=== PATIENT | male | born 1940 | race Caucasian/White ===

== ENCOUNTER 2017-01-06 06:14 | Day surgery (SDC) | payer MEDICARE, OTHER ==
[2016-12-29 10:38] VITALS: BMI 19.7
[~2017-01-06 06:14] MED LIST: LACTATED RINGERS 1,000 ML IV SCH
[2017-01-06] MEDS: FLURBIPROFEN 0.03% OPHTH DROPS 2.5 ML BTL OP ONE ×3 (06:43→07:00)
[2017-01-06] MEDS: CYCLOPENTOLATE 1% OPHTH SOLN 2 ML BTL OP ONE ×3 (06:45→06:57)
[2017-01-06] MEDS: PHENYLEPHRINE 10% OPHTH DROPS 5 ML BTL OP ONE ×3 (06:46→07:03)
[2017-01-06 06:52] VITALS: RESP 18; TEMP 97.9
[2017-01-06 07:20] LABS: Glucose,Whole Blood 118 mg/dL (75-99)
[2017-01-06] MEDS ORDERED: PROPOFOL 10 MG/ML 20 ML VIAL IV ONE (08:24)
[2017-01-06] MEDS ORDERED: EPINEPHrine (PF) 0.5 ML in BALANCED SALT IRRIG SOLN COMB2 500 ML IRRIGATION ONE (08:31)
[2017-01-06] MEDS ORDERED: BALANCED SALT IRRIG SOLN COMB2 15 ML IRRIG.SOLN IRRIGATION ONE (08:36)
[2017-01-06] MEDS ORDERED: HYALURONATE SODIUM INTRAOCULAR 1 EACH SYRINGE (10MG/ML) INTRAOCULA ONE ×2 (08:37)
--- NOTE | 2017-01-06 08:55 | P.OP ---
Date of Procedure: 01/06/17 Preoperative Diagnosis: Postoperative Diagnosis: Procedure(s) Performed: PREOPERATIVE DIAGNOSIS: Cataract, right eye. Miosis secondary to Flomax usage, right eye. POSTOPERATIVE DIAGNOSIS: Cataract, right eye. OPERATION: Phacoemulsification cataract, right eye. DESCRIPTION OF PROCEDURE: The patient was taken to the preoperative holding area. Intravenous Propofol was given so as to bring about adequate sedation. The following mixture was given for local anesthesia: 5 mL of 2% lidocaine, 5 mL of 0.75% Marcaine, and 1 mL of Wydase. Approximately 4 mL was injected in the retrobulbar space of the surgical eye. Additional 1 mL was then directed to the temporal area of the surgical eye. This was performed to allow adequate neurological block of the facial muscles. The patient was revived and then taken into the operative room. The patient was prepped and draped in the usual sterile manner for the operative eye. A lid speculum was put into position. The conjunctiva was resected back from the limbus in the 12 o'clock position. Bleeding was controlled with electrocautery. A #69 blade was then used and a half-thickness scleral incision approximately 1-mm posterior to the limbus was made on bare sclera. This was shelved in the clear cornea using a crescent knife. Next a 15-degree blade was used to make a stab incision at the 3 o' clock position at the corneolimbal interface. Keratome blade was then used and the superior wound was extended into the anterior chamber. Viscoelastic was injected into the anterior chamber and to maintain its form. A Maluygin ring was inserted and the pupil was stretched into a dilated position. Next, a cystotome was used and a continuous anterior capsulotomy was made without difficulty. Hydrodissection using a blunt cannula and BSS was performed. Phaco probe was then employed and a groove extending from 12 to 6 o'clock in the lens was created. A Ramiro wand was used through the stab incision so as to perform a divide and conquer technique. Next an irrigation aspiration probe was utilized and any residual cortex was removed from the eye. Again, viscoelastic was injected into the anterior chamber. An Jose posterior chamber lens implant was placed in the cartridge and injected into the anterior chamber without difficulty. The Kazeoney hook was utilized to spin the lens into position and this was again performed without any difficulty. The Maluygin ring was removed. The irrigation and aspiration probe was again employed and any residual viscoelastic was removed from the eye. Then BSS was injected into the limbal stab incision and the anterior chamber re-inflated. The conjunctiva was reapproximated using electrocautery. One drop of 0.25% Timoptic was placed over the corneal along with TobraDex ophthalmic ointment. Two sterile patches and a Samaniego eye shield were taped into position. The patient was transported to the recovery room in stable condition. Implants: Pathology: none sent Condition: stable Disposition: same day Indications for Procedure: Operative Findings: Description of Procedure:
[2017-01-06 09:20] VITALS: BP 145/68; PULSE 68
[2017-01-06] MEDS ORDERED: BUPIVACAINE (PF) 0.75% 5 ML, LIDOCAINE 4% (PF) 5 ML, HYALURONIDASE, HUMAN RECOMB 150 UNIT MISCELLANE ONE ×3 (23:00)
[2017-01-06] MEDS ORDERED: GENTAMICIN/PREDNISOL AC OPHTH OINT 3.5GM OPHTHALMIC ONE (23:00)
[2017-01-06] MEDS ORDERED: TIMOLOL 0.5% OPHTH SOLN (PF) 0.2 ML DROPERETTE OP ONE (23:00)
== END 2017-01-06 09:40 | disposition home or self-care (01) ==
LOC: OR 06:14
PROVIDERS: ATTEND Ophthalmology
DX: H26.9 Unspecified cataract (principal); H57.03 Miosis; E11.9 Type 2 diabetes mellitus without complications; Z79.84 Long term (current) use of oral hypoglycemic drugs; I10 Essential (primary) hypertension; E78.5 Hyperlipidemia, unspecified; I25.10 Atherosclerotic heart disease of native coronary artery without angina pectoris; Z87.891 Personal history of nicotine dependence; F99 Mental disorder, not otherwise specified; Z79.899 Other long term (current) drug therapy; Z88.8 Allergy status to other drugs, medicaments and biological substances
CPT/HCPCS: 66984; V2632; J2001; J3470; J0171; J2704

== ENCOUNTER 2017-03-03 10:23 | Day surgery (SDC) | payer MEDICARE, OTHER ==
[2017-02-25 11:38] VITALS: BMI 19.7
[2017-03-03] MEDS: PHENYLEPHRINE 10% OPHTH DROPS 5 ML BTL OP ONE ×3 (11:00→11:18)
[2017-03-03] MEDS: CYCLOPENTOLATE 1% OPHTH SOLN 2 ML BTL OP ONE ×3 (11:03→11:21)
[2017-03-03] MEDS: FLURBIPROFEN 0.03% OPHTH DROPS 2.5 ML BTL OP ONE ×3 (11:06→11:24)
[2017-03-03] MEDS ORDERED: LIDOCAINE 1% 20 ML VIAL (10MG/ML) FOR IV START INTRADERMA ONE (11:22)
[2017-03-03 11:34] VITALS: RESP 16; TEMP 97.9
[2017-03-03 11:55] LABS: Glucose,Whole Blood 92 mg/dL (75-99)
[2017-03-03] MEDS ORDERED: PROPOFOL 10 MG/ML 20 ML VIAL IV ONE (11:56)
[2017-03-03] MEDS ORDERED: BALANCED SALT IRRIG SOLN COMB2 15 ML IRRIG.SOLN INTRAOCULA ONE (12:01)
[2017-03-03] MEDS ORDERED: HYALURONATE SODIUM INTRAOCULAR 1 EACH SYRINGE (10MG/ML) INTRAOCULA ONE (12:02)
[2017-03-03] MEDS ORDERED: EPINEPHrine (PF) 0.5 ML in BALANCED SALT IRRIG SOLN COMB2 500 ML IRRIGATION ONE (12:04)
--- NOTE | 2017-03-03 12:24 | P.OP ---
Date of Procedure: 03/03/17 Preoperative Diagnosis: Postoperative Diagnosis: Procedure(s) Performed: PREOPERATIVE DIAGNOSIS: Cataract, left eye. POSTOPERATIVE DIAGNOSIS: Cataract, left eye. OPERATION: Phacoemulsification cataract, left eye. DESCRIPTION OF PROCEDURE: The patient was taken to the preoperative holding area. Intravenous Propofol was given so as to bring about adequate sedation. The following mixture was given for local anesthesia: 5 mL of 2% lidocaine, 5 mL of 0.75% Marcaine, and 1 mL of Wydase. Approximately 4 mL was injected in the retrobulbar space of the surgical eye. Additional 1 mL was then directed to the temporal area of the surgical eye. This was performed to allow adequate neurological block of the facial muscles. The patient was revived and then taken into the operative room. The patient was prepped and draped in the usual sterile manner for the operative eye. A lid speculum was put into position. The conjunctiva was resected back from the limbus in the 12 o'clock position. Bleeding was controlled with electrocautery. A #69 blade was then used and a half-thickness scleral incision approximately 1-mm posterior to the limbus was made on bare sclera. This was shelved in the clear cornea using a crescent knife. Next a 15-degree blade was used to make a stab incision at the 3 o' clock position at the corneolimbal interface. Keratome blade was then used and the superior wound was extended into the anterior chamber. Viscoelastic was injected into the anterior chamber and to maintain its form. A Maluygin ring was inserted and the pupil stretched into position. Next, a cystotome was used and a continuous anterior capsulotomy was made without difficulty. Hydrodissection using a blunt cannula and BSS was performed. Phaco probe was then employed and a groove extending from 12 to 6 o'clock in the lens was created. A Ramiro wand was used through the stab incision so as to perform a divide and conquer technique. Next an irrigation aspiration probe was utilized and any residual cortex was removed from the eye. Again, viscoelastic was injected into the anterior chamber. An Jose posterior chamber lens implant was placed in the cartridge and injected into the anterior chamber without difficulty. The Sinskey hook was utilized to spin the lens into position and this was again performed without any difficulty. The Maluygin ring was removed from the eye. The irrigation and aspiration probe was again employed and any residual viscoelastic was removed from the eye. Then BSS was injected into the limbal stab incision and the anterior chamber re- inflated. The conjunctiva was reapproximated using electrocautery. One drop of 0.25% Timoptic was placed over the corneal along with TobraDex ophthalmic ointment. Two sterile patches and a Samaniego eye shield were taped into position. The patient was transported to the recovery room in stable condition. Implants: Pathology: none sent Condition: stable Disposition: same day Indications for Procedure: Operative Findings: Description of Procedure:
[2017-03-03 12:49] VITALS: BP 183/83; PULSE 50
[2017-03-03] MEDS ORDERED: TIMOLOL 0.5% OPHTH SOLN (PF) 0.2 ML DROPERETTE OP ONE (23:00)
[2017-03-03] MEDS ORDERED: GENTAMICIN/PREDNISOL AC OPHTH OINT 3.5GM OPHTHALMIC ONE (23:00)
[2017-03-03] MEDS ORDERED: BUPIVACAINE (PF) 0.75% 5 ML, LIDOCAINE 4% (PF) 5 ML, HYALURONIDASE, HUMAN RECOMB 150 UNIT MISCELLANE ONE ×3 (23:00)
== END 2017-03-03 13:10 | disposition home or self-care (01) ==
LOC: OR 10:23 → EEVIPCON 14:00
PROVIDERS: ATTEND Ophthalmology
DX: H26.9 Unspecified cataract (principal); E11.9 Type 2 diabetes mellitus without complications; Z79.84 Long term (current) use of oral hypoglycemic drugs; I10 Essential (primary) hypertension; I25.10 Atherosclerotic heart disease of native coronary artery without angina pectoris; E78.5 Hyperlipidemia, unspecified; Z87.891 Personal history of nicotine dependence; Z79.899 Other long term (current) drug therapy; Z88.8 Allergy status to other drugs, medicaments and biological substances
CPT/HCPCS: 66984; V2632; J2001; J3470; J0171; J2704

== ENCOUNTER → 2018-11-10 | Outpatient (CLI) | payer MEDICARE, OTHER | END | disposition home or self-care (01) | LOC: LABWHC1 10:15 | PROVIDERS: ATTEND Internal Medicine Endocrinology, Diabetes & Metabolism | DX: E11.65 Type 2 diabetes mellitus with hyperglycemia (principal) | CPT/HCPCS: 36415; 82947; 84681 ==

== ENCOUNTER → 2019-02-28 | Outpatient (CLI) | payer MEDICARE, OTHER ==
[2019-02-28 15:57] LABS: LDL Cholesterol,Calculated 46.4 mg/dL (0.0-131.0); VLDL Calculation 16.6 mg/dL (5.00-40.00)
[2019-02-28 17:12] LABS: Hemoglobin A1C 6.4 % (4.0-6.0)
== END | disposition home or self-care (01) ==
LOC: LABWHC1 07:40
PROVIDERS: ATTEND Internal Medicine Endocrinology, Diabetes & Metabolism
DX: E11.65 Type 2 diabetes mellitus with hyperglycemia (principal)
CPT/HCPCS: 36415; 80061; 82043; 82570; 83036; 84443

== ENCOUNTER 2019-03-19 09:50 | Inpatient (IN) | payer MEDICARE, OTHER ==
[2019-03-19] MEDS ORDERED: SODIUM CHLORIDE 0.9% 1,000 ML IV STA (10:29)
[2019-03-19 11:17] LABS: Albumin 2.9 g/dL (3.5-5.0); Calcium 8.4 mg/dL (8.4-10.2); Potassium 4.8 mmol/L (3.5-5.1); Total Bilirubin 0.3 mg/dL (0.2-1.3); Total Protein 5.4 g/dL (6.3-8.2)
--- NOTE | 2019-03-19 11:21 | ED ---
General Adult HPI - General Chief complaint: Urogenital Stated complaint: ABDOMINAL AND GROIN PAIN Time Seen by Provider: 03/19/19 10:04 Source: patient, RN notes reviewed, old records reviewed, Caregiver Mode of arrival: ambulatory Limitations: no limitations - History of Present Illness Initial comments: Patient is a 78-year-old male who presents the emergency department today for evaluation for lower abdominal pain, complaining of dysuria. Patient currently is an long-term. Patient caregiver this time stated that he was at [facility] on March 04. That time he is found to have urinary retention and had a Romero catheter placed. He reports he then later followed up with Dr. Pruett and had a second Romero catheter placed as is the initial one was placed improperly. HEENT he had this second Romero catheter discontinued on of this week. Patient states he feels very fatigued. Patient's caregiver states that he's been acting more lethargic lately. Patient has had no fevers or chills. He reports he did have a bowel movement today. He denies any associated chest pain shortness of breath. He does have a history of mental handicap from a young age. She reportedly did receive a CT of the abdomen and pelvis he was at the other hospital according to caregiver. She stated that he found a mass at that time but she does not know exactly where. - Related Data Home Medications Medication Instructions Recorded Confirmed Calcitriol [Rocaltrol] 0.25 mcg PO DAILY 12/29/16 03/19/19 Cholecalciferol [Vitamin D3] 2,000 unit PO DAILY 12/29/16 03/19/19 Cyanocobalamin [Vitamin B-12] 500 mcg PO DAILY 12/29/16 03/19/19 Ferrous Sulfate [Feosol] 325 mg PO BID 12/29/16 03/19/19 Metoprolol Tartrate [Lopressor] 25 mg PO BID 12/29/16 03/19/19 Simvastatin [Zocor] 40 mg PO HS 12/29/16 03/19/19 Tamsulosin [Flomax] 0.4 mg PO DAILY 12/29/16 03/19/19 Acetaminophen Tab [Tylenol Tab] 650 mg PO Q6H PRN 03/19/19 03/19/19 Divalproex Sodium [Divalproex 1,000 mg PO DAILY 03/19/19 03/19/19 Sodium ER] Insulin Aspart [NovoLOG Flexpen] 5 units SQ AC-TID 03/19/19 03/19/19 Polyethylene Glycol 3350 [Miralax] 17 gm PO DAILY 03/19/19 03/19/19 Sennosides [Senna] 8.6 mg PO HS PRN 03/19/19 03/19/19 Allergies Allergy/AdvReac Type Severity Reaction Status Date / Time lithium Allergy Unknown Verified 03/19/19 10:42 Review of Systems ROS Statement: Those systems with pertinent positive or pertinent negative responses have been documented in the HPI. ROS Other: All systems not noted in ROS Statement are negative. Past Medical History Past Medical History: Cancer, Diabetes Mellitus, Hyperlipidemia, Hypertension, Myocardial Infarction (VT) Additional Past Medical History / Comment(s): Mental handicap-approx capacity at age 9.,bladder Ca approx 2013,elevated potassium Last Myocardial Infarction Date:: 2009 History of Any Multi-Drug Resistant Organisms: None Reported Past Surgical History: Heart Catheterization With Stent Additional Past Surgical History / Comment(s): bladder tumors removed; Cataract R eye Past Anesthesia/Blood Transfusion Reactions: No Reported Reaction Date of Last Stent Placement:: 2009 Past Psychological History: No Psychological Hx Reported Smoking Status: Former smoker Past Alcohol Use History: None Reported Past Drug Use History: None Reported - Past Family History Father Family Medical History: Cancer Additional Family Medical History / Comment(s): lung Mother Family Medical History: COPD Additional Family Medical History / Comment(s): bowel surgeries General Exam - General Exam Comments Initial Comments: Patient is a 78-year-old male. Patient appears pale. Limitations: no limitations General appearance: alert, in no apparent distress Head exam: Present: atraumatic, normocephalic, normal inspection Eye exam: Present: normal appearance, PERRL, EOMI. Absent: scleral icterus, conjunctival injection, periorbital swelling ENT exam: Present: normal exam, mucous membranes moist Neck exam: Present: normal inspection. Absent: tenderness, meningismus, lymphadenopathy Respiratory exam: Present: normal lung sounds bilaterally. Absent: respiratory distress, wheezes, rales, rhonchi, stridor Cardiovascular Exam: Present: regular rate, normal rhythm, normal heart sounds. Absent: systolic murmur, diastolic murmur, rubs, gallop, clicks GI/Abdominal exam: Present: soft, tenderness (lower abdominal tenderness), normal bowel sounds. Absent: distended, guarding, rebound, rigid exam: Absent: normal inspection (And has some irritation of her urethral meatus. Evidence of dried blood at the site likely related to trauma from recent catheters.) Extremities exam: Present: normal inspection, full ROM, normal capillary refill. Absent: tenderness, pedal edema, joint swelling, calf tenderness Back exam: Present: normal inspection Neurological exam: Present: alert, oriented X3, CN II-XII intact Psychiatric exam: Present: normal affect, normal mood Course Vital Signs 03/19/19 09:55 Temperature 97.3 F L Pulse Rate 54 L Respiratory 18 Rate Blood Pressure 91/55 O2 Sat by Pulse 99 Oximetry Medical Decision Making - Medical Decision Making Patient is a 78-year-old male presents with complaints of dysuria. On exam he does have some irritation over the urethral meatus with some dried blood. Patient was able to urinate on his own, after after he urinated he did have approximately 500 mL of urine retained within the bladder. He does not appear to be in significant pain or tenderness. He's had multiple urinary catheters and the fact the Patient is still urinating a little to avoid replacing another catheter at this time. Patient's urinalysis is positive for infection. Urine culture will be completed the Patient was given 1 g of Rocephin. I reviewed patient's CT findings from 712 the [facility]. There is concern for hepatic mass, gallbladder is elongated, there is some distention of the urinary bladder. Other findings noted in the chart. Patient family informed of these results. I reviewed lab studies today which does show an increased alk phos. [facility]. Hemoglobin is slightly increased today 10.1. Patient's GFR does show improvement his previous BUN was 63 and creatinine was 2.0. Today it is 50 for BUN and creatinine is 1.45. I discussed all these findings with family and they're concerned for continued urinary retention and urinary tract infection as well as the liver findings. We will do a gallbladder ultrasound. Patient's case discussed with Dr. Mejia who discussed the case with [facility] Hospitalist. - Lab Data Result diagrams: 03/19/19 10:10 03/19/19 10:10 Lab Results 07/03/19/19 03/19/19 Range/Units 10:10 10:10 10:10 WBC 3.3 L (3.8-10.6) k/uL RBC 3.20 L (4.30-5.90) m/uL Hgb 10.5 L (13.0-17.5) gm/dL Hct 33.6 L (39.0-53.0) % MCV 104.9 H (80.0-100.0) fL MCH 32.7 (25.0-35.0) pg MCHC 31.2 (31.0-37.0) g/dL RDW 15.2 (11.5-15.5) % Plt Count 68 L (150-450) k/uL Neutrophils % 74 % Lymphocytes % 17 % Monocytes % 6 % Eosinophils % 1 % Basophils % 0 % Neutrophils # 2.4 (1.3-7.7) k/uL Lymphocytes # 0.5 L (1.0-4.8) k/uL Monocytes # 0.2 (0-1.0) k/uL Eosinophils # 0.0 (0-0.7) k/uL Basophils # 0.0 (0-0.2) k/uL Manual Slide Review Performed Hypochromasia Slight Macrocytosis Moderate Sodium 143 (137-145) mmol/L Potassium 4.8 (3.5-5.1) mmol/L Chloride 113 H (98-107) mmol/L Carbon Dioxide 21 L (22-30) mmol/L Anion Gap 9 mmol/L BUN 50 H (9-20) mg/dL Creatinine 1.45 H (0.66-1.25) mg/dL Est GFR (CKD-EPI)AfAm 54 (>60 ml/min/1.73 sqM) Est GFR (CKD-EPI)NonAf 46 (>60 ml/min/1.73 sqM) Glucose 156 H (74-99) mg/dL Plasma Lactic Acid Alejandro (0.7-2.0) mmol/L Calcium 8.4 (8.4-10.2) mg/dL Total Bilirubin 0.3 (0.2-1.3) mg/dL AST 70 H (17-59) U/L ALT 71 (21-72) U/L Alkaline Phosphatase 527 H (38-126) U/L Total Protein 5.4 L (6.3-8.2) g/dL Albumin 2.9 L (3.5-5.0) g/dL Amylase 45 (30-110) U/L Lipase 19 L (23-300) U/L Urine Color Yellow Urine Appearance Cloudy (Clear) Urine pH 5.0 (5.0-8.0) Ur Specific [place] 1.014 (1.001-1.035) Urine Protein Trace H (Negative) Urine Glucose (UA) Negative (Negative) Urine Ketones Negative (Negative) Urine Blood Moderate H (Negative) Urine Nitrite Negative (Negative) Urine Bilirubin Negative (Negative) Urine Urobilinogen <2.0 (<2.0) mg/dL Ur Leukocyte Esterase Large H (Negative) Urine RBC 30 H (0-5) /hpf Urine WBC >182 H (0-5) /hpf Urine WBC Clumps Many H (None) /hpf Urine Bacteria Many H (None) /hpf 03/19/19 Range/Units 10:10 WBC (3.8-10.6) k/uL RBC (4.30-5.90) m/uL Hgb (13.0-17.5) gm/dL Hct (39.0-53.0) % MCV (80.0-100.0) fL MCH (25.0-35.0) pg MCHC (31.0-37.0) g/dL RDW (11.5-15.5) % Plt Count (150-450) k/uL Neutrophils % % Lymphocytes % % Monocytes % % Eosinophils % % Basophils % % Neutrophils # (1.3-7.7) k/uL Lymphocytes # (1.0-4.8) k/uL Monocytes # (0-1.0) k/uL Eosinophils # (0-0.7) k/uL Basophils # (0-0.2) k/uL Manual Slide Review Hypochromasia Macrocytosis Sodium (137-145) mmol/L Potassium (3.5-5.1) mmol/L Chloride (98-107) mmol/L Carbon Dioxide (22-30) mmol/L Anion Gap mmol/L BUN (9-20) mg/dL Creatinine (0.66-1.25) mg/dL Est GFR (CKD-EPI)AfAm (>60 ml/min/1.73 sqM) Est GFR (CKD-EPI)NonAf (>60 ml/min/1.73 sqM) Glucose (74-99) mg/dL Plasma Lactic Acid Alejandro 1.5 (0.7-2.0) mmol/L Calcium (8.4-10.2) mg/dL Total Bilirubin (0.2-1.3) mg/dL AST (17-59) U/L ALT (21-72) U/L Alkaline Phosphatase (38-126) U/L Total Protein (6.3-8.2) g/dL Albumin (3.5-5.0) g/dL Amylase (30-110) U/L Lipase (23-300) U/L Urine Color Urine Appearance (Clear) Urine pH (5.0-8.0) Ur Specific [place] (1.001-1.035) Urine Protein (Negative) Urine Glucose (UA) (Negative) Urine Ketones (Negative) Urine Blood (Negative) Urine Nitrite (Negative) Urine Bilirubin (Negative) Urine Urobilinogen (<2.0) mg/dL Ur Leukocyte Esterase (Negative) Urine RBC (0-5) /hpf Urine WBC (0-5) /hpf Urine WBC Clumps (None) /hpf Urine Bacteria (None) /hpf - Radiology Data Radiology results: report reviewed Reviewed the CT from 712 from [facility]. Report of the impression is as follows: Marked decreased attenuation of blood. The heart is just the anemia. Marked limited evaluation due to lack of oral contrast and possibility of intra-abdominal fat and scar ascites insinuating between bowel loops are closely approximated. No evidence of bowel obstruction or pneumoperitoneum. Gallbladders elongated and nearly hydropic. Correlate with lab values to assess or cholecystitis. I suspicion for hepatic mass measuring 5.3 cm a pressing on the theirno hepatitis. Contrast enhanced evaluation is necessary for further evaluation. Findings of chronic pancreatitis. Calcified chronic infrarenal abdominal aortic dissection. Markedly distended urinary bladder with irregularity on the posterior wall which could relate urinary bladder diverticulum. Bibasilar airspace disease likely atelectasis although pneumonitis as possible. Disposition Clinical Impression: UTI (urinary tract infection), Elevated alkaline phosphatase level, Liver mass, History of urinary retention Disposition: ADMITTED IP TO THIS HOSP Condition: Stable Is patient prescribed a controlled substance at d/c from ED?: No Referrals: Corinna Barrera III, MD [Primary Care Provider] - 1-2 days Time of Disposition: 13:28
[2019-03-19 11:36] LABS: Basophils % (A) 0 %; Eosinophils % (A) 1 %; HCT 33.6 % (39.0-53.0); HGB 10.5 gm/dL (13.0-17.5); Hypochromasia Slight; Lymphocytes # (A) 0.5 k/uL (1.0-4.8); Lymphocytes % (A) 17 %; MCH 32.7 pg (25.0-35.0); MCHC 31.2 g/dL (31.0-37.0); MCV 104.9 fL (80.0-100.0); Macrocytosis Moderate; Mean Platelet Volume 8.4; Monocytes # (A) 0.2 k/uL (0-1.0); Monocytes % (A) 6 %; Neutrophils # (A) 2.4 k/uL (1.3-7.7); Neutrophils % (A) 74 %; RDW 15.2 % (11.5-15.5); WBC 3.3 k/uL (3.8-10.6)
[2019-03-19 12:14] LABS: Platelet Count 68 k/uL (150-450)
[2019-03-19 12:16] LABS: Appearance,Urine Cloudy (Clear); Bacteria,Urine Many /hpf; Bilirubin,Urine Negative (Negative); Blood,Urine Moderate (Negative); Color,Urine Yellow; Glucose,Urine (UA) Negative (Negative); Ketones,Urine Negative (Negative); Leukocyte Esterase,Urine Large (Negative); Nitrite,Urine Negative (Negative); Protein,Urine Trace (Negative); RBC,Urine 30 /hpf (0-5); Specific Gravity,Urine 1.014 (1.001-1.035); Urobilinogen,Urine <2.0 mg/dL (<2.0); WBC,Urine >182 /hpf (0-5)
[2019-03-19] MEDS ORDERED: cefTRIAXone IN SWFI 1,000 MG/10 ML SYRINGE IVP STA (12:24)
[2019-03-19] MEDS ORDERED: NALOXONE 0.4 MG/ML 1 ML VIAL IV PRN (13:29)
[2019-03-19] MEDS: SODIUM CHLORIDE 0.9% 1,000 ML IV SCH (13:46)
--- NOTE | 2019-03-19 13:46 | US ---
EXAMINATION TYPE: US gallbladder DATE OF EXAM: 03/19/2019 COMPARISON: NONE CLINICAL HISTORY: Pain. RUQ pain EXAM MEASUREMENTS: Liver Length: 15.7 cm Gallbladder Wall: 0.3 cm CBD: 1.8 cm Right Kidney: 4.5 x 4.5 cm Difficult and limited study due to overlying bowel gas, most of exam done intercostally Pancreas: obscured by overlying midline bowel gas Liver: limited by rib shadowing and overlying bowel gas, mild intrahepatic ductal dilation seen Gallbladder: hydropic, echoes seen within, wall borderline thickened Evidence for sonographic Pacheco's sign: no CBD: dilated Right Kidney: inferior pole obscured by overlying bowel gas Fluid seen within RUQ anterior to liver, around gallbladder and within Morrisons pouch Gallbladder is not visualized. Liver is normal in size without biliary dilatation. Sludge within the gallbladder. The gallbladder wall measures 3.1 mm. This common hepatic duct measure s 1.8 cm. There is no sonographic Pacheco's sign. Limited views of the right kidney are unremarkable. There is some fluid fluid in the right upper quad rant. IMPRESSION: 1. MILD ASCITES. 2. SLUDGE-FILLED HYDROPIC GALLBLADDER WITH A THICKENED GALLBLADDER WALL MAY REPRESENT CHRONIC CHOLECY STITIS. 3. LIMITED STUDY.
[2019-03-19 15:22] VITALS: BMI 18.8
[2019-03-19 17:13] LABS: Glucose,Whole Blood 122 mg/dL (75-99)
[2019-03-19] MEDS: INSULIN ASPART (NovoLOG) 100 UNIT/ML VIAL SQ SCH ×2 (17:52→20:27)
[2019-03-19] MEDS ORDERED: SENNOSIDES 8.6 MG TAB PO PRN (18:28)
[2019-03-19] MEDS ORDERED: ACETAMINOPHEN TAB 325 MG TAB PO PRN (18:28)
[2019-03-19] MEDS ORDERED: HYDROcodone/APAP 5-325MG 1 EACH TAB PO PRN (19:12)
[2019-03-19] MEDS ORDERED: ALPRAZolam 0.25 MG TAB PO PRN (19:12)
[2019-03-19 20:09] LABS: Glucose,Whole Blood 250 mg/dL (75-99)
[2019-03-19] MEDS: FERROUS SULFATE 325 MG TAB PO SCH (20:27)
[2019-03-19] MEDS: HEPARIN SODIUM,PORCINE 5,000 UNIT/ML 1 ML VIAL SQ SCH (20:27)
[2019-03-19] MEDS: METOPROLOL TARTRATE 25 MG TAB PO SCH (20:27)
[2019-03-19] MEDS: ATORVASTATIN 20 MG TAB PO SCH (20:27)
--- NOTE | 2019-03-19 21:48 | HP ---
HISTORY AND PHYSICAL DATE OF SERVICE: 03/19/2019 CHIEF COMPLAINT: Lower abdominal and diffuse abdominal pain and dysuria. HISTORY OF PRESENT ILLNESS: This 78-year-old gentleman with a past medical history of multiple medical problems including diabetes, hypertension, hyperlipidemia, myocardial infarction, history of mental handicap, history of bladder cancer in 2013, history of CAD/ stent being followed by Dr. Barrera in the outpatient setting. The patient recently had problems with urinary retention. A catheter was inserted and subsequently it was removed by Dr. Pruett. The patient apparently was in [facility] and CT scan at that time showed multiple hepatic lesions. The patient is living in an assisted living facility. Because of increasing dysuria and pain, lower abdominal pain and pain at the tip of the penis, the patient was taken to [facility] and admitted for further evaluation and treatment. There is no history of fever, rigors or chills. No history of headache, loss of consciousness or seizures. The patient also had an ultrasound of the abdomen which showed sludge and possibly chronic cholecystitis also. There is no history of fever, rigors, chills at this time. PAST MEDICAL HISTORY: History of diabetes type 2, hypertension, hyperlipidemia, myocardial infarction, history of bladder cancer. MEDICATIONS: Prior to admission home medications are: 1. Senna 8.6 q.h.s. p.r.n. 2. MiraLAX 17 g p.o. daily. 3. Tylenol 650 q.6h p.r.n. 4. Depakote 1000 mg p.o. daily. 5. Vitamin B12 500 mcg. 6. Vitamin D3 2000 daily. 7. Rocaltrol 0.25 mcg p.o. daily. 8. NovoLog 5 units a.c. t.i.d. 9. Flomax 0.4 daily. 10.Zocor 40 mg q.h.s. 11.Lopressor 25 mg p.o. b.i.d. 12.Iron sulfate 320 mg p.o. b.i.d. ALLERGIES: LITHIUM. FAMILY HISTORY: History of lung cancer in the family. SOCIAL HISTORY: Previous history of smoking. No history of current smoking or alcohol intake. REVIEW OF SYSTEMS: ENT: Diminished vision. Diminished hearing. CARDIOVASCULAR: No angina or palpitations. RESPIRATION: As mentioned earlier. GI: As mentioned earlier. : As mentioned earlier. CENTRAL NERVOUS SYSTEM: No numbness or weakness. ALLERGY/IMMUNOLOGY: No asthma or hayfever. MUSCULOSKELETAL as mentioned earlier. HEMATOLOGY/ONCOLOGY: No history of anemia. ENDOCRINE: History of diabetes. No hypothyroidism. CONSTITUTIONAL: As mentioned earlier. DERMATOLOGY: Negative. RHEUMATOLOGY negative. PSYCHIATRY as mentioned earlier. PHYSICAL EXAMINATION: Alert and oriented x3. Pulse is 48, blood pressure 149/90, respiration 20, temperature 97 degrees, pulse ox 99 on room air. HEENT: Conjunctivae normal. NECK: No JVD. CARDIOVASCULAR: S1, S2 muffled. No S3, no S4. RESPIRATORY: Breath sounds diminished in the bases. No rhonchi. No crackles. ABDOMEN: Soft. Mild diffuse tenderness in the lower abdomen. No guarding. No rigidity. No mass palpable. Minimal erythema of the penis tip present. LEGS: No edema. No swelling. NERVOUS SYSTEM: Higher functions as mentioned earlier. Moves all 4 limbs. No focal motor or sensory deficits. LYMPHATICS: No lymph nodes palpable in the neck, axillae or groin. SKIN: No ulcer, rash or bleeding. JOINTS: No active deforming arthropathy. LABS: WBC 3.2, hemoglobin 10.4, platelets 68, and creatinine is 1.44. UA noted. ASSESSMENT: 1. Acute lower abdominal pain with acute urinary tract infection for evaluation. 2. Multiple hepatic lesions, rule out malignancy. 3. Increased AST and as well as alkaline phosphatase. 4. Increased creatinine with possible acute renal failure. 5. Mild pancytopenia with anemia of undetermined etiology. 6. Diabetes mellitus type 2. 7. Hypertension. 8. Hyperlipidemia. 9. History of myocardial infarction. 10.History of mental handicap. 11.History of bladder cancer. 12.History of coronary artery disease/ stent. 13.Remote history of nicotine dependence. 14.Remote history of severe protein calorie malnutrition with BMI of 18.8. 15.FULL CODE. RECOMMENDATIONS AND DISCUSSION: In this 78-year-old gentleman who presented with multiple complex medical issues, we will monitor the patient closely. Continue the current medications, management and symptomatic treatment. We will initiate broad-spectrum IV antibiotics. Otherwise, I would recommend DVT prophylaxis and resume the home medications. Further recommendations to follow. A copy of dictation forwarded to Dr. Barrera who is the primary physician. MMODL / SHELLN: [id number] /
[2019-03-20] MEDS: SODIUM CHLORIDE 0.9% 1,000 ML IV SCH ×3 (06:25→22:00)
[2019-03-20 07:07] LABS: Glucose,Whole Blood 146 mg/dL (75-99)
[2019-03-20] MEDS: INSULIN ASPART (NovoLOG) 100 UNIT/ML VIAL SQ SCH ×7 (07:20→21:59)
[2019-03-20] MEDS: TAMSULOSIN 0.4 MG CAP.ER.24H PO SCH (07:51)
[2019-03-20] MEDS: METOPROLOL TARTRATE 25 MG TAB PO SCH ×2 (07:51→21:59)
[2019-03-20] MEDS: FERROUS SULFATE 325 MG TAB PO SCH ×2 (07:51→21:59)
[2019-03-20] MEDS: POLYETHYLENE GLYCOL 3350 17 GM POWD.PACK PO SCH (07:52)
[2019-03-20] MEDS: CHOLECALCIFEROL 1,000 UNIT TAB PO SCH (07:52)
[2019-03-20] MEDS: CYANOCOBALAMIN 500 MCG TAB PO SCH (07:52)
[2019-03-20] MEDS: HEPARIN SODIUM,PORCINE 5,000 UNIT/ML 1 ML VIAL SQ SCH ×2 (07:53→21:59)
[2019-03-20] MEDS: CALCITRIOL 0.25 MCG CAP PO SCH (07:54)
[2019-03-20] MEDS: DIVALPROEX ER 500 MG TAB.ER.24H PO SCH (07:55)
--- NOTE | 2019-03-20 08:23 | P.GSCN ---
History of Present Illness Consult date: 03/20/19 History of present illness: The patient is 78. We are asked see the patient for urine infection and urine retention. He is known to for this problem recently. He was in [facility] with a catheter. Apparently the catheter was positioned and appropriately. It was replaced. The catheter is some scar has been removed and he seems to be voiding without difficulty. He is having some dysuria. His urine did look infected. Review of Systems All systems: negative - Constitutional Denies fever, Denies weight loss - EENT Eyes: denies blurred vision Ears, nose, mouth and throat: Denies dysphagia - Cardiovascular Denies chest pain, Denies shortness of breath - Respiratory Denies cough, Denies 7 - Gastrointestinal Reports as per HPI - Genitourinary Denies dysuria, Denies hematuria - Integumentary Denies rash, Denies unusual bruising - Neurological Denies headaches, Denies syncope - Hematologic/Lymphatic Denies easy bleeding, Denies easy bruising Past Medical History Past Medical History: Cancer, Diabetes Mellitus, Hyperlipidemia, Hypertension, Myocardial Infarction ([place]) Additional Past Medical History / Comment(s): Mental handicap-approx capacity at age 9.,bladder Ca approx 2013,elevated potassium Last Myocardial Infarction Date:: 2009 History of Any Multi-Drug Resistant Organisms: None Reported Past Surgical History: Heart Catheterization With Stent Additional Past Surgical History / Comment(s): bladder tumors removed; Cataract R eye Past Anesthesia/Blood Transfusion Reactions: No Reported Reaction Date of Last Stent Placement:: 2009 Past Psychological History: No Psychological Hx Reported Additional Psychological History / Comment(s): mentally handicapped Smoking Status: Former smoker Past Alcohol Use History: None Reported Additional Past Alcohol Use History / Comment(s): quit smoking 2009,1ppd Past Drug Use History: None Reported - Past Family History Father Family Medical History: Cancer Additional Family Medical History / Comment(s): lung Mother Family Medical History: COPD Additional Family Medical History / Comment(s): bowel surgeries Medications and Allergies Home Medications Medication Instructions Recorded Confirmed Type Calcitriol [Rocaltrol] 0.25 mcg PO DAILY 12/29/16 03/19/19 History Cholecalciferol [Vitamin D3] 2,000 unit PO DAILY 12/29/16 03/19/19 History Cyanocobalamin [Vitamin B-12] 500 mcg PO DAILY 12/29/16 03/19/19 History Ferrous Sulfate [Feosol] 325 mg PO BID 12/29/16 03/19/19 History Metoprolol Tartrate [Lopressor] 25 mg PO BID 12/29/16 03/19/19 History Simvastatin [Zocor] 40 mg PO HS 12/29/16 03/19/19 History Tamsulosin [Flomax] 0.4 mg PO DAILY 12/29/16 03/19/19 History Acetaminophen Tab [Tylenol Tab] 650 mg PO Q6H PRN 03/19/19 03/19/19 History Divalproex Sodium [Divalproex 1,000 mg PO DAILY 03/19/19 03/19/19 History Sodium ER] Insulin Aspart [NovoLOG Flexpen] 5 units SQ AC-TID 03/19/19 03/19/19 History Polyethylene Glycol 3350 [Miralax] 17 gm PO DAILY 03/19/19 03/19/19 History Sennosides [Senna] 8.6 mg PO HS PRN 03/19/19 03/19/19 History Allergies Allergy/AdvReac Type Severity Reaction Status Date / Time lithium Allergy Unknown Verified 03/19/19 10:42 Surgical - Exam Vital Signs Temp Pulse Resp BP Pulse Ox 97.3 F L 54 L 18 91/55 99 03/19/19 09:55 03/19/19 09:55 03/19/19 09:55 03/19/19 09:55 03/19/19 09:55 - General well developed, well nourished, no distress - Eyes PERRL - ENT no hearing loss - Neck trachea midline - Respiratory normal expansion, normal respiratory effort - Abdomen Abdomen: soft, non tender - Genitourinary Deferred is recently done by - Integumentary no rash - Neurologic normal coordination, normal sensation - Musculoskeletal normal posture - Psychiatric oriented to time, oriented to person, oriented to place, speech is normal, memory intact Results - Labs 03/19/19 10:10 03/19/19 10:10 Abnormal Lab Results - Last 24 Hours (Table) 03/19/19 03/19/19 03/19/19 Range/Units 10:10 10:10 10:10 WBC 3.3 L (3.8-10.6) k/uL RBC 3.20 L (4.30-5.90) m/uL Hgb 10.5 L (13.0-17.5) gm/dL Hct 33.6 L (39.0-53.0) % MCV 104.9 H (80.0-100.0) fL Plt Count 68 L (150-450) k/uL Lymphocytes # 0.5 L (1.0-4.8) k/uL Chloride 113 H (98-107) mmol/L Carbon Dioxide 21 L (22-30) mmol/L BUN 50 H (9-20) mg/dL Creatinine 1.45 H (0.66-1.25) mg/dL Glucose 156 H (74-99) mg/dL POC Glucose (mg/dL) (75-99) mg/dL AST 70 H (17-59) U/L Alkaline Phosphatase 527 H (38-126) U/L Total Protein 5.4 L (6.3-8.2) g/dL Albumin 2.9 L (3.5-5.0) g/dL Lipase 19 L (23-300) U/L Urine Protein Trace H (Negative) Urine Blood Moderate H (Negative) Ur Leukocyte Esterase Large H (Negative) Urine RBC 30 H (0-5) /hpf Urine WBC >182 H (0-5) /hpf Urine WBC Clumps Many H (None) /hpf Urine Bacteria Many H (None) /hpf 03/19/19 03/19/19 03/20/19 Range/Units 17:11 20:08 07:05 WBC (3.8-10.6) k/uL RBC (4.30-5.90) m/uL Hgb (13.0-17.5) gm/dL Hct (39.0-53.0) % MCV (80.0-100.0) fL Plt Count (150-450) k/uL Lymphocytes # (1.0-4.8) k/uL Chloride (98-107) mmol/L Carbon Dioxide (22-30) mmol/L BUN (9-20) mg/dL Creatinine (0.66-1.25) mg/dL Glucose (74-99) mg/dL POC Glucose (mg/dL) 122 H 250 H 146 H (75-99) mg/dL AST (17-59) U/L Alkaline Phosphatase (38-126) U/L Total Protein (6.3-8.2) g/dL Albumin (3.5-5.0) g/dL Lipase (23-300) U/L Urine Protein (Negative) Urine Blood (Negative) Ur Leukocyte Esterase (Negative) Urine RBC (0-5) /hpf Urine WBC (0-5) /hpf Urine WBC Clumps (None) /hpf Urine Bacteria (None) /hpf Microbiology - Last 24 Hours (Table) 03/19/19 10:10 Blood Culture - Final Blood 03/19/19 10:10 Urine Culture - Preliminary Urine,Voided Diabetes panel 03/19/19 Range/Units 10:10 Sodium 143 (137-145) mmol/L Potassium 4.8 (3.5-5.1) mmol/L Chloride 113 H (98-107) mmol/L Carbon Dioxide 21 L (22-30) mmol/L BUN 50 H (9-20) mg/dL Creatinine 1.45 H (0.66-1.25) mg/dL Glucose 156 H (74-99) mg/dL Calcium 8.4 (8.4-10.2) mg/dL AST 70 H (17-59) U/L ALT 71 (21-72) U/L Alkaline Phosphatase 527 H (38-126) U/L Total Protein 5.4 L (6.3-8.2) g/dL Albumin 2.9 L (3.5-5.0) g/dL Calcium panel 03/19/19 Range/Units 10:10 Calcium 8.4 (8.4-10.2) mg/dL Albumin 2.9 L (3.5-5.0) g/dL Pituitary panel 03/19/19 Range/Units 10:10 Sodium 143 (137-145) mmol/L Potassium 4.8 (3.5-5.1) mmol/L Chloride 113 H (98-107) mmol/L Carbon Dioxide 21 L (22-30) mmol/L BUN 50 H (9-20) mg/dL Creatinine 1.45 H (0.66-1.25) mg/dL Glucose 156 H (74-99) mg/dL Calcium 8.4 (8.4-10.2) mg/dL Adrenal panel 03/19/19 Range/Units 10:10 Sodium 143 (137-145) mmol/L Potassium 4.8 (3.5-5.1) mmol/L Chloride 113 H (98-107) mmol/L Carbon Dioxide 21 L (22-30) mmol/L BUN 50 H (9-20) mg/dL Creatinine 1.45 H (0.66-1.25) mg/dL Glucose 156 H (74-99) mg/dL Calcium 8.4 (8.4-10.2) mg/dL Total Bilirubin 0.3 (0.2-1.3) mg/dL AST 70 H (17-59) U/L ALT 71 (21-72) U/L Alkaline Phosphatase 527 H (38-126) U/L Total Protein 5.4 L (6.3-8.2) g/dL Albumin 2.9 L (3.5-5.0) g/dL Assessment and Plan Assessment: Impression: Urine retention apparently resolved. Urinary tract infection Recommendations: At this point in time I will check urine residuals but nothing further urologically will be required.
--- NOTE | 2019-03-20 09:42 | P.GSCN ---
History of Present Illness Consult date: 03/20/19 Reason for Consult: Abdominal pain History of present illness: Patient came to the emergency department complaining of dysuria and pain from Fo chan catheter. Patient is complaining of fatigue. No complaints of pain initially in the ER. Denies pain currently. We are consulted however for chronic cholecystitis. Patient had a CAT scan performed while at [facility] apparently showing multiple hepatic lesions. Patient with e levated alkaline phosphatase and AST. Bilirubin normal. An ultrasound of the patient's gallbladder took place showing sludge and a thickened wall. No liver lesions were commented upon. The patient is not able to provide any history as to what the plan was regarding his liver lesions. It is unclear who saw the patient while he was at [facility] for this issue. No history of liver issues in the past reportedly. He does have a personal history of bladder cancer previously. Review of Systems The patient denies any acute changes in vision or hearing, no dysphagia or odynophagia, no chest pain or shortness of breath, no dysuria or hematuria, no headache, no runny nose, no rectal bleeding or melena, no unexplained weight loss Past Medical History Past Medical History: Cancer, Diabetes Mellitus, Hyperlipidemia, Hypertension, Myocardial Infarction ([place]) Additional Past Medical History / Comment(s): Mental handicap-approx capacity at age 9.,bladder Ca approx 2013,elevated potassium Last Myocardial Infarction Date:: 2009 History of Any Multi-Drug Resistant Organisms: None Reported Past Surgical History: Heart Catheterization With Stent Additional Past Surgical History / Comment(s): bladder tumors removed; Cataract R eye Past Anesthesia/Blood Transfusion Reactions: No Reported Reaction Date of Last Stent Placement:: 2009 Past Psychological History: No Psychological Hx Reported Additional Psychological History / Comment(s): mentally handicapped Smoking Status: Former smoker Past Alcohol Use History: None Reported Additional Past Alcohol Use History / Comment(s): quit smoking 2009,1ppd Past Drug Use History: None Reported - Past Family History Father Family Medical History: Cancer Additional Family Medical History / Comment(s): lung Mother Family Medical History: COPD Additional Family Medical History / Comment(s): bowel surgeries Medications and Allergies Home Medications Medication Instructions Recorded Confirmed Type Calcitriol [Rocaltrol] 0.25 mcg PO DAILY 12/29/16 03/19/19 History Cholecalciferol [Vitamin D3] 2,000 unit PO DAILY 12/29/16 03/19/19 History Cyanocobalamin [Vitamin B-12] 500 mcg PO DAILY 12/29/16 03/19/19 History Ferrous Sulfate [Feosol] 325 mg PO BID 12/29/16 03/19/19 History Metoprolol Tartrate [Lopressor] 25 mg PO BID 12/29/16 03/19/19 History Simvastatin [Zocor] 40 mg PO HS 12/29/16 03/19/19 History Tamsulosin [Flomax] 0.4 mg PO DAILY 12/29/16 03/19/19 History Acetaminophen Tab [Tylenol Tab] 650 mg PO Q6H PRN 03/19/19 03/19/19 History Divalproex Sodium [Divalproex 1,000 mg PO DAILY 03/19/19 03/19/19 History Sodium ER] Insulin Aspart [NovoLOG Flexpen] 5 units SQ AC-TID 03/19/19 03/19/19 History Polyethylene Glycol 3350 [Miralax] 17 gm PO DAILY 03/19/19 03/19/19 History Sennosides [Senna] 8.6 mg PO HS PRN 03/19/19 03/19/19 History Allergies Allergy/AdvReac Type Severity Reaction Status Date / Time lithium Allergy Unknown Verified 03/19/19 10:42 Surgical - Exam Vital Signs Temp Pulse Resp BP Pulse Ox 97.3 F L 54 L 18 91/55 99 03/19/19 09:55 03/19/19 09:55 03/19/19 09:55 03/19/19 09:55 03/19/19 09:55 Physical exam: General: Well-developed, well-nourished HEENT: Normocephalic, sclerae nonicteric Abdomen: Nontender, nondistended Extremities: No edema Neuro: Alert and oriented Results - Labs 03/19/19 10:10 03/19/19 10:10 Abnormal Lab Results - Last 24 Hours (Table) 03/19/19 03/19/19 03/19/19 Range/Units 10:10 10:10 10:10 WBC 3.3 L (3.8-10.6) k/uL RBC 3.20 L (4.30-5.90) m/uL Hgb 10.5 L (13.0-17.5) gm/dL Hct 33.6 L (39.0-53.0) % MCV 104.9 H (80.0-100.0) fL Plt Count 68 L (150-450) k/uL Lymphocytes # 0.5 L (1.0-4.8) k/uL Chloride 113 H (98-107) mmol/L Carbon Dioxide 21 L (22-30) mmol/L BUN 50 H (9-20) mg/dL Creatinine 1.45 H (0.66-1.25) mg/dL Glucose 156 H (74-99) mg/dL POC Glucose (mg/dL) (75-99) mg/dL AST 70 H (17-59) U/L Alkaline Phosphatase 527 H (38-126) U/L Total Protein 5.4 L (6.3-8.2) g/dL Albumin 2.9 L (3.5-5.0) g/dL Lipase 19 L (23-300) U/L Urine Protein Trace H (Negative) Urine Blood Moderate H (Negative) Ur Leukocyte Esterase Large H (Negative) Urine RBC 30 H (0-5) /hpf Urine WBC >182 H (0-5) /hpf Urine WBC Clumps Many H (None) /hpf Urine Bacteria Many H (None) /hpf 03/19/19 03/19/19 03/20/19 Range/Units 17:11 20:08 07:05 WBC (3.8-10.6) k/uL RBC (4.30-5.90) m/uL Hgb (13.0-17.5) gm/dL Hct (39.0-53.0) % MCV (80.0-100.0) fL Plt Count (150-450) k/uL Lymphocytes # (1.0-4.8) k/uL Chloride (98-107) mmol/L Carbon Dioxide (22-30) mmol/L BUN (9-20) mg/dL Creatinine (0.66-1.25) mg/dL Glucose (74-99) mg/dL POC Glucose (mg/dL) 122 H 250 H 146 H (75-99) mg/dL AST (17-59) U/L Alkaline Phosphatase (38-126) U/L Total Protein (6.3-8.2) g/dL Albumin (3.5-5.0) g/dL Lipase (23-300) U/L Urine Protein (Negative) Urine Blood (Negative) Ur Leukocyte Esterase (Negative) Urine RBC (0-5) /hpf Urine WBC (0-5) /hpf Urine WBC Clumps (None) /hpf Urine Bacteria (None) /hpf Microbiology - Last 24 Hours (Table) 03/19/19 10:10 Blood Culture - Final Blood 03/19/19 10:10 Urine Culture - Preliminary Urine,Voided Diabetes panel 03/19/19 Range/Units 10:10 Sodium 143 (137-145) mmol/L Potassium 4.8 (3.5-5.1) mmol/L Chloride 113 H (98-107) mmol/L Carbon Dioxide 21 L (22-30) mmol/L BUN 50 H (9-20) mg/dL Creatinine 1.45 H (0.66-1.25) mg/dL Glucose 156 H (74-99) mg/dL Calcium 8.4 (8.4-10.2) mg/dL AST 70 H (17-59) U/L ALT 71 (21-72) U/L Alkaline Phosphatase 527 H (38-126) U/L Total Protein 5.4 L (6.3-8.2) g/dL Albumin 2.9 L (3.5-5.0) g/dL Calcium panel 03/19/19 Range/Units 10:10 Calcium 8.4 (8.4-10.2) mg/dL Albumin 2.9 L (3.5-5.0) g/dL Pituitary panel 03/19/19 Range/Units 10:10 Sodium 143 (137-145) mmol/L Potassium 4.8 (3.5-5.1) mmol/L Chloride 113 H (98-107) mmol/L Carbon Dioxide 21 L (22-30) mmol/L BUN 50 H (9-20) mg/dL Creatinine 1.45 H (0.66-1.25) mg/dL Glucose 156 H (74-99) mg/dL Calcium 8.4 (8.4-10.2) mg/dL Adrenal panel 03/19/19 Range/Units 10:10 Sodium 143 (137-145) mmol/L Potassium 4.8 (3.5-5.1) mmol/L Chloride 113 H (98-107) mmol/L Carbon Dioxide 21 L (22-30) mmol/L BUN 50 H (9-20) mg/dL Creatinine 1.45 H (0.66-1.25) mg/dL Glucose 156 H (74-99) mg/dL Calcium 8.4 (8.4-10.2) mg/dL Total Bilirubin 0.3 (0.2-1.3) mg/dL AST 70 H (17-59) U/L ALT 71 (21-72) U/L Alkaline Phosphatase 527 H (38-126) U/L Total Protein 5.4 L (6.3-8.2) g/dL Albumin 2.9 L (3.5-5.0) g/dL Assessment and Plan (1) Chronic cholecystitis Narrative/Plan: Patient with ultrasound showing thickened gallbladder wall with sludge. The patient is asymptomatic with no complaints of right upper quadrant pain at this time. His exam fails to reveal any tenderness as well. Of more concern is the patient's elevated alkaline phosphatase and the liver lesions reportedly seen on recent CAT scan. Will obtain CAT scan report and recent labs from [facility]. Possible oncology or GI evaluation may be required following that. No surgical intervention planned at this time given his lack of symptoms and the additional findings on CAT scan. Current Visit: Yes Status: Acute Code(s): K81.1 - CHRONIC CHOLECYSTITIS SNOMED Code(s): 48660760
[2019-03-20 11:23] LABS: Albumin 2.3 g/dL (3.5-5.0); Calcium 7.7 mg/dL (8.4-10.2); Total Bilirubin 0.2 mg/dL (0.2-1.3); Total Protein 4.6 g/dL (6.3-8.2)
[2019-03-20 11:29] LABS: Basophils % (A) 0 %; Eosinophils % (A) 0 %; HCT 26.7 % (39.0-53.0); Hypochromasia Moderate; Lymphocytes # (A) 0.5 k/uL (1.0-4.8); Lymphocytes % (A) 8 %; MCH 33.5 pg (25.0-35.0); MCHC 30.8 g/dL (31.0-37.0); MCV 108.7 fL (80.0-100.0); Macrocytosis Marked; Mean Platelet Volume 8.8; Monocytes # (A) 0.3 k/uL (0-1.0); Monocytes % (A) 6 %; Neutrophils # (A) 5.1 k/uL (1.3-7.7); Neutrophils % (A) 86 %; RBC 2.46 m/uL (4.30-5.90); RDW 15.8 % (11.5-15.5); WBC 5.9 k/uL (3.8-10.6)
[2019-03-20 11:42] LABS: Glucose,Whole Blood 140 mg/dL (75-99)
[2019-03-20 11:59] LABS: HGB 8.2 gm/dL (13.0-17.5)
[2019-03-20 12:00] LABS: Platelet Count 61 k/uL (150-450)
[2019-03-20 17:21] LABS: Glucose,Whole Blood 117 mg/dL (75-99)
--- NOTE | 2019-03-20 18:34 | PN ---
PROGRESS NOTE DATE OF SERVICE: 03/20/2019 This 78-year-old gentleman admitted with significant abdominal pain and dysuria, also had possible UTI. The patient had urinary difficulties for which the catheter was inserted recently. The patient was also evaluated in [facility]. The patient also was found to have hydropic gallbladder. The possibility of chronic cholecystitis considered but however the patient also had hepatic lesions and possibly MRI has been recommended by Dr. Mcnulty on the present admission. The patient's liver enzymes especially alkaline phosphatase is worsening at this point. PAST MEDICAL HISTORY: Past medical history reviewed. REVIEW OF SYSTEMS: CARDIOVASCULAR SYSTEM: No angina or palpitations. RESPIRATION as mentioned earlier. GASTROINTESTINAL: As mentioned earlier. as mentioned earlier. NERVOUS SYSTEM: No numbness or weakness. MEDICATION: 1. Tylenol 650 q.6 p.r.n. 2. Eunice 5 mg q.6h p.r.n. 3. Xanax 0.5 t.i.d. 4. Lipitor 20 mg q.h.s. 5. Rocaltrol 0.25 mg daily. 6. Rocephin 1 g daily. 7. Vitamin D3 2000 daily. 8. Vitamin B12 500 mg p.o. daily. 9. Depakote ER 1000 mg p.o. daily. 10.Iron sulfate 320 mg p.o. daily. 11.Heparin subcu b.i.d. 12.NovoLog a.c. and q.h.s. 13.NovoLog scale another 5 units t.i.d. 14.Lopressor 25 mg p.o. b.i.d. 15.Narcan 0.2 q.2h p.r.n. 16.MiraLAX 17 g p.o. daily. 17.Senokot 8.6 q.h.s. p.r.n. 18.Flomax 0.4 daily. PHYSICAL EXAM: Patient is alert, oriented x3, pulse 54, blood pressure 130/72, respiration 20, temperature 97.4, pulse ox 99% on room air. HEENT: Conjunctivae normal. Oral mucosa moist. NECK is no jugular venous distention. No carotid bruit. No lymph node enlargement. CARDIOVASCULAR: S1, S2 muffled. RESPIRATION: Breath sounds diminished in the bases. No rhonchi. No crackles. ABDOMEN: Soft. Mild diffuse distention. Nontender. No mass palpable. No rigidity. No ascites. Bowel sounds present. LEGS: No edema and no swelling. NERVOUS SYSTEM: Higher functions as mentioned earlier. Moves all 4 limbs. No focal motor or sensory deficits. LYMPHATICS: No lymph nodes palpable in the neck, axillae or groin. SKIN: No ulcer, rash or bleeding. JOINTS: No active deforming arthropathy. LAB STUDIES: WBC 5.2. Hemoglobin is 8.2, sodium 141, potassium 4, creatinine is 1.43. AST is 167, ALT is 127, alkaline phosphatase is 712 and albumin is 2.3. UA noted. ASSESSMENT: 1. Acute lower abdominal pain with acute urinary tract infection for evaluation, present on admission. 2. Multiple hepatic lesions, rule out malignancy. 3. Possible hydropic gallbladder with gallbladder with sludge. 4. Increased AST, ALT, as well as alkaline phosphatase. Rule out extrahepatic biliary obstruction. 5. Increased creatinine with possible acute renal failure. 6. Mild pancytopenia of undetermined etiology. 7. Diabetes type 2. 8. Hypertension. 9. Hyperlipidemia. 10.History of myocardial infarction history. 11.History of mental handicap. 12.History of bladder cancer. 13.History of coronary artery disease/ stent. 14.History of nicotine dependence. 15.Severe protein calorie malnutrition with BMI of 18.8. 16.FULL CODE. RECOMMENDATIONS AND DISCUSSION: In this 78-year-old woman who presented with multiple complex medical issues, we will monitor the patient closely. Continue the current medications, management and symptomatic treatment. I recommend repeat labs. Surgical evaluation appreciated. I would recommend MRI and closely follow with Urology. The creatinine is stable at this time but however, exact etiology of the multiple symptomatology and multiple lab abnormalities are unknown at this time. The possibility of extrahepatic obstruction versus intrahepatic lesion to be considered. See orders for details. Further recommendations to follow. Symptomatic treatment also provided. Prognosis guarded. We will add antibiotics. Await cultures. MMODL / IJN: [id number] /
--- NOTE | 2019-03-20 19:24 | P.CONS ---
History of Present Illness - Reason for Consult Consult date: 03/20/19 Hepatic mass Requesting physician: Isis Sloan - Chief Complaint Abdominal pain, dysuria - History of Present Illness 78-year-old with medical history significant for diabetes, hypertension, hyperlipidemia, myocardial infarction, developmental delay, coronary artery disease with prior stenting, bladder cancer diagnosed in 2013 with urinary retention who presented to the hospital with complaints of abdominal pain. The patient had reported lower abdominal pain with dysuria who presented for further evaluation. Consult for gastroenterology to to hepatic mass. The patient did have a computed tomography scan at [facility] with findings of a 5 cm mass in the liver adjacent to the thierno hepatis. Extremities was noted on this exam as well as a hydropic appearing gallbladder. Patient denies any prior history of liver disease. Does not believe any family history of liver disease. No prior history of viral hepatitis. Denies any history of heavy alcohol abuse. Denies any signs or symptoms of jaundice or cold colorectal colored urine. The patient has been seen by the surgical service with MRI of the abdomen pending as well as tumor markers. Review of Systems REVIEW OF SYSTEMS: CONSTITUTIONAL: Denies any fevers, chills, weight change or fatigue. CARDIOVASCULAR: Denies any chest pain, palpitations high or low blood pressures RESPIRATORY: Denies any shortness of breath, hemoptysis or cough. GENITOURINARY: Romero in place with reports of hematuria and dysuria. MUSCULOSKELETAL: No weakness reported. SKIN: Denies any new rashes or lesions, jaundice or pallor. PSYCHIATRIC: Denies any depression or anxiety. NEUROLOGY: Denies headache, denies any new focal deficits, history of developmental delay. EARS/NOSE/THROAT: No recent hearing change, congestion, nasal discharge or sore throat. EYES: No pain in eyes, discharge or change in vision. GASTROINTESTINAL: As per HPI. Past Medical History Past Medical History: Cancer, Diabetes Mellitus, Hyperlipidemia, Hypertension, Myocardial Infarction ([place]) Additional Past Medical History / Comment(s): Mental handicap-approx capacity at age 9.,bladder Ca approx 2013,elevated potassium Last Myocardial Infarction Date:: 2009 History of Any Multi-Drug Resistant Organisms: None Reported Past Surgical History: Heart Catheterization With Stent Additional Past Surgical History / Comment(s): bladder tumors removed; Cataract R eye Past Anesthesia/Blood Transfusion Reactions: No Reported Reaction Date of Last Stent Placement:: 2009 Past Psychological History: No Psychological Hx Reported Additional Psychological History / Comment(s): mentally handicapped Smoking Status: Former smoker Past Alcohol Use History: None Reported Additional Past Alcohol Use History / Comment(s): quit smoking 2009,1ppd Past Drug Use History: None Reported - Past Family History Father Family Medical History: Cancer Additional Family Medical History / Comment(s): lung Mother Family Medical History: COPD Additional Family Medical History / Comment(s): bowel surgeries Medications and Allergies Home Medications Medication Instructions Recorded Confirmed Type Calcitriol [Rocaltrol] 0.25 mcg PO DAILY 12/29/16 03/19/19 History Cholecalciferol [Vitamin D3] 2,000 unit PO DAILY 12/29/16 03/19/19 History Cyanocobalamin [Vitamin B-12] 500 mcg PO DAILY 12/29/16 03/19/19 History Ferrous Sulfate [Feosol] 325 mg PO BID 12/29/16 03/19/19 History Metoprolol Tartrate [Lopressor] 25 mg PO BID 12/29/16 03/19/19 History Simvastatin [Zocor] 40 mg PO HS 12/29/16 03/19/19 History Tamsulosin [Flomax] 0.4 mg PO DAILY 12/29/16 03/19/19 History Acetaminophen Tab [Tylenol Tab] 650 mg PO Q6H PRN 03/19/19 03/19/19 History Divalproex Sodium [Divalproex 1,000 mg PO DAILY 03/19/19 03/19/19 History Sodium ER] Insulin Aspart [NovoLOG Flexpen] 5 units SQ AC-TID 03/19/19 03/19/19 History Polyethylene Glycol 3350 [Miralax] 17 gm PO DAILY 03/19/19 03/19/19 History Sennosides [Senna] 8.6 mg PO HS PRN 03/19/19 03/19/19 History Allergies Allergy/AdvReac Type Severity Reaction Status Date / Time lithium Allergy Unknown Verified 03/19/19 10:42 Physical Exam Vitals: Vital Signs Temp Pulse Resp BP Pulse Ox 03/20/19 14:24 54 L 03/20/19 12:08 97.5 F L 54 L 20 138/78 99 03/20/19 08:30 52 L 03/20/19 07:57 98.2 F 52 L 20 154/69 91 L 03/19/19 22:09 97.3 F L 51 L 16 132/56 96 Intake and Output 03/20/19 03/20/19 03/20/19 06:59 14:59 22:59 Output Total 600 200 600 Balance -600 -200 -600 Output: Urine 600 600 Post Void Residual 200 Other: # Voids 2 1 1 Weight 51.256 kg On physical examination, patient appears comfortable in no apparent distress. HEAD: Normocephalic, atraumatic. EYES: No scleral icterus. No conjunctival injection. MOUTH: No lesions, tongue midline. NECK: Trachea midline, no gross abnormalities. CHEST: Decreased air entry bilaterally. HEART: S1-S2 appreciated. ABDOMEN: Soft, obese. Bowel sounds are positive. No organomegaly. No guarding or rigidity. EXTREMITIES: No pedal edema. SKIN: No rashes, no jaundice. NEUROLOGIC: Alert and oriented to person and place. No focal deficits. Results CBC & Chem 7: 03/20/19 10:46 03/20/19 10:46 Labs: Abnormal Lab Results - Last 24 Hours (Table) 03/19/19 03/20/19 03/20/19 Range/Units 20:08 07:05 10:46 RBC 2.46 L (4.30-5.90) m/uL Hgb 8.2 L D (13.0-17.5) gm/dL Hct 26.7 L (39.0-53.0) % MCV 108.7 H (80.0-100.0) fL MCHC 30.8 L (31.0-37.0) g/dL RDW 15.8 H (11.5-15.5) % Plt Count 61 L (150-450) k/uL Lymphocytes # 0.5 L (1.0-4.8) k/uL Macrocytosis Marked A Chloride (98-107) mmol/L Carbon Dioxide (22-30) mmol/L BUN (9-20) mg/dL Creatinine (0.66-1.25) mg/dL Glucose (74-99) mg/dL POC Glucose (mg/dL) 250 H 146 H (75-99) mg/dL Calcium (8.4-10.2) mg/dL AST (17-59) U/L ALT (21-72) U/L Alkaline Phosphatase (38-126) U/L Total Protein (6.3-8.2) g/dL Albumin (3.5-5.0) g/dL 03/20/19 03/20/19 03/20/19 Range/Units 10:46 11:31 17:08 RBC (4.30-5.90) m/uL Hgb (13.0-17.5) gm/dL Hct (39.0-53.0) % MCV (80.0-100.0) fL MCHC (31.0-37.0) g/dL RDW (11.5-15.5) % Plt Count (150-450) k/uL Lymphocytes # (1.0-4.8) k/uL Macrocytosis Chloride 114 H (98-107) mmol/L Carbon Dioxide 20 L (22-30) mmol/L BUN 47 H (9-20) mg/dL Creatinine 1.43 H (0.66-1.25) mg/dL Glucose 131 H (74-99) mg/dL POC Glucose (mg/dL) 140 H 117 H (75-99) mg/dL Calcium 7.7 L (8.4-10.2) mg/dL AST 167 H (17-59) U/L ALT 127 H (21-72) U/L Alkaline Phosphatase 712 H (38-126) U/L Total Protein 4.6 L (6.3-8.2) g/dL Albumin 2.3 L (3.5-5.0) g/dL Microbiology - Last 24 Hours (Table) 03/19/19 10:10 Blood Culture Gram Stain - Preliminary Blood Blood Culture - Preliminary Gram Neg Bacilli 03/19/19 10:10 Urine Culture - Final Urine,Voided 03/19/19 10:10 Blood Culture - Final Blood US - abdomen: report reviewed (Ultrasound of the gallbladder with findings of mild ascites, sludge-filled hydropic gallbladder with thickened gallbladder wall.) Assessment and Plan (1) Liver mass Narrative/Plan: 78-year-old with multiple medical comorbidities. Previously underwent a com puted tomography scan of the abdomen with findings of a possible liver mass in the area adjacent to the thierno hepatis. Ultrasound on current admission significant for mild ascites as well as a sludge-filled hydropic gallbladder with thickened gallbladder wall. With liver enzymes significant for total bilirubin 0.2, alkaline phosphatase of 117, AST 167, and ALT 127. Current Visit: Yes Status: Acute Code(s): R16.0 - HEPATOMEGALY, NOT ELSEWHERE CLASSIFIED SNOMED Code(s): 336698969 (2) Chronic cholecystitis Current Visit: Yes Status: Acute Code(s): K81.1 - CHRONIC CHOLECYSTITIS SNOMED Code(s): 60709823 Plan: Supportive care Appreciate recommendations from surgical service MRI of the abdomen has been ordered AFP has been ordered Continue to follow CBC, CMP Continue antibiotic therapy Thank you for allowing us to participate in the care of the patient we will continue to follow
[2019-03-20 21:47] LABS: Glucose,Whole Blood 141 mg/dL (75-99)
[2019-03-20] MEDS: ATORVASTATIN 20 MG TAB PO SCH (21:59)
[2019-03-21 07:06] LABS: Glucose,Whole Blood 120 mg/dL (75-99)
[2019-03-21] MEDS: INSULIN ASPART (NovoLOG) 100 UNIT/ML VIAL SQ SCH ×7 (09:01→20:52)
[2019-03-21] MEDS: CHOLECALCIFEROL 1,000 UNIT TAB PO SCH (09:06)
[2019-03-21] MEDS: CYANOCOBALAMIN 500 MCG TAB PO SCH (09:07)
[2019-03-21] MEDS: METOPROLOL TARTRATE 25 MG TAB PO SCH (09:07)
[2019-03-21] MEDS: TAMSULOSIN 0.4 MG CAP.ER.24H PO SCH (09:07)
[2019-03-21] MEDS: CALCITRIOL 0.25 MCG CAP PO SCH (09:09)
[2019-03-21] MEDS: POLYETHYLENE GLYCOL 3350 17 GM POWD.PACK PO SCH (09:09)
[2019-03-21] MEDS: DIVALPROEX ER 500 MG TAB.ER.24H PO SCH (09:09)
[2019-03-21] MEDS: HEPARIN SODIUM,PORCINE 5,000 UNIT/ML 1 ML VIAL SQ SCH ×2 (09:12→20:47)
[2019-03-21] MEDS: FERROUS SULFATE 325 MG TAB PO SCH ×2 (09:13→20:47)
[2019-03-21 09:45] LABS: Alpha Fetoprotein, Tumor Mkr 4.4 ng/mL (0.0-7.9)
[2019-03-21 09:50] LABS: Basophils % (A) 0 %; Eosinophils # (A) 0.1 k/uL (0-0.7); Eosinophils % (A) 1 %; HCT 31.4 % (39.0-53.0); HGB 9.1 gm/dL (13.0-17.5); Hypochromasia Marked; Lymphocytes # (A) 0.4 k/uL (1.0-4.8); Lymphocytes % (A) 11 %; MCH 31.4 pg (25.0-35.0); MCV 108.2 fL (80.0-100.0); Macrocytosis Marked; Mean Platelet Volume 8.2; Monocytes # (A) 0.2 k/uL (0-1.0); Monocytes % (A) 4 %; Neutrophils # (A) 3.3 k/uL (1.3-7.7); Neutrophils % (A) 82 %; RDW 15.4 % (11.5-15.5)
[2019-03-21 09:52] LABS: Albumin 2.8 g/dL (3.5-5.0); Calcium 8.2 mg/dL (8.4-10.2); Potassium 4.7 mmol/L (3.5-5.1); Total Bilirubin 0.8 mg/dL (0.2-1.3); Total Protein 5.4 g/dL (6.3-8.2)
[2019-03-21 10:02] LABS: Hemoglobin A1C 6.3 % (4.0-6.0)
[2019-03-21 10:06] LABS: Platelet Count 71 k/uL (150-450)
[2019-03-21 11:45] LABS: Hepatitis A Antibody IgM Non-Reactive (Non-Reactive); Hepatitis B Core IgM Non-Reactive (Non-Reactive); Hepatitis B Surface Antigen Non-Reactive (Non-Reactive); Hepatitis C IgG Antibody Non-Reactive (Non-Reactive)
[2019-03-21 11:46] LABS: Glucose,Whole Blood 136 mg/dL (75-99)
--- NOTE | 2019-03-21 14:09 | P.PN ---
Subjective Progress Note Date: 03/21/19 CHIEF COMPLAINT: Abdominal pain HISTORY OF PRESENT ILLNESS: Patient examined at the bedside this morning. Patient denies abdominal pain. Denies nausea or vomiting. He appears slightly confused. Hemoglobin 9.1, up from 8.2 yesterday. Total bilirubin 0.8. AST 329. ALT 2015. Alkaline phosphatase 1283. Hepatitis screen nonreactive. PHYSICAL EXAM: VITAL SIGNS: Currently stable. GENERAL: Well-developed in no acute distress. HEENT: No sclera icterus. Extraocular movements grossly intact. Moist buccal mucosa. Head is atraumatic, normocephalic. Hears conversational speech. No nasal drainage. NECK: Supple without lymphadenopathy. CHEST: Non-labored respirations and equal bilateral excursions. CARDIOVASCULAR: Regular rate with regular rhythm. Palpable 2+ radial pulses. ABDOMEN: Soft. Nondistended. Nontender. Positive bowel sounds. MUSCULOSKELETAL: No clubbing, cyanosis or edema. NEUROLOGIC: No focal or lateralizing signs. Cranial nerves II through XII grossly intact. PSYCH: Appropriate affect. Awake and alert. Confused. SKIN: Well perfused. Good skin turgor. ASSESSMENT: 1. Chronic cholecystitis, US shows thickened gallbladder with sludge, patient asymptomatic 2. Transaminitis 3. Liver mass, 5cm, visualized on recent computed tomography scan PLAN: 1. Continue diet as tolerated 2. Patient scheduled for MRI of the liver today 3. No surgical intervention recommended at this time 4. GI services is following patient also 5. Further recommendations pending MRI results and patient course Nurse practitioner note has been reviewed by physician. Signing provider agrees with the documented findings, assessment, and plan of care. Objective - Vital Signs Vital signs: Vital Signs Temp 97.4 F L 03/21/19 05:00 Pulse 52 L 03/21/19 08:00 Resp 16 03/21/19 08:00 BP 153/63 03/21/19 05:00 Pulse Ox 98 03/21/19 05:00 Intake & Output 03/20/19 03/21/19 03/21/19 18:59 06:59 18:59 Intake Total 1240 Output Total 800 Balance -800 1240 Weight 51.256 kg Intake: Intake, IV Titration 650 Amount Sodium Chloride 0.9% 1, 650 000 ml @ 75 mls/hr IV . [id number] [facility] Rx#:[id number] Oral 590 Output: Urine 600 Post Void Residual 200 Other: Voiding Method Toilet Toilet # Voids 1 1 # Bowel Movements 1 - Labs CBC & Chem 7: 03/21/19 08:57 03/21/19 08:57 Labs: Abnormal Lab Results - Last 24 Hours (Table) 03/20/19 03/20/19 03/20/19 Range/Units 10:46 17:08 21:45 RBC (4.30-5.90) m/uL Hgb (13.0-17.5) gm/dL Hct (39.0-53.0) % MCV (80.0-100.0) fL MCHC (31.0-37.0) g/dL Plt Count (150-450) k/uL Lymphocytes # (1.0-4.8) k/uL Macrocytosis Chloride (98-107) mmol/L BUN (9-20) mg/dL Creatinine (0.66-1.25) mg/dL Glucose (74-99) mg/dL POC Glucose (mg/dL) 117 H 141 H (75-99) mg/dL Hemoglobin A1c 6.3 H (4.0-6.0) % Calcium (8.4-10.2) mg/dL AST (17-59) U/L ALT (21-72) U/L Alkaline Phosphatase (38-126) U/L Total Protein (6.3-8.2) g/dL Albumin (3.5-5.0) g/dL 03/21/19 03/21/19 03/21/19 Range/Units 07:02 08:57 08:57 RBC 2.90 L (4.30-5.90) m/uL Hgb 9.1 L (13.0-17.5) gm/dL Hct 31.4 L (39.0-53.0) % MCV 108.2 H (80.0-100.0) fL MCHC 29.0 L (31.0-37.0) g/dL Plt Count 71 L (150-450) k/uL Lymphocytes # 0.4 L (1.0-4.8) k/uL Macrocytosis Marked A Chloride 113 H (98-107) mmol/L BUN 43 H (9-20) mg/dL Creatinine 1.44 H (0.66-1.25) mg/dL Glucose 154 H (74-99) mg/dL POC Glucose (mg/dL) 120 H (75-99) mg/dL Hemoglobin A1c (4.0-6.0) % Calcium 8.2 L (8.4-10.2) mg/dL AST 329 H (17-59) U/L ALT 215 H (21-72) U/L Alkaline Phosphatase 1283 H (38-126) U/L Total Protein 5.4 L (6.3-8.2) g/dL Albumin 2.8 L (3.5-5.0) g/dL 03/21/19 Range/Units 11:44 RBC (4.30-5.90) m/uL Hgb (13.0-17.5) gm/dL Hct (39.0-53.0) % MCV (80.0-100.0) fL MCHC (31.0-37.0) g/dL Plt Count (150-450) k/uL Lymphocytes # (1.0-4.8) k/uL Macrocytosis Chloride (98-107) mmol/L BUN (9-20) mg/dL Creatinine (0.66-1.25) mg/dL Glucose (74-99) mg/dL POC Glucose (mg/dL) 136 H (75-99) mg/dL Hemoglobin A1c (4.0-6.0) % Calcium (8.4-10.2) mg/dL AST (17-59) U/L ALT (21-72) U/L Alkaline Phosphatase (38-126) U/L Total Protein (6.3-8.2) g/dL Albumin (3.5-5.0) g/dL Microbiology - Last 24 Hours (Table) 03/19/19 10:10 Blood Culture Gram Stain - Final Blood Blood Culture - Final Klebsiella oxytoca 03/19/19 10:10 Urine Culture - Final Urine,Voided Assessment and Plan (1) Chronic cholecystitis Current Visit: Yes Status: Acute Code(s): K81.1 - CHRONIC CHOLECYSTITIS SNOMED Code(s): 60941886 (2) Elevated alkaline phosphatase level Current Visit: Yes Status: Acute Code(s): R74.8 - ABNORMAL LEVELS OF OTHER SERUM ENZYMES SNOMED Code(s): 083619255 (3) Liver mass Current Visit: Yes Status: Acute Code(s): R16.0 - HEPATOMEGALY, NOT ELSEWHERE CLASSIFIED SNOMED Code(s): 753590655
--- NOTE | 2019-03-21 16:20 | P.PN ---
Subjective 78-year-old male came in with a right upper quadrant abdominal pain patient was evaluated by general surgery patient appears to have chronic cholecystitis, patient later found to have elevated liver enzymes with elevated bilirubin which continue to go up. I'll stop his statin, gastro-oncology evaluated the patient as well we'll repeat liver enzymes tomorrow MRCP is being obtained at this time there is a possibility of liver mass and the there may be an obstruction of the common bile duct as well. Patient probably has hydropic gallbladder. Patient appears to have some loss of appetite patient probably has ascites although doesn't appear to have cirrhosis at this time, we will await for the MRI results. Constitutional: Denied any fatigue denied any fever. Cardio vascular: denied any chest pain, palpitations Gastrointestinal denied any nausea vomiting Pulmonary: Denied any shortness of breath cough Neurologic denied any new focal deficits All inpatient medications were reviewed and appropriate changes in these medications as dictated in the interval history and assessment and plan. Objective - Vital Signs Vital signs: Vital Signs Temp 97.4 F L 03/21/19 12:15 Pulse 44 L 03/21/19 12:15 Resp 20 03/21/19 12:15 BP 154/76 03/21/19 12:15 Pulse Ox 92 L 03/21/19 12:15 Intake & Output 03/20/19 03/21/19 03/21/19 18:59 06:59 18:59 Intake Total 1240 Output Total 800 Balance -800 1240 Weight 51.256 kg Intake: Intake, IV Titration 650 Amount Sodium Chloride 0.9% 1, 650 000 ml @ 75 mls/hr IV . [id number] [facility] Rx#:[id number] Oral 590 Output: Urine 600 Post Void Residual 200 Other: Voiding Method Toilet Toilet # Voids 1 1 3 # Bowel Movements 1 1 - Exam PHYSICAL EXAMINATION: GENERAL: The patient is alert and oriented x3, not in any acute distress. Well developed, well nourished. HEENT: Pupils are round and equally reacting to light. EOMI. No scleral icterus. No conjunctival pallor. Normocephalic, atraumatic. No pharyngeal erythema. No thyromegaly. CARDIOVASCULAR: S1 and S2 present. No murmurs, rubs, or gallops. PULMONARY: Chest is clear to auscultation, no wheezing or crackles. ABDOMEN: Soft, nontender, abdomen is bit distended with gas as well as ascites, normoactive bowel sounds. No palpable organomegaly. MUSCULOSKELETAL: No joint swelling or deformity. EXTREMITIES: No cyanosis, clubbing, or pedal edema. NEUROLOGICAL: Gross neurological examination did not reveal any focal deficits. SKIN: No rashes. - Labs CBC & Chem 7: 03/21/19 08:57 03/21/19 08:57 Labs: Abnormal Lab Results - Last 24 Hours (Table) 03/20/19 03/20/19 03/20/19 Range/Units 10:46 17:08 21:45 RBC (4.30-5.90) m/uL Hgb (13.0-17.5) gm/dL Hct (39.0-53.0) % MCV (80.0-100.0) fL MCHC (31.0-37.0) g/dL Plt Count (150-450) k/uL Lymphocytes # (1.0-4.8) k/uL Macrocytosis Chloride (98-107) mmol/L BUN (9-20) mg/dL Creatinine (0.66-1.25) mg/dL Glucose (74-99) mg/dL POC Glucose (mg/dL) 117 H 141 H (75-99) mg/dL Hemoglobin A1c 6.3 H (4.0-6.0) % Calcium (8.4-10.2) mg/dL AST (17-59) U/L ALT (21-72) U/L Alkaline Phosphatase (38-126) U/L Total Protein (6.3-8.2) g/dL Albumin (3.5-5.0) g/dL 03/21/19 03/21/19 03/21/19 Range/Units 07:02 08:57 08:57 RBC 2.90 L (4.30-5.90) m/uL Hgb 9.1 L (13.0-17.5) gm/dL Hct 31.4 L (39.0-53.0) % MCV 108.2 H (80.0-100.0) fL MCHC 29.0 L (31.0-37.0) g/dL Plt Count 71 L (150-450) k/uL Lymphocytes # 0.4 L (1.0-4.8) k/uL Macrocytosis Marked A Chloride 113 H (98-107) mmol/L BUN 43 H (9-20) mg/dL Creatinine 1.44 H (0.66-1.25) mg/dL Glucose 154 H (74-99) mg/dL POC Glucose (mg/dL) 120 H (75-99) mg/dL Hemoglobin A1c (4.0-6.0) % Calcium 8.2 L (8.4-10.2) mg/dL AST 329 H (17-59) U/L ALT 215 H (21-72) U/L Alkaline Phosphatase 1283 H (38-126) U/L Total Protein 5.4 L (6.3-8.2) g/dL Albumin 2.8 L (3.5-5.0) g/dL 03/21/19 Range/Units 11:44 RBC (4.30-5.90) m/uL Hgb (13.0-17.5) gm/dL Hct (39.0-53.0) % MCV (80.0-100.0) fL MCHC (31.0-37.0) g/dL Plt Count (150-450) k/uL Lymphocytes # (1.0-4.8) k/uL Macrocytosis Chloride (98-107) mmol/L BUN (9-20) mg/dL Creatinine (0.66-1.25) mg/dL Glucose (74-99) mg/dL POC Glucose (mg/dL) 136 H (75-99) mg/dL Hemoglobin A1c (4.0-6.0) % Calcium (8.4-10.2) mg/dL AST (17-59) U/L ALT (21-72) U/L Alkaline Phosphatase (38-126) U/L Total Protein (6.3-8.2) g/dL Albumin (3.5-5.0) g/dL Microbiology - Last 24 Hours (Table) 03/19/19 10:10 Blood Culture Gram Stain - Final Blood Blood Culture - Final Klebsiella oxytoca Assessment and Plan Plan: -Abdominal pain possibly of chronic cholecystitis awaiting MRI results -Elevated liver enzymes be looking for obstruction of the biliary tract with elevated bilirubin and significant elevation of alkaline phosphatase awaiting MRI results and patient probably has a liver lesion which can be better assessed with MRI -Possible urinary tract infection with hematuria on admission, continue with Rocephin at this time urine cultures are positive for Klebsiella oxytoca which is pansensitive patient will need 2 more days of antibiotic -Renal failure mostly appears to be chronic kidney disease as there is no response to IV fluids patient is presently hyperchloremic will increase him to drink water and will monitor kidney function I cannot state she has chronic kidney disease as I do not know his previous baseline creatinine -Type 2 diabetes mellitus, continue with present regimen monitor CBG -hypertension -hyperlipidemia -
[2019-03-21 17:04] LABS: Glucose,Whole Blood 104 mg/dL (75-99)
--- NOTE | 2019-03-21 17:18 | PN ---
PROGRESS NOTE DATE OF DICTATION: 03/21/2019 REASON FOR CONSULTATION: Abdominal pain. HISTORY OF PRESENT ILLNESS: The patient is a 78-year-old pleasant white male admitted to the hospital with lower abdominal pain, and he was seen by Dr. Patel on consultation yesterday. Apparently he did have a CT of the abdomen and pelvis done at [facility] a few days ago and was noted to have a 5 cm mass in the liver adjacent to the thierno hepatis. To well define this lesion, he underwent an MRI of the liver today, results of which are still not available at the time of this dictation. The patient is a poor historian. He denies any complaints today. PHYSICAL EXAMINATION: He appears comfortable. No apparent distress. Vital signs are stable. Blood pressure is 163/63, pulse rate 50, temperature 97.8. HEENT examination unremarkable. Conjunctivae pink. Sclerae anicteric. Oral cavity no lesions. Neck: No JVD or lymph node enlargement. Chest was clear to auscultation. Heart: Regular rate and rhythm. Abdomen is soft. Bowel sounds are positive. No organomegaly. Extremities: No pedal edema. Skin: No rashes. Neurologic: Alert and oriented x3. No focal deficits. LABS: Labs from today: WBC 4, hemoglobin 9.1, platelets 71,000. AST is 329, ALT is 215, alkaline phosphatase is 1283. Bilirubin is 0.8. Hepatitis serologies for A, B and C negative. Alpha fetoprotein is 4.4. IMPRESSION: 1. Elevated serum transaminases with significant elevation of alkaline phosphatase that has been progressively getting worse since hospitalization. Hepatitis serologies for A, B and C are negative. CT of the abdomen at [facility] a few days ago showed a 5 cm lesion in the liver adjacent to the thierno hepatis. The patient just returned from MRI of the liver, results of which are still pending at the time of this dictation. 2. Mild anemia and pancytopenia, probably related to chronic underlying liver disease. Alpha fetoprotein was reported as normal. RECOMMENDATIONS: Await results of MRI of the liver; based on that, will consider ultrasound-guided liver biopsy. For now, continue with symptomatic and supportive care. We will follow with you closely during this hospital stay. Thank you for this consultation. MMODL / IJN: [id number] /
[2019-03-21] MEDS: SODIUM CHLORIDE 0.9% 1,000 ML IV SCH (18:25)
--- NOTE | 2019-03-21 19:44 | MR ---
EXAMINATION TYPE: MR liver wo/w con DATE OF EXAM: 03/21/2019 COMPARISON: None HISTORY: Liver mass CONTRAST: Standard multiplanar, multisequence MRI departmental protocol utilizing 5 mL intravenous Gadavist landy olinium contrast. FINDINGS: Liver shows no focal defect. Bile ducts are not dilated. There is 4.4 cm mildly dilated gallbladder. I see no gallbladder wall thickening. Gallbladder measures 4.3 x 9.2 cm. There are bilateral pleural effusions and basilar atelectasis. There is mild abdominal ascites. There is normal flow-void in the portal vein. There is no evidence of portal vein thrombosis. The bile isrrael ts do not appear dilated. There is no evidence of pancreatic mass. Spleen appears normal. Kidneys show satisfactory contrast op acification. There is no hydronephrosis. There is no adrenal mass. IMPRESSION: Pleural effusions and basilar pulmonary infiltrates and atelectasis. Mild ascites. There is no discre te liver mass. Mildly dilated gallbladder suggestive of gallbladder dysfunction.
[2019-03-21 20:54] LABS: Glucose,Whole Blood 76 mg/dL (75-99)
[2019-03-22 06:54] LABS: Glucose,Whole Blood 172 mg/dL (75-99)
[2019-03-22] MEDS: DIVALPROEX ER 500 MG TAB.ER.24H PO SCH (08:01)
[2019-03-22] MEDS: CALCITRIOL 0.25 MCG CAP PO SCH (08:01)
[2019-03-22] MEDS: FERROUS SULFATE 325 MG TAB PO SCH ×2 (08:01→20:58)
[2019-03-22] MEDS: HEPARIN SODIUM,PORCINE 5,000 UNIT/ML 1 ML VIAL SQ SCH ×2 (08:01→20:58)
[2019-03-22] MEDS: TAMSULOSIN 0.4 MG CAP.ER.24H PO SCH (08:01)
[2019-03-22] MEDS: CHOLECALCIFEROL 1,000 UNIT TAB PO SCH (08:01)
[2019-03-22] MEDS: POLYETHYLENE GLYCOL 3350 17 GM POWD.PACK PO SCH (08:01)
[2019-03-22] MEDS: CYANOCOBALAMIN 500 MCG TAB PO SCH (08:01)
[2019-03-22] MEDS: INSULIN ASPART (NovoLOG) 100 UNIT/ML VIAL SQ SCH ×7 (08:02→20:58)
[2019-03-22 09:09] LABS: Albumin 2.7 g/dL (3.5-5.0); Calcium 8.3 mg/dL (8.4-10.2); Potassium 4.6 mmol/L (3.5-5.1); Total Protein 5.2 g/dL (6.3-8.2)
[2019-03-22 09:31] LABS: Anisocytosis Slight; Basophils % (A) 0 %; Eosinophils % (A) 1 %; HCT 33.3 % (39.0-53.0); HGB 9.9 gm/dL (13.0-17.5); Hypochromasia Marked; Lymphocytes # (A) 0.5 k/uL (1.0-4.8); Lymphocytes % (A) 14 %; MCH 33.1 pg (25.0-35.0); MCHC 29.8 g/dL (31.0-37.0); MCV 111.1 fL (80.0-100.0); Macrocytosis Marked; Mean Platelet Volume 9.2; Monocytes # (A) 0.2 k/uL (0-1.0); Monocytes % (A) 5 %; Neutrophils # (A) 2.9 k/uL (1.3-7.7); Neutrophils % (A) 78 %; RBC 2.99 m/uL (4.30-5.90); RDW 16.1 % (11.5-15.5); WBC 3.7 k/uL (3.8-10.6)
[2019-03-22 09:41] LABS: Platelet Count 91 k/uL (150-450)
--- NOTE | 2019-03-22 10:02 | P.PN ---
Subjective Progress Note Date: 03/22/19 Principal diagnosis: Abdominal pain 78 showed gentleman that history of cognitive delay. Brother at bedside assisting with history. MRI liver yesterday reported no liver mass, no abnormalities of biliary tree. History of recent abdominal imaging at [facility] noted to have a 5 cm mass in the liver adjacent to the thierno hepatis. General surgery following. Today white count 3.7. Hemoglobin 9.9. LFTs increased Total bilirubin 1.0. AST 384. ALT 259. AP 1414. AFP 4.4. Presently no abdominal complaints. Objective - Vital Signs Vital signs: Vital Signs Temp 97.5 F L 03/22/19 05:00 Pulse 54 L 03/22/19 05:00 Resp 18 03/22/19 05:00 BP 163/73 03/22/19 05:00 Pulse Ox 96 03/22/19 05:00 Intake & Output 03/21/19 03/22/19 03/22/19 18:59 06:59 18:59 Intake Total 60 Output Total 600 Balance -600 60 Intake: Oral 60 Output: Urine 600 Other: Voiding Method Toilet Toilet Toilet # Voids 3 1 # Bowel Movements 1 1 - Exam General appearance: The patient is alert, oriented, in no acute distress. HET: Head is normocephalic and atraumatic. Pupils are equal and reactive. Or opharynx is clear without lesions. Neck: Supple without lymphadenopathy. Trachea midline. Heart: S1 S2. Regular rate and rhythm. Lungs: No crackles or wheezes are heard. Abdomen: Soft, nontender, nondistended with bowel sounds. No peritoneal signs. No palpable organomegaly or masses. Extremities: Normal skin color and turgor. No cyanosis, rash, ulceration, clubbing, or edema. Radial and pedal pulses are 2/4 bilaterally. Neurological: No focal deficits. Strength and sensation are grossly intact. - Labs CBC & Chem 7: 03/22/19 08:20 03/22/19 08:25 Labs: Abnormal Lab Results - Last 24 Hours (Table) 03/20/19 03/21/19 03/21/19 Range/Units 10:46 08:57 11:44 WBC (3.8-10.6) k/uL RBC 2.90 L (4.30-5.90) m/uL Hgb 9.1 L (13.0-17.5) gm/dL Hct 31.4 L (39.0-53.0) % MCV 108.2 H (80.0-100.0) fL MCHC 29.0 L (31.0-37.0) g/dL RDW (11.5-15.5) % Plt Count 71 L (150-450) k/uL Lymphocytes # 0.4 L (1.0-4.8) k/uL Macrocytosis Marked A Chloride (98-107) mmol/L BUN (9-20) mg/dL Creatinine (0.66-1.25) mg/dL Glucose (74-99) mg/dL POC Glucose (mg/dL) 136 H (75-99) mg/dL Hemoglobin A1c 6.3 H (4.0-6.0) % Calcium (8.4-10.2) mg/dL AST (17-59) U/L ALT (21-72) U/L Alkaline Phosphatase (38-126) U/L Total Protein (6.3-8.2) g/dL Albumin (3.5-5.0) g/dL 03/21/19 03/22/19 03/22/19 Range/Units 16:52 06:52 08:20 WBC 3.7 L (3.8-10.6) k/uL RBC 2.99 L (4.30-5.90) m/uL Hgb 9.9 L (13.0-17.5) gm/dL Hct 33.3 L (39.0-53.0) % MCV 111.1 H (80.0-100.0) fL MCHC 29.8 L (31.0-37.0) g/dL RDW 16.1 H (11.5-15.5) % Plt Count (150-450) k/uL Lymphocytes # (1.0-4.8) k/uL Macrocytosis Marked A Chloride (98-107) mmol/L BUN (9-20) mg/dL Creatinine (0.66-1.25) mg/dL Glucose (74-99) mg/dL POC Glucose (mg/dL) 104 H 172 H (75-99) mg/dL Hemoglobin A1c (4.0-6.0) % Calcium (8.4-10.2) mg/dL AST (17-59) U/L ALT (21-72) U/L Alkaline Phosphatase (38-126) U/L Total Protein (6.3-8.2) g/dL Albumin (3.5-5.0) g/dL 03/22/19 Range/Units 08:25 WBC (3.8-10.6) k/uL RBC (4.30-5.90) m/uL Hgb (13.0-17.5) gm/dL Hct (39.0-53.0) % MCV (80.0-100.0) fL MCHC (31.0-37.0) g/dL RDW (11.5-15.5) % Plt Count (150-450) k/uL Lymphocytes # (1.0-4.8) k/uL Macrocytosis Chloride 112 H (98-107) mmol/L BUN 38 H (9-20) mg/dL Creatinine 1.33 H (0.66-1.25) mg/dL Glucose 149 H (74-99) mg/dL POC Glucose (mg/dL) (75-99) mg/dL Hemoglobin A1c (4.0-6.0) % Calcium 8.3 L (8.4-10.2) mg/dL AST 384 H (17-59) U/L ALT 259 H (21-72) U/L Alkaline Phosphatase 1414 H (38-126) U/L Total Protein 5.2 L (6.3-8.2) g/dL Albumin 2.7 L (3.5-5.0) g/dL Microbiology - Last 24 Hours (Table) 03/19/19 10:10 Blood Culture Gram Stain - Final Blood Blood Culture - Final Klebsiella oxytoca - Imaging and Cardiology MRI - abdomen: report reviewed (Dr. Wolfe) Assessment and Plan (1) Abdominal pain Narrative/Plan: 78-year-old gentleman admitted with abdominal pain worsening elevated liver enzymes with recent abdominal imaging at [facility] reporting a 5 cm liver mass. MRI liver yesterday reported no discrete liver mass. Mildly dilated gallbladder suggestive of gallbladder dysfunction. Bile duct is not dilated. Current Visit: Yes Status: Acute Code(s): R10.9 - UNSPECIFIED ABDOMINAL PAIN SNOMED Code(s): 51569568 (2) Elevated liver enzymes Narrative/Plan: Underlying chronic liver disease possible infiltrative pathology cannot be excluded. Current Visit: Yes Status: Acute Code(s): R74.8 - ABNORMAL LEVELS OF OTHER SERUM ENZYMES SNOMED Code(s): 187664980 (3) Cognitive developmental delay Current Visit: Yes Status: Chronic Code(s): F81.9 - DEVELOPMENTAL DISORDER OF SCHOLASTIC SKILLS, UNSPECIFIED SNOMED Code(s): 431290649 Plan: 1. General surgery following we'll defer to their service for further workup if necessary. LFTs worsening will proceed with serologic workup for possible underlying chronic liver disease. US guided liver biopsy. MRI reported no evidence of liver mass. AFP within normal limits 4.4. Hepatitis screen nonreactive. PT/INR in am. Daily monitoring of CBC and CMP. Assessment and plan a care discussed with Dr. Wolfe
--- NOTE | 2019-03-22 10:34 | P.PN ---
Subjective Progress Note Date: 03/22/19 CHIEF COMPLAINT: Abdominal pain HISTORY OF PRESENT ILLNESS: Patient examined at the bedside this morning. Patient denies abdominal pain. Denies nausea or vomiting. tolerating diet. Reports bowel movement this morning. MRI of the liver completed yesterday revea ling mild ascites. No discrete liver mass identified. Mildly dilated gallbladder suggestive of gallbladder dysfunction. Bilirubin 1.0. AST 384. ALT 259. Alkaline phosphatase 1414. PHYSICAL EXAM: VITAL SIGNS: Currently stable. GENERAL: Well-developed in no acute distress. HEENT: No sclera icterus. Extraocular movements grossly intact. Moist buccal mucosa. Head is atraumatic, normocephalic. Hears conversational speech. No nasal drainage. NECK: Supple without lymphadenopathy. CHEST: Non-labored respirations and equal bilateral excursions. CARDIOVASCULAR: Regular rate with regular rhythm. Palpable 2+ radial pulses. ABDOMEN: Soft. Nondistended. Nontender. Positive bowel sounds. MUSCULOSKELETAL: No clubbing, cyanosis or edema. NEUROLOGIC: No focal or lateralizing signs. Cranial nerves II through XII grossly intact. PSYCH: Appropriate affect. Awake and alert. Confused. SKIN: Well perfused. Good skin turgor. ASSESSMENT: 1. Chronic cholecystitis, US shows thickened gallbladder with sludge, patient asymptomatic 2. Transaminitis 3. Liver mass, 5cm, visualized on recent computed tomography scan, ruled out as NOT visualized on MRI PLAN: Low fat diet. GI services following for elevated LFTs. Defer further evaluation to their service. No surgical intervention at this time for gallbladder as patient is completely asymptomatic. We will sign off. Please reconsult if needed. Nurse practitioner note has been reviewed by physician. Signing provider agrees with the documented findings, assessment, and plan of care. Objective - Vital Signs Vital signs: Vital Signs Temp 97.5 F L 03/22/19 05:00 Pulse 54 L 03/22/19 05:00 Resp 18 03/22/19 05:00 BP 163/73 03/22/19 05:00 Pulse Ox 96 03/22/19 05:00 Intake & Output 03/21/19 03/22/19 03/22/19 18:59 06:59 18:59 Intake Total 60 Output Total 600 Balance -600 60 Intake: Oral 60 Output: Urine 600 Other: Voiding Method Toilet Toilet Toilet # Voids 3 1 # Bowel Movements 1 1 - Labs CBC & Chem 7: 03/22/19 08:20 03/22/19 08:25 Labs: Abnormal Lab Results - Last 24 Hours (Table) 03/21/19 03/21/19 03/21/19 Range/Units 08:57 11:44 16:52 WBC (3.8-10.6) k/uL RBC 2.90 L (4.30-5.90) m/uL Hgb 9.1 L (13.0-17.5) gm/dL Hct 31.4 L (39.0-53.0) % MCV 108.2 H (80.0-100.0) fL MCHC 29.0 L (31.0-37.0) g/dL RDW (11.5-15.5) % Plt Count 71 L (150-450) k/uL Lymphocytes # 0.4 L (1.0-4.8) k/uL Macrocytosis Marked A Chloride (98-107) mmol/L BUN (9-20) mg/dL Creatinine (0.66-1.25) mg/dL Glucose (74-99) mg/dL POC Glucose (mg/dL) 136 H 104 H (75-99) mg/dL Calcium (8.4-10.2) mg/dL AST (17-59) U/L ALT (21-72) U/L Alkaline Phosphatase (38-126) U/L Total Protein (6.3-8.2) g/dL Albumin (3.5-5.0) g/dL 03/22/19 03/22/19 03/22/19 Range/Units 06:52 08:20 08:25 WBC 3.7 L (3.8-10.6) k/uL RBC 2.99 L (4.30-5.90) m/uL Hgb 9.9 L (13.0-17.5) gm/dL Hct 33.3 L (39.0-53.0) % MCV 111.1 H (80.0-100.0) fL MCHC 29.8 L (31.0-37.0) g/dL RDW 16.1 H (11.5-15.5) % Plt Count (150-450) k/uL Lymphocytes # (1.0-4.8) k/uL Macrocytosis Marked A Chloride 112 H (98-107) mmol/L BUN 38 H (9-20) mg/dL Creatinine 1.33 H (0.66-1.25) mg/dL Glucose 149 H (74-99) mg/dL POC Glucose (mg/dL) 172 H (75-99) mg/dL Calcium 8.3 L (8.4-10.2) mg/dL AST 384 H (17-59) U/L ALT 259 H (21-72) U/L Alkaline Phosphatase 1414 H (38-126) U/L Total Protein 5.2 L (6.3-8.2) g/dL Albumin 2.7 L (3.5-5.0) g/dL Microbiology - Last 24 Hours (Table) 03/19/19 10:10 Blood Culture Gram Stain - Final Blood Blood Culture - Final Klebsiella oxytoca Assessment and Plan (1) Chronic cholecystitis Current Visit: Yes Status: Acute Code(s): K81.1 - CHRONIC CHOLECYSTITIS SNOMED Code(s): 87789465 (2) Elevated alkaline phosphatase level Current Visit: Yes Status: Acute Code(s): R74.8 - ABNORMAL LEVELS OF OTHER SERUM ENZYMES SNOMED Code(s): 524823433 (3) Liver mass Current Visit: Yes Status: Acute Code(s): R16.0 - HEPATOMEGALY, NOT ELSEWHERE CLASSIFIED SNOMED Code(s): 261129837
[2019-03-22 11:10] LABS: Rouleaux Present
[2019-03-22 12:38] LABS: Glucose,Whole Blood 139 mg/dL (75-99)
--- NOTE | 2019-03-22 15:08 | P.PN ---
Subjective Progress Note Date: 03/22/19 Principal diagnosis: This is a 78-year-old male who was admitted for right upper quadrant abdominal pain that has decreased in intensity. Patient is currently continuing to have elevated liver enzymes. Patient is being followed closely. GI and surgery are following as well. Patient currently denies any abdominal pain but is having pain with urination. Patient recently had a Romero catheter removed that was present on admission for a past history of urinary retention. Patient is urinating well but is having discomfort each time. Patient is currently being treated with IV antibiotics of Rocephin. Urine cultures thus far are negative for any growth. Urology is following. Blood cultures do reveal Klebsiella oxytoca. Patient denies any shortness of breath, chest pain, or palpitations at this time. Patient denies any nausea or vomiting and is tolerating diet. Per nursing staff patient is urinating often. Patient had an MRI of the liver done which shows mild ascites, no discrete liver mass, mildly dilated gallbladder suggestive of gallbladder dysfunction, and pleural effusions and basilar pulmonary infiltrates and atelectasis. Per surgical services there is no surgical intervention at this time for the gallbladder as he is asymptomatic. Patient will continue on a low-fat diet. Prognosis is guarded. Will recheck labs in the morning. Objective - Vital Signs Vital signs: Vital Signs Temp 98 F 03/22/19 12:30 Pulse 61 03/22/19 12:30 Resp 18 03/22/19 12:30 BP 154/78 03/22/19 12:30 Pulse Ox 94 L 03/22/19 12:30 Intake & Output 03/21/19 03/22/19 03/22/19 18:59 06:59 18:59 Intake Total 60 Output Total 600 Balance -600 60 Intake: Oral 60 Output: Urine 600 Other: Voiding Method Toilet Toilet Toilet # Voids 3 1 2 # Bowel Movements 1 1 - Exam Gen: This is a 78-year-old male sitting up in bed in no acute distress. Blood pressure is 154/78, pulse is 61 and regular, respirations are 18 and non- labored, temp is 98F, oxygen saturation is 94% on room air. HEENT: Head is atraumatic, normocephalic. Pupils equal, round. Sclerae is anicteric. NECK: Supple. No JVD. No lymphadenopathy. No thyromegaly. LUNGS: Clear to auscultation. No wheezes or rhonchi. No intercostal retractions. HEART: Regular rate and rhythm. No murmur. ABDOMEN: Soft. Bowel sounds are present. No masses. Mildly distended. No tenderness. EXTREMITIES: No pedal edema. No calf tenderness. NEUROLOGICAL: Patient is awake, alert and oriented x3. Cranial nerves 2 through 12 are grossly intact. Patient does have a history of slow mentation - Labs CBC & Chem 7: 03/22/19 08:20 03/22/19 08:25 Labs: Abnormal Lab Results - Last 24 Hours (Table) 03/21/19 03/22/19 03/22/19 Range/Units 16:52 06:52 08:20 WBC 3.7 L (3.8-10.6) k/uL RBC 2.99 L (4.30-5.90) m/uL Hgb 9.9 L (13.0-17.5) gm/dL Hct 33.3 L (39.0-53.0) % MCV 111.1 H (80.0-100.0) fL MCHC 29.8 L (31.0-37.0) g/dL RDW 16.1 H (11.5-15.5) % Plt Count 91 L (150-450) k/uL Lymphocytes # 0.5 L (1.0-4.8) k/uL Macrocytosis Marked A Chloride (98-107) mmol/L BUN (9-20) mg/dL Creatinine (0.66-1.25) mg/dL Glucose (74-99) mg/dL POC Glucose (mg/dL) 104 H 172 H (75-99) mg/dL Calcium (8.4-10.2) mg/dL AST (17-59) U/L ALT (21-72) U/L Alkaline Phosphatase (38-126) U/L Total Protein (6.3-8.2) g/dL Albumin (3.5-5.0) g/dL 03/22/19 03/22/19 Range/Units 08:25 12:27 WBC (3.8-10.6) k/uL RBC (4.30-5.90) m/uL Hgb (13.0-17.5) gm/dL Hct (39.0-53.0) % MCV (80.0-100.0) fL MCHC (31.0-37.0) g/dL RDW (11.5-15.5) % Plt Count (150-450) k/uL Lymphocytes # (1.0-4.8) k/uL Macrocytosis Chloride 112 H (98-107) mmol/L BUN 38 H (9-20) mg/dL Creatinine 1.33 H (0.66-1.25) mg/dL Glucose 149 H (74-99) mg/dL POC Glucose (mg/dL) 139 H (75-99) mg/dL Calcium 8.3 L (8.4-10.2) mg/dL AST 384 H (17-59) U/L ALT 259 H (21-72) U/L Alkaline Phosphatase 1414 H (38-126) U/L Total Protein 5.2 L (6.3-8.2) g/dL Albumin 2.7 L (3.5-5.0) g/dL Assessment and Plan Assessment: Abdominal pain possibly of chronic cholecystitis. MRI of liver shows no discrete liver mass, mild abdominal ascites, bile ducts do not appear to be dilated, and mildly dilated gallbladder suggesting gallbladder dysfunction. Patient is asymptomatic. GI and surgery are following. Elevated liver enzymes will be looking for obstruction of the biliary tract with elevated bilirubin and significant elevation of alkaline phosphatase Possible urinary tract infection with hematuria on admission, continue with Rocephin at this time. Urine cultures are positive for Klebsiella oxytocia which is pansensitive, patient will need another day of IV Rocephin Renal failure mostly appears to be chronic kidney disease as there is no response to IV fluids. Patient is hyperchloremic and will continue to encourage drinking water. We'll continue to monitor kidney functions. Cannot state if he has chronic kidney disease as we are unaware of his previous baseline creatinine Diabetes mellitus type 2, continue with current regimen and we'll monitor blood sugars Hypertension Hyperlipidemia Recommendations and discussion: Continue current medications and symptomatic treatment. We'll continue IV antibiotics for urinary tract infection. We will continue to monitor labs and vital signs closely along with output and intake of oral fluids. Guarded prognosis. Further recommendations to follow.
[2019-03-22 17:30] LABS: Glucose,Whole Blood 215 mg/dL (75-99)
[2019-03-22 20:45] LABS: Glucose,Whole Blood 78 mg/dL (75-99)
[2019-03-23 07:00] LABS: Glucose,Whole Blood 119 mg/dL (75-99)
[2019-03-23] MEDS: DIVALPROEX ER 500 MG TAB.ER.24H PO SCH (08:31)
[2019-03-23] MEDS: POLYETHYLENE GLYCOL 3350 17 GM POWD.PACK PO SCH ×2 (08:31→08:39)
[2019-03-23] MEDS: FERROUS SULFATE 325 MG TAB PO SCH ×2 (08:31→21:32)
[2019-03-23] MEDS: CHOLECALCIFEROL 1,000 UNIT TAB PO SCH (08:31)
[2019-03-23] MEDS: TAMSULOSIN 0.4 MG CAP.ER.24H PO SCH (08:31)
[2019-03-23] MEDS: INSULIN ASPART (NovoLOG) 100 UNIT/ML VIAL SQ SCH ×7 (08:31→21:33)
[2019-03-23] MEDS: CALCITRIOL 0.25 MCG CAP PO SCH (08:31)
[2019-03-23] MEDS: CYANOCOBALAMIN 500 MCG TAB PO SCH (08:31)
[2019-03-23] MEDS: HEPARIN SODIUM,PORCINE 5,000 UNIT/ML 1 ML VIAL SQ SCH ×2 (08:32→19:33)
[2019-03-23 09:12] LABS: INR 1.1 (<1.2); Partial Thromboplastin Time 28.6 sec (22.0-30.0); Prothrombin Time 11.3 sec (9.0-12.0)
[2019-03-23 09:20] LABS: Albumin 2.8 g/dL (3.5-5.0); Calcium 8.4 mg/dL (8.4-10.2); Potassium 4.9 mmol/L (3.5-5.1); Total Bilirubin 1.2 mg/dL (0.2-1.3); Total Protein 5.4 g/dL (6.3-8.2)
[2019-03-23 11:21] LABS: Glucose,Whole Blood 178 mg/dL (75-99)
--- NOTE | 2019-03-23 11:44 | P.PN ---
Subjective Progress Note Date: 03/23/19 Principal diagnosis: Abdominal pain 78-year-old gentleman past medical history of cognitive delay. Brother at bedside assisting with history. MRI liver reported no liver mass, no abnormalities of biliary tree. History of recent abdominal imaging at [facility] noted to have a 5 cm mass in the liver adjacent to the thierno hepatis. General surgery following no surgical plans at this time. No abdominal complaints. Afebrile. Toda LFTs have increased total bilirubin 1.2. AST 362. ALT 288. AP 1582. INR 1.1. Objective - Vital Signs Vital signs: Vital Signs Temp 97.6 F 03/23/19 05:00 Pulse 57 L 03/23/19 05:00 Resp 18 03/23/19 05:00 BP 163/73 03/23/19 05:00 Pulse Ox 95 03/23/19 05:00 Intake & Output 03/22/19 03/23/19 03/23/19 18:59 06:59 18:59 Intake Total 480 Balance 480 Intake: Oral 480 Other: Voiding Method Toilet Toilet Toilet Diaper Diaper # Voids 2 2 - Exam General appearance: The patient is alert, oriented, in no acute distress. HET: Head is normocephalic and atraumatic. Pupils are equal and reactive. Oropharynx is clear without lesions. Neck: Supple without lymphadenopathy. Trachea midline. Heart: S1 S2. Regular rate and rhythm. Lungs: No crackles or wheezes are heard. Abdomen: Soft, nontender, nondistended with bowel sounds. No peritoneal signs. No palpable organomegaly or masses. Extremities: Normal skin color and turgor. No cyanosis, rash, ulceration, clubbing, or edema. Radial and pedal pulses are 2/4 bilaterally. Neurological: No focal deficits. Strength and sensation are grossly intact. - Labs CBC & Chem 7: 03/22/19 08:20 03/23/19 08:08 Labs: Abnormal Lab Results - Last 24 Hours (Table) 03/22/19 03/22/19 03/23/19 Range/Units 12:27 17:28 06:58 Chloride (98-107) mmol/L BUN (9-20) mg/dL Creatinine (0.66-1.25) mg/dL Glucose (74-99) mg/dL POC Glucose (mg/dL) 139 H 215 H 119 H (75-99) mg/dL AST (17-59) U/L ALT (21-72) U/L Alkaline Phosphatase (38-126) U/L Total Protein (6.3-8.2) g/dL Albumin (3.5-5.0) g/dL 03/23/19 03/23/19 Range/Units 08:08 11:19 Chloride 111 H (98-107) mmol/L BUN 37 H (9-20) mg/dL Creatinine 1.54 H (0.66-1.25) mg/dL Glucose 109 H (74-99) mg/dL POC Glucose (mg/dL) 178 H (75-99) mg/dL AST 362 H (17-59) U/L ALT 288 H (21-72) U/L Alkaline Phosphatase 1582 H (38-126) U/L Total Protein 5.4 L (6.3-8.2) g/dL Albumin 2.8 L (3.5-5.0) g/dL Assessment and Plan (1) Abdominal pain Narrative/Plan: 78-year-old gentleman admitted with abdominal pain worsening elevated liver enzymes with recent abdominal imaging at [facility] reporting a 5 cm liver mass. MRI liver yesterday reported no discrete liver mass. Mildly dilated gallbladder suggestive of gallbladder dysfunction. Bile duct is not dilated. Current Visit: Yes Status: Acute Code(s): R10.9 - UNSPECIFIED ABDOMINAL PAIN SNOMED Code(s): 35795765 (2) Elevated liver enzymes Narrative/Plan: Underlying chronic liver disease possible infiltrative pathology cannot be excluded. Current Visit: Yes Status: Acute Code(s): R74.8 - ABNORMAL LEVELS OF OTHER SERUM ENZYMES SNOMED Code(s): 138865529 (3) Cognitive developmental delay Current Visit: Yes Status: Chronic Code(s): F81.9 - DEVELOPMENTAL DISORDER OF SCHOLASTIC SKILLS, UNSPECIFIED SNOMED Code(s): 545117686 Plan: 1. LFTs worsening will proceed with liver biopsy today. Serologic workup for possible underlying chronic liver disease pending. MRI reported no evidence of liver mass. AFP within normal limits 4.4. Hepatitis screen nonreactive. PT/INR in am. Daily monitoring of CBC and CMP. Assessment and plan a care discussed with Dr. Wolfe
[2019-03-23 17:25] LABS: Glucose,Whole Blood 194 mg/dL (75-99)
[2019-03-23 18:21] LABS: Iron Saturation 41.25 (15.00-50.00); Iron(FE) 99 ug/dL (65-175); Protein, Total 4.9 g/dL (6.2-8.2); Total Iron Binding Capacity 240 ug/dL (228-460)
--- NOTE | 2019-03-23 18:24 | P.PN ---
Subjective Progress Note Date: 03/23/19 Principal diagnosis: This is a 78-year-old male who was admitted for right upper quadrant abdominal pain that has decreased in intensity. Patient is currently continuing to have elevated liver enzymes. Patient is being followed closely. GI and surgery are following as well. Patient currently denies any abdominal pain but is having pain with urination. Patient recently had a Romero catheter removed that was present on admission for a past history of urinary retention. Patient is urinating well but is having discomfort each time. Patient is currently being treated with IV antibiotics of Rocephin. Urine cultures thus far are negative for any growth. Urology is following. Blood cultures do reveal Klebsiella oxytoca. Patient denies any shortness of breath, chest pain, or palpitations at this time. Patient denies any nausea or vomiting and is tolerating diet. Per nursing staff patient is urinating often. Patient had an MRI of the liver done which shows mild ascites, no discrete liver mass, mildly dilated gallbladder suggestive of gallbladder dysfunction, and pleural effusions and basilar pulmonary infiltrates and atelectasis. Per surgical services there is no surgical intervention at this time for the gallbladder as he is asymptomatic. Patient will continue on a low-fat diet. Prognosis is guarded. Will recheck labs in the morning. 03/23/2019 Patient is lying in bed in no acute distress. Patient is denying any shortness of breath, chest pain, or palpitations at this time. Patient is having some mild discomfort at the tip of his penis with each urination. Patient did have a urinary catheter due to urinary retention with signs of urinary tract infection and is currently on IV antibiotics for this. Will continue to monitor. Patient is tolerating foods and fluids and urinating often per nursing staff. Patient continues to have elevated liver functions AST is 362, ALT 288, ALK phos is 1582 which is elevated from yesterday. Per surgery there are no interventions at this time. GI is following closely as well and will be scheduling the patient for a biopsy of the liver after consent is obtained from patient's brother who is his guardian. Patient will be NPO after midnight if consent is obtained. Objective - Vital Signs Vital signs: Vital Signs Temp 97.8 F 03/23/19 12:18 Pulse 59 L 03/23/19 12:18 Resp 16 03/23/19 12:18 BP 136/68 03/23/19 12:18 Pulse Ox 96 03/23/19 12:18 Intake & Output 03/22/19 03/23/19 03/23/19 18:59 06:59 18:59 Intake Total 480 50 Balance 480 50 Intake: Intake, IV Titration 50 Amount cefTRIAXone 1 gm In 50 Sodium Chloride 0.9% 50 ml @ 100 mls/hr IVPB Q24HR [facility] Rx#:[id number] Oral 480 Other: Voiding Method Toilet Toilet Toilet Diaper Diaper # Voids 2 2 - Exam Gen: This is a 78-year-old male lying in bed in no acute distress. Blood pressure is 163/73, pulse is 57, respirations are 18 and non-labored, temp is 97.6F, oxygen saturation is 95% on room air. HEENT: Head is atraumatic, normocephalic. Pupils equal, round. Sclerae is anicteric. NECK: Supple. No JVD. No lymphadenopathy. No thyromegaly. LUNGS: Clear to auscultation. No wheezes or rhonchi. No intercostal retracti ons. HEART: Regular rate and rhythm. No murmur. ABDOMEN:Firm. Bowel sounds are present. No masses. Mildly distended. No tenderness. EXTREMITIES: No pedal edema. No calf tenderness. NEUROLOGICAL: Patient is awake, alert and oriented x3. Cranial nerves 2 through 12 are grossly intact. Patient does have a history of slow mentation - Labs CBC & Chem 7: 03/22/19 08:20 03/23/19 08:08 Labs: Abnormal Lab Results - Last 24 Hours (Table) 03/23/19 03/23/19 03/23/19 Range/Units 06:58 08:08 11:19 Chloride 111 H (98-107) mmol/L BUN 37 H (9-20) mg/dL Creatinine 1.54 H (0.66-1.25) mg/dL Glucose 109 H (74-99) mg/dL POC Glucose (mg/dL) 119 H 178 H (75-99) mg/dL AST 362 H (17-59) U/L ALT 288 H (21-72) U/L Alkaline Phosphatase 1582 H (38-126) U/L Total Protein 5.4 L (6.3-8.2) g/dL Albumin 2.8 L (3.5-5.0) g/dL 03/23/19 Range/Units 17:23 Chloride (98-107) mmol/L BUN (9-20) mg/dL Creatinine (0.66-1.25) mg/dL Glucose (74-99) mg/dL POC Glucose (mg/dL) 194 H (75-99) mg/dL AST (17-59) U/L ALT (21-72) U/L Alkaline Phosphatase (38-126) U/L Total Protein (6.3-8.2) g/dL Albumin (3.5-5.0) g/dL Assessment and Plan Assessment: Abdominal pain possibly of chronic cholecystitis. MRI of liver shows no discrete liver mass, mild abdominal ascites, bile ducts do not appear to be dilated, and mildly dilated gallbladder suggesting gallbladder dysfunction. Patient is asymptomatic. GI and surgery are following. Elevated liver enzymes will be looking for obstruction of the biliary tract with elevated bilirubin and significant elevation of alkaline phosphatase. Continue to be elevated. Plan is for a guided liver biopsy under anesthesia with GI for the morning if consent is obtained. Possible urinary tract infection with hematuria on admission, continue with Rocephin at this time. Urine cultures are positive for Klebsiella oxytocia which is pansensitive, patient will need another day of IV Rocephin Renal failure mostly appears to be chronic kidney disease as there is no response to IV fluids. Patient is hyperchloremic and will continue to encourage drinking water. We'll continue to monitor kidney functions. Cannot state if he has chronic kidney disease as we are unaware of his previous baseline creatinine. Current Creatinine is 1.54 Diabetes mellitus type 2, continue with current regimen and we'll monitor blood sugars Hypertension Hyperlipidemia Recommendations and discussion: Continue current medications and symptomatic treatment. We'll continue IV antibiotics for urinary tract infection. We will continue to monitor labs and vital signs closely along with output and intake of oral fluids. Guarded prognosis. Plan is for a liver biopsy in the am. GI is following closely. Further recommendations to follow.
[2019-03-23 19:46] LABS: Glucose,Whole Blood 174 mg/dL (75-99)
[2019-03-24 07:09] LABS: Glucose,Whole Blood 126 mg/dL (75-99)
[2019-03-24] MEDS: INSULIN ASPART (NovoLOG) 100 UNIT/ML VIAL SQ SCH ×6 (07:44→18:09)
[2019-03-24] MEDS: FERROUS SULFATE 325 MG TAB PO SCH ×2 (07:46→16:31)
[2019-03-24] MEDS: HEPARIN SODIUM,PORCINE 5,000 UNIT/ML 1 ML VIAL SQ SCH (07:46)
[2019-03-24] MEDS: POLYETHYLENE GLYCOL 3350 17 GM POWD.PACK PO SCH ×2 (07:46→16:32)
[2019-03-24 08:09] LABS: Anisocytosis Slight; Basophils % (A) 1 %; Eosinophils # (A) 0.1 k/uL (0-0.7); Eosinophils % (A) 3 %; HCT 27.8 % (39.0-53.0); HGB 8.5 gm/dL (13.0-17.5); Hypochromasia Marked; Lymphocytes # (A) 0.6 k/uL (1.0-4.8); Lymphocytes % (A) 23 %; MCH 33.6 pg (25.0-35.0); MCHC 30.6 g/dL (31.0-37.0); MCV 109.9 fL (80.0-100.0); Macrocytosis Marked; Monocytes # (A) 0.2 k/uL (0-1.0); Monocytes % (A) 8 %; Neutrophils # (A) 1.7 k/uL (1.3-7.7); Neutrophils % (A) 64 %; RBC 2.53 m/uL (4.30-5.90); RDW 16.4 % (11.5-15.5); WBC 2.7 k/uL (3.8-10.6)
[2019-03-24 08:14] LABS: Platelet Count 85 k/uL (150-450)
[2019-03-24 08:23] LABS: Albumin 2.4 g/dL (3.5-5.0); Calcium 8.2 mg/dL (8.4-10.2); Potassium 4.9 mmol/L (3.5-5.1); Total Bilirubin 2.1 mg/dL (0.2-1.3); Total Protein 4.8 g/dL (6.3-8.2)
[2019-03-24 09:07] LABS: Rouleaux Present
--- NOTE | 2019-03-24 10:42 | P.PN ---
Subjective Progress Note Date: 03/24/19 Principal diagnosis: Abdominal pain 78-year-old gentleman past medical history of cognitive delay. Brother at bedside. MRI liver reported no liver mass however discussion with in terventional radiologist this morning MRI shows evidence of intra-and extrahepatic biliary tree dilation tree. History of recent abdominal imaging at [facility] on 03/04/2019 noted to have an approximate 5 times 5 cm mass in the liver adjacent to the thierno hepatis without biliary tree abnormality. General surgery following no surgical plans at this time. No abdominal complaints. Afebrile. Toda LFTs have increased total bilirubin 2.1 AST 487. ALT 301. AP 1450. CEA 12.3. Objective - Vital Signs Vital signs: Vital Signs Temp 97.9 F 03/24/19 05:00 Pulse 62 03/24/19 05:00 Resp 16 03/24/19 05:00 BP 150/67 03/24/19 05:00 Pulse Ox 96 03/24/19 05:00 Intake & Output 03/23/19 03/24/19 03/24/19 18:59 06:59 18:59 Intake Total 50 1380 Balance 50 1380 Intake: Intake, IV Titration 50 Amount cefTRIAXone 1 gm In 50 Sodium Chloride 0.9% 50 ml @ 100 mls/hr IVPB Q24HR [facility] Rx#:[id number] Oral 1380 Other: Voiding Method Toilet Toilet Diaper Diaper # Voids 1 # Bowel Movements 1 - Exam General appearance: The patient is alert, oriented, in no acute distress. HET: Head is normocephalic and atraumatic. Pupils are equal and reactive. Oropharynx is clear without lesions. Sclerae mildly icteric. Neck: Supple without lymphadenopathy. Trachea midline. Heart: S1 S2. Regular rate and rhythm. Lungs: No crackles or wheezes are heard. Abdomen: Soft, nontender, nondistended with bowel sounds. No peritoneal signs. No palpable organomegaly or masses. Extremities: Normal skin color and turgor. No cyanosis, rash, ulceration, clubbing, or edema. Radial and pedal pulses are 2/4 bilaterally. Neurological: No focal deficits. Strength and sensation are grossly intact. - Labs CBC & Chem 7: 03/24/19 07:32 03/24/19 07:04 Labs: Abnormal Lab Results - Last 24 Hours (Table) 03/23/19 03/23/19 03/23/19 Range/Units 08:08 08:08 11:19 WBC (3.8-10.6) k/uL RBC (4.30-5.90) m/uL Hgb (13.0-17.5) gm/dL Hct (39.0-53.0) % MCV (80.0-100.0) fL MCHC (31.0-37.0) g/dL RDW (11.5-15.5) % Plt Count (150-450) k/uL Lymphocytes # (1.0-4.8) k/uL Macrocytosis Chloride (98-107) mmol/L BUN (9-20) mg/dL Creatinine (0.66-1.25) mg/dL Glucose (74-99) mg/dL POC Glucose (mg/dL) 178 H (75-99) mg/dL Calcium (8.4-10.2) mg/dL Total Bilirubin (0.2-1.3) mg/dL AST (17-59) U/L ALT (21-72) U/L Alkaline Phosphatase (38-126) U/L Total Protein (6.3-8.2) g/dL Total Protein (PEP) 4.9 L (6.2-8.2) g/dL Albumin (3.5-5.0) g/dL Carcinoembryonic Ag 12.3 H (0.0-4.9) ng/mL 03/23/19 03/23/19 03/24/19 Range/Units 17:23 19:45 07:04 WBC (3.8-10.6) k/uL RBC (4.30-5.90) m/uL Hgb (13.0-17.5) gm/dL Hct (39.0-53.0) % MCV (80.0-100.0) fL MCHC (31.0-37.0) g/dL RDW (11.5-15.5) % Plt Count (150-450) k/uL Lymphocytes # (1.0-4.8) k/uL Macrocytosis Chloride 111 H (98-107) mmol/L BUN 33 H (9-20) mg/dL Creatinine 1.31 H (0.66-1.25) mg/dL Glucose 126 H (74-99) mg/dL POC Glucose (mg/dL) 194 H 174 H (75-99) mg/dL Calcium 8.2 L (8.4-10.2) mg/dL Total Bilirubin 2.1 H (0.2-1.3) mg/dL AST 487 H (17-59) U/L ALT 301 H (21-72) U/L Alkaline Phosphatase 1450 H (38-126) U/L Total Protein 4.8 L (6.3-8.2) g/dL Total Protein (PEP) (6.2-8.2) g/dL Albumin 2.4 L (3.5-5.0) g/dL Carcinoembryonic Ag (0.0-4.9) ng/mL 03/24/19 03/24/19 Range/Units 07:08 07:32 WBC 2.7 L (3.8-10.6) k/uL RBC 2.53 L (4.30-5.90) m/uL Hgb 8.5 L (13.0-17.5) gm/dL Hct 27.8 L (39.0-53.0) % MCV 109.9 H (80.0-100.0) fL MCHC 30.6 L (31.0-37.0) g/dL RDW 16.4 H (11.5-15.5) % Plt Count 85 L (150-450) k/uL Lymphocytes # 0.6 L (1.0-4.8) k/uL Macrocytosis Marked A Chloride (98-107) mmol/L BUN (9-20) mg/dL Creatinine (0.66-1.25) mg/dL Glucose (74-99) mg/dL POC Glucose (mg/dL) 126 H (75-99) mg/dL Calcium (8.4-10.2) mg/dL Total Bilirubin (0.2-1.3) mg/dL AST (17-59) U/L ALT (21-72) U/L Alkaline Phosphatase (38-126) U/L Total Protein (6.3-8.2) g/dL Total Protein (PEP) (6.2-8.2) g/dL Albumin (3.5-5.0) g/dL Carcinoembryonic Ag (0.0-4.9) ng/mL Assessment and Plan (1) Abdominal pain Narrative/Plan: 78-year-old gentleman admitted with abdominal pain worsening elevated liver enzymes with recent abdominal imaging at [facility] reporting a 5 cm liver mass adjacent to the thierno hepatis. MRI liver yesterday reported no discrete liver mass however discussion with interventional radiologist this morning reports intra-and extrahepatic biliary tree dilation raising the possibility of an obstructive process. Mildly dilated gallbladder suggestive of gallbladder dysfunction. Current Visit: Yes Status: Acute Code(s): R10.9 - UNSPECIFIED ABDOMINAL PAIN SNOMED Code(s): 89548642 (2) Elevated liver enzymes Current Visit: Yes Status: Acute Code(s): R74.8 - ABNORMAL LEVELS OF OTHER SERUM ENZYMES SNOMED Code(s): 548265589 (3) Cognitive developmental delay Current Visit: Yes Status: Chronic Code(s): F81.9 - DEVELOPMENTAL DISORDER OF SCHOLASTIC SKILLS, UNSPECIFIED SNOMED Code(s): 501232615 Plan: 1. LFTs worsening will proceed with ERCP today. Serologic workup for possible underlying chronic liver disease pending. AFP within normal limits 4.4. CEA elevated 12.3. Hepatitis screen nonreactive. PT/INR in am. Daily monitoring of CBC and CMP. The manager of corporate has discussed the risks, benefits and alternative therapies for the above-mentioned procedure and for both sedation/analgesia as well as necessary blood product administration, if indicated, as they pertain to this patient. The patient brother has indicated understanding and acceptance of the risks and procedures discussed. Assessment and plan a care discussed with Dr. Wolfe
[2019-03-24 11:30] LABS: Glucose,Whole Blood 132 mg/dL (75-99)
[2019-03-24] MEDS ORDERED: INDOMETHACIN 50MG SUPPOSITORY RECTAL ONE ×2 (12:00→12:30)
[2019-03-24 12:03] LABS: Liver/Kidney Microsome Antibod 0.8 UNITS (<=20)
[2019-03-24] MEDS ORDERED: LEVOFLOXACIN 500MG-D5W PMX 500 MG in DEXTROSE/WATER 1 100ML.BAG IVPB ONE (12:30)
[2019-03-24] MEDS ORDERED: LIDOCAINE 1% INJ 10MG/ML (20 ML MDV) ONE (13:37)
[2019-03-24] MEDS ORDERED: GLUCAGON 1 MG/ML VIAL ONE (13:37)
[2019-03-24] MEDS ORDERED: PROPOFOL 10 MG/ML 20 ML VIAL IV ONE (13:37)
[2019-03-24 13:54] LABS: Albumin 2.54 g/dL (3.80-4.90); Gamma Globulin 0.66 g/dL (0.70-1.50)
[2019-03-24 13:55] LABS: Ceruloplasmin 38.6 mg/dL (20.0-60.0)
[2019-03-24] MEDS ORDERED: IOPAMIDOL-300 50ML BTL INJ ONE (14:20)
[2019-03-24] MEDS ORDERED: IV FLUID CONTINUATION 1,000 ML IV ONE (14:22)
--- NOTE | 2019-03-24 14:23 | P.PCN ---
Date of Procedure: 03/24/19 Procedure(s) Performed: Brief history: Patient is a 78 year-old pleasant white male scheduled for an ERCP as part of evaluation of his symptomatic elevation of serum transaminases as well as bilirubin of 2.1 and alkaline phosphatase of 1400. CT of the abdomen done at [facility] 2 weeks ago showed a 5 cm mass near the thierno hepatis. An MRI of was recommended. Patient was admitted to the hospital with UTI. While in the hospital he had an MRI done that showed no obvious mass but there is evidence of intra-and extra hepatic biliary ductal dilation with common bile duct measuring 1.8 cm and hence he scheduled for an ERCP today. Risks benefits and complications were discussed with the patient's family. Procedure performed: Attempted ERCP Preoperative diagnoses: Asymptomatic elevation of serum transaminases as well as jaundice/elevated alkaline phosphatase. MRI of the liver showed dilated CBD and intrahepatic biliary system IV sedation per anesthesia: Procedure: After informed consent was obtained from the patient and after the risks benefits and complications including bleeding perforation and pancreatitis explained in detail the patient was brought into the endoscopy unit. The patient was placed in prone position and IV conscious sedation was administered by anesthesia under continuous monitoring. The Olympus side-viewing duodenoscope was then inserted into the mouth and esophagus intubated without any difficulty. The scope was gradually advanced into the stomach and duodenum. The major papilla was identified without any difficulty. Despite multiple attempts using the tapered-tip catheter and the guidewire technique I was not able to cannulate the common bile duct or the pancreatic duct. After 30 minutes of trying the procedure was terminated. Patient tolerated the procedure well. Impression: Unsuccessful cannulation of common bile duct and pancreatic duct. Recommendations: The findings of this examination were discussed with the patient as well as a family. We discussed with the family about transferring to a tertiary care for further management
--- NOTE | 2019-03-24 14:43 | FL ---
Fluoroscopy HISTORY: Jaundice 26 seconds fluoroscopy time supplied to the referring clinician. 1 intraoperative C-arm images docum ent the procedure. See dictated report from gastroenterology.
[2019-03-24] MEDS ORDERED: DILTIAZEM 5 MG/ML 5 ML VIAL IVP STA (15:02)
[2019-03-24] MEDS ORDERED: HEPARIN SODIUM,PORCINE 5,000 UNIT/ML 1 ML VIAL IV PRN (15:51)
[2019-03-24] MEDS ORDERED: HEPARIN SODIUM,PORCINE 5,000 UNIT/ML 1 ML VIAL IV ONE (15:51)
[2019-03-24] MEDS ORDERED: DILTIAZEM 125 MG in SODIUM CHLORIDE 0.9% 100 ML IV SCH (16:00)
[2019-03-24] MEDS ORDERED: HEPARIN SOD,PORK IN 0.45% NACL 25,000 UNIT in 0.45% NACL 1 250ML.BAG IV SCH (16:00)
[2019-03-24 16:14] LABS: Folate, Serum 22.2 ng/mL
[2019-03-24] MEDS: TAMSULOSIN 0.4 MG CAP.ER.24H PO SCH (16:30)
[2019-03-24] MEDS: CHOLECALCIFEROL 1,000 UNIT TAB PO SCH (16:31)
[2019-03-24] MEDS: DIVALPROEX ER 500 MG TAB.ER.24H PO SCH (16:31)
[2019-03-24] MEDS: CALCITRIOL 0.25 MCG CAP PO SCH (16:31)
[2019-03-24] MEDS: CYANOCOBALAMIN 500 MCG TAB PO SCH (16:32)
[2019-03-24 16:58] LABS: INR 1.2 (<1.2); Partial Thromboplastin Time 28.6 sec (22.0-30.0)
--- NOTE | 2019-03-24 16:58 | P.DS ---
Providers Date of admission: 03/19/19 13:34 Expected date of discharge: 03/24/19 Attending physician: Isis Sloan Consults: 03/19/19 13:29 Consult Physician Stat Consulting Provider: Kenan Pruett Consult Reason/Comments: uti, urinary retention, catheter placement Do you want consulting provider notified?: Yes 03/20/19 11:53 Consult Physician Routine Consulting Provider: Hemanth Patel Consult Reason/Comments: Elevated liver enzymes Do you want consulting provider notified?: Yes, Notify in am 03/24/19 14:41 Consult Physician Stat Consulting Provider: [facility] Consult Reason/Comments: new onset atrial fibrillation Do you want consulting provider notified?: Yes Primary care physician: Corinna Newsome [facility] Course: Final diagnosis Abdominal pain possibly of chronic cholecystitis with mild abdominal ascites and mildly dilated gallbladder suggesting gallbladder dysfunction Elevated liver enzymes attempted an ERCP that was unsuccessful looking for a liver mass or obstruction of the biliary tract Elevated bilirubin Elevated alkaline phosphatase Possible urinary tract infection with hematuria on admission Urine cultures are positive for Klebsiella oxytoca Renal failure mostly appears to be chronic kidney disease. Cannot stage the chronic kidney disease as we are unaware of previous baseline creatinine Hyperchloremic Diabetes mellitus type 2 Hypertension Hyperlipidemia Discharge disposition The patient is being transferred to [facility] for higher level of care and a stable condition with guarded prognosis. Patient will be transferred to a telemetry unit with cardiac monitoring. Case management is following. Awaiting a callback for a bed assignment as Dr. Mathew of [facility] has accepted the patient. History of Present illness This is a 78-year-old male who was admitted for right upper quadrant abdominal pain, elevated liver enzymes, and elevated bilirubin. Patient was being treated for a urinary tract infection with IV Rocephin antibiotics. Patient went down for an ERCP this afternoon which was unsuccessful and per GI recommendations the patient should be transferred to [facility] for higher level of care for acute hepatitis, possible obstruction, possible mass with worsening liver functions. AST is 487, ALt is 301, alk phos is 1450, total bilirubin is 2.1, vitamin B12 is 2565. Patient was accepted on a medical unit while he was in recovery. Nurses notified us that patient was in A. fib with RVR with heart rates from 100-123 and was being transferred to a selective unit with cardiac monitoring. Patient is being started on a Cardizem drip as well as a heparin drip. Spoke to [facility] transfer team again to make them aware of this new finding and spoke with the doctor in regards to transferring to a telemetry unit for close cardiac monitoring. Will continue to monitor. We are currently waiting for a bed assignment at [facility] cardiac unit. Family is at the bedside and is aware of the situation. Family is agreeable to the transfer. on exam vital signs are stable. Blood pressure is 105/62, heart rate is 103 showing afib with RVR on the monitor, oxygen saturation is 98% on 3 L nasal cannula, respirations are 16, temp is 97.9F. Cardio S1 and S2 are heard, respiratory system is clear to auscultation. Abdomen is firm, and non-tender. Nervous system shows no focal deficits Please refer to medication reconciliation sheet for a list of medications. Patient Condition at Discharge: Serious Plan - Discharge Summary Discharge Rx Participant: No New Discharge Prescriptions: No Action Cholecalciferol [Vitamin D3] 2,000 unit PO DAILY Calcitriol [Rocaltrol] 0.25 mcg PO DAILY Cyanocobalamin [Vitamin B-12] 500 mcg PO DAILY Tamsulosin [Flomax] 0.4 mg PO DAILY Simvastatin [Zocor] 40 mg PO HS Metoprolol Tartrate [Lopressor] 25 mg PO BID Ferrous Sulfate [Feosol] 325 mg PO BID Sennosides [Senna] 8.6 mg PO HS PRN PRN Reason: Constipation Acetaminophen Tab [Tylenol Tab] 650 mg PO Q6H PRN PRN Reason: Pain Divalproex Sodium [Divalproex Sodium ER] 1,000 mg PO DAILY Insulin Aspart [NovoLOG Flexpen] 5 units SQ AC-TID Polyethylene Glycol 3350 [Miralax] 17 gm PO DAILY Discharge Medication List Calcitriol [Rocaltrol] 0.25 mcg PO DAILY 12/29/16 [History] Cholecalciferol [Vitamin D3] 2,000 unit PO DAILY 12/29/16 [History] Cyanocobalamin [Vitamin B-12] 500 mcg PO DAILY 12/29/16 [History] Ferrous Sulfate [Feosol] 325 mg PO BID 12/29/16 [History] Metoprolol Tartrate [Lopressor] 25 mg PO BID 12/29/16 [History] Simvastatin [Zocor] 40 mg PO HS 12/29/16 [History] Tamsulosin [Flomax] 0.4 mg PO DAILY 12/29/16 [History] Acetaminophen Tab [Tylenol Tab] 650 mg PO Q6H PRN 03/19/19 [History] Divalproex Sodium [Divalproex Sodium ER] 1,000 mg PO DAILY 03/19/19 [History] Insulin Aspart [NovoLOG Flexpen] 5 units SQ AC-TID 03/19/19 [History] Polyethylene Glycol 3350 [Miralax] 17 gm PO DAILY 03/19/19 [History] Sennosides [Senna] 8.6 mg PO HS PRN 03/19/19 [History] Follow up Appointment(s)/Referral(s): Kolby Mcnulty MD [Medical Doctor] - As Needed Corinna Barrera III, MD [Primary Care Provider] - 1-2 days
[2019-03-24 17:01] LABS: Glucose,Whole Blood 156 mg/dL (75-99)
[2019-03-24 17:09] LABS: Anisocytosis Slight; Basophils % (A) 0 %; Eosinophils # (A) 0.1 k/uL (0-0.7); Eosinophils % (A) 2 %; HCT 32.2 % (39.0-53.0); HGB 9.8 gm/dL (13.0-17.5); Hypochromasia Marked; Lymphocytes # (A) 0.5 k/uL (1.0-4.8); Lymphocytes % (A) 19 %; MCH 33.9 pg (25.0-35.0); MCHC 30.4 g/dL (31.0-37.0); MCV 111.3 fL (80.0-100.0); Macrocytosis Marked; Monocytes # (A) 0.2 k/uL (0-1.0); Monocytes % (A) 7 %; Neutrophils # (A) 1.9 k/uL (1.3-7.7); Neutrophils % (A) 70 %; RBC 2.89 m/uL (4.30-5.90); RDW 16.7 % (11.5-15.5); WBC 2.7 k/uL (3.8-10.6)
[2019-03-24 17:13] LABS: Mean Platelet Volume 9.2; Platelet Count 84 k/uL (150-450)
[2019-03-24 17:24] VITALS: PULSE 110
[2019-03-24 17:25] VITALS: BP 113/73; RESP 18; TEMP 98
[2019-03-24 17:40] LABS: Polychromasia Present
== END 2019-03-24 18:38 | disposition short-term general hospital (02) | DRG 444 ==
LOC: EC 09:50 → 3NMEDONC 13:34 → 3SCARD 03-24 15:00
PROVIDERS: ADMIT Hospitalist; ATTEND Hospitalist
PROC: 0DJ08ZZ Inspection of Upper Intestinal Tract, Via Natural or Artificial Opening Endoscopic (ICD-10-PCS; principal; 2019-03-24 07:30)
DX: K81.1 Chronic cholecystitis (principal); E43 Unspecified severe protein-calorie malnutrition; K82.1 Hydrops of gallbladder; N39.0 Urinary tract infection, site not specified; R18.8 Other ascites; D61.818 Other pancytopenia; T83.84XA Pain due to genitourinary prosthetic devices, implants and grafts, initial encounter; Z68.1 Body mass index [BMI] 19.9 or less, adult; K76.9 Liver disease, unspecified; K83.8 Other specified diseases of biliary tract; I25.10 Atherosclerotic heart disease of native coronary artery without angina pectoris; I48.91 Unspecified atrial fibrillation; I25.2 Old myocardial infarction; E11.22 Type 2 diabetes mellitus with diabetic chronic kidney disease; I12.9 Hypertensive chronic kidney disease with stage 1 through stage 4 chronic kidney disease, or unspecified chronic kidney disease; N18.9 Chronic kidney disease, unspecified; E78.5 Hyperlipidemia, unspecified; E87.8 Other disorders of electrolyte and fluid balance, not elsewhere classified; Y84.6 Urinary catheterization as the cause of abnormal reaction of the patient, or of later complication, without mention of misadventure at the time of the procedure; Z79.4 Long term (current) use of insulin; Z79.899 Other long term (current) drug therapy; Z82.5 Family history of asthma and other chronic lower respiratory diseases; Z85.51 Personal history of malignant neoplasm of bladder; Z87.891 Personal history of nicotine dependence; Z95.5 Presence of coronary angioplasty implant and graft; R31.9 Hematuria, unspecified; Z98.41 Cataract extraction status, right eye
CPT/HCPCS: 36415; 43260; 74183; 74330; 76705; 80053; 80074; 81001; 82103; 82105; 82150; 82378; 82390; 82607; 82746; 83036; 83516; 83540; 83550; 83605; 83690; 84165; 85025; 85610; 85730; 86038; 86376; 87040; 87077; 87086; 87186; 96360; 96374; 99285

== ENCOUNTER 2019-04-03 14:10 | Inpatient (IN) | payer MEDICARE, OTHER ==
[2019-04-03] MEDS ORDERED: SODIUM CHLORIDE 0.9% 1,000 ML IV STA (14:34)
--- NOTE | 2019-04-03 14:35 | ED ---
Male Urogenital HPI - General Chief complaint: Urogenital Stated complaint: Edema Time Seen by Provider: 04/03/19 14:34 Source: family, RN notes reviewed, old records reviewed Mode of arrival: wheelchair - History of Present Illness Initial comments: This is a 78-year-old male the ER for evaluation presents today for evaluation of multiple medical complaints multiple medical problems according days as of late. Patient has long inpatient hospitalizations for multiple different reasons recently. Feels weak feels lightheaded dizzy. Patient also complaining of pain. Trachea is decreased Roemro catheter output with no abdominal pain, patient is also poor strain history obtained by family member at bedside. Patient said he recently had surgery with stent placed and pancreatic duct. Patient is had multiple different laboratory abnormalities, severe. The most part patient himself denies complaint MD Complaint: other (Decreased urinary output) -: days(s) Severity: mild Consistency: constant Improves with: none Worsens with: none recent surgery Reports: nausea/vomiting - Related Data Home Medications Medication Instructions Recorded Confirmed Calcitriol [Rocaltrol] 0.25 mcg PO Q48H 12/29/16 04/03/19 Cholecalciferol [Vitamin D3] 2,000 unit PO DAILY 12/29/16 04/03/19 Ferrous Sulfate [Feosol] 325 mg PO BID 12/29/16 04/03/19 Metoprolol Tartrate [Lopressor] 12.5 mg PO BID 12/29/16 04/03/19 Simvastatin [Zocor] 40 mg PO HS 12/29/16 04/03/19 Tamsulosin [Flomax] 0.4 mg PO DAILY 12/29/16 04/03/19 Acetaminophen Tab [Tylenol Tab] 650 mg PO Q6H PRN 03/19/19 04/03/19 Divalproex Sodium [Divalproex 1,000 mg PO DAILY 03/19/19 04/03/19 Sodium ER] Insulin Aspart [NovoLOG Flexpen] 5 units SQ AC-TID 03/19/19 04/03/19 Polyethylene Glycol 3350 [Miralax] 17 gm PO DAILY PRN 03/19/19 04/03/19 Sennosides [Senna] 8.6 mg PO HS PRN 03/19/19 04/03/19 Cyanocobalamin (Vitamin B-12) 1,000 mcg PO DAILY 04/03/19 04/03/19 [Vitamin B-12] Dulaglutide [Trulicity] 0.75 mg SQ Q7D 04/03/19 04/03/19 Glucerna Shake 1 can PO BID 04/03/19 04/03/19 NIFEdipine [NIFEdipine ER] 30 mg PO DAILY 04/03/19 04/03/19 Pantoprazole Sodium [Protonix] 40 mg PO DAILY 04/03/19 04/03/19 Allergies Allergy/AdvReac Type Severity Reaction Status Date / Time lithium Allergy Unknown Verified 04/03/19 14:50 Review of Systems ROS Statement: Those systems with pertinent positive or pertinent negative responses have been documented in the HPI. ROS Other: All systems not noted in ROS Statement are negative. Past Medical History Past Medical History: Cancer, Diabetes Mellitus, Hyperlipidemia, Hypertension, Myocardial Infarction ([place]) Additional Past Medical History / Comment(s): Mental handicap-approx capacity at age 9.,bladder Ca approx 2013,elevated potassium Last Myocardial Infarction Date:: 2009 History of Any Multi-Drug Resistant Organisms: None Reported Past Surgical History: Heart Catheterization With Stent Additional Past Surgical History / Comment(s): bladder tumors removed; Cataract R eye, stent place in pancreatic duct Past Anesthesia/Blood Transfusion Reactions: No Reported Reaction Date of Last Stent Placement:: 2009 Past Psychological History: No Psychological Hx Reported Smoking Status: Former smoker Past Alcohol Use History: None Reported Past Drug Use History: None Reported - Past Family History Father Family Medical History: Cancer Additional Family Medical History / Comment(s): lung Mother Family Medical History: COPD Additional Family Medical History / Comment(s): bowel surgeries General Exam General appearance: alert, in no apparent distress Head exam: Present: atraumatic, normocephalic, normal inspection Eye exam: Present: normal appearance, PERRL, EOMI. Absent: scleral icterus, conjunctival injection, periorbital swelling ENT exam: Present: normal exam, mucous membranes moist Neck exam: Present: normal inspection. Absent: tenderness, meningismus, lymphadenopathy Respiratory exam: Present: normal lung sounds bilaterally. Absent: respiratory distress, wheezes, rales, rhonchi, stridor Cardiovascular Exam: Present: regular rate, normal rhythm, normal heart sounds. Absent: systolic murmur, diastolic murmur, rubs, gallop, clicks GI/Abdominal exam: Present: soft, normal bowel sounds. Absent: distended, tenderness, guarding, rebound, rigid Extremities exam: Present: normal inspection, full ROM, normal capillary refill. Absent: tenderness, pedal edema, joint swelling, calf tenderness Back exam: Present: normal inspection Neurological exam: Present: alert, oriented X3, CN II-XII intact Psychiatric exam: Present: normal affect, normal mood Skin exam: Present: warm, dry, intact, normal color. Absent: rash Course Vital Signs 04/03/19 14:25 Temperature 96.5 F L Pulse Rate 51 L Respiratory 18 Rate Blood Pressure 100/53 O2 Sat by Pulse 97 Oximetry - Reevaluation(s) Reevaluation #1: Medical records reviewed Spoke with family members at length regarding medical concerns patient has bladder scan which shows 100 mL and Romero no significant retention Patient remains without complaint, no blood noted in his stools Medical Decision Making - Medical Decision Making 78 male the ER for evaluation, patient presented for weakness decreased urinary output without to be significantly anemic, will admit for cause of anemia, Romero has diminished output although no evidence of retention patient has elevated liver enzymes but are improved from prior - Lab Data Result diagrams: 04/05/19 06:24 04/05/19 06:24 Lab Results 04/03/19 04/03/19 04/03/19 Range/Units 14:50 14:50 14:50 WBC 3.8 (3.8-10.6) k/uL RBC 2.20 L (4.30-5.90) m/uL Hgb 7.6 L D (13.0-17.5) gm/dL Hct 24.8 L (39.0-53.0) % MCV 112.9 H (80.0-100.0) fL MCH 34.4 (25.0-35.0) pg MCHC 30.5 L (31.0-37.0) g/dL RDW 20.7 H (11.5-15.5) % Plt Count 139 L D (150-450) k/uL Neutrophils % (Manual) 69 % Band Neutrophils % 1 % Lymphocytes % (Manual) 17 % Monocytes % (Manual) 13 % Neutrophils # (Manual) 2.60 (1.3-7.7) k/uL Lymphocytes # (Manual) 0.65 L (1.0-4.8) k/uL Monocytes # (Manual) 0.49 (0-1.0) k/uL Nucleated RBCs 0 (0-0) /100 WBC Manual Slide Review Performed Polychromasia Present Hypochromasia Marked Hypochromasia (manual) Present Anisocytosis Moderate Anisocytosis (manual) Present Macrocytosis Marked A Stomatocytes Present PT 11.1 (9.0-12.0) sec INR 1.0 (<1.2) APTT 25.9 (22.0-30.0) sec Sodium 139 (137-145) mmol/L Potassium 5.1 (3.5-5.1) mmol/L Chloride 108 H (98-107) mmol/L Carbon Dioxide 25 (22-30) mmol/L Anion Gap 6 mmol/L BUN 32 H (9-20) mg/dL Creatinine 1.48 H (0.66-1.25) mg/dL Est GFR (CKD-EPI)AfAm 53 (>60 ml/min/1.73 sqM) Est GFR (CKD-EPI)NonAf 45 (>60 ml/min/1.73 sqM) Glucose 78 (74-99) mg/dL Calcium 7.7 L (8.4-10.2) mg/dL Phosphorus 3.5 (2.5-4.5) mg/dL Magnesium 2.1 (1.6-2.3) mg/dL Total Bilirubin 1.6 H (0.2-1.3) mg/dL AST 82 H (17-59) U/L ALT 146 H (21-72) U/L Alkaline Phosphatase 1082 H (38-126) U/L Total Protein 4.5 L (6.3-8.2) g/dL Albumin 2.3 L (3.5-5.0) g/dL Urine Color Urine Appearance (Clear) Urine pH (5.0-8.0) Ur Specific Kimberly (1.001-1.035) Urine Protein (Negative) Urine Glucose (UA) (Negative) Urine Ketones (Negative) Urine Blood (Negative) Urine Nitrite (Negative) Urine Bilirubin (Negative) Urine Urobilinogen (<2.0) mg/dL Ur Leukocyte Esterase (Negative) Urine RBC (0-5) /hpf Urine WBC (0-5) /hpf Urine Bacteria (None) /hpf Urine Mucus (None) /hpf 04/03/19 Range/Units 14:50 WBC (3.8-10.6) k/uL RBC (4.30-5.90) m/uL Hgb (13.0-17.5) gm/dL Hct (39.0-53.0) % MCV (80.0-100.0) fL MCH (25.0-35.0) pg MCHC (31.0-37.0) g/dL RDW (11.5-15.5) % Plt Count (150-450) k/uL Neutrophils % (Manual) % Band Neutrophils % % Lymphocytes % (Manual) % Monocytes % (Manual) % Neutrophils # (Manual) (1.3-7.7) k/uL Lymphocytes # (Manual) (1.0-4.8) k/uL Monocytes # (Manual) (0-1.0) k/uL Nucleated RBCs (0-0) /100 WBC Manual Slide Review Polychromasia Hypochromasia Hypochromasia (manual) Anisocytosis Anisocytosis (manual) Macrocytosis Stomatocytes PT (9.0-12.0) sec INR (<1.2) APTT (22.0-30.0) sec Sodium (137-145) mmol/L Potassium (3.5-5.1) mmol/L Chloride (98-107) mmol/L Carbon Dioxide (22-30) mmol/L Anion Gap mmol/L BUN (9-20) mg/dL Creatinine (0.66-1.25) mg/dL Est GFR (CKD-EPI)AfAm (>60 ml/min/1.73 sqM) Est GFR (CKD-EPI)NonAf (>60 ml/min/1.73 sqM) Glucose (74-99) mg/dL Calcium (8.4-10.2) mg/dL Phosphorus (2.5-4.5) mg/dL Magnesium (1.6-2.3) mg/dL Total Bilirubin (0.2-1.3) mg/dL AST (17-59) U/L ALT (21-72) U/L Alkaline Phosphatase (38-126) U/L Total Protein (6.3-8.2) g/dL Albumin (3.5-5.0) g/dL Urine Color Yellow Urine Appearance Clear (Clear) Urine pH 5.5 (5.0-8.0) Ur Specific Kimberly 1.018 (1.001-1.035) Urine Protein Trace H (Negative) Urine Glucose (UA) Negative (Negative) Urine Ketones Negative (Negative) Urine Blood Negative (Negative) Urine Nitrite Negative (Negative) Urine Bilirubin Negative (Negative) Urine Urobilinogen <2.0 (<2.0) mg/dL Ur Leukocyte Esterase Trace H (Negative) Urine RBC 2 (0-5) /hpf Urine WBC 4 (0-5) /hpf Urine Bacteria Rare H (None) /hpf Urine Mucus Rare H (None) /hpf - Radiology Data Radiology results: report reviewed (CT abdomen pelvis shows ascites with no significant acute findings), image reviewed Disposition Clinical Impression: Elevated liver enzymes, Cognitive developmental delay, Edema of both lower extremities, Anasarca, ARF (acute renal failure), Anemia, GI bleed Disposition: ADMITTED IP TO THIS [facility] Condition: Fair Is patient prescribed a controlled substance at d/c from ED?: No
[2019-04-03 15:09] LABS: Anisocytosis Moderate; HCT 24.8 % (39.0-53.0); Hypochromasia Marked; MCH 34.4 pg (25.0-35.0); MCHC 30.5 g/dL (31.0-37.0); MCV 112.9 fL (80.0-100.0); Macrocytosis Marked; Mean Platelet Volume 9.7; RDW 20.7 % (11.5-15.5); WBC 3.8 k/uL (3.8-10.6)
[2019-04-03 15:11] LABS: Appearance,Urine Clear (Clear); Bacteria,Urine Rare /hpf; Bilirubin,Urine Negative (Negative); Blood,Urine Negative (Negative); Color,Urine Yellow; Glucose,Urine (UA) Negative (Negative); Ketones,Urine Negative (Negative); Leukocyte Esterase,Urine Trace (Negative); Mucus,Urine Rare /hpf; Nitrite,Urine Negative (Negative); PH, Urine 5.5 (5.0-8.0); Protein,Urine Trace (Negative); RBC,Urine 2 /hpf (0-5); Specific Gravity,Urine 1.018 (1.001-1.035); Urobilinogen,Urine <2.0 mg/dL (<2.0); WBC,Urine 4 /hpf (0-5)
[2019-04-03 15:18] LABS: Partial Thromboplastin Time 25.9 sec (22.0-30.0); Prothrombin Time 11.1 sec (9.0-12.0)
[2019-04-03 15:23] LABS: Albumin 2.3 g/dL (3.5-5.0); Calcium 7.7 mg/dL (8.4-10.2); Magnesium 2.1 mg/dL (1.6-2.3); Phosphorus 3.5 mg/dL (2.5-4.5); Potassium 5.1 mmol/L (3.5-5.1); Total Bilirubin 1.6 mg/dL (0.2-1.3); Total Protein 4.5 g/dL (6.3-8.2)
[2019-04-03 15:25] LABS: HGB 7.6 gm/dL (13.0-17.5); Platelet Count 139 k/uL (150-450)
[2019-04-03 16:03] LABS: Anisocytosis (M) Present; Band Neutrophils % 1 %; Hypochromasia (M) Present; Lymphocytes # (M) 0.65 k/uL (1.0-4.8); Monocytes # (M) 0.49 k/uL (0-1.0); Neutrophils % (M) 69 %; Nucleated Red Blood Cells 0 /100 WBC (0-0); Polychromasia Present; Stomatocytes Present; Total Cells Counted 100
[2019-04-03] MEDS ORDERED: SODIUM CHLORIDE 0.9% 1,000 ML IV ONE (16:09)
[2019-04-03] MEDS ORDERED: ACETAMINOPHEN TAB 325 MG TAB PO PRN (19:35)
[2019-04-03] MEDS ORDERED: SENNOSIDES 8.6 MG TAB PO PRN (19:35)
[2019-04-03] MEDS ORDERED: POLYETHYLENE GLYCOL 3350 17 GM POWD.PACK PO PRN (19:35)
[2019-04-03] MEDS ORDERED: ALPRAZolam 0.25 MG TAB PO PRN (19:38)
[2019-04-03] MEDS ORDERED: TEMAZEPAM 15 MG CAP PO PRN (19:38)
[2019-04-03] MEDS ORDERED: DULAGLUTIDE 0.75 MG SQ SCH (19:45)
[2019-04-03] MEDS: IOPAMIDOL CONTRAST (ORAL USE) VIAL PO PRN ×2 (20:22→21:08)
[2019-04-03] MEDS: METOPROLOL TARTRATE 12.5 MG TAB PO SCH (22:12)
--- NOTE | 2019-04-03 22:12 | CT ---
EXAMINATION TYPE: CT abdomen pelvis wo con DATE OF EXAM: 04/03/2019 COMPARISON: None HISTORY: Elevated LFT CT DLP: 439.9 mGycm Automated exposure control for dose reduction was used. TECHNIQUE: Helical acquisition of images was performed from the lung bases through the pelvis. FINDINGS: There are moderate bilateral pleural effusions. There is a large amount of air in the biliary tree. T here is mild ectasia of the biliary tree. There is moderate abdominal ascites. There is Romero cathete r in the urinary bladder. Bladder is almost empty. There is no evidence of a mechanical bowel obstruc tion. There is oral contrast in small bowel. There is no sign of pneumoperitoneum. The lumbar vertebra have normal alignment. Posterior elements are intact. Lumbar disc spaces are leo rowed.. The bony pelvis is intact. There is extensive atherosclerotic vascular calcification. There i s some multilevel lumbar disc herniation and spinal stenosis. There are multiple calcifications in the kidneys consistent with vascular disease. There is no hydron ephrosis. Kidneys have fairly normal size. There is no sign of retroperitoneal adenopathy. There is i ncreased subcutaneous density around the abdomen suggestive of anasarca. IMPRESSION: MODERATE ASCITES. MODERATE SIZE BILATERAL PLEURAL EFFUSIONS. BASILAR ATELECTASIS. EXTENSIVE ATHEROSCL EROTIC VASCULAR DISEASE. BILIARY AIR CONSISTENT WITH REFLUX. NO EVIDENCE OF A BOWEL OBSTRUCTION.
--- NOTE | 2019-04-04 | HP ---
HISTORY AND PHYSICAL CHIEF COMPLAINT: Possible GI bleed. HISTORY OF PRESENT ILLNESS: This 78-year-old gentleman with a past medical history of multiple medical problems including diabetes, hypertension, myocardial infarction, history of mentally handicapped, history of bladder cancer, history of CAD/stent being followed by Dr. Barrera in the outpatient setting, was brought to the [facility] Emergency room with complaints of weakness. The patient was living in a prison. The patient was brought to the hospital with complaints of weakness. Hemoglobin found to be 7.6. Patient also had bilateral leg edema and the patient admitted to the hospital for further evaluation and treatment with suspicion of GI bleed. The platelets of 139 and the LFTs also elevated. There is no history of any fever, rigor or chills. No history of any trauma. A detailed history could not be taken from the patient because of the patient's baseline mental status. Most of the history taken from my discussion with staff and review of the chart at this time and the ER notes. The patient is being followed by Dr. Barrera in the outpatient setting. PAST MEDICAL HISTORY: Diabetes, hypertension, hyperlipidemia, myocardial infarction, mental handicap, history of CAD stent, history of smoking. MEDICATIONS: Prior to admission include: 1. Flomax 0.4 daily. 2. Zocor 40 mg q.h.s. 3. Senna 8.6 q.h.s. 4. MiraLAX 17 grams daily p.r.n. 5. Protonix 40 mg daily. 6. Nifedipine ER 30 mg p.o. daily. 7. Lopressor 12.5 mg p.o. b.i.d. 8. NovoLog 5 units a.c. t.i.d. 9. Glucerna shake 1 b.i.d. 10.Iron sulfate 325 mg p.o. b.i.d. 11.Trulicity 0.7 and 70 mg p.o. Q 7 days. 12.Depakote sodium 1000 mg p.o. daily. 13.Vitamin B12 1000 mcg p.o. 14.Vitamin D3 2000 daily. 15.Rocaltrol 0.5 mg q48 hours 1 Tylenol p.r.n. ALLERGIES: LITHIUM. FAMILY HISTORY: History of lung cancer in the family. SOCIAL HISTORY: Previous history of smoking. No history of alcohol intake. REVIEW OF SYSTEMS: ENT: Diminished vision. Diminished hearing. CARDIOVASCULAR: No angina or palpitations. RESPIRATIONS: No cough. GI mentioned earlier. No active bleeding. no dysuria or hematuria. NERVOUS SYSTEM: As mentioned earlier. ALLERGY/IMMUNOLOGY: No asthma or hayfever. MUSCULOSKELETAL as mentioned earlier. HEMATOLOGY/ONCOLOGY mentioned earlier. ENDOCRINE: No history of diabetes or hypothyroidism. CONSTITUTIONAL: As mentioned earlier. DERMATOLOGY negative. RHEUMATOLOGY: Colon is negative. PSYCHIATRY as mentioned earlier. PHYSICAL EXAM: Patient is alert, oriented x1. Pulse 88, blood pressure 109/64, respiration 18, temperature 97.9, pulse ox 98% on room air. HEENT is conjunctivae pale. Oral mucosa moist. NECK is no jugular venous distention. No carotid bruit. No lymph node enlargement. CARDIOVASCULAR: S1, S2 muffled. No S3, no S4. RESPIRATORY: Breath sounds diminished in the bases. A few scattered rhonchi and crackles. ABDOMEN: Soft, obese, nontender. No mass palpable. LEGS: Minimal edema. Nervous system as mentioned earlier. Moves all 4 limbs. No focal deficit weakness noted. LYMPHATICS: Lymphatics: No lymph nodes palpable in the neck, axillae or groin. JOINTS: No active deforming arthropathy. LABS: WBC 3.8, hemoglobin 7.6 and sodium 139, potassium 5.1, creatinine is 1.48. Total bilirubin is 1.6, AST, ALT 82, 147, alkaline phosphatase 1082. ASSESSMENT: 1. Weakness, anemia for evaluation, rule out GI bleed. 2. Elevated LFTs, rule out extrahepatic biliary obstruction. 3. Increased creatinine with mild acute renal failure. 4. Thrombocytopenia of undetermined etiology. 5. Diabetes mellitus type 2. 6. Hypertension. 7. History of myocardial infarction. 8. History mentally and mental handicap. 9. History of CAD stent. 10.History of cataracts. 11.History of nicotine dependence. 12.FULL CODE. RECOMMENDATIONS AND DISCUSSION: This 78-year-old gentleman who presented with multiple complex medical issues, we will monitor the patient closely continue the current medications. Exact etiology of symptoms and anemia is unknown at this time I recommend repeat labs and also recommend a CT scan of the abdomen and pelvis and chest also to rule out the possibility of any extrahepatic biliary obstruction. Otherwise, we will continue to monitor liver enzymes. Gastroenterology consultation for further evaluation. Watch for any active bleeding. Otherwise, prognosis guarded because of multiple complex medical issues. Further recommendations to follow. All charts reviewed and medication reconciliation will be done. Discuss with staff, and copy of this forwarded to Dr. Barrera who is the primary care physician. MMODL / IJN: [id number] /
[2019-04-04 07:02] LABS: Glucose,Whole Blood 178 mg/dL (75-99)
[2019-04-04] MEDS: PANTOPRAZOLE 40 MG TABLET PO SCH (07:48)
[2019-04-04] MEDS: TAMSULOSIN 0.4 MG CAP.ER.24H PO SCH (07:48)
[2019-04-04] MEDS: NIFEdipine XL 30 MG TAB.ER.24 PO SCH (07:48)
[2019-04-04] MEDS: METOPROLOL TARTRATE 12.5 MG TAB PO SCH ×2 (07:49→21:19)
[2019-04-04] MEDS: INSULIN ASPART (NovoLOG) 100 UNIT/ML VIAL SQ SCH ×4 (07:49→21:16)
[2019-04-04] MEDS: DIVALPROEX ER 500 MG TAB.ER.24H PO SCH (07:49)
[2019-04-04 08:18] LABS: Calcium 8.1 mg/dL (8.4-10.2); Potassium 5.1 mmol/L (3.5-5.1)
[2019-04-04 08:44] LABS: Anisocytosis Moderate; Basophils % (A) 0 %; Eosinophils # (A) 0.1 k/uL (0-0.7); Eosinophils % (A) 2 %; HCT 29.1 % (39.0-53.0); HGB 8.6 gm/dL (13.0-17.5); Hypochromasia Marked; Lymphocytes # (A) 1.3 k/uL (1.0-4.8); Lymphocytes % (A) 38 %; MCH 34.1 pg (25.0-35.0); MCHC 29.7 g/dL (31.0-37.0); MCV 114.7 fL (80.0-100.0); Macrocytosis Marked; Mean Platelet Volume 9.3; Monocytes # (A) 0.2 k/uL (0-1.0); Monocytes % (A) 5 %; Neutrophils # (A) 1.8 k/uL (1.3-7.7); Neutrophils % (A) 53 %; Platelet Count 158 k/uL (150-450); RBC 2.54 m/uL (4.30-5.90); RDW 20.6 % (11.5-15.5); WBC 3.4 k/uL (3.8-10.6)
[2019-04-04 11:29] LABS: Glucose,Whole Blood 253 mg/dL (75-99)
[2019-04-04 11:30] LABS: Basophilic Stippling Present; Poikilocytosis (M) Present; Polychromasia Present; Target Cells Present
--- NOTE | 2019-04-04 11:56 | P.CONS ---
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 Patient was transferred to [facility] less than 2 weeks ago for worsening liver function tests. MRI of the liver within the last few weeks reported intra-and extra hepatic biliary dilatation. ERCP was attempted 10 days ago on 03/24/2019 but unsuccessful therefore he was sent [facility] for further evaluation and treatment. Prior to discharge patient's total bilirubin was 2.1. AST 47. ALT 301. Alkaline phosphatase 1450. INR 1.2. Medical records are [facility] or not available during this consultation and family is not at bedside however nursing reports receiving information and possibly a biliary stent was placed. Currently his total bilirubin is 1.6. AST is 82. ALT 146. AP 1082. INR 1.0. Patient has worsening anasarca lower extremity edema. BUN 32. Creatinine 1.4. Hemoglobin 7.6 previously 9.8. Currently 8.6. MCV 114. Platelet 158. Hepatitis screen nonreactive. Her nursing no reports of hematemesis hematochezia or melena. Romero catheter is inserted with clear akila urine. CT of the abdomen and pelvis reported moderate ascites bilateral pleural effusions. Large amount of air in the biliary tree mild ectasia of the biliary tree. No pneumoperitoneum. AMA 82.5. DANILO negative. ASMA 8. AFP 4.4. CEA 12.3. Alpha 1 anti-trypsin 219. Ceruloplasmin 38.6. Review of Systems Constitutional: Denies fever, chills, sweats, weight gain, or loss. HEENT: Negative for migraines, blurred vision or loss, earaches, drainage, tinnitus, oral mucosal lesions, dysphagia, or odynophagia. Cardiac: Negative for chest pain, arrhythmias, or palpitation. Respiratory: Negative for shortness of breath, hemoptysis, cough, or sputum production. Gastrointestinal: See HPI for pertinent findings. Genitourinary: Negative for hematuria, urgency, frequency, polyuria, dysuria, or penile discharge. Musculoskeletal: Negative for muscle aches, swelling, arthritis, and arthralgias. Neurologic: Negative for stroke or TIA. Endocrine: Negative for thyroid problems. Skin: Negative for rash or itching. Psychiatric: Negative history for depression and anxiety Past Medical History Past Medical History: Cancer, Diabetes Mellitus, Hyperlipidemia, Hypertension, Myocardial Infarction (CT) Additional Past Medical History / Comment(s): Mental handicap-approx capacity at age 9.,bladder Ca approx 2013,elevated potassium Last Myocardial Infarction Date:: 2009 History of Any Multi-Drug Resistant Organisms: None Reported Past Surgical History: Heart Catheterization With Stent Additional Past Surgical History / Comment(s): bladder tumors removed; Cataract R eye, stent place in pancreatic duct Past Anesthesia/Blood Transfusion Reactions: No Reported Reaction Date of Last Stent Placement:: 2009 Past Psychological History: No Psychological Hx Reported Additional Psychological History / Comment(s): mentally handicapped Smoking Status: Former smoker Past Alcohol Use History: None Reported Additional Past Alcohol Use History / Comment(s): quit smoking 2009,1ppd Past Drug Use History: None Reported - Past Family History Father Family Medical History: Cancer Additional Family Medical History / Comment(s): lung Mother Family Medical History: COPD Additional Family Medical History / Comment(s): bowel surgeries Medications and Allergies Home Medications Medication Instructions Recorded Confirmed Type Calcitriol [Rocaltrol] 0.25 mcg PO Q48H 12/29/16 04/03/19 History Cholecalciferol [Vitamin D3] 2,000 unit PO DAILY 12/29/16 04/03/19 History Ferrous Sulfate [Feosol] 325 mg PO BID 12/29/16 04/03/19 History Metoprolol Tartrate [Lopressor] 12.5 mg PO BID 12/29/16 04/03/19 History Simvastatin [Zocor] 40 mg PO HS 12/29/16 04/03/19 History Tamsulosin [Flomax] 0.4 mg PO DAILY 12/29/16 04/03/19 History Acetaminophen Tab [Tylenol Tab] 650 mg PO Q6H PRN 03/19/19 04/03/19 History Divalproex Sodium [Divalproex 1,000 mg PO DAILY 03/19/19 04/03/19 History Sodium ER] Insulin Aspart [NovoLOG Flexpen] 5 units SQ AC-TID 03/19/19 04/03/19 History Polyethylene Glycol 3350 [Miralax] 17 gm PO DAILY PRN 03/19/19 04/03/19 History Sennosides [Senna] 8.6 mg PO HS PRN 03/19/19 04/03/19 History Cyanocobalamin (Vitamin B-12) 1,000 mcg PO DAILY 04/03/19 04/03/19 History [Vitamin B-12] Dulaglutide [Trulicity] 0.75 mg SQ Q7D 04/03/19 04/03/19 History Glucerna Shake 1 can PO BID 04/03/19 04/03/19 History NIFEdipine [NIFEdipine ER] 30 mg PO DAILY 04/03/19 04/03/19 History Pantoprazole Sodium [Protonix] 40 mg PO DAILY 04/03/19 04/03/19 History Allergies Allergy/AdvReac Type Severity Reaction Status Date / Time lithium Allergy Unknown Verified 04/03/19 14:50 Physical Exam Vitals: Vital Signs Temp Pulse Pulse Resp BP BP Pulse Ox 04/04/19 08:00 63 17 04/04/19 07:00 98.3 F 63 17 166/78 96 04/04/19 01:27 96.5 F L 45 L 18 163/72 96 04/03/19 20:35 96.6 F L 57 L 16 141/61 95 04/03/19 17:15 57 L 16 120/67 96 04/03/19 16:50 97.9 F 88 18 109/65 96 04/03/19 14:25 96.5 F L 51 L 18 100/53 97 Intake and Output 04/03/19 04/04/19 04/04/19 22:59 06:59 14:59 Intake Total 420 180 Output Total 150 925 Balance 270 -925 180 Intake: Oral 420 180 Output: Urine 150 925 Other: Voiding Method Indwelling Catheter Indwelling Catheter Indwelling Catheter # Bowel Movements 1 General appearance: The patient is alert, oriented, in no acute distress. No vi sible jaundice. HET: Head is normocephalic and atraumatic. Pupils are equal and reactive. Oropharynx is clear without lesions. Neck: Supple without lymphadenopathy. Trachea midline. Heart: S1 S2. Regular rate and rhythm. Lungs: No crackles or wheezes are heard. Abdomen: Soft, ascites appreciated on exam diffuse anasarca. nontender, nondistended with bowel sounds. No peritoneal signs. No palpable organomegaly or masses. Extremities: Diffuse anasarca. Romero with clear akila urine. Neurological: No focal deficits. Strength and sensation are grossly intact. Results CBC & Chem 7: 04/05/19 06:24 04/05/19 06:24 Labs: Abnormal Lab Results - Last 24 Hours (Table) 04/03/19 04/03/19 04/03/19 Range/Units 14:50 14:50 14:50 WBC (3.8-10.6) k/uL RBC 2.20 L (4.30-5.90) m/uL Hgb 7.6 L D (13.0-17.5) gm/dL Hct 24.8 L (39.0-53.0) % MCV 112.9 H (80.0-100.0) fL MCHC 30.5 L (31.0-37.0) g/dL RDW 20.7 H (11.5-15.5) % Plt Count 139 L D (150-450) k/uL Lymphocytes # (Manual) 0.65 L (1.0-4.8) k/uL Macrocytosis Marked A Chloride 108 H (98-107) mmol/L BUN 32 H (9-20) mg/dL Creatinine 1.48 H (0.66-1.25) mg/dL Glucose (74-99) mg/dL POC Glucose (mg/dL) (75-99) mg/dL Calcium 7.7 L (8.4-10.2) mg/dL Total Bilirubin 1.6 H (0.2-1.3) mg/dL AST 82 H (17-59) U/L ALT 146 H (21-72) U/L Alkaline Phosphatase 1082 H (38-126) U/L Total Protein 4.5 L (6.3-8.2) g/dL Albumin 2.3 L (3.5-5.0) g/dL Urine Protein Trace H (Negative) Ur Leukocyte Esterase Trace H (Negative) Urine Bacteria Rare H (None) /hpf Urine Mucus Rare H (None) /hpf 04/04/19 04/04/19 04/04/19 Range/Units 07:01 07:24 07:24 WBC 3.4 L (3.8-10.6) k/uL RBC 2.54 L (4.30-5.90) m/uL Hgb 8.6 L (13.0-17.5) gm/dL Hct 29.1 L (39.0-53.0) % MCV 114.7 H (80.0-100.0) fL MCHC 29.7 L (31.0-37.0) g/dL RDW 20.6 H (11.5-15.5) % Plt Count (150-450) k/uL Lymphocytes # (Manual) (1.0-4.8) k/uL Macrocytosis Marked A Chloride (98-107) mmol/L BUN 28 H (9-20) mg/dL Creatinine 1.48 H (0.66-1.25) mg/dL Glucose 165 H (74-99) mg/dL POC Glucose (mg/dL) 178 H (75-99) mg/dL Calcium 8.1 L (8.4-10.2) mg/dL Total Bilirubin (0.2-1.3) mg/dL AST (17-59) U/L ALT (21-72) U/L Alkaline Phosphatase (38-126) U/L Total Protein (6.3-8.2) g/dL Albumin (3.5-5.0) g/dL Urine Protein (Negative) Ur Leukocyte Esterase (Negative) Urine Bacteria (None) /hpf Urine Mucus (None) /hpf 04/04/19 Range/Units 11:27 WBC (3.8-10.6) k/uL RBC (4.30-5.90) m/uL Hgb (13.0-17.5) gm/dL Hct (39.0-53.0) % MCV (80.0-100.0) fL MCHC (31.0-37.0) g/dL RDW (11.5-15.5) % Plt Count (150-450) k/uL Lymphocytes # (Manual) (1.0-4.8) k/uL Macrocytosis Chloride (98-107) mmol/L BUN (9-20) mg/dL Creatinine (0.66-1.25) mg/dL Glucose (74-99) mg/dL POC Glucose (mg/dL) 253 H (75-99) mg/dL Calcium (8.4-10.2) mg/dL Total Bilirubin (0.2-1.3) mg/dL AST (17-59) U/L ALT (21-72) U/L Alkaline Phosphatase (38-126) U/L Total Protein (6.3-8.2) g/dL Albumin (3.5-5.0) g/dL Urine Protein (Negative) Ur Leukocyte Esterase (Negative) Urine Bacteria (None) /hpf Urine Mucus (None) /hpf Microbiology - Last 24 Hours (Table) 04/03/19 14:50 Urine Culture - Preliminary Urine,Voided CT scan - abdomen: report reviewed (Dr. Wolfe) Assessment and Plan (1) Macrocytic anemia Narrative/Plan: 78-year-old gentleman admitted with acute macrocytic anemia without overt bleeding with development of ascites and acute kidney injury clinically no evidence of active GI bleed such as hematemesis hematochezia or melena. Underlying elevated liver enzymes and elevated antimitochondrial antibody raising the clinical suspicion of possible biliary cirrhosis. Recent [facility] tertiary care evaluation less than 10 days ago for ERCP with biliary stent placement. Current Visit: Yes Status: Acute Code(s): D53.9 - NUTRITIONAL ANEMIA, U NSPECIFIED SNOMED Code(s): 34928557 (2) Antimitochondrial antibody positive Current Visit: Yes Status: Acute Code(s): R76.8 - OTHER SPECIFIED ABNORMAL IMMUNOLOGICAL FINDINGS IN SERUM SNOMED Code(s): 708432350 (3) Elevated liver enzymes Current Visit: Yes Status: Acute Code(s): R74.8 - ABNORMAL LEVELS OF OTHER SERUM ENZYMES SNOMED Code(s): 305092050 (4) History of biliary stent insertion Current Visit: Yes Status: Acute Code(s): Z98.890 - OTHER SPECIFIED POSTPROCEDURAL STATES SNOMED Code(s): 383890522 (5) Cognitive developmental delay Current Visit: Yes Status: Acute Code(s): F81.9 - DEVELOPMENTAL DISORDER OF SCHOLASTIC SKILLS, UNSPECIFIED SNOMED Code(s): 672516563 (6) Atrial fibrillation Current Visit: Yes Status: Acute Code(s): I48.91 - UNSPECIFIED ATRIAL FIBRILLATION SNOMED Code(s): 36633427 Plan: 1. Daily monitoring of liver function tests. [facility] records were requested to be placed on chart for review. Will schedule diagnostic paracentesis. We'll follow closely with you. Inpatient EGD colonoscopy not planned at this time. Thank you for this kind referral and the opportunity to participate in the care of your patient. This consultation was discussed with Dr. Wolfe. The impression and plan of care have been directed as dictated.
--- NOTE | 2019-04-04 13:16 | US ---
EXAMINATION TYPE: US abdomen limited DATE OF EXAM: 04/04/2019 COMPARISON: CT CLINICAL HISTORY: please assess for fluid pocket. All four quadrants scanned, there is minimal ascites noted. Bilateral pleural effusions noted. IMPRESSION: 1. There is minimal ascites. 2. Bilateral pleural effusions
[2019-04-04 17:30] LABS: Glucose,Whole Blood 206 mg/dL (75-99)
--- NOTE | 2019-04-04 21:04 | PN ---
PROGRESS NOTE DATE OF SERVICE: 04/04/2019 This 78-year-old gentleman admitted with weakness and anemia apparently had a recent ERCP and stenting at [facility], results not available at this time. The CT scan showed significant ascites. Gastroenterology following the patient closely. Abdominal ultrasound was performed by Radiology, which showed minimal ascites and bilateral pleural effusion. No chest pain. No palpitations. No fever. PAST MEDICAL HISTORY: Reviewed. REVIEW OF SYSTEMS: CARDIOVASCULAR: No angina or palpitations. RESPIRATORY: As mentioned earlier. GI mentioned earlier. : As mentioned earlier. CENTRAL NERVOUS SYSTEM: No focal deficits. CURRENT MEDICATIONS: Reviewed and include: 1. Tylenol 650 q.6h p.r.n. 2. Xanax 0.5 t.i.d. 3. Depakote ER. 4. NovoLog. 5. Lopressor 12.5. 6. Procardia XL. 7. Protonix 40 mg. 8. MiraLAX. 9. Senokot. 10.Flomax. 11.Zestril. PHYSICAL EXAM: Patient is alert, oriented x3. The pulse is 51, blood pressure 135/67, respirations 16, temperature 98.4, pulse ox 94% on room air. HEENT: Conjunctivae normal. NECK: No jugular venous distention. CARDIOVASCULAR: S1, S2 muffled. RESPIRATORY: Breath sounds diminished in the bases. A few scattered rhonchi and crackles. ABDOMEN: Soft, obese, nontender. No mass palpable. No guarding. No rigidity. LEGS no edema. No swelling. NERVOUS SYSTEM: No focal deficits. LABS: WBC 3.5, hemoglobin is 8.6, otherwise glucose is 235. ASSESSMENT: 1. Weakness and anemia for evaluation, rule out gastrointestinal bleed. 2. Elevated LFTs, recent ERCP and stent placement apparently in [facility]. 3. Rule out extrahepatic biliary obstruction. 4. Minimal ascites in the recent ultrasound. 5. Increased creatinine with mild acute renal failure possibly prerenal secondary to dehydration. 6. Thrombocytopenia of undetermined etiology. 7. Anti mitochondrial antibody positive. 8. Diabetes mellitus type 2. 9. Hypertension. 10.History of myocardial infarction. 11.History of mentally handicapped. 12.History of coronary artery disease, stent. 13.History of cataracts. 14.History of nicotine dependence. 15.FULL CODE. RECOMMENDATIONS AND DISCUSSION: Continue current medications, management and symptomatic treatment. Will repeat the labs. Otherwise, we will continue to monitor. We will repeat the CMP for tomorrow and closely follow with Gastroenterology. There was not enough fluid for any ascitic aspiration at this time. We will obtain the old records and the hemoglobin is found to be 8.6. No further bleeding was noted. Monitor blood sugars closely. Guarded prognosis. Further recommendations to follow. MMODL / IJN: [id number] /
[2019-04-04 21:15] LABS: Glucose,Whole Blood 254 mg/dL (75-99)
[2019-04-05 07:15] LABS: Glucose,Whole Blood 108 mg/dL (75-99)
[2019-04-05 07:20] LABS: Anisocytosis Moderate; Basophils % (A) 1 %; Eosinophils # (A) 0.1 k/uL (0-0.7); Eosinophils % (A) 3 %; HCT 27.1 % (39.0-53.0); HGB 7.9 gm/dL (13.0-17.5); Hypochromasia Marked; Lymphocytes % (A) 22 %; MCH 33.6 pg (25.0-35.0); MCHC 29.3 g/dL (31.0-37.0); MCV 114.8 fL (80.0-100.0); Macrocytosis Marked; Mean Platelet Volume 9.1; Monocytes # (A) 0.3 k/uL (0-1.0); Monocytes % (A) 6 %; Neutrophils % (A) 67 %; Platelet Count 156 k/uL (150-450); RBC 2.36 m/uL (4.30-5.90); RDW 20.8 % (11.5-15.5); WBC 4.4 k/uL (3.8-10.6)
[2019-04-05 07:32] LABS: Albumin 2.2 g/dL (3.5-5.0); Calcium 7.9 mg/dL (8.4-10.2); Potassium 5.1 mmol/L (3.5-5.1); Total Bilirubin 1.4 mg/dL (0.2-1.3); Total Protein 4.5 g/dL (6.3-8.2)
[2019-04-05] MEDS: INSULIN ASPART (NovoLOG) 100 UNIT/ML VIAL SQ SCH ×4 (08:08→20:58)
[2019-04-05] MEDS: NIFEdipine XL 30 MG TAB.ER.24 PO SCH (08:09)
[2019-04-05] MEDS: METOPROLOL TARTRATE 12.5 MG TAB PO SCH ×2 (08:09→20:42)
[2019-04-05] MEDS: TAMSULOSIN 0.4 MG CAP.ER.24H PO SCH (08:09)
[2019-04-05] MEDS: PANTOPRAZOLE 40 MG TABLET PO SCH (08:09)
[2019-04-05] MEDS: DIVALPROEX ER 500 MG TAB.ER.24H PO SCH (08:10)
--- NOTE | 2019-04-05 11:04 | P.PN ---
Subjective Progress Note Date: 04/05/19 Principal diagnosis: elevated liver enzymes 78-year-old developmentally challenged male with a recent history of elevated liver enzymes failed ERCP evaluated at [facility] underwent ERCP biliary stent placement 03/28/2019 with findings of extrinsic compression in the ampulla due to pancreatic cyst and calcifications. Dilation in the common hepatic duct without clear evidence of stone or sludge and a stricture in the lower third of the main bile duct. Findings consistent with chronic pancreatitis and possible cholecystitis. Liver biopsy was not performed. CT abdomen and pelvis 04/01/2019 reported a moderate large bilateral simple fluid attenuation pleural effusions with significant compressive collapse of the lower lobes. Diffuse soft tissue edema anasarca with small to moderate volume of abdominal ascites. No bowel wall pneumatosis or pneumoperitoneum. Extensive chronic calcific pancreatitis and probable pancreatic ductal calculi. Colonic diverticulosis. Discrete hepatic lesion not identified. LFTs at [facility] 03/31/2019 AST 325. ALT 248. Total bilirubin 3. Direct bilirubin 1.6. Paracentesis attempted yesterday aborted not enough fluid. Today white count 4.4. Hemoglobin 7.9. BUN 24. Creatinine 1.4. Total bilirubin 1.4. AST 86. ALT 119. AP 1164. Objective - Vital Signs Vital signs: Vital Signs Temp 97.1 F L 04/05/19 07:00 Pulse 67 04/05/19 07:00 Resp 16 04/05/19 07:00 BP 165/74 04/05/19 07:00 Pulse Ox 93 L 04/05/19 07:00 Intake & Output 04/04/19 04/05/19 04/05/19 18:59 06:59 18:59 Intake Total 180 40 Output Total 1175 Balance 180 -1135 Intake: Intake, IV Titration 40 Amount Sodium Chloride 0.9% 1, 40 000 ml @ 100 mls/hr IV . Q10H ONE Rx#:[id number] Oral 180 Output: Urine 1175 Other: Voiding Method Indwelling Catheter Indwelling Catheter # Bowel Movements 1 2 - Exam General appearance: The patient is alert, in no acute distress. HET: Head is normocephalic and atraumatic. Pupils are equal and reactive. Oropharynx is clear without lesions. Neck: Supple without lymphadenopathy. Trachea midline. Heart: S1 S2. Regular rate and rhythm. Lungs: No crackles or wheezes are heard. Abdomen: Soft, mild ascites and anasarca with bowel sounds. No peritoneal signs. No palpable organomegaly or masses. Extremities: Anasarca. Neurological: No focal deficits. Strength and sensation are grossly intact. - Labs CBC & Chem 7: 04/06/19 06:43 04/06/19 06:43 Labs: Abnormal Lab Results - Last 24 Hours (Table) 04/04/19 04/04/19 04/04/19 Range/Units 07:24 11:27 17:28 WBC 3.4 L (3.8-10.6) k/uL RBC 2.54 L (4.30-5.90) m/uL Hgb 8.6 L (13.0-17.5) gm/dL Hct 29.1 L (39.0-53.0) % MCV 114.7 H (80.0-100.0) fL MCHC 29.7 L (31.0-37.0) g/dL RDW 20.6 H (11.5-15.5) % Macrocytosis Marked A Chloride (98-107) mmol/L BUN (9-20) mg/dL Creatinine (0.66-1.25) mg/dL Glucose (74-99) mg/dL POC Glucose (mg/dL) 253 H 206 H (75-99) mg/dL Calcium (8.4-10.2) mg/dL Total Bilirubin (0.2-1.3) mg/dL AST (17-59) U/L ALT (21-72) U/L Alkaline Phosphatase (38-126) U/L Total Protein (6.3-8.2) g/dL Albumin (3.5-5.0) g/dL 04/04/19 04/05/19 04/05/19 Range/Units 21:03 06:24 06:24 WBC (3.8-10.6) k/uL RBC 2.36 L (4.30-5.90) m/uL Hgb 7.9 L (13.0-17.5) gm/dL Hct 27.1 L (39.0-53.0) % MCV 114.8 H (80.0-100.0) fL MCHC 29.3 L (31.0-37.0) g/dL RDW 20.8 H (11.5-15.5) % Macrocytosis Marked A Chloride 109 H (98-107) mmol/L BUN 24 H (9-20) mg/dL Creatinine 1.44 H (0.66-1.25) mg/dL Glucose 59 L (74-99) mg/dL POC Glucose (mg/dL) 254 H (75-99) mg/dL Calcium 7.9 L (8.4-10.2) mg/dL Total Bilirubin 1.4 H (0.2-1.3) mg/dL AST 86 H (17-59) U/L ALT 119 H (21-72) U/L Alkaline Phosphatase 1164 H (38-126) U/L Total Protein 4.5 L (6.3-8.2) g/dL Albumin 2.2 L (3.5-5.0) g/dL 04/05/19 Range/Units 07:03 WBC (3.8-10.6) k/uL RBC (4.30-5.90) m/uL Hgb (13.0-17.5) gm/dL Hct (39.0-53.0) % MCV (80.0-100.0) fL MCHC (31.0-37.0) g/dL RDW (11.5-15.5) % Macrocytosis Chloride (98-107) mmol/L BUN (9-20) mg/dL Creatinine (0.66-1.25) mg/dL Glucose (74-99) mg/dL POC Glucose (mg/dL) 108 H (75-99) mg/dL Calcium (8.4-10.2) mg/dL Total Bilirubin (0.2-1.3) mg/dL AST (17-59) U/L ALT (21-72) U/L Alkaline Phosphatase (38-126) U/L Total Protein (6.3-8.2) g/dL Albumin (3.5-5.0) g/dL Microbiology - Last 24 Hours (Table) 04/03/19 14:50 Urine Culture - Final Urine,Voided Assessment and Plan (1) Elevated liver enzymes Narrative/Plan: s/p recent ERCP biliary stent [facility] with findings of chronic pancreatitis and pseudocyst and stricture of main bile duct. Current Visit: Yes Status: Acute Code(s): R74.8 - ABNORMAL LEVELS OF OTHER SERUM ENZYMES SNOMED Code(s): 767275609 (2) Antimitochondrial antibody positive Narrative/Plan: Possible underlying primary biliary cirrhosis Current Visit: Yes Status: Acute Code(s): R76.8 - OTHER SPECIFIED ABNORMAL IMMUNOLOGICAL FINDINGS IN SERUM SNOMED Code(s): 753569723 (3) Chronic pancreatitis Narrative/Plan: Etiology unclear possible idiopathic Current Visit: Yes Status: Acute Code(s): K86.1 - OTHER CHRONIC PANCREATITIS SNOMED Code(s): 675532534 (4) Macrocytic anemia Narrative/Plan: 78-year-old gentleman admitted with acute macrocytic anemia without overt bleeding with development of ascites and acute kidney injury clinically no evidence of active GI bleed such as hematemesis hematochezia or melena. Underlying elevated liver enzymes and elevated antimitochondrial antibody ra ising the clinical suspicion of possible biliary cirrhosis. Recent [facility] tertiary care evaluation less than 10 days ago for ERCP with biliary stent placement with evidence of chronic pancreatitis and pseudocyst possible cholecystitis. Current Visit: Yes Status: Acute Code(s): D53.9 - NUTRITIONAL ANEMIA, U NSPECIFIED SNOMED Code(s): 40182671 (5) History of biliary stent insertion Current Visit: Yes Status: Acute Code(s): Z98.890 - OTHER SPECIFIED POSTPROCEDURAL STATES SNOMED Code(s): 213363876 (6) Cognitive developmental delay Current Visit: Yes Status: Acute Code(s): F81.9 - DEVELOPMENTAL DISORDER OF SCHOLASTIC SKILLS, UNSPECIFIED SNOMED Code(s): 485291390 Plan: 1. Daily monitoring of liver function tests. [facility] records were reviewed by Dr. Wolfe. Recommend liver biopsy w/ IR. Start Ursodiol 13-15 mg/kg/day divided doses before meals. Assessment and plan a care discussed with Dr. Wolfe
[2019-04-05 11:57] LABS: Glucose,Whole Blood 163 mg/dL (75-99)
[2019-04-05 15:36] LABS: Hemoglobin A1C 5.3 % (4.0-6.0)
[2019-04-05] MEDS: URSODIOL 300 MG CAP PO SCH (16:54)
[2019-04-05 17:03] LABS: Glucose,Whole Blood 263 mg/dL (75-99)
--- NOTE | 2019-04-05 18:20 | P.PN ---
Subjective patient was admitted the for elevated liver enzymes patient will undergo biopsy of the liver liver enzymes fairly stable patient the recent ERCP and stenting at [facility] patient is also on Depakote he appears to be for bipolar. Constitutional: Denied any fatigue denied any fever. Cardio vascular: denied any chest pain, palpitations Gastrointestinal denied any nausea vomiting Pulmonary: Denied any shortness of breath cough Neurologic denied any new focal deficits All inpatient medications were reviewed and appropriate changes in these medications as dictated in the interval history and assessment and plan. Objective - Vital Signs Vital signs: Vital Signs Temp 97.3 F L 04/05/19 15:00 Pulse 68 04/05/19 15:00 Resp 16 04/05/19 15:00 BP 160/73 04/05/19 15:00 Pulse Ox 94 L 04/05/19 15:00 Intake & Output 04/04/19 04/05/19 04/05/19 18:59 06:59 18:59 Intake Total 120 23 2792 Output Total 1175 Balance 180 -1135 1000 Intake: Intake, IV Titration 40 Amount Sodium Chloride 0.9% 1, 40 000 ml @ 100 mls/hr IV . Q10H ONE Rx#:[id number] Oral 180 1000 Output: Urine 1175 Other: Voiding Method Indwelling Catheter Indwelling Catheter Indwelling Catheter # Bowel Movements 1 1 - Exam PHYSICAL EXAMINATION: GENERAL: The patient is alert and oriented x3, not in any acute distress. Well developed, well nourished. HEENT: Pupils are round and equally reacting to light. EOMI. No scleral icterus. No conjunctival pallor. Normocephalic, atraumatic. No pharyngeal erythema. No thyromegaly. CARDIOVASCULAR: S1 and S2 present. No murmurs, rubs, or gallops. PULMONARY: Chest is clear to auscultation, no wheezing or crackles. ABDOMEN: Soft, nontender, nondistended, normoactive bowel sounds. No palpable organomegaly. MUSCULOSKELETAL: No joint swelling or deformity. EXTREMITIES: No cyanosis, clubbing, or pedal edema. NEUROLOGICAL: Gross neurological examination did not reveal any focal deficits. SKIN: No rashes. - Labs CBC & Chem 7: 04/05/19 06:24 04/05/19 06:24 Labs: Abnormal Lab Results - Last 24 Hours (Table) 04/04/19 04/05/19 04/05/19 Range/Units 21:03 06:24 06:24 RBC 2.36 L (4.30-5.90) m/uL Hgb 7.9 L (13.0-17.5) gm/dL Hct 27.1 L (39.0-53.0) % MCV 114.8 H (80.0-100.0) fL MCHC 29.3 L (31.0-37.0) g/dL RDW 20.8 H (11.5-15.5) % Macrocytosis Marked A Chloride 109 H (98-107) mmol/L BUN 24 H (9-20) mg/dL Creatinine 1.44 H (0.66-1.25) mg/dL Glucose 59 L (74-99) mg/dL POC Glucose (mg/dL) 254 H (75-99) mg/dL Calcium 7.9 L (8.4-10.2) mg/dL Total Bilirubin 1.4 H (0.2-1.3) mg/dL AST 86 H (17-59) U/L ALT 119 H (21-72) U/L Alkaline Phosphatase 1164 H (38-126) U/L Total Protein 4.5 L (6.3-8.2) g/dL Albumin 2.2 L (3.5-5.0) g/dL 04/05/19 04/05/19 04/05/19 Range/Units 07:03 11:43 16:44 RBC (4.30-5.90) m/uL Hgb (13.0-17.5) gm/dL Hct (39.0-53.0) % MCV (80.0-100.0) fL MCHC (31.0-37.0) g/dL RDW (11.5-15.5) % Macrocytosis Chloride (98-107) mmol/L BUN (9-20) mg/dL Creatinine (0.66-1.25) mg/dL Glucose (74-99) mg/dL POC Glucose (mg/dL) 108 H 163 H 263 H (75-99) mg/dL Calcium (8.4-10.2) mg/dL Total Bilirubin (0.2-1.3) mg/dL AST (17-59) U/L ALT (21-72) U/L Alkaline Phosphatase (38-126) U/L Total Protein (6.3-8.2) g/dL Albumin (3.5-5.0) g/dL Microbiology - Last 24 Hours (Table) 04/03/19 14:50 Urine Culture - Final Urine,Voided Assessment and Plan Plan: -elevated liver enzymes: Biopsy of the liver tomorrow liver enzymes are still elevated but stable at this time patient had a recent ERCP --Acute renal failure secondary to prerenal azotemia continue with IV fluids -Type 2 diabetes mellitus -Hypertension -Bipolar disorder
[2019-04-05 20:44] LABS: Glucose,Whole Blood 210 mg/dL (75-99)
[2019-04-06 07:35] LABS: Glucose,Whole Blood 117 mg/dL (75-99)
[2019-04-06 07:42] LABS: Anisocytosis Moderate; Basophils % (A) 1 %; Eosinophils # (A) 0.1 k/uL (0-0.7); Eosinophils % (A) 3 %; HCT 28.3 % (39.0-53.0); HGB 8.5 gm/dL (13.0-17.5); Hypochromasia Marked; Lymphocytes % (A) 26 %; MCH 34.7 pg (25.0-35.0); MCV 115.9 fL (80.0-100.0); Macrocytosis Marked; Mean Platelet Volume 8.8; Monocytes # (A) 0.3 k/uL (0-1.0); Monocytes % (A) 6 %; Neutrophils # (A) 2.4 k/uL (1.3-7.7); Neutrophils % (A) 62 %; Platelet Count 176 k/uL (150-450); RBC 2.44 m/uL (4.30-5.90); RDW 21.2 % (11.5-15.5); WBC 3.9 k/uL (3.8-10.6)
[2019-04-06 08:10] LABS: Albumin 2.3 g/dL (3.5-5.0); Potassium 5.3 mmol/L (3.5-5.1); Total Bilirubin 1.5 mg/dL (0.2-1.3); Total Protein 4.6 g/dL (6.3-8.2)
[2019-04-06] MEDS: INSULIN ASPART (NovoLOG) 100 UNIT/ML VIAL SQ SCH ×4 (08:14→20:40)
[2019-04-06] MEDS: METOPROLOL TARTRATE 12.5 MG TAB PO SCH (08:14)
[2019-04-06] MEDS: URSODIOL 300 MG CAP PO SCH ×3 (08:15→17:53)
[2019-04-06] MEDS: NIFEdipine XL 30 MG TAB.ER.24 PO SCH (08:15)
[2019-04-06] MEDS: TAMSULOSIN 0.4 MG CAP.ER.24H PO SCH (08:15)
[2019-04-06] MEDS: PANTOPRAZOLE 40 MG TABLET PO SCH (08:16)
[2019-04-06] MEDS: DIVALPROEX ER 500 MG TAB.ER.24H PO SCH (08:16)
--- NOTE | 2019-04-06 09:44 | P.PN ---
Subjective Progress Note Date: 04/06/19 Principal diagnosis: elevated liver enzymes 78-year-old developmentally challenged male with a recent history of elevated liver enzymes failed ERCP evaluated at [facility] underwent ERCP biliary stent placement on 03/28/2019 with findings of extrinsic compression in the ampulla due to pancreatic cyst and calcifications. Dilation in the common hepatic duct without clear evidence of stone or sludge and a stricture in the lower third of the main bile duct. Findings consistent with chronic pancreatitis and possible cholecystitis. Liver biopsy was not performed. CT abdomen and pelvis 04/01/2019 reported a moderate large bilateral simple fluid attenuation pleural effusions with significant compressive collapse of the lower lobes. Diffuse soft tissue edema anasarca with small to moderate volume of abdominal ascites. No bowel wall pneumatosis or pneumoperitoneum. Extensive chronic calcific pancreatitis and probable pancreatic ductal calculi. Colonic diverticulosis. Discrete hepatic lesion not identified. LFTs at [facility] 03/31/2019 AST 325. ALT 248. Total bilirubin 3. Direct bilirubin 1.6. Paracentesis attempted 2 days ago aborted not enough fluid. Liver biopsy scheduled tomorrow with IR with sedation. Started on ursodiol last night. Today white count 3.9. Hemoglobin 8.5. Platelet 176. BUN 20. Creatinine 1.4. Total bilirubin 1.5. AST 70. ALT 113. AP 1347. Resting comfortably in bedside chair with no complaints. Objective - Vital Signs Vital signs: Vital Signs Temp 97.6 F 04/06/19 07:00 Pulse 63 04/06/19 07:00 Resp 12 04/06/19 07:00 BP 151/71 04/06/19 07:00 Pulse Ox 93 L 04/06/19 07:00 Intake & Output 04/05/19 04/06/19 04/06/19 18:59 06:59 18:59 Intake Total 1000 Output Total 700 Balance 1000 -700 Intake: Oral 1000 Output: Urine 700 Other: Voiding Method Indwelling Catheter Indwelling Catheter Indwelling Catheter # Bowel Movements 1 - Exam General appearance: The patient is alert, in no acute distress. HET: Head is normocephalic and atraumatic. Pupils are equal and reactive. Oropharynx is clear without lesions. Neck: Supple without lymphadenopathy. Trachea midline. Heart: S1 S2. Regular rate and rhythm. Lungs: No crackles or wheezes are heard. Abdomen: Soft, mild ascites and anasarca with bowel sounds. No peritoneal signs. No palpable organomegaly or masses. Extremities: Anasarca. Neurological: No focal deficits. Strength and sensation are grossly intact. - Labs CBC & Chem 7: 04/06/19 06:43 04/06/19 06:43 Labs: Abnormal Lab Results - Last 24 Hours (Table) 04/05/19 04/05/19 04/05/19 Range/Units 11:43 16:44 20:43 RBC (4.30-5.90) m/uL Hgb (13.0-17.5) gm/dL Hct (39.0-53.0) % MCV (80.0-100.0) fL MCHC (31.0-37.0) g/dL RDW (11.5-15.5) % Macrocytosis Potassium (3.5-5.1) mmol/L Chloride (98-107) mmol/L Creatinine (0.66-1.25) mg/dL POC Glucose (mg/dL) 163 H 263 H 210 H (75-99) mg/dL Calcium (8.4-10.2) mg/dL Total Bilirubin (0.2-1.3) mg/dL AST (17-59) U/L ALT (21-72) U/L Alkaline Phosphatase (38-126) U/L Total Protein (6.3-8.2) g/dL Albumin (3.5-5.0) g/dL 04/06/19 04/06/19 04/06/19 Range/Units 06:43 06:43 07:23 RBC 2.44 L (4.30-5.90) m/uL Hgb 8.5 L (13.0-17.5) gm/dL Hct 28.3 L (39.0-53.0) % MCV 115.9 H (80.0-100.0) fL MCHC 30.0 L (31.0-37.0) g/dL RDW 21.2 H (11.5-15.5) % Macrocytosis Marked A Potassium 5.3 H (3.5-5.1) mmol/L Chloride 109 H (98-107) mmol/L Creatinine 1.45 H (0.66-1.25) mg/dL POC Glucose (mg/dL) 117 H (75-99) mg/dL Calcium 8.0 L (8.4-10.2) mg/dL Total Bilirubin 1.5 H (0.2-1.3) mg/dL AST 70 H (17-59) U/L ALT 113 H (21-72) U/L Alkaline Phosphatase 1347 H (38-126) U/L Total Protein 4.6 L (6.3-8.2) g/dL Albumin 2.3 L (3.5-5.0) g/dL Assessment and Plan (1) Elevated liver enzymes Narrative/Plan: s/p recent ERCP biliary stent at [facility] with findings of chronic pancreatitis and pseudocyst biliary stricture of main bile duct. Current Visit: Yes Status: Acute Code(s): R74.8 - ABNORMAL LEVELS OF OTHER SERUM ENZYMES SNOMED Code(s): 370118850 (2) Antimitochondrial antibody positive Narrative/Plan: Possible underlying primary biliary cirrhosis Current Visit: Yes Status: Acute Code(s): R76.8 - OTHER SPECIFIED ABNORMAL IMMUNOLOGICAL FINDINGS IN SERUM SNOMED Code(s): 736801884 (3) Chronic pancreatitis Narrative/Plan: Etiology unclear possible idiopathic Current Visit: Yes Status: Acute Code(s): K86.1 - OTHER CHRONIC PANCREATITIS SNOMED Code(s): 701532240 (4) Macrocytic anemia Narrative/Plan: 78-year-old gentleman admitted with acute macrocytic anemia without overt bleeding with development of ascites and acute kidney injury clinically no evidence of active GI bleed such as hematemesis hematochezia or melena. Underlying elevated liver enzymes and elevated antimitochondrial antibody raising the clinical suspicion of possible biliary cirrhosis. Recent [facility] tertiary care evaluation less than 10 days ago for ERCP with biliary stent placement with evidence of chronic pancreatitis and pseudocyst possible cholecystitis. Current Visit: Yes Status: Acute Code(s): D53.9 - NUTRITIONAL ANEMIA, UNSPECIFIED SNOMED Code(s): 50029420 (5) History of biliary stent insertion Current Visit: Yes Status: Acute Code(s): Z98.890 - OTHER SPECIFIED POSTPROCEDURAL STATES SNOMED Code(s): 525643795 (6) Cognitive developmental delay Current Visit: Yes Status: Acute Code(s): F81.9 - DEVELOPMENTAL DISORDER OF SCHOLASTIC SKILLS, UNSPECIFIED SNOMED Code(s): 814335622 Plan: 1. Daily monitoring of liver function tests. [facility] records were reviewed by Dr. Wolfe. Liver biopsy w/ IR tomorrow. Continue Ursodiol 300 mg before meals 3 times a day Assessment and plan a care discussed with Dr. Wolfe
[2019-04-06 11:53] LABS: Glucose,Whole Blood 267 mg/dL (75-99)
[2019-04-06] MEDS ORDERED: SODIUM POLYSTYRENE SULFONATE 15 GM/60 ML BOTTLE PO STA (12:12)
[2019-04-06 12:14] LABS: T4, Free (Free Thyroxine) 1.7 ng/dL (0.78-2.19)
--- NOTE | 2019-04-06 12:47 | P.PN ---
Subjective patient was admitted the for elevated liver enzymes patient will undergo biopsy of the liver liver enzymes fairly stable patient the recent ERCP and stenting at [facility] patient is also on Depakote he appears to be for bipolar. 04/06/2019 Patient's liver enzymes are fairly stable. Patient remains on Dilantin will discuss with gastroenterology to see if this is contributing to elevated liver enzymes. Patient will undergo liver biopsy tomorrow. Patient had an episode of A. fib postanesthesia patient was not started on any anticoagulation at [facility] as it was believed to be a brief episodes secondary to anesthesia. They recommended a Holter monitor down the line when his most of lysed regarding his liver perspective and if he has episodes of A. fib then probably will need anticoagulation at that time Constitutional: Denied any fatigue denied any fever. Cardio vascular: denied any chest pain, palpitations Gastrointestinal denied any nausea vomiting Pulmonary: Denied any shortness of breath cough Neurologic denied any new focal deficits All inpatient medications were reviewed and appropriate changes in these medications as dictated in the interval history and assessment and plan. Objective - Vital Signs Vital signs: Vital Signs Temp 97.6 F 04/06/19 07:00 Pulse 63 04/06/19 07:00 Resp 12 04/06/19 07:00 BP 151/71 04/06/19 07:00 Pulse Ox 93 L 04/06/19 07:00 Intake & Output 04/05/19 04/06/19 04/06/19 18:59 06:59 18:59 Intake Total 1000 Output Total 700 Balance 1000 -700 Intake: Oral 1000 Output: Urine 700 Other: Voiding Method Indwelling Catheter Indwelling Catheter Indwelling Catheter # Bowel Movements 1 - Exam PHYSICAL EXAMINATION: GENERAL: The patient is alert and oriented x3, not in any acute distress. Well developed, well nourished. HEENT: Pupils are round and equally reacting to light. EOMI. No scleral icterus. No conjunctival pallor. Normocephalic, atraumatic. No pharyngeal erythema. No thyromegaly. CARDIOVASCULAR: S1 and S2 present. No murmurs, rubs, or gallops. PULMONARY: Chest is clear to auscultation, no wheezing or crackles. ABDOMEN: Soft, nontender, nondistended, normoactive bowel sounds. No palpable organomegaly. MUSCULOSKELETAL: No joint swelling or deformity. EXTREMITIES: No cyanosis, clubbing, or pedal edema. NEUROLOGICAL: Gross neurological examination did not reveal any focal deficits. SKIN: No rashes. - Labs CBC & Chem 7: 04/06/19 06:43 04/06/19 06:43 Labs: Abnormal Lab Results - Last 24 Hours (Table) 04/05/19 04/05/19 04/06/19 Range/Units 16:44 20:43 06:43 RBC 2.44 L (4.30-5.90) m/uL Hgb 8.5 L (13.0-17.5) gm/dL Hct 28.3 L (39.0-53.0) % MCV 115.9 H (80.0-100.0) fL MCHC 30.0 L (31.0-37.0) g/dL RDW 21.2 H (11.5-15.5) % Macrocytosis Marked A Potassium (3.5-5.1) mmol/L Chloride (98-107) mmol/L Creatinine (0.66-1.25) mg/dL POC Glucose (mg/dL) 263 H 210 H (75-99) mg/dL Calcium (8.4-10.2) mg/dL Total Bilirubin (0.2-1.3) mg/dL AST (17-59) U/L ALT (21-72) U/L Alkaline Phosphatase (38-126) U/L Total Protein (6.3-8.2) g/dL Albumin (3.5-5.0) g/dL TSH (0.465-4.680) mIU/L 04/06/19 04/06/19 04/06/19 Range/Units 06:43 06:43 07:23 RBC (4.30-5.90) m/uL Hgb (13.0-17.5) gm/dL Hct (39.0-53.0) % MCV (80.0-100.0) fL MCHC (31.0-37.0) g/dL RDW (11.5-15.5) % Macrocytosis Potassium 5.3 H (3.5-5.1) mmol/L Chloride 109 H (98-107) mmol/L Creatinine 1.45 H (0.66-1.25) mg/dL POC Glucose (mg/dL) 117 H (75-99) mg/dL Calcium 8.0 L (8.4-10.2) mg/dL Total Bilirubin 1.5 H (0.2-1.3) mg/dL AST 70 H (17-59) U/L ALT 113 H (21-72) U/L Alkaline Phosphatase 1347 H (38-126) U/L Total Protein 4.6 L (6.3-8.2) g/dL Albumin 2.3 L (3.5-5.0) g/dL TSH 6.070 H (0.465-4.680) mIU/L 04/06/19 Range/Units 11:51 RBC (4.30-5.90) m/uL Hgb (13.0-17.5) gm/dL Hct (39.0-53.0) % MCV (80.0-100.0) fL MCHC (31.0-37.0) g/dL RDW (11.5-15.5) % Macrocytosis Potassium (3.5-5.1) mmol/L Chloride (98-107) mmol/L Creatinine (0.66-1.25) mg/dL POC Glucose (mg/dL) 267 H (75-99) mg/dL Calcium (8.4-10.2) mg/dL Total Bilirubin (0.2-1.3) mg/dL AST (17-59) U/L ALT (21-72) U/L Alkaline Phosphatase (38-126) U/L Total Protein (6.3-8.2) g/dL Albumin (3.5-5.0) g/dL TSH (0.465-4.680) mIU/L Assessment and Plan Plan: -elevated liver enzymes: Biopsy of the liver tomorrow liver enzymes are still elevated but stable at this time patient had a recent ERCP -Postanesthesia brief episode of atrial fibrillation, Not anti-coagulation with the above-mentioned reasons --Acute renal failure secondary to prerenal azotemia continue with IV fluids -Type 2 diabetes mellitus -Hypertension -Bipolar disorder
--- NOTE | 2019-04-06 14:25 | P.CRDCN ---
History of Present Illness History of present illness: This is a pleasant 78 showed male past medical history significant for diabetes mellitus, hypertension, dyslipidemia, peripheral vascular disease, coronary artery disease, bladder cancer 2013 with urinary retention, and recent hepatic mass diagnosis and cognitive delay. He follows in the office with Dr. Macedo and recently saw Dr. Isaacs regarding bilateraly SFA disease for which is being managed medically secondary to thrombocytopenia. He presented to the hospital 04/03 for decreased urine output, dizziness and overall weakness. We have been asked to see him in consultation for bradycardia. He is a poor historian, information is obtained from nursing staff and medical record. CT of the abdomen and pelvis on admission revealed moderate ascites, moderate bilateral pleural effusions and basilar atelectasis. Apparently in the recent 2 weeks he was at [facility] and underwent ERCP but was unsuccessful and then underwent bilary stent placement.He is being followed by GI service and is scheduled to undergo liver biopsy. There was some concern for bradycarida overnight last night on telemetry. Tracings reviewed reveal small gain with small QRS possibly was being overlooked. Heart rate running between 44-55 with no evidence of profound bradycardia noted. Pt was sleeping at the time and was asymptomatic. EKG obtained revealed sinus bradycardia heart rate 50. Review of old EKG's from February 2019 reveal he was in atrial fibrillation which doesn't seem to have been previously diagnosed. Cardiology was not consulted on last admission. EKG reveals sinus bradycardia heart rate [address] or T wave abnormalities noted. Laboratory data reviewed, WBC 3.9, hemoglobin 8.5, platelets 176, sodium 140, potassium 5.3, creatinine 1.45 with a GFR of 46, total bilirubin 1.5, AST 70, PLT 113, alkaline phosphatase 1347, magnesium on April 03 was 2.1. Current cardiac medications include simvastatin 40 mg daily, nifedipine 30 mg daily, Lopressor 12.5 mg twice a day. At the time of my exam: CONSTITUTIONAL: Denies fever. Denies chills. EYES: Denies blurred vision. Denies vision changes. Denies eye pain. EARS, NOSE, MOUTH & THROAT: Denies headache. Denies sore throat. Denies ear pain. CARDIOVASCULAR: Denies chest pain. Denies shortness of breath. Denies orthopnea. Denies PND. Denies palpitations. RESPIRATORY: Denies cough. GASTROINTESTINAL: Denies abdominal pain. Denies diarrhea. Denies constipation. Denies nausea. Denies vomiting. MUSCULOSKELETAL: Denies myalgias. INTEGUMENTARY: Denies pruitis. Denies rash. NEUROLOGIC: Denies numbness. Denies tingling. Denies weakness. PSYCHIATRIC: Denies anxiety. Denies depression. ENDOCRINE: Denies fatigue. Denies weight change. Denies polydipsia. Denies polyurina. GENITOURINARY: Denies burning, hematuria or urgency with micturation. HEMATOLOGIC: Denies history of anemia. Denies bleeding. Blood pressure 151/71 heart rate 63 afebrile maintaining oxygen saturation on room air GENERAL: This is a 78-year-old female in no apparent distress at the time of my examination. HEENT: Head is atraumatic, normocephalic. Pupils are equal, round. Sclerae anicteric. Conjunctivae are clear. Mucous membranes of the mouth are moist. Neck is supple. There is no jugular venous distention. No carotid bruit is heard. LUNGS: Clear to auscultation no wheezes, rales or rhonchi. No chest wall tenderness is noted on palpation or with deep breathing. HEART: Regular rate and rhythm without murmurs, rubs or gallops. S1 and S2 heard. ABDOMEN: Soft, nontender. Bowel sounds are heard. No organomegaly noted. EXTREMITIES: 2+ bilateral lower extremity pitting edema and no calf tenderness noted. VASCULAR: Radial and dorsalis pedis pulses palpated, no evidence of clubbing. NEUROLOGIC: Patient is awake, alert and oriented x3. ASSESSMENT Sinus bradycardia, asymptomatic Paroxysmal atrial fibrillation, not on buttermaker anti-coagulation due to ongoing liver mass and disease. Currently maintaining sinus mechanism. Ascites s/p attempted biliary stent placement Hypertension Dyslipidemia Diabetes mellitus Peripheral arterial disease Thrombocytopenia Paroxysmal atrial fibrillation PLAN Would not recommend anti-coagulation at this time due to ongoing liver disease and biopsy scheduled. Discontinue lopressor for persistent bradycardia. TSH checked and mildly elevated, primary team to address and monitor. Hemodynamically stable from a cardiac perspective. Follow up with Dr. Macedo upon discharge. Thank you kindly for this consultation. Nurse Practitioner note has been reviewed, I agree with a documented findings and plan of care. Patient was seen and examined. Past Medical History Past Medical History: Cancer, Diabetes Mellitus, Hyperlipidemia, Hypertension, Myocardial Infarction ([place]) Additional Past Medical History / Comment(s): Mental handicap-approx capacity at age 9.,bladder Ca approx 2013,elevated potassium Last Myocardial Infarction Date:: 2009 History of Any Multi-Drug Resistant Organisms: None Reported Past Surgical History: Heart Catheterization With Stent Additional Past Surgical History / Comment(s): bladder tumors removed; Cataract R eye, stent place in pancreatic duct Past Anesthesia/Blood Transfusion Reactions: No Reported Reaction Date of Last Stent Placement:: 2009 Past Psychological History: No Psychological Hx Reported Smoking Status: Former smoker Past Alcohol Use History: None Reported Past Drug Use History: None Reported - Past Family History Father Family Medical History: Cancer Additional Family Medical History / Comment(s): lung Mother Family Medical History: COPD Additional Family Medical History / Comment(s): bowel surgeries Medications and Allergies Home Medications Medication Instructions Recorded Confirmed Type Calcitriol [Rocaltrol] 0.25 mcg PO Q48H 12/29/16 04/03/19 History Cholecalciferol [Vitamin D3] 2,000 unit PO DAILY 12/29/16 04/03/19 History Ferrous Sulfate [Feosol] 325 mg PO BID 12/29/16 04/03/19 History Metoprolol Tartrate [Lopressor] 12.5 mg PO BID 12/29/16 04/03/19 History Simvastatin [Zocor] 40 mg PO HS 12/29/16 04/03/19 History Tamsulosin [Flomax] 0.4 mg PO DAILY 12/29/16 04/03/19 History Acetaminophen Tab [Tylenol Tab] 650 mg PO Q6H PRN 03/19/19 04/03/19 History Divalproex Sodium [Divalproex 1,000 mg PO DAILY 03/19/19 04/03/19 History Sodium ER] Insulin Aspart [NovoLOG Flexpen] 5 units SQ AC-TID 03/19/19 04/03/19 History Polyethylene Glycol 3350 [Miralax] 17 gm PO DAILY PRN 03/19/19 04/03/19 History Sennosides [Senna] 8.6 mg PO HS PRN 03/19/19 04/03/19 History Cyanocobalamin (Vitamin B-12) 1,000 mcg PO DAILY 04/03/19 04/03/19 History [Vitamin B-12] Dulaglutide [Trulicity] 0.75 mg SQ Q7D 04/03/19 04/03/19 History Glucerna Shake 1 can PO BID 04/03/19 04/03/19 History NIFEdipine [NIFEdipine ER] 30 mg PO DAILY 04/03/19 04/03/19 History Pantoprazole Sodium [Protonix] 40 mg PO DAILY 04/03/19 04/03/19 History Allergies Allergy/AdvReac Type Severity Reaction Status Date / Time lithium Allergy Unknown Verified 04/03/19 14:50 Physical Exam Vitals: Vital Signs Temp Pulse Pulse Resp BP Pulse Ox 04/06/19 07:00 97.6 F 63 12 151/71 93 L 04/06/19 01:31 97.0 F L 52 L 18 169/70 97 04/05/19 20:41 51 L 04/05/19 19:22 54 L 18 146/62 100 04/05/19 15:00 97.3 F L 68 16 160/73 94 L Intake and Output 04/05/19 04/06/19 04/06/19 22:59 06:59 14:59 Output Total 700 Balance -700 Output: Urine 700 Other: Voiding Method Indwelling Catheter Indwelling Catheter # Bowel Movements 1 Results 04/06/19 06:43 04/06/19 06:43 Cardiac Enzymes 04/06/19 Range/Units 06:43 AST 70 H (17-59) U/L CBC 04/06/19 Range/Units 06:43 WBC 3.9 (3.8-10.6) k/uL RBC 2.44 L (4.30-5.90) m/uL Hgb 8.5 L (13.0-17.5) gm/dL Hct 28.3 L (39.0-53.0) % Plt Count 176 (150-450) k/uL Comprehensive Metabolic Panel 04/06/19 Range/Units 06:43 Sodium 140 (137-145) mmol/L Potassium 5.3 H (3.5-5.1) mmol/L Chloride 109 H (98-107) mmol/L Carbon Dioxide 27 (22-30) mmol/L BUN 20 (9-20) mg/dL Creatinine 1.45 H (0.66-1.25) mg/dL Glucose 98 (74-99) mg/dL Calcium 8.0 L (8.4-10.2) mg/dL AST 70 H (17-59) U/L ALT 113 H (21-72) U/L Alkaline Phosphatase 1347 H (38-126) U/L Total Protein 4.6 L (6.3-8.2) g/dL Albumin 2.3 L (3.5-5.0) g/dL Current Medications Generic Name Dose Route Start Last Admin Trade Name Freq PRN Reason Stop Dose Admin Acetaminophen 650 mg 04/03/19 19:35 Tylenol Tab PO Q6H PRN Pain Alprazolam 0.25 mg 04/03/19 19:38 Xanax PO TID PRN Anxiety Divalproex Sodium 1,000 mg 04/04/19 09:00 04/06/19 08:16 Depakote Er PO 1,000 mg DAILY [facility] Administration Insulin Aspart 0 unit 04/04/19 07:30 04/06/19 08:14 Novolog SQ Not Given ACHS [facility] Protocol Nifedipine 30 mg 04/04/19 09:00 04/06/19 08:15 Procardia Xl PO 30 mg DAILY [facility] Administration Patient's Own ( 0.75 mg 04/03/19 19:45 04/03/19 22:13 Dulaglutide [ SQ Not Given Trulicity] 0.75 Mg) Q7D [facility] Pantoprazole Sodium 40 mg 04/04/19 07:30 04/06/19 08:16 Protonix PO 40 mg [id number] [facility] Administration Polyethylene Glycol 17 gm 04/03/19 19:35 Miralax PO DAILY PRN Constipation Senna 8.6 mg 04/03/19 19:35 Senokot PO HS PRN Constipation Tamsulosin HCl 0.4 mg 04/04/19 09:00 04/06/19 08:15 Flomax PO 0.4 mg DAILY [facility] Administration Temazepam 15 mg 04/03/19 19:38 Restoril PO HS PRN Insomnia Ursodiol 300 mg 04/05/19 17:30 04/06/19 08:15 Actigall PO 300 mg TID-W/MEALS [facility] Administration Intake and Output 04/05/19 04/06/19 04/06/19 22:59 06:59 14:59 Output Total 700 Balance -700 Output: Urine 700 Other: Voiding Method Indwelling Catheter Indwelling Catheter # Bowel Movements 1 04/06/19 06:43 04/06/19 06:43
[2019-04-06 16:41] LABS: Glucose,Whole Blood 246 mg/dL (75-99)
[2019-04-06 20:26] LABS: Glucose,Whole Blood 274 mg/dL (75-99)
[2019-04-07 06:58] LABS: Glucose,Whole Blood 66 mg/dL (75-99)
[2019-04-07 07:28] LABS: Glucose,Whole Blood 87 mg/dL (75-99)
[2019-04-07] MEDS: INSULIN ASPART (NovoLOG) 100 UNIT/ML VIAL SQ SCH ×4 (07:29→20:12)
[2019-04-07 07:47] LABS: Mean Platelet Volume 8.7; Platelet Count 231 k/uL (150-450)
[2019-04-07 08:02] LABS: Albumin 2.4 g/dL (3.5-5.0); Calcium 8.1 mg/dL (8.4-10.2); Potassium 5.4 mmol/L (3.5-5.1); Total Bilirubin 1.4 mg/dL (0.2-1.3); Total Protein 4.9 g/dL (6.3-8.2)
[2019-04-07] MEDS: URSODIOL 300 MG CAP PO SCH ×3 (08:58→17:32)
[2019-04-07] MEDS: DIVALPROEX ER 500 MG TAB.ER.24H PO SCH (09:04)
[2019-04-07] MEDS: PANTOPRAZOLE 40 MG TABLET PO SCH (09:04)
[2019-04-07] MEDS: TAMSULOSIN 0.4 MG CAP.ER.24H PO SCH (09:05)
[2019-04-07] MEDS: NIFEdipine XL 30 MG TAB.ER.24 PO SCH (09:05)
--- NOTE | 2019-04-07 11:36 | P.PN ---
Subjective Progress Note Date: 04/07/19 Principal diagnosis: elevated liver enzymes 78-year-old developmentally challenged male with a recent history of elevated liver enzymes failed ERCP evaluated at [facility] underwent ERCP biliary stent placement 03/28/2019 with findings of extrinsic compression in the ampulla due to pancreatic cyst and calcifications. Dilation in the common hepatic duct without clear evidence of stone or sludge and a stricture in the lower third of the main bile duct. Findings consistent with chronic pancreatitis and possible cholecystitis. Liver biopsy was not performed. CT abdomen and pelvis 04/01/2019 reported a moderate large bilateral simple fluid attenuation pleural effusions with significant compressive collapse of the lower lobes. Diffuse soft tissue edema anasarca with small to moderate volume of abdominal ascites. No bowel wall pneumatosis or pneumoperitoneum. Extensive chronic calcific pancreatitis and probable pancreatic ductal calculi. Colonic diverticulosis. Discrete hepatic lesion not identified. LFTs at [facility] 03/31/2019 AST 325. ALT 248. Total bilirubin 3. Direct bilirubin 1.6. Paracentesis attempted aborted not enough fluid. AP improved 1034. Liver biopsy scheduled today. Objective - Vital Signs Vital signs: Vital Signs Temp 97.6 F 04/07/19 07:00 Pulse 54 L 04/07/19 08:00 Resp 14 04/07/19 08:00 BP 178/89 04/07/19 07:00 Pulse Ox 97 04/07/19 07:00 Intake & Output 04/06/19 04/07/19 04/07/19 18:59 06:59 18:59 Intake Total 250 Output Total 1450 450 Balance -1200 -450 Intake: Oral 250 Output: Urine 1450 450 Other: Voiding Method Indwelling Catheter Indwelling Catheter Indwelling Catheter # Bowel Movements 1 - Exam General appearance: The patient is alert, in no acute distress. HET: Head is normocephalic and atraumatic. Pupils are equal and reactive. Oropharynx is clear without lesions. Neck: Supple without lymphadenopathy. Trachea midline. Heart: S1 S2. Regular rate and rhythm. Lungs: No crackles or wheezes are heard. Abdomen: Soft, mild ascites and anasarca with bowel sounds. No peritoneal signs. No palpable organomegaly or masses. Extremities: Anasarca. Neurological: No focal deficits. Strength and sensation are grossly intact. - Labs CBC & Chem 7: 04/07/19 07:18 04/07/19 07:18 Labs: Abnormal Lab Results - Last 24 Hours (Table) 04/06/19 04/06/19 04/06/19 Range/Units 06:43 11:51 16:38 Potassium (3.5-5.1) mmol/L Chloride (98-107) mmol/L Creatinine (0.66-1.25) mg/dL Glucose (74-99) mg/dL POC Glucose (mg/dL) 267 H 246 H (75-99) mg/dL Calcium (8.4-10.2) mg/dL Total Bilirubin (0.2-1.3) mg/dL ALT (21-72) U/L Alkaline Phosphatase (38-126) U/L Total Protein (6.3-8.2) g/dL Albumin (3.5-5.0) g/dL TSH 6.070 H (0.465-4.680) mIU/L 04/06/19 04/07/19 04/07/19 Range/Units 20:25 06:53 07:18 Potassium 5.4 H (3.5-5.1) mmol/L Chloride 109 H (98-107) mmol/L Creatinine 1.49 H (0.66-1.25) mg/dL Glucose 72 L (74-99) mg/dL POC Glucose (mg/dL) 274 H 66 L (75-99) mg/dL Calcium 8.1 L (8.4-10.2) mg/dL Total Bilirubin 1.4 H (0.2-1.3) mg/dL ALT 97 H (21-72) U/L Alkaline Phosphatase 1032 H (38-126) U/L Total Protein 4.9 L (6.3-8.2) g/dL Albumin 2.4 L (3.5-5.0) g/dL TSH (0.465-4.680) mIU/L Assessment and Plan (1) Elevated liver enzymes Narrative/Plan: s/p recent [facility]CP biliary stent [facility] with findings of chronic pancreatitis and pseudocyst and stricture of main bile duct. Current Visit: Yes Status: Acute Code(s): R74.8 - ABNORMAL LEVELS OF OTHER SERUM ENZYMES SNOMED Code(s): 336563271 (2) Antimitochondrial antibody positive Narrative/Plan: Possible underlying primary biliary cirrhosis Current Visit: Yes Status: Acute Code(s): R76.8 - OTHER SPECIFIED ABNORMAL IMMUNOLOGICAL FINDINGS IN SERUM SNOMED Code(s): 974123550 (3) Chronic pancreatitis Narrative/Plan: Etiology unclear possible idiopathic Current Visit: Yes Status: Acute Code(s): K86.1 - OTHER CHRONIC PANCREATITIS SNOMED Code(s): 468135304 (4) Macrocytic anemia Narrative/Plan: 78-year-old gentleman admitted with acute macrocytic anemia without overt bleeding with development of ascites and acute kidney injury clinically no evidence of active GI bleed such as hematemesis hematochezia or melena. Underlying elevated liver enzymes and elevated antimitochondrial antibody raisi ng the clinical suspicion of possible biliary cirrhosis. Recent [facility] tertiary care evaluation less than 10 days ago for ERCP with biliary stent placement with evidence of chronic pancreatitis and pseudocyst possible cholecystitis. Current Visit: Yes Status: Acute Code(s): D53.9 - NUTRITIONAL ANEMIA, UNSP ECIFIED SNOMED Code(s): 55332308 (5) History of biliary stent insertion Current Visit: Yes Status: Acute Code(s): Z98.890 - OTHER SPECIFIED POSTPROCEDURAL STATES SNOMED Code(s): 371905530 (6) Cognitive developmental delay Current Visit: Yes Status: Acute Code(s): F81.9 - DEVELOPMENTAL DISORDER OF SCHOLASTIC SKILLS, UNSPECIFIED SNOMED Code(s): 190065523 Plan: 1. Daily monitoring of liver function tests. Liver biopsy w/ IR. Continue Actigall. Assessment and plan a care discussed with Dr. Wolfe
[2019-04-07 11:48] LABS: Glucose,Whole Blood 90 mg/dL (75-99)
[2019-04-07] MEDS ORDERED: SODIUM POLYSTYRENE SULFONATE 15 GM/60 ML BOTTLE PO STA (12:46)
--- NOTE | 2019-04-07 13:23 | P.PN ---
Subjective patient was admitted the for elevated liver enzymes patient will undergo biopsy of the liver liver enzymes fairly stable patient the recent ERCP and stenting at [facility] patient is also on Depakote he appears to be for bipolar. 04/06/2019 Patient's liver enzymes are fairly stable. Patient remains on Dilantin will discuss with gastroenterology to see if this is contributing to elevated liver enzymes. Patient will undergo liver biopsy tomorrow. Patient had an episode of A. fib postanesthesia patient was not started on any anticoagulation at [facility] as it was believed to be a brief episodes secondary to anesthesia. They recommended a Holter monitor down the line when his most of lysed regarding his liver perspective and if he has episodes of A. fib then probably will need anticoagulation at that time 04/07/2019 next and patient will undergo liver biopsy today ration liver enzymes are coming down patient had couple episodes of diarrhea today did not receive Kayexalate yesterday which will be ordered today patient potassium is 5.4 will order low potassium diet Constitutional: Denied any fatigue denied any fever. Cardio vascular: denied any chest pain, palpitations Gastrointestinal denied any nausea vomiting Pulmonary: Denied any shortness of breath cough Neurologic denied any new focal deficits All inpatient medications were reviewed and appropriate changes in these medications as dictated in the interval history and assessment and plan. Objective - Vital Signs Vital signs: Vital Signs Temp 97.6 F 04/07/19 07:00 Pulse 54 L 04/07/19 08:00 Resp 14 04/07/19 08:00 BP 178/89 04/07/19 07:00 Pulse Ox 97 04/07/19 07:00 Intake & Output 04/06/19 04/07/19 04/07/19 18:59 06:59 18:59 Intake Total 250 Output Total 1450 450 Balance -1200 -450 Intake: Oral 250 Output: Urine 1450 450 Other: Voiding Method Indwelling Catheter Indwelling Catheter Indwelling Catheter # Bowel Movements 1 - Exam PHYSICAL EXAMINATION: GENERAL: The patient is alert and oriented x3, not in any acute distress. Well developed, well nourished. HEENT: Pupils are round and equally reacting to light. EOMI. No scleral icterus. No conjunctival pallor. Normocephalic, atraumatic. No pharyngeal erythema. No thyromegaly. CARDIOVASCULAR: S1 and S2 present. No murmurs, rubs, or gallops. PULMONARY: Chest is clear to auscultation, no wheezing or crackles. ABDOMEN: Soft, nontender, nondistended, normoactive bowel sounds. No palpable organomegaly. MUSCULOSKELETAL: No joint swelling or deformity. EXTREMITIES: No cyanosis, clubbing, or pedal edema. NEUROLOGICAL: Gross neurological examination did not reveal any focal deficits. SKIN: No rashes. - Labs CBC & Chem 7: 04/07/19 07:18 04/07/19 07:18 Labs: Abnormal Lab Results - Last 24 Hours (Table) 04/06/19 04/06/19 04/07/19 Range/Units 16:38 20:25 06:53 Potassium (3.5-5.1) mmol/L Chloride (98-107) mmol/L Creatinine (0.66-1.25) mg/dL Glucose (74-99) mg/dL POC Glucose (mg/dL) 246 H 274 H 66 L (75-99) mg/dL Calcium (8.4-10.2) mg/dL Total Bilirubin (0.2-1.3) mg/dL ALT (21-72) U/L Alkaline Phosphatase (38-126) U/L Total Protein (6.3-8.2) g/dL Albumin (3.5-5.0) g/dL 04/07/19 Range/Units 07:18 Potassium 5.4 H (3.5-5.1) mmol/L Chloride 109 H (98-107) mmol/L Creatinine 1.49 H (0.66-1.25) mg/dL Glucose 72 L (74-99) mg/dL POC Glucose (mg/dL) (75-99) mg/dL Calcium 8.1 L (8.4-10.2) mg/dL Total Bilirubin 1.4 H (0.2-1.3) mg/dL ALT 97 H (21-72) U/L Alkaline Phosphatase 1032 H (38-126) U/L Total Protein 4.9 L (6.3-8.2) g/dL Albumin 2.4 L (3.5-5.0) g/dL Assessment and Plan Plan: -elevated liver enzymes: Biopsy of the liver tomorrow liver enzymes are still elevated but stable at this time patient had a recent ERCP -Postanesthesia brief episode of atrial fibrillation, Not anti-coagulation with the above-mentioned reasons --Acute renal failure secondary to prerenal azotemia continue with IV fluids -Type 2 diabetes mellitus -Hypertension -Bipolar disorder
[2019-04-07] MEDS ORDERED: PROPOFOL 10 MG/ML 20 ML VIAL IV ONE (13:34)
--- NOTE | 2019-04-07 14:34 | CT ---
EXAMINATION TYPE: CT biopsy liver DATE OF EXAM: 04/07/2019 COMPARISON: NONE HISTORY: Diffuse liver disease request for random core biopsy of the liver CT DLP: 2166mGycm The procedure was explained to the patient and patient's family. The risks, complications, benefits, and alternatives were discussed and any questions were answered. Informed consent was obtained. Pa tient was placed supine on the CT table and prepped and draped in the usual sterile fashion. All elements of maximal barrier and sterile technique utilized. Prior to procedure within CT scan the re is a small amount ascites adjacent to the liver which was aspirated. Utilizing CT guidance, an 18 gauge core biopsy needle access into the right lobe of the liver was ac hieved and a single 18 gauge core sample was obtained. The patient was stable throughout the procedu re and remained stable upon discharge. IMPRESSION: 1. Successful 18 gauge core biopsy of the liver.
[2019-04-07 16:57] LABS: Glucose,Whole Blood 188 mg/dL (75-99)
[2019-04-07 19:05] LABS: Anisocytosis Moderate; Basophils % (A) 1 %; Eosinophils % (A) 1 %; HCT 31.1 % (39.0-53.0); Hypochromasia Marked; Lymphocytes # (A) 0.9 k/uL (1.0-4.8); Lymphocytes % (A) 27 %; MCH 34.7 pg (25.0-35.0); MCHC 28.9 g/dL (31.0-37.0); Macrocytosis Marked; Mean Platelet Volume 8.3; Monocytes # (A) 0.2 k/uL (0-1.0); Monocytes % (A) 6 %; Neutrophils % (A) 63 %; Platelet Count 209 k/uL (150-450); Poikilocytosis Slight; RBC 2.59 m/uL (4.30-5.90); RDW 21.7 % (11.5-15.5); WBC 3.2 k/uL (3.8-10.6)
[2019-04-07 19:42] VITALS: TEMP 96.9
[2019-04-07 20:08] LABS: Glucose,Whole Blood 207 mg/dL (75-99)
[2019-04-08 07:25] LABS: Glucose,Whole Blood 97 mg/dL (75-99)
[2019-04-08] MEDS: INSULIN ASPART (NovoLOG) 100 UNIT/ML VIAL SQ SCH ×2 (08:48→12:37)
[2019-04-08] MEDS: PANTOPRAZOLE 40 MG TABLET PO SCH (08:57)
[2019-04-08] MEDS: TAMSULOSIN 0.4 MG CAP.ER.24H PO SCH (08:57)
[2019-04-08] MEDS: DIVALPROEX ER 500 MG TAB.ER.24H PO SCH (08:57)
[2019-04-08] MEDS: URSODIOL 300 MG CAP PO SCH ×2 (08:58→12:37)
[2019-04-08] MEDS: NIFEdipine XL 30 MG TAB.ER.24 PO SCH (08:58)
[2019-04-08 09:08] VITALS: BP 137/93; PULSE 58; RESP 16
[2019-04-08 09:35] LABS: Albumin 2.6 g/dL (3.5-5.0); Calcium 8.2 mg/dL (8.4-10.2); Potassium 4.9 mmol/L (3.5-5.1); Total Bilirubin 1.4 mg/dL (0.2-1.3); Total Protein 5.1 g/dL (6.3-8.2)
[2019-04-08 09:51] LABS: Anisocytosis Moderate; Basophils % (A) 1 %; Eosinophils # (A) 0.1 k/uL (0-0.7); Eosinophils % (A) 2 %; HCT 31.7 % (39.0-53.0); HGB 9.6 gm/dL (13.0-17.5); Hypochromasia Marked; Lymphocytes # (A) 0.9 k/uL (1.0-4.8); Lymphocytes % (A) 26 %; MCHC 30.2 g/dL (31.0-37.0); Macrocytosis Marked; Mean Platelet Volume 8.9; Monocytes # (A) 0.2 k/uL (0-1.0); Monocytes % (A) 6 %; Neutrophils # (A) 2.1 k/uL (1.3-7.7); Neutrophils % (A) 63 %; Platelet Count 210 k/uL (150-450); Poikilocytosis Slight; RBC 2.73 m/uL (4.30-5.90); RDW 21.6 % (11.5-15.5); WBC 3.3 k/uL (3.8-10.6)
[2019-04-08 10:35] LABS: Mixed Population RBC Present
--- NOTE | 2019-04-08 10:52 | P.PN ---
Subjective Progress Note Date: 04/08/19 Principal diagnosis: elevated liver enzymes Status post liver biopsy yesterday. Patient is leaking ascitic fluid around puncture site. No bleeding or hematoma. Hemoglobin stable 9.6. Objective - Vital Signs Vital signs: Vital Signs Temp 96.9 F L 04/07/19 19:00 Pulse 58 L 04/08/19 09:07 Resp 16 04/08/19 09:07 BP 137/93 04/08/19 09:07 Pulse Ox 98 04/08/19 04:35 Intake & Output 04/07/19 04/08/19 04/08/19 18:59 06:59 18:59 Intake Total 480 Output Total 450 600 Balance -450 -120 Intake: Oral 480 Output: Urine 450 600 Other: Voiding Method Indwelling Catheter Indwelling Catheter Indwelling Catheter # Bowel Movements 1 - Exam General appearance: The patient is alert, in no acute distress. HET: Head is normocephalic and atraumatic. Pupils are equal and reactive. Oropharynx is clear without lesions. Neck: Supple without lymphadenopathy. Trachea midline. Heart: S1 S2. Regular rate and rhythm. Lungs: No crackles or wheezes are heard. Abdomen: Soft, mild ascites and anasarca with bowel sounds. Liver biopsy site without hematoma or bleeding. Ascitic fluid dripping from puncture site. No peritoneal signs. No palpable organomegaly or masses. Extremities: Anasarca. Neurological: No focal deficits. Strength and sensation are grossly intact. - Labs CBC & Chem 7: 04/08/19 08:46 04/08/19 08:46 Labs: Abnormal Lab Results - Last 24 Hours (Table) 04/07/19 04/07/19 04/07/19 Range/Units 16:54 18:32 20:07 WBC 3.2 L (3.8-10.6) k/uL RBC 2.59 L (4.30-5.90) m/uL Hgb 9.0 L (13.0-17.5) gm/dL Hct 31.1 L (39.0-53.0) % MCV 120.0 H (80.0-100.0) fL MCHC 28.9 L (31.0-37.0) g/dL RDW 21.7 H (11.5-15.5) % Lymphocytes # 0.9 L (1.0-4.8) k/uL Macrocytosis Marked A Chloride (98-107) mmol/L Creatinine (0.66-1.25) mg/dL Glucose (74-99) mg/dL POC Glucose (mg/dL) 188 H 207 H (75-99) mg/dL Calcium (8.4-10.2) mg/dL Total Bilirubin (0.2-1.3) mg/dL AST (17-59) U/L ALT (21-72) U/L Alkaline Phosphatase (38-126) U/L Total Protein (6.3-8.2) g/dL Albumin (3.5-5.0) g/dL 04/08/19 04/08/19 Range/Units 08:46 08:46 WBC 3.3 L (3.8-10.6) k/uL RBC 2.73 L (4.30-5.90) m/uL Hgb 9.6 L (13.0-17.5) gm/dL Hct 31.7 L (39.0-53.0) % MCV 116.0 H (80.0-100.0) fL MCHC 30.2 L (31.0-37.0) g/dL RDW 21.6 H (11.5-15.5) % Lymphocytes # 0.9 L (1.0-4.8) k/uL Macrocytosis Marked A Chloride 108 H (98-107) mmol/L Creatinine 1.53 H (0.66-1.25) mg/dL Glucose 150 H (74-99) mg/dL POC Glucose (mg/dL) (75-99) mg/dL Calcium 8.2 L (8.4-10.2) mg/dL Total Bilirubin 1.4 H (0.2-1.3) mg/dL AST 60 H (17-59) U/L ALT 94 H (21-72) U/L Alkaline Phosphatase 1159 H (38-126) U/L Total Protein 5.1 L (6.3-8.2) g/dL Albumin 2.6 L (3.5-5.0) g/dL Assessment and Plan (1) Elevated liver enzymes Narrative/Plan: s/p recent ERCP biliary stent [facility] with findings of chronic pancreatitis and pseudocyst biliary stricture of main bile duct. Current Visit: Yes Status: Acute Code(s): R74.8 - ABNORMAL LEVELS OF OTHER SERUM ENZYMES SNOMED Code(s): 731947883 (2) Antimitochondrial antibody positive Narrative/Plan: Possible underlying primary biliary cirrhosis. Status post liver biopsy pathology pending. Current Visit: Yes Status: Acute Code(s): R76.8 - OTHER SPECIFIED ABNORMAL IMMUNOLOGICAL FINDINGS IN SERUM SNOMED Code(s): 007583102 (3) Chronic pancreatitis Narrative/Plan: Etiology unclear possible idiopathic Current Visit: Yes Status: Acute Code(s): K86.1 - OTHER CHRONIC PANCREATITIS SNOMED Code(s): 866273434 (4) Macrocytic anemia Narrative/Plan: 78-year-old gentleman admitted with acute macrocytic anemia without overt bleeding with development of ascites and acute kidney injury clinically no evidence of active GI bleed such as hematemesis hematochezia or melena. Under lying elevated liver enzymes and elevated antimitochondrial antibody raising the clinical suspicion of possible biliary cirrhosis. Recent [facility] tertiary care evaluation less than 10 days ago for ERCP with biliary stent placement with evidence of chronic pancreatitis and pseudocyst possible cholecystitis. Current Visit: Yes Status: Acute Code(s): D53.9 - NUTRITIONAL ANEMIA, UNSPECIFIED SNOMED Code(s): 44109203 (5) History of biliary stent insertion Current Visit: Yes Status: Acute Code(s): Z98.890 - OTHER SPECIFIED POSTPROCEDURAL STATES SNOMED Code(s): 404615531 (6) Cognitive developmental delay Current Visit: Yes Status: Acute Code(s): F81.9 - DEVELOPMENTAL DISORDER OF SCHOLASTIC SKILLS, UNSPECIFIED SNOMED Code(s): 203532450 Plan: 1. He can be discharged from a GI standpoint. Ursodiol 300 mg before meals 3 times a day. Return to office in 2-3 weeks with outpatient CMP in 1 week for reevaluation and discussion of biopsy results. Follow with [facility] secondary to recent ERCP bili restent placement as previously advised. Diet as tolerated with focus on low-salt. Assessment and plan a care discussed with Dr. Wolfe
[2019-04-08 12:12] LABS: Glucose,Whole Blood 245 mg/dL (75-99)
--- NOTE | 2019-04-08 15:33 | P.DS ---
Providers Date of admission: 04/03/19 16:09 Attending physician: Isis Sloan Consults: 04/05/19 22:12 Consult Physician Stat Consulting Provider: Deanna Macedo Consult Reason/Comments: bradycardia Do you want consulting provider notified?: Already Contacted 04/06/19 10:18 Consult to Anesthesia Routine Consulting Provider: Anesthesia,Services Consult Reason/Comments: liver biopsy on 04/07/19 Primary care physician: Corinna Newsome [facility] Course: patient was admitted the for elevated liver enzymes patient will undergo biopsy of the liver liver enzymes fairly stable patient the recent ERCP and stenting at [facility] patient is also on Depakote he appears to be for bipolar. 04/06/2019 Patient's liver enzymes are fairly stable. Patient remains on Dilantin will discuss with gastroenterology to see if this is contributing to elevated liver enzymes. Patient will undergo liver biopsy tomorrow. Patient had an episode of A. fib postanesthesia patient was not started on any anticoagulation at [facility] as it was believed to be a brief episodes secondary to anesthesia. They recommended a Holter monitor down the line when his most of lysed regarding his liver perspective and if he has episodes of A. fib then probably will need anticoagulation at that time 04/07/2019 next and patient will undergo liver biopsy today ration liver enzymes are coming down patient had couple episodes of diarrhea today did not receive Kayexalate yesterday which will be ordered today patient potassium is 5.4 will order low potassium diet 04/08/2019 Patient underwent biopsy versus results are pending and patient the potassium improved. Patient was diagnosed with the primary biliary cirrhosis although uncommon in men. Patient also has a pancreatic pseudocyst and chronic pancreatitis etiology of chronic pancreatitis is unknown. Patient will be discharged today patient liver enzymes are stable and improved PHYSICAL EXAMINATION: GENERAL: The patient is alert and oriented x3, not in any acute distress. Well developed, well nourished. HEENT: Pupils are round and equally reacting to light. EOMI. No scleral icterus. No conjunctival pallor. Normocephalic, atraumatic. No pharyngeal erythema. No thyromegaly. CARDIOVASCULAR: S1 and S2 present. No murmurs, rubs, or gallops. PULMONARY: Chest is clear to auscultation, no wheezing or crackles. ABDOMEN: Soft, nontender, nondistended, normoactive bowel sounds. No palpable organomegaly. MUSCULOSKELETAL: No joint swelling or deformity. EXTREMITIES: No cyanosis, clubbing, or pedal edema. NEUROLOGICAL: Gross neurological examination did not reveal any focal deficits. SKIN: No rashes. Assessment and Plan Plan: -elevated liver enzymes: Had a liver biopsy results of which are pending. Liver enzyme elevation can be related to primary biliary cirrhosis -Primary biliary cirrhosis -Pancreatic pseudocyst doesn't have any pain no indication for surgery. -Postanesthesia brief episode of atrial fibrillation, Not on anti-coagulation with the above-mentioned reasons --Acute renal failure secondary to prerenal azotemia improved now -Type 2 diabetes mellitus -Hypertension -Bipolar disorder Patient Condition at Discharge: Fair Plan - Discharge Summary Discharge Rx Participant: No New Discharge Prescriptions: New Ursodiol [Actigall] 300 mg PO AC-TID #90 capsule Continue Cholecalciferol [Vitamin D3 (25 Mcg = 1000 Iu)] 2,000 unit PO DAILY Calcitriol [Rocaltrol] 0.25 mcg PO Q48H Tamsulosin [Flomax] 0.4 mg PO DAILY Ferrous Sulfate [Iron (65 MG Elemental)] 325 mg PO BID Sennosides [Senna] 8.6 mg PO HS PRN PRN Reason: Constipation Divalproex Sodium [Divalproex Sodium ER] 1,000 mg PO DAILY Insulin Aspart [NovoLOG Flexpen] 5 units SQ AC-TID Polyethylene Glycol 3350 [Miralax] 17 gm PO DAILY PRN PRN Reason: Constipation Cyanocobalamin (Vitamin B-12) [Vitamin B-12] 1,000 mcg PO DAILY Dulaglutide [Trulicity] 0.75 mg SQ Q7D Glucerna Shake 1 can PO BID NIFEdipine [NIFEdipine ER] 30 mg PO DAILY Pantoprazole Sodium [Protonix] 40 mg PO DAILY Discontinued Simvastatin [Zocor] 40 mg PO HS Metoprolol Tartrate [Lopressor] 12.5 mg PO BID Acetaminophen Tab [Tylenol Tab] 650 mg PO Q6H PRN PRN Reason: Pain Discharge Medication List Calcitriol [Rocaltrol] 0.25 mcg PO Q48H 12/29/16 [History] Cholecalciferol [Vitamin D3 (25 Mcg = 1000 Iu)] 2,000 unit PO DAILY 12/29/16 [History] Ferrous Sulfate [Iron (65 MG Elemental)] 325 mg PO BID 12/29/16 [History] Tamsulosin [Flomax] 0.4 mg PO DAILY 12/29/16 [History] Divalproex Sodium [Divalproex Sodium ER] 1,000 mg PO DAILY 03/19/19 [History] Insulin Aspart [NovoLOG Flexpen] 5 units SQ AC-TID 03/19/19 [History] Polyethylene Glycol 3350 [Miralax] 17 gm PO DAILY PRN 03/19/19 [History] Sennosides [Senna] 8.6 mg PO HS PRN 03/19/19 [History] Cyanocobalamin (Vitamin B-12) [Vitamin B-12] 1,000 mcg PO DAILY 04/03/19 [History] Dulaglutide [Trulicity] 0.75 mg SQ Q7D 04/03/19 [History] Glucerna Shake 1 can PO BID 04/03/19 [History] NIFEdipine [NIFEdipine ER] 30 mg PO DAILY 04/03/19 [History] Pantoprazole Sodium [Protonix] 40 mg PO DAILY 04/03/19 [History] Ursodiol [Actigall] 300 mg PO AC-TID #90 capsule 04/08/19 [Rx] Follow up Appointment(s)/Referral(s): Corinna Barrera III, MD [Primary Care Provider] - 1-2 days Mini Peralta NPC [Nurse Practitioner] - 3 Weeks Deanna Macedo MD [STAFF PHYSICIAN] - 2 Weeks Activity/Diet/Wound Care/Special Instructions: Homecare setup to visit 04/09. Call and make appointments listed above. Empty ostomy bag for drainage collection prn and change prn. Activity as tolerated. Diet as tolerated. Discharge Disposition: HOME WITH HOME HEALTH SERVICES
--- NOTE | 2019-04-13 01:01 | CDI ---
Documentation Clarification Form Date: 04/13/19 From: Fish Purcell Phone: call [phone] Admit Date: 04/03/2019 4:09:00 PM Patient Name: Nishant Perkins Visit Number: [id number] Discharge Date: 04/08/2019 1:25:00 PM ATTENTION: The Clinical Documentation Specialists (CDI) and [facility] Coding Staff appreciate your assistance in clarifying documentation. Please respond to the clarification below the line at the bottom and electronically sign. The CDI & [facility] Coding staff will review the response and follow-up if needed. Please note: Queries are made part of the Legal Health Record. If you have any questions, please contact the author of this message via ITS. Dr. Balbina Mayen The final diagnosis of the pathology report states "Patchy sinusoidal dilatation with perisinusoidal fibrosis, suggestive of chronic venous outflow obstruction.No significant inflammation or evidence of primary biliary cholangitis.Mild periportal fibrosis" and "Therefore, in my opinion, the elevated alkaline phosphatase is mostly secondary to vascular or cardiac compromise rather than a biliary cause". Documentation states: Primary biliary cirrhosis. Patient history/risk factors: ascites,pancreatitis. In your professional opinion, do you agree with the pathology report specifying as Hepato veno-occlusive disease and Heptic fibrosis ? Yes No Other (please specify) Unable to determine Unable to determine MTDD
== END 2019-04-08 13:25 | disposition home health service (06) | DRG 433 ==
LOC: EC 14:10 → 4SSUR 16:09
PROVIDERS: ADMIT Hospitalist; ATTEND Hospitalist
PROC: 0FB13ZX Excision of Right Lobe Liver, Percutaneous Approach, Diagnostic (ICD-10-PCS; principal; 2019-04-07 13:30)
DX: K74.3 Primary biliary cirrhosis (principal); N17.9 Acute kidney failure, unspecified; R18.8 Other ascites; K86.3 Pseudocyst of pancreas; J90 Pleural effusion, not elsewhere classified; K86.1 Other chronic pancreatitis; I48.0 Paroxysmal atrial fibrillation; I10 Essential (primary) hypertension; D69.6 Thrombocytopenia, unspecified; D53.9 Nutritional anemia, unspecified; E11.51 Type 2 diabetes mellitus with diabetic peripheral angiopathy without gangrene; E78.5 Hyperlipidemia, unspecified; F31.9 Bipolar disorder, unspecified; I25.10 Atherosclerotic heart disease of native coronary artery without angina pectoris; F81.9 Developmental disorder of scholastic skills, unspecified; Z79.4 Long term (current) use of insulin; Z79.899 Other long term (current) drug therapy; Z82.5 Family history of asthma and other chronic lower respiratory diseases; Z85.51 Personal history of malignant neoplasm of bladder; Z87.891 Personal history of nicotine dependence; Z95.5 Presence of coronary angioplasty implant and graft; I25.2 Old myocardial infarction; Z91.09 Other allergy status, other than to drugs and biological substances; Z98.41 Cataract extraction status, right eye; Z80.9 Family history of malignant neoplasm, unspecified
CPT/HCPCS: 36415; 47000; 74176; 76705; 77012; 80048; 80053; 81001; 83036; 83735; 84100; 84439; 84443; 85025; 85049; 85610; 85730; 87086; 88307; 88313; 93005; 99285

== ENCOUNTER 2019-04-27 11:59 | Inpatient (IN) | payer MEDICARE, OTHER ==
[2019-04-27] MEDS ORDERED: SODIUM CHLORIDE 0.9% 500 ML 500 ML IV ONE (12:09)
--- NOTE | 2019-04-27 12:37 | ED ---
Extremity Problem HPI - General Chief complaint: Extremity Problem,Nontraumatic Stated complaint: cellulitis Time Seen by Provider: 04/27/19 12:08 Source: patient, RN/MD, Caregiver Mode of arrival: wheelchair Limitations: physical limitation - History of Present Illness Initial comments: 79-year-old male with developmental delays, history of bladder cancer, history of elevated potassium, diabetes, hypertension previous myocardial infarction presenting today for possible sepsis rule out-sent in to the emergency department by her primary care provider. Patient lost her care home, he was evaluated by physician after refusing to eat this morning which is unlike him. Patient is currently being treated for lower extremity cellulitis-has a small area of redness on the left foot. Abx is bactrim. Caretakers who are bedside who are providing most of the history state that the patient was also noted to have leg swelling state that this has been on ongoing issue since she was discharged from the hospital earlier this month. They state that since his most recent hospitalization patient has seemed more fatigued, but today this seemed more exaggerated and patient refused to eat. When he discussed this with patient's provider he was sent to the emergency for for further evaluation. Caretakers deny fevers. They deny cough, or complaints of chest pain. Patient states that he has no complaints. He states he is only tired. Denies chest pain or shortness of breath. Patient does not appear short of breath upon history taking. Remaining review of system negative. - Related Data Home Medications Medication Instructions Recorded Confirmed Calcitriol [Rocaltrol] 0.25 mcg PO Q48H 12/29/16 04/03/19 Cholecalciferol [Vitamin D3 (25 2,000 unit PO DAILY 12/29/16 04/03/19 Mcg = 1000 Iu)] Ferrous Sulfate [Iron (65 MG 325 mg PO BID 12/29/16 04/03/19 Elemental)] Tamsulosin [Flomax] 0.4 mg PO DAILY 12/29/16 04/03/19 Divalproex Sodium [Divalproex 1,000 mg PO DAILY 03/19/19 04/03/19 Sodium ER] Insulin Aspart [NovoLOG Flexpen] 5 units SQ AC-TID 03/19/19 04/03/19 Polyethylene Glycol 3350 [Miralax] 17 gm PO DAILY PRN 03/19/19 04/03/19 Sennosides [Senna] 8.6 mg PO HS PRN 03/19/19 04/03/19 Cyanocobalamin (Vitamin B-12) 1,000 mcg PO DAILY 04/03/19 04/03/19 [Vitamin B-12] Dulaglutide [Trulicity] 0.75 mg SQ Q7D 04/03/19 04/03/19 Glucerna Shake 1 can PO BID 04/03/19 04/03/19 NIFEdipine [NIFEdipine ER] 30 mg PO DAILY 04/03/19 04/03/19 Pantoprazole Sodium [Protonix] 40 mg PO DAILY 04/03/19 04/03/19 Previous Rx's Medication Instructions Recorded Ursodiol [Actigall] 300 mg PO AC-TID #90 capsule 04/08/19 Allergies Allergy/AdvReac Type Severity Reaction Status Date / Time lithium Allergy Unknown Verified 04/27/19 12:06 Review of Systems ROS Statement: Those systems with pertinent positive or pertinent negative responses have been documented in the HPI. ROS Other: All systems not noted in ROS Statement are negative. Past Medical History Past Medical History: Cancer, Diabetes Mellitus, Hyperlipidemia, Hypertension, Myocardial Infarction ([place]) Additional Past Medical History / Comment(s): Mental handicap-approx capacity at age 9.,bladder Ca approx 2013,elevated potassium Last Myocardial Infarction Date:: 2009 History of Any Multi-Drug Resistant Organisms: None Reported Past Surgical History: Heart Catheterization With Stent Additional Past Surgical History / Comment(s): bladder tumors removed; Cataract R eye, stent place in pancreatic duct Past Anesthesia/Blood Transfusion Reactions: No Reported Reaction Date of Last Stent Placement:: 2009 Past Psychological History: No Psychological Hx Reported Smoking Status: Former smoker Past Alcohol Use History: None Reported Past Drug Use History: None Reported - Past Family History Father Family Medical History: Cancer Additional Family Medical History / Comment(s): lung Mother Family Medical History: COPD Additional Family Medical History / Comment(s): bowel surgeries General Exam - General Exam Comments Initial Comments: General: The patient is awake drowsy (sugar 26 at this time) Eye: +1 mm pupils are equal, round and reactive to light, extra-ocular movements are intact. No nystagmus. There is normal conjunctiva bilaterally. No signs of icterus. Ears, nose, mouth and throat: There are moist mucous membranes and no oral lesions. Neck: The neck is supple, there is no tenderness or JVD. Cardiovascular: There is a regular rate and rhythm. No murmur, rub or gallop is appreciated. Respiratory: Respirations are non-labored, breath sounds are equal. No wheezes, stridor, or rhonchi. Rales noted b/l. Gastrointestinal: Soft, non-distended, non-tender abdomen without masses or o rganomegaly noted. There is no rebound or guarding present. Musculoskeletal: Normal ROM, no tenderness. Strength 5/5. Sensation intact. Radial and DP pulses equal bilaterally 2+. Neurological: A&O x 3. CN II-XII intact grossly, There are no obvious motor or sensory deficits. Coordination appears grossly intact. Speech is normal. Skin: Skin is warm and dry and no rashes or lesions are noted. B/l LE edema, very slight redness Very mild redness, with small blister between great toe of the left foot. Psychiatric: Cooperative Limitations: physical limitation Course Vital Signs 04/27/19 04/27/19 12:01 14:13 Pulse Rate 62 58 L Respiratory 8 L 16 Rate Blood Pressure 143/63 116/62 O2 Sat by Pulse 98 94 L Oximetry Medical Decision Making - Medical Decision Making 79-year-old male presenting for fatigue, possible failed outpatient treatment of sinusitis. There is no overt signs of infection on physical examination. Patient has no fever. He has no leukocytosis patient is noted to have leukopenia which is present on chart review from previous visits. Patient does have noted physical examination finding of bilateral lower extremity edema. Patient does have mild rales no signs of respiratory distress. Able to lay flat. Vital signs stable. No distress. Initial laboratory study review returned with a critical value of sugar of 26 patient denies any breakfast. Patient has been labile blood sugar recently by staff that is at bedside. Patient was given an amp of D50. He immediately had more energy was more alert than his previous drowsy state. Patient did not have focal neurological deficits. Potassium was also noted to be mildly elevated patient has had previous issues with hyperkalemia. Patient was given calcium gluconate. Patient be given IV Lasix for both the elevated BMP with concern for congestive heart failure as well as for excretion of potassium and treatment of hyperkalemia. Patient's chest x-ray concerning for possible pneumonia with superimposed vascular congestion. EKG revealed prolonged QT with a low voltage QRS. There was a consecutive PVCs. However these are not present on patient's monitor. No ST elevation or depression. Patient's lactic acid is within normal limits. I discussed the case in detail threatening provider Dr. Reed reviewed EKG as well as laboratory studies. This time, patient for CHF, pneumonia, hyperkalemia, hypoglycemia. hourly blood glucose ordered. - Lab Data Result diagrams: 04/27/19 12:31 04/27/19 12:31 Lab Results 04/27/19 04/27/19 04/27/19 Range/Units 12:31 12:31 12:31 WBC 3.1 L (3.8-10.6) k/uL RBC 2.38 L (4.30-5.90) m/uL Hgb 8.5 L (13.0-17.5) gm/dL Hct 27.1 L (39.0-53.0) % MCV 113.4 H (80.0-100.0) fL MCH 35.6 H (25.0-35.0) pg MCHC 31.4 (31.0-37.0) g/dL RDW 18.8 H (11.5-15.5) % Plt Count 105 L (150-450) k/uL Neutrophils % 64 % Lymphocytes % 25 % Monocytes % 6 % Eosinophils % 2 % Basophils % 0 % Neutrophils # 2.0 (1.3-7.7) k/uL Lymphocytes # 0.8 L (1.0-4.8) k/uL Monocytes # 0.2 (0-1.0) k/uL Eosinophils # 0.1 (0-0.7) k/uL Basophils # 0.0 (0-0.2) k/uL Manual Slide Review Performed Hypochromasia Marked Poikilocytosis Moderate Anisocytosis Slight Macrocytosis Marked A Sodium 143 (137-145) mmol/L Potassium 5.6 H (3.5-5.1) mmol/L Chloride 115 H (98-107) mmol/L Carbon Dioxide 21 L (22-30) mmol/L Anion Gap 7 mmol/L BUN 34 H (9-20) mg/dL Creatinine 1.72 H (0.66-1.25) mg/dL Est GFR (CKD-EPI)AfAm 43 (>60 ml/min/1.73 sqM) Est GFR (CKD-EPI)NonAf 38 (>60 ml/min/1.73 sqM) Glucose 26 L* (74-99) mg/dL POC Glucose (mg/dL) (75-99) mg/dL POC Glu Head Of Science ID Plasma Lactic Acid Alejandro 1.4 (0.7-2.0) mmol/L Calcium 8.4 (8.4-10.2) mg/dL Total Bilirubin 0.7 (0.2-1.3) mg/dL AST 31 (17-59) U/L ALT 28 (21-72) U/L Alkaline Phosphatase 291 H (38-126) U/L NT-Pro-B Natriuret Pep pg/mL Total Protein 5.7 L (6.3-8.2) g/dL Albumin 2.9 L (3.5-5.0) g/dL 04/27/19 04/27/19 Range/Units 12:31 13:18 WBC (3.8-10.6) k/uL RBC (4.30-5.90) m/uL Hgb (13.0-17.5) gm/dL Hct (39.0-53.0) % MCV (80.0-100.0) fL MCH (25.0-35.0) pg MCHC (31.0-37.0) g/dL RDW (11.5-15.5) % Plt Count (150-450) k/uL Neutrophils % % Lymphocytes % % Monocytes % % Eosinophils % % Basophils % % Neutrophils # (1.3-7.7) k/uL Lymphocytes # (1.0-4.8) k/uL Monocytes # (0-1.0) k/uL Eosinophils # (0-0.7) k/uL Basophils # (0-0.2) k/uL Manual Slide Review Hypochromasia Poikilocytosis Anisocytosis Macrocytosis Sodium (137-145) mmol/L Potassium (3.5-5.1) mmol/L Chloride (98-107) mmol/L Carbon Dioxide (22-30) mmol/L Anion Gap mmol/L BUN (9-20) mg/dL Creatinine (0.66-1.25) mg/dL Est GFR (CKD-EPI)AfAm (>60 ml/min/1.73 sqM) Est GFR (CKD-EPI)NonAf (>60 ml/min/1.73 sqM) Glucose (74-99) mg/dL POC Glucose (mg/dL) 244 H (75-99) mg/dL POC Glu Head Of Science Dana Vick Plasma Lactic Acid Alejandor (0.7-2.0) mmol/L Calcium (8.4-10.2) mg/dL Total Bilirubin (0.2-1.3) mg/dL AST (17-59) U/L ALT (21-72) U/L Alkaline Phosphatase (38-126) U/L NT-Pro-B Natriuret Pep 7120 pg/mL Total Protein (6.3-8.2) g/dL Albumin (3.5-5.0) g/dL - EKG Data EKG Comments: Ventricular rate 70 bpm, OR interval 148 ms, QRS ration 98 ms, QT/QTC 452/48 ms. This is sinus rhythm with occasional consecutive premature ventricular complexes. Prolonged QT is noted as well as a low voltage QRS. No ST elevation or depression noted in EKG was partially interpreted as well as reviewed by my attending provider Dr. Reed Disposition Clinical Impression: CHF (congestive heart failure), Pneumonia, Fatigue, Hyperkalemia, Hypoglycemia Disposition: ADMITTED IP TO THIS [facility] Condition: Stable Is patient prescribed a controlled substance at d/c from ED?: No Referrals: Corinna Barrera III, MD [Primary Care Provider] - 1-2 days Time of Disposition: 15:22 Decision to Admit Reason: Admit from EC Decision Date: 04/27/19 Decision Time: 15:22
[2019-04-27 12:39] LABS: Anisocytosis Slight; Basophils % (A) 0 %; Eosinophils # (A) 0.1 k/uL (0-0.7); Eosinophils % (A) 2 %; HCT 27.1 % (39.0-53.0); HGB 8.5 gm/dL (13.0-17.5); Hypochromasia Marked; Lymphocytes # (A) 0.8 k/uL (1.0-4.8); Lymphocytes % (A) 25 %; MCH 35.6 pg (25.0-35.0); MCHC 31.4 g/dL (31.0-37.0); MCV 113.4 fL (80.0-100.0); Macrocytosis Marked; Mean Platelet Volume 8.7; Monocytes # (A) 0.2 k/uL (0-1.0); Monocytes % (A) 6 %; Neutrophils % (A) 64 %; Platelet Count 105 k/uL (150-450); Poikilocytosis Moderate; RBC 2.38 m/uL (4.30-5.90); RDW 18.8 % (11.5-15.5); WBC 3.1 k/uL (3.8-10.6)
[2019-04-27 12:56] LABS: Albumin 2.9 g/dL (3.5-5.0); Calcium 8.4 mg/dL (8.4-10.2); Potassium 5.6 mmol/L (3.5-5.1); Total Bilirubin 0.7 mg/dL (0.2-1.3); Total Protein 5.7 g/dL (6.3-8.2)
[2019-04-27] MEDS ORDERED: DEXTROSE 50% SYRINGE 50 ML IVP STA (13:11)
[2019-04-27 13:30] LABS: Glucose,Whole Blood 244 mg/dL (75-99)
--- NOTE | 2019-04-27 14:19 | XR ---
EXAMINATION TYPE: XR chest 2V DATE OF EXAM: 04/27/2019 COMPARISON: 09/09/2010 TECHNIQUE: PA and lateral views submitted. HISTORY: Chest pain FINDINGS: Heart is prominent is bilateral lower lobe infiltrate. No overt failure or pneumothorax. No pleural e ffusion. Heart size mildly prominent. Underlying COPD suspected. Hypertrophic and degenerative change of the spine. Hyperinflation suggests COPD. IMPRESSION: 1. Bilateral lower lobe infiltrate and small effusion. Correlate for pneumonia otherwise consider [employer] D with superimposed venous congestion.
[2019-04-27] MEDS ORDERED: FUROSEMIDE 10 MG/ML 4 ML VIAL IV STA (15:02)
[2019-04-27] MEDS ORDERED: NALOXONE 0.4 MG/ML 1 ML VIAL IV PRN (15:14)
[2019-04-27] MEDS ORDERED: CALCIUM GLUCONATE 1 GM in SODIUM CHLORIDE 0.9% 100 ML IVPB ONE (15:16)
[2019-04-27] MEDS: SODIUM CHLORIDE 0.9% 1,000 ML IV SCH (15:51)
[2019-04-27 17:46] LABS: Glucose,Whole Blood 70 mg/dL (75-99)
[2019-04-27] MEDS ORDERED: POLYETHYLENE GLYCOL 3350 17 GM POWD.PACK PO PRN (21:34)
[2019-04-27] MEDS ORDERED: ACETAMINOPHEN TAB 325 MG TAB PO PRN (21:34)
[2019-04-27] MEDS ORDERED: SENNOSIDES 8.6 MG TAB PO PRN (21:34)
[2019-04-27 22:27] LABS: Glucose,Whole Blood 180 mg/dL (75-99)
[2019-04-27] MEDS: CALCITRIOL 0.25 MCG CAP PO SCH (22:56)
--- NOTE | 2019-04-28 05:43 | HP ---
HISTORY AND PHYSICAL DATE OF SERVICE: 04/27/2019 CHIEF COMPLAINT: Bilateral leg cellulitis. HISTORY OF PRESENT ILLNESS: This 79-year-old gentleman with a past medical history of multiple medical problems including diabetes mellitus, hypertension, hyperlipidemia, myocardial infarction, history of mentally handicap, history of CAD stent being followed by Dr. Barrera in the outpatient setting is complaining of bilateral leg swelling and erythema. The patient was recently admitted to [facility] with features of elevated liver enzymes and the liver core biopsy done during that time was unremarkable except chronic cholestatic changes and primary biliary cirrhosis suspected on a clinical basis. Currently the patient is complaining of pain and swelling and the cellulitis of which he came to [facility] and was admitted for further evaluation treatment. The patient is on antibiotic in the form of Bactrim. The patient is unable to provide a coherent history. Most of the history taken from my discussion with staff and discussion with the ER physician at this time. The patient is complaining of some coldness also. PAST MEDICAL HISTORY: History of diabetes, hypertension, hyperlipidemia, history of myocardial infarction, mentally handicapped, remote history of nicotine dependence. MEDICATIONS: Medications prior to admission include: 1. Bactrim DS 1 p.o. b.i.d. 2. NovoLog 5 units a.c. t.i.d. 3. Iron sulfate 325 mg p.o. b.i.d. 4. Vitamin D3, 2000 units p.o. daily. 5. Rocaltrol 0.25 mcg q.48 hours. 6. MiraLAX 17 g daily p.r.n. 7. Depakote 1000 mg p.o. daily. 8. Vitamin B12, 1000 mcg p.o. daily. 9. Tylenol 650 q.6 p.r.n. 10.Flomax 0.4 daily. 11.Senna 17.2 mg q.h.s. p.r.n. ALLERGIES: Allergies are LITHIUM. FAMILY HISTORY: History of lung cancer in the family. SOCIAL HISTORY: Previous history of smoking. No history of alcohol intake. REVIEW OF SYSTEMS: ENT: No diminished hearing or diminished vision. CARDIOVASCULAR SYSTEM: No angina. RESPIRATORY SYSTEM: No cough. GI: No nausea. : No dysuria. NERVOUS SYSTEM: No numbness. Has generalized weakness. ALLERGY/IMMUNOLOGY: No asthma or hayfever. MUSCULOSKELETAL: As mentioned earlier. HEMATOLOGY/ONCOLOGY: No history of anemia. ENDOCRINE: No history of hypothyroidism. CONSTITUTIONAL: As mentioned earlier. DERMATOLOGY: Negative. RHEUMATOLOGY: Negative. PSYCHIATRY: As mentioned earlier. PHYSICAL EXAMINATION: The patient is alert and oriented x3. Pulse is 61, blood pressure 109/37, respiration 18, temperature normal, pulse ox 97% on room air. HEENT: Conjunctivae normal. Oral mucosa moist. Neck is no jugular venous distention. No carotid bruit. No lymph node enlargement. CARDIOVASCULAR: S1, S2, muffled. No S3, no S4. RESPIRATORY: Breath sounds diminished in the bases. A few scattered rhonchi. No crackles. ABDOMEN: Soft, nontender. No mass palpable. LEGS: Bilateral leg swelling and erythema and tenderness also present. NERVOUS SYSTEM: Higher function as mentioned. Moves all 4 limbs. No focal deficits. LYMPHATICS: No lymphadenopathy of the neck, axillae or groin. SKIN: As mentioned earlier. JOINTS: No active deforming arthropathy. LABS: WBC 3.1, hemoglobin is 8.5, platelets are 105. Sodium 142, potassium 5.6. Creatinine is 1.72. The alkaline phosphatase is 291. Glucose is 26 and 244. ASSESSMENT: 1. Bilateral leg swelling and cellulitis with failure of outpatient treatment. 2. Diabetes mellitus type 2 with hypoglycemia, uncontrolled. 3. Increased creatinine with chronic kidney disease stage 3. 4. Hyperkalemia, mild. 5. Mild pancytopenia of undetermined etiology. 6. Elevated alkaline phosphatase. 7. Recent liver biopsy inconclusive pending secondary consultation for rule out primary biliary cirrhosis, chronic cholestatic findings. 8. Diabetes mellitus type 2. 9. Hypertension. 10.Hyperlipidemia. 11.History of myocardial infarction. 12.History of mentally handicapped. 13.History of coronary artery disease, stent. 14.History of bladder tumor. 15.History of cataracts. 16.Remote history of nicotine dependence. 17.FULL CODE. RECOMMENDATIONS AND DISCUSSION: This 79-year-old gentleman who presented with multiple complex medical issues, will monitor the patient closely, continue the current medications, continue symptomatic treatment. Will initiate broad-spectrum IV antibiotics, infectious disease evaluation. Otherwise I recommend checking for TSH and cultures and as well as a 2D echo with Doppler. Prognosis overall guarded because of multiple complex medical issues. Further recommendations to follow. A copy of dictation forwarded to Dr. Barrera who is the primary physician. MMODL / IJN: [id number] / MAR
[2019-04-28 06:29] LABS: Glucose,Whole Blood 105 mg/dL (75-99)
[2019-04-28 06:32] LABS: Anisocytosis Slight; Basophils % (A) 0 %; Eosinophils % (A) 2 %; HCT 23.7 % (39.0-53.0); HGB 7.3 gm/dL (13.0-17.5); Hypochromasia Moderate; Lymphocytes # (A) 0.4 k/uL (1.0-4.8); Lymphocytes % (A) 18 %; MCH 34.9 pg (25.0-35.0); MCHC 30.9 g/dL (31.0-37.0); Macrocytosis Marked; Mean Platelet Volume 8.8; Monocytes # (A) 0.2 k/uL (0-1.0); Monocytes % (A) 6 %; Neutrophils # (A) 1.7 k/uL (1.3-7.7); Neutrophils % (A) 71 %; Poikilocytosis Slight; RDW 18.7 % (11.5-15.5); WBC 2.4 k/uL (3.8-10.6)
[2019-04-28] MEDS: INSULIN ASPART (NovoLOG) 100 UNIT/ML VIAL SQ SCH ×4 (06:38→21:12)
[2019-04-28 06:48] LABS: Calcium 8.4 mg/dL (8.4-10.2); Potassium 5.3 mmol/L (3.5-5.1)
[2019-04-28 06:50] LABS: Platelet Count 95 k/uL (150-450)
[2019-04-28] MEDS ORDERED: INSULIN ASPART (NovoLOG) 100 UNIT/ML VIAL SQ SCH (07:30)
--- NOTE | 2019-04-28 08:26 | P.CRDCN ---
History of Present Illness Consult date: 04/28/19 Requesting physician: Isis Sloan Consult reason: congestive heart failure Chief complaint: Bilateral lower extremity swelling and redness History of present illness: This is a 79-year-old gentleman who has history of diabetes, hypertension, hyperlipidemia, peripheral vascular disease, chronically low white blood cell count, history of bladder cancer, recent hepatic mass diagnosis, h istory of thrombocytopenia, chronic renal failure, cognitive delay, follows with Dr. Macedo in the office. Most of the history was obtained from the medical record, patient is currently being treated for lower extremity cellulitis with Bactrim as an outpatient, he apparently did not eat his br eakfast which is quite unusual for him and they were concerned that he may have some infection. He was admitted to the hospital for that reason. According to the patient, he denies having any shortness of breath, no chest discomfort. He was noted to have an abnormal BNP and for this reason a cardiology consultation was requested. His chest x-ray on presentation here showed a bilateral infiltra te and small effusion, correlate for pneumonia. EKG shows a normal sinus rhythm with occasional PVCs. Blood pressure on arrival 142/60 with a heart rate in the 60s, 98% on room air. Blood pressure this morning 128/60 with a heart rate in the 70s, 94% on 2 L of oxygen. Laboratory data was reviewed, white blood cell count 2.4, hemoglobin 7.3, platelet count 95. Sodium 142, potassium 5.3, BUN 32 and creatinine 1.8. Glucose on arrival 26. Troponin was negative, BNP level 7120. Plasma lactic acid was 1.4, TSH 8.2. At the time of my examination this morning, patient is sitting up comfortably in bed, he does have a productive cough, mildly yellow in color. Past Medical History Past Medical History: Cancer, Diabetes Mellitus, Hyperlipidemia, Hypertension, Myocardial Infarction ([place]) Additional Past Medical History / Comment(s): Mental handicap-approx capacity at age 9.,bladder Ca approx 2013,elevated potassium Last Myocardial Infarction Date:: 2009 History of Any Multi-Drug Resistant Organisms: None Reported Past Surgical History: Heart Catheterization With Stent Additional Past Surgical History / Comment(s): bladder tumors removed; Cataract R eye, stent place in pancreatic duct Past Anesthesia/Blood Transfusion Reactions: No Reported Reaction Date of Last Stent Placement:: 2009 Past Psychological History: No Psychological Hx Reported Additional Psychological History / Comment(s): mentally handicapped Smoking Status: Never smoker Past Alcohol Use History: None Reported Additional Past Alcohol Use History / Comment(s): quit smoking 2009,1ppd Past Drug Use History: None Reported - Past Family History Father Family Medical History: Cancer Additional Family Medical History / Comment(s): lung Mother Family Medical History: COPD Additional Family Medical History / Comment(s): bowel surgeries Medications and Allergies Home Medications Medication Instructions Recorded Confirmed Type Calcitriol [Rocaltrol] 0.25 mcg PO Q48H 12/29/16 04/27/19 History Cholecalciferol [Vitamin D3 (25 2,000 unit PO DAILY 12/29/16 04/27/19 History Mcg = 1000 Iu)] Ferrous Sulfate [Iron (65 MG 325 mg PO BID 12/29/16 04/27/19 History Elemental)] Tamsulosin [Flomax] 0.4 mg PO DAILY 12/29/16 04/27/19 History Divalproex Sodium [Divalproex 1,000 mg PO DAILY 03/19/19 04/27/19 History Sodium ER] Insulin Aspart [NovoLOG Flexpen] 5 units SQ AC-TID 03/19/19 04/27/19 History Polyethylene Glycol 3350 [Miralax] 17 gm PO DAILY PRN 03/19/19 04/27/19 History Sennosides [Senna] 17.2 mg PO HS PRN 03/19/19 04/27/19 History Cyanocobalamin (Vitamin B-12) 1,000 mcg PO DAILY 04/03/19 04/27/19 History [Vitamin B-12] Acetaminophen [Tylenol] 650 mg PO Q6H PRN 04/27/19 04/27/19 History Sulfamethoxazole/Trimethoprim 1 tab PO BID 04/27/19 04/27/19 History [Bactrim DS 800-160 mg] Allergies Allergy/AdvReac Type Severity Reaction Status Date / Time lithium Allergy Unknown Verified 04/27/19 15:55 Physical Exam Vitals: Vital Signs Temp Pulse Pulse Resp BP BP Pulse Ox 04/28/19 03:50 98.9 F 79 18 129/61 94 L 04/28/19 03:02 16 04/28/19 00:00 78 16 04/27/19 23:13 95.3 F L 78 16 115/52 94 L 04/27/19 22:14 93.5 F L 52 L 18 124/49 95 04/27/19 17:33 61 18 109/37 97 04/27/19 14:13 58 L 16 116/62 94 L 04/27/19 12:01 62 8 L 143/63 98 Intake and Output 04/27/19 04/28/19 04/28/19 22:59 06:59 14:59 Output Total 2150 1050 Balance -2150 -1050 Output: Urine 2150 1050 Other: # Bowel Movements 1 1 Weight 63 kg PHYSICAL EXAMINATION: GENERAL: 79-year-old gentleman in no acute distress at the time of my examination HEENT: Head is atraumatic, normocephalic. Pupils equal, round. Sclera anicteric. Conjunctiva are clear. Mucous membranes of the mouth are moist. Neck is supple. There is no elevated jugular venous pressure. No carotid bruit is heard. HEART EXAMINATION: S1 and S2 1 systolic murmur is heard CHEST EXAMINATION: Lungs reveal scattered coarse rhonchi that clear with cough, mild diminished air entry at the bases ABDOMEN: Soft, nontender. Bowel sounds are heard. No organomegaly noted. EXTREMITIES: 2+ peripheral pulses with trace evidence of peripheral edema , erythema noted to bilateral lower extremities . NEUROLOGIC patient is awake, alert and oriented 2. . Results 04/28/19 05:40 04/28/19 05:40 Cardiac Enzymes 04/27/19 04/27/19 Range/Units 12:30 12:31 AST 31 (17-59) U/L Troponin I <0.012 (0.000-0.034) ng/mL CBC 04/27/19 04/28/19 Range/Units 12:31 05:40 WBC 3.1 L 2.4 L (3.8-10.6) k/uL RBC 2.38 L 2.10 L (4.30-5.90) m/uL Hgb 8.5 L 7.3 L (13.0-17.5) gm/dL Hct 27.1 L 23.7 L (39.0-53.0) % Plt Count 105 L 95 L (150-450) k/uL Comprehensive Metabolic Panel 04/27/19 04/28/19 Range/Units 12:31 05:40 Sodium 143 142 (137-145) mmol/L Potassium 5.6 H 5.3 H (3.5-5.1) mmol/L Chloride 115 H 114 H (98-107) mmol/L Carbon Dioxide 21 L 23 (22-30) mmol/L BUN 34 H 32 H (9-20) mg/dL Creatinine 1.72 H 1.80 H (0.66-1.25) mg/dL Glucose 26 L* 95 (74-99) mg/dL Calcium 8.4 8.4 (8.4-10.2) mg/dL AST 31 (17-59) U/L ALT 28 (21-72) U/L Alkaline Phosphatase 291 H (38-126) U/L Total Protein 5.7 L (6.3-8.2) g/dL Albumin 2.9 L (3.5-5.0) g/dL Current Medications Generic Name Dose Route Start Last Admin Trade Name Freq PRN Reason Stop Dose Admin Acetaminophen 650 mg 04/27/19 21:34 Tylenol Tab PO Q6H PRN Pain Calcitriol 0.25 mcg 04/27/19 22:00 04/27/19 22:56 Rocaltrol PO 0.25 mcg Q48H [facility] Administration Cholecalciferol 2,000 unit 04/28/19 09:00 Vitamin D3 (25 Mcg = 1000 Iu) PO DAILY [facility] Cyanocobalamin 1,000 mcg 04/28/19 09:00 Vitamin B-12 PO DAILY [facility] Divalproex Sodium 1,000 mg 04/28/19 09:00 Depakote Er PO DAILY [facility] Ferrous Sulfate 325 mg 04/28/19 09:00 Feosol PO BID [facility] Sodium Chloride 1,000 mls @ 25 mls/hr 04/27/19 15:15 04/27/19 15:51 Saline 0.9% IV 25 mls/hr .Q24H [facility] Administration Ceftriaxone Sodium 1 gm/ 50 mls @ 100 mls/hr 04/28/19 09:00 Sodium Chloride IVPB Q24HR [facility] Insulin Aspart 0 unit 04/28/19 07:30 04/28/19 06:38 Novolog SQ Not Given ACHS [facility] Protocol Naloxone HCl 0.2 mg 04/27/19 15:14 Narcan IV Q2M PRN Opioid Reversal Polyethylene Glycol 17 gm 04/27/19 21:34 Miralax PO DAILY PRN Constipation Senna 17.2 mg 04/27/19 21:34 Senokot PO HS PRN Constipation Tamsulosin HCl 0.4 mg 04/28/19 09:00 Flomax PO DAILY [facility] Intake and Output 04/27/19 04/28/19 04/28/19 22:59 06:59 14:59 Output Total 2150 1050 Balance -2150 -1050 Output: Urine 2150 1050 Other: # Bowel Movements 1 1 Weight 63 kg 04/28/19 05:40 04/28/19 05:40 EKG Interpretations (text) EKG shows a normal sinus rhythm with occasional PVCs, nonspecific ST-T wave changes. Assessment and Plan Plan: Assessment and plan #1 bilateral lower extremity swelling with associated cellulitis, was on Bactrim as an outpatient #2 diabetes #3 acute on chronic kidney disease #4 hyperkalemia #5 pancytopenia, chronic #6 hypertension #7 hyperlipidemia #8 developmentally delayed #9 known history of coronary artery disease with prior stent placement #10 history of bladder cancer #11 elevated BNP level with evidence of mild congestive cardiac failure. LV function unknown. Plan We will obtain an echocardiogram with Doppler study. We will put the patient on a small dose of statin along with NIYA inhibitor. Initiate a small dose of Lasix. Further recommendations to follow. DNP note has been reviewed, I agree with a documented findings and plan of care. Patient was seen and examined.
[2019-04-28 08:40] LABS: T4, Free (Free Thyroxine) 1.31 ng/dL (0.78-2.19)
--- NOTE | 2019-04-28 09:46 | P.CONS ---
History of Present Illness - Reason for Consult Consult date: 04/28/19 Cellulitis - History of Present Illness This is a 79-year-old male who resides at [facility] with the legal guardian which is his brother. 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 Patient had a recent ERCP and stenting at [facility] with findings of chronic pancreatitis and pseudocyst biliary stricture. 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 There is very minimal portal inflammation with mild periportal fibrosis. It was thought that the alkaline phosphatase most likely secondary to vascular or cardiac compromise rather than biliary cause. Patient also has underlying history of bladder cancer with chronic Romero catheter, diabetes mellitus type 2, intellectual delay. On previous admission to this, patient was found to have Klebsiella oxytoca bacteremia and positive urinary tract infection. He was transferred to [facility] and most likely completed course of antibiotics for this. Klebsiella oxytoca sepsis susceptible to ceftriaxone. Most recently, patient has been treated at the [facility] for cellulitis of the left lower extremity with Bactrim and the caregivers noted yesterday that he was not eating which was unlike him. Patient had increasing weakness and lethargy. Patient presented with a temperature of 93.5, WBC 3.1, hemoglobin 8.5, platelet count 105, BUN 34 and creatinine 1.72 and potassium is 5.6. Blood sugar was 26. Patient was given an amp of D50 and he was more alert following this. There was no noted focal neurological deficits. Patient was given calcium gluconate and IV Lasix. Chest x-ray was concerning for possible pneumonia. Lactic acid was normal. Patient was admitted to the cardiac stepdown unit and seen in consultation by cardiology. At the time of this evaluation, patient is sitting up, he is complaining of feeling sleepy and states he did not sleep well last night. He can answer most questions appropriately. He did eat 100% of his breakfast this morning. He has had 2 soft brown stools. Patient has a chronic Romero catheter in place. No decubitus ulcers. Review of Systems Constitutional: Reports daytime sleepiness, Reports fatigue, Reports lethargy, Reports malaise, Reports poor appetite, Reports weakness Ears, nose, mouth and throat: Denies dysphagia, Denies mouth pain, Denies vertigo Cardiovascular: Reports leg edema, Denies decreased exercise tolerance, Denies dyspnea on exertion, Denies lightheadedness, Denies shortness of breath, Denies syncope Respiratory: Denies cough, Denies cough with sputum, Denies dyspnea, Denies excessive sputum, Denies hemoptysis, Denies home oxygen, Denies wheezing Gastrointestinal: Denies abdominal pain, Denies constipation, Denies diarrhea, Denies loss of appetite, Denies nausea, Denies vomiting Genitourinary: Reports urinary retention, Denies dysuria Musculoskeletal: Denies frequent falls, Denies gait dysfunction, Denies myalgias Integumentary: Reports color changes, Reports darkening of skin, Reports wounds, Denies pruritus, Denies rash Neurological: Reports change in mentation, Denies numbness, Denies weakness Psychiatric: Denies anxiety, Denies depression Endocrine: Reports fatigue, Reports low blood sugars, Denies weight change Past Medical History Past Medical History: Cancer, Diabetes Mellitus, Hyperlipidemia, Hypertension, Myocardial Infarction ([place]) Additional Past Medical History / Comment(s): Mental handicap-approx capacity at age 9.,bladder Ca approx 2013,elevated potassium Last Myocardial Infarction Date:: 2009 History of Any Multi-Drug Resistant Organisms: None Reported Past Surgical History: Heart Catheterization With Stent Additional Past Surgical History / Comment(s): bladder tumors removed; Cataract R eye, stent place in pancreatic duct Past Anesthesia/Blood Transfusion Reactions: No Reported Reaction Date of Last Stent Placement:: 2009 Past Psychological History: No Psychological Hx Reported Additional Psychological History / Comment(s): mentally handicapped Smoking Status: Never smoker Past Alcohol Use History: None Reported Additional Past Alcohol Use History / Comment(s): quit smoking 2009,1ppd Past Drug Use History: None Reported - Past Family History Father Family Medical History: Cancer Additional Family Medical History / Comment(s): lung Mother Family Medical History: COPD Additional Family Medical History / Comment(s): bowel surgeries Medications and Allergies Home Medications Medication Instructions Recorded Confirmed Type Calcitriol [Rocaltrol] 0.25 mcg PO Q48H 12/29/16 04/27/19 History Cholecalciferol [Vitamin D3 (25 2,000 unit PO DAILY 12/29/16 04/27/19 History Mcg = 1000 Iu)] Ferrous Sulfate [Iron (65 MG 325 mg PO BID 12/29/16 04/27/19 History Elemental)] Tamsulosin [Flomax] 0.4 mg PO DAILY 12/29/16 04/27/19 History Divalproex Sodium [Divalproex 1,000 mg PO DAILY 03/19/19 04/27/19 History Sodium ER] Insulin Aspart [NovoLOG Flexpen] 5 units SQ AC-TID 03/19/19 04/27/19 History Polyethylene Glycol 3350 [Miralax] 17 gm PO DAILY PRN 03/19/19 04/27/19 History Sennosides [Senna] 17.2 mg PO HS PRN 03/19/19 04/27/19 History Cyanocobalamin (Vitamin B-12) 1,000 mcg PO DAILY 04/03/19 04/27/19 History [Vitamin B-12] Acetaminophen [Tylenol] 650 mg PO Q6H PRN 04/27/19 04/27/19 History Sulfamethoxazole/Trimethoprim 1 tab PO BID 04/27/19 04/27/19 History [Bactrim DS 800-160 mg] Allergies Allergy/AdvReac Type Severity Reaction Status Date / Time lithium Allergy Unknown Verified 04/27/19 15:55 Physical Exam Vitals: Vital Signs Temp Pulse Pulse Resp BP BP BP 04/28/19 07:50 98.3 F 73 15 132/70 04/28/19 03:50 98.9 F 79 18 129/61 04/28/19 03:02 16 04/28/19 00:00 78 16 04/27/19 23:13 95.3 F L 78 16 115/52 04/27/19 22:14 93.5 F L 52 L 18 124/49 04/27/19 17:33 61 18 109/37 04/27/19 14:13 58 L 16 116/62 04/27/19 12:01 62 8 L 143/63 Pulse Ox 04/28/19 07:50 04/28/19 03:50 94 L 04/28/19 03:02 04/28/19 00:00 04/27/19 23:13 94 L 04/27/19 22:14 95 04/27/19 17:33 97 04/27/19 14:13 94 L 04/27/19 12:01 98 Intake and Output 04/27/19 04/28/19 04/28/19 22:59 06:59 14:59 Intake Total 240 Output Total 2150 1050 Balance -2150 -1050 240 Intake: Oral 240 Output: Urine 2149 1050 Other: # Bowel Movements 1 1 1 Weight 63 kg Gen: This is a 79-year-old male. Patient appears thin with muscle wasting to the extremities. He appears to be in no acute distress. HEENT: Head is atraumatic, normocephalic. Pupils equal, round. Sclerae is anicteric. NECK: Supple. No JVD. No lymphadenopathy. No thyromegaly. LUNGS: Diminished in the bases. No wheezes or rhonchi. No intercostal retractions. HEART: Regular rate and rhythm. Systolic murmur. ABDOMEN: Soft. Bowel sounds are present. No masses. No tenderness. Romero catheter draining akila urine. EXTREMITIES: No pedal edema. Dorsalis pedis +1 bilateral. Mild pretibial edema and erythema slightly worse to the left. No drainage noted. NEUROLOGICAL: Patient is awake, alert and oriented x2. No focal neural deficits. Results Results: Laboratory Results WBC 2.4 k/uL (3.8-10.6) L 04/28/19 05:40 RBC 2.10 m/uL (4.30-5.90) L 04/28/19 05:40 Hgb 7.3 gm/dL (13.0-17.5) L 04/28/19 05:40 Hct 23.7 % (39.0-53.0) L 04/28/19 05:40 MCV 113.0 fL (80.0-100.0) H 04/28/19 05:40 MCH 34.9 pg (25.0-35.0) 04/28/19 05:40 MCHC 30.9 g/dL (31.0-37.0) L 04/28/19 05:40 RDW 18.7 % (11.5-15.5) H 04/28/19 05:40 Plt Count 95 k/uL (150-450) L 04/28/19 05:40 Neutrophils % 71 % 04/28/19 05:40 Lymphocytes % 18 % 04/28/19 05:40 Monocytes % 6 % 04/28/19 05:40 Eosinophils % 2 % 04/28/19 05:40 Basophils % 0 % 04/28/19 05:40 Neutrophils # 1.7 k/uL (1.3-7.7) 04/28/19 05:40 Lymphocytes # 0.4 k/uL (1.0-4.8) L 04/28/19 05:40 Monocytes # 0.2 k/uL (0-1.0) 04/28/19 05:40 Eosinophils # 0.0 k/uL (0-0.7) 04/28/19 05:40 Basophils # 0.0 k/uL (0-0.2) 04/28/19 05:40 Manual Slide Review Performed 04/28/19 05:40 Hypochromasia Moderate 04/28/19 05:40 Poikilocytosis Slight 04/28/19 05:40 Anisocytosis Slight 04/28/19 05:40 Macrocytosis Marked A 04/28/19 05:40 Sodium 142 mmol/L (137-145) 04/28/19 05:40 Potassium 5.3 mmol/L (3.5-5.1) H 04/28/19 05:40 Chloride 114 mmol/L (98-107) H 04/28/19 05:40 Carbon Dioxide 23 mmol/L (22-30) 04/28/19 05:40 Anion Gap 5 mmol/L 04/28/19 05:40 BUN 32 mg/dL (9-20) H 04/28/19 05:40 Creatinine 1.80 mg/dL (0.66-1.25) H 04/28/19 05:40 Est GFR (CKD-EPI)AfAm 41 (>60 ml/min/1.73 sqM) 04/28/19 05:40 Est GFR (CKD-EPI)NonAf 36 (>60 ml/min/1.73 sqM) 04/28/19 05:40 Glucose 95 mg/dL (74-99) 04/28/19 05:40 POC Glucose (mg/dL) 105 mg/dL (75-99) H 04/28/19 06:28 POC Glu Operations Representative ID Haley Muniz 04/28/19 06:28 Plasma Lactic Acid Alejandro 1.4 mmol/L (0.7-2.0) 04/27/19 12:31 Calcium 8.4 mg/dL (8.4-10.2) 04/28/19 05:40 Total Bilirubin 0.7 mg/dL (0.2-1.3) 04/27/19 12:31 AST 31 U/L (17-59) 04/27/19 12:31 ALT 28 U/L (21-72) 04/27/19 12:31 Alkaline Phosphatase 291 U/L (38-126) H 04/27/19 12:31 Troponin I <0.012 ng/mL (0.000-0.034) 04/27/19 12:30 NT-Pro-B Natriuret Pep 7120 pg/mL 04/27/19 12:31 Total Protein 5.7 g/dL (6.3-8.2) L 04/27/19 12:31 Albumin 2.9 g/dL (3.5-5.0) L 04/27/19 12:31 TSH 8.210 mIU/L (0.465-4.680) H 04/28/19 05:40 Free T4 1.31 ng/dL (0.78-2.19) 04/28/19 05:40 CBC & Chem 7: 04/28/19 05:40 04/28/19 05:40 Labs: Abnormal Lab Results - Last 24 Hours (Table) 04/27/19 04/27/19 04/27/19 Range/Units 12:31 12:31 13:18 WBC 3.1 L (3.8-10.6) k/uL RBC 2.38 L (4.30-5.90) m/uL Hgb 8.5 L (13.0-17.5) gm/dL Hct 27.1 L (39.0-53.0) % MCV 113.4 H (80.0-100.0) fL MCH 35.6 H (25.0-35.0) pg MCHC (31.0-37.0) g/dL RDW 18.8 H (11.5-15.5) % Plt Count 105 L (150-450) k/uL Lymphocytes # 0.8 L (1.0-4.8) k/uL Macrocytosis Marked A Potassium 5.6 H (3.5-5.1) mmol/L Chloride 115 H (98-107) mmol/L Carbon Dioxide 21 L (22-30) mmol/L BUN 34 H (9-20) mg/dL Creatinine 1.72 H (0.66-1.25) mg/dL Glucose 26 L* (74-99) mg/dL POC Glucose (mg/dL) 244 H (75-99) mg/dL Alkaline Phosphatase 291 H (38-126) U/L Total Protein 5.7 L (6.3-8.2) g/dL Albumin 2.9 L (3.5-5.0) g/dL TSH (0.465-4.680) mIU/L 04/27/19 04/27/19 04/28/19 Range/Units 17:42 22:26 05:40 WBC (3.8-10.6) k/uL RBC (4.30-5.90) m/uL Hgb (13.0-17.5) gm/dL Hct (39.0-53.0) % MCV (80.0-100.0) fL MCH (25.0-35.0) pg MCHC (31.0-37.0) g/dL RDW (11.5-15.5) % Plt Count (150-450) k/uL Lymphocytes # (1.0-4.8) k/uL Macrocytosis Potassium (3.5-5.1) mmol/L Chloride (98-107) mmol/L Carbon Dioxide (22-30) mmol/L BUN (9-20) mg/dL Creatinine (0.66-1.25) mg/dL Glucose (74-99) mg/dL POC Glucose (mg/dL) 70 L 180 H (75-99) mg/dL Alkaline Phosphatase (38-126) U/L Total Protein (6.3-8.2) g/dL Albumin (3.5-5.0) g/dL TSH 8.210 H (0.465-4.680) mIU/L 04/28/19 04/28/19 04/28/19 Range/Units 05:40 05:40 06:28 WBC 2.4 L (3.8-10.6) k/uL RBC 2.10 L (4.30-5.90) m/uL Hgb 7.3 L (13.0-17.5) gm/dL Hct 23.7 L (39.0-53.0) % MCV 113.0 H (80.0-100.0) fL MCH (25.0-35.0) pg MCHC 30.9 L (31.0-37.0) g/dL RDW 18.7 H (11.5-15.5) % Plt Count 95 L (150-450) k/uL Lymphocytes # 0.4 L (1.0-4.8) k/uL Macrocytosis Marked A Potassium 5.3 H (3.5-5.1) mmol/L Chloride 114 H (98-107) mmol/L Carbon Dioxide (22-30) mmol/L BUN 32 H (9-20) mg/dL Creatinine 1.80 H (0.66-1.25) mg/dL Glucose (74-99) mg/dL POC Glucose (mg/dL) 105 H (75-99) mg/dL Alkaline Phosphatase (38-126) U/L Total Protein (6.3-8.2) g/dL Albumin (3.5-5.0) g/dL TSH (0.465-4.680) mIU/L Assessment and Plan Plan: This is a 79-year-old male who presented to the hospital with metabolic encephalopathy appears to be related to low blood sugar of 26 and also found to have worsening of his renal function and hyperkalemia. Patient presented with subtherapeutic temperature and required Katty hugger. Chest x-ray concerning for pneumonia. Patient has received outpatient treatment for cellulitis of the lower extremities with Bactrim most likely the culprit for the hypoglycemia and worsening renal function. This has been discontinued and patient started on Rocephin. A urinalysis and reflex culture will be checked. Note the patient had a recent hospitalization and found to have Klebsiella oxytoca bacteremia and Romero catheter associated urinary tract infection at which time he was transferred [facility] most likely completed a course of antibiotics. Continue supportive care. Further recommendations as patient progresses. The above dictated assessment and findings were discussed with Dr. Lott. The impression and plan of care have been directed as dictated. Yady López nurse practitioner acting as scribe for Dr. Lott.
[2019-04-28] MEDS: CYANOCOBALAMIN 500 MCG TAB PO SCH (10:36)
[2019-04-28] MEDS: CHOLECALCIFEROL 1,000 UNIT TAB PO SCH (10:36)
--- NOTE | 2019-04-28 10:36 | ECHOF ---
Referral Reason:chf MEASUREMENTS -------- HEIGHT: 165.1 cm WEIGHT: 62.6 kg BP: 129/61 RVIDd: 3.5 cm (< 3.3) IVSd: 1.3 cm (0.6 - 1.1) LVIDd: 4.4 cm (3.9 - 5.3) LVPWd: 1.2 cm (0.6 - 1.1) IVSs: 1.4 cm LVIDs: 3.4 cm LVPWs: 1.7 cm LA Diam: 4.0 cm (2.7 - 3.8) LAESV Index (A-L): 38.29 ml/m Ao Diam: 3.6 cm (2.0 - 3.7) AV Cusp: 1.9 cm (1.5 - 2.6) MV EXCURSION: 22.451 mm (> 18.000) MV EF SLOPE: 99 mm/s (70 - 150) EPSS: 0.7 cm MV E Talib: 0.94 m/s MV DecT: 208 ms MV A Talib: 0.59 m/s MV E/A Ratio: 1.58 RAP: 5.00 mmHg RVSP: 36.85 mmHg FINDINGS -------- Sinus rhythm. This was a technically good study. The left ventricular size is normal. There is mild concentric left ventricular hypertrophy. Overa ll left ventricular systolic function is mildly impaired with, an EF between 45 - 50 %. Basal infer ior LV wall motion is hypokinetic. Basal inferoseptal LV wall motion is hypokinetic. The right ventricle is mildly enlarged. LA is moderately dilated 34-39 ml/m2 The right atrium is normal in size. Interatrial and interventricular septum intact. There is mild aortic valve sclerosis. The mitral valve leaflets are mildly thickened. Mild mitral annular calcification present. Mild m itral regurgitation is present. Mild tricuspid regurgitation present. There is mild pulmonary hypertension. The right ventricular systolic pressure, as measured by Doppler, is 36.85mmHg. Trace/mild (physiologic) pulmonic regurgitation. The aortic root size is normal. Normal inferior vena cava with normal inspiratory collapse consistent with estimated right atrial pre ssure of 5 mmHg. There is no pericardial effusion. CONCLUSIONS -------- 1. Sinus rhythm. 2. This was a technically good study. 3. The left ventricular size is normal. 4. There is mild concentric left ventricular hypertrophy. 5. Overall left ventricular systolic function is mildly impaired with, an EF between 45 - 50 %. 6. Basal inferior LV wall motion is hypokinetic. 7. Basal inferoseptal LV wall motion is hypokinetic. 8. The right ventricle is mildly enlarged. 9. LA is moderately dilated 34-39 ml/m2 10. The right atrium is normal in size. 11. Interatrial and interventricular septum intact. 12. There is mild aortic valve sclerosis. 13. The mitral valve leaflets are mildly thickened. 14. Mild mitral annular calcification present. 15. Mild mitral regurgitation is present. 16. Mild tricuspid regurgitation present. 17. There is mild pulmonary hypertension. 18. The right ventricular systolic pressure, as measured by Doppler, is 36.85mmHg. 19. Trace/mild (physiologic) pulmonic regurgitation. 20. The aortic root size is normal. 21. Normal inferior vena cava with normal inspiratory collapse consistent with estimated right atrial pressure of 5 mmHg. 22. There is no pericardial effusion. COMBATANT SWIMMER: Felicitas Bowser RDCS
[2019-04-28] MEDS: DIVALPROEX ER 500 MG TAB.ER.24H PO SCH (10:37)
[2019-04-28] MEDS: FERROUS SULFATE 325 MG TAB PO SCH ×2 (10:38→21:20)
[2019-04-28] MEDS: LISINOPRIL 5 MG TAB PO SCH (10:38)
[2019-04-28] MEDS: TAMSULOSIN 0.4 MG CAP.ER.24H PO SCH (10:38)
[2019-04-28 11:38] LABS: Glucose,Whole Blood 209 mg/dL (75-99)
[2019-04-28 14:26] VITALS: BMI 23.1
--- NOTE | 2019-04-28 16:07 | P.PN ---
Subjective Progress Note Date: 04/28/19 Principal diagnosis: This is a 79-year-old male who was recently admitted for pain and swelling of the lower extremities, and pneumonia and is being closely monitored. Patient is currently on IV antibiotics in the form of Rocephin. Infectious disease and cardiology have been consulted. Today patient is sitting up in the bed in no acute distress. Brother and legal guardian are at the bedside. Lower extremities have improved with a decrease in the swelling and redness. Patient denies any chest pain, shortness of breath, or palpitations at this time. Patient denies any nausea or vomiting and has been tolerating diet. Patient has been afebrile. Guarded prognosis. Objective - Vital Signs Vital signs: Vital Signs Temp 98.3 F 04/28/19 07:50 Pulse 79 04/28/19 12:34 Resp 15 04/28/19 12:34 BP 157/71 04/28/19 12:34 Pulse Ox 96 04/28/19 12:34 Intake & Output 04/27/19 04/28/19 04/28/19 18:59 06:59 18:59 Intake Total 683 Output Total 2150 1050 450 Balance -2150 -1050 233 Weight 62.142 kg 63 kg 63 kg Intake: Oral 683 Output: Urine 2150 1050 450 Other: Voiding Method Indwelling Catheter # Bowel Movements 1 1 2 - Exam Gen: This is a 79-year-old male sitting up in bed in no acute distress. Vital signs are stable. Blood pressure is 132/70, pulse is 73, respirations are 15, temp is 98.3 oral, oxygen saturation is 96% on room air. HEENT: Head is atraumatic, normocephalic. Pupils equal, round. Sclerae is anicteric. NECK: Supple. Mild JVD noted. No lymphadenopathy. No thyromegaly. LUNGS: Diminished breath sounds at the bases with a few scattered rhonchi. No intercostal retractions. HEART: Regular rate and rhythm. Systolic murmur. ABDOMEN: Soft. Bowel sounds are present. No masses. No tenderness. EXTREMITIES: Mild erythema and swelling noted to bilateral lower extremities. No calf tenderness. NEUROLOGICAL: Patient is awake, alert and oriented x2. Cranial nerves 2 through 12 are grossly intact. - Labs CBC & Chem 7: 04/28/19 05:40 04/28/19 05:40 Labs: Abnormal Lab Results - Last 24 Hours (Table) 04/27/19 04/27/19 04/28/19 Range/Units 17:42 22:26 05:40 WBC (3.8-10.6) k/uL RBC (4.30-5.90) m/uL Hgb (13.0-17.5) gm/dL Hct (39.0-53.0) % MCV (80.0-100.0) fL MCHC (31.0-37.0) g/dL RDW (11.5-15.5) % Plt Count (150-450) k/uL Lymphocytes # (1.0-4.8) k/uL Macrocytosis Potassium (3.5-5.1) mmol/L Chloride (98-107) mmol/L BUN (9-20) mg/dL Creatinine (0.66-1.25) mg/dL POC Glucose (mg/dL) 70 L 180 H (75-99) mg/dL TSH 8.210 H (0.465-4.680) mIU/L 04/28/19 04/28/19 04/28/19 Range/Units 05:40 05:40 06:28 WBC 2.4 L (3.8-10.6) k/uL RBC 2.10 L (4.30-5.90) m/uL Hgb 7.3 L (13.0-17.5) gm/dL Hct 23.7 L (39.0-53.0) % MCV 113.0 H (80.0-100.0) fL MCHC 30.9 L (31.0-37.0) g/dL RDW 18.7 H (11.5-15.5) % Plt Count 95 L (150-450) k/uL Lymphocytes # 0.4 L (1.0-4.8) k/uL Macrocytosis Marked A Potassium 5.3 H (3.5-5.1) mmol/L Chloride 114 H (98-107) mmol/L BUN 32 H (9-20) mg/dL Creatinine 1.80 H (0.66-1.25) mg/dL POC Glucose (mg/dL) 105 H (75-99) mg/dL TSH (0.465-4.680) mIU/L 04/28/19 Range/Units 11:36 WBC (3.8-10.6) k/uL RBC (4.30-5.90) m/uL Hgb (13.0-17.5) gm/dL Hct (39.0-53.0) % MCV (80.0-100.0) fL MCHC (31.0-37.0) g/dL RDW (11.5-15.5) % Plt Count (150-450) k/uL Lymphocytes # (1.0-4.8) k/uL Macrocytosis Potassium (3.5-5.1) mmol/L Chloride (98-107) mmol/L BUN (9-20) mg/dL Creatinine (0.66-1.25) mg/dL POC Glucose (mg/dL) 209 H (75-99) mg/dL TSH (0.465-4.680) mIU/L Microbiology - Last 24 Hours (Table) 04/27/19 12:31 Blood Culture - Preliminary Blood No Growth after 24 hours Assessment and Plan Assessment: Bilateral leg swelling and cellulitis with failure of outpatient treatment Diabetes mellitus type 2 with hypoglycemia, uncontrolled Increased creatinine with chronic kidney disease stage III Hyperkalemia, mild Mild pancytopenia of undetermined etiology Elevated alkaline phosphatase Recent liver biopsy inconclusive pending secondary consultation for rule out primary biliary cirrhosis, chronic cholestatic findings Hypertension Hyperlipidemia next line history of myocardial infarction History of mentally handicapped History of coronary artery disease/stent History of bladder tumor History of cataracts Remote history of nicotine dependence Full code Recommendations and discussion: Recommend to continue current medications, management, and symptomatic tr eatment. Cardiology and infectious disease are following. Recent 2-D echo done showing an ejection fraction of 45-50%. Patient will continue with IV antibiotics in the form of Rocephin at this time. Guarded prognosis. Further recommendations to follow.
[2019-04-28 16:38] LABS: Glucose,Whole Blood 239 mg/dL (75-99)
[2019-04-28] MEDS: SODIUM CHLORIDE 0.9% 1,000 ML IV SCH (17:31)
[2019-04-28 17:40] LABS: Appearance,Urine Clear (Clear); Bilirubin,Urine Negative (Negative); Blood,Urine Negative (Negative); Color,Urine Light Yellow; Glucose,Urine (UA) 4+ (Negative); Ketones,Urine Negative (Negative); Leukocyte Esterase,Urine Negative (Negative); Nitrite,Urine Negative (Negative); PH, Urine 5.5 (5.0-8.0); Protein,Urine Negative (Negative); Specific Gravity,Urine 1.012 (1.001-1.035); Urobilinogen,Urine <2.0 mg/dL (<2.0)
[2019-04-28 20:39] LABS: Glucose,Whole Blood 116 mg/dL (75-99)
[2019-04-28] MEDS: ATORVASTATIN 40 MG TAB PO SCH (21:20)
[2019-04-28] MEDS ORDERED: FUROSEMIDE 10 MG/ML 4 ML VIAL ONE (21:36)
[2019-04-28] MEDS ORDERED: FUROSEMIDE 10 MG/ML 4 ML VIAL IV STA (21:37)
[2019-04-28] MEDS ORDERED: IPRATROPIUM-ALBUTEROL 3 ML NEB INHALATION PRN (21:53)
--- NOTE | 2019-04-28 21:57 | XR ---
EXAMINATION TYPE: XR chest 1V portable DATE OF EXAM: 04/28/2019 COMPARISON: 04/27/2019 HISTORY: Chest pain TECHNIQUE: Single frontal view of the chest is obtained. FINDINGS: There is pulmonary vascular congestion. There are chest leads. There is slight blunting of costophrenic angles. There is some pulmonary mild edema. IMPRESSION: Congestive heart failure with pleural effusions. Pulmonary congestion increased compared to yesterday. Bilateral lower lobe pulmonary infiltrates consistent with heart failure. Aspiration p neumonia I think is less likely in view of the symmetric pattern.
[2019-04-28] MEDS ORDERED: FUROSEMIDE 10 MG/ML 2 ML VIAL IV ONE ×2 (22:00→23:19)
[2019-04-28 22:02] LABS: Glucose,Whole Blood 130 mg/dL (75-99)
[2019-04-28 22:23] LABS: Anisocytosis Slight; Basophils % (A) 1 %; Eosinophils # (A) 0.1 k/uL (0-0.7); Eosinophils % (A) 1 %; HCT 29.4 % (39.0-53.0); Hypochromasia Marked; Lymphocytes # (A) 0.8 k/uL (1.0-4.8); Lymphocytes % (A) 14 %; MCH 35.8 pg (25.0-35.0); MCHC 30.7 g/dL (31.0-37.0); MCV 116.7 fL (80.0-100.0); Macrocytosis Marked; Mean Platelet Volume 8.8; Monocytes # (A) 0.3 k/uL (0-1.0); Monocytes % (A) 4 %; Neutrophils # (A) 4.8 k/uL (1.3-7.7); Neutrophils % (A) 79 %; Platelet Count 138 k/uL (150-450); Poikilocytosis Slight; RBC 2.52 m/uL (4.30-5.90); RDW 18.1 % (11.5-15.5); WBC 6.1 k/uL (3.8-10.6)
[2019-04-28 22:27] LABS: Calcium 8.5 mg/dL (8.4-10.2); Potassium 5.3 mmol/L (3.5-5.1)
[2019-04-28 22:46] LABS: Poikilocytosis (M) Present; Polychromasia Present
--- NOTE | 2019-04-28 23:03 | P.CON ---
Consult Note - . Consult date: 04/28/19 Assessment/Plan:: This is a 79-year-old male who resides at [facility] with the legal guardian which is his brother. 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 Patient had a recent ERCP and stenting at [facility] with findings of chronic pancreatitis and pseudocyst biliary stricture. 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 There is very minimal portal inflammation with mild periportal fibrosis. It was thought that the alkaline phosphatase most likely secondary to vascular or cardiac compromise rather than biliary cause. Patient also has underlying history of bladder cancer with chronic Romero catheter, diabetes mellitus type 2, intellectual delay. On previous admission to this, patient was found to have Klebsiella oxytoca bacteremia and positive urinary tract infection. He was transferred to [facility] and most likely completed course of antibiotics for this. Klebsiella oxytoca sepsis lopes sceptible to ceftriaxone. Most recently, patient has been treated at the halfway for cellulitis of the left lower extremity with Bactrim and the caregivers noted yesterday that he was not eating which was unlike him. Patient had increasing weakness and lethargy. Patient presented with a temperature of 93.5, WBC 3.1, hemoglobin 8.5, platelet count 105, BUN 34 and creatinine 1.72 and potassium is 5.6. Blood sugar was 26. Patient was given an amp of D50 and he was more alert following this. There was no noted focal neurological deficits. Patient was given calcium gluconate and IV Lasix. Chest x-ray was concerning for possible pneumonia. Lactic acid was normal. Patient was admitted to the cardiac stepdown unit and seen in consultation by cardiology. At the time of this evaluation, patient is sitting up, he is complaining of feeling sleepy and states he did not sleep well last night. He can answer most questions appropriately. He did eat 100% of his breakfast this morning. He has had 2 soft brown stools. Patient has a chronic Romero catheter in place. No decubitus ulcers.Please see the consult is dictated by nurse practitioner Mrs. Yady López. 79-year-old male resides in a halfway presents to Hospital with increasing weakness and lethargy. He had relative hypothermia and some ongoing pancytopenia. He was recently hospitalized which point in time he did have d ifficulties with Klebsiella oxytoca urinary tract infection and bacteremia. He also is having difficulties and underwent liver biopsy. No evidence of primary biliary cholangitis was found the patient continues with ongoing decline of his status. He has now admitted with evidence of infection from urinary tract antibiotic therapy with Rocephin has been initiated. Urinary catheter change has been requested. Patient has evidence of a fall and has some bruising to the bilateral pretibial areas but they are not open weeping or draining. Cultures will help guide the course of therapy especially for the time of discharge. It is possible the patient's trimethoprim sulfamethoxazole his worsened his pancytopenia and is now discontinued. Nutritional supplementation in monitoring for recovery of his bone marrow is in process. I agree with evaluation, assessment and plan as dictated by nurse practitioner Mrs. Yady López.
[2019-04-28 23:57] LABS: ABG Base Excess -1.7 mmol/L; ABG HCO3 23 mmol/L (21-25); ABG Oxygen Saturation 96.6 % (94-97); ABG PCO2 37 mmHg (35-45); ABG PO2 91 mmHg (83-108); ABG TCO2 24 mmol/L (19-24); Allen Test Performed? Yes
[2019-04-29 00:19] LABS: Glucose,Whole Blood 171 mg/dL (75-99)
[2019-04-29] MEDS: PIPERACILLIN-TAZOBACTAM 3.375 GM in SODIUM CHLORIDE 0.9% 100 ML IVPB SCH ×4 (00:22→23:06)
[2019-04-29 03:07] LABS: Anisocytosis Slight; Basophils % (A) 1 %; Eosinophils # (A) 0.1 k/uL (0-0.7); Eosinophils % (A) 1 %; HCT 25.7 % (39.0-53.0); Hypochromasia Marked; Lymphocytes # (A) 0.4 k/uL (1.0-4.8); Lymphocytes % (A) 9 %; MCH 36.2 pg (25.0-35.0); MCHC 31.2 g/dL (31.0-37.0); Macrocytosis Marked; Mean Platelet Volume 8.8; Monocytes # (A) 0.2 k/uL (0-1.0); Monocytes % (A) 4 %; Neutrophils # (A) 3.8 k/uL (1.3-7.7); Neutrophils % (A) 84 %; Poikilocytosis Slight; RBC 2.22 m/uL (4.30-5.90); RDW 17.9 % (11.5-15.5); WBC 4.5 k/uL (3.8-10.6)
[2019-04-29 03:16] LABS: Calcium 8.3 mg/dL (8.4-10.2); Magnesium 1.6 mg/dL (1.6-2.3); Phosphorus 4.2 mg/dL (2.5-4.5); Potassium 5.1 mmol/L (3.5-5.1)
[2019-04-29] MEDS ORDERED: Magnesium Replacement Protocol 1 EACH MISC MISCELLANE PRN (04:24)
[2019-04-29 04:31] LABS: Polychromasia Present
[2019-04-29 04:33] LABS: Platelet Count 94 k/uL (150-450)
[2019-04-29] MEDS: MAGNESIUM SULFATE-D5W PMX 1 GM in DEXTROSE/WATER 1 100ML.BAG IVPB SCH ×2 (05:22→06:25)
[2019-04-29] MEDS: FUROSEMIDE 10 MG/ML 4 ML VIAL IV SCH ×2 (05:22→15:09)
[2019-04-29] MEDS: LEVOTHYROXINE 50 MCG TAB PO SCH (06:25)
[2019-04-29] MEDS: INSULIN ASPART (NovoLOG) 100 UNIT/ML VIAL SQ SCH ×3 (06:51→20:20)
[2019-04-29 07:01] LABS: Glucose,Whole Blood 146 mg/dL (75-99)
[2019-04-29] MEDS: IPRATROPIUM-ALBUTEROL 3 ML NEB INHALATION SCH ×4 (07:31→19:58)
[2019-04-29] MEDS: HEPARIN SODIUM,PORCINE 5,000 UNIT/ML 1 ML VIAL SQ SCH ×3 (08:08→23:06)
--- NOTE | 2019-04-29 09:09 | XR ---
EXAMINATION TYPE: XR chest 1V portable DATE OF EXAM: 04/29/2019 Comparison: 04/28/2019 Clinical History: 79-year-old male possible fluid overload, re check in am Findings: Heart upper limits of normal in size. Relative upper lung lucencies may reflect underlying emphysema. Persistent, slightly increasing right infrahilar area and bibasilar opacities. No sizable effusion s een. Impression: Possible background of COPD. Stable to slightly increasing bilateral infrahilar/basilar opacities. In filtrates or atypical pulmonary edema are both considerations.
[2019-04-29 12:05] LABS: Glucose,Whole Blood 153 mg/dL (75-99)
--- NOTE | 2019-04-29 12:29 | P.CNPUL ---
<Tangela Urbina M - Last Filed: 04/29/19 11:58> History of Present Illness Consult date: 04/29/19 Requesting physician: Isis Sloan Reason for consult: dyspnea Chief complaint: Shortness of breath, fatigue, lower extremity edema History of present illness: This is a 79-year-old white male patient who was transferred to the intensive care unit last night on 04/28/2019 for concern of increasing dyspnea and worsening hypoxemia, patient had to be placed on 100% nonrebreather, and transferred to the ICU. Initially patient presented to the hospital on 04/27/2019 with a concern for possible sepsis, infection, patient was hypothermic on presentation, with a temp of 93.5F, he was quite weak, he was refusing to eat. Patient was receiving treatment for lower extremity cellulitis on his left foot and was on oral Bactrim. He had a recent hospitalization and was discharged home on 04/08/2019, patient had elevated LFTs during that admission and underwent biopsy of the liver, was diagnosed with primary biliary cirrhosis, pancreatic pseudocyst and chronic pancreatitis. Had a recent ERCP and stenting at [facility]. His past medical history is positive for multiple comorbidities including diabetes mellitus, hypertension, hyperlipidemia, previous myocardial infarction, history of developmental delay, history of CAD with stenting, and a remote history of nicotine dependence. Chest x-ray was completed in the emergency department on 04/27/2019 showing bilateral lower lobe infiltrates and small bilateral pleural effusions, on a background of COPD with superimposed venous congestion. Admission lab work showed a white blood cell count of 3.1, hemoglobin of 8.5, platelet count of 105, serum sodium of 143, potassium is 5.6, chloride is 1:15, CO2 is 21, BUN of 34, creatinine is 1.72, plasma lactic acid was 1.4, AST and ALT total bili were within normal limits, with alk phos was 291, which was significantly improved from previous hospitalization. ProBNP on admission was 7120, troponin was negative, urinalysis showed 4+ glucose but no evidence of infection. EKG showed sinus rhythm with a prolonged QT, of 452, QTC of 488 on admission. Echocardiogram was completed, showing mildly impaired LVEF of 45-50%, mild mitral and mild tricuspid regurgitation, mild pulmonary hypertension of 36 mmHg, no pericardial effusion. Last night patient developed increasing respiratory difficulty, chest x-ray was obtained showing pulmonary congestion increase, bilateral lower lobe pulmonary infiltrates with a symmetric pattern, worsening pulmonary edema was suspected, patient received additional doses of IV Lasix in addition to oral Lasix. He was started on IV Zosyn. This morning he is being seen in the intensive care unit, he diuresed after the Lasix, he is an active 3100 fluid balance over the last 24 hours, his been afebrile, his oxygenation has improved, his pulse ox is 91% on 2 L, he denies any respiratory difficulty, denies any chest pain. No cough or hemoptysis. Lung sounds reveal some b ilateral lower lobe crackles, no significant wheezing or rhonchi. Remains nothing by mouth, awaiting evaluation by speech therapy, blood and urine cultures have been negative. Review of Systems All systems: negative Constitutional: Denies chills, Denies fever Eyes: denies blurred vision, denies pain Ears, nose, mouth and throat: Denies headache, Denies sore throat Cardiovascular: Denies chest pain, Denies shortness of breath Respiratory: Reports dyspnea, Denies cough Gastrointestinal: Denies abdominal pain, Denies diarrhea, Denies nausea, Denies vomiting Musculoskeletal: Denies myalgias Integumentary: Denies pruritus, Denies rash Neurological: Denies numbness, Denies weakness Psychiatric: Denies anxiety, Denies depression Endocrine: Denies fatigue, Denies weight change Past Medical History Past Medical History: Cancer, Diabetes Mellitus, Hyperlipidemia, Hypertension, Myocardial Infarction (OR) Additional Past Medical History / Comment(s): Mental handicap-approx capacity at age 9.,bladder Ca approx 2013,elevated potassium Last Myocardial Infarction Date:: 2009 History of Any Multi-Drug Resistant Organisms: None Reported Past Surgical History: Heart Catheterization With Stent Additional Past Surgical History / Comment(s): bladder tumors removed; Cataract R eye, stent place in pancreatic duct Past Anesthesia/Blood Transfusion Reactions: No Reported Reaction Date of Last Stent Placement:: 2009 Past Psychological History: No Psychological Hx Reported Additional Psychological History / Comment(s): mentally handicapped Smoking Status: Never smoker Past Alcohol Use History: None Reported Additional Past Alcohol Use History / Comment(s): quit smoking 2009,1ppd Past Drug Use History: None Reported - Past Family History Father Family Medical History: Cancer Additional Family Medical History / Comment(s): lung Mother Family Medical History: COPD Additional Family Medical History / Comment(s): bowel surgeries Medications and Allergies Home Medications Medication Instructions Recorded Confirmed Type Calcitriol [Rocaltrol] 0.25 mcg PO Q48H 12/29/16 04/27/19 History Cholecalciferol [Vitamin D3 (25 2,000 unit PO DAILY 12/29/16 04/27/19 History Mcg = 1000 Iu)] Ferrous Sulfate [Iron (65 MG 325 mg PO BID 12/29/16 04/27/19 History Elemental)] Tamsulosin [Flomax] 0.4 mg PO DAILY 12/29/16 04/27/19 History Divalproex Sodium [Divalproex 1,000 mg PO DAILY 03/19/19 04/27/19 History Sodium ER] Insulin Aspart [NovoLOG Flexpen] 5 units SQ AC-TID 03/19/19 04/27/19 History Polyethylene Glycol 3350 [Miralax] 17 gm PO DAILY PRN 03/19/19 04/27/19 History Sennosides [Senna] 17.2 mg PO HS PRN 03/19/19 04/27/19 History Cyanocobalamin (Vitamin B-12) 1,000 mcg PO DAILY 04/03/19 04/27/19 History [Vitamin B-12] Acetaminophen [Tylenol] 650 mg PO Q6H PRN 04/27/19 04/27/19 History Sulfamethoxazole/Trimethoprim 1 tab PO BID 04/27/19 04/27/19 History [Bactrim DS 800-160 mg] Allergies Allergy/AdvReac Type Severity Reaction Status Date / Time lithium Allergy Unknown Verified 04/27/19 15:55 Physical Exam Vitals: Vital Signs Temp Pulse Pulse Pulse Resp BP BP 04/29/19 11:54 62 04/29/19 10:00 60 17 102/67 04/29/19 09:00 65 11 L 124/81 04/29/19 08:00 98.5 F 73 10 L 119/62 04/29/19 07:45 68 04/29/19 07:33 69 04/29/19 06:00 64 20 132/67 04/29/19 05:00 70 20 115/61 04/29/19 04:00 98.1 F 71 20 137/105 04/29/19 03:00 73 21 107/70 04/29/19 02:00 77 20 124/65 04/29/19 01:00 78 17 135/61 04/29/19 00:30 73 14 04/29/19 00:00 98 F 62 15 135/81 04/28/19 23:50 70 04/28/19 23:30 69 22 128/72 04/28/19 22:30 90 24 157/89 04/28/19 21:00 75 18 04/28/19 20:00 97.9 F 75 18 181/82 04/28/19 16:00 98.4 F 72 14 127/72 04/28/19 12:34 79 15 157/71 04/28/19 12:00 79 14 Pulse Ox 04/29/19 11:54 04/29/19 10:00 96 04/29/19 09:00 87 L 04/29/19 08:00 91 L 04/29/19 07:45 04/29/19 07:33 96 04/29/19 06:00 96 04/29/19 05:00 98 04/29/19 04:00 94 L 04/29/19 03:00 96 04/29/19 02:00 96 04/29/19 01:00 92 L 04/29/19 00:30 04/29/19 00:00 98 04/28/19 23:50 04/28/19 23:30 95 04/28/19 22:30 97 04/28/19 21:00 04/28/19 20:00 95 04/28/19 16:00 98 04/28/19 12:34 96 04/28/19 12:00 Intake and Output 04/28/19 04/29/19 04/29/19 22:59 06:59 14:59 Intake Total 222 140 Output Total 600 2315 1050 Balance -378 -8220 -1056 Intake: IV 140 .9-10ml/hr 40 Piperacillin-Tazobactam 3 100 .375 gm In Sodium Chloride 0.9% 100 ml @ 25 mls/hr IVPB Q8HR [facility] Rx# :[id number] Oral 222 Output: Urine 600 2315 1050 Other: Voiding Method Indwelling Catheter Indwelling Catheter # Bowel Movements 1 Weight 62.2 kg GENERAL EXAM: Alert, pleasant, 79-year-old white male, currently on 2 L of oxygen with a pulse ox of 91% comfortable in no apparent distress. HEAD: Normocephalic/atraumatic. EYES: Normal reaction of pupils, equal size. Conjunctiva pink, sclera white. NOSE: Clear with pink turbinates. THROAT: No erythema or exudates. NECK: No masses, no JVD, no thyroid enlargement, no adenopathy. CHEST: No chest wall deformity. Symmetrical expansion. LUNGS: Equal air entry with bilateral lower lobe crackles over posterior lower bases CVS: Regular rate and rhythm, normal S1 and S2, no gallops, no murmurs, no rubs ABDOMEN: Soft, nontender. No hepatosplenomegaly, normal bowel sounds, no guarding or rigidity. EXTREMITIES: No clubbing, no edema, no cyanosis, 2+ pulses and upper and lower extremities. MUSCULOSKELETAL: Muscle strength and tone normal. SPINE: No scoliosis or deformity SKIN: No rashes CENTRAL NERVOUS SYSTEM: Alert and oriented -3. No focal deficits, tone is normal in all 4 extremities. PSYCHIATRIC: Alert and oriented -3. Appropriate affect. Intact judgment and insight. Results - Laboratory Findings CBC and BMP: 04/29/19 02:41 04/29/19 02:41 ABG ABG pH 7.40 (7.35-7.45) 04/28/19 23:56 ABG pCO2 37 mmHg (35-45) 04/28/19 23:56 ABG pO2 91 mmHg (83-108) 04/28/19 23:56 ABG O2 Saturation 96.6 % (94-97) 04/28/19 23:56 Abnormal lab findings: Abnormal Labs 04/27/19 04/27/19 04/27/19 12:31 12:31 13:18 WBC 3.1 L RBC 2.38 L Hgb 8.5 L Hct 27.1 L MCV 113.4 H MCH 35.6 H MCHC RDW 18.8 H Plt Count 105 L Lymphocytes # 0.8 L Macrocytosis Marked A Potassium 5.6 H Chloride 115 H Carbon Dioxide 21 L BUN 34 H Creatinine 1.72 H Glucose 26 L* POC Glucose (mg/dL) 244 H Plasma Lactic Acid Alejandro Calcium Alkaline Phosphatase 291 H Total Protein 5.7 L Albumin 2.9 L TSH Urine Glucose (UA) 04/27/19 04/27/19 04/28/19 17:42 22:26 05:40 WBC RBC Hgb Hct MCV MCH MCHC RDW Plt Count Lymphocytes # Macrocytosis Potassium Chloride Carbon Dioxide BUN Creatinine Glucose POC Glucose (mg/dL) 70 L 180 H Plasma Lactic Acid Alejandro Calcium Alkaline Phosphatase Total Protein Albumin TSH 8.210 H Urine Glucose (UA) 04/28/19 04/28/19 04/28/19 05:40 05:40 06:28 WBC 2.4 L RBC 2.10 L Hgb 7.3 L Hct 23.7 L MCV 113.0 H MCH MCHC 30.9 L RDW 18.7 H Plt Count 95 L Lymphocytes # 0.4 L Macrocytosis Marked A Potassium 5.3 H Chloride 114 H Carbon Dioxide BUN 32 H Creatinine 1.80 H Glucose POC Glucose (mg/dL) 105 H Plasma Lactic Acid Alejandro Calcium Alkaline Phosphatase Total Protein Albumin TSH Urine Glucose (UA) 04/28/19 04/28/19 04/28/19 11:36 16:37 17:24 WBC RBC Hgb Hct MCV MCH MCHC RDW Plt Count Lymphocytes # Macrocytosis Potassium Chloride Carbon Dioxide BUN Creatinine Glucose POC Glucose (mg/dL) 209 H 239 H Plasma Lactic Acid Alejandro Calcium Alkaline Phosphatase Total Protein Albumin TSH Urine Glucose (UA) 4+ H 04/28/19 04/28/19 04/28/19 20:34 21:40 21:59 WBC RBC 2.52 L Hgb 9.0 L D Hct 29.4 L MCV 116.7 H MCH 35.8 H MCHC 30.7 L RDW 18.1 H Plt Count 138 L Lymphocytes # 0.8 L Macrocytosis Marked A Potassium Chloride Carbon Dioxide BUN Creatinine Glucose POC Glucose (mg/dL) 116 H 130 H Plasma Lactic Acid Alejandro Calcium Alkaline Phosphatase Total Protein Albumin TSH Urine Glucose (UA) 04/28/19 04/28/19 04/28/19 21:59 21:59 23:50 WBC RBC Hgb Hct MCV MCH MCHC RDW Plt Count Lymphocytes # Macrocytosis Potassium 5.3 H Chloride 114 H Carbon Dioxide 21 L BUN 32 H Creatinine 2.01 H Glucose 154 H POC Glucose (mg/dL) 171 H Plasma Lactic Acid Alejandro 2.3 H* Calcium Alkaline Phosphatase Total Protein Albumin TSH Urine Glucose (UA) 04/29/19 04/29/19 04/29/19 02:41 02:41 06:50 WBC RBC 2.22 L Hgb 8.0 L Hct 25.7 L MCV 116.0 H MCH 36.2 H MCHC RDW 17.9 H Plt Count 94 L Lymphocytes # 0.4 L Macrocytosis Marked A Potassium Chloride 113 H Carbon Dioxide BUN 33 H Creatinine 1.92 H Glucose 148 H POC Glucose (mg/dL) 146 H Plasma Lactic Acid Alejandro Calcium 8.3 L Alkaline Phosphatase Total Protein Albumin TSH Urine Glucose (UA) - Diagnostic Findings Chest x-ray: report reviewed, image reviewed Additional studies: Echocardiogram and EKG have been noted Assessment and Plan Assessment: Assessment: #1. Acute hypoxemic respiratory failure multifactorial, likely related to acute exacerbation of congestive heart failure with mildly impaired left surgical her systolic function, and the possibility of aspiration pneumonia is not excluded #2. Pancytopenia, recovering #3. Recent hospitalization for weakness, lower extremity edema, anasarca, acute renal failure and elevated LFTs. #4. Recent ERCP, and biliary stent placement at [facility] #5. Primary biliary stenosis #6. Chronic pancreatitis with a pancreatic pseudocyst #7. Cognitive delay, patient is a resident of a snf #8. Type 2 diabetes mellitus #9. Hypertension #10. Mild lactic acidosis, of 2.3, possibly related to infectious etiology, improved with IV hydration Plan: Patient has diuresed after additional doses of Lasix were administered, oxygenation has improved, FiO2 is down to 2 L, breathing easier, no acute dist ress, no fever or chills. He is covered with empiric antibiotics in the form of Zosyn, ID service is following, lactic acid has improved, will continue with nebulized bronchodilators, patient is nothing by mouth, will have speech therapy evaluate the patient and his swallowing ability. Continue gentle hydration, continue close hemodynamic monitoring, cardiology is following, no complaints of chest pain, no complaints of worsening dyspnea, no significant cough or congestion. We'll continue to follow I performed a history & physical examination of the patient and discussed their management with my nurse practitioner, Tangela Urbina. I reviewed the nurse practitioner's note and agree with the documented findings and plan of care. Lung sounds are positive for mild bibasilar rales. The findings and the impression was discussed with the patient. I attest to the documentation by the nurse practitioner. Plan: GENERAL EXAM: Alert, pleasant, 79-year-old white male, on 2 L of oxygen with a pulse ox of 91% comfortable in no apparent distress. HEAD: Normocephalic/atraumatic. EYES: Normal reaction of pupils, equal size. Conjunctiva pink, sclera white. NOSE: Clear with pink turbinates. THROAT: No erythema or exudates. NECK: No masses, no JVD, no thyroid enlargement, no adenopathy. CHEST: No chest wall deformity. Symmetrical expansion. LUNGS: Equal air entry with no crackles, wheeze, rhonchi or dullness. CVS: Regular rate and rhythm, normal S1 and S2, no gallops, no murmurs, no rubs ABDOMEN: Soft, nontender. No hepatosplenomegaly, normal bowel sounds, no guarding or rigidity. EXTREMITIES: No clubbing, no edema, no cyanosis, 2+ pulses and upper and lower extremities. MUSCULOSKELETAL: Muscle strength and tone normal. SPINE: No scoliosis or deformity SKIN: No rashes CENTRAL NERVOUS SYSTEM: Alert and oriented -3. No focal deficits, tone is normal in all 4 extremities. PSYCHIATRIC: Alert and oriented -3. Appropriate affect. Intact judgment and insight. Time with Patient: Greater than 30 <Sona Acharya - Last Filed: 04/29/19 13:51> Physical Exam Vitals: Vital Signs Temp Pulse Pulse Pulse Resp BP BP 04/29/19 12:08 64 04/29/19 12:00 97.7 F 56 L 13 106/67 04/29/19 11:54 62 04/29/19 11:00 51 L 8 L 106/69 04/29/19 10:00 60 17 102/67 04/29/19 09:00 65 11 L 124/81 04/29/19 08:00 98.5 F 73 10 L 119/62 04/29/19 07:45 68 04/29/19 07:33 69 04/29/19 06:00 64 20 132/67 04/29/19 05:00 70 20 115/61 04/29/19 04:00 98.1 F 71 20 137/105 04/29/19 03:00 73 21 107/70 04/29/19 02:00 77 20 124/65 04/29/19 01:00 78 17 135/61 04/29/19 00:30 73 14 04/29/19 00:00 98 F 62 15 135/81 04/28/19 23:50 70 04/28/19 23:30 69 22 128/72 04/28/19 22:30 90 24 157/89 04/28/19 21:00 75 18 04/28/19 20:00 97.9 F 75 18 181/82 04/28/19 16:00 98.4 F 72 14 127/72 Pulse Ox 04/29/19 12:08 04/29/19 12:00 96 04/29/19 11:54 04/29/19 11:00 92 L 04/29/19 10:00 96 04/29/19 09:00 87 L 04/29/19 08:00 91 L 04/29/19 07:45 04/29/19 07:33 96 04/29/19 06:00 96 04/29/19 05:00 98 04/29/19 04:00 94 L 04/29/19 03:00 96 04/29/19 02:00 96 04/29/19 01:00 92 L 04/29/19 00:30 04/29/19 00:00 98 04/28/19 23:50 04/28/19 23:30 95 04/28/19 22:30 97 04/28/19 21:00 04/28/19 20:00 95 04/28/19 16:00 98 Intake and Output 04/28/19 04/29/19 04/29/19 22:59 06:59 14:59 Intake Total 222 140 Output Total 600 2315 1175 Balance -668 -0825 -7131 Intake: IV 140 .9-10ml/hr 40 Piperacillin-Tazobactam 3 100 .375 gm In Sodium Chloride 0.9% 100 ml @ 25 mls/hr IVPB Q8HR [facility] Rx# :[id number] Oral 222 Output: Urine 600 2315 1175 Other: Voiding Method Indwelling Catheter Indwelling Catheter # Bowel Movements 1 Weight 62.2 kg Results - Laboratory Findings CBC and BMP: 04/29/19 02:41 04/29/19 02:41 ABG ABG pH 7.40 (7.35-7.45) 04/28/19 23:56 ABG pCO2 37 mmHg (35-45) 04/28/19 23:56 ABG pO2 91 mmHg (83-108) 04/28/19 23:56 ABG O2 Saturation 96.6 % (94-97) 04/28/19 23:56 Abnormal lab findings: Abnormal Labs 04/27/19 04/27/19 04/27/19 12:31 12:31 13:18 WBC 3.1 L RBC 2.38 L Hgb 8.5 L Hct 27.1 L MCV 113.4 H MCH 35.6 H MCHC RDW 18.8 H Plt Count 105 L Lymphocytes # 0.8 L Macrocytosis Marked A Potassium 5.6 H Chloride 115 H Carbon Dioxide 21 L BUN 34 H Creatinine 1.72 H Glucose 26 L* POC Glucose (mg/dL) 244 H Plasma Lactic Acid Alejandro Calcium Alkaline Phosphatase 291 H Total Protein 5.7 L Albumin 2.9 L TSH Urine Glucose (UA) 04/27/19 04/27/19 04/28/19 17:42 22:26 05:40 WBC RBC Hgb Hct MCV MCH MCHC RDW Plt Count Lymphocytes # Macrocytosis Potassium Chloride Carbon Dioxide BUN Creatinine Glucose POC Glucose (mg/dL) 70 L 180 H Plasma Lactic Acid Alejandro Calcium Alkaline Phosphatase Total Protein Albumin TSH 8.210 H Urine Glucose (UA) 04/28/19 04/28/19 04/28/19 05:40 05:40 06:28 WBC 2.4 L RBC 2.10 L Hgb 7.3 L Hct 23.7 L MCV 113.0 H MCH MCHC 30.9 L RDW 18.7 H Plt Count 95 L Lymphocytes # 0.4 L Macrocytosis Marked A Potassium 5.3 H Chloride 114 H Carbon Dioxide BUN 32 H Creatinine 1.80 H Glucose POC Glucose (mg/dL) 105 H Plasma Lactic Acid Alejandro Calcium Alkaline Phosphatase Total Protein Albumin TSH Urine Glucose (UA) 04/28/19 04/28/19 04/28/19 11:36 16:37 17:24 WBC RBC Hgb Hct MCV MCH MCHC RDW Plt Count Lymphocytes # Macrocytosis Potassium Chloride Carbon Dioxide BUN Creatinine Glucose POC Glucose (mg/dL) 209 H 239 H Plasma Lactic Acid Alejandro Calcium Alkaline Phosphatase Total Protein Albumin TSH Urine Glucose (UA) 4+ H 04/28/19 04/28/19 04/28/19 20:34 21:40 21:59 WBC RBC 2.52 L Hgb 9.0 L D Hct 29.4 L MCV 116.7 H MCH 35.8 H MCHC 30.7 L RDW 18.1 H Plt Count 138 L Lymphocytes # 0.8 L Macrocytosis Marked A Potassium Chloride Carbon Dioxide BUN Creatinine Glucose POC Glucose (mg/dL) 116 H 130 H Plasma Lactic Acid Alejandro Calcium Alkaline Phosphatase Total Protein Albumin TSH Urine Glucose (UA) 04/28/19 04/28/19 04/28/19 21:59 21:59 23:50 WBC RBC Hgb Hct MCV MCH MCHC RDW Plt Count Lymphocytes # Macrocytosis Potassium 5.3 H Chloride 114 H Carbon Dioxide 21 L BUN 32 H Creatinine 2.01 H Glucose 154 H POC Glucose (mg/dL) 171 H Plasma Lactic Acid Alejandro 2.3 H* Calcium Alkaline Phosphatase Total Protein Albumin TSH Urine Glucose (UA) 04/29/19 04/29/19 04/29/19 02:41 02:41 06:50 WBC RBC 2.22 L Hgb 8.0 L Hct 25.7 L MCV 116.0 H MCH 36.2 H MCHC RDW 17.9 H Plt Count 94 L Lymphocytes # 0.4 L Macrocytosis Marked A Potassium Chloride 113 H Carbon Dioxide BUN 33 H Creatinine 1.92 H Glucose 148 H POC Glucose (mg/dL) 146 H Plasma Lactic Acid Alejandro Calcium 8.3 L Alkaline Phosphatase Total Protein Albumin TSH Urine Glucose (UA) 04/29/19 11:53 WBC RBC Hgb Hct MCV MCH MCHC RDW Plt Count Lymphocytes # Macrocytosis Potassium Chloride Carbon Dioxide BUN Creatinine Glucose POC Glucose (mg/dL) 153 H Plasma Lactic Acid Alejandro Calcium Alkaline Phosphatase Total Protein Albumin TSH Urine Glucose (UA) Assessment and Plan Assessment: A joint evaluation that was done along with nurse practitioner. Acute decompensation of pulmonary status was related to aspiration. There is a bilateral lower lobe consolidation. The patient on IV Zosyn. Clinically improved. Currently on 2 L of oxygen any is hemodynamically stable. Swallow evaluation. We'll continue to follow.
[2019-04-29] MEDS: SODIUM CHLORIDE 0.9% 1,000 ML IV SCH ×2 (13:35→21:05)
--- NOTE | 2019-04-29 14:08 | FL ---
EXAMINATION TYPE: FL barium swallow w video DATE OF EXAM: 04/29/2019 MODIFIED SWALLOW / DEGLUTITION STUDY CLINICAL HISTORY: Dysphagia. TECHNIQUE: Deglutition study is performed utilizing thin liquid barium, nectar thick liquid barium, and barium coated cracker. 3 minutes and 6 seconds of fluoroscopy time was utilized with 0 images maximilian ed as the examination was video recorded. COMPARISON: None. FINDINGS: The oral and pharyngeal phases show satisfactory initiation and propagation with all modali ties tested. Normal mastication is seen with solid modalities tested. Vallecular and piriform as wel l as posterior pharyngeal wall residue was appreciated throughout the exam with solid consistencies, mild in degree. Aspiration, likely from residuals, towards the end of the examination that did not el icit a cough reflex. Repeated transient penetration was seen with the thin liquid consistency with an d without a straw. IMPRESSION: Repeated transient penetration with the thin consistency with and without a straw and fra nk aspiration, likely from residuals, without eliciting a cough reflex. Please refer to speech thera pist notes for further details if necessary.
[2019-04-29] MEDS: CHOLECALCIFEROL 1,000 UNIT TAB PO SCH (15:07)
[2019-04-29] MEDS: CYANOCOBALAMIN 500 MCG TAB PO SCH (15:08)
[2019-04-29] MEDS: LISINOPRIL 5 MG TAB PO SCH (15:08)
[2019-04-29] MEDS: DIVALPROEX ER 500 MG TAB.ER.24H PO SCH (15:08)
[2019-04-29] MEDS: TAMSULOSIN 0.4 MG CAP.ER.24H PO SCH (15:08)
[2019-04-29] MEDS: PANTOPRAZOLE 40 MG/10 ML VIAL IV SCH (15:09)
--- NOTE | 2019-04-29 15:18 | P.PN ---
Subjective Progress Note Date: 04/29/19 Principal diagnosis: This is a 79-year-old male who was recently admitted for pain and swelling of the lower extremities, and pneumonia and is being closely monitored. Patient is currently on IV antibiotics in the form of Rocephin. Infectious disease and cardiology have been consulted. Today patient is sitting up in the bed in no acute distress. Brother and legal guardian are at the bedside. Lower extremities have improved with a decrease in the swelling and redness. Patient denies any chest pain, shortness of breath, or palpitations at this time. Patient denies any nausea or vomiting and has been tolerating diet. Patient has been afebrile. Guarded prognosis. 04/29/2019 Patient is sitting up in the chair in no acute distress. He is at the bedside. Patient is currently in the ICU as he had some worsening shortness of breath and difficulty in breathing last night and has been requiring oxygen. Per nursing staff they were unsure if he had choked on some Coca-Cola that he drank and possibly aspirated and a swallow eval was ordered and is pending at this time. Patient has not been eating on to the etiology done and would like to eat today he states. This morning he is doing much better and is currently on 2 L via nasal cannula. Pulmonary is following the patient closely. Will continue to monitor closely. Constitutional: Denies fatigue, Reports poor appetite, Reports mild weakness Ears, nose, mouth and throat: Denies dysphagia, Denies mouth pain, Denies vertigo Cardiovascular: Denies decreased exercise tolerance, Denies dyspnea on exertion, Denies lightheadedness, Denies shortness of breath, Denies syncope Respiratory: Reports cough, Denies cough with sputum, Denies dyspnea, Denies excessive sputum, Denies hemoptysis, Denies home oxygen, Denies wheezing Gastrointestinal: Denies abdominal pain, Denies constipation, Denies diarrhea, Denies loss of appetite, Denies nausea, Denies vomiting, reports hunger Genitourinary: Reports urinary retention, Denies dysuria Musculoskeletal: Denies frequent falls, Denies gait dysfunction, Denies myalgias Integumentary: Denies pruritus, Denies rash, reports redness and swelling of lower legs Neurological: Denies numbness, Denies weakness Psychiatric: Denies anxiety, Denies depression Endocrine: Reports low blood sugars, Denies weight change Active Medications Acetaminophen (Tylenol Tab) 650 mg PO Q6H PRN PRN Reason: Pain Albuterol/Ipratropium (Duoneb 0.5 Mg-3 Mg/3 Ml Soln) 3 ml INHALATION RT-QID PRN PRN Reason: Shortness Of Breath Or Wheezing Albuterol/Ipratropium (Duoneb 0.5 Mg-3 Mg/3 Ml Soln) 3 ml INHALATION RT-QID [facility] Last Admin: 04/29/19 11:53 Dose: 3 ml Documented by: Atorvastatin Calcium (Lipitor) 40 mg PO HS [facility] Last Admin: 04/28/19 21:20 Dose: 40 mg Documented by: Calcitriol (Rocaltrol) 0.25 mcg PO Q48H [facility] Last Admin: 04/27/19 22:56 Dose: 0.25 mcg Documented by: Cholecalciferol (Vitamin D3 (25 Mcg = 1000 Iu)) 2,000 unit PO DAILY [facility] Cyanocobalamin (Vitamin B-12) 1,000 mcg PO DAILY [facility] Last Admin: 04/28/19 10:36 Dose: 1,000 mcg Documented by: Divalproex Sodium (Depakote Er) 1,000 mg PO DAILY [facility] Last Admin: 04/28/19 10:37 Dose: 1,000 mg Documented by: Ferrous Sulfate (Feosol) 325 mg PO BID [facility] Last Admin: 04/28/19 21:20 Dose: 325 mg Documented by: Furosemide (Lasix) 40 mg IV BID@0600,1600 [facility] Last Admin: 04/29/19 05:22 Dose: 40 mg Documented by: Heparin Sodium (Porcine) (Heparin) 5,000 unit SQ Q8HR [facility] Last Admin: 04/29/19 08:08 Dose: 5,000 unit Documented by: Sodium Chloride (Saline 0.9%) 1,000 mls @ 10 mls/hr IV .Q24H [facility] Last Admin: 04/28/19 17:31 Dose: Not Given Documented by: Piperacillin Sod/Tazobactam (Sod 3.375 gm/ Sodium Chloride) 100 mls @ 25 mls/hr IVPB Q8HR [facility] Last Admin: 04/29/19 08:18 Dose: 25 mls/hr Documented by: Sodium Chloride (Saline 0.9%) 1,000 mls @ 75 mls/hr IV .[id number] [facility] Insulin Aspart (Novolog) 0 unit SQ ACHS [facility]; Protocol Last Admin: 04/29/19 14:55 Dose: Not Given Documented by: Levothyroxine Sodium (Synthroid) 50 mcg PO DAILY@0630 [facility] Last Admin: 04/29/19 06:25 Dose: Not Given Documented by: Lisinopril (Zestril) 5 mg PO DAILY [facility] Last Admin: 04/28/19 10:38 Dose: 5 mg Documented by: Miscellaneous Information (Magnesium Per Protocol) 1 each MISCELLANE DAILY PRN; Protocol PRN Reason: Per Protocol Naloxone HCl (Narcan) 0.2 mg IV Q2M PRN PRN Reason: Opioid Reversal Pantoprazole Sodium (Protonix) 40 mg IV DAILY [facility] Polyethylene Glycol (Miralax) 17 gm PO DAILY PRN PRN Reason: Constipation Senna (Senokot) 17.2 mg PO HS PRN PRN Reason: Constipation Tamsulosin HCl (Flomax) 0.4 mg PO DAILY [facility] Last Admin: 04/28/19 10:38 Dose: 0.4 mg Documented by: Objective - Vital Signs Vital signs: Vital Signs Temp 97.7 F 04/29/19 12:00 Pulse 64 04/29/19 12:08 Resp 13 04/29/19 12:00 BP 106/67 04/29/19 12:00 Pulse Ox 96 04/29/19 12:00 Intake & Output 04/28/19 04/29/19 04/29/19 18:59 06:59 18:59 Intake Total 905 140 Output Total 1350 2815 1175 Balance -445 -9525 -1173 Weight 63 kg 62.2 kg Intake: IV 140 .9-10ml/hr 40 Piperacillin-Tazobactam 3 100 .375 gm In Sodium Chloride 0.9% 100 ml @ 25 mls/hr IVPB Q8HR [facility] Rx# :[id number] Oral 905 Output: Urine 1350 2815 1175 Other: Voiding Method Indwelling Catheter Indwelling Catheter # Bowel Movements 2 1 - Exam Gen: This is a 79-year-old male sitting up in the chair in the ICU in no acute distress. Vital signs are stable. Blood pressure is 119/62, pulse is 73, respirations are 10, temp is 98.5 oral, oxygen saturation is 91% on 2 L via nasal cannula. HEENT: Head is atraumatic, normocephalic. Pupils equal, round. Sclerae is anicteric. NECK: Supple. Mild JVD noted. No lymphadenopathy. No thyromegaly. LUNGS: Diminished breath sounds at the bases with a few scattered rhonchi. No intercostal retractions. HEART: Regular rate and rhythm. Systolic murmur. ABDOMEN: Soft. Bowel sounds are present. No masses. No tenderness. EXTREMITIES: Mild erythema and swelling noted to bilateral lower extremities. No calf tenderness. NEUROLOGICAL: Patient is awake, alert and oriented x2. Cranial nerves 2 through 12 are grossly intact. - Labs CBC & Chem 7: 04/29/19 02:41 04/29/19 02:41 Labs: Abnormal Lab Results - Last 24 Hours (Table) 04/28/19 04/28/19 04/28/19 Range/Units 16:37 17:24 20:34 RBC (4.30-5.90) m/uL Hgb (13.0-17.5) gm/dL Hct (39.0-53.0) % MCV (80.0-100.0) fL MCH (25.0-35.0) pg MCHC (31.0-37.0) g/dL RDW (11.5-15.5) % Plt Count (150-450) k/uL Lymphocytes # (1.0-4.8) k/uL Macrocytosis Potassium (3.5-5.1) mmol/L Chloride (98-107) mmol/L Carbon Dioxide (22-30) mmol/L BUN (9-20) mg/dL Creatinine (0.66-1.25) mg/dL Glucose (74-99) mg/dL POC Glucose (mg/dL) 239 H 116 H (75-99) mg/dL Plasma Lactic Acid Alejandro (0.7-2.0) mmol/L Calcium (8.4-10.2) mg/dL Urine Glucose (UA) 4+ H (Negative) 04/28/19 04/28/19 04/28/19 Range/Units 21:40 21:59 21:59 RBC 2.52 L (4.30-5.90) m/uL Hgb 9.0 L D (13.0-17.5) gm/dL Hct 29.4 L (39.0-53.0) % MCV 116.7 H (80.0-100.0) fL MCH 35.8 H (25.0-35.0) pg MCHC 30.7 L (31.0-37.0) g/dL RDW 18.1 H (11.5-15.5) % Plt Count 138 L (150-450) k/uL Lymphocytes # 0.8 L (1.0-4.8) k/uL Macrocytosis Marked A Potassium 5.3 H (3.5-5.1) mmol/L Chloride 114 H (98-107) mmol/L Carbon Dioxide 21 L (22-30) mmol/L BUN 32 H (9-20) mg/dL Creatinine 2.01 H (0.66-1.25) mg/dL Glucose 154 H (74-99) mg/dL POC Glucose (mg/dL) 130 H (75-99) mg/dL Plasma Lactic Acid Alejandro (0.7-2.0) mmol/L Calcium (8.4-10.2) mg/dL Urine Glucose (UA) (Negative) 04/28/19 04/28/19 04/29/19 Range/Units 21:59 23:50 02:41 RBC 2.22 L (4.30-5.90) m/uL Hgb 8.0 L (13.0-17.5) gm/dL Hct 25.7 L (39.0-53.0) % MCV 116.0 H (80.0-100.0) fL MCH 36.2 H (25.0-35.0) pg MCHC (31.0-37.0) g/dL RDW 17.9 H (11.5-15.5) % Plt Count 94 L (150-450) k/uL Lymphocytes # 0.4 L (1.0-4.8) k/uL Macrocytosis Marked A Potassium (3.5-5.1) mmol/L Chloride (98-107) mmol/L Carbon Dioxide (22-30) mmol/L BUN (9-20) mg/dL Creatinine (0.66-1.25) mg/dL Glucose (74-99) mg/dL POC Glucose (mg/dL) 171 H (75-99) mg/dL Plasma Lactic Acid Alejandro 2.3 H* (0.7-2.0) mmol/L Calcium (8.4-10.2) mg/dL Urine Glucose (UA) (Negative) 04/29/19 04/29/19 04/29/19 Range/Units 02:41 06:50 11:53 RBC (4.30-5.90) m/uL Hgb (13.0-17.5) gm/dL Hct (39.0-53.0) % MCV (80.0-100.0) fL MCH (25.0-35.0) pg MCHC (31.0-37.0) g/dL RDW (11.5-15.5) % Plt Count (150-450) k/uL Lymphocytes # (1.0-4.8) k/uL Macrocytosis Potassium (3.5-5.1) mmol/L Chloride 113 H (98-107) mmol/L Carbon Dioxide (22-30) mmol/L BUN 33 H (9-20) mg/dL Creatinine 1.92 H (0.66-1.25) mg/dL Glucose 148 H (74-99) mg/dL POC Glucose (mg/dL) 146 H 153 H (75-99) mg/dL Plasma Lactic Acid Alejandro (0.7-2.0) mmol/L Calcium 8.3 L (8.4-10.2) mg/dL Urine Glucose (UA) (Negative) Microbiology - Last 24 Hours (Table) 04/27/19 12:31 Blood Culture - Preliminary Blood No Growth after 48 hours 04/27/19 17:24 Urine Culture - Preliminary Urine,Catheterized Assessment and Plan Assessment: Bilateral leg swelling and cellulitis with failure of outpatient treatment; infectious disease is following Acute hypoxemic respiratory failure, multifactorial, possibly related to acute exacerbation of congestive heart failure with systolic dysfunction, possibly related to aspiration pneumonia; pulmonary is following closely Diabetes mellitus type 2 with hypoglycemia, uncontrolled Increased creatinine with chronic kidney disease stage III; current creatinine is 1.92 Hyperkalemia, mild; current potassium is 5.1 Mild pancytopenia of undetermined etiology Elevated alkaline phosphatase Recent liver biopsy inconclusive pending secondary consultation for rule out primary biliary cirrhosis, chronic cholestatic findings Hypertension Hyperlipidemia history of myocardial infarction History of mentally handicapped History of coronary artery disease/stent History of bladder tumor History of cataracts Remote history of nicotine dependence Full code Recommendations and discussion: Recommend to continue current medications, management, and symptomatic treatment. Cardiology, pulmonary, and infectious disease are following. Swallow eval was ordered today and is currently pending. Patient is nothing by mouth at this time. Patient will continue with IV antibiotics in the form of Zosyn at this time. Patient is receiving IV Lasix and diuresing well. Will continue to monitor vital signs and labs closely. Guarded prognosis. Further recommendations to follow.
--- NOTE | 2019-04-29 15:34 | PN ---
PROGRESS NOTE This patient is seen in the intensive care unit. The events over the last 24 hours. last night reviewed. Patient developed respiratory distress and acute congestive cardiac failure. The patient was given IV Lasix with significant improvement. At present, the patient is sitting in the chair. comfortably without any respiratory distress. This patient was admitted with cellulitis and possible congestive cardiac failure yesterday. At present, patient's heart rate is 64 per minute, blood pressure is 106/67 mmHg. First and second heart sounds are normal. Lung examinations revealed a few basal rales. Abdomen is soft. Chest x-ray is suggestive of congestive cardiac failure. IMPRESSION: This patient developed acute on chronic congestive cardiac failure. Patient seems to be responding to the IV Lasix. We will continue the current medications. Patient has a known history of coronary artery disease. MMODL / IJN: [id number] /
[2019-04-29] MEDS: FERROUS SULFATE 325 MG TAB PO SCH ×2 (16:37→20:14)
[2019-04-29] MEDS ORDERED: INSULIN ASPART (NovoLOG) 100 UNIT/ML VIAL SQ ONE (17:46)
[2019-04-29] MEDS: ATORVASTATIN 40 MG TAB PO SCH (20:14)
[2019-04-29 20:27] LABS: Glucose,Whole Blood 347 mg/dL (75-99)
[2019-04-29] MEDS: CALCITRIOL 0.25 MCG CAP PO SCH (21:31)
--- NOTE | 2019-04-29 23:12 | P.PN ---
Subjective Progress Note Date: 04/29/19 This is a 79-year-old male who resides at [facility] with the legal guardian which is his brother. 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 Patient had a recent ERCP and stenting at [facility] with findings of chronic pancreatitis and pseudocyst biliary stricture. 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 There is very minimal portal inflammation with mild periportal fibrosis. It was thought that the alkaline phosphatase most likely secondary to vascular or cardiac compromise rather than biliary cause. Patient also has underlying history of bladder cancer with chronic Romero catheter, diabetes mellitus type 2, intellectual delay. On previous admission to this, patient was found to have Klebsiella oxytoca bacteremia and positive urinary tract infection. He was transferred to [facility] and most likely completed course of antibiotics for this. Klebsiella oxytoca sepsis susceptible to ceftriaxone. Most recently, patient has been treated at the intermediate for cellulitis of the left lower extremity with Bactrim and the caregivers noted yesterday that he was not eating which was unlike him. Patient had increasing weakness and lethargy. Patient presented with a temperature of 93.5, WBC 3.1, hemoglobin 8.5, platelet count 105, BUN 34 and creatinine 1.72 and potassium is 5.6. Blood sugar was 26. Patient was given an amp of D50 and he was more alert following this. There was no noted focal neurological deficits. Patient was given calcium gluconate and IV Lasix. Chest x-ray was concerning for possible pneumonia. Lactic acid was normal. Patient was admitted to the cardiac stepdown unit and seen in consultation by cardiology. At the time of this evaluation, patient is sitting up, he is complaining of feeling sleepy and states he did not sleep well last night. He can answer most questions appropriately. He did eat 100% of his breakfast this morning. He has had 2 soft brown stools. Patient has a chronic Romero catheter in place. No decubitus ulcers. \2018 Patient is admitted videoscopic swallow study performed today there is evidence of bev aspiration. Most recent chest x-ray does show some ongoing pneumonia. He was transferred to intensive care unit because of his hypotension that is improving today. The patient is modestly comfortable constipation is resolved and his had multiple soft stools. Objective - Vital Signs Vital signs: Vital Signs Temp 96.9 F L 04/29/19 20:00 Pulse 60 04/29/19 20:08 Resp 12 04/29/19 20:00 BP 131/77 04/29/19 20:00 Pulse Ox 96 04/29/19 20:00 Intake & Output 04/29/19 04/29/19 04/30/19 06:59 18:59 06:59 Intake Total 140 545 280 Output Total 2815 2515 350 Balance -267 Weight 62.2 kg Intake: IV 140 425 .9-10ml/hr 40 225 Piperacillin-Tazobactam 3 100 200 .375 gm In Sodium Chloride 0.9% 100 ml @ 25 mls/hr IVPB Q8HR [facility] Rx# :[id number] Intake, IV Titration 180 Amount Sodium Chloride 0.9% 1, 180 000 ml @ 75 mls/hr IV . [id number] [facility] Rx#:[id number] Oral 120 100 Output: Urine 2815 2515 350 Other: Voiding Method Indwelling Catheter Indwelling Catheter Indwelling Catheter # Bowel Movements 1 1 - Exam Gen: This is a 79-year-old male. Patient appears thin with muscle wasting to the extremities. He appears to be in no acute distress. HEENT: Head is atraumatic, normocephalic. Pupils equal, round. Sclerae is anicteric. NECK: Supple. No JVD. No lymphadenopathy. No thyromegaly. LUNGS: Diminished in the bases. No wheezes or rhonchi. No intercostal retractions. HEART: Regular rate and rhythm. Systolic murmur. ABDOMEN: Soft. Bowel sounds are present. No masses. No tenderness. Romero cat heter draining akila urine. Has had fecal incontinence EXTREMITIES: No pedal edema. Dorsalis pedis +1 bilateral. Mild pretibial edema and erythema slightly worse to the left. No drainage noted. NEUROLOGICAL: Patient is awake, alert and oriented x2. No focal neuro deficits. - Labs CBC & Chem 7: 04/29/19 02:41 04/29/19 02:41 Labs: Abnormal Lab Results - Last 24 Hours (Table) 04/28/19 04/29/19 04/29/19 Range/Units 23:50 02:41 02:41 RBC 2.22 L (4.30-5.90) m/uL Hgb 8.0 L (13.0-17.5) gm/dL Hct 25.7 L (39.0-53.0) % MCV 116.0 H (80.0-100.0) fL MCH 36.2 H (25.0-35.0) pg RDW 17.9 H (11.5-15.5) % Plt Count 94 L (150-450) k/uL Lymphocytes # 0.4 L (1.0-4.8) k/uL Macrocytosis Marked A Chloride 113 H (98-107) mmol/L BUN 33 H (9-20) mg/dL Creatinine 1.92 H (0.66-1.25) mg/dL Glucose 148 H (74-99) mg/dL POC Glucose (mg/dL) 171 H (75-99) mg/dL Calcium 8.3 L (8.4-10.2) mg/dL 04/29/19 04/29/19 04/29/19 Range/Units 06:50 11:53 20:16 RBC (4.30-5.90) m/uL Hgb (13.0-17.5) gm/dL Hct (39.0-53.0) % MCV (80.0-100.0) fL MCH (25.0-35.0) pg RDW (11.5-15.5) % Plt Count (150-450) k/uL Lymphocytes # (1.0-4.8) k/uL Macrocytosis Chloride (98-107) mmol/L BUN (9-20) mg/dL Creatinine (0.66-1.25) mg/dL Glucose (74-99) mg/dL POC Glucose (mg/dL) 146 H 153 H 347 H (75-99) mg/dL Calcium (8.4-10.2) mg/dL Microbiology - Last 24 Hours (Table) 04/27/19 17:24 Urine Culture - Final Urine,Catheterized 04/27/19 12:31 Blood Culture - Preliminary Blood No Growth after 48 hours Laboratory Results WBC 4.5 k/uL (3.8-10.6) 04/29/19 02:41 RBC 2.22 m/uL (4.30-5.90) L 04/29/19 02:41 Hgb 8.0 gm/dL (13.0-17.5) L 04/29/19 02:41 Hct 25.7 % (39.0-53.0) L 04/29/19 02:41 MCV 116.0 fL (80.0-100.0) H 04/29/19 02:41 MCH 36.2 pg (25.0-35.0) H 04/29/19 02:41 MCHC 31.2 g/dL (31.0-37.0) 04/29/19 02:41 RDW 17.9 % (11.5-15.5) H 04/29/19 02:41 Plt Count 94 k/uL (150-450) L 04/29/19 02:41 Neutrophils % 84 % 04/29/19 02:41 Lymphocytes % 9 % 04/29/19 02:41 Monocytes % 4 % 04/29/19 02:41 Eosinophils % 1 % 04/29/19 02:41 Basophils % 1 % 04/29/19 02:41 Neutrophils # 3.8 k/uL (1.3-7.7) 04/29/19 02:41 Lymphocytes # 0.4 k/uL (1.0-4.8) L 04/29/19 02:41 Monocytes # 0.2 k/uL (0-1.0) 04/29/19 02:41 Eosinophils # 0.1 k/uL (0-0.7) 04/29/19 02:41 Basophils # 0.0 k/uL (0-0.2) 04/29/19 02:41 Manual Slide Review Performed 04/29/19 02:41 Polychromasia Present 04/29/19 02:41 Hypochromasia Marked 04/29/19 02:41 Poikilocytosis Slight 04/29/19 02:41 Poikilocytosis (manual Present 04/28/19 21:59 Anisocytosis Slight 04/29/19 02:41 Macrocytosis Marked A 04/29/19 02:41 Sample Site [facility] 04/28/19 23:56 ABG pH 7.40 (7.35-7.45) 04/28/19 23:56 ABG pCO2 37 mmHg (35-45) 04/28/19 23:56 ABG pO2 91 mmHg (83-108) 04/28/19 23:56 ABG HCO3 23 mmol/L (21-25) 04/28/19 23:56 ABG Total CO2 24 mmol/L (19-24) 04/28/19 23:56 ABG O2 Saturation 96.6 % (94-97) 04/28/19 23:56 ABG Base Excess -1.7 mmol/L 04/28/19 23:56 Aston Test Yes 04/28/19 23:56 FiO2 100 % 04/28/19 23:56 Sodium 141 mmol/L (137-145) 04/29/19 02:41 Potassium 5.1 mmol/L (3.5-5.1) 04/29/19 02:41 Chloride 113 mmol/L (98-107) H 04/29/19 02:41 Carbon Dioxide 22 mmol/L (22-30) 04/29/19 02:41 Anion Gap 6 mmol/L 04/29/19 02:41 BUN 33 mg/dL (9-20) H 04/29/19 02:41 Creatinine 1.92 mg/dL (0.66-1.25) H 04/29/19 02:41 Est GFR (CKD-EPI)AfAm 38 (>60 ml/min/1.73 sqM) 04/29/19 02:41 Est GFR (CKD-EPI)NonAf 33 (>60 ml/min/1.73 sqM) 04/29/19 02:41 Glucose 148 mg/dL (74-99) H 04/29/19 02:41 POC Glucose (mg/dL) 347 mg/dL (75-99) H 04/29/19 20:16 POC Glu Cargo Bracer ID Ivy Conde 04/29/19 20:16 Lactic Ac Sepsis Rflx Y 04/28/19 22:30 Plasma Lactic Acid Alejandro 1.7 mmol/L (0.7-2.0) 04/29/19 01:53 Calcium 8.3 mg/dL (8.4-10.2) L 04/29/19 02:41 Phosphorus 4.2 mg/dL (2.5-4.5) 04/29/19 02:41 Magnesium 1.6 mg/dL (1.6-2.3) 04/29/19 02:41 Total Bilirubin 0.7 mg/dL (0.2-1.3) 04/27/19 12:31 AST 31 U/L (17-59) 04/27/19 12:31 ALT 28 U/L (21-72) 04/27/19 12:31 Alkaline Phosphatase 291 U/L (38-126) H 04/27/19 12:31 Troponin I <0.012 ng/mL (0.000-0.034) 04/27/19 12:30 NT-Pro-B Natriuret Pep 7120 pg/mL 04/27/19 12:31 Total Protein 5.7 g/dL (6.3-8.2) L 04/27/19 12:31 Albumin 2.9 g/dL (3.5-5.0) L 04/27/19 12:31 TSH 8.210 mIU/L (0.465-4.680) H 04/28/19 05:40 Free T4 1.31 ng/dL (0.78-2.19) 04/28/19 05:40 Urine Color Light Yellow 04/28/19 17:24 Urine Appearance Clear (Clear) 04/28/19 17:24 Urine pH 5.5 (5.0-8.0) 04/28/19 17:24 Ur Specific Bates 1.012 (1.001-1.035) 04/28/19 17:24 Urine Protein Negative (Negative) 04/28/19 17:24 Urine Glucose (UA) 4+ (Negative) H 04/28/19 17:24 Urine Ketones Negative (Negative) 04/28/19 17:24 Urine Blood Negative (Negative) 04/28/19 17:24 Urine Nitrite Negative (Negative) 04/28/19 17:24 Urine Bilirubin Negative (Negative) 04/28/19 17:24 Urine Urobilinogen <2.0 mg/dL (<2.0) 04/28/19 17:24 Ur Leukocyte Esterase Negative (Negative) 04/28/19 17:24 Microbiology 04/27/19 17:24 Urine,Catheterized Urine Culture - Final 04/27/19 12:31 Blood Blood Culture - Preliminary No Growth after 48 hours video swallow with aspiration Assessment and Plan (1) CHF (congestive heart failure) Current Visit: Yes Status: Acute Code(s): I50.9 - HEART FAILURE, UNSPECIFIED SNOMED Code(s): 83871509 (2) Cognitive developmental delay Current Visit: No Status: Chronic Code(s): F81.9 - DEVELOPMENTAL DISORDER OF SCHOLASTIC SKILLS, UNSPECIFIED SNOMED Code(s): 229905586 (3) Pneumonia Narrative/Plan: 79-year-old male resides in a intermediate presents to Hospital with increasing weakness and lethargy. He had relative hypothermia and some ongoing pancytopenia. He was recently hospitalized which point in time he did have difficulties with Klebsiella oxytoca urinary tract infection and bacteremia. He also is having difficulties and underwent liver biopsy. No evidence of primary biliary cholangitis was found the patient continues with ongoing decline of his status. He has now admitted with evidence of infection from urinary tract a ntibiotic therapy with Rocephin has been initiated. Urinary catheter change has been requested. Patient has evidence of a fall and has some bruising to the bilateral pretibial areas but they are not open weeping or draining. Cultures will help guide the course of therapy especially for the time of discharge. It is possible the patient's trimethoprim sulfamethoxazole his worsened his pancytopenia and is now discontinued. Nutritional supplementation in monitoring for recovery of his bone marrow is in process. patient's status worsened. According to the ICU for acute hypoxic respiratory failure on the basis of acute congestive heart failure and likely aspiration pneumonitis. The patient has been seen by pulmonary critical care. He has been made nothing by mouth and the determination is being made as to his further feeding status. Antibiotic therapy with Zosyn continues. His pancytopenia seems to be improving. Current Visit: Yes Status: Acute Code(s): J18.9 - PNEUMONIA, UNSPECIFIED ORGANISM SNOMED Code(s): 765049649
[2019-04-30 00:04] LABS: Glucose,Whole Blood 69 mg/dL (75-99)
[2019-04-30 00:24] LABS: Glucose,Whole Blood 88 mg/dL (75-99)
[2019-04-30 04:52] LABS: Anisocytosis Slight; Basophils % (A) 1 %; Eosinophils # (A) 0.1 k/uL (0-0.7); Eosinophils % (A) 3 %; HCT 21.9 % (39.0-53.0); Hypochromasia Moderate; Lymphocytes # (A) 0.6 k/uL (1.0-4.8); Lymphocytes % (A) 21 %; MCH 35.2 pg (25.0-35.0); MCHC 31.8 g/dL (31.0-37.0); Macrocytosis Marked; Mean Platelet Volume 9.6; Monocytes # (A) 0.2 k/uL (0-1.0); Monocytes % (A) 5 %; Neutrophils # (A) 1.9 k/uL (1.3-7.7); Neutrophils % (A) 67 %; Poikilocytosis Slight; RBC 1.98 m/uL (4.30-5.90); WBC 2.9 k/uL (3.8-10.6)
[2019-04-30 04:54] LABS: MCV 110.8 fL (80.0-100.0); Platelet Count 62 k/uL (150-450)
[2019-04-30 05:27] LABS: Calcium 8.5 mg/dL (8.4-10.2); Magnesium 1.8 mg/dL (1.6-2.3); Phosphorus 3.9 mg/dL (2.5-4.5); Potassium 4.2 mmol/L (3.5-5.1)
[2019-04-30] MEDS: LEVOTHYROXINE 50 MCG TAB PO SCH (05:36)
[2019-04-30] MEDS: FUROSEMIDE 10 MG/ML 4 ML VIAL IV SCH ×2 (05:36→16:41)
[2019-04-30 06:04] LABS: Glucose,Whole Blood 88 mg/dL (75-99)
[2019-04-30] MEDS: INSULIN ASPART (NovoLOG) 100 UNIT/ML VIAL SQ SCH ×4 (06:56→21:02)
[2019-04-30 07:03] LABS: Glucose,Whole Blood 97 mg/dL (75-99)
[2019-04-30] MEDS: HEPARIN SODIUM,PORCINE 5,000 UNIT/ML 1 ML VIAL SQ SCH ×3 (07:07→23:11)
[2019-04-30] MEDS: IPRATROPIUM-ALBUTEROL 3 ML NEB INHALATION SCH ×4 (07:40→19:07)
[2019-04-30] MEDS: CYANOCOBALAMIN 500 MCG TAB PO SCH (08:13)
[2019-04-30] MEDS: DIVALPROEX ER 500 MG TAB.ER.24H PO SCH (08:14)
[2019-04-30] MEDS: PIPERACILLIN-TAZOBACTAM 3.375 GM in SODIUM CHLORIDE 0.9% 100 ML IVPB SCH (08:14)
[2019-04-30] MEDS: CHOLECALCIFEROL 1,000 UNIT TAB PO SCH (08:14)
[2019-04-30] MEDS: FERROUS SULFATE 325 MG TAB PO SCH ×2 (08:14→21:02)
[2019-04-30] MEDS: PANTOPRAZOLE 40 MG/10 ML VIAL IV SCH (08:24)
[2019-04-30] MEDS: TAMSULOSIN 0.4 MG CAP.ER.24H PO SCH (08:24)
[2019-04-30] MEDS: LISINOPRIL 5 MG TAB PO SCH (08:24)
--- NOTE | 2019-04-30 10:22 | XR ---
EXAMINATION TYPE: XR chest 1V portable DATE OF EXAM: 04/30/2019 COMPARISON: 04/29/2019 INDICATION: Short of breath TECHNIQUE: Single frontal view of the chest is obtained. FINDINGS: The heart size is normal. The pulmonary vasculature is normal. There is a right lower lobe infiltrate. Correlate for pneumonia. Findings may have slight improvement from comparison. Previous left lower lobe infiltrate is resolving. IMPRESSION: 1. Improving bibasilar infiltrates. Moderate residual remains at the right base. Continued follow-up is recommended
[2019-04-30] MEDS: SODIUM CHLORIDE 0.9% 1,000 ML IV SCH (12:40)
--- NOTE | 2019-04-30 12:40 | P.PN ---
Subjective Progress Note Date: 04/30/19 Principal diagnosis: This is a 79-year-old white male patient who was transferred to the intensive care unit last night on 04/28/2019 for concern of increasing dyspnea and worsening hypoxemia, patient had to be placed on 100% nonrebreather, and transferred to the ICU. Initially patient presented to the hospital on 04/27/2019 with a concern for possible sepsis, infection, patient was hypothermic on presentation, with a temp of 93.5F, he was quite weak, he was refusing to eat. Patient was receiving treatment for lower extremity cellulitis on his left foot and was on oral Bactrim. He had a recent hospitalization and was discharged home on 04/08/2019, patient had elevated LFTs during that admission and underwent biopsy of the liver, was diagnosed with primary biliary cirrhosis, pancreatic pseudocyst and chronic pancreatitis. Had a recent ERCP and stenting at [facility]. His past medical history is positive for multiple comorbidities including diabetes mellitus, hypertension, hyperlipidemia, previous myocardial infarction, history of developmental delay, history of CAD with stenting, and a remote history of nicotine dependence. Chest x-ray was completed in the emergency department on 04/27/2019 showing bilateral lower lobe infiltrates and small bilateral pleural effusions, on a background of COPD with superimposed venous congestion. Admission lab work showed a white blood cell count of 3.1, hemoglobin of 8.5, platelet count of 105, serum sodium of 143, potassium is 5.6, chloride is 1:15, CO2 is 21, BUN of 34, creatinine is 1.72, plasma lactic acid was 1.4, AST and ALT total bili were within normal limits, with alk phos was 291, which was significantly improved from previous hospitalization. ProBNP on admission was 7120, troponin was negative, urinalysis showed 4+ glucose but no evidence of infection. EKG showed sinus rhythm with a prolonged QT, of 452, QTC of 488 on admission. Echocardiogram was completed, showing mildly impaired LVEF of 45-50%, mild mitral and mild tricuspid regurgitation, mild pulmonary hypertension of 36 mmHg, no pericardial effusion. Last night patient developed increasing respiratory difficulty, chest x-ray was obtained showing pulmonary congestion increase, bilateral lower lobe pulmonary infiltrates with a symmetric pattern, worsening pulmonary edema was suspected, patient received additional doses of IV Lasix in addition to oral Lasix. He was started on IV Zosyn. This morning he is being seen in the intensive care unit, he diuresed after the Lasix, he is an active 31 00 fluid balance over the last 24 hours, his been afebrile, his oxygenation has improved, his pulse ox is 91% on 2 L, he denies any respiratory difficulty, denies any chest pain. No cough or hemoptysis. Lung sounds reveal some bilateral lower lobe crackles, no significant wheezing or rhonchi. Remains nothing by mouth, awaiting evaluation by speech therapy, blood and urine cultures have been negative. On today's evaluation of 2018 the patient is stable. The patient is able to swallow well. The patient is on oxygen at 2 L with a pulse ox of 97%. Chest x- ray from today shows improvement in the bibasilar pulmonary infiltrates. No further bouts of aspiration for now. Hemodynamically stable. No cough or sputum production. No hemoptysis. He is white cell count is at 2.9 and the pa tient shows signs of pancytopenia with a hemoglobin of 7 and a platelet count of 62. Going back to the records, the patient has chronic issues with hematologic profile with a normal iron level and normal vitamin B12 and folate. I suspect mild dysplasia on this patient. He also suffers from chronic kidney disease. Creatinine stable at 1.8. Lactic acid level is down to 1.7. Objective - Vital Signs Vital signs: Vital Signs Temp 97.7 F 04/30/19 08:00 Pulse 51 L 04/30/19 11:54 Resp 10 L 04/30/19 09:00 BP 101/58 04/30/19 08:00 Pulse Ox 97 04/30/19 09:00 Intake & Output 04/29/19 04/30/19 04/30/19 18:59 06:59 18:59 Intake Total 545 930 Output Total 2515 1190 Balance -1969 - Weight 63 kg Intake: IV 425 200 .9-10ml/hr 225 Piperacillin-Tazobactam 3 200 200 .375 gm In Sodium Chloride 0.9% 100 ml @ 25 mls/hr IVPB Q8HR [facility]AR Rx# :[id number] Intake, IV Titration 630 Amount Sodium Chloride 0.9% 1, 630 000 ml @ 75 mls/hr IV . [id number] SCAR Rx#:[id number] Oral 120 100 Output: Urine 2515 1190 Other: Voiding Method Indwelling Catheter Indwelling Catheter Indwelling Catheter # Bowel Movements 1 - Exam GENERAL EXAM: Alert, pleasant, 79-year-old white male, currently on 2 L of oxygen with a pulse ox of 91% comfortable in no apparent distress. HEAD: Normocephalic/atraumatic. EYES: Normal reaction of pupils, equal size. Conjunctiva pink, sclera white. NOSE: Clear with pink turbinates. THROAT: No erythema or exudates. NECK: No masses, no JVD, no thyroid enlargement, no adenopathy. CHEST: No chest wall deformity. Symmetrical expansion. LUNGS: Equal air entry with bilateral lower lobe crackles over posterior lower bases CVS: Regular rate and rhythm, normal S1 and S2, no gallops, no murmurs, no rubs ABDOMEN: Soft, nontender. No hepatosplenomegaly, normal bowel sounds, no guarding or rigidity. EXTREMITIES: No clubbing, no edema, no cyanosis, 2+ pulses and upper and lower extremities. MUSCULOSKELETAL: Muscle strength and tone normal. SPINE: No scoliosis or deformity SKIN: No rashes CENTRAL NERVOUS SYSTEM: Alert and oriented -3. No focal deficits, tone is normal in all 4 extremities. PSYCHIATRIC: Alert and oriented -3. Appropriate affect. Intact judgment and insight. - Labs CBC & Chem 7: 04/30/19 04:40 04/30/19 04:40 Labs: Abnormal Lab Results - Last 24 Hours (Table) 04/29/19 04/29/19 04/30/19 Range/Units 20:16 23:52 04:40 WBC 2.9 L (3.8-10.6) k/uL RBC 1.98 L (4.30-5.90) m/uL Hgb 7.0 L (13.0-17.5) gm/dL Hct 21.9 L (39.0-53.0) % MCV 110.8 H D (80.0-100.0) fL MCH 35.2 H (25.0-35.0) pg RDW 18.0 H (11.5-15.5) % Plt Count 62 L (150-450) k/uL Lymphocytes # 0.6 L (1.0-4.8) k/uL Macrocytosis Marked A BUN (9-20) mg/dL Creatinine (0.66-1.25) mg/dL Glucose (74-99) mg/dL POC Glucose (mg/dL) 347 H 69 L (75-99) mg/dL 04/30/19 Range/Units 04:40 WBC (3.8-10.6) k/uL RBC (4.30-5.90) m/uL Hgb (13.0-17.5) gm/dL Hct (39.0-53.0) % MCV (80.0-100.0) fL MCH (25.0-35.0) pg RDW (11.5-15.5) % Plt Count (150-450) k/uL Lymphocytes # (1.0-4.8) k/uL Macrocytosis BUN 34 H (9-20) mg/dL Creatinine 1.83 H (0.66-1.25) mg/dL Glucose 60 L (74-99) mg/dL POC Glucose (mg/dL) (75-99) mg/dL Microbiology - Last 24 Hours (Table) 04/27/19 17:24 Urine Culture - Final Urine,Catheterized 04/27/19 12:31 Blood Culture - Preliminary Blood No Growth after 48 hours Assessment and Plan Assessment: #1. Acute hypoxemic respiratory failure multifactorial, likely related to aspiration pneumonia versus chemical pneumonia post aspiration. Clinically improving and the patient is currently on 2 L of oxygen by nasal cannula. Pulmonary infiltrates in lung bases improve on today's chest x-ray. No further bouts of aspiration. #2. Pancytopenia, chronic, suspect myelodysplasia #3. Recent hospitalization for weakness, lower extremity edema, anasarca, acute renal failure and elevated LFTs. #4. Recent ERCP, and biliary stent placement at [facility] #5. Chronic kidney disease, stage III #6. Chronic pancreatitis with a pancreatic pseudocyst #7. Cognitive delay, patient is a resident of a snf #8. Type 2 diabetes mellitus #9. Hypertension #10. Mild lactic acidosis, of 2.3, possibly related to infectious etiology, improved with IV hydration Plan Aspiration precautions. His continued IV Zosyn and put the patient on oral Augmentin. Rest of the medication were all reviewed. Hematologic profile was noted. This is probably related to myelodysplasia. We'll consult drill doctor later stage. For now his condition is stable and he came the chest or back to medical surgical floor.
[2019-04-30] MEDS ORDERED: SODIUM CHLORIDE 0.9% 1,000 ML IV SCH (12:45)
--- NOTE | 2019-04-30 13:24 | PN ---
PROGRESS NOTE This patient was admitted with possible cellulitis and congestive cardiac failure. Patient developed acute respiratory distress the other day secondary to heart failure. He has improved. He is lying comfortably in the bed without any shortness of breath. Chest x-ray shows improvement in the failure. Heart rate is 50 per minute. Blood pressure is 101/58 mmHg. First and second heart sounds are heard. Lungs reveal a few basal rales. Patient's hemoglobin is 7 g, white count is 2900. ASSESSMENT AND PLAN: Congestive heart failure are improving. Low hemoglobin and pancytopenia, possible myelodysplastic syndrome. Discussed with the family members. They are considering possible palliative care. Continue the supportive care. MMODL / IJN: [id number] /
[2019-04-30] MEDS: NYSTATIN 100,000 UNIT/GM POWD 15 GM TOPICAL SCH ×2 (16:38→21:03)
[2019-04-30 17:05] LABS: Glucose,Whole Blood 198 mg/dL (75-99)
--- NOTE | 2019-04-30 20:13 | PN ---
PROGRESS NOTE DATE OF SERVICE: 04/30/2019. This 79-year-old gentleman who was admitted with acute bilateral leg cellulitis is being closely monitored. Patient also had acute hypoxic respiratory failure with possibly CHF, COPD exacerbation. Aspiration is also considered. Most recent chest x- ray done today noted was personally reviewed by me which showed bilateral lesions, right more than the left. Patient being closely monitored. Patient's family is opting for palliative treatment also. PAST MEDICAL HISTORY: Reviewed. REVIEW OF SYSTEMS: CARDIOVASCULAR: No angina or palpitations. RESPIRATIONS: Occasional cough. GI as mentioned earlier. : As mentioned earlier. CENTRAL NERVOUS SYSTEM: No focal deficits. CURRENT MEDICATIONS: Reviewed and include: 1. Tylenol 650 q.6h p.r.n. 2. DuoNeb q.i.d. and p.r.n. 3. Augmentin 875 mg p.o. b.i.d. 4. Lipitor 40 mg p.o. daily. 5. Rocaltrol 2.5 mg every 48 hours. 6. Vitamin D3. 8. Depakote ER. 9. Iron sulfate. 10.Lasix. 11.NovoLog. 12.Synthroid. 13.Zestril. 14.Magnesium. 15.Protonix. 16.MiraLAX. 17.Flomax. 18.Flomax. PHYSICAL EXAM: Patient is alert, oriented x 2. Pulse 61. Blood pressure 119/70. Respirations 12, temperature is normal. Pulse ox 100 percent on 1.5 L. HEENT: Conjunctivae normal. NECK: No jugular venous distention. CARDIOVASCULAR: S1, S2 muffled. RESPIRATIONS: Breath sounds diminished in the bases. Bilateral scattered rhonchi and crackles. ABDOMEN: Soft, nontender. LEGS are no edema. No swelling. CENTRAL NERVOUS SYSTEM: No focal deficits. LAB STUDIES: WBC 2.9. Hemoglobin 7, platelets 62. ASSESSMENT: 1. Bilateral leg swelling and cellulitis with failure of outpatient treatment. 2. Acute hypoxic respiratory failure, multifactorial, possibly related to congestive heart failure acute exacerbation with acute on chronic systolic dysfunction. 3. Possible aspiration pneumonia, right. 4. Diabetes mellitus type 2 with hypoglycemia, uncontrolled. 5. Increased creatinine with chronic kidney disease stage III. 6. Hyperkalemia, mild. 7. Mild pancytopenia of undetermined etiology. 8. Elevated alkaline phosphatase. 9. Recent liver biopsy, nonconclusive, pending secondary consultation rule out primary biliary cirrhosis, chronic cholestatic changes in the initial report for the liver biopsy. 10.Hypertension. 11.Hyperlipidemia. 12.History of myocardial infarction. 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 14.History of mentally handicapped. 15.History of coronary artery disease/ stent. 16.History of bladder tumor. 17.History of cataracts. 18.Remote history of nicotine dependence. 19.FULL CODE. RECOMMENDATIONS AND DISCUSSION: In this 79-year-old gentleman who presented with multiple medical issues, at this time, continue the current medications, management and symptomatic treatment. Otherwise, at this time, repeat labs. Prognosis guarded because of multiple complex medical issues. Otherwise, continue rest of medications. As mentioned earlier, I had a detailed discussion with the family and the family is opting for palliative care at this time. Continue to monitor. Further recommendations to follow. Prognosis guarded. See orders for details. MMODL / IJN: [id number] / MTDD
[2019-04-30 20:31] LABS: Glucose,Whole Blood 149 mg/dL (75-99)
[2019-04-30] MEDS: ATORVASTATIN 40 MG TAB PO SCH (21:02)
[2019-04-30 21:10] LABS: Glucose,Whole Blood 134 mg/dL (75-99)
[2019-04-30] MEDS: AMOXIC-POT CLAV 875-125MG 1 EACH TAB PO SCH (22:43)
[2019-05-01 05:22] LABS: Anisocytosis Slight; HCT 22.1 % (39.0-53.0); Hypochromasia Marked; MCH 35.2 pg (25.0-35.0); MCHC 31.6 g/dL (31.0-37.0); MCV 111.1 fL (80.0-100.0); Mean Platelet Volume 8.8; Poikilocytosis Slight; RBC 1.99 m/uL (4.30-5.90); RDW 17.5 % (11.5-15.5)
[2019-05-01 05:35] LABS: Calcium 8.1 mg/dL (8.4-10.2); Potassium 4.3 mmol/L (3.5-5.1)
[2019-05-01 05:40] LABS: Macrocytosis Marked; Platelet Count 76 k/uL (150-450)
[2019-05-01] MEDS: INSULIN ASPART (NovoLOG) 100 UNIT/ML VIAL SQ SCH ×4 (06:39→21:16)
[2019-05-01] MEDS: LEVOTHYROXINE 50 MCG TAB PO SCH (06:41)
[2019-05-01] MEDS: FUROSEMIDE 10 MG/ML 4 ML VIAL IV SCH (06:41)
[2019-05-01 06:48] LABS: Glucose,Whole Blood 117 mg/dL (75-99)
[2019-05-01] MEDS ORDERED: PANTOPRAZOLE SODIUM 40 MG GRANULE PKT PO SCH (07:30)
--- NOTE | 2019-05-01 07:30 | XR ---
EXAMINATION TYPE: XR chest 1V portable DATE OF EXAM: 05/01/2019 COMPARISON: 04/30/2019 HISTORY: Shortness of breath TECHNIQUE: Single frontal view of the chest is obtained. FINDINGS: There is near complete resolution of the previously seen right perihilar opacity however t here is worsening of the left perihilar opacity with air bronchograms. Small left pleural effusion gaxiola s developed. Cardiomediastinal silhouette is mildly enlarged. Osseous structures appear grossly intac t. IMPRESSION: Near complete resolution of the right perihilar airspace disease however new left perihi lar airspace disease has developed that is confluent extending into the retrocardiac airspace with th e small layering left pleural effusion. Given the short-term change confluent edema and atelectasis a re suspected although pneumonia is possible in the proper clinical setting.
[2019-05-01] MEDS: IPRATROPIUM-ALBUTEROL 3 ML NEB INHALATION SCH ×4 (07:38→20:53)
[2019-05-01] MEDS: CHOLECALCIFEROL 1,000 UNIT TAB PO SCH (09:29)
[2019-05-01] MEDS: FERROUS SULFATE 325 MG TAB PO SCH ×2 (09:29→21:16)
[2019-05-01] MEDS: FUROSEMIDE 40 MG TAB PO SCH (09:29)
[2019-05-01] MEDS: LISINOPRIL 5 MG TAB PO SCH (09:29)
[2019-05-01] MEDS: CYANOCOBALAMIN 500 MCG TAB PO SCH (09:29)
[2019-05-01] MEDS: DIVALPROEX ER 500 MG TAB.ER.24H PO SCH (09:29)
[2019-05-01] MEDS: HEPARIN SODIUM,PORCINE 5,000 UNIT/ML 1 ML VIAL SQ SCH ×2 (09:30→17:12)
[2019-05-01] MEDS: TAMSULOSIN 0.4 MG CAP.ER.24H PO SCH (09:30)
[2019-05-01] MEDS: AMOXIC-POT CLAV 875-125MG 1 EACH TAB PO SCH (09:30)
[2019-05-01] MEDS: NYSTATIN 100,000 UNIT/GM POWD 15 GM TOPICAL SCH ×2 (09:50→21:17)
--- NOTE | 2019-05-01 11:32 | P.PN ---
Subjective Progress Note Date: 05/01/19 Principal diagnosis: This is a 79-year-old white male patient who was transferred to the intensive care unit last night on 04/28/2019 for concern of increasing dyspnea and worsening hypoxemia, patient had to be placed on 100% nonrebreather, and transferred to the ICU. Initially patient presented to the hospital on 04/27/2019 with a concern for possible sepsis, infection, patient was hypothermic on presentation, with a temp of 93.5F, he was quite weak, he was refusing to eat. Patient was receiving treatment for lower extremity cellulitis on his left foot and was on oral Bactrim. He had a recent hospitalization and was discharged home on 04/08/2019, patient had elevated LFTs during that admission and underwent biopsy of the liver, was diagnosed with primary biliary cirrhosis, pancreatic pseudocyst and chronic pancreatitis. Had a recent ERCP and stenting at [facility]. His past medical history is positive for multiple comorbidities including diabetes mellitus, hypertension, hyperlipidemia, previous myocardial infarction, history of developmental delay, history of CAD with stenting, and a remote history of nicotine dependence. Chest x-ray was completed in the emergency department on 04/27/2019 showing bilateral lower lobe infiltrates and small bilateral pleural effusions, on a background of COPD with superimposed venous congestion. Admission lab work showed a white blood cell count of 3.1, hemoglobin of 8.5, platelet count of 105, serum sodium of 143, potassium is 5.6, chloride is 1:15, CO2 is 21, BUN of 34, creatinine is 1.72, plasma lactic acid was 1.4, AST and ALT total bili were within normal limits, with alk phos was 291, which was significantly improved from previous hospitalization. ProBNP on admission was 7120, troponin was negative, urinalysis showed 4+ glucose but no evidence of infection. EKG showed sinus rhythm with a prolonged QT, of 452, QTC of 488 on admission. Echocardiogram was completed, showing mildly impaired LVEF of 45-50%, mild mitral and mild tricuspid regurgitation, mild pulmonary hypertension of 36 mmHg, no pericardial effusion. Last night patient developed increasing respiratory difficulty, chest x-ray was obtained showing pulmonary congestion increase, bilateral lower lobe pulmonary infiltrates with a symmetric pattern, worsening pulmonary edema was suspected, patient received additional doses of IV Lasix in addition to oral Lasix. He was started on IV Zosyn. This morning he is being seen in the intensive care unit, he diuresed after the Lasix, he is an active 31 00 fluid balance over the last 24 hours, his been afebrile, his oxygenation has improved, his pulse ox is 91% on 2 L, he denies any respiratory difficulty, denies any chest pain. No cough or hemoptysis. Lung sounds reveal some bilateral lower lobe crackles, no significant wheezing or rhonchi. Remains nothing by mouth, awaiting evaluation by speech therapy, blood and urine cultures have been negative. On today's evaluation of 2018 the patient is stable. The patient is able to swallow well. The patient is on oxygen at 2 L with a pulse ox of 97%. Chest x- ray from today shows improvement in the bibasilar pulmonary infiltrates. No further bouts of aspiration for now. Hemodynamically stable. No cough or sputum production. No hemoptysis. He is white cell count is at 2.9 and the pa tient shows signs of pancytopenia with a hemoglobin of 7 and a platelet count of 62. Going back to the records, the patient has chronic issues with hematologic profile with a normal iron level and normal vitamin B12 and folate. I suspect mild dysplasia on this patient. He also suffers from chronic kidney disease. Creatinine stable at 1.8. Lactic acid level is down to 1.7. On 05/01/2019, the patient is doing extremely well and the patient is currently on room air oxygen. The chest x-ray is showing a left lower lobe consolidation. This is quite surprising knowing if clinically the patient is doing better and the patient is currently on room air oxygen. Suspect episodic aspiration alth ough this has not been noted clinically nor while having his swallow evaluation. The patient is going on with his feeds. He is on oral Augmentin. He has pancytopenia probably related to underlying myelodysplasia. No other new complaints otherwise for now. He is comfortable. No fever. No chills. No night sweats. No other significant events overnight. Objective - Vital Signs Vital signs: Vital Signs Temp 97.8 F 05/01/19 08:00 Pulse 46 L 05/01/19 10:00 Resp 10 L 05/01/19 10:00 BP 125/57 05/01/19 08:00 Pulse Ox 95 05/01/19 10:00 Intake & Output 04/30/19 05/01/19 05/01/19 18:59 06:59 18:59 Intake Total 375 720 347 Output Total 175 1150 Balance 200 -430 347 Weight 62 kg Intake: IV 0 Piperacillin-Tazobactam 3 0 .375 gm In Sodium Chloride 0.9% 100 ml @ 25 mls/hr IVPB Q8HR [facility]AR Rx# :[id number] Intake, IV Titration 255 Amount Piperacillin-Tazobactam 3 100 .375 gm In Sodium Chloride 0.9% 100 ml @ 25 mls/hr IVPB Q8HR [facility]AR Rx# :[id number] Sodium Chloride 0.9% 1, 80 000 ml @ 20 mls/hr IV . Q24H [facility]AR Rx#:[id number] Sodium Chloride 0.9% 1, 75 000 ml @ 75 mls/hr IV . [id number] [facility]AR Rx#:[id number] Oral 120 720 347 Output: Urine 175 1150 Other: Voiding Method Indwelling Catheter Indwelling Catheter Indwelling Catheter # Bowel Movements 1 1 2 - Exam GENERAL EXAM: Alert, pleasant, 79-year-old white male, currently on 2 L of oxygen with a pulse ox of 91% comfortable in no apparent distress. HEAD: Normocephalic/atraumatic. EYES: Normal reaction of pupils, equal size. Conjunctiva pink, sclera white. NOSE: Clear with pink turbinates. THROAT: No erythema or exudates. NECK: No masses, no JVD, no thyroid enlargement, no adenopathy. CHEST: No chest wall deformity. Symmetrical expansion. LUNGS: Equal air entry with bilateral lower lobe crackles over posterior lower bases CVS: Regular rate and rhythm, normal S1 and S2, no gallops, no murmurs, no rubs ABDOMEN: Soft, nontender. No hepatosplenomegaly, normal bowel sounds, no guarding or rigidity. EXTREMITIES: No clubbing, no edema, no cyanosis, 2+ pulses and upper and lower extremities. MUSCULOSKELETAL: Muscle strength and tone normal. SPINE: No scoliosis or deformity SKIN: No rashes CENTRAL NERVOUS SYSTEM: Alert and oriented -3. No focal deficits, tone is normal in all 4 extremities. PSYCHIATRIC: Alert and oriented -3. Appropriate affect. Intact judgment and insight. - Labs CBC & Chem 7: 05/01/19 04:47 05/01/19 04:47 Labs: Abnormal Lab Results - Last 24 Hours (Table) 0904/30/19 04/30/19 Range/Units 16:52 20:20 20:58 WBC (3.8-10.6) k/uL RBC (4.30-5.90) m/uL Hgb (13.0-17.5) gm/dL Hct (39.0-53.0) % MCV (80.0-100.0) fL MCH (25.0-35.0) pg RDW (11.5-15.5) % Plt Count (150-450) k/uL Macrocytosis Carbon Dioxide (22-30) mmol/L BUN (9-20) mg/dL Creatinine (0.66-1.25) mg/dL POC Glucose (mg/dL) 198 H 149 H 134 H (75-99) mg/dL Calcium (8.4-10.2) mg/dL 05/01/19 05/01/19 05/01/19 Range/Units 04:47 04:47 06:37 WBC 2.0 L (3.8-10.6) k/uL RBC 1.99 L (4.30-5.90) m/uL Hgb 7.0 L (13.0-17.5) gm/dL Hct 22.1 L (39.0-53.0) % MCV 111.1 H (80.0-100.0) fL MCH 35.2 H (25.0-35.0) pg RDW 17.5 H (11.5-15.5) % Plt Count 76 L (150-450) k/uL Macrocytosis Marked A Carbon Dioxide 31 H (22-30) mmol/L BUN 33 H (9-20) mg/dL Creatinine 1.83 H (0.66-1.25) mg/dL POC Glucose (mg/dL) 117 H (75-99) mg/dL Calcium 8.1 L (8.4-10.2) mg/dL Microbiology - Last 24 Hours (Table) 04/27/19 12:31 Blood Culture - Preliminary Blood No Growth after 72 hours Assessment and Plan Assessment: #1. Acute hypoxemic respiratory failure multifactorial, likely related to aspiration pneumonia versus chemical pneumonia post aspiration. Likely improved and the patient is currently on room air oxygen. On today's chest x-ray there is a left lower lobe consolidation of these to be further monitored. Consider effusion. Consider episodic aspiration. #2. Pancytopenia, chronic, suspect myelodysplasia #3. Recent hospitalization for weakness, lower extremity edema, anasarca, acute renal failure and elevated LFTs. #4. Recent ERCP, and biliary stent placement at [facility] #5. Chronic kidney disease, stage III #6. Chronic pancreatitis with a pancreatic pseudocyst #7. Cognitive delay, patient is a resident of a half-way #8. Type 2 diabetes mellitus #9. Hypertension #10. Mild lactic acidosis, of 2.3, possibly related to infectious etiology, improved with IV hydration Plan Aspiration precautions. COPD mild temp. Aspiration precautions. IV fluids to KVO. transfer this patient to a medical floor.
[2019-05-01 11:44] LABS: Glucose,Whole Blood 380 mg/dL (75-99)
[2019-05-01 11:54] LABS: Glucose,Whole Blood 388 mg/dL (75-99)
[2019-05-01 17:02] LABS: Glucose,Whole Blood 273 mg/dL (75-99)
[2019-05-01 20:16] LABS: Glucose,Whole Blood 178 mg/dL (75-99)
[2019-05-01] MEDS: AMOXIC-POT CLAV 500-125 MG 1 EACH TAB PO SCH (21:16)
[2019-05-01] MEDS: ATORVASTATIN 40 MG TAB PO SCH (21:16)
[2019-05-01] MEDS: CALCITRIOL 0.25 MCG CAP PO SCH (21:16)
--- NOTE | 2019-05-01 23:26 | PN ---
PROGRESS NOTE DATE OF SERVICE: 05/01/2019. This 79 -year-old gentleman admitted with bilateral leg cellulitis is being closely monitored. The patient also had possibly aspiration pneumonia also. Most recent chest x-ray done today which was reviewed personally by me showed significant shadowing. No chest pain. No palpitations. PAST MEDICAL HISTORY: Reviewed. REVIEW OF SYSTEMS: CARDIOVASCULAR: As mentioned earlier. RESPIRATIONS: As mentioned earlier. GI: No nausea or vomiting. : No dysuria. CENTRAL NERVOUS SYSTEM: No numbness or weakness. CURRENT MEDICATIONS: Reviewed and include: 1. Tylenol 650 q.6h p.r.n. 2. DuoNeb q.i.d. and p.r.n. 3. Augmentin b.i.d. 4. Lipitor 40 mg q.h.s. 5. Rocaltrol. 6. Vitamin B12. 7. Depakote ER. 8. Iron sulfate. 9. Lasix 80 mg p.o. daily. 10.NovoLog. 11.Synthroid. 12.Zestril. 13.Magnesium oxide. 14.Protonix. 15.MiraLAX. 16.Senokot. 17.Flomax. PHYSICAL EXAM: Patient is alert, oriented x2. Pulse 61. Blood pressure 106/64, respiration 14, temperature 97.7, pulse ox 98% on room air. HEENT: Conjunctivae normal. NECK: No JVD. CARDIOVASCULAR SYSTEM: S1, S2 muffled. RESPIRATORY SYSTEM: Breath sounds diminished at the bases. Scattered rhonchi and crackles. ABDOMEN: Soft, nontender. LEGS are no edema, no swelling. CENTRAL NERVOUS SYSTEM: No focal deficits. LABS: WBC 2, hemoglobin 7, platelets 76 and creatinine is 1.83. ASSESSMENT: 1. Bilateral leg swelling and cellulitis with failure of outpatient treatment. 2. Acute hypoxic respiratory failure, multifactorial, possibly related to congestive heart failure acute exacerbation as well as acute on chronic systolic dysfunction. 3. Possible aspiration pneumonia, bilateral, left more than the right. 4. Diabetes mellitus type 2, hypoglycemia, uncontrolled. 5. Increased creatinine with chronic kidney disease stage III. 6. Hyperkalemia, mild. 7. Mild pancytopenia of undetermined etiology. 8. Elevated alkaline phosphatase. 9. Recent liver biopsy, nonconclusive, pending secondary consultations, rule out primary biliary cirrhosis showing chronic cholestatic changes in the initial report of the liver biopsy. 10.Hypertension. 11.Hyperlipidemia. 12.History of myocardial infarction. 13.Antimitochondrial antibody positive previously, recently. 14.History of mentally handicapped. 15.History of coronary artery disease/ stent. 16.History of bladder tumor. 17.History of cataracts. 18.Remote history of nicotine dependence. 19.FULL CODE. RECOMMENDATIONS AND DISCUSSION: I recommend to continue current medications, management and symptomatic treatment. Otherwise, at this time, continue the antibiotics. Continue the bronchodilators. The family is opting for palliative care at this time at discharge and we will work with block and case maker and medical social consultant to arrange palliative care as an outpatient in the next 24-48 hours. Further recommendations to follow. MMODL / IJN: [id number] /
[2019-05-02] MEDS: HEPARIN SODIUM,PORCINE 5,000 UNIT/ML 1 ML VIAL SQ SCH ×3 (00:02→18:59)
[2019-05-02] MEDS: LEVOTHYROXINE 50 MCG TAB PO SCH (05:23)
[2019-05-02 07:19] LABS: Glucose,Whole Blood 85 mg/dL (75-99)
[2019-05-02] MEDS: INSULIN ASPART (NovoLOG) 100 UNIT/ML VIAL SQ SCH ×5 (07:47→20:48)
[2019-05-02] MEDS: SODIUM CHLORIDE 0.9% 1,000 ML IV SCH (07:49)
[2019-05-02] MEDS: IPRATROPIUM-ALBUTEROL 3 ML NEB INHALATION SCH ×4 (09:17→19:58)
[2019-05-02] MEDS: AMOXIC-POT CLAV 500-125 MG 1 EACH TAB PO SCH ×2 (11:47→20:49)
[2019-05-02] MEDS: CYANOCOBALAMIN 500 MCG TAB PO SCH (11:52)
[2019-05-02] MEDS: FERROUS SULFATE 325 MG TAB PO SCH ×2 (11:52→20:48)
[2019-05-02] MEDS: FUROSEMIDE 40 MG TAB PO SCH (11:52)
[2019-05-02] MEDS: TAMSULOSIN 0.4 MG CAP.ER.24H PO SCH (11:53)
[2019-05-02] MEDS: LISINOPRIL 5 MG TAB PO SCH (11:53)
[2019-05-02] MEDS: PANTOPRAZOLE 40 MG TABLET PO SCH (11:53)
[2019-05-02] MEDS: DIVALPROEX ER 500 MG TAB.ER.24H PO SCH (11:53)
[2019-05-02] MEDS: CHOLECALCIFEROL 1,000 UNIT TAB PO SCH (11:53)
[2019-05-02] MEDS: NYSTATIN 100,000 UNIT/GM POWD 15 GM TOPICAL SCH ×2 (11:55→20:49)
[2019-05-02 12:04] LABS: Glucose,Whole Blood 221 mg/dL (75-99)
--- NOTE | 2019-05-02 12:11 | P.PN ---
Subjective Progress Note Date: 05/02/19 Principal diagnosis: Acute hypoxic rest or a failure, multifactorial, related to aspiration pneumonia versus chemical pneumonia post aspiration. Improved This is a 79-year-old white male patient who was transferred to the intensive care unit last night on 04/28/2019 for concern of increasing dyspnea and worsening hypoxemia, patient had to be placed on 100% nonrebreather, and t ransferred to the ICU. Initially patient presented to the hospital on 04/27/2019 with a concern for possible sepsis, infection, patient was hypothermic on presentation, with a temp of 93.5F, he was quite weak, he was refusing to eat. Patient was receiving treatment for lower extremity cellulitis on his left foot and was on oral Bactrim. He had a recent hospitalization and was discharged home on 04/08/2019, patient had elevated LFTs during that admission and underwent biopsy of the liver, was diagnosed with primary biliary cirrhosis, pancreatic pseudocyst and chronic pancreatitis. Had a recent ERCP and stenting at [facility]. His past medical history is positive for multiple comorbidities including diabetes mellitus, hypertension, hyperlipidemia, previous myocardial infarction, history of developmental delay, history of CAD with stenting, and a remote history of nicotine dependence. Chest x-ray was completed in the emergency department on 04/27/2019 showing bilateral lower lobe infiltrates and small bilateral pleural effusions, on a background of COPD with superimposed venous congestion. Admission lab work showed a white blood cell count of 3.1, hemoglobin of 8.5, platelet count of 105, serum sodium of 143, potassium is 5.6, chloride is 1:15, CO2 is 21, BUN of 34, creatinine is 1.72, plasma lactic acid was 1.4, AST and ALT total bili were within normal limits, with alk phos was 291, which was significantly improved from previous hospitalization. ProBNP on admission was 7120, troponin was negative, urinalysis showed 4+ glucose but no evidence of infection. EKG showed sinus rhythm with a prolonged QT, of 452, QTC of 488 on admission. Echocardiogram was completed, showing mildly impaired LVEF of 45-50%, mild mitral and mild tricuspid regurgitation, mild pulmonary hypertension of 36 mmHg, no pericardial effusion. Last night patient developed increasing respiratory difficulty, chest x-ray was obtained showing pulmonary congestion increase, bilateral lower lobe pulmonary infiltrates with a symmetric pattern, worsening pulmonary edema was suspected, patient received additional doses of IV Lasix in addition to oral Lasix. He was started on IV Zosyn. This morning he is being seen in the intensive care unit, he diuresed after the Lasix, he is an active 3100 fluid balance over the last 24 hours, his been afebrile, his oxygenation has improved, his pulse ox is 91% on 2 L, he denies any respiratory difficulty, denies any chest pain. No cough or hemoptysis. Lung sounds reveal some bilateral lower lobe crackles, no significant wheezing or rhonchi. Remains nothing by mouth, awaiting evaluation by speech therapy, blood and urine cultures have been negative. On today's evaluation of 2018 the patient is stable. The patient is able to swallow well. The patient is on oxygen at 2 L with a pulse ox of 97%. Chest x- ray from today shows improvement in the bibasilar pulmonary infiltrates. No further bouts of aspiration for now. Hemodynamically stable. No cough or sputum production. No hemoptysis. He is white cell count is at 2.9 and the patient shows signs of pancytopenia with a hemoglobin of 7 and a platelet count of 62. Going back to the records, the patient has chronic issues with hematologic profile with a normal iron level and normal vitamin B12 and folate. I suspect mild dysplasia on this patient. He also suffers from chronic kidney disease. Creatinine stable at 1.8. Lactic acid level is down to 1.7. On 05/01/2019, the patient is doing extremely well and the patient is currently on room air oxygen. The chest x-ray is showing a left lower lobe consolidation. This is quite surprising knowing if clinically the patient is doing better and the patient is currently on room air oxygen. Suspect episodic aspiration although this has not been noted clinically nor while having his swallow evaluation. The patient is going on with his feeds. He is on oral Augmentin. He has pancytopenia probably related to underlying myelodysplasia. No other new complaints otherwise for now. He is comfortable. No fever. No chills. No night sweats. No other significant events overnight. On 05/02/2019 patient seen in follow-up on medical surgical floor. He is awake and alert, in no acute distress, he is on room air, denies any shortness of breath, vital signs are stable, no fever or chills, room air pulse ox is 94%, lungs are positive for a few minimal crackles at bilateral bases, no rhonchi, no wheezing, no new labs today. There have been no fever or chills. Blood and urine cultures are negative, no cough or congestion. No acute events overnight, yesterday's chest x-ray showed near complete resolution of the right perihilar airspace disease however there was a new perihilar airspace disease extending i nto the retrocardiac airspace with a small left pleural effusion. However clinically patient has remained stable, he did pass his swallow evaluation, however patient could have episodes of episodic aspiration. Antibiotic coverage in the form of Augmentin. Increase activity as tolerated, anticipate discharge back to the nursing home today Objective - Vital Signs Vital signs: Vital Signs Temp 97.6 F 05/01/19 19:30 Pulse 56 L 05/02/19 11:57 Resp 18 05/02/19 00:10 BP 103/50 05/01/19 19:30 Pulse Ox 94 L 05/01/19 19:30 Intake & Output 05/01/19 05/02/19 05/02/19 18:59 06:59 18:59 Intake Total 467 Output Total 1000 175 Balance -533 -175 Intake: Oral 467 Output: Urine 1000 175 Other: Voiding Method Indwelling Catheter Indwelling Catheter # Bowel Movements 2 - Exam GENERAL EXAM: Alert, pleasant, 79-year-old white male, currently on room air with a pulse ox of 94% comfortable in no apparent distress. HEAD: Normocephalic/atraumatic. EYES: Normal reaction of pupils, equal size. Conjunctiva pink, sclera white. NOSE: Clear with pink turbinates. THROAT: No erythema or exudates. NECK: No masses, no JVD, no thyroid enlargement, no adenopathy. CHEST: No chest wall deformity. Symmetrical expansion. LUNGS: Equal air entry with bilateral lower lobe crackles over posterior lower bases CVS: Regular rate and rhythm, normal S1 and S2, no gallops, no murmurs, no rubs ABDOMEN: Soft, nontender. No hepatosplenomegaly, normal bowel sounds, no guarding or rigidity. EXTREMITIES: No clubbing, no edema, no cyanosis, 2+ pulses and upper and lower extremities. MUSCULOSKELETAL: Muscle strength and tone normal. SPINE: No scoliosis or deformity SKIN: No rashes CENTRAL NERVOUS SYSTEM: Alert and oriented -3. No focal deficits, tone is normal in all 4 extremities. PSYCHIATRIC: Alert and oriented -3. Appropriate affect. Intact judgment and insight. - Labs CBC & Chem 7: 05/01/19 04:47 05/01/19 04:47 Labs: Abnormal Lab Results - Last 24 Hours (Table) 05/01/19 05/01/19 Range/Units 16:50 20:05 POC Glucose (mg/dL) 273 H 178 H (75-99) mg/dL Microbiology - Last 24 Hours (Table) 04/27/19 12:31 Blood Culture - Preliminary Blood No Growth after 96 hours Assessment and Plan Plan: #1. Acute hypoxemic respiratory failure multifactorial, likely related to aspiration pneumonia versus chemical pneumonia post aspiration. Likely improved and the patient is currently on room air oxygen. On today's chest x-ray there is a left lower lobe consolidation of these to be further monitored. Consider effusion. Consider episodic aspiration. #2. Pancytopenia, chronic, suspect myelodysplasia #3. Recent hospitalization for weakness, lower extremity edema, anasarca, acute renal failure and elevated LFTs. #4. Recent ERCP, and biliary stent placement at [facility] #5. Chronic kidney disease, stage III #6. Chronic pancreatitis with a pancreatic pseudocyst #7. Cognitive delay, patient is a resident of a nursing home #8. Type 2 diabetes mellitus #9. Hypertension #10. Mild lactic acidosis, of 2.3, possibly related to infectious etiology, i mproved with IV hydration Plan: Patient remains clinically stable, maintain aspiration precautions, no acute events overnight, no fever or chills, no difficulty breathing, maintaining stable oxygenation on room air, increase activity as tolerated, we'll obtain a follow-up 2 view chest x-ray today. If CXR findings are improving, patient is stable for discharge back to the nursing home today and he can complete oral course of antibiotics. Follow up with Dr. Acharya in the office in 7-10 days I performed a history & physical examination of the patient and discussed their management with my nurse practitioner, Tangela Urbina. I reviewed the nurse practitioner's note and agree with the documented findings and plan of care. Lung sounds are positive for diffuse wheezes throughout the lung key. The findings and the impression was discussed with the patient. I attest to the documentation by the nurse practitioner. Time with Patient: Less than 30
--- NOTE | 2019-05-02 14:28 | XR ---
EXAMINATION TYPE: XR chest 2V DATE OF EXAM: 05/02/2019 COMPARISON: 05/01/2019 TECHNIQUE: PA and lateral views submitted. HISTORY: Cough and congestion. FINDINGS: Hyperinflation with no pneumothorax or overt congestion. Bilateral small effusions and basilar consol idation. Degenerative change of the spine. IMPRESSION: 1. COPD with bilateral lower lobe infiltrate and small effusion.
[2019-05-02 17:44] LABS: Glucose,Whole Blood 255 mg/dL (75-99)
[2019-05-02 20:30] LABS: Glucose,Whole Blood 180 mg/dL (75-99)
[2019-05-02] MEDS: ATORVASTATIN 40 MG TAB PO SCH (20:48)
--- NOTE | 2019-05-02 22:53 | P.PN ---
Subjective Progress Note Date: 05/02/19 This is a 79-year-old male who resides at [facility] with the legal guardian which is his brother. 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 Patient had a recent ERCP and stenting at [facility] with findings of chronic pancreatitis and pseudocyst biliary stricture. 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 There is very minimal portal inflammation with mild periportal fibrosis. It was thought that the alkaline phosphatase most likely secondary to vascular or cardiac compromise rather than biliary cause. Patient also has underlying history of bladder cancer with chronic Romero catheter, diabetes mellitus type 2, intellectual delay. On previous admission to this, patient was found to have Klebsiella oxytoca bacteremia and positive urinary tract infection. He was transferred to [facility] and most likely completed course of antibiotics for this. Klebsiella oxytoca sepsis susceptible to ceftriaxone. Most recently, patient has been treated at the residential for cellulitis of the left lower extremity with Bactrim and the caregivers noted yesterday that he was not eating which was unlike him. Patient had increasing weakness and lethargy. Patient presented with a temperature of 93.5, WBC 3.1, hemoglobin 8.5, platelet count 105, BUN 34 and creatinine 1.72 and potassium is 5.6. Blood sugar was 26. Patient was given an amp of D50 and he was more alert following this. There was no noted focal neurological deficits. Patient was given calcium gluconate and IV Lasix. Chest x-ray was concerning for possible pneumonia. Lactic acid was normal. Patient was admitted to the cardiac stepdown unit and seen in consultation by cardiology. At the time of this evaluation, patient is sitting up, he is complaining of feeling sleepy and states he did not sleep well last night. He can answer most questions appropriately. He did eat 100% of his breakfast this morning. He has had 2 soft brown stools. Patient has a chronic Romero catheter in place. No decubitus ulcers. \2018 Patient is admitted videoscopic swallow study performed today there is evidence of bev aspiration. Most recent chest x-ray does show some ongoing pneumonia. He was transferred to intensive care unit because of his hypotension that is improving today. The patient is modestly comfortable constipation is resolved and his had multiple soft stools. 05/02/2019 patient is improving signing some weakness but is eating supervised meals. Objective - Vital Signs Vital signs: Vital Signs Temp 98.0 F 05/02/19 20:02 Pulse 65 05/02/19 20:11 Resp 16 05/02/19 20:02 BP 144/78 05/02/19 20:02 Pulse Ox 100 05/02/19 20:02 Intake & Output 05/02/19 05/02/19 05/03/19 06:59 18:59 06:59 Output Total 175 1500 1600 Balance -175 -1500 -1600 Weight 62 kg Output: Urine 175 1500 1600 Other: Voiding Method Indwelling Catheter Indwelling Catheter # Bowel Movements 4 - Exam Gen: This is a 79-year-old male. Patient appears thin with muscle wasting to the extremities. He appears to be in no acute distress. HEENT: Head is atraumatic, normocephalic. Pupils equal, round. Sclerae is anicteric. NECK: Supple. No JVD. No lymphadenopathy. No thyromegaly. LUNGS: Diminished in the bases. No wheezes or rhonchi. No intercostal retractions. HEART: Regular rate and rhythm. Systolic murmur. ABDOMEN: Soft. Bowel sounds are present. No masses. No tenderness. Romero catheter draining akila urine. Has had fecal incontinence EXTREMITIES: No pedal edema. Dorsalis pedis +1 bilateral. Mild pretibial edema and erythema slightly worse to the left. No drainage noted. NEUROLOGICAL: Patient is awake, alert and oriented x2. No focal neuro deficits. - Labs CBC & Chem 7: 05/01/19 04:47 05/01/19 04:47 Labs: Abnormal Lab Results - Last 24 Hours (Table) 05/02/19 05/02/19 05/02/19 Range/Units 12:01 17:31 20:19 POC Glucose (mg/dL) 221 H 255 H 180 H (75-99) mg/dL Microbiology - Last 24 Hours (Table) 04/27/19 12:31 Blood Culture - Preliminary Blood No Growth after 120 hours Laboratory Results WBC 2.0 k/uL (3.8-10.6) L 05/01/19 04:47 RBC 1.99 m/uL (4.30-5.90) L 05/01/19 04:47 Hgb 7.0 gm/dL (13.0-17.5) L 05/01/19 04:47 Hct 22.1 % (39.0-53.0) L 05/01/19 04:47 MCV 111.1 fL (80.0-100.0) H 05/01/19 04:47 MCH 35.2 pg (25.0-35.0) H 05/01/19 04:47 MCHC 31.6 g/dL (31.0-37.0) 05/01/19 04:47 RDW 17.5 % (11.5-15.5) H 05/01/19 04:47 Plt Count 76 k/uL (150-450) L 05/01/19 04:47 Neutrophils % 67 % 04/30/19 04:40 Lymphocytes % 21 % 04/30/19 04:40 Monocytes % 5 % 04/30/19 04:40 Eosinophils % 3 % 04/30/19 04:40 Basophils % 1 % 04/30/19 04:40 Neutrophils # 1.9 k/uL (1.3-7.7) 04/30/19 04:40 Lymphocytes # 0.6 k/uL (1.0-4.8) L 04/30/19 04:40 Monocytes # 0.2 k/uL (0-1.0) 04/30/19 04:40 Eosinophils # 0.1 k/uL (0-0.7) 04/30/19 04:40 Basophils # 0.0 k/uL (0-0.2) 04/30/19 04:40 Manual Slide Review Performed 04/29/19 02:41 Polychromasia Present 04/29/19 02:41 Hypochromasia Marked 05/01/19 04:47 Poikilocytosis Slight 05/01/19 04:47 Poikilocytosis (manual Present 04/28/19 21:59 Anisocytosis Slight 05/01/19 04:47 Macrocytosis Marked A 05/01/19 04:47 [facility] 04/28/19 23:56 ABG pH 7.40 (7.35-7.45) 04/28/19 23:56 ABG pCO2 37 mmHg (35-45) 04/28/19 23:56 ABG pO2 91 mmHg (83-108) 04/28/19 23:56 ABG HCO3 23 mmol/L (21-25) 04/28/19 23:56 ABG Total CO2 24 mmol/L (19-24) 04/28/19 23:56 ABG O2 Saturation 96.6 % (94-97) 04/28/19 23:56 ABG Base Excess -1.7 mmol/L 04/28/19 23:56 Aston Test Yes 04/28/19 23:56 FiO2 100 % 04/28/19 23:56 Sodium 137 mmol/L (137-145) 05/01/19 04:47 Potassium 4.3 mmol/L (3.5-5.1) 05/01/19 04:47 Chloride 104 mmol/L (98-107) 05/01/19 04:47 Carbon Dioxide 31 mmol/L (22-30) H 05/01/19 04:47 Anion Gap 2 mmol/L 05/01/19 04:47 BUN 33 mg/dL (9-20) H 05/01/19 04:47 Creatinine 1.83 mg/dL (0.66-1.25) H 05/01/19 04:47 Est GFR (CKD-EPI)AfAm 40 (>60 ml/min/1.73 sqM) 05/01/19 04:47 Est GFR (CKD-EPI)NonAf 35 (>60 ml/min/1.73 sqM) 05/01/19 04:47 Glucose 93 mg/dL (74-99) 05/01/19 04:47 POC Glucose (mg/dL) 180 mg/dL (75-99) H 05/02/19 20:19 POC Glu [facility] Clinton Martinez 05/02/19 20:19 Lactic Ac Sepsis Rflx Y 04/28/19 22:30 Plasma Lactic Acid Alejandro 1.7 mmol/L (0.7-2.0) 04/29/19 01:53 Calcium 8.1 mg/dL (8.4-10.2) L 05/01/19 04:47 Phosphorus 3.9 mg/dL (2.5-4.5) 04/30/19 04:40 Magnesium 1.8 mg/dL (1.6-2.3) 04/30/19 04:40 Total Bilirubin 0.7 mg/dL (0.2-1.3) 04/27/19 12:31 AST 31 U/L (17-59) 04/27/19 12:31 ALT 28 U/L (21-72) 04/27/19 12:31 Alkaline Phosphatase 291 U/L (38-126) H 04/27/19 12:31 Troponin I <0.012 ng/mL (0.000-0.034) 04/27/19 12:30 NT-Pro-B Natriuret Pep 7120 pg/mL 04/27/19 12:31 Total Protein 5.7 g/dL (6.3-8.2) L 04/27/19 12:31 Albumin 2.9 g/dL (3.5-5.0) L 04/27/19 12:31 TSH 8.210 mIU/L (0.465-4.680) H 04/28/19 05:40 Free T4 1.31 ng/dL (0.78-2.19) 04/28/19 05:40 Urine Color Light Yellow 04/28/19 17:24 Urine Appearance Clear (Clear) 04/28/19 17:24 Urine pH 5.5 (5.0-8.0) 04/28/19 17:24 Ur Specific [place] 1.012 (1.001-1.035) 04/28/19 17:24 Urine Protein Negative (Negative) 04/28/19 17:24 Urine Glucose (UA) 4+ (Negative) H 04/28/19 17:24 Urine Ketones Negative (Negative) 04/28/19 17:24 Urine Blood Negative (Negative) 04/28/19 17:24 Urine Nitrite Negative (Negative) 04/28/19 17:24 Urine Bilirubin Negative (Negative) 04/28/19 17:24 Urine Urobilinogen <2.0 mg/dL (<2.0) 04/28/19 17:24 Ur Leukocyte Esterase Negative (Negative) 04/28/19 17:24 Microbiology 04/27/19 12:31 Blood Blood Culture - Preliminary No Growth after 120 hours 04/27/19 17:24 Urine,Catheterized Urine Culture - Final Assessment and Plan (1) CHF (congestive heart failure) Current Visit: Yes Status: Acute Code(s): I50.9 - HEART FAILURE, UNSPECIFIED SNOMED Code(s): 69860323 (2) Cognitive developmental delay Current Visit: No Status: Chronic Code(s): F81.9 - DEVELOPMENTAL DISORDER OF SCHOLASTIC SKILLS, UNSPECIFIED SNOMED Code(s): 225946000 (3) Pneumonia Narrative/Plan: 79-year-old male resides in a residential presents to Hospital with increasing weakness and lethargy. He had relative hypothermia and some ongoing pancytopenia. He was recently hospitalized which point in time he did have difficulties with Klebsiella oxytoca urinary tract infection and bacteremia. He also is having difficulties and underwent liver biopsy. No evidence of primary biliary cholangitis was found the patient continues with ongoing decline of his status. He has now admitted with evidence of infection from urinary tract antibiotic therapy with Rocephin has been initiated. Urinary catheter change has been requested. Patient has evidence of a fall and has some bruising to the bilateral pretibial areas but they are not open weeping or draining. Cultures will help guide the course of therapy especially for the time of discharge. It is possible the patient's trimethoprim sulfamethoxazole his worsened his pancytopenia and is now discontinued. Nutritional supplementation in monitoring for recovery of his bone marrow is in process. patient's status worsened. According to the ICU for acute hypoxic respiratory failure on the basis of acute congestive heart failure and likely aspiration pneumonitis. The patient has been seen by pulmonary critical care. He has been made nothing by mouth and the determination is being made as to his further feeding status. Antibiotic therapy with Zosyn continues. His pancytopenia seems to be improving. 05/02/2019 patient is having improvement. Blood cultures are negative, urine cultures are negative. Concerns to aspiration pneumonia, the antibiotic therapy with Zosyn is being utilized at this point in time. We'll likely transition to Augmentin the time of his discharge. Current Visit: Yes Status: Acute Code(s): J18.9 - PNEUMONIA, UNSPECIFIED ORGANISM SNOMED Code(s): 132929896
[2019-05-03] MEDS: HEPARIN SODIUM,PORCINE 5,000 UNIT/ML 1 ML VIAL SQ SCH ×2 (00:16→07:46)
--- NOTE | 2019-05-03 01:07 | P.PN ---
Subjective Progress Note Date: 05/02/19 Principal diagnosis: This is a 79-year-old male who was recently admitted for pain and swelling of the lower extremities, and pneumonia and is being closely monitored. Patient is currently on IV antibiotics in the form of Rocephin. Infectious disease and cardiology have been consulted. Today patient is sitting up in the bed in no acute distress. Brother and legal guardian are at the bedside. Lower extremities have improved with a decrease in the swelling and redness. Patient denies any chest pain, shortness of breath, or palpitations at this time. Patient denies any nausea or vomiting and has been tolerating diet. Patient has been afebrile. Guarded prognosis. 04/29/2019 Patient is sitting up in the chair in no acute distress. He is at the bedside. Patient is currently in the ICU as he had some worsening shortness of breath and difficulty in breathing last night and has been requiring oxygen. Per nursing staff they were unsure if he had choked on some Coca-Cola that he drank and possibly aspirated and a swallow eval was ordered and is pending at this time. Patient has not been eating on to the etiology done and would like to eat today he states. This morning he is doing much better and is currently on 2 L via nasal cannula. Pulmonary is following the patient closely. Will continue to monitor closely. Constitutional: Denies fatigue, Reports poor appetite, Reports mild weakness Ears, nose, mouth and throat: Denies dysphagia, Denies mouth pain, Denies vertigo Cardiovascular: Denies decreased exercise tolerance, Denies dyspnea on exertion, Denies lightheadedness, Denies shortness of breath, Denies syncope Respiratory: Reports cough, Denies cough with sputum, Denies dyspnea, Denies excessive sputum, Denies hemoptysis, Denies home oxygen, Denies wheezing Gastrointestinal: Denies abdominal pain, Denies constipation, Denies diarrhea, Denies loss of appetite, Denies nausea, Denies vomiting, reports hunger Genitourinary: Reports urinary retention, Denies dysuria Musculoskeletal: Denies frequent falls, Denies gait dysfunction, Denies myalgias Integumentary: Denies pruritus, Denies rash, reports redness and swelling of lower legs Neurological: Denies numbness, Denies weakness Psychiatric: Denies anxiety, Denies depression Endocrine: Reports low blood sugars, Denies weight change Active Medications Acetaminophen (Tylenol Tab) 650 mg PO Q6H PRN PRN Reason: Pain Albuterol/Ipratropium (Duoneb 0.5 Mg-3 Mg/3 Ml Soln) 3 ml INHALATION RT-QID PRN PRN Reason: Shortness Of Breath Or Wheezing Albuterol/Ipratropium (Duoneb 0.5 Mg-3 Mg/3 Ml Soln) 3 ml INHALATION RT-QID [facility] Last Admin: 04/29/19 11:53 Dose: 3 ml Documented by: Atorvastatin Calcium (Lipitor) 40 mg PO HS [facility] Last Admin: 04/28/19 21:20 Dose: 40 mg Documented by: Calcitriol (Rocaltrol) 0.25 mcg PO Q48H [facility] Last Admin: 04/27/19 22:56 Dose: 0.25 mcg Documented by: Cholecalciferol (Vitamin D3 (25 Mcg = 1000 Iu)) 2,000 unit PO DAILY [facility] Cyanocobalamin (Vitamin B-12) 1,000 mcg PO DAILY [facility] Last Admin: 04/28/19 10:36 Dose: 1,000 mcg Documented by: Divalproex Sodium (Depakote Er) 1,000 mg PO DAILY [facility] Last Admin: 04/28/19 10:37 Dose: 1,000 mg Documented by: Ferrous Sulfate (Feosol) 325 mg PO BID [facility] Last Admin: 04/28/19 21:20 Dose: 325 mg Documented by: Furosemide (Lasix) 40 mg IV BID@0600,1600 [facility] Last Admin: 04/29/19 05:22 Dose: 40 mg Documented by: Heparin Sodium (Porcine) (Heparin) 5,000 unit SQ Q8HR [facility] Last Admin: 04/29/19 08:08 Dose: 5,000 unit Documented by: Sodium Chloride (Saline 0.9%) 1,000 mls @ 10 mls/hr IV .Q24H [facility] Last Admin: 04/28/19 17:31 Dose: Not Given Documented by: Piperacillin Sod/Tazobactam (Sod 3.375 gm/ Sodium Chloride) 100 mls @ 25 mls/hr IVPB Q8HR [facility] Last Admin: 04/29/19 08:18 Dose: 25 mls/hr Documented by: Sodium Chloride (Saline 0.9%) 1,000 mls @ 75 mls/hr IV .[id number] [facility] Insulin Aspart (Novolog) 0 unit SQ ACHS [facility]; Protocol Last Admin: 04/29/19 14:55 Dose: Not Given Documented by: Levothyroxine Sodium (Synthroid) 50 mcg PO DAILY@0630 [facility] Last Admin: 04/29/19 06:25 Dose: Not Given Documented by: Lisinopril (Zestril) 5 mg PO DAILY [facility] Last Admin: 04/28/19 10:38 Dose: 5 mg Documented by: Miscellaneous Information (Magnesium Per Protocol) 1 each MISCELLANE DAILY PRN; Protocol PRN Reason: Per Protocol Naloxone HCl (Narcan) 0.2 mg IV Q2M PRN PRN Reason: Opioid Reversal Pantoprazole Sodium (Protonix) 40 mg IV DAILY [facility] Polyethylene Glycol (Miralax) 17 gm PO DAILY PRN PRN Reason: Constipation Senna (Senokot) 17.2 mg PO HS PRN PRN Reason: Constipation Tamsulosin HCl (Flomax) 0.4 mg PO DAILY [facility] Last Admin: 04/28/19 10:38 Dose: 0.4 mg Documented by: 05/02/2019 Patient is sitting up in bed in no acute distress. Patient is currently on room air and denies any shortness of breath at this time. Pulmonary and infectious disease are following closely. Patient is being closely monitored at this time. Per case management and social work, patient will return to [facility] home with palliative care. Patient denies any chest pain or palpitations at this time. Guardian [place] is not present at this time. Patient remains afebrile. Patient denies any nausea or vomiting and has been eating well. Guarded prognosis. Objective - Vital Signs Vital signs: Vital Signs Temp 98.0 F 05/02/19 20:02 Pulse 65 05/02/19 20:11 Resp 16 05/02/19 20:02 BP 144/78 05/02/19 20:02 Pulse Ox 100 05/02/19 20:02 Intake & Output 05/02/19 05/02/19 05/03/19 06:59 18:59 06:59 Output Total 175 1500 1600 Balance -175 -1500 -1600 Weight 62 kg Output: Urine 175 1500 1600 Other: Voiding Method Indwelling Catheter Indwelling Catheter Indwelling Catheter # Bowel Movements 4 - Exam Gen: This is a 79-year-old male sitting up in the bed in no acute distress. Vital signs are stable. Blood pressure is 149/67, pulse is 64, respirations are 16, temp is 97.4 oral, oxygen saturation is 94% on room air. HEENT: Head is atraumatic, normocephalic. Pupils equal, round. Sclerae is anicteric. NECK: Supple. Mild JVD noted. No lymphadenopathy. No thyromegaly. LUNGS: Diminished breath sounds at the bases with a few scattered rhonchi. No intercostal retractions. HEART: Regular rate and rhythm. Systolic murmur. ABDOMEN: Soft. Bowel sounds are present. No masses. No tenderness. EXTREMITIES: Mild erythema and swelling noted to bilateral lower extremities. No calf tenderness. NEUROLOGICAL: Patient is awake, alert and oriented x2. Cranial nerves 2 through 12 are grossly intact. - Labs CBC & Chem 7: 05/01/19 04:47 05/01/19 04:47 Labs: Abnormal Lab Results - Last 24 Hours (Table) 05/02/19 05/02/19 05/02/19 Range/Units 12:01 17:31 20:19 POC Glucose (mg/dL) 221 H 255 H 180 H (75-99) mg/dL Microbiology - Last 24 Hours (Table) 04/27/19 12:31 Blood Culture - Preliminary Blood No Growth after 120 hours Assessment and Plan Assessment: Bilateral leg swelling and cellulitis with failure of outpatient treatment; infectious disease is following Acute hypoxemic respiratory failure, multifactorial, possibly related to acute exacerbation of congestive heart failure with systolic dysfunction, possibly related to aspiration pneumonia; pulmonary is following closely Possible aspiration pneumonia, bilateral, left more than right Diabetes mellitus type 2 with hypoglycemia, uncontrolled Increased creatinine with chronic kidney disease stage III Hyperkalemia, mild Mild pancytopenia of undetermined etiology Elevated alkaline phosphatase Recent liver biopsy inconclusive pending secondary consultation for rule out primary biliary cirrhosis, shows chronic cholestatic changes in the initial report of the liver biopsy Hypertension Hyperlipidemia history of myocardial infarction 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 Cardiology, pulmonary, and infectious disease are following. Will continue to monitor vital signs and labs closely. Guarded prognosis. Further recommendations to follow. Patient will plan for discharge to [facility] in the morning. Palliative care upon discharge.
[2019-05-03 01:39] VITALS: TEMP 97.6
[2019-05-03 02:25] LABS: Glucose,Whole Blood 51 mg/dL (75-99)
[2019-05-03 02:47] LABS: Glucose,Whole Blood 71 mg/dL (75-99)
[2019-05-03] MEDS: LEVOTHYROXINE 50 MCG TAB PO SCH (05:30)
[2019-05-03] MEDS: IPRATROPIUM-ALBUTEROL 3 ML NEB INHALATION SCH ×2 (07:12→11:15)
[2019-05-03 07:19] VITALS: BP 178/69; RESP 12
[2019-05-03] MEDS: INSULIN ASPART (NovoLOG) 100 UNIT/ML VIAL SQ SCH ×2 (07:23→12:11)
[2019-05-03 07:28] VITALS: PULSE 65
[2019-05-03 07:28] LABS: Glucose,Whole Blood 118 mg/dL (75-99)
[2019-05-03] MEDS: PANTOPRAZOLE 40 MG TABLET PO SCH (07:46)
[2019-05-03] MEDS: CYANOCOBALAMIN 500 MCG TAB PO SCH (08:25)
[2019-05-03] MEDS: DIVALPROEX ER 500 MG TAB.ER.24H PO SCH (08:25)
[2019-05-03] MEDS: FUROSEMIDE 40 MG TAB PO SCH (08:25)
[2019-05-03] MEDS: CHOLECALCIFEROL 1,000 UNIT TAB PO SCH (08:25)
[2019-05-03] MEDS: AMOXIC-POT CLAV 500-125 MG 1 EACH TAB PO SCH (08:25)
[2019-05-03] MEDS: TAMSULOSIN 0.4 MG CAP.ER.24H PO SCH (08:25)
[2019-05-03] MEDS: FERROUS SULFATE 325 MG TAB PO SCH (08:25)
[2019-05-03] MEDS: LISINOPRIL 5 MG TAB PO SCH (08:31)
[2019-05-03] MEDS: NYSTATIN 100,000 UNIT/GM POWD 15 GM TOPICAL SCH (08:58)
[2019-05-03 11:36] LABS: Glucose,Whole Blood 299 mg/dL (75-99)
--- NOTE | 2019-05-03 14:45 | P.DS ---
Providers Date of admission: 04/27/19 17:16 Expected date of discharge: 05/03/19 Attending physician: Isis Sloan Consults: 04/27/19 15:28 Consult Physician Routine Consulting Provider: Salvador Erwin Consult Reason/Comments: elevated BNP, LE edema Do you want consulting provider notified?: Yes, Notify in am 04/27/19 21:35 Consult Physician Routine Consulting Provider: Francisco Lott Consult Reason/Comments: cellulitis Do you want consulting provider notified?: Yes 04/28/19 23:40 Consult Physician Stat Consulting Provider: Sona Acharya Consult Reason/Comments: ? ppna, pleural effusions Do you want consulting provider notified?: Yes [facility]: Final diagnosis Bilateral leg swelling and cellulitis with failure of outpatient treatment Acute hypoxemic respiratory failure, multifactorial, possibly related to acute exacerbation of congestive heart failure with systolic dysfunction, possibly related to aspiration pneumonia Possible aspiration pneumonia, bilateral, left more than right Diabetes mellitus type 2 with hypoglycemia, uncontrolled Increased creatinine with chronic kidney disease stage III Hyperkalemia, mild Mild pancytopenia of undetermined etiology Elevated alkaline phosphatase Recent liver biopsy for rule out primary biliary cirrhosis, biopsy shows chronic cholecystatic changes initial report of the liver biopsy Hypertension Hyperlipidemia History of myocardial infarction 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 Patient will follow-up with Dr. Acharya in the outpatient setting in 7-10 days. Patient is to continue oral antibiotics until complete per infectious disease recommendations. Total time taken is 35 minutes. History of present illness This is a 79-year-old male who was recently admitted for pain and swelling to the lower extremities as well as pneumonia and was being closely monitored. During hospitalization patient experienced some acute hypoxemic respiratory failure, multifactorial, that was possibly related to an acute exacerbation of CHF with systolic dysfunction or possibly related to aspiration pneumonia. Pulmonary was following closely. Recent chest x-ray shows improvement and will follow-up with Dr. Acharya in the outpatient setting in 7-10 days. Patient is to continue on aspiration precautions and have chopped foods and be monitored while eating. Per family they are considering palliative care as an option in the near future and will be discussed upon return to the [facility] home. Patient is to follow-up with [facility] in the outpatient setting for stent removal that was placed last month. Currently patient denies any shortness of breath, chest pain, or palpitations at this time. Patient has remained afebrile. Patient is on room air and tolerating well. Patient denies any nausea or vomiting and has been tolerating food. Currently patient's condition is stable with much improvement and ready for discharge to the [facility] today. Family is at the bedside. Guarded prognosis. On exam vital signs are stable. Temp is normal. Blood pressure is 178/69, pulse is 63, respirations are 12, oxygen saturation is 98% on room air. Cardio S1 and S2 are muffled. Respiratory system shows diminished breath sounds bilateral bases with some mild crackles in the bases noted. Abdomen is soft, thin, and nontender. Nervous system shows no focal deficits with mild diffuse weakness. Please refer to medication reconciliation sheet for a list of medications. Patient Condition at Discharge: Stable Plan - Discharge Summary Discharge Rx Participant: No New Discharge Prescriptions: New Amoxic-Pot Clav 500-125 mg [Augmentin 500-125 mg] 1 each PO Q12HR 5 Days #10 tab Furosemide [Lasix] 40 mg PO DAILY 30 Days #30 tab Atorvastatin [Lipitor] 40 mg PO HS 30 Days #30 tab Nystatin 100,000 Unit/gm Powd [Mycostatin Powder] 1 applic TOPICAL BID #1 applic Pantoprazole [Protonix] 40 mg PO AC-BRKFST 30 Days #30 tablet. Levothyroxine Sodium [Synthroid] 50 mcg PO DAILY@0630 30 Days #30 tab Lisinopril [Zestril] 5 mg PO DAILY 30 Days #30 tab Albuterol Sulfate [Proair Hfa] 2 puff INHALATION TID PRN 30 Days #1 inhaler PRN Reason: Wheezing Continue Cholecalciferol [Vitamin D3 (25 Mcg = 1000 Iu)] 2,000 unit PO DAILY Calcitriol [Rocaltrol] 0.25 mcg PO Q48H Tamsulosin [Flomax] 0.4 mg PO DAILY Ferrous Sulfate [Iron (65 MG Elemental)] 325 mg PO BID Sennosides [Senna] 17.2 mg PO HS PRN PRN Reason: Constipation Divalproex Sodium [Divalproex Sodium ER] 1,000 mg PO DAILY Insulin Aspart [NovoLOG Flexpen] 5 units SQ AC-TID Polyethylene Glycol 3350 [Miralax] 17 gm PO DAILY PRN PRN Reason: Constipation Cyanocobalamin (Vitamin B-12) [Vitamin B-12] 1,000 mcg PO DAILY Acetaminophen [Tylenol] 650 mg PO Q6H PRN PRN Reason: Pain Discontinued Sulfamethoxazole/Trimethoprim [Bactrim DS 800-160 mg] 1 tab PO BID Discharge Medication List Calcitriol [Rocaltrol] 0.25 mcg PO Q48H 12/29/16 [History] Cholecalciferol [Vitamin D3 (25 Mcg = 1000 Iu)] 2,000 unit PO DAILY 12/29/16 [History] Ferrous Sulfate [Iron (65 MG Elemental)] 325 mg PO BID 12/29/16 [History] Tamsulosin [Flomax] 0.4 mg PO DAILY 12/29/16 [History] Divalproex Sodium [Divalproex Sodium ER] 1,000 mg PO DAILY 03/19/19 [History] Insulin Aspart [NovoLOG Flexpen] 5 units SQ AC-TID 03/19/19 [History] Polyethylene Glycol 3350 [Miralax] 17 gm PO DAILY PRN 03/19/19 [History] Sennosides [Senna] 17.2 mg PO HS PRN 03/19/19 [History] Cyanocobalamin (Vitamin B-12) [Vitamin B-12] 1,000 mcg PO DAILY 04/03/19 [History] Acetaminophen [Tylenol] 650 mg PO Q6H PRN 04/27/19 [History] Amoxic-Pot Clav 500-125 mg [Augmentin 500-125 mg] 1 each PO Q12HR 5 Days #10 tab 05/02/19 [Rx] Atorvastatin [Lipitor] 40 mg PO HS 30 Days #30 tab 05/02/19 [Rx] Furosemide [Lasix] 40 mg PO DAILY 30 Days #30 tab 05/02/19 [Rx] Levothyroxine Sodium [Synthroid] 50 mcg PO DAILY@0630 30 Days #30 tab 05/02/19 [Rx] Lisinopril [Zestril] 5 mg PO DAILY 30 Days #30 tab 05/02/19 [Rx] Nystatin 100,000 Unit/gm Powd [Mycostatin Powder] 1 applic TOPICAL BID #1 applic 05/02/19 [Rx] Pantoprazole [Protonix] 40 mg PO AC-BRKFST 30 Days #30 tablet. 05/02/19 [Rx] Albuterol Sulfate [Proair Hfa] 2 puff INHALATION TID PRN 30 Days #1 inhaler 05/03/19 [Rx] Follow up Appointment(s)/Referral(s): Croinna Barrera III, MD [Primary Care Provider] - 05/04/19 1:30 pm (with Dr Paz) [facility], [NON-STAFF] - As Needed (This is also a number for [facility]. ) Sona Acharya MD [STAFF PHYSICIAN] - 1 Week Ambulatory/Diagnostic Orders: Basic Metabolic Panel [LAB.AMB] Time Frame: 3 Days, Location: None Selected Complete Blood Count w/diff [LAB.AMB] Time Frame: 3 Days, Location: None Selected Patient Instructions/Handouts: Heart Failure (DC), Aspiration Pneumonia (DC), Hyperkalemia (DC) Activity/Diet/Wound Care/Special Instructions: Activity as tolerated continue current diet follow up with primary care provider this week work with palliative care nurse in the outpatient setting Discharge Disposition: HOME WITH HOME HEALTH SERVICES
--- NOTE | 2019-05-03 20:55 | P.PN ---
Subjective Progress Note Date: 05/03/19 This is a 79-year-old male who resides at [facility] with the legal guardian which is his brother. 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 Patient had a recent ERCP and stenting at [facility] with findings of chronic pancreatitis and pseudocyst biliary stricture. 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 There is very minimal portal inflammation with mild periportal fibrosis. It was thought that the alkaline phosphatase most likely secondary to vascular or cardiac compromise rather than biliary cause. Patient also has underlying history of bladder cancer with chronic Romero catheter, diabetes mellitus type 2, intellectual delay. On previous admission to this, patient was found to have Klebsiella oxytoca bacteremia and positive urinary tract infection. He was transferred to [facility] and most likely completed course of antibiotics for this. Klebsiella oxytoca sepsis susceptible to ceftriaxone. Most recently, [facility]ulitis of the left lower extremity with Bactrim and the caregivers noted yesterday that he was not eating which was unlike him. Patient had increasing weakness and lethargy. Patient presented with a temperature of 93.5, WBC 3.1, hemoglobin 8.5, platelet count 105, BUN 34 and creatinine 1.72 and potassium is 5.6. Blood sugar was 26. Patient was given an amp of D50 and he was more alert following this. There was no noted focal neurological deficits. Patient was given calcium gluconate and IV Lasix. Chest x-ray was concerning for possible pneumonia. Lactic acid was normal. Patient was admitted to the cardiac stepdown unit and seen in consultation by cardiology. At the time of this evaluation, patient is sitting up, he is complaining of feeling sleepy and states he did not sleep well last night. He can answer most questions appropriately. He did eat 100% of his breakfast this morning. He has had 2 soft brown stools. Patient has a chronic Romero catheter in place. No decubitus ulcers. \2018 Patient is admitted videoscopic swallow study performed today there is evidence of bev aspiration. Most recent chest x-ray does show some ongoing pneumonia. He was transferred to intensive care unit because of his hypotension that is improving today. The patient is modestly comfortable constipation is resolved and his had multiple soft stools. 05/02/2019 patient is improving still some weakness but is eating supervised meals. 05/03/2019 patient is being readied for transfer. Did well with his pured breakfast being monitored. Pneumonia appears to be improving Objective - Vital Signs Vital signs: Vital Signs Temp 97.6 F 05/03/19 01:05 Pulse 65 05/03/19 07:23 Resp 12 05/03/19 07:14 BP 178/69 05/03/19 07:14 Pulse Ox 98 05/03/19 07:14 Intake & Output 05/03/19 05/03/19 05/04/19 06:59 18:59 06:59 Intake Total 1440 Output Total 1900 Balance -1900 1440 Intake: Oral 1440 Output: Urine 1900 Other: Voiding Method Indwelling Catheter Indwelling Catheter # Bowel Movements 2 1 - Exam Gen: This is a 79-year-old male. Patient appears thin with muscle wasting to the extremities. He appears to be in no acute distress. HEENT: Head is atraumatic, normocephalic. Pupils equal, round. Sclerae is anicteric. NECK: Supple. No JVD. No lymphadenopathy. No thyromegaly. LUNGS: Diminished in the bases. No wheezes or rhonchi. No intercostal retractions. HEART: Regular rate and rhythm. Systolic murmur. ABDOMEN: Soft. Bowel sounds are present. No masses. No tenderness. Romero catheter draining akila urine. Has had fecal incontinence EXTREMITIES: No pedal edema. Dorsalis pedis +1 bilateral. Mild pretibial edema and erythema slightly worse to the left. No drainage noted. NEUROLOGICAL: Patient is awake, alert and oriented x2. No focal neuro deficits. - Labs CBC & Chem 7: 05/01/19 04:47 05/01/19 04:47 Labs: Abnormal Lab Results - Last 24 Hours (Table) 05/03/19 05/03/19 05/03/19 Range/Units 02:23 02:45 07:16 POC Glucose (mg/dL) 51 L 71 L 118 H (75-99) mg/dL 05/03/19 Range/Units 11:25 POC Glucose (mg/dL) 299 H (75-99) mg/dL Microbiology - Last 24 Hours (Table) 04/27/19 12:31 Blood Culture - Final Blood No Growth after 144 hours Laboratory Results WBC 2.0 k/uL (3.8-10.6) L 05/01/19 04:47 RBC 1.99 m/uL (4.30-5.90) L 05/01/19 04:47 Hgb 7.0 gm/dL (13.0-17.5) L 05/01/19 04:47 Hct 22.1 % (39.0-53.0) L 05/01/19 04:47 MCV 111.1 fL (80.0-100.0) H 05/01/19 04:47 MCH 35.2 pg (25.0-35.0) H 05/01/19 04:47 MCHC 31.6 g/dL (31.0-37.0) 05/01/19 04:47 RDW 17.5 % (11.5-15.5) H 05/01/19 04:47 Plt Count 76 k/uL (150-450) L 05/01/19 04:47 Neutrophils % 67 % 04/30/19 04:40 Lymphocytes % 21 % 04/30/19 04:40 Monocytes % 5 % 04/30/19 04:40 Eosinophils % 3 % 04/30/19 04:40 Basophils % 1 % 04/30/19 04:40 Neutrophils # 1.9 k/uL (1.3-7.7) 04/30/19 04:40 Lymphocytes # 0.6 k/uL (1.0-4.8) L 04/30/19 04:40 Monocytes # 0.2 k/uL (0-1.0) 04/30/19 04:40 Eosinophils # 0.1 k/uL (0-0.7) 04/30/19 04:40 Basophils # 0.0 k/uL (0-0.2) 04/30/19 04:40 Manual Slide Review Performed 04/29/19 02:41 Polychromasia Present 04/29/19 02:41 Hypochromasia Marked 05/01/19 04:47 Poikilocytosis Slight 05/01/19 04:47 Poikilocytosis (manual Present 04/28/19 21:59 Anisocytosis Slight 05/01/19 04:47 Macrocytosis Marked A 05/01/19 04:47 Sample Site [facility] 04/28/19 23:56 ABG pH 7.40 (7.35-7.45) 04/28/19 23:56 ABG pCO2 37 mmHg (35-45) 04/28/19 23:56 ABG pO2 91 mmHg (83-108) 04/28/19 23:56 ABG HCO3 23 mmol/L (21-25) 04/28/19 23:56 ABG Total CO2 24 mmol/L (19-24) 04/28/19 23:56 ABG O2 Saturation 96.6 % (94-97) 04/28/19 23:56 ABG Base Excess -1.7 mmol/L 04/28/19 23:56 Aston Test Yes 04/28/19 23:56 FiO2 100 % 04/28/19 23:56 Sodium 137 mmol/L (137-145) 05/01/19 04:47 Potassium 4.3 mmol/L (3.5-5.1) 05/01/19 04:47 Chloride 104 mmol/L (98-107) 05/01/19 04:47 Carbon Dioxide 31 mmol/L (22-30) H 05/01/19 04:47 Anion Gap 2 mmol/L 05/01/19 04:47 BUN 33 mg/dL (9-20) H 05/01/19 04:47 Creatinine 1.83 mg/dL (0.66-1.25) H 05/01/19 04:47 Est GFR (CKD-EPI)AfAm 40 (>60 ml/min/1.73 sqM) 05/01/19 04:47 Est GFR (CKD-EPI)NonAf 35 (>60 ml/min/1.73 sqM) 05/01/19 04:47 Glucose 93 mg/dL (74-99) 05/01/19 04:47 POC Glucose (mg/dL) 299 mg/dL (75-99) H 05/03/19 11:25 POC Glu Hazardous Waste Management Specialist ID Renee Rojas 05/03/19 11:25 Lactic Ac Sepsis Rflx Y 04/28/19 22:30 Plasma Lactic Acid Alejandro 1.7 mmol/L (0.7-2.0) 04/29/19 01:53 Calcium 8.1 mg/dL (8.4-10.2) L 05/01/19 04:47 Phosphorus 3.9 mg/dL (2.5-4.5) 04/30/19 04:40 Magnesium 1.8 mg/dL (1.6-2.3) 04/30/19 04:40 Total Bilirubin 0.7 mg/dL (0.2-1.3) 04/27/19 12:31 AST 31 U/L (17-59) 04/27/19 12:31 ALT 28 U/L (21-72) 04/27/19 12:31 Alkaline Phosphatase 291 U/L (38-126) H 04/27/19 12:31 Troponin I <0.012 ng/mL (0.000-0.034) 04/27/19 12:30 NT-Pro-B Natriuret Pep 7120 pg/mL 04/27/19 12:31 Total Protein 5.7 g/dL (6.3-8.2) L 04/27/19 12:31 Albumin 2.9 g/dL (3.5-5.0) L 04/27/19 12:31 TSH 8.210 mIU/L (0.465-4.680) H 04/28/19 05:40 Free T4 1.31 ng/dL (0.78-2.19) 04/28/19 05:40 Urine Color Light Yellow 04/28/19 17:24 Urine Appearance Clear (Clear) 04/28/19 17:24 Urine pH 5.5 (5.0-8.0) 04/28/19 17:24 Ur Specific [place] 1.012 (1.001-1.035) 04/28/19 17:24 Urine Protein Negative (Negative) 04/28/19 17:24 Urine Glucose (UA) 4+ (Negative) H 04/28/19 17:24 Urine Ketones Negative (Negative) 04/28/19 17:24 Urine Blood Negative (Negative) 04/28/19 17:24 Urine Nitrite Negative (Negative) 04/28/19 17:24 Urine Bilirubin Negative (Negative) 04/28/19 17:24 Urine Urobilinogen <2.0 mg/dL (<2.0) 04/28/19 17:24 Ur Leukocyte Esterase Negative (Negative) 04/28/19 17:24 Microbiology 04/27/19 12:31 Blood Blood Culture - Final No Growth after 144 hours 04/27/19 17:24 Urine,Catheterized Urine Culture - Final Assessment and Plan (1) CHF (congestive heart failure) Status: Acute Code(s): I50.9 - HEART FAILURE, UNSPECIFIED SNOMED Code(s): 97016138 (2) Cognitive developmental delay Status: Chronic Code(s): F81.9 - DEVELOPMENTAL DISORDER OF SCHOLASTIC SKILLS, UNSPECIFIED SNOMED Code(s): 349197377 (3) Pneumonia Narrative/Plan: 79-year-old male [facility] to Hospital with increasing weakness and lethargy. He had relative hypothermia and some ongoing pancytopenia. He was recently hospitalized which point in time he did have difficulties with Klebsiella oxytoca urinary tract infection and bacteremia. He also is having difficulties and underwent liver biopsy. No evidence of primary biliary cholangitis was found the patient continues with ongoing decline of his status. He has now admitted with evidence of infection from urinary tract ant ibiotic therapy with Rocephin has been initiated. Urinary catheter change has been requested. Patient has evidence of a fall and has some bruising to the bilateral pretibial areas but they are not open weeping or draining. Cultures will help guide the course of therapy especially for the time of discharge. It is possible the patient's trimethoprim sulfamethoxazole his worsened his pancytopenia and is now discontinued. Nutritional supplementation in monitoring for recovery of his bone marrow is in process. patient's status worsened. According to the ICU for acute hypoxic respiratory failure on the basis of acute congestive heart failure and likely aspiration pneumonitis. The patient has been seen by pulmonary critical care. He has been made nothing by mouth and the determination is being made as to his further feeding status. Antibiotic therapy with Zosyn continues. His pancytopenia seems to be improving. 05/02/2019 patient is having improvement. Blood cultures are negative, urine cultures are negative. Concerns to aspiration pneumonia, the antibiotic therapy with Zosyn is being utilized at this point in time. We'll likely transition to Augmentin the time of his discharge. 05/03/2019 the patient is improved. Blood cultures are negative. With concerns of aspiration pneumonia we'll transition his antibiotic therapy to Augmentin orders are given to the extended care facility for the time of his transfer. The patient's family was somewhat upset at the choice of his lunch apparently it was not a pured-type diet. The patient's liver function tests are completely normal. Status: Acute Code(s): J18.9 - PNEUMONIA, UNSPECIFIED ORGANISM SNOMED Code(s): 401502540
[2019-05-05 09:31] LABS: Glucose,Whole Blood 275 mg/dL (75-99)
[2019-05-05 09:31] LABS: Glucose,Whole Blood 339 mg/dL (75-99)
[2019-05-05 09:31] LABS: Glucose,Whole Blood 292 mg/dL (75-99)
[2019-05-05 09:32] LABS: Glucose,Whole Blood 433 mg/dL (75-99)
[2019-05-05 09:32] LABS: Glucose,Whole Blood 421 mg/dL (75-99)
== END 2019-05-03 14:40 | disposition home health service (06) | DRG 602 ==
LOC: EC 11:59 → 3SCARD 17:16 → 2SICU 04-29 00:13 → 4SSUR 05-01 19:11
PROVIDERS: ADMIT Hospitalist; ATTEND Hospitalist
DX: L03.115 Cellulitis of right lower limb (principal); I50.23 Acute on chronic systolic (congestive) heart failure; J69.0 Pneumonitis due to inhalation of food and vomit; J96.01 Acute respiratory failure with hypoxia; D61.818 Other pancytopenia; E87.2 Acidosis; I13.0 Hypertensive heart and chronic kidney disease with heart failure and stage 1 through stage 4 chronic kidney disease, or unspecified chronic kidney disease; K86.1 Other chronic pancreatitis; K86.3 Pseudocyst of pancreas; E88.40 Mitochondrial metabolism disorder, unspecified; N17.9 Acute kidney failure, unspecified; L03.116 Cellulitis of left lower limb; N18.3 Chronic kidney disease, stage 3 (moderate); Z87.440 Personal history of urinary (tract) infections; D46.9 Myelodysplastic syndrome, unspecified; T37.0X5A Adverse effect of sulfonamides, initial encounter; E11.22 Type 2 diabetes mellitus with diabetic chronic kidney disease; E11.51 Type 2 diabetes mellitus with diabetic peripheral angiopathy without gangrene; E11.649 Type 2 diabetes mellitus with hypoglycemia without coma; E78.5 Hyperlipidemia, unspecified; E87.5 Hyperkalemia; F81.9 Developmental disorder of scholastic skills, unspecified; I25.2 Old myocardial infarction; I25.10 Atherosclerotic heart disease of native coronary artery without angina pectoris; I27.20 Pulmonary hypertension, unspecified; I49.3 Ventricular premature depolarization; J44.9 Chronic obstructive pulmonary disease, unspecified; K74.3 Primary biliary cirrhosis; Z51.5 Encounter for palliative care; Z79.4 Long term (current) use of insulin; Z79.899 Other long term (current) drug therapy; Z82.5 Family history of asthma and other chronic lower respiratory diseases; Z85.51 Personal history of malignant neoplasm of bladder; Z87.891 Personal history of nicotine dependence; Z95.5 Presence of coronary angioplasty implant and graft; Z88.8 Allergy status to other drugs, medicaments and biological substances; I08.1 Rheumatic disorders of both mitral and tricuspid valves; Z98.41 Cataract extraction status, right eye; R33.9 Retention of urine, unspecified; T68.XXXA Hypothermia, initial encounter; Z91.81 History of falling; Z79.2 Long term (current) use of antibiotics
CPT/HCPCS: 36415; 36600; 71045; 71046; 74230; 80048; 80053; 81003; 82805; 83605; 83735; 83880; 84100; 84439; 84443; 84484; 85025; 85027; 87040; 87086; 93005; 93306; 94640; 94760; 96361; 96365; 96367; 96375; 99285

== ENCOUNTER 2019-05-28 20:09 | Emergency (ER) | payer MEDICARE, OTHER ==
[2019-05-28 20:21] LABS: Glucose,Whole Blood 42 mg/dL (75-99)
[2019-05-28 20:23] VITALS: RESP 18
[2019-05-28] MEDS ORDERED: DEXTROSE 50% SYRINGE 50 ML IVP STA (20:34)
--- NOTE | 2019-05-28 21:04 | ED ---
General Adult HPI - General Chief complaint: Recheck/Abnormal Lab/Rx Stated complaint: loss of appetite, diabetic issues Time Seen by Provider: 05/28/19 20:40 Source: EMS Mode of arrival: EMS Limitations: no limitations - History of Present Illness Initial comments: 79-year-old male patient is brought to the emergency department today for evaluation of low blood sugar. Patient lives at a [facility], they state that he has had decreased appetite over the last week. States that he has been complaining of lower abdominal pain. They state that he has normal bowel movements. He does have a indwelling Romero catheter. They deny any fever or chills. States that he has been receiving his dosages of insulin despite not eating which caused low blood sugar today. Upon arrival to the emergency department sugar was 42. Patient reports feeling dizzy. Reports abdominal pain. Denies any nausea, vomiting, chest pain, or shortness of breath. He denies any weakness. Patient denies any recent rash, back pain, numbness, tingling, headache, visual changes, or any other complaints. - Related Data Home Medications Medication Instructions Recorded Confirmed Calcitriol [Rocaltrol] 0.25 mcg PO Q48H 12/29/16 05/28/19 Cholecalciferol [Vitamin D3 (25 2,000 unit PO DAILY 12/29/16 05/28/19 Mcg = 1000 Iu)] Ferrous Sulfate [Iron (65 MG 325 mg PO BID 12/29/16 05/28/19 Elemental)] Tamsulosin [Flomax] 0.4 mg PO DAILY 12/29/16 05/28/19 Divalproex Sodium [Divalproex 1,000 mg PO DAILY 03/19/19 05/28/19 Sodium ER] Insulin Aspart [NovoLOG Flexpen] 5 units SQ AC-TID 03/19/19 05/28/19 Polyethylene Glycol 3350 [Miralax] 17 gm PO DAILY PRN 03/19/19 05/28/19 Sennosides [Senna] 17.2 mg PO HS PRN 03/19/19 05/28/19 Cyanocobalamin (Vitamin B-12) 1,000 mcg PO DAILY 04/03/19 05/28/19 [Vitamin B-12] Albuterol Sulfate [Proair Hfa] 2 puff INHALATION RT-TID PRN 05/28/19 05/28/19 Glucerna Shake 1 can PO BID 05/28/19 05/28/19 L.acidoph,Paracasei, B.lactis 1 cap PO DAILY 05/28/19 05/28/19 [Probiotic] NIFEdipine XL [Procardia Xl] 30 mg PO DAILY 05/28/19 05/28/19 Pantoprazole [Protonix] 40 mg PO DAILY@0730 05/28/19 05/28/19 Ursodiol 300 mg PO AC-TID 05/28/19 05/28/19 Previous Rx's Medication Instructions Recorded Atorvastatin [Lipitor] 40 mg PO HS 30 Days #30 tab 05/02/19 Furosemide [Lasix] 40 mg PO DAILY 30 Days #30 tab 05/02/19 Levothyroxine Sodium [Synthroid] 50 mcg PO DAILY@0630 30 Days #30 05/02/19 tab Lisinopril [Zestril] 5 mg PO DAILY 30 Days #30 tab 05/02/19 Nystatin 100,000 Unit/gm Powd 1 applic TOPICAL BID #1 applic 05/02/19 [Mycostatin Powder] Cephalexin [Keflex] 500 mg PO Q6HR #40 cap 05/28/19 Allergies Allergy/AdvReac Type Severity Reaction Status Date / Time lithium Allergy Unknown Verified 05/28/19 20:41 Review of Systems ROS Statement: Those systems with pertinent positive or pertinent negative responses have been documented in the HPI. ROS Other: All systems not noted in ROS Statement are negative. Past Medical History Past Medical History: Cancer, Diabetes Mellitus, Hyperlipidemia, Hypertension, Myocardial Infarction (ND) Additional Past Medical History / Comment(s): Mental handicap-approx capacity at age 9.,bladder Ca approx 2013,elevated potassium Last Myocardial Infarction Date:: 2009 History of Any Multi-Drug Resistant Organisms: None Reported Past Surgical History: Heart Catheterization With Stent Additional Past Surgical History / Comment(s): bladder tumors removed; Cataract R eye, stent place in pancreatic duct Past Anesthesia/Blood Transfusion Reactions: No Reported Reaction Date of Last Stent Placement:: 2009 Past Psychological History: No Psychological Hx Reported Smoking Status: Never smoker Past Alcohol Use History: None Reported Past Drug Use History: None Reported - Past Family History Father Family Medical History: Cancer Additional Family Medical History / Comment(s): lung Mother Family Medical History: COPD Additional Family Medical History / Comment(s): bowel surgeries General Exam Limitations: no limitations General appearance: alert, in no apparent distress, other (Physical well- developed, well-nourished, pale appearing adult male patient in no acute distress. Vital signs upon presentation are temperature 97.6F, pulse 61, respirations 18, blood pressure 131/71, pulse ox 98% on room air.) Eye exam: Present: normal appearance, PERRL, EOMI. Absent: scleral icterus, conjunctival injection, nystagmus, periorbital swelling ENT exam: Present: normal exam, normal oropharynx, mucous membranes moist Respiratory exam: Present: normal lung sounds bilaterally. Absent: respiratory distress, wheezes, rales, rhonchi, stridor Cardiovascular Exam: Present: regular rate, normal rhythm, normal heart sounds. Absent: systolic murmur, diastolic murmur, rubs, gallop, clicks GI/Abdominal exam: Present: soft, tenderness (Left lower quadrant tenderness), normal bowel sounds. Absent: distended, guarding, rebound, rigid Neurological exam: Present: alert, CN II-XII intact, other (Strength in all 4 extremities is 5/5.). Absent: oriented X3 (Oriented 2) Psychiatric exam: Present: normal affect, normal mood Skin exam: Present: warm, dry, intact, pallor. Absent: normal color, rash Course Vital Signs 05/28/19 05/28/19 05/29/19 20:12 23:25 00:25 Temperature 97.6 F 98.0 F Pulse Rate 61 60 59 L Respiratory 18 18 18 Rate Blood Pressure 131/71 137/87 121/68 O2 Sat by Pulse 98 97 94 L Oximetry Medical Decision Making - Medical Decision Making 79-year-old male patient presents to the emergency department today for ev aluation of hypoglycemia. Caregiver is with patient states that he has not been eating very well over the last week. Labs reviewed and did reveal hemoglobin of 8.5 which is chronic for the patient and improved from 05/06/2019. BUN is 43, creatinine 1.27 which is also chronic, creatinine slightly worse, we did give IV fluids here. Blood sugar upon arrival was 42. He is given an amp of D50 and orange juice. Repeat was 124 and subsequently 83. Urinalysis showed large leukocyte esterase, 17 white blood cells, rare white blood cell clumps, few bacteria, 5 hyaline casts, and rare mucous. We did urine culture. Patient was given IV Rocephin here in the emergency department. He will be [facility] back to the [facility] with prescription for Keflex for urinary tract infection. There are also given an order to not administer insulin until after the patient eats. They're instructed to follow-up with the primary care physician for recheck in 1-2 days. Return parameters were discussed in detail. They verbalize understanding and agree with this plan. - Lab Data Result diagrams: 05/28/19 20:30 05/28/19 20:30 Lab Results 05/28/19 05/28/19 05/28/19 Range/Units 20:19 20:30 20:30 WBC 4.2 (3.8-10.6) k/uL RBC 2.47 L (4.30-5.90) m/uL Hgb 8.5 L (13.0-17.5) gm/dL Hct 26.6 L (39.0-53.0) % MCV 107.5 H (80.0-100.0) fL MCH 34.5 (25.0-35.0) pg MCHC 32.1 (31.0-37.0) g/dL RDW 15.6 H (11.5-15.5) % Plt Count 78 L (150-450) k/uL Neutrophils % (Manual) 50 % Band Neutrophils % 14 % Lymphocytes % (Manual) 30 % Monocytes % (Manual) 6 % Neutrophils # (Manual) 2.60 (1.3-7.7) k/uL Lymphocytes # (Manual) 1.26 (1.0-4.8) k/uL Monocytes # (Manual) 0.25 (0-1.0) k/uL Nucleated RBCs 0 (0-0) /100 WBC Manual Slide Review Performed Polychromasia Present Hypochromasia Moderate Poikilocytosis Slight Anisocytosis (manual) Present Macrocytosis Marked A Sodium 141 (137-145) mmol/L Potassium 4.3 (3.5-5.1) mmol/L Chloride 104 (98-107) mmol/L Carbon Dioxide 29 (22-30) mmol/L Anion Gap 8 mmol/L BUN 43 H (9-20) mg/dL Creatinine 1.27 H (0.66-1.25) mg/dL Est GFR (CKD-EPI)AfAm 63 (>60 ml/min/1.73 sqM) Est GFR (CKD-EPI)NonAf 54 (>60 ml/min/1.73 sqM) Glucose 31 L* (74-99) mg/dL POC Glucose (mg/dL) 42 L (75-99) mg/dL POC Glu Pump Installer ID Suzy Milton Plasma Lactic Acid Alejandro (0.7-2.0) mmol/L Calcium 8.2 L (8.4-10.2) mg/dL Total Bilirubin 0.6 (0.2-1.3) mg/dL AST 37 (17-59) U/L ALT 20 L (21-72) U/L Alkaline Phosphatase 240 H (38-126) U/L Troponin I (0.000-0.034) ng/mL Total Protein 5.5 L (6.3-8.2) g/dL Albumin 2.7 L (3.5-5.0) g/dL Amylase 64 (30-110) U/L Lipase <10 L (23-300) U/L Urine Color Urine Appearance (Clear) Urine pH (5.0-8.0) Ur Specific [place] (1.001-1.035) Urine Protein (Negative) Urine Glucose (UA) (Negative) Urine Ketones (Negative) Urine Blood (Negative) Urine Nitrite (Negative) Urine Bilirubin (Negative) Urine Urobilinogen (<2.0) mg/dL Ur Leukocyte Esterase (Negative) Urine RBC (0-5) /hpf Urine WBC (0-5) /hpf Urine WBC Clumps (None) /hpf Ur Squamous Epith Cells (0-4) /hpf Urine Bacteria (None) /hpf Hyaline Casts (0-2) /lpf Urine Mucus (None) /hpf Blood Type Blood Type Recheck Bld Type Recheck Status Antibody Screen Spec Expiration Date 05/28/19 05/28/19 05/28/19 Range/Units 20:30 20:30 20:30 WBC (3.8-10.6) k/uL RBC (4.30-5.90) m/uL Hgb (13.0-17.5) gm/dL Hct (39.0-53.0) % MCV (80.0-100.0) fL MCH (25.0-35.0) pg MCHC (31.0-37.0) g/dL RDW (11.5-15.5) % Plt Count (150-450) k/uL Neutrophils % (Manual) % Band Neutrophils % % Lymphocytes % (Manual) % Monocytes % (Manual) % Neutrophils # (Manual) (1.3-7.7) k/uL Lymphocytes # (Manual) (1.0-4.8) k/uL Monocytes # (Manual) (0-1.0) k/uL Nucleated RBCs (0-0) /100 WBC Manual Slide Review Polychromasia Hypochromasia Poikilocytosis Anisocytosis (manual) Macrocytosis Sodium (137-145) mmol/L Potassium (3.5-5.1) mmol/L Chloride (98-107) mmol/L Carbon Dioxide (22-30) mmol/L Anion Gap mmol/L BUN (9-20) mg/dL Creatinine (0.66-1.25) mg/dL Est GFR (CKD-EPI)AfAm (>60 ml/min/1.73 sqM) Est GFR (CKD-EPI)NonAf (>60 ml/min/1.73 sqM) Glucose (74-99) mg/dL POC Glucose (mg/dL) (75-99) mg/dL POC Glu Pump Installer ID Plasma Lactic Acid Alejandro 1.7 (0.7-2.0) mmol/L Calcium (8.4-10.2) mg/dL Total Bilirubin (0.2-1.3) mg/dL AST (17-59) U/L ALT (21-72) U/L Alkaline Phosphatase (38-126) U/L Troponin I 0.014 (0.000-0.034) ng/mL Total Protein (6.3-8.2) g/dL Albumin (3.5-5.0) g/dL Amylase (30-110) U/L Lipase (23-300) U/L Urine Color Urine Appearance (Clear) Urine pH (5.0-8.0) Ur Specific [place] (1.001-1.035) Urine Protein (Negative) Urine Glucose (UA) (Negative) Urine Ketones (Negative) Urine Blood (Negative) Urine Nitrite (Negative) Urine Bilirubin (Negative) Urine Urobilinogen (<2.0) mg/dL Ur Leukocyte Esterase (Negative) Urine RBC (0-5) /hpf Urine WBC (0-5) /hpf Urine WBC Clumps (None) /hpf Ur Squamous Epith Cells (0-4) /hpf Urine Bacteria (None) /hpf Hyaline Casts (0-2) /lpf Urine Mucus (None) /hpf Blood Type A Positive Blood Type Recheck A Pos Bld Type Recheck Status No Antibody Screen NEGATIVE Spec Expiration Date 05/31/2019232905/28/19 05/28/19 05/28/19 Range/Units 21:40 21:42 23:15 WBC (3.8-10.6) k/uL RBC (4.30-5.90) m/uL Hgb (13.0-17.5) gm/dL Hct (39.0-53.0) % MCV (80.0-100.0) fL MCH (25.0-35.0) pg MCHC (31.0-37.0) g/dL RDW (11.5-15.5) % Plt Count (150-450) k/uL Neutrophils % (Manual) % Band Neutrophils % % Lymphocytes % (Manual) % Monocytes % (Manual) % Neutrophils # (Manual) (1.3-7.7) k/uL Lymphocytes # (Manual) (1.0-4.8) k/uL Monocytes # (Manual) (0-1.0) k/uL Nucleated RBCs (0-0) /100 WBC Manual Slide Review Polychromasia Hypochromasia Poikilocytosis Anisocytosis (manual) Macrocytosis Sodium (137-145) mmol/L Potassium (3.5-5.1) mmol/L Chloride (98-107) mmol/L Carbon Dioxide (22-30) mmol/L Anion Gap mmol/L BUN (9-20) mg/dL Creatinine (0.66-1.25) mg/dL Est GFR (CKD-EPI)AfAm (>60 ml/min/1.73 sqM) Est GFR (CKD-EPI)NonAf (>60 ml/min/1.73 sqM) Glucose (74-99) mg/dL POC Glucose (mg/dL) 124 H 83 (75-99) mg/dL POC Glu Pump Installer Gracy Rowland Tiffany Plasma Lactic Acid Alejandro (0.7-2.0) mmol/L Calcium (8.4-10.2) mg/dL Total Bilirubin (0.2-1.3) mg/dL AST (17-59) U/L ALT (21-72) U/L Alkaline Phosphatase (38-126) U/L Troponin I (0.000-0.034) ng/mL Total Protein (6.3-8.2) g/dL Albumin (3.5-5.0) g/dL Amylase (30-110) U/L Lipase (23-300) U/L Urine Color Yellow Urine Appearance Clear (Clear) Urine pH 6.5 (5.0-8.0) Ur Specific [place] 1.010 (1.001-1.035) Urine Protein Negative (Negative) Urine Glucose (UA) Negative (Negative) Urine Ketones Negative (Negative) Urine Blood Negative (Negative) Urine Nitrite Negative (Negative) Urine Bilirubin Negative (Negative) Urine Urobilinogen <2.0 (<2.0) mg/dL Ur Leukocyte Esterase Large H (Negative) Urine RBC 3 (0-5) /hpf Urine WBC 17 H (0-5) /hpf Urine WBC Clumps Rare H (None) /hpf Ur Squamous Epith Cells 1 (0-4) /hpf Urine Bacteria Few H (None) /hpf Hyaline Casts 5 H (0-2) /lpf Urine Mucus Rare H (None) /hpf Blood Type Blood Type Recheck Bld Type Recheck Status Antibody Screen Spec Expiration Date - EKG Data -: EKG Interpreted by Ct EKG Comments: EKG obtained at 2109 shows sinus rhythm. There are premature supraventricular complexes. Ventricular rate is 64, PA interval 154, QRS duration 100, QTc 462, QTc 476. No evidence of ST elevation or depression. - Radiology Data Radiology results: report reviewed, image reviewed CT abdomen and pelvis without contrast was obtained. Report was reviewed in its entirety. Impression by Dr. Carter shows extensive vascular calcification. Biliary stent with pneumobilia. Pleural effusions and basilar pulmonary infil trate and atelectasis which is unchanged. Moderate ascites unchanged. Changes consistent with anasarca. Extensive pancreatic calcification consistent with old chronic pancreatitis unchanged. Extensive sigmoid diverticulosis without diverticulitis. Disposition Clinical Impression: Hypoglycemia, Abdominal pain, Urinary tract infection Disposition: HOME SELF-CARE Condition: Good Instructions (If sedation given, give patient instructions): Hypoglycemia in a Person with Diabetes (ED), Abdominal Pain (ED), Urinary Tract Infection in Older Adults (ED) Additional Instructions: Do not administer insulin unless patient has eaten. Complete antibiotic pre scription in full. Follow up with primary care physician for further evaluation of patient's abdominal pain. Return to the emergency department for any new, worsening, or concerning symptoms. Prescriptions: Cephalexin [Keflex] 500 mg PO Q6HR #40 cap Is patient prescribed a controlled substance at d/c from ED?: No Referrals: Corinna Barrera III, MD [Primary Care Provider] - 1-2 days Time of Disposition: 23:56
[2019-05-28 21:42] LABS: HCT 26.6 % (39.0-53.0); HGB 8.5 gm/dL (13.0-17.5); Hypochromasia Moderate; MCH 34.5 pg (25.0-35.0); MCHC 32.1 g/dL (31.0-37.0); MCV 107.5 fL (80.0-100.0); Macrocytosis Marked; Mean Platelet Volume 7.7; Poikilocytosis Slight; RBC 2.47 m/uL (4.30-5.90); RDW 15.6 % (11.5-15.5); WBC 4.2 k/uL (3.8-10.6)
[2019-05-28 21:44] LABS: Glucose,Whole Blood 124 mg/dL (75-99)
[2019-05-28 21:53] LABS: ALT 20 U/L (21-72); AST 37 U/L (17-59); African American GFR (CKD) 63 (>60 ml/min/1.73 sqM); Albumin 2.7 g/dL (3.5-5.0); Alkaline Phosphatase 240 U/L (38-126); Amylase 64 U/L (30-110); Anion Gap 8 mmol/L; Blood Urea Nitrogen 43 mg/dL (9-20); Calcium 8.2 mg/dL (8.4-10.2); Carbon Dioxide 29 mmol/L (22-30); Chloride 104 mmol/L (98-107); Sodium 141 mmol/L (137-145); Total Bilirubin 0.6 mg/dL (0.2-1.3); Total Protein 5.5 g/dL (6.3-8.2)
[2019-05-28 22:05] LABS: Potassium 4.3 mmol/L (3.5-5.1)
[2019-05-28 22:06] LABS: Glucose 31 mg/dL (74-99)
[2019-05-28 22:19] LABS: Appearance,Urine Clear (Clear); Bacteria,Urine Few /hpf; Bilirubin,Urine Negative (Negative); Blood,Urine Negative (Negative); Color,Urine Yellow; Glucose,Urine (UA) Negative (Negative); Hyaline Casts,Urine 5 /lpf (0-2); Ketones,Urine Negative (Negative); Leukocyte Esterase,Urine Large (Negative); Mucus,Urine Rare /hpf; Nitrite,Urine Negative (Negative); PH, Urine 6.5 (5.0-8.0); Protein,Urine Negative (Negative); RBC,Urine 3 /hpf (0-5); Squamous Epithelial Cell,Urine 1 /hpf (0-4); Urobilinogen,Urine <2.0 mg/dL (<2.0); WBC,Urine 17 /hpf (0-5)
[2019-05-28 22:41] LABS: Anisocytosis (M) Present; Band Neutrophils % 14 %; Lymphocytes # (M) 1.26 k/uL (1.0-4.8); Monocytes # (M) 0.25 k/uL (0-1.0); Neutrophils % (M) 50 %; Nucleated Red Blood Cells 0 /100 WBC (0-0); Polychromasia Present; Total Cells Counted 100
[2019-05-28 22:44] LABS: Platelet Count 78 k/uL (150-450)
--- NOTE | 2019-05-28 23:04 | CT ---
EXAMINATION TYPE: CT abdomen pelvis wo con DATE OF EXAM: 05/28/2019 COMPARISON: 04/03/2019 HISTORY: llq pain CT DLP: 608.7 mGycm Automated exposure control for dose reduction was used. TECHNIQUE: Helical acquisition of images was performed from the lung bases through the pelvis. FINDINGS: There are moderate-sized bilateral pleural effusions. There is basilar pulmonary infiltrates and atel ectasis. There is air in the anterior biliary tree. There is biliary stent. There is moderate ascites . Spleen is intact. There is no discrete liver mass. There is extensive calcification in the pancreas . Kidneys have no hydronephrosis. There is renal vascular calcification. There is no sign of retroperit faustin adenopathy. There is extensive atherosclerotic vascular calcification. There is extensive sigmo id diverticulosis. Detail is limited by lack of any contrast. There is Romero catheter in the urinary bladder. There is no inguinal hernia. There is increased density in the subcutaneous fat consistent w ith anasarca. There are spondylotic changes in the lumbar spine. The bony pelvis is intact. IMPRESSION: EXTENSIVE VASCULAR CALCIFICATION. BILIARY STENT WITH PNEUMOBILIA. PLEURAL EFFUSIONS AND BASILAR PULMO NARY INFILTRATES AND ATELECTASIS UNCHANGED. MODERATE ASCITES UNCHANGED. CHANGES CONSISTENT WITH ANASA RCA. EXTENSIVE PANCREATIC CALCIFICATION CONSISTENT WITH OLD CHRONIC PANCREATITIS UNCHANGED. EXTENSIVE SIGMOID DIVERTICULOSIS WITHOUT DIVERTICULITIS. Limited exam.
[2019-05-28 23:23] LABS: Glucose,Whole Blood 83 mg/dL (75-99)
[2019-05-28] MEDS ORDERED: cefTRIAXone IN SWFI 1,000 MG/10 ML SYRINGE IVP ONE (23:30)
[2019-05-29 00:27] VITALS: BP 121/68; PULSE 59; TEMP 98
== END 2019-05-29 00:27 | disposition home or self-care (01) ==
LOC: EC 20:09
DX: E11.649 Type 2 diabetes mellitus with hypoglycemia without coma (principal); N39.0 Urinary tract infection, site not specified; E78.5 Hyperlipidemia, unspecified; I10 Essential (primary) hypertension; I25.2 Old myocardial infarction; Z79.4 Long term (current) use of insulin; Z79.899 Other long term (current) drug therapy; Z88.8 Allergy status to other drugs, medicaments and biological substances; Z85.51 Personal history of malignant neoplasm of bladder; Z95.5 Presence of coronary angioplasty implant and graft; Z96.89 Presence of other specified functional implants; Z98.890 Other specified postprocedural states
CPT/HCPCS: 36415; 93005; 86900; 86901; 80053; 82150; 83605; 83690; 84484; 85025; 86850; 81001; 87086; 87077; 87186; 74176; 99285; 96374; 96375; J0696

== ENCOUNTER 2019-06-11 11:54 | Inpatient (IN) | payer MEDICARE, OTHER ==
[2019-06-11] MEDS ORDERED: SODIUM CHLORIDE 0.9% 1,000 ML IV STA (12:18)
--- NOTE | 2019-06-11 12:18 | ED ---
Male Urogenital HPI - General Chief complaint: Urogenital Stated complaint: Uti Time Seen by Provider: 06/11/19 11:54 Source: patient, EMS, RN notes reviewed, old records reviewed Mode of arrival: EMS Limitations: altered mental status - History of Present Illness Initial comments: This is a 79-year-old male with a history of multiple medical issues including type 2 diabetes hypertension atherosclerotic heart disease cardiac stent TURP among other medical issues who had been treated outpatient for UTI was sent today from a [facility] facility for evaluation of UTI. He's demonstrated decreased level of activity and consciousness though he normally is somewhat confused anyway. No reports of nausea vomiting fevers chills or sweats he has had decreased oral intake however. He did recently get antibiotics changed from Keflex to Bactrim and Cipro. The patient himself is a poor historian - Related Data Home Medications Medication Instructions Recorded Confirmed Calcitriol [Rocaltrol] 0.25 mcg PO Q48H 12/29/16 06/11/19 Cholecalciferol [Vitamin D3 (25 2,000 unit PO DAILY@0800 12/29/16 06/11/19 Mcg = 1000 Iu)] Ferrous Sulfate [Iron (65 MG 325 mg PO BID@0800,2100 12/29/16 06/11/19 Elemental)] Tamsulosin [Flomax] 0.4 mg PO DAILY@0800 12/29/16 06/11/19 Divalproex Sodium [Divalproex 1,000 mg PO DAILY@0800 03/19/19 06/11/19 Sodium ER] Insulin Aspart [NovoLOG Flexpen] 5 units SQ PC-TID 03/19/19 06/11/19 Polyethylene Glycol 3350 [Miralax] 17 gm PO DAILY PRN 03/19/19 06/11/19 Sennosides [Senna] 17.2 mg PO HS PRN 03/19/19 06/11/19 Cyanocobalamin (Vitamin B-12) 1,000 mcg PO DAILY 04/03/19 06/11/19 [Vitamin B-12] Albuterol Sulfate [Proair Hfa] 2 puff INHALATION RT-TID PRN 05/28/19 06/11/19 Glucerna Shake 1 can PO BID@0900,2100 05/28/19 06/11/19 L.acidoph,Paracasei, B.lactis 1 cap PO DAILY@0800 05/28/19 06/11/19 [Probiotic] NIFEdipine XL [Procardia Xl] 30 mg PO DAILY@0800 05/28/19 06/11/19 Pantoprazole [Protonix] 40 mg PO DAILY@0730 05/28/19 06/11/19 Ursodiol 300 mg PO AC-TID 05/28/19 06/11/19 Ciprofloxacin HCl [Cipro] 500 mg PO BID@0800,199906/11/19 06/11/19 Furosemide [Lasix] 40 mg PO DAILY@0800 06/11/19 06/11/19 Levothyroxine Sodium [Synthroid] 50 mcg PO DAILY@0830 06/11/19 06/11/19 Lisinopril [Zestril] 5 mg PO DAILY@0800 06/11/19 06/11/19 Nystatin 100,000 Unit/gm Powd 1 applic TOPICAL BID@08,199906/11/19 06/11/19 [Mycostatin Powder] Allergies Allergy/AdvReac Type Severity Reaction Status Date / Time lithium Allergy Unknown Verified 06/11/19 13:18 Review of Systems ROS Statement: Those systems with pertinent positive or pertinent negative responses have been documented in the HPI. ROS Other: All systems not noted in ROS Statement are negative. Past Medical History Past Medical History: Cancer, Diabetes Mellitus, Hyperlipidemia, Hypertension, Myocardial Infarction ([place]) Additional Past Medical History / Comment(s): Mental handicap-approx capacity at age 9.,bladder Ca approx 2013,elevated potassium Last Myocardial Infarction Date:: 2009 History of Any Multi-Drug Resistant Organisms: None Reported Past Surgical History: Heart Catheterization With Stent Additional Past Surgical History / Comment(s): bladder tumors removed; Cataract R eye, stent place in pancreatic duct Past Anesthesia/Blood Transfusion Reactions: No Reported Reaction Date of Last Stent Placement:: 2009 Past Psychological History: No Psychological Hx Reported Smoking Status: Never smoker Past Alcohol Use History: None Reported Past Drug Use History: None Reported - Past Family History Father Family Medical History: Cancer Additional Family Medical History / Comment(s): lung Mother Family Medical History: COPD Additional Family Medical History / Comment(s): bowel surgeries General Exam - General Exam Comments Initial Comments: This is a well-developed well-nourished awake alert male who is pleasantly confused Limitations: altered mental status General appearance: alert, in no apparent distress Head exam: Present: atraumatic, normocephalic, normal inspection Eye exam: Present: normal appearance, PERRL, EOMI. Absent: scleral icterus, conjunctival injection, periorbital swelling ENT exam: Present: mucous membranes dry Neck exam: Present: normal inspection. Absent: tenderness, meningismus, lymphadenopathy Respiratory exam: Present: normal lung sounds bilaterally. Absent: respiratory distress, wheezes, rales, rhonchi, stridor Cardiovascular Exam: Present: regular rate, normal rhythm, normal heart sounds. Absent: systolic murmur, diastolic murmur, rubs, gallop, clicks GI/Abdominal exam: Present: soft, normal bowel sounds. Absent: distended, tenderness, guarding, rebound, rigid Extremities exam: Present: normal inspection, full ROM, normal capillary refill. Absent: tenderness, pedal edema, joint swelling, calf tenderness Back exam: Present: normal inspection Neurological exam: Present: alert, altered, CN II-XII intact Psychiatric exam: Present: normal affect, normal mood Skin exam: Present: warm, dry, intact, normal color. Absent: rash Course Vital Signs 06/11/19 06/11/19 06/11/19 12:02 13:04 14:00 Temperature 92.5 F L Pulse Rate 60 Respiratory 18 16 20 Rate Blood Pressure 122/73 137/71 O2 Sat by Pulse 96 95 Oximetry 06/11/19 15:01 Temperature 96.5 F L Pulse Rate 66 Respiratory 16 Rate Blood Pressure 116/66 O2 Sat by Pulse 98 Oximetry Medical Decision Making - Medical Decision Making Patient was reevaluated by me and several occasions he did have evidence of hypothermia and this did resolve after warming the patient. Lab work and imaging shows evidence of pulmonary infiltrates he will be admitted I discuss case Dr. Sloan who did come the emergency department. I also did discuss the case with Dr. Acharya. Into a medical floor for further evaluation. He is hemodynamically stable. Lactic acid is within normal limits influenza is negative. Patient is demonstrated evidence of I'm depletion and renal azotemia. - Lab Data Result diagrams: 06/11/19 12:15 06/11/19 12:15 Lab Results 06/11/19 06/11/19 06/11/19 Range/Units 12:15 12:15 12:15 WBC 3.1 L (3.8-10.6) k/uL RBC 2.74 L (4.30-5.90) m/uL Hgb 9.1 L (13.0-17.5) gm/dL Hct 29.5 L (39.0-53.0) % MCV 107.7 H (80.0-100.0) fL MCH 33.4 (25.0-35.0) pg MCHC 31.0 (31.0-37.0) g/dL RDW 16.3 H (11.5-15.5) % Plt Count 33 L (150-450) k/uL Neutrophils % 71 % Lymphocytes % 19 % Monocytes % 5 % Eosinophils % 1 % Basophils % 1 % Neutrophils # 2.2 (1.3-7.7) k/uL Lymphocytes # 0.6 L (1.0-4.8) k/uL Monocytes # 0.2 (0-1.0) k/uL Eosinophils # 0.0 (0-0.7) k/uL Basophils # 0.0 (0-0.2) k/uL Hypochromasia Moderate Poikilocytosis Slight Anisocytosis Slight Macrocytosis Marked A Sodium 144 (137-145) mmol/L Potassium 4.4 (3.5-5.1) mmol/L Chloride 108 H (98-107) mmol/L Carbon Dioxide 29 (22-30) mmol/L Anion Gap 7 mmol/L BUN 41 H (9-20) mg/dL Creatinine 1.62 H (0.66-1.25) mg/dL Est GFR (CKD-EPI)AfAm 47 (>60 ml/min/1.73 sqM) Est GFR (CKD-EPI)NonAf 40 (>60 ml/min/1.73 sqM) Glucose 173 H (74-99) mg/dL Plasma Lactic Acid Alejandro 1.2 (0.7-2.0) mmol/L Calcium 8.6 (8.4-10.2) mg/dL Magnesium 1.8 (1.6-2.3) mg/dL Total Bilirubin 0.4 (0.2-1.3) mg/dL AST 23 (17-59) U/L ALT 27 (21-72) U/L Alkaline Phosphatase 176 H (38-126) U/L Creatine Kinase <20 L (55-170) U/L Total Protein 5.5 L (6.3-8.2) g/dL Albumin 2.6 L (3.5-5.0) g/dL Urine Color Urine Appearance (Clear) Urine pH (5.0-8.0) Ur Specific [place] (1.001-1.035) Urine Protein (Negative) Urine Glucose (UA) (Negative) Urine Ketones (Negative) Urine Blood (Negative) Urine Nitrite (Negative) Urine Bilirubin (Negative) Urine Urobilinogen (<2.0) mg/dL Ur Leukocyte Esterase (Negative) Urine RBC (0-5) /hpf Urine WBC (0-5) /hpf Urine Bacteria (None) /hpf Hyaline Casts (0-2) /lpf Urine Mucus (None) /hpf Influenza Type A RNA (Not Detectd) Influenza Type B (PCR) (Not Detectd) 06/11/19 06/11/19 Range/Units 12:20 15:45 WBC (3.8-10.6) k/uL RBC (4.30-5.90) m/uL Hgb (13.0-17.5) gm/dL Hct (39.0-53.0) % MCV (80.0-100.0) fL MCH (25.0-35.0) pg MCHC (31.0-37.0) g/dL RDW (11.5-15.5) % Plt Count (150-450) k/uL Neutrophils % % Lymphocytes % % Monocytes % % Eosinophils % % Basophils % % Neutrophils # (1.3-7.7) k/uL Lymphocytes # (1.0-4.8) k/uL Monocytes # (0-1.0) k/uL Eosinophils # (0-0.7) k/uL Basophils # (0-0.2) k/uL Hypochromasia Poikilocytosis Anisocytosis Macrocytosis Sodium (137-145) mmol/L Potassium (3.5-5.1) mmol/L Chloride (98-107) mmol/L Carbon Dioxide (22-30) mmol/L Anion Gap mmol/L BUN (9-20) mg/dL Creatinine (0.66-1.25) mg/dL Est GFR (CKD-EPI)AfAm (>60 ml/min/1.73 sqM) Est GFR (CKD-EPI)NonAf (>60 ml/min/1.73 sqM) Glucose (74-99) mg/dL Plasma Lactic Acid Alejandro (0.7-2.0) mmol/L Calcium (8.4-10.2) mg/dL Magnesium (1.6-2.3) mg/dL Total Bilirubin (0.2-1.3) mg/dL AST (17-59) U/L ALT (21-72) U/L Alkaline Phosphatase (38-126) U/L Creatine Kinase (55-170) U/L Total Protein (6.3-8.2) g/dL Albumin (3.5-5.0) g/dL Urine Color Light Yellow Urine Appearance Clear (Clear) Urine pH 5.0 (5.0-8.0) Ur Specific [place] 1.007 (1.001-1.035) Urine Protein Negative (Negative) Urine Glucose (UA) Negative (Negative) Urine Ketones Negative (Negative) Urine Blood Negative (Negative) Urine Nitrite Negative (Negative) Urine Bilirubin Negative (Negative) Urine Urobilinogen <2.0 (<2.0) mg/dL Ur Leukocyte Esterase Trace H (Negative) Urine RBC 1 (0-5) /hpf Urine WBC 4 (0-5) /hpf Urine Bacteria Rare H (None) /hpf Hyaline Casts 8 H (0-2) /lpf Urine Mucus Rare H (None) /hpf Influenza Type A RNA Not Detected (Not Detectd) Influenza Type B (PCR) Not Detected (Not Detectd) - Radiology Data Radiology results: report reviewed (I did review the imaging and report no acute findings.), image reviewed Disposition Clinical Impression: Pneumonia, Dehydration, Prerenal azotemia, Hypothermia Disposition: ADMITTED IP TO THIS HOSP Condition: Fair Referrals: Corinna Barrera III, MD [Primary Care Provider] - 1-2 days
[2019-06-11 12:31] LABS: Anisocytosis Slight; Basophils % (A) 1 %; Eosinophils % (A) 1 %; HCT 29.5 % (39.0-53.0); HGB 9.1 gm/dL (13.0-17.5); Hypochromasia Moderate; Lymphocytes # (A) 0.6 k/uL (1.0-4.8); Lymphocytes % (A) 19 %; MCH 33.4 pg (25.0-35.0); MCV 107.7 fL (80.0-100.0); Macrocytosis Marked; Mean Platelet Volume 9.4; Monocytes # (A) 0.2 k/uL (0-1.0); Monocytes % (A) 5 %; Neutrophils # (A) 2.2 k/uL (1.3-7.7); Neutrophils % (A) 71 %; Poikilocytosis Slight; RBC 2.74 m/uL (4.30-5.90); RDW 16.3 % (11.5-15.5); WBC 3.1 k/uL (3.8-10.6)
[2019-06-11 12:32] LABS: Platelet Count 33 k/uL (150-450)
[2019-06-11 12:42] LABS: ALT 27 U/L (21-72); AST 23 U/L (17-59); African American GFR (CKD) 47 (>60 ml/min/1.73 sqM); Albumin 2.6 g/dL (3.5-5.0); Alkaline Phosphatase 176 U/L (38-126); Anion Gap 7 mmol/L; Blood Urea Nitrogen 41 mg/dL (9-20); Calcium 8.6 mg/dL (8.4-10.2); Carbon Dioxide 29 mmol/L (22-30); Chloride 108 mmol/L (98-107); Creatine Kinase <20 U/L (55-170); Glucose 173 mg/dL (74-99); Magnesium 1.8 mg/dL (1.6-2.3); Potassium 4.4 mmol/L (3.5-5.1); Sodium 144 mmol/L (137-145); Total Bilirubin 0.4 mg/dL (0.2-1.3); Total Protein 5.5 g/dL (6.3-8.2)
--- NOTE | 2019-06-11 12:51 | XR ---
EXAMINATION TYPE: XR chest 2V DATE OF EXAM: 06/11/2019 HISTORY: Altered mental status. REFERENCE: Previous study dated 05/02/2019. FINDINGS: There continues to be a right lower lobe infiltrate. There may be a minimal left lower lobe infiltrate. The heart is not enlarged. There are tiny, bilateral effusions. IMPRESSION: 1. CONTINUING BIBASILAR INFILTRATES, WORSE ON THE RIGHT THAN THE LEFT. 2. SMALL, BILATERAL EFFUSIONS.
[2019-06-11 13:19] LABS: Appearance,Urine Clear (Clear); Bacteria,Urine Rare /hpf; Bilirubin,Urine Negative (Negative); Blood,Urine Negative (Negative); Color,Urine Light Yellow; Glucose,Urine (UA) Negative (Negative); Hyaline Casts,Urine 8 /lpf (0-2); Ketones,Urine Negative (Negative); Leukocyte Esterase,Urine Trace (Negative); Mucus,Urine Rare /hpf; Nitrite,Urine Negative (Negative); Protein,Urine Negative (Negative); RBC,Urine 1 /hpf (0-5); Specific Gravity,Urine 1.007 (1.001-1.035); Urobilinogen,Urine <2.0 mg/dL (<2.0)
[2019-06-11] MEDS ORDERED: cefTRIAXone IN SWFI 1,000 MG/10 ML SYRINGE IVP STA (15:17)
[2019-06-11] MEDS ORDERED: PNEUMONIA PROTOCOL UTILIZED 1 EACH MISC PO PRN (16:36)
[2019-06-11] MEDS ORDERED: AZITHROMYCIN 500 MG in SODIUM CHLORIDE 0.9% 250 ML IVPB STA (16:36)
[2019-06-11] MEDS ORDERED: POLYETHYLENE GLYCOL 3350 17 GM POWD.PACK PO PRN (16:40)
[2019-06-11] MEDS ORDERED: SENNOSIDES 8.6 MG TAB PO PRN (16:40)
[2019-06-11] MEDS ORDERED: VANCOMYCIN IV PER PHARMACY 1 EACH MISC MISCELLANE PRN (17:06)
[2019-06-11] MEDS: SODIUM CHLORIDE 0.9% 1,000 ML IV SCH (17:10)
[2019-06-11] MEDS ORDERED: VANCOMYCIN 1,000 MG in SODIUM CHLORIDE 0.9% 250 ML IVPB ONE (17:30)
[2019-06-11] MEDS: INSULIN ASPART (NovoLOG) 100 UNIT/ML VIAL SQ SCH ×3 (18:28→20:29)
[2019-06-11 18:29] LABS: Glucose,Whole Blood 124 mg/dL (75-99)
--- NOTE | 2019-06-11 18:32 | HP ---
HISTORY AND PHYSICAL CHIEF COMPLAINT: UTI. HISTORY OF PRESENT ILLNESS: This 79-year-old gentleman with a past medical history of multiple medical problems, including diabetes mellitus, hypertension, hyperlipidemia, history of myocardial infarction, history of mental handicap and history of CAD, stent, being followed by Dr. Barrera in the outpatient setting, was recently admitted to [facility] with complaints of bilateral leg swelling and cellulitis with failure of outpatient treatment with acute hypoxic respiratory failure which was thought to be multifactorial; a combination of CHF and aspiration pneumonia. The patient improved significantly and subsequently patient was sent to [facility] home. But in the [facility] home the patient was evaluated for UTI and the patient also showed some decreased level of activity and consciousness and some shortness of breath. The patient was taken to [facility] and admitted for further evaluation and treatment. There is no history of any fever, rigors, chills. No history of headache, loss of consciousness, seizures. A complete history cannot be obtained from the patient. Most of the history is taken from my discussion with staff and ER physician and review of the chart. The patient was found to be hypothermic at 92 degrees. A warming blanket has been applied. PAST MEDICAL HISTORY: 1. History of bladder cancer. 2. History of hypertension. 3. Hyperlipidemia. 4. Diabetes mellitus, type 2. 5. History of myocardial infarction. HOME MEDICATIONS: 1. Senna 17.2 mg at bedtime. 2. MiraLAX 3350. 17 grams daily. 3. Vitamin D3 2000 daily. 4. ProAir HFA 2 puffs t.i.d. 5. Ursodiol 300 mg before meals t.i.d. 6. Flomax 0.4 daily. 7. Protonix 40 mg p.o. daily. 8. Probiotic 1 p.o. daily. 9. Vitamin B12 1000 mcg p.o. daily. 10.Mycostatin 1 application b.i.d. 11.NovoLog FlexPen 5 units subcutaneously t.i.d. 12.Procardia XL 30 mg p.o. daily. 13.Zestril 5 mg p.o. daily. 14.Synthroid 50 mg p.o. daily. 15.Glucerna 1 can p.o. b.i.d. 16.Lasix 40 mg p.o. daily. 17.Iron 325 mg p.o. b.i.d. 18.Depakote ER 1000 mg p.o. daily. 19.Cipro 500 mg p.o. b.i.d. 20.Rocaltrol 0.25 mg q.48 hours. ALLERGIES: LITHIUM. Family history, social history, review of systems could not be taken because of the patient's change in mental status. Per chart, no history of smoking or alcohol intake. PHYSICAL EXAMINATION: Patient is conscious but mildly confused. Pulse 66, blood pressure 116/66, respirations 16, temperature 96.5, pulse ox 98% on room air. HEENT: Conjunctivae normal. Oral mucosa dry. NECK: No jugular venous distention. No carotid bruit. No lymph node enlargement. CARDIOVASCULAR SYSTEM: S1, S2 muffled. No S3. No S4. RESPIRATORY SYSTEM: Breath sounds diminished at the bases. A few scattered rhonchi. No crackles. ABDOMEN: Soft, non-tender. No mass palpable. LEGS: No edema. No swelling. NERVOUS SYSTEM: Higher functions as mentioned earlier. Moves all 4 limbs. Mild diffuse weakness. LYMPHATICS: No lymph node palpable in neck, axillae or groin. SKIN: No ulcer, rash, bleeding. JOINTS: No active deforming arthropathy. LABS/IMAGING: Labs at this time show WBC 3.1, hemoglobin 9.1, platelets 33. Sodium 144, potassium 4.4, creatinine 1.62. Other labs are noted. Influenza is negative. The chest x-ray findings are personally reviewed and show some evidence of bibasilar infiltrate, worse on the right than on the left. Small bilateral pleural effusions, also. ASSESSMENT: 1. Bilateral pneumonia, right more than the left, possibly aspiration, possibly hospital-acquired, with early sepsis, present on admission. 2. Small bilateral pleural effusions. 3. Change in mental status, metabolic encephalopathy, acute on chronic. 4. Mental handicap. 5. Mild pancytopenia of undetermined origin. 6. Increased creatinine with possibly chronic kidney disease, stage III. 7. History of recent leg cellulitis. 8. History of recent acute hypoxic respiratory failure secondary to congestive heart failure, acute exacerbation, with acute on chronic systolic dysfunction as well as aspiration pneumonia. 9. Diabetes mellitus, type 2. 10.Hypertension. 11.Hyperlipidemia. 12.History of myocardial infarction. 13.Antimitochondrial antibody positive recently. 14.History of coronary artery disease, stent. 15.History of bladder tumor. 16.History of cataracts. 17.Remote history of nicotine dependence. 18.FULL CODE. RECOMMENDATIONS AND DISCUSSION: In this 79-year-old gentleman who presented with multiple medical issues, we will monitor the patient closely, continue the current medications, continue with symptomatic treatment. I recommend consultation with Pulmonary. I would also recommend broad-spectrum IV antibiotics in the form of Zosyn and vancomycin because of concerns about recent hospitalization. I would recommend infectious disease consultation with Dr. Lott as well. Prognosis is guarded because of multiple complex medical issues. Further recommendations to follow. A copy of this dictation is being forwarded to Dr. Barrera, who is the primary physician. MMODL / IJN: [id number] /
[2019-06-11] MEDS: ALBUTEROL NEBULIZED 2.5 MG/3 ML INHALATION SCH (20:08)
[2019-06-11 20:12] LABS: Glucose,Whole Blood 189 mg/dL (75-99)
[2019-06-11] MEDS: PIPERACILLIN-TAZOBACTAM 3.375 GM in SODIUM CHLORIDE 0.9% 100 ML IVPB SCH (20:12)
[2019-06-11] MEDS: NYSTATIN 100,000 UNIT/GM POWD 15 GM TOPICAL SCH ×2 (20:21→20:22)
[2019-06-11] MEDS: URSODIOL 300 MG CAP PO SCH (20:22)
[2019-06-11] MEDS: FERROUS SULFATE 325 MG TAB PO SCH (20:27)
[2019-06-11] MEDS: HEPARIN SODIUM,PORCINE 5,000 UNIT/ML 1 ML VIAL SQ SCH (20:28)
[2019-06-11] MEDS ORDERED: NON FORMULARY DRUG (Glucerna Shake 1 CAN) PO SCH (21:00)
[2019-06-12] MEDS: SODIUM CHLORIDE 0.9% 1,000 ML IV SCH ×2 (00:23→14:49)
[2019-06-12] MEDS: PIPERACILLIN-TAZOBACTAM 3.375 GM in SODIUM CHLORIDE 0.9% 100 ML IVPB SCH ×2 (01:13→10:54)
[2019-06-12] MEDS ORDERED: VANCOMYCIN 1,000 MG in SODIUM CHLORIDE 0.9% 250 ML IVPB SCH (06:00)
[2019-06-12 07:25] LABS: Glucose,Whole Blood 192 mg/dL (75-99)
--- NOTE | 2019-06-12 07:29 | XR ---
EXAMINATION TYPE: XR chest 1V portable DATE OF EXAM: 06/12/2019 HISTORY: poss fluid overload. REFERENCE: Previous study dated 06/11/2019. FINDINGS: There is worsening bibasilar infiltrates. Pulmonary vasculature is within normal limits. He art size upper limits of normal. There is blunting of both CP angles and I could not exclude small ef fusions. IMPRESSION: WORSENING BIBASILAR AIRSPACE DISEASE.
[2019-06-12] MEDS: PANTOPRAZOLE 40 MG TABLET PO SCH (08:02)
[2019-06-12] MEDS: FUROSEMIDE 40 MG TAB PO SCH (08:02)
[2019-06-12] MEDS: FERROUS SULFATE 325 MG TAB PO SCH ×2 (08:02→20:17)
[2019-06-12] MEDS: URSODIOL 300 MG CAP PO SCH ×3 (08:02→17:40)
[2019-06-12] MEDS: TAMSULOSIN 0.4 MG CAP.ER.24H PO SCH (08:02)
[2019-06-12] MEDS: LEVOTHYROXINE 50 MCG TAB PO SCH (08:02)
[2019-06-12] MEDS: LISINOPRIL 5 MG TAB PO SCH (08:02)
[2019-06-12] MEDS: CHOLECALCIFEROL 1,000 UNIT TAB PO SCH (08:03)
[2019-06-12] MEDS: INSULIN ASPART (NovoLOG) 100 UNIT/ML VIAL SQ SCH ×7 (08:03→20:18)
[2019-06-12] MEDS: HEPARIN SODIUM,PORCINE 5,000 UNIT/ML 1 ML VIAL SQ SCH ×2 (08:03→20:17)
[2019-06-12] MEDS: CYANOCOBALAMIN 500 MCG TAB PO SCH (08:03)
[2019-06-12] MEDS ORDERED: ACETAMINOPHEN TAB 325 MG TAB PO PRN (08:14)
[2019-06-12 08:24] LABS: Anisocytosis Slight; Basophils % (A) 0 %; Eosinophils % (A) 1 %; HCT 26.3 % (39.0-53.0); HGB 7.8 gm/dL (13.0-17.5); Hypochromasia Marked; Lymphocytes # (A) 0.6 k/uL (1.0-4.8); Lymphocytes % (A) 18 %; MCH 33.5 pg (25.0-35.0); MCHC 29.6 g/dL (31.0-37.0); Macrocytosis Marked; Mean Platelet Volume 9.2; Monocytes # (A) 0.2 k/uL (0-1.0); Monocytes % (A) 6 %; Neutrophils # (A) 2.2 k/uL (1.3-7.7); Neutrophils % (A) 73 %; RBC 2.32 m/uL (4.30-5.90); RDW 16.2 % (11.5-15.5); WBC 3.1 k/uL (3.8-10.6)
[2019-06-12 08:27] LABS: Potassium 4.3 mmol/L (3.5-5.1)
[2019-06-12 08:51] LABS: MCV 113.1 fL (80.0-100.0); Platelet Count 26 k/uL (150-450)
[2019-06-12] MEDS: ALBUTEROL NEBULIZED 2.5 MG/3 ML INHALATION SCH ×3 (08:57→19:31)
[2019-06-12] MEDS: NIFEdipine XL 30 MG TAB.ER.24 PO SCH (09:12)
[2019-06-12] MEDS: LACTOBACILLUS ACIDOPH & BULGAR 1 EACH PACKET PO SCH (09:12)
[2019-06-12] MEDS: CALCITRIOL 0.25 MCG CAP PO SCH (09:12)
[2019-06-12] MEDS: DIVALPROEX ER 500 MG TAB.ER.24H PO SCH (09:13)
[2019-06-12 10:59] LABS: Glucose,Whole Blood 68 mg/dL (75-99)
[2019-06-12 11:26] LABS: Glucose,Whole Blood 41 mg/dL (75-99)
[2019-06-12] MEDS ORDERED: FUROSEMIDE 10 MG/ML 4 ML VIAL IV STA (11:28)
[2019-06-12 11:36] LABS: Glucose,Whole Blood 51 mg/dL (75-99)
[2019-06-12 11:59] LABS: Glucose,Whole Blood 97 mg/dL (75-99)
--- NOTE | 2019-06-12 14:49 | P.CNPUL ---
History of Present Illness Consult date: 06/12/19 Reason for consult: dyspnea, pneumonia History of present illness: This is a 79-year-old male patient with known history of developmental delay who is known to me from previous hospitalization. The patient lives in a fpc and he got transferred again to our hospital for increased confusion, unable to obtain a temperature at home, cough and congestion. He came into the ED and the patient was given a chest x-ray when he was found to have some limited bibasilar pulmonary infiltrates and for that reason he was admitted to the hospital. Currently is on oxygen at 2 L per minute nasal cannula. No chest pain. He is more interactive today. He was seen by ID and he was placed on IV Merrem. During his last evaluation from April 2019, I have non-a swallow evaluation of this patient and the patient was found to have repeated transient penetration with thin consistency with and without a straw and bev aspiration likely from residuals without eliciting a cough reflex. during his earlier hospitalization, I saw this patient in the intensive care unit for sepsis. At that time he was having some swelling and erythema in his lower extremities and he was treated for lower extremity cellulitis and aspiration pneumonia left more than right. His comorbidities include diabetes mellitus type 2, stage III kidney disease, previous history of biliary cirrhosis with biopsy and chronic cholestasis and he has undergone a pancreatic stent insertion, hypertension, hyperlipidemia, CAD and previous [place], mentally handicapped and developmental delay, CAD and stenting, bladder tumor and previous history of smoking. He has a full CODE STATUS. Review of Systems Constitutional: Denies chills, Denies fever Eyes: denies blurred vision, denies pain Ears, nose, mouth and throat: Denies headache, Denies sore throat Cardiovascular: Denies chest pain, limited worsening shortness of breath Respiratory: Reports dyspnea, increased cough and congestion and possible aspiration Gastrointestinal: Denies abdominal pain, Denies diarrhea, Denies nausea, Denies vomiting, suspicious for aspiration Musculoskeletal: Denies myalgias Integumentary: Denies pruritus, Denies rash Neurological: Denies numbness, Denies weakness, developmental delay and the patient has been mentally challenged with a low IQ Psychiatric: Denies anxiety, Denies depression Endocrine: Denies fatigue, Denies weight change Past Medical History Past Medical History: Cancer, Diabetes Mellitus, Hyperlipidemia, Hypertension, Myocardial Infarction ([place]) Additional Past Medical History / Comment(s): Mental handicap-approx capacity at age 9.,bladder Ca approx 2013,elevated potassium Last Myocardial Infarction Date:: 2009 History of Any Multi-Drug Resistant Organisms: None Reported Past Surgical History: Heart Catheterization With Stent Additional Past Surgical History / Comment(s): bladder tumors removed; Cataract R eye, stent place in pancreatic duct Past Anesthesia/Blood Transfusion Reactions: No Reported Reaction Date of Last Stent Placement:: 2009 Past Psychological History: No Psychological Hx Reported Additional Psychological History / Comment(s): mentally handicapped Smoking Status: Never smoker Past Alcohol Use History: None Reported Additional Past Alcohol Use History / Comment(s): quit smoking 2009,1ppd Past Drug Use History: None Reported - Past Family History Father Family Medical History: Cancer Additional Family Medical History / Comment(s): lung Mother Family Medical History: COPD Additional Family Medical History / Comment(s): bowel surgeries Medications and Allergies Home Medications Medication Instructions Recorded Confirmed Type Calcitriol [Rocaltrol] 0.25 mcg PO Q48H 12/29/16 06/11/19 History Cholecalciferol [Vitamin D3 (25 2,000 unit PO DAILY@0800 12/29/16 06/11/19 History Mcg = 1000 Iu)] Ferrous Sulfate [Iron (65 MG 325 mg PO BID@0800,2100 12/29/16 06/11/19 History Elemental)] Tamsulosin [Flomax] 0.4 mg PO DAILY@0800 12/29/16 06/11/19 History Divalproex Sodium [Divalproex 1,000 mg PO DAILY@0800 03/19/19 06/11/19 History Sodium ER] Insulin Aspart [NovoLOG Flexpen] 5 units SQ PC-TID 03/19/19 06/11/19 History Polyethylene Glycol 3350 [Miralax] 17 gm PO DAILY PRN 03/19/19 06/11/19 History Sennosides [Senna] 17.2 mg PO HS PRN 03/19/19 06/11/19 History Cyanocobalamin (Vitamin B-12) 1,000 mcg PO DAILY 04/03/19 06/11/19 History [Vitamin B-12] Albuterol Sulfate [Proair Hfa] 2 puff INHALATION RT-TID PRN 05/28/19 06/11/19 History Glucerna Shake 1 can PO BID@0900,2100 05/28/19 06/11/19 History L.acidoph,Paracasei, B.lactis 1 cap PO DAILY@0800 05/28/19 06/11/19 History [Probiotic] NIFEdipine XL [Procardia Xl] 30 mg PO DAILY@0800 05/28/19 06/11/19 History Pantoprazole [Protonix] 40 mg PO DAILY@0730 05/28/19 06/11/19 History Ursodiol 300 mg PO AC-TID 05/28/19 06/11/19 History Ciprofloxacin HCl [Cipro] 500 mg PO BID@0800,199906/11/19 06/11/19 History Furosemide [Lasix] 40 mg PO DAILY@0800 06/11/19 06/11/19 History Levothyroxine Sodium [Synthroid] 50 mcg PO DAILY@0830 06/11/19 06/11/19 History Lisinopril [Zestril] 5 mg PO DAILY@0800 06/11/19 06/11/19 History Nystatin 100,000 Unit/gm Powd 1 applic TOPICAL BID@0800,199906/11/19 06/11/19 History [Mycostatin Powder] Allergies Allergy/AdvReac Type Severity Reaction Status Date / Time lithium Allergy Unknown Verified 06/11/19 13:18 Physical Exam Vitals: Vital Signs Temp Pulse Pulse Resp BP BP Pulse Ox 06/12/19 11:10 95 06/12/19 11:05 97.6 F 69 22 118/62 90 L 06/12/19 09:07 69 06/12/19 09:01 97 06/12/19 08:59 66 06/12/19 08:05 98.6 F 06/12/19 08:00 98 F 06/12/19 05:00 98.3 F 74 16 126/67 93 L 06/12/19 00:23 62 18 06/11/19 21:43 97.3 F L 62 16 98/58 93 L 06/11/19 18:27 97.4 F L 64 18 131/68 94 L 06/11/19 17:07 96.1 F L 54 L 18 107/70 97 06/11/19 16:00 56 L 18 137/82 98 06/11/19 15:01 96.5 F L 66 16 116/66 98 Intake and Output 06/11/19 06/12/19 06/12/19 22:59 06:59 14:59 Intake Total 550 590 Output Total 700 500 Balance -150 90 Intake: Intake, IV Titration 550 Amount Piperacillin-Tazobactam 3 100 .375 gm In Sodium Chloride 0.9% 100 ml @ 25 mls/hr IVPB Q8H [facility] Rx#: [id number] Sodium Chloride 0.9% 1, 200 000 ml @ 100 mls/hr IV . Q10H [facility] Rx#:[id number] Vancomycin 1,000 mg In 250 Sodium Chloride 0.9% 250 ml @ 125 mls/hr IVPB Q24H [facility] Rx#:[id number] Oral 590 Output: Urine 700 500 Uretheral (Romero) 500 Other: Voiding Method Indwelling Catheter Indwelling Catheter # Voids 1 # Bowel Movements 1 1 GENERAL EXAM: Alert, pleasant, 79-year-old white male, currently on 2 L of oxygen with a pulse ox of 91% comfortable in no apparent distress. HEAD: Normocephalic/atraumatic. EYES: Normal reaction of pupils, equal size. Conjunctiva pink, sclera white. NOSE: Clear with pink turbinates. THROAT: No erythema or exudates. NECK: No masses, no JVD, no thyroid enlargement, no adenopathy. CHEST: No chest wall deformity. Symmetrical expansion. LUNGS: Equal air entry with bilateral lower lobe crackles over posterior lower bases CVS: Regular rate and rhythm, normal S1 and S2, no gallops, no murmurs, no rubs ABDOMEN: Soft, nontender. No hepatosplenomegaly, normal bowel sounds, no guarding or rigidity. EXTREMITIES: No clubbing, no edema, no cyanosis, 2+ pulses and upper and lower extremities. MUSCULOSKELETAL: Muscle strength and tone normal. SPINE: No scoliosis or deformity SKIN: No rashes CENTRAL NERVOUS SYSTEM: Alert and oriented -3. No focal deficits, tone is normal in all 4 extremities. PSYCHIATRIC: Alert and oriented -3. Appropriate affect. Intact judgment and insight. Results - Laboratory Findings CBC and BMP: 06/12/19 07:38 06/12/19 07:38 Abnormal lab findings: Abnormal Labs 06/11/19 06/11/19 06/11/19 12:15 12:15 12:20 WBC 3.1 L RBC 2.74 L Hgb 9.1 L Hct 29.5 L MCV 107.7 H MCHC RDW 16.3 H Plt Count 33 L Lymphocytes # 0.6 L Macrocytosis Marked A Chloride 108 H BUN 41 H Creatinine 1.62 H Glucose 173 H POC Glucose (mg/dL) Calcium Alkaline Phosphatase 176 H Creatine Kinase <20 L Total Protein 5.5 L Albumin 2.6 L Ur Leukocyte Esterase Trace H Urine Bacteria Rare H Hyaline Casts 8 H Urine Mucus Rare H 06/11/19 06/11/19 06/12/19 18:08 20:11 07:23 WBC RBC Hgb Hct MCV MCHC RDW Plt Count Lymphocytes # Macrocytosis Chloride BUN Creatinine Glucose POC Glucose (mg/dL) 124 H 189 H 192 H Calcium Alkaline Phosphatase Creatine Kinase Total Protein Albumin Ur Leukocyte Esterase Urine Bacteria Hyaline Casts Urine Mucus 06/12/19 06/12/19 06/12/19 07:38 07:38 10:57 WBC 3.1 L RBC 2.32 L Hgb 7.8 L Hct 26.3 L MCV 113.1 H D MCHC 29.6 L RDW 16.2 H Plt Count 26 L Lymphocytes # 0.6 L Macrocytosis Marked A Chloride 111 H BUN 37 H Creatinine 1.71 H Glucose 172 H POC Glucose (mg/dL) 68 L Calcium 8.0 L Alkaline Phosphatase Creatine Kinase Total Protein Albumin Ur Leukocyte Esterase Urine Bacteria Hyaline Casts Urine Mucus 06/12/19 06/12/19 11:19 11:34 WBC RBC Hgb Hct MCV MCHC RDW Plt Count Lymphocytes # Macrocytosis Chloride BUN Creatinine Glucose POC Glucose (mg/dL) 41 L 51 L Calcium Alkaline Phosphatase Creatine Kinase Total Protein Albumin Ur Leukocyte Esterase Urine Bacteria Hyaline Casts Urine Mucus - Diagnostic Findings Chest x-ray: image reviewed Assessment and Plan Plan: 1 acute hypoxic respiratory failure with limited infiltration of the lung bases, suspected recurrent aspiration. Please refer to the most recent swallow evaluation. In my opinion, this patient carries an increased risk of having recurrent aspirations and currently is presenting for an episode. I think swallow evaluation is to be repeated and reevaluated. He is currently on IV Merrem. 2 Bilateral leg swelling and cellulitis was treated during emotion hospitalization 3 session heart failure, chronic 4 Diabetes mellitus type 2 with hypoglycemia, uncontrolled 5 chronic kidney disease stage III 6 Mild pancytopenia of undetermined etiology 6 Recent liver biopsy for rule out primary biliary cirrhosis, biopsy shows chronic cholecystatic changes initial report of the liver biopsy 7 Hypertension 8 Hyperlipidemia 9 History of myocardial infarction 10 History of mentally handicapped 11 Anti-mitochondrial antibody positive previously, recently 12 History of coronary artery disease/stent 13 History of bladder tumor 14 History of cataracts 15 Remote history of nicotine dependence plan Suggest repeating swallow evaluation a.m. Aspiration precautions. IV Merrem. Pulmonary toileting. Deep breathing. Oxygen therapy at 2 L. add DuoNeb nebulized she was 4 times a day. Wean off FiO2 as tolerated to maintain a satu ration above 90%. We'll follow.
[2019-06-12] MEDS ORDERED: DEXTROSE 5% IN WATER 1,000 ML IV SCH (15:15)
[2019-06-12] MEDS: MEROPENEM 1 GM in SODIUM CHLORIDE 0.9% 100 ML IVPB SCH (15:39)
[2019-06-12] MEDS ORDERED: AZITHROMYCIN 500 MG TAB PO SCH (17:00)
[2019-06-12 17:07] LABS: Glucose,Whole Blood 186 mg/dL (75-99)
[2019-06-12] MEDS: NYSTATIN 100,000 UNIT/GM POWD 15 GM TOPICAL SCH (19:56)
[2019-06-12 20:05] LABS: Glucose,Whole Blood 220 mg/dL (75-99)
--- NOTE | 2019-06-12 20:36 | PN ---
PROGRESS NOTE . DATE OF SERVICE: 06/12/2019 This 79-year-old gentleman who was admitted with bilateral pneumonia, right more than the left with possibly aspiration also had features of UTI. Patient also had hypothermic and had features of sepsis. Patient being closely monitored at this time. After warm blankets and IV antibiotics, patient is feeling slightly better today. Dr. Acharya is following the patient closely. Per Dr. Acharya, the patient is at high risk of aspiration pneumonia. Repeat barium swallow has been suggested. PAST MEDICAL HISTORY: Reviewed. REVIEW OF SYSTEMS: CARDIOVASCULAR SYSTEM: No angina or palpitations. Respiration as mentioned earlier. GASTROINTESTINAL: As mentioned earlier. no dysuria. NERVOUS SYSTEM: No numbness or weakness. CURRENT MEDICATIONS: Reviewed and include: 1. Tylenol p.r.n. 2. Ventolin 2.5 t.i.d. 3. Rocaltrol 0.25 mg Q 48 hours. 4. Vitamin D3. 5. Vitamin B12 1000 mg. 6. Depakote ER 1000 mg. 7. Iron sulfate. 8. Lasix. 9. Heparin. 10.NovoLog. 11.Synthroid. 12.Zestril. 13.Meropenem 1 g IV b.i.d. 14.Procardia XL. 15.MiraLAX. 16.Senokot. 17.Flomax. PHYSICAL EXAM: Patient is alert, oriented x2. Pulse is 69, blood pressure 118/60, respiration 22, temperature 98.2, pulse ox 98% on 2 L. HEENT: Conjunctivae normal. NECK: No jugular venous distention. CARDIOVASCULAR: S1, S2 muffled. RESPIRATION: Breath sounds diminished in the bases. Bilateral scattered rhonchi and crackles. Expiratory wheezing also present. ABDOMEN: Soft, nontender. Legs are no edema. No swelling. CENTRAL NERVOUS SYSTEM: No focal deficits. LABS: WBC 3.1, hemoglobin 7.8, sodium 140, potassium 4.3, creatinine is 1.7. Accu- Cheks 68, 41 and 51. ASSESSMENT: 1. Bilateral pneumonia, right more the left, possibly aspiration, possibly hospital- acquired with early sepsis, present on admission. 2. Small bilateral pleural effusion. 3. Hypothermia, present on admission secondary to sepsis. 4. Change in mental status, metabolic encephalopathy, acute on chronic. 5. Mental handicap history. 6. Mild pancytopenia of undetermined origin. 7. Increased creatinine with possibly chronic kidney stage 3. 8. History of recent left leg cellulitis. 9. History of recent acute hypoxic respiratory failure secondary to congestive heart failure acute exacerbation, acute on chronic systolic dysfunction, as well as aspiration pneumonia. 10.Diabetes mellitus type 2. 11.Hypertension. 12.Hyperlipidemia. 13.History of myocardial infarction. 14.History of antimitochondrial antibody positive recently. 15.History of coronary artery disease, stent. 16.History of bladder tumor. 17.History of cataracts. 18.Remote history of nicotine dependence. 19.FULL CODE. RECOMMENDATIONS AND DISCUSSION: Recommend to continue current medications. Continue with monitoring. Continue broad spectrum IV antibiotics. Aspiration precautions as evaluation for swallow evaluation as mentioned earlier, otherwise I would also recommend an 8:00 am cortisol which was 18. I would also recommend D5 water to prevent hypoglycemia. Otherwise, continue to monitor. Guarded prognosis. Further recommendations to follow. MMJEANL / IJN: [id number] / MTDD
--- NOTE | 2019-06-12 21:48 | P.CONS ---
History of Present Illness - Reason for Consult Consult date: 06/12/19 - Chief Complaint Altered mental status - History of Present Illness This is a 79-year-old male who resides at [facility] with the legal guardian which is his brother. 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 Patient had a recent ERCP and stenting at [facility] with findings of chronic pancreatitis and pseudocyst biliary stricture. 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 There is very minimal portal inflammation with mild periportal fibrosis. It was thought that the alkaline phosphatase most likely secondary to vascular or cardiac compromise rather than biliary cause. Patient also has underlying history of bladder cancer with chronic Romero catheter, diabetes mellitus type 2, intellectual delay. On previous admission to this, patient was found to have Klebsiella oxytoca bacteremia and positive urinary tract infection. He was transferred to [facility] and most likely completed course of antibiotics for this. Klebsiella oxytoca sepsis susceptible to ceftriaxone. In the recent past, patient has been treated at the [facility] for cellulitis of the left lower extremity with Bactrim and this was improving. He now presents with some increasing weakness, increasing shortness of breath and there were concerns pneumonia. He has abnormal chest x-ray and because of his history of a consult was requested. If this time the patient is sitting upright eating his lunch without great difficulties but does have a moist cough at times. He is doing much discomforts. He however is incontinent of stool. Nursing is concerned about rash. Review of Systems ROS unobtainable: due to mental status Past Medical History Past Medical History: Cancer, Diabetes Mellitus, Hyperlipidemia, Hypertension, Myocardial Infarction ([place]) Additional Past Medical History / Comment(s): Mental handicap-approx capacity at age 9.,bladder Ca approx 2013,elevated potassium Last Myocardial Infarction Date:: 2009 History of Any Multi-Drug Resistant Organisms: None Reported Past Surgical History: Heart Catheterization With Stent Additional Past Surgical History / Comment(s): bladder tumors removed; Cataract R eye, stent place in pancreatic duct Past Anesthesia/Blood Transfusion Reactions: No Reported Reaction Date of Last Stent Placement:: 2009 Past Psychological History: No Psychological Hx Reported Additional Psychological History / Comment(s): mentally handicapped Smoking Status: Never smoker Past Alcohol Use History: None Reported Additional Past Alcohol Use History / Comment(s): quit smoking 2009,1ppd Past Drug Use History: None Reported - Past Family History Father Family Medical History: Cancer Additional Family Medical History / Comment(s): lung Mother Family Medical History: COPD Additional Family Medical History / Comment(s): bowel surgeries Medications and Allergies Home Medications and Allergies Comment(s): Current Medications Acetaminophen (Tylenol Tab) 650 mg PO Q4HR PRN PRN Reason: Fever and/ or Pain Last Admin: 06/12/19 08:17 Dose: 650 mg Documented by: Albuterol Sulfate (Ventolin Nebulized) 2.5 mg INHALATION RT-TID [facility] Last Admin: 06/12/19 19:31 Dose: Not Given Documented by: Calcitriol (Rocaltrol) 0.25 mcg PO Q48H [facility] Last Admin: 06/12/19 09:12 Dose: 0.25 mcg Documented by: Cholecalciferol (Vitamin D3 (25 Mcg = 1000 Iu)) 2,000 unit PO DAILY@0800 [facility] Last Admin: 06/12/19 08:03 Dose: 2,000 unit Documented by: Cyanocobalamin (Vitamin B-12) 1,000 mcg PO DAILY [facility] Last Admin: 06/12/19 08:03 Dose: 1,000 mcg Documented by: Divalproex Sodium (Depakote Er) 1,000 mg PO DAILY@0800 [facility] Last Admin: 06/12/19 09:13 Dose: 1,000 mg Documented by: Ferrous Sulfate (Feosol) 325 mg PO BID@0800,2100 [facility] Last Admin: 06/12/19 20:17 Dose: 325 mg Documented by: Furosemide (Lasix) 40 mg PO DAILY@0800 [facility] Last Admin: 06/12/19 08:02 Dose: 40 mg Documented by: Heparin Sodium (Porcine) (Heparin) 5,000 unit SQ Q12HR [facility] Last Admin: 06/12/19 20:17 Dose: 5,000 unit Documented by: Meropenem 1 gm/ Sodium (Chloride) 100 mls @ 200 mls/hr IVPB Q12H [facility]; Protocol Last Admin: 06/12/19 15:39 Dose: 200 mls/hr Documented by: Dextrose/Water (Dextrose 5%-Water Iv Soln) 1,000 mls @ 30 mls/hr IV .Q24H [facility] Last Admin: 06/12/19 15:39 Dose: 30 mls/hr Documented by: Insulin Aspart (Novolog) 5 unit SQ PC-TID [facility] Last Admin: 06/12/19 17:40 Dose: 5 unit Documented by: Insulin Aspart (Novolog) 0 unit SQ ACHS [facility]; Protocol Last Admin: 06/12/19 20:18 Dose: 3 unit Documented by: Lactobacillus Acidoph/Bulgaricus (Lactinex) 1 each PO DAILY@0800 [facility] Last Admin: 06/12/19 09:12 Dose: 1 each Documented by: Levothyroxine Sodium (Synthroid) 50 mcg PO DAILY@0830 [facility] Last Admin: 06/12/19 08:02 Dose: 50 mcg Documented by: Lisinopril (Zestril) 5 mg PO DAILY@0800 [facility] Last Admin: 06/12/19 08:02 Dose: 5 mg Documented by: Miscellaneous Information (Pneumonia Protocol Utilized) 1 each PO ONCE PRN PRN Reason: Per Protocol Nifedipine (Procardia Xl) 30 mg PO DAILY@0800 [facility] Last Admin: 06/12/19 09:12 Dose: 30 mg Documented by: Nystatin (Mycostatin Powder) 1 applic TOPICAL BID@08,1999 [facility] Last Admin: 06/12/19 19:56 Dose: 1 applic Documented by: Pantoprazole Sodium (Protonix) 40 mg PO DAILY@0730 [facility] Last Admin: 06/12/19 08:02 Dose: 40 mg Documented by: Polyethylene Glycol (Miralax) 17 gm PO DAILY PRN PRN Reason: Constipation Senna (Senokot) 17.2 mg PO HS PRN PRN Reason: Constipation Tamsulosin HCl (Flomax) 0.4 mg PO DAILY@0800 [facility] Last Admin: 06/12/19 08:02 Dose: 0.4 mg Documented by: Ursodiol (Actigall) 300 mg PO AC-TID [facility] Last Admin: 06/12/19 17:40 Dose: 300 mg Documented by: Home Medications Medication Instructions Recorded Confirmed Type Calcitriol [Rocaltrol] 0.25 mcg PO Q48H 12/29/16 06/11/19 History Cholecalciferol [Vitamin D3 (25 2,000 unit PO DAILY@0800 12/29/16 06/11/19 History Mcg = 1000 Iu)] Ferrous Sulfate [Iron (65 MG 325 mg PO BID@0800,2100 12/29/16 06/11/19 History Elemental)] Tamsulosin [Flomax] 0.4 mg PO DAILY@0800 12/29/16 06/11/19 History Divalproex Sodium [Divalproex 1,000 mg PO DAILY@0800 03/19/19 06/11/19 History Sodium ER] Insulin Aspart [NovoLOG Flexpen] 5 units SQ PC-TID 03/19/19 06/11/19 History Polyethylene Glycol 3350 [Miralax] 17 gm PO DAILY PRN 03/19/19 06/11/19 History Sennosides [Senna] 17.2 mg PO HS PRN 03/19/19 06/11/19 History Cyanocobalamin (Vitamin B-12) 1,000 mcg PO DAILY 04/03/19 06/11/19 History [Vitamin B-12] Albuterol Sulfate [Proair Hfa] 2 puff INHALATION RT-TID PRN 05/28/19 06/11/19 History Glucerna Shake 1 can PO BID@0900,209905/28/19 06/11/19 History L.acidoph,Paracasei, B.lactis 1 cap PO DAILY@0800 05/28/19 06/11/19 History [Probiotic] NIFEdipine XL [Procardia Xl] 30 mg PO DAILY@0800 05/28/19 06/11/19 History Pantoprazole [Protonix] 40 mg PO DAILY@0730 05/28/19 06/11/19 History Ursodiol 300 mg PO AC-TID 05/28/19 06/11/19 History Ciprofloxacin HCl [Cipro] 500 mg PO BID@0800,199906/11/19 06/11/19 History Furosemide [Lasix] 40 mg PO DAILY@0800 06/11/19 06/11/19 History Levothyroxine Sodium [Synthroid] 50 mcg PO DAILY@0830 06/11/19 06/11/19 History Lisinopril [Zestril] 5 mg PO DAILY@0800 06/11/19 06/11/19 History Nystatin 100,000 Unit/gm Powd 1 applic TOPICAL BID@0800,199906/11/19 06/11/19 History [Mycostatin Powder] Allergies Allergy/AdvReac Type Severity Reaction Status Date / Time lithium Allergy Unknown Verified 06/11/19 13:18 Physical Exam Vitals: Vital Signs Temp Pulse Pulse Resp BP Pulse Ox 06/12/19 21:00 94.4 F L 59 L 16 127/63 95 06/12/19 11:10 95 06/12/19 11:05 97.6 F 69 22 118/62 90 L 06/12/19 09:07 69 06/12/19 09:01 97 06/12/19 08:59 66 06/12/19 08:05 98.6 F 06/12/19 08:00 98 F 06/12/19 05:00 98.3 F 74 16 126/67 93 L 06/12/19 00:23 62 18 06/11/19 21:43 97.3 F L 62 16 98/58 93 L Intake and Output 06/12/19 06/12/19 06/12/19 06:59 14:59 22:59 Intake Total 590 Output Total 500 1000 Balance 90 -1000 Intake: Oral 590 Output: Urine 500 1000 Uretheral (Romero) 500 1000 Other: Voiding Method Indwelling Catheter Indwelling Catheter Indwelling Catheter # Bowel Movements 1 1 2 Gen: This is a 79-year-old male. Patient appears thin with muscle wasting to the extremities. He appears to be in no acute distress. HEENT: Head is atraumatic, normocephalic. Pupils equal, round. Sclerae is anicteric. NECK: Supple. No JVD. No lymphadenopathy. No thyromegaly. LUNGS: They're symmetrical bilaterally entry however there are bibasilar crackles and some expiratory wheezes it is noted has a bit of a moist cough. Nursing staff doves have him sitting upright and is doing a H and talk with his eating HEART: Regular rate and rhythm. Systolic murmur. ABDOMEN: Soft. Bowel sounds are present. No masses. No tenderness. Romero catheter draining akila urine. EXTREMITIES: No pedal edema. Dorsalis pedis +1 bilateral. Mild pretibial edema and erythema slightly worse to the left. No drainage noted. NEUROLOGICAL: Patient is awake, alert and oriented x2 Skin there is concerns to a rash in the perineum. Upon evaluating the patient has had a stool and there is a large amount of a pasty stool that is completely filled his brief that coats the entire area especially where there is concern for the rash. He does have a Romero. Results CBC & Chem 7: 06/12/19 07:38 06/12/19 07:38 Labs: Abnormal Lab Results - Last 24 Hours (Table) 06/12/19 06/12/19 06/12/19 Range/Units 07:23 07:38 07:38 WBC 3.1 L (3.8-10.6) k/uL RBC 2.32 L (4.30-5.90) m/uL Hgb 7.8 L (13.0-17.5) gm/dL Hct 26.3 L (39.0-53.0) % MCV 113.1 H D (80.0-100.0) fL MCHC 29.6 L (31.0-37.0) g/dL RDW 16.2 H (11.5-15.5) % Plt Count 26 L (150-450) k/uL Lymphocytes # 0.6 L (1.0-4.8) k/uL Macrocytosis Marked A Chloride 111 H (98-107) mmol/L BUN 37 H (9-20) mg/dL Creatinine 1.71 H (0.66-1.25) mg/dL Glucose 172 H (74-99) mg/dL POC Glucose (mg/dL) 192 H (75-99) mg/dL Calcium 8.0 L (8.4-10.2) mg/dL 06/12/19 06/12/19 06/12/19 Range/Units 10:57 11:19 11:34 WBC (3.8-10.6) k/uL RBC (4.30-5.90) m/uL Hgb (13.0-17.5) gm/dL Hct (39.0-53.0) % MCV (80.0-100.0) fL MCHC (31.0-37.0) g/dL RDW (11.5-15.5) % Plt Count (150-450) k/uL Lymphocytes # (1.0-4.8) k/uL Macrocytosis Chloride (98-107) mmol/L BUN (9-20) mg/dL Creatinine (0.66-1.25) mg/dL Glucose (74-99) mg/dL POC Glucose (mg/dL) 68 L 41 L 51 L (75-99) mg/dL Calcium (8.4-10.2) mg/dL 06/12/19 06/12/19 Range/Units 17:05 20:03 WBC (3.8-10.6) k/uL RBC (4.30-5.90) m/uL Hgb (13.0-17.5) gm/dL Hct (39.0-53.0) % MCV (80.0-100.0) fL MCHC (31.0-37.0) g/dL RDW (11.5-15.5) % Plt Count (150-450) k/uL Lymphocytes # (1.0-4.8) k/uL Macrocytosis Chloride (98-107) mmol/L BUN (9-20) mg/dL Creatinine (0.66-1.25) mg/dL Glucose (74-99) mg/dL POC Glucose (mg/dL) 186 H 220 H (75-99) mg/dL Calcium (8.4-10.2) mg/dL Microbiology - Last 24 Hours (Table) 06/11/19 13:57 Blood Culture - Preliminary Blood No Growth after 24 hours 06/11/19 20:35 Gram Stain - Preliminary Sputum Microbiology 06/11/19 13:57 Blood Blood Culture - Preliminary No Growth after 24 hours 06/11/19 20:35 Sputum Gram Stain - Preliminary Chest x-ray: image reviewed (Bibasal infiltrates worse) Assessment and Plan (1) Hypothermia Current Visit: Yes Status: Acute Code(s): T68.XXXA - HYPOTHERMIA, INITIAL ENCOUNTER SNOMED Code(s): 555471692 (2) Pneumonia Narrative/Plan: 79-year-old male who has a compromised mental status has been having some difficulties with swallowing and maneuvers are utilized to help him eat. Relates his appetite is good but there is concerns for aspiration as etiology of the current worsening bilateral pneumonia. Admission he had hypothermia evidence of pneumonia dehydration and acute renal failure. He is now feeling somewhat better. However there is evidence of pancytopenia and platelets have precipitously dropped since the last admission. With this in the concerns pneumonia we'll alter from Zosyn to meropenem given the patient's hospitalization, concerns to aspiration, concerns to significant toxicity from the piperacillin tazobactam. Also meropenem is being utilize with concerns to resistant gram-negative bacilli and significant toxicity from Zosyn. Cultures are in process. Hypothermia has resolved and he has had this in the past Pulmonary critical care have been consulted. Current Visit: Yes Status: Acute Code(s): J18.9 - PNEUMONIA, UNSPECIFIED ORGANISM SNOMED Code(s): 628043735 (3) ARF (acute renal failure) Current Visit: No Status: Acute Code(s): N17.9 - ACUTE KIDNEY FAILURE, UNSPECIFIED SNOMED Code(s): 16374120
[2019-06-12] MEDS: FLUCONAZOLE 100 MG TAB PO SCH (22:33)
[2019-06-13] MEDS: MEROPENEM 1 GM in SODIUM CHLORIDE 0.9% 100 ML IVPB SCH ×2 (03:59→17:29)
[2019-06-13 07:11] LABS: Glucose,Whole Blood 76 mg/dL (75-99)
[2019-06-13] MEDS: ALBUTEROL NEBULIZED 2.5 MG/3 ML INHALATION SCH ×3 (07:38→21:16)
[2019-06-13 09:28] LABS: Anisocytosis Slight; Basophils % (A) 0 %; Eosinophils % (A) 0 %; HCT 29.8 % (39.0-53.0); Hypochromasia Marked; Lymphocytes # (A) 0.5 k/uL (1.0-4.8); Lymphocytes % (A) 7 %; MCH 33.4 pg (25.0-35.0); MCHC 30.2 g/dL (31.0-37.0); MCV 110.7 fL (80.0-100.0); Macrocytosis Marked; Mean Platelet Volume 9.2; Monocytes # (A) 0.2 k/uL (0-1.0); Monocytes % (A) 3 %; Neutrophils # (A) 6.3 k/uL (1.3-7.7); Neutrophils % (A) 88 %; RBC 2.69 m/uL (4.30-5.90); RDW 16.1 % (11.5-15.5); WBC 7.2 k/uL (3.8-10.6)
[2019-06-13] MEDS: URSODIOL 300 MG CAP PO SCH ×3 (09:30→17:38)
[2019-06-13] MEDS: DIVALPROEX ER 500 MG TAB.ER.24H PO SCH (09:30)
[2019-06-13 09:31] LABS: Calcium 8.5 mg/dL (8.4-10.2); Potassium 4.1 mmol/L (3.5-5.1)
[2019-06-13] MEDS: NYSTATIN 100,000 UNIT/GM POWD 15 GM TOPICAL SCH ×2 (09:33→21:36)
[2019-06-13] MEDS: INSULIN ASPART (NovoLOG) 100 UNIT/ML VIAL SQ SCH ×7 (09:33→20:46)
[2019-06-13 09:34] LABS: Platelet Count 24 k/uL (150-450)
[2019-06-13] MEDS: LEVOTHYROXINE 50 MCG TAB PO SCH (09:34)
[2019-06-13] MEDS: CYANOCOBALAMIN 500 MCG TAB PO SCH (09:34)
[2019-06-13] MEDS: TAMSULOSIN 0.4 MG CAP.ER.24H PO SCH (09:34)
[2019-06-13] MEDS: HEPARIN SODIUM,PORCINE 5,000 UNIT/ML 1 ML VIAL SQ SCH ×2 (09:34→20:46)
[2019-06-13] MEDS: PANTOPRAZOLE 40 MG TABLET PO SCH (09:35)
[2019-06-13] MEDS: CHOLECALCIFEROL 1,000 UNIT TAB PO SCH (09:36)
--- NOTE | 2019-06-13 10:46 | P.NPCON ---
History of Present Illness - Reason for Consult acute renal failure, chronic renal failure - History of Present Illness reason for consultation: Acute kidney injury on chronic kidney disease History of present illness: Patient is a 79-year-old male seen in renal consultation for acute kidney injury on chronic kidney disease. Patient has chronic kidney disease stage III with baseline creatinine in the range of 1.3-1.5. Renal function this admission has been fairly stable. Creatinine 1.65 today.patient was sent to the hospital due to concern for UTI. Patient has been feeling progressively weaker and less conscious. Patient did complete antibiotics outpatient prior to this admission.he is also been having difficulty swallowing and there is concern for aspiration. He is being followed by infectious disease and is maintained on antibiotics. UA is noted to be quite benign.patient is currently maintained on Lasix 40 mg orally once daily. In terms of IV fluids he is on D5W at 30 mL an hour. He does have history of diabetes mellitus. He is currently quite sleepy. Patient is not a reliable historian at this time. Vital signs are stable. General: The patient appeared well nourished and normally developed. HEENT: Head exam is unremarkable. Neck is without jugular venous distension. LUNGS: Breath sounds decreased. HEART: Rate and Rhythm are regular. First and second heart sounds normal. No murmurs, rubs or gallops. ABDOMEN: Abdominal exam reveals normal bowel sounds. Non-tender and non- distended. No evidence of peritonitis. EXTREMITITES: No clubbing, cyanosis, or edema. Past Medical History Past Medical History: Cancer, Diabetes Mellitus, Hyperlipidemia, Hypertension, Myocardial Infarction ([place]) Additional Past Medical History / Comment(s): Mental handicap-approx capacity at age 9.,bladder Ca approx 2013,elevated potassium Last Myocardial Infarction Date:: 2009 History of Any Multi-Drug Resistant Organisms: None Reported Past Surgical History: Heart Catheterization With Stent Additional Past Surgical History / Comment(s): bladder tumors removed; Cataract R eye, stent place in pancreatic duct Past Anesthesia/Blood Transfusion Reactions: No Reported Reaction Date of Last Stent Placement:: 2009 Past Psychological History: No Psychological Hx Reported Additional Psychological History / Comment(s): mentally handicapped Smoking Status: Never smoker Past Alcohol Use History: None Reported Additional Past Alcohol Use History / Comment(s): quit smoking 2009,1ppd Past Drug Use History: None Reported - Past Family History Father Family Medical History: Cancer Additional Family Medical History / Comment(s): lung Mother Family Medical History: COPD Additional Family Medical History / Comment(s): bowel surgeries Medications and Allergies Home Medications Medication Instructions Recorded Confirmed Type Calcitriol [Rocaltrol] 0.25 mcg PO Q48H 12/29/16 06/11/19 History Cholecalciferol [Vitamin D3 (25 2,000 unit PO DAILY@0800 12/29/16 06/11/19 History Mcg = 1000 Iu)] Ferrous Sulfate [Iron (65 MG 325 mg PO BID@0800,2100 12/29/16 06/11/19 History Elemental)] Tamsulosin [Flomax] 0.4 mg PO DAILY@0800 12/29/16 06/11/19 History Divalproex Sodium [Divalproex 1,000 mg PO DAILY@0800 03/19/19 06/11/19 History Sodium ER] Insulin Aspart [NovoLOG Flexpen] 5 units SQ PC-TID 03/19/19 06/11/19 History Polyethylene Glycol 3350 [Miralax] 17 gm PO DAILY PRN 03/19/19 06/11/19 History Sennosides [Senna] 17.2 mg PO HS PRN 03/19/19 06/11/19 History Cyanocobalamin (Vitamin B-12) 1,000 mcg PO DAILY 04/03/19 06/11/19 History [Vitamin B-12] Albuterol Sulfate [Proair Hfa] 2 puff INHALATION RT-TID PRN 05/28/19 06/11/19 History Glucerna Shake 1 can PO BID@0900,2100 05/28/19 06/11/19 History L.acidoph,Paracasei, B.lactis 1 cap PO DAILY@0800 05/28/19 06/11/19 History [Probiotic] NIFEdipine XL [Procardia Xl] 30 mg PO DAILY@0800 05/28/19 06/11/19 History Pantoprazole [Protonix] 40 mg PO DAILY@0730 05/28/19 06/11/19 History Ursodiol 300 mg PO AC-TID 05/28/19 06/11/19 History Ciprofloxacin HCl [Cipro] 500 mg PO BID@0800,199906/11/19 06/11/19 History Furosemide [Lasix] 40 mg PO DAILY@0800 06/11/19 06/11/19 History Levothyroxine Sodium [Synthroid] 50 mcg PO DAILY@0830 06/11/19 06/11/19 History Lisinopril [Zestril] 5 mg PO DAILY@0800 06/11/19 06/11/19 History Nystatin 100,000 Unit/gm Powd 1 applic TOPICAL BID@799,199906/11/19 06/11/19 History [Mycostatin Powder] Allergies Allergy/AdvReac Type Severity Reaction Status Date / Time lithium Allergy Unknown Verified 06/11/19 13:18 Physical Exam Vitals: Vital Signs Temp Pulse Pulse Resp BP Pulse Ox 06/13/19 07:45 70 06/13/19 07:39 68 06/13/19 05:00 94.7 F L 58 L 16 173/85 97 06/13/19 00:00 16 06/12/19 21:00 94.4 F L 59 L 16 127/63 95 06/12/19 11:10 95 06/12/19 11:05 97.6 F 69 22 118/62 90 L Intake and Output 06/12/19 06/13/19 06/13/19 22:59 06:59 14:59 Intake Total 600 590 Output Total 1000 2700 Balance -400 -2110 Intake: Intake, IV Titration 120 Amount Dextrose 5% in Water 1, 120 000 ml @ 30 mls/hr IV . Q24H [facility] Rx#:[id number] Oral 480 590 Output: Urine 1000 2700 Uretheral (Romero) 1000 2700 Other: Voiding Method Indwelling Catheter Indwelling Catheter # Bowel Movements 2 Results - Lab Results Most recent lab results Calcium 8.5 mg/dL (8.4-10.2) 06/13/19 08:48 Magnesium 1.8 mg/dL (1.6-2.3) 06/11/19 12:15 06/13/19 08:48 06/13/19 08:48 Assessment and Plan Plan: Assessment: 1.acute kidney injury mostly prerenal secondary to infection and diuresis. Renal function fairly stable. Creatinine 1.65 today. UA benign. 2. Pneumonia with concern for aspiration. Maintain antibiotics. 3. Chronic kidney disease stage III secondary to nephrosclerosis with baseline creatinine in the range of 1.3-1.5. 4. Anemia of chronic kidney disease. Rule out iron deficiency. 5. Insulin-dependent diabetes mellitus. 6. Hypertension with chronic kidney disease. 7. Chronic kidney disease mineral bone disease maintained on calcitriol. Plan: Hep-Lock IV fluids. Hold Lasix. Encourage oral intake. Follow-up cultures. Avoid nephrotoxins. Can continue with lisinopril for now but to hold if systolic blood pressure less than 120. Check renal ultrasound. Check iron studies. Repeat electrolytes in the morning. Thank you for the consultation. I will continue to follow patient with you during his hospital stay.
[2019-06-13] MEDS: FERROUS SULFATE 325 MG TAB PO SCH ×2 (11:16→20:45)
[2019-06-13] MEDS: LACTOBACILLUS ACIDOPH & BULGAR 1 EACH PACKET PO SCH (11:16)
[2019-06-13 11:25] LABS: Glucose,Whole Blood 222 mg/dL (75-99)
--- NOTE | 2019-06-13 11:56 | P.CRDCN ---
History of Present Illness History of present illness: This is a pleasant 79-year-old male past medical history significant for coronary artery disease s/p stent placement 2009, diabetes mellitus, hypertension, dyslipidemia, peripheral vascular disease, chronic anemia, history of bladder cancer with chronic indwelling abreu catheter, thrombocytopenia, chronic renal failure, cognitive delay and chronic aspiration pneumonia. He follows in the office with Dr. Macedo in the office. We have been asked to see him in consultation secondary to shortness of breath. He [facility] the [facility] with symptoms of difficulty urinating and altered mental status. Although he has a chronic indwelling catheter. He is seen and examined sitting up in bed sleeping resting comfortably in no acute distress. He is complaining of feeling short of breath with a lot of phlegm that he cannot clear with a cough. He denies chest pain, dizziness, nausea, vomiting, PND, orthopnea or palpitations. He is a poor historian secondary to baseline cognitive delay. He is currently being treated for aspiration pneumonia. Chest x-ray on admission reveals bibasilar infiltrates right greater than left. Repeat chest x-ray yesterday reveals worsening bibasilar airspace disease. Pulmonary vasculature is within normal limits with blunting of the costophrenic angles. Laboratory data reviewed, WBC 7.2, hemoglobin 9, platelets 24, sodium 143, potassium 4.1, creatinine 1.65 with a GFR of 40, magnesium 1.8. Current daily cardiac medications include Lasix 40 mg daily, lisinopril 5 mg daily and nifedipine 30 mg daily. Most recent stress test performed in the office with a dobutamine stress echocardiogram October 2018 with evidence of old inferior septal NH with no ischemic changes and no inducible ischemia. Most recent echocardiogram obtained April 2019 reveals mildly impaired LV systolic function with ejection fraction 45-50%, basal inferior and basal inferior septal wall motion hypokinesia, mild MR, mild TR and mild pulmonary hypertension with an RVSP of 36 mmHg. At the time of my exam: CONSTITUTIONAL: Denies fever. Denies chills. EYES: Denies blurred vision. Denies vision changes. Denies eye pain. EARS, NOSE, MOUTH & THROAT: Denies headache. Denies sore throat. Denies ear pain. CARDIOVASCULAR: Denies chest pain. Complains of shortness of breath. Denies orthopnea. Denies PND. Denies palpitations. RESPIRATORY: Complains of cough. GASTROINTESTINAL: Denies abdominal pain. Denies diarrhea. Denies constipation. Denies nausea. Denies vomiting. MUSCULOSKELETAL: Denies myalgias. INTEGUMENTARY: Denies pruitis. Denies rash. NEUROLOGIC: Denies numbness. Denies tingling. Denies weakness. PSYCHIATRIC: Denies anxiety. Denies depression. ENDOCRINE: Denies fatigue. Denies weight change. Denies polydipsia. Denies polyurina. GENITOURINARY: Denies burning, hematuria or urgency with micturation. HEMATOLOGIC: Denies history of anemia. Denies bleeding. Blood pressure 173/85 heart rate 58 afebrile maintaining oxygen saturation on nasal cannula GENERAL: This is a 79-year-old male in no apparent distress at the time of my examination. HEENT: Head is atraumatic, normocephalic. Pupils are equal, round. Sclerae anicteric. Conjunctivae are clear. Mucous membranes of the mouth are moist. Neck is supple. There is no jugular venous distention. No carotid bruit is heard. LUNGS: Scattered course rhonchi throughout. Faint intermittent basilar rales. No wheezes. No chest wall tenderness is noted on palpation or with deep breathing. HEART: Regular rate and rhythm without murmurs, rubs or gallops. S1 and S2 heard. ABDOMEN: Soft, nontender. Bowel sounds are heard. No organomegaly noted. EXTREMITIES: No evidence of peripheral edema and no calf tenderness noted. VASCULAR: Radial and dorsalis pedis pulses palpated, no evidence of clubbing. NEUROLOGIC: Patient is awake, alert and oriented to self. ASSESSMENT Aspiration pneumonia Chronic kidney disease Thrombocytopenia Hypertension Dyslipidemia Peripheral vascular disease History of coronary artery disease in 2010 status post stent placement, exact details unavailable Ischemic cardiomyopathy History of bladder cancer with chronic indwelling Abreu catheter PLAN Continue current medical regimen. Contraindicated for beta blockers due to history of bradycardia. Obtain baseline EKG> Check NTproBNP. Shortness of breath likely related to pneumonia. Lasix currently on hold due to renal function. Thank you kindly for this consultation. Nurse Practitioner note has been reviewed, I agree with a documented findings and plan of care. Patient was seen and examined. Past Medical History Past Medical History: Cancer, Diabetes Mellitus, Hyperlipidemia, Hypertension, Myocardial Infarction (NH) Additional Past Medical History / Comment(s): Mental handicap-approx capacity at age 9.,bladder Ca approx 2013,elevated potassium Last Myocardial Infarction Date:: 2009 History of Any Multi-Drug Resistant Organisms: None Reported Past Surgical History: Heart Catheterization With Stent Additional Past Surgical History / Comment(s): bladder tumors removed; Cataract R eye, stent place in pancreatic duct Past Anesthesia/Blood Transfusion Reactions: No Reported Reaction Date of Last Stent Placement:: 2009 Past Psychological History: No Psychological Hx Reported Additional Psychological History / Comment(s): mentally handicapped Smoking Status: Never smoker Past Alcohol Use History: None Reported Additional Past Alcohol Use History / Comment(s): quit smoking 2009,1ppd Past Drug Use History: None Reported - Past Family History Father Family Medical History: Cancer Additional Family Medical History / Comment(s): lung Mother Family Medical History: COPD Additional Family Medical History / Comment(s): bowel surgeries Medications and Allergies Home Medications Medication Instructions Recorded Confirmed Type Calcitriol [Rocaltrol] 0.25 mcg PO Q48H 12/29/16 06/11/19 History Cholecalciferol [Vitamin D3 (25 2,000 unit PO DAILY@0800 12/29/16 06/11/19 History Mcg = 1000 Iu)] Ferrous Sulfate [Iron (65 MG 325 mg PO BID@0800,2100 12/29/16 06/11/19 History Elemental)] Tamsulosin [Flomax] 0.4 mg PO DAILY@0800 12/29/16 06/11/19 History Divalproex Sodium [Divalproex 1,000 mg PO DAILY@0800 03/19/19 06/11/19 History Sodium ER] Insulin Aspart [NovoLOG Flexpen] 5 units SQ PC-TID 03/19/19 06/11/19 History Polyethylene Glycol 3350 [Miralax] 17 gm PO DAILY PRN 03/19/19 06/11/19 History Sennosides [Senna] 17.2 mg PO HS PRN 03/19/19 06/11/19 History Cyanocobalamin (Vitamin B-12) 1,000 mcg PO DAILY 04/03/19 06/11/19 History [Vitamin B-12] Albuterol Sulfate [Proair Hfa] 2 puff INHALATION RT-TID PRN 05/28/19 06/11/19 History Glucerna Shake 1 can PO BID@0900,2100 05/28/19 06/11/19 History L.acidoph,Paracasei, B.lactis 1 cap PO DAILY@0800 05/28/19 06/11/19 History [Probiotic] NIFEdipine XL [Procardia Xl] 30 mg PO DAILY@0800 05/28/19 06/11/19 History Pantoprazole [Protonix] 40 mg PO DAILY@0730 05/28/19 06/11/19 History Ursodiol 300 mg PO AC-TID 05/28/19 06/11/19 History Ciprofloxacin HCl [Cipro] 500 mg PO BID@0800,199906/11/19 06/11/19 History Furosemide [Lasix] 40 mg PO DAILY@0800 06/11/19 06/11/19 History Levothyroxine Sodium [Synthroid] 50 mcg PO DAILY@0830 06/11/19 06/11/19 History Lisinopril [Zestril] 5 mg PO DAILY@0800 06/11/19 06/11/19 History Nystatin 100,000 Unit/gm Powd 1 applic TOPICAL BID@0800,199906/11/19 06/11/19 History [Mycostatin Powder] Allergies Allergy/AdvReac Type Severity Reaction Status Date / Time lithium Allergy Unknown Verified 06/11/19 13:18 Physical Exam Vitals: Vital Signs Temp Pulse Pulse Resp BP Pulse Ox 06/13/19 08:40 58 L 16 06/13/19 07:45 70 06/13/19 07:39 68 06/13/19 05:00 94.7 F L 58 L 16 173/85 97 06/13/19 00:00 16 06/12/19 21:00 94.4 F L 59 L 16 127/63 95 Intake and Output 06/12/19 06/13/19 06/13/19 22:59 06:59 14:59 Intake Total 600 590 Output Total 1000 2700 600 Balance -400 -2110 -600 Intake: Intake, IV Titration 120 Amount Dextrose 5% in Water 1, 120 000 ml @ 30 mls/hr IV . Q24H [facility] Rx#:[id number] Oral 480 590 Output: Urine 1000 2700 600 Uretheral (Abreu) 1000 2700 600 Other: Voiding Method Indwelling Catheter Indwelling Catheter Indwelling Catheter # Bowel Movements 2 Results 06/13/19 08:48 06/13/19 08:48 CBC 06/13/19 Range/Units 08:48 WBC 7.2 (3.8-10.6) k/uL RBC 2.69 L (4.30-5.90) m/uL Hgb 9.0 L (13.0-17.5) gm/dL Hct 29.8 L (39.0-53.0) % Plt Count 24 L (150-450) k/uL Comprehensive Metabolic Panel 06/13/19 Range/Units 08:48 Sodium 143 (137-145) mmol/L Potassium 4.1 (3.5-5.1) mmol/L Chloride 107 (98-107) mmol/L Carbon Dioxide 29 (22-30) mmol/L BUN 34 H (9-20) mg/dL Creatinine 1.65 H (0.66-1.25) mg/dL Glucose 112 H (74-99) mg/dL Calcium 8.5 (8.4-10.2) mg/dL Current Medications Generic Name Dose Route Start Last Admin Trade Name Jean PRN Reason Stop Dose Admin Acetaminophen 650 mg 06/12/19 08:14 06/12/19 08:17 Tylenol Tab PO 650 mg Q4HR PRN Administration Fever and/ or Pain Albuterol Sulfate 2.5 mg 06/11/19 20:00 06/13/19 07:38 Ventolin Nebulized INHALATION 2.5 mg RT-TID [facility] Administration Calcitriol 0.25 mcg 06/12/19 09:00 06/12/19 09:12 Rocaltrol PO 0.25 mcg Q48H [facility] Administration Cholecalciferol 2,000 unit 06/12/19 08:00 06/13/19 09:36 Vitamin D3 (25 Mcg = 1000 Iu) PO 2,000 unit DAILY@0800 [facility] Administration Cyanocobalamin 1,000 mcg 06/12/19 09:00 06/13/19 09:34 Vitamin B-12 PO 1,000 mcg DAILY [facility] Administration Divalproex Sodium 1,000 mg 06/12/19 08:00 06/13/19 09:30 Depakote Er PO 1,000 mg DAILY@0800 [facility] Administration Ferrous Sulfate 325 mg 06/11/19 21:00 06/13/19 11:16 Feosol PO 325 mg BID@0800,2100 [facility] Administration Fluconazole 100 mg 06/12/19 22:00 06/12/19 22:33 Diflucan PO 100 mg DAILY@2100 [facility] Administration Heparin Sodium (Porcine) 5,000 unit 06/11/19 21:00 06/13/19 09:34 Heparin SQ 5,000 unit Q12HR [facility] Administration Meropenem 1 gm/ Sodium 100 mls @ 200 mls/hr 06/12/19 16:00 06/13/19 03:59 Chloride IVPB 200 mls/hr Q12H [facility] Administration Protocol Insulin Aspart 5 unit 06/11/19 18:30 06/13/19 09:33 Novolog SQ 5 unit PC-TID [facility] Administration Insulin Aspart 0 unit 06/11/19 17:30 06/13/19 10:01 Novolog SQ Not Given ACHS [facility] Protocol Lactobacillus Acidoph/Bulgaricus 1 each 06/12/19 08:00 06/13/19 11:16 Lactinex PO 1 each DAILY@0800 [facility] Administration Levothyroxine Sodium 50 mcg 06/12/19 08:30 06/13/19 09:34 Synthroid PO 50 mcg DAILY@0830 [facility] Administration Lisinopril 5 mg 06/12/19 08:00 06/12/19 08:02 Zestril PO 5 mg DAILY@0800 [facility] Administration Miscellaneous Information 1 each 06/11/19 16:36 Pneumonia Protocol Utilized PO ONCE PRN Per Protocol Nifedipine 30 mg 06/12/19 08:00 06/12/19 09:12 Procardia Xl PO 30 mg DAILY@0800 [facility] Administration Nystatin 1 applic 06/11/19 20:00 06/13/19 09:33 Mycostatin Powder TOPICAL 1 applic BID@0800,1999 [facility] Administration Pantoprazole Sodium 40 mg 06/12/19 07:30 06/13/19 09:35 Protonix PO 40 mg DAILY@0730 [facility] Administration Polyethylene Glycol 17 gm 06/11/19 16:40 Miralax PO DAILY PRN Constipation Senna 17.2 mg 06/11/19 16:40 Senokot PO HS PRN Constipation Tamsulosin HCl 0.4 mg 06/12/19 08:00 06/13/19 09:34 Flomax PO 0.4 mg DAILY@0800 [facility] Administration Ursodiol 300 mg 06/11/19 17:30 06/13/19 11:17 Actigall PO 300 mg AC-TID [facility] Administration Intake and Output 06/12/19 06/13/19 06/13/19 22:59 06:59 14:59 Intake Total 600 590 Output Total 1000 2700 600 Balance -400 -2110 -600 Intake: Intake, IV Titration 120 Amount Dextrose 5% in Water 1, 120 000 ml @ 30 mls/hr IV . Q24H [facility] Rx#:[id number] Oral 480 590 Output: Urine 1000 2700 600 Uretheral (Abreu) 1000 2700 600 Other: Voiding Method Indwelling Catheter Indwelling Catheter Indwelling Catheter # Bowel Movements 2 06/13/19 08:48 06/13/19 08:48
[2019-06-13] MEDS: FUROSEMIDE 40 MG TAB PO SCH (12:16)
[2019-06-13] MEDS: NIFEdipine XL 30 MG TAB.ER.24 PO SCH (12:18)
[2019-06-13] MEDS: LISINOPRIL 5 MG TAB PO SCH (12:23)
--- NOTE | 2019-06-13 14:17 | P.PN ---
Subjective Progress Note Date: 06/13/19 Principal diagnosis: Acute hypoxic respiratory failure secondary to aspiration pneumonia. This is a 79-year-old male patient with known history of developmental delay who is known to me from previous hospitalization. The patient lives in a [facility] and he got transferred again to our hospital for increased confusion, unable to obtain a temperature at home, cough and congestion. He came into the ED and the patient was given a chest x-ray when he was found to have some limited bibasilar pulmonary infiltrates and for that reason he was admitted to the hospital. Currently is on oxygen at 2 L per minute nasal cannula. No chest pain. He is more interactive today. He was seen by ID and he was placed on IV Merrem. During his last evaluation from April 2019, I have non-a swallow evaluation of this patient and the patient was found to have repeated transient penetration with thin consistency with and without a straw and bev aspiration likely from residuals without eliciting a cough reflex. during his earlier hospitalization, I saw this patient in the intensive care unit for sepsis. At that time he was having some swelling and erythema in his lower extremities and he was treated for lower extremity cellulitis and aspiration pneumonia left more than right. His comorbidities include diabetes mellitus type 2, stage III kidney disease, previous history of biliary cirrhosis with biopsy and chronic cholestasis and he has undergone a pancreatic stent insertion, hypertension, hyperlipidemia, CAD and previous WI, mentally handicapped and developmental del ay, CAD and stenting, bladder tumor and previous history of smoking. He has a full CODE STATUS. Patient was reevaluated today on 06/13/2019, remains on treatment for presumptive aspiration pneumonia, patient has many other medical problems including chronic kidney disease, coronary artery disease and previous stent placement, ischemic cardiomyopathy, bladder cancer, and history of indwelling Romero catheter, thrombocytopenia, hypertension, dyslipidemia, and medical debility. Patient is not a great historian. But he seems to be comfortable. Labs showed the risk of 7.2 hemoglobin is 9 lites are normal BUN is 34 creatinine is 1.65 has elevated BNP level of 8510. Chest x-ray is not suggesti ve of interstitial edema, mostly has bibasilar infiltrates. Which seem to be worsening since admission. Objective - Vital Signs Vital signs: Vital Signs Temp 96.3 F L 06/13/19 11:59 Pulse 58 L 06/13/19 11:59 Resp 16 06/13/19 11:59 BP 174/77 06/13/19 11:59 Pulse Ox 99 06/13/19 11:59 Intake & Output 06/12/19 06/13/19 06/13/19 18:59 06:59 18:59 Intake Total 1190 160 Output Total 1000 2700 600 Balance -1000 1510 440 Intake: Intake, IV Titration 120 Amount Dextrose 5% in Water 1, 120 000 ml @ 30 mls/hr IV . Q24H [facility] Rx#:[id number] Oral 1070 160 Output: Urine 1000 2700 600 Uretheral (Romero) 1000 2700 600 Other: Voiding Method Indwelling Catheter Indwelling Catheter Indwelling Catheter # Bowel Movements 2 - Exam GENERAL EXAM: Alert, pleasant, 79-year-old white male, currently on 2 L of oxygen with a pulse ox of 91% comfortable in no apparent distress. Head: Atraumatic, normocephalic. HEENT: PERRLA, EOMI, no icterus. Dry mucous membranes. No neck masses no JVD no stridor. CHEST: No chest wall deformity. Symmetrical expansion. LUNGS: Equal air entry with bilateral lower lobe crackles over posterior lower bases CVS: Regular rate and rhythm, normal S1 and S2, no gallops, no murmurs, no rubs ABDOMEN: Soft, nontender. No hepatosplenomegaly, normal bowel sounds, no guardi ng or rigidity. EXTREMITIES: No clubbing, no edema, no cyanosis, 2+ pulses and upper and lower extremities. MUSCULOSKELETAL: Muscle strength and tone normal. SPINE: No scoliosis or deformity SKIN: No rashes CENTRAL NERVOUS SYSTEM: Arousable, alert and oriented to self only. - Labs CBC & Chem 7: 06/13/19 08:48 06/13/19 08:48 Labs: Abnormal Lab Results - Last 24 Hours (Table) 06/12/19 06/12/19 06/13/19 Range/Units 17:05 20:03 08:48 RBC 2.69 L (4.30-5.90) m/uL Hgb 9.0 L (13.0-17.5) gm/dL Hct 29.8 L (39.0-53.0) % MCV 110.7 H (80.0-100.0) fL MCHC 30.2 L (31.0-37.0) g/dL RDW 16.1 H (11.5-15.5) % Plt Count 24 L (150-450) k/uL Lymphocytes # 0.5 L (1.0-4.8) k/uL Macrocytosis Marked A BUN (9-20) mg/dL Creatinine (0.66-1.25) mg/dL Glucose (74-99) mg/dL POC Glucose (mg/dL) 186 H 220 H (75-99) mg/dL 06/13/19 06/13/19 Range/Units 08:48 11:23 RBC (4.30-5.90) m/uL Hgb (13.0-17.5) gm/dL Hct (39.0-53.0) % MCV (80.0-100.0) fL MCHC (31.0-37.0) g/dL RDW (11.5-15.5) % Plt Count (150-450) k/uL Lymphocytes # (1.0-4.8) k/uL Macrocytosis BUN 34 H (9-20) mg/dL Creatinine 1.65 H (0.66-1.25) mg/dL Glucose 112 H (74-99) mg/dL POC Glucose (mg/dL) 222 H (75-99) mg/dL Microbiology - Last 24 Hours (Table) 06/11/19 13:57 Blood Culture - Preliminary Blood No Growth after 24 hours 06/11/19 20:35 Gram Stain - Preliminary Sputum Assessment and Plan Assessment: Impression: 1 acute hypoxic respiratory failure most likely secondary to aspiration pneumonia. Patient remains on IV Merrem. Multiple comorbidities including chronic kidney disease stage III, history of hypertension, hyperlipidemia, previous WI, history of positive antimitochondrial antibody, history of bladder tumor, history of cataracts, and remote history of nicotine dependence. Recommendation: Continue antibiotics, repeat swallow evaluation, continue aspiration precautions, continue pulmonary toileting, continue incentive spirometry, bronchodilators, titrate FiO2 to keep O2 saturation above 90%. Overall prognosis is definitely poor and guarded. We'll continue to follow. Follow-up chest x-ray in the next 24-48 hours. Time with Patient: Less than 30
--- NOTE | 2019-06-13 15:50 | US ---
EXAMINATION TYPE: US kidneys/renal and bladder DATE OF EXAM: 06/13/2019 COMPARISON: NONE CLINICAL HISTORY: bassam. BASSAM EXAM MEASUREMENTS: Right Kidney: 8.4 x 4.5 x 5.0 cm Left Kidney: 9.4 x 4.9 x 5.0 cm Incidental finding ascites. Right Kidney: No hydronephrosis or masses seen Left Kidney: No hydronephrosis or masses seen Bladder: Catheter in place. Bilateral Jets seen: No The kidneys show increased cortical echogenicity, there is loss of corticomedullary differentiation. There is ascites. IMPRESSION: Findings consistent with medical renal disease.
[2019-06-13 17:20] LABS: Glucose,Whole Blood 116 mg/dL (75-99)
[2019-06-13 17:43] LABS: Ferritin 400.3 ng/mL (22.0-322.0); Iron Saturation 6.91 (15.00-50.00)
[2019-06-13 20:36] LABS: Glucose,Whole Blood 243 mg/dL (75-99)
[2019-06-13] MEDS: FLUCONAZOLE 100 MG TAB PO SCH (20:46)
--- NOTE | 2019-06-14 00:31 | P.PN ---
Subjective Progress Note Date: 06/13/19 Principal diagnosis: This is a 79-year-old male who was recently admitted with bilateral pneumonia right more so than left with possible aspiration and also having features of urinary tract infection and is being closely monitored. Patient was also found to be hypothermic and had features of sepsis. Multiple medical consultations are following. No acute overnight issues. Awaiting report from repeat barium swallow that was done today. Patient denies any chest pain, shortness of breath, or palpitations at this time. Patient is afebrile. Patient denies any nausea or vomiting and was nothing by mouth until swallow eval was done. Patient was having a swallow eval done at the bedside and tolerating nectar thickened apple juice. Will await report. Guarded prognosis. Objective - Vital Signs Vital signs: Vital Signs Temp 96.3 F L 06/13/19 11:59 Pulse 58 L 06/13/19 11:59 Resp 16 06/13/19 11:59 BP 174/77 06/13/19 11:59 Pulse Ox 99 06/13/19 11:59 Intake & Output 06/12/19 06/13/19 06/13/19 18:59 06:59 18:59 Intake Total 1190 160 Output Total 1000 2700 600 Balance -1000 1510 -440 Intake: Intake, IV Titration 120 Amount Dextrose 5% in Water 1, 120 000 ml @ 30 mls/hr IV . Q24H [facility] Rx#:[id number] Oral 1070 160 Output: Urine 1000 2700 600 Uretheral (Romero) 1000 2700 600 Other: Voiding Method Indwelling Catheter Indwelling Catheter Indwelling Catheter # Bowel Movements 2 - Exam Gen: This is a 79 year old male sitting up in bed in no acute distress. HEENT: Head is atraumatic, normocephalic. Pupils equal, round. Sclerae is anicteric. NECK: Supple. No JVD. No lymphadenopathy. No thyromegaly. LUNGS:Diminished breath sounds at the bases with expiratory wheezes noted. Scattered rhonchi and crackles noted throughout. No intercostal retractions. HEART: S1 and S2 muffled. ABDOMEN: Soft. Bowel sounds are present. No masses. No tenderness. EXTREMITIES: No pedal edema. No calf tenderness. NEUROLOGICAL: Patient is awake, alert and oriented x3. Cranial nerves 2 through 12 are grossly intact. - Labs CBC & Chem 7: 06/13/19 08:48 06/13/19 08:48 Labs: Abnormal Lab Results - Last 24 Hours (Table) 06/12/19 06/12/19 06/13/19 Range/Units 17:05 20:03 08:48 RBC 2.69 L (4.30-5.90) m/uL Hgb 9.0 L (13.0-17.5) gm/dL Hct 29.8 L (39.0-53.0) % MCV 110.7 H (80.0-100.0) fL MCHC 30.2 L (31.0-37.0) g/dL RDW 16.1 H (11.5-15.5) % Plt Count 24 L (150-450) k/uL Lymphocytes # 0.5 L (1.0-4.8) k/uL Macrocytosis Marked A BUN (9-20) mg/dL Creatinine (0.66-1.25) mg/dL Glucose (74-99) mg/dL POC Glucose (mg/dL) 186 H 220 H (75-99) mg/dL 06/13/19 06/13/19 Range/Units 08:48 11:23 RBC (4.30-5.90) m/uL Hgb (13.0-17.5) gm/dL Hct (39.0-53.0) % MCV (80.0-100.0) fL MCHC (31.0-37.0) g/dL RDW (11.5-15.5) % Plt Count (150-450) k/uL Lymphocytes # (1.0-4.8) k/uL Macrocytosis BUN 34 H (9-20) mg/dL Creatinine 1.65 H (0.66-1.25) mg/dL Glucose 112 H (74-99) mg/dL POC Glucose (mg/dL) 222 H (75-99) mg/dL Microbiology - Last 24 Hours (Table) 06/11/19 13:57 Blood Culture - Preliminary Blood No Growth after 24 hours 06/11/19 20:35 Gram Stain - Preliminary Sputum Assessment and Plan Assessment: Bilateral pneumonia, right more than the left, possibly aspiration, possibly hospital-acquired with early sepsis, present on admission Small bilateral pleural effusion Hypothermia, present on admission secondary to sepsis Change in mental status, metabolic encephalopathy, acute on chronic Mental handicap history Mild pancytopenia of undetermined origin Increased creatinine with possible chronic kidney disease stage III History of recent left leg cellulitis History of recent acute hypoxic respiratory failure secondary to congestive he art failure acute exacerbation, acute on chronic systolic function, as well as aspiration pneumonia Diabetes mellitus type 2 Hypertension Hyperlipidemia history of myocardial infarction History of anti-mitochondrial antibody positive recently History of bladder tumor history of coronary artery disease/stent History of cataracts Remote history of nicotine dependence Full code Recommendations and discussion: Recommend to continue current medications, management, and symptomatic treatment. Multiple medical consultations are following. Continue to encourage incentive spirometer use and keeping aspiration precautions. Case management and social work are following as they are working with family about possible palliative care. Resources have been provided. Due to multiple complex medical issues, prognosis is extremely guarded and poor. Further recommendations to follow.
[2019-06-14] MEDS: MEROPENEM 1 GM in SODIUM CHLORIDE 0.9% 100 ML IVPB SCH ×2 (04:11→17:52)
[2019-06-14 07:05] LABS: Glucose,Whole Blood 219 mg/dL (75-99)
[2019-06-14] MEDS: ALBUTEROL NEBULIZED 2.5 MG/3 ML INHALATION SCH ×3 (07:05→20:32)
[2019-06-14] MEDS: TAMSULOSIN 0.4 MG CAP.ER.24H PO SCH (08:10)
[2019-06-14] MEDS: HEPARIN SODIUM,PORCINE 5,000 UNIT/ML 1 ML VIAL SQ SCH ×2 (08:10→20:01)
[2019-06-14] MEDS: CHOLECALCIFEROL 1,000 UNIT TAB PO SCH (08:11)
[2019-06-14] MEDS: LEVOTHYROXINE 50 MCG TAB PO SCH (08:11)
[2019-06-14] MEDS: LACTOBACILLUS ACIDOPH & BULGAR 1 EACH PACKET PO SCH (08:11)
[2019-06-14] MEDS: LISINOPRIL 5 MG TAB PO SCH (08:11)
[2019-06-14] MEDS: FERROUS SULFATE 325 MG TAB PO SCH ×2 (08:11→20:01)
[2019-06-14] MEDS: CYANOCOBALAMIN 500 MCG TAB PO SCH (08:11)
[2019-06-14] MEDS: PANTOPRAZOLE 40 MG TABLET PO SCH (08:11)
[2019-06-14] MEDS: URSODIOL 300 MG CAP PO SCH ×3 (08:12→17:52)
[2019-06-14] MEDS: DIVALPROEX ER 500 MG TAB.ER.24H PO SCH (08:12)
[2019-06-14] MEDS: CALCITRIOL 0.25 MCG CAP PO SCH (08:12)
[2019-06-14] MEDS: NIFEdipine XL 30 MG TAB.ER.24 PO SCH (08:13)
[2019-06-14] MEDS: NYSTATIN 100,000 UNIT/GM POWD 15 GM TOPICAL SCH ×2 (08:13→20:45)
[2019-06-14] MEDS: INSULIN ASPART (NovoLOG) 100 UNIT/ML VIAL SQ SCH ×7 (08:20→20:46)
[2019-06-14 08:44] LABS: Basophils % (A) 0 %; Eosinophils # (A) 0.1 k/uL (0-0.7); Eosinophils % (A) 2 %; HCT 25.8 % (39.0-53.0); HGB 8.1 gm/dL (13.0-17.5); Hypochromasia Moderate; Lymphocytes # (A) 0.7 k/uL (1.0-4.8); Lymphocytes % (A) 26 %; MCH 33.6 pg (25.0-35.0); MCHC 31.5 g/dL (31.0-37.0); MCV 106.6 fL (80.0-100.0); Macrocytosis Moderate; Mean Platelet Volume 7.3; Monocytes # (A) 0.1 k/uL (0-1.0); Monocytes % (A) 5 %; Neutrophils # (A) 1.7 k/uL (1.3-7.7); Neutrophils % (A) 64 %; RBC 2.42 m/uL (4.30-5.90); RDW 15.7 % (11.5-15.5); WBC 2.7 k/uL (3.8-10.6)
[2019-06-14 08:45] LABS: Platelet Count 23 k/uL (150-450)
[2019-06-14 09:30] LABS: Calcium 8.7 mg/dL (8.4-10.2); Magnesium 1.6 mg/dL (1.6-2.3); Potassium 4.4 mmol/L (3.5-5.1)
[2019-06-14 11:10] LABS: Glucose,Whole Blood 274 mg/dL (75-99)
--- NOTE | 2019-06-14 12:04 | P.PN ---
Subjective Progress Note Date: 06/14/19 Principal diagnosis: Acute hypoxic respiratory failure secondary to aspiration pneumonia. This is a 79-year-old male patient with known history of developmental delay who is known to me from previous hospitalization. The patient lives in a correction and he got transferred again to our hospital for increased confusion, unable to obtain a temperature at home, cough and congestion. He came into the ED and the patient was given a chest x-ray when he was found to have some limited bibasilar pulmonary infiltrates and for that reason he was admitted to the hospital. Currently is on oxygen at 2 L per minute nasal cannula. No chest pain. He is more interactive today. He was seen by ID and he was placed on IV Merrem. During his last evaluation from April 2019, I have non-a swallow evaluation of this patient and the patient was found to have repeated transient penetration with thin consistency with and without a straw and bev aspiration likely from residuals without eliciting a cough reflex. during his earlier hospitalization, I saw this patient in the intensive care unit for sepsis. At that time he was having some swelling and erythema in his lower extremities and he was treated for lower extremity cellulitis and aspiration pneumonia left more than right. His comorbidities include diabetes mellitus type 2, stage III kidney disease, previous history of biliary cirrhosis with biopsy and chronic cholestasis and he has undergone a pancreatic stent insertion, hypertension, hyperlipidemia, CAD and previous PA, mentally handicapped and developmental de lay, CAD and stenting, bladder tumor and previous history of smoking. He has a full CODE STATUS. Patient was reevaluated today on 06/13/2019, remains on treatment for presumptive aspiration pneumonia, patient has many other medical problems including chronic kidney disease, coronary artery disease and previous stent placement, ischemic cardiomyopathy, bladder cancer, and history of indwelling Fo chan catheter, thrombocytopenia, hypertension, dyslipidemia, and medical debility. Patient is not a great historian. But he seems to be comfortable. Labs showed the risk of 7.2 hemoglobin is 9 lites are normal BUN is 34 creatinine is 1.65 has elevated BNP level of 8510. Chest x-ray is not suggest patria of interstitial edema, mostly has bibasilar infiltrates. Which seem to be worsening since admission. The patient is seen today 06/14/2019 in follow-up on the regular medical floor. He is awake and alert in no acute distress. Currently resting comfortably in bed. Maintaining good O2 saturations in the mid 90s on 2 L/m per nasal cannula. He is afebrile. Sputum culture reveals no growth. Blood culture reveals no growth. White count 2.7. Hemoglobin 8.1. Creatinine 1.67. He remains on bronchodilators and antibiotics in the form of meropenem. Objective - Vital Signs Vital signs: Vital Signs Temp 97.2 F L 06/14/19 05:00 Pulse 53 L 06/14/19 11:18 Resp 16 06/14/19 11:18 BP 117/61 06/14/19 11:18 Pulse Ox 97 06/14/19 11:18 Intake & Output 06/13/19 06/14/19 06/14/19 18:59 06:59 18:59 Intake Total 160 1440 Output Total 2200 400 100 Balance -2040 1040 -100 Intake: Oral 160 1440 Output: Urine 2200 400 100 Uretheral (Romero) 2100 400 100 Other: Voiding Method Indwelling Catheter Indwelling Catheter Indwelling Catheter - Exam GENERAL EXAM: Alert, pleasant, 79-year-old gentleman currently on 2 L of oxygen with a pulse ox of 94% comfortable in no apparent distress. Head: Atraumatic, normocephalic. HEENT: PERRLA, EOMI, no icterus. Dry mucous membranes. No neck masses no JVD no stridor. CHEST: No chest wall deformity. Symmetrical expansion. LUNGS: Equal air entry with bilateral lower lobe crackles over posterior lower bases CVS: Regular rate and rhythm, normal S1 and S2, no gallops, no murmurs, no rubs ABDOMEN: Soft, nontender. No hepatosplenomegaly, normal bowel sounds, no guarding or rigidity. EXTREMITIES: No clubbing, no edema, no cyanosis, 2+ pulses and upper and lower extremities. MUSCULOSKELETAL: Muscle strength and tone normal. SPINE: No scoliosis or deformity SKIN: No rashes CENTRAL NERVOUS SYSTEM: Arousable, alert and oriented to self only. - Labs CBC & Chem 7: 06/14/19 08:14 06/14/19 08:14 Labs: Abnormal Lab Results - Last 24 Hours (Table) 06/13/19 06/13/19 06/13/19 Range/Units 08:48 17:18 20:35 WBC (3.8-10.6) k/uL RBC (4.30-5.90) m/uL Hgb (13.0-17.5) gm/dL Hct (39.0-53.0) % MCV (80.0-100.0) fL RDW (11.5-15.5) % Plt Count (150-450) k/uL Lymphocytes # (1.0-4.8) k/uL Chloride (98-107) mmol/L BUN (9-20) mg/dL Creatinine (0.66-1.25) mg/dL Glucose (74-99) mg/dL POC Glucose (mg/dL) 116 H 243 H (75-99) mg/dL Iron 17 L (65-175) ug/dL Iron Saturation 6.91 L (15.00-50.00) Ferritin 400.3 H (22.0-322.0) ng/mL 06/14/19 06/14/19 06/14/19 Range/Units 07:04 08:14 08:14 WBC 2.7 L (3.8-10.6) k/uL RBC 2.42 L (4.30-5.90) m/uL Hgb 8.1 L (13.0-17.5) gm/dL Hct 25.8 L (39.0-53.0) % MCV 106.6 H (80.0-100.0) fL RDW 15.7 H (11.5-15.5) % Plt Count 23 L (150-450) k/uL Lymphocytes # 0.7 L (1.0-4.8) k/uL Chloride 108 H (98-107) mmol/L BUN 31 H (9-20) mg/dL Creatinine 1.67 H (0.66-1.25) mg/dL Glucose 206 H (74-99) mg/dL POC Glucose (mg/dL) 219 H (75-99) mg/dL Iron (65-175) ug/dL Iron Saturation (15.00-50.00) Ferritin (22.0-322.0) ng/mL 06/14/19 Range/Units 11:09 WBC (3.8-10.6) k/uL RBC (4.30-5.90) m/uL Hgb (13.0-17.5) gm/dL Hct (39.0-53.0) % MCV (80.0-100.0) fL RDW (11.5-15.5) % Plt Count (150-450) k/uL Lymphocytes # (1.0-4.8) k/uL Chloride (98-107) mmol/L BUN (9-20) mg/dL Creatinine (0.66-1.25) mg/dL Glucose (74-99) mg/dL POC Glucose (mg/dL) 274 H (75-99) mg/dL Iron (65-175) ug/dL Iron Saturation (15.00-50.00) Ferritin (22.0-322.0) ng/mL Microbiology - Last 24 Hours (Table) 06/11/19 20:35 Gram Stain - Final Sputum Sputum Culture - Final 06/11/19 13:57 Blood Culture - Preliminary Blood No Growth after 48 hours Assessment and Plan Assessment: Impression: #1 Acute hypoxic respiratory failure secondary to suspected aspiration pneumonia. Currently on meropenem. #2 Chronic kidney disease, stage III. #4 Hypertension. #5 Hyperlipidemia. #6 Previous myocardial infarction. #7 History of positive anti-mitochondrial antibody. #8 History of bladder tumor. #9 Remote history of chronic tobacco dependence. Plan: The patient was seen and evaluated by Dr. Blakely. Chest x-ray is pending. We'll continue with meropenem and bronchodilators. Increase his activity as tolerated. Remaining of aspiration precautions. Titrate down the FiO2 as tolerated. We'll continue to follow and make further recommendations based on his clinical status. I, the cosigning physician, performed a history & physical examination of the patient. Lungs sounds with basilar crackles. Maintaining good O2 saturations in the 90s on 2 L/m per nasal cannula. I discussed the assessment and plan of care with my nurse practitioner, Donna Henning. I attest to the above note as dictated by her.
--- NOTE | 2019-06-14 12:08 | P.PN ---
Subjective Patient is seen in follow-up for acute kidney injury on chronic kidney disease. Patient is chronic kidney disease stage III with baseline creatinine in the range of 1.3-1.5. Renal function is fairly stable. Denies chest pain or shortness of breath. Currently having breakfast. He is nonoliguric. Has a Romero catheter. Vital signs are stable. General: The patient appeared well nourished and normally developed. HEENT: Head exam is unremarkable. Neck is without jugular venous distension. LUNGS: Lungs are clear to auscultation and percussion. Breath sounds decreased. HEART: Rate and Rhythm are regular. First and second heart sounds normal. No murmurs, rubs or gallops. ABDOMEN: Abdominal exam reveals normal bowel sounds. Non-tender and non- distended. No evidence of peritonitis. EXTREMITITES: No clubbing, cyanosis, or edema. Objective - Vital Signs Vital signs: Vital Signs Temp 97.2 F L 06/14/19 05:00 Pulse 53 L 06/14/19 11:18 Resp 16 06/14/19 11:18 BP 117/61 06/14/19 11:18 Pulse Ox 97 06/14/19 11:18 Intake & Output 06/13/19 06/14/19 06/14/19 18:59 06:59 18:59 Intake Total 160 1440 Output Total 2200 400 100 Balance -2040 1040 -100 Intake: Oral 160 1440 Output: Urine 2200 400 100 Uretheral (Romero) 2100 400 100 Other: Voiding Method Indwelling Catheter Indwelling Catheter Indwelling Catheter - Labs CBC & Chem 7: 06/14/19 08:14 06/14/19 08:14 Labs: Abnormal Lab Results - Last 24 Hours (Table) 06/13/19 06/13/19 06/13/19 Range/Units 08:48 17:18 20:35 WBC (3.8-10.6) k/uL RBC (4.30-5.90) m/uL Hgb (13.0-17.5) gm/dL Hct (39.0-53.0) % MCV (80.0-100.0) fL RDW (11.5-15.5) % Plt Count (150-450) k/uL Lymphocytes # (1.0-4.8) k/uL Chloride (98-107) mmol/L BUN (9-20) mg/dL Creatinine (0.66-1.25) mg/dL Glucose (74-99) mg/dL POC Glucose (mg/dL) 116 H 243 H (75-99) mg/dL Iron 17 L (65-175) ug/dL Iron Saturation 6.91 L (15.00-50.00) Ferritin 400.3 H (22.0-322.0) ng/mL 06/14/19 06/14/19 06/14/19 Range/Units 07:04 08:14 08:14 WBC 2.7 L (3.8-10.6) k/uL RBC 2.42 L (4.30-5.90) m/uL Hgb 8.1 L (13.0-17.5) gm/dL Hct 25.8 L (39.0-53.0) % MCV 106.6 H (80.0-100.0) fL RDW 15.7 H (11.5-15.5) % Plt Count 23 L (150-450) k/uL Lymphocytes # 0.7 L (1.0-4.8) k/uL Chloride 108 H (98-107) mmol/L BUN 31 H (9-20) mg/dL Creatinine 1.67 H (0.66-1.25) mg/dL Glucose 206 H (74-99) mg/dL POC Glucose (mg/dL) 219 H (75-99) mg/dL Iron (65-175) ug/dL Iron Saturation (15.00-50.00) Ferritin (22.0-322.0) ng/mL 06/14/19 Range/Units 11:09 WBC (3.8-10.6) k/uL RBC (4.30-5.90) m/uL Hgb (13.0-17.5) gm/dL Hct (39.0-53.0) % MCV (80.0-100.0) fL RDW (11.5-15.5) % Plt Count (150-450) k/uL Lymphocytes # (1.0-4.8) k/uL Chloride (98-107) mmol/L BUN (9-20) mg/dL Creatinine (0.66-1.25) mg/dL Glucose (74-99) mg/dL POC Glucose (mg/dL) 274 H (75-99) mg/dL Iron (65-175) ug/dL Iron Saturation (15.00-50.00) Ferritin (22.0-322.0) ng/mL Microbiology - Last 24 Hours (Table) 06/11/19 20:35 Gram Stain - Final Sputum Sputum Culture - Final 06/11/19 13:57 Blood Culture - Preliminary Blood No Growth after 48 hours Assessment and Plan Plan: Assessment: 1. Acute kidney injury mostly prerenal secondary to infection and diuresis. Renal function fairly stable. Creatinine 1.67 today. UA benign. No evidence of hydronephrosis noted on kidney ultrasound. Right kidney noted to be small. 2. Pneumonia with concern for aspiration. Maintained antibiotics. 3. Chronic kidney disease stage III secondary to nephrosclerosis with baseline creatinine in the range of 1.3-1.5. 4. Anemia of chronic kidney disease. Iron deficiency noted. 5. Insulin-dependent diabetes mellitus. 6. Hypertension with chronic kidney disease. 7. Chronic kidney disease mineral bone disease maintained on calcitriol. Plan: Encouraged oral intake. Currently off IV fluids. Avoid nephrotoxins. Can continue with lisinopril for now but to hold if systolic blood pressure less than 120. IV iron 3 doses. First dose today. Follow-up cultures.
[2019-06-14] MEDS: SODIUM FERRIC GLUCONAT-SUCROSE 125 MG in SODIUM CHLORIDE 0.9% 100 ML IVPB SCH (12:38)
--- NOTE | 2019-06-14 14:46 | XR ---
EXAMINATION TYPE: XR chest 1V portable DATE OF EXAM: 06/14/2019 COMPARISON: Prior chest x-ray 06/12/2019 HISTORY: Basilar infiltrates TECHNIQUE: Single frontal view of the chest is obtained. FINDINGS: Patient is markedly rotated. Exam is similar to prior. IMPRESSION: No significant interval change. Correlate for pneumonia, possible associated effusion, e aurora
--- NOTE | 2019-06-14 15:00 | P.PN ---
Subjective This is a pleasant 79-year-old male past medical history significant for coronary artery disease s/p stent placement 2010, diabetes mellitus, hypertension, dyslipidemia, peripheral vascular disease, chronic anemia, history of bladder cancer with chronic indwelling abreu catheter, thrombocytopenia, chronic renal failure, cognitive delay and chronic aspiration pneumonia. He follows in the office with Dr. Macedo in the office. he is seen and examined resting comfortably laying flat in bed in no acute distress. He denies chest pain or shortness of breath. He is continuing to cough. Continued on IV antibiotics for aspiration pneumonia. Laboratory data reviewed, WBC 2.7, hemoglobin 8.1, platelets 23, sodium 142, potassium 4.4, creatinine 1.67, magnesium 1.6, proBNP 8510. Blood pressure 117/60 156 afebrile maintaining oxygen saturation on room air. GENERAL: This is a 79-year-old male in no apparent distress at the time of my examination. HEENT: Head is atraumatic, normocephalic. Pupils are equal, round. Sclerae anicteric. Conjunctivae are clear. Mucous membranes of the mouth are moist. Neck is supple. There is no jugular venous distention. No carotid bruit is heard. LUNGS: Scattered course rhonchi throughout. Faint intermittent basilar rales. No wheezes. No chest wall tenderness is noted on palpation or with deep breathing. HEART: Regular rate and rhythm without murmurs, rubs or gallops. S1 and S2 hear d. EXTREMITIES: No evidence of peripheral edema and no calf tenderness noted. ASSESSMENT Aspiration pneumonia Chronic kidney disease Thrombocytopenia Hypertension Dyslipidemia Peripheral vascular disease History of coronary artery disease in 2010 status post stent placement, exact details unavailable Ischemic cardiomyopathy History of bladder cancer with chronic indwelling Abreu catheter PLAN Continue current medical regimen. Although his BNP is elevated he is quite comfortable and does not appear to be in acute heart failure. He is laying flat with no PND or orthopnea and no lower extremity edema. We will follow as needed, please feel free to call with further questions or concerns. Follow up with Dr. Macedo upon discharge. Nurse Practitioner note has been reviewed, I agree with a documented findings and plan of care. Patient was seen and examined. Objective - Vital Signs Vital signs: Vital Signs Temp 97.2 F L 06/14/19 05:00 Pulse 56 L 06/14/19 14:01 Resp 16 06/14/19 11:18 BP 117/61 06/14/19 11:18 Pulse Ox 97 06/14/19 11:18 Intake & Output 06/13/19 06/14/19 06/14/19 18:59 06:59 18:59 Intake Total 160 1440 160 Output Total 2200 400 100 Balance -2040 1040 60 Intake: Oral 160 1440 160 Output: Urine 2200 400 100 Uretheral (Abreu) 2100 400 100 Other: Voiding Method Indwelling Catheter Indwelling Catheter Indwelling Catheter - Labs CBC & Chem 7: 06/14/19 08:14 06/14/19 08:14 Labs: Abnormal Lab Results - Last 24 Hours (Table) 06/13/19 06/13/19 06/13/19 Range/Units 08:48 17:18 20:35 WBC (3.8-10.6) k/uL RBC (4.30-5.90) m/uL Hgb (13.0-17.5) gm/dL Hct (39.0-53.0) % MCV (80.0-100.0) fL RDW (11.5-15.5) % Plt Count (150-450) k/uL Lymphocytes # (1.0-4.8) k/uL Chloride (98-107) mmol/L BUN (9-20) mg/dL Creatinine (0.66-1.25) mg/dL Glucose (74-99) mg/dL POC Glucose (mg/dL) 116 H 243 H (75-99) mg/dL Iron 17 L (65-175) ug/dL Iron Saturation 6.91 L (15.00-50.00) Ferritin 400.3 H (22.0-322.0) ng/mL 06/14/19 06/14/19 06/14/19 Range/Units 07:04 08:14 08:14 WBC 2.7 L (3.8-10.6) k/uL RBC 2.42 L (4.30-5.90) m/uL Hgb 8.1 L (13.0-17.5) gm/dL Hct 25.8 L (39.0-53.0) % MCV 106.6 H (80.0-100.0) fL RDW 15.7 H (11.5-15.5) % Plt Count 23 L (150-450) k/uL Lymphocytes # 0.7 L (1.0-4.8) k/uL Chloride 108 H (98-107) mmol/L BUN 31 H (9-20) mg/dL Creatinine 1.67 H (0.66-1.25) mg/dL Glucose 206 H (74-99) mg/dL POC Glucose (mg/dL) 219 H (75-99) mg/dL Iron (65-175) ug/dL Iron Saturation (15.00-50.00) Ferritin (22.0-322.0) ng/mL 06/14/19 Range/Units 11:09 WBC (3.8-10.6) k/uL RBC (4.30-5.90) m/uL Hgb (13.0-17.5) gm/dL Hct (39.0-53.0) % MCV (80.0-100.0) fL RDW (11.5-15.5) % Plt Count (150-450) k/uL Lymphocytes # (1.0-4.8) k/uL Chloride (98-107) mmol/L BUN (9-20) mg/dL Creatinine (0.66-1.25) mg/dL Glucose (74-99) mg/dL POC Glucose (mg/dL) 274 H (75-99) mg/dL Iron (65-175) ug/dL Iron Saturation (15.00-50.00) Ferritin (22.0-322.0) ng/mL Microbiology - Last 24 Hours (Table) 06/11/19 20:35 Gram Stain - Final Sputum Sputum Culture - Final 06/11/19 13:57 Blood Culture - Preliminary Blood No Growth after 48 hours
--- NOTE | 2019-06-14 15:08 | P.PN ---
Subjective Progress Note Date: 06/14/19 Principal diagnosis: This is a 79-year-old male who was recently admitted with bilateral pneumonia right more so than left with possible aspiration and also having features of urinary tract infection and is being closely monitored. Patient was also found to be hypothermic and had features of sepsis. Multiple medical consultations are following. No acute overnight issues. Awaiting report from repeat barium swallow that was done today. Patient denies any chest pain, shortness of breath, or palpitations at this time. Patient is afebrile. Patient denies any nausea or vomiting and was nothing by mouth until swallow eval was done. Patient was having a swallow eval done at the bedside and tolerating nectar thickened apple juice. Will await report. Guarded prognosis. 06/14/2019 Patient is sitting up in bed in no acute distress eating breakfast and tolerating well. Patient is currently still on IV antibiotics in the form of meropenem and will continue at this time. Currently patient denies any chest pain, shortness of breath, or palpitations. Patient is afebrile. Patient denies any nausea or vomiting and is tolerating diet. Pulmonary and nephrology are following closely. Patient is on IV iron infusion per nephrology recommendations and will be receiving 2 more doses. Patient had a repeat chest x-ray today which which shows no significant interval change from previous x- ray. Patient is currently still on oxygen via nasal cannula at 2 L. Will evie nue to monitor closely. No acute overnight issues. Speech pathology has seen the patient again today and patient is currently tolerating a dysphagia level III chopped diet with nectar thickened liquids and is to continue maintaining aspiration precautions. Patient did much better today with eating and tolerating. Will continue to monitor. Guarded prognosis. Objective - Vital Signs Vital signs: Vital Signs Temp 97.2 F L 06/14/19 05:00 Pulse 56 L 06/14/19 14:01 Resp 16 06/14/19 11:18 BP 117/61 06/14/19 11:18 Pulse Ox 97 06/14/19 11:18 Intake & Output 06/13/19 06/14/19 06/14/19 18:59 06:59 18:59 Intake Total 160 1440 160 Output Total 2200 400 100 Balance -2039 1040 60 Intake: Oral 160 1440 160 Output: Urine 2200 400 100 Uretheral (Romero) 2100 400 100 Other: Voiding Method Indwelling Catheter Indwelling Catheter Indwelling Catheter - Exam Gen: This is a 79 year old male sitting up in bed in no acute distress. Vital signs are stable. Temp is 97.2F, pulse is 53, respirations are 16, blood pressure is 117/61, oxygen saturation is 97% on 2 L of oxygen via nasal cannula. HEENT: Head is atraumatic, normocephalic. Pupils equal, round. Sclerae is anicteric. NECK: Supple. No JVD. No lymphadenopathy. No thyromegaly. LUNGS:Diminished breath sounds at the bases with expiratory wheezes noted. Scattered rhonchi and crackles noted throughout. No intercostal retractions. Slight improvement from yesterday HEART: S1 and S2 muffled. ABDOMEN: Soft. Bowel sounds are present. No masses. No tenderness. EXTREMITIES: No pedal edema. No calf tenderness. NEUROLOGICAL: Patient is awake, alert and oriented x2-3. Cranial nerves 2 through 12 are grossly intact. - Labs CBC & Chem 7: 06/14/19 08:14 06/14/19 08:14 Labs: Abnormal Lab Results - Last 24 Hours (Table) 06/13/19 06/13/19 06/13/19 Range/Units 08:48 17:18 20:35 WBC (3.8-10.6) k/uL RBC (4.30-5.90) m/uL Hgb (13.0-17.5) gm/dL Hct (39.0-53.0) % MCV (80.0-100.0) fL RDW (11.5-15.5) % Plt Count (150-450) k/uL Lymphocytes # (1.0-4.8) k/uL Chloride (98-107) mmol/L BUN (9-20) mg/dL Creatinine (0.66-1.25) mg/dL Glucose (74-99) mg/dL POC Glucose (mg/dL) 116 H 243 H (75-99) mg/dL Iron 17 L (65-175) ug/dL Iron Saturation 6.91 L (15.00-50.00) Ferritin 400.3 H (22.0-322.0) ng/mL 06/14/19 06/14/19 06/14/19 Range/Units 07:04 08:14 08:14 WBC 2.7 L (3.8-10.6) k/uL RBC 2.42 L (4.30-5.90) m/uL Hgb 8.1 L (13.0-17.5) gm/dL Hct 25.8 L (39.0-53.0) % MCV 106.6 H (80.0-100.0) fL RDW 15.7 H (11.5-15.5) % Plt Count 23 L (150-450) k/uL Lymphocytes # 0.7 L (1.0-4.8) k/uL Chloride 108 H (98-107) mmol/L BUN 31 H (9-20) mg/dL Creatinine 1.67 H (0.66-1.25) mg/dL Glucose 206 H (74-99) mg/dL POC Glucose (mg/dL) 219 H (75-99) mg/dL Iron (65-175) ug/dL Iron Saturation (15.00-50.00) Ferritin (22.0-322.0) ng/mL 06/14/19 Range/Units 11:09 WBC (3.8-10.6) k/uL RBC (4.30-5.90) m/uL Hgb (13.0-17.5) gm/dL Hct (39.0-53.0) % MCV (80.0-100.0) fL RDW (11.5-15.5) % Plt Count (150-450) k/uL Lymphocytes # (1.0-4.8) k/uL Chloride (98-107) mmol/L BUN (9-20) mg/dL Creatinine (0.66-1.25) mg/dL Glucose (74-99) mg/dL POC Glucose (mg/dL) 274 H (75-99) mg/dL Iron (65-175) ug/dL Iron Saturation (15.00-50.00) Ferritin (22.0-322.0) ng/mL Microbiology - Last 24 Hours (Table) 06/11/19 20:35 Gram Stain - Final Sputum Sputum Culture - Final 06/11/19 13:57 Blood Culture - Preliminary Blood No Growth after 48 hours Assessment and Plan Assessment: Bilateral pneumonia, right more than the left, possibly aspiration, possibly hospital-acquired with early sepsis, present on admission Small bilateral pleural effusion Hypothermia, present on admission secondary to sepsis, improved Change in mental status, metabolic encephalopathy, acute on chronic Mental handicap history Mild pancytopenia of undetermined origin Increased creatinine with possible chronic kidney disease stage III History of recent left leg cellulitis History of recent acute hypoxic respiratory failure secondary to congestive heart failure acute exacerbation, acute on chronic systolic function, as well as aspiration pneumonia Diabetes mellitus type 2 Hypertension Hyperlipidemia history of myocardial infarction History of anti-mitochondrial antibody positive recently History of bladder tumor history of coronary artery disease/stent History of cataracts Remote history of nicotine dependence Full code Recommendations and discussion: Recommend to continue current medications, management, and symptomatic treatment. Multiple medical consultations are following. Continue to encourage incentive spirometer use and keeping aspiration precautions. Case management and social work are following as they are working with family about possible palliative care. Family is agreeable to palliative care per case management. Patient will also be discharged with home care. Resources have been provided. Due to multiple complex medical issues, prognosis is extremely guarded and poor. Further recommendations to follow. Possible discharge in 24-48 hours.
[2019-06-14 17:05] LABS: Glucose,Whole Blood 386 mg/dL (75-99)
[2019-06-14] MEDS: FLUCONAZOLE 100 MG TAB PO SCH (20:01)
[2019-06-14 20:42] LABS: Glucose,Whole Blood 297 mg/dL (75-99)
--- NOTE | 2019-06-14 22:53 | P.PN ---
Subjective Progress Note Date: 06/14/19 This is a 79-year-old male who resides at [facility] with the legal guardian which is his brother. 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 Patient had a recent ERCP and stenting at [facility] with findings of chronic pancreatitis and pseudocyst biliary stricture. 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 There is very minimal portal inflammation with mild periportal fibrosis. It was thought that the alkaline phosphatase most likely secondary to vascular or cardiac compromise rather than biliary cause. Patient also has underlying history of bladder cancer with chronic Romero catheter, diabetes mellitus type 2, intellectual delay. On previous admission to this, patient was found to have Klebsiella oxytoca bacteremia and positive urinary tract infection. He was transferred to [facility] and most likely completed course of antibiotics for this. Klebsiella oxytoca sepsis susceptible to ceftriaxone. In the recent past, patient has been treated at the [facility] for cellulitis of the left lower extremity with Bactrim and this was improving. He now presents with some increasing weakness, increasing shortness of breath and there were concerns pneumonia. He has abnormal chest x-ray and because of his history of a consult was requested. If this time the patient is sitting upright eating his lunch without great difficulties but does have a moist cough at times. He is doing much discomforts. He however is incontinent of stool. Nursing is concerned about rash. 06/14/2019 the patient is feeling somewhat better today. Sitting upright having his breathing treatment he is much less short of breath he has much less cough is more comfortable. Objective - Vital Signs Vital signs: Vital Signs Temp 97.6 F 06/14/19 21:00 Pulse 53 L 06/14/19 21:00 Resp 18 06/14/19 21:00 BP 125/67 06/14/19 21:00 Pulse Ox 99 06/14/19 21:00 Intake & Output 06/14/19 06/14/19 06/15/19 06:59 18:59 06:59 Intake Total 1440 160 Output Total 400 900 Balance 1040 -740 Intake: Oral 1440 160 Output: Urine 400 900 Uretheral (Romero) 400 300 Other: Voiding Method Indwelling Catheter Indwelling Catheter # Voids 1 # Bowel Movements 1 - Exam Gen: This is a 79-year-old male. Patient appears thin with muscle wasting to the extremities. He appears to be in no acute distress. HEENT: Head is atraumatic, normocephalic. Pupils equal, round. Sclerae is anicteric. NECK: Supple. No JVD. No lymphadenopathy. No thyromegaly. LUNGS: They're symmetrical bilaterally entry however there are bibasilar crackles and some expiratory wheezes it is noted has a bit of a moist cough. Nursing staff does have him sitting upright he is able to talk without difficulty with his eating HEART: Regular rate and rhythm. Systolic murmur. ABDOMEN: Soft. Bowel sounds are present. No masses. No tenderness. Romero catheter draining akila urine. EXTREMITIES: No pedal edema. Dorsalis pedis +1 bilateral. Mild pretibial edema and erythema slightly worse to the left. No drainage noted. NEUROLOGICAL: Patient is awake, alert and oriented x2 Skin there is concerns to a rash in the perineum. This is markedly improved within the last day. Patient is more comfortable. - Labs CBC & Chem 7: 06/14/19 08:14 06/14/19 08:14 Labs: Abnormal Lab Results - Last 24 Hours (Table) 06/14/19 06/14/19 06/14/19 Range/Units 07:04 08:14 08:14 WBC 2.7 L (3.8-10.6) k/uL RBC 2.42 L (4.30-5.90) m/uL Hgb 8.1 L (13.0-17.5) gm/dL Hct 25.8 L (39.0-53.0) % MCV 106.6 H (80.0-100.0) fL RDW 15.7 H (11.5-15.5) % Plt Count 23 L (150-450) k/uL Lymphocytes # 0.7 L (1.0-4.8) k/uL Chloride 108 H (98-107) mmol/L BUN 31 H (9-20) mg/dL Creatinine 1.67 H (0.66-1.25) mg/dL Glucose 206 H (74-99) mg/dL POC Glucose (mg/dL) 219 H (75-99) mg/dL 06/14/19 06/14/19 06/14/19 Range/Units 11:09 17:01 20:40 WBC (3.8-10.6) k/uL RBC (4.30-5.90) m/uL Hgb (13.0-17.5) gm/dL Hct (39.0-53.0) % MCV (80.0-100.0) fL RDW (11.5-15.5) % Plt Count (150-450) k/uL Lymphocytes # (1.0-4.8) k/uL Chloride (98-107) mmol/L BUN (9-20) mg/dL Creatinine (0.66-1.25) mg/dL Glucose (74-99) mg/dL POC Glucose (mg/dL) 274 H 386 H 297 H (75-99) mg/dL Microbiology - Last 24 Hours (Table) 06/11/19 13:57 Blood Culture - Preliminary Blood No Growth after 72 hours 06/11/19 20:35 Gram Stain - Final Sputum Sputum Culture - Final Laboratory Results WBC 2.7 k/uL (3.8-10.6) L 06/14/19 08:14 RBC 2.42 m/uL (4.30-5.90) L 06/14/19 08:14 Hgb 8.1 gm/dL (13.0-17.5) L 06/14/19 08:14 Hct 25.8 % (39.0-53.0) L 06/14/19 08:14 MCV 106.6 fL (80.0-100.0) H 06/14/19 08:14 MCH 33.6 pg (25.0-35.0) 06/14/19 08:14 MCHC 31.5 g/dL (31.0-37.0) 06/14/19 08:14 RDW 15.7 % (11.5-15.5) H 06/14/19 08:14 Plt Count 23 k/uL (150-450) L 06/14/19 08:14 Neutrophils % 64 % 06/14/19 08:14 Lymphocytes % 26 % 06/14/19 08:14 Monocytes % 5 % 06/14/19 08:14 Eosinophils % 2 % 06/14/19 08:14 Basophils % 0 % 06/14/19 08:14 Neutrophils # 1.7 k/uL (1.3-7.7) 06/14/19 08:14 Lymphocytes # 0.7 k/uL (1.0-4.8) L 06/14/19 08:14 Monocytes # 0.1 k/uL (0-1.0) 06/14/19 08:14 Eosinophils # 0.1 k/uL (0-0.7) 06/14/19 08:14 Basophils # 0.0 k/uL (0-0.2) 06/14/19 08:14 Manual Slide Review Performed 06/12/19 07:38 Hypochromasia Moderate 06/14/19 08:14 Poikilocytosis Slight 06/11/19 12:15 Anisocytosis Slight 06/13/19 08:48 Macrocytosis Moderate 06/14/19 08:14 Sodium 142 mmol/L (137-145) 06/14/19 08:14 Potassium 4.4 mmol/L (3.5-5.1) 06/14/19 08:14 Chloride 108 mmol/L (98-107) H 06/14/19 08:14 Carbon Dioxide 29 mmol/L (22-30) 06/14/19 08:14 Anion Gap 5 mmol/L 06/14/19 08:14 BUN 31 mg/dL (9-20) H 06/14/19 08:14 Creatinine 1.67 mg/dL (0.66-1.25) H 06/14/19 08:14 Est GFR (CKD-EPI)AfAm 45 (>60 ml/min/1.73 sqM) 06/14/19 08:14 Est GFR (CKD-EPI)NonAf 39 (>60 ml/min/1.73 sqM) 06/14/19 08:14 Glucose 206 mg/dL (74-99) H 06/14/19 08:14 POC Glucose (mg/dL) 297 mg/dL (75-99) H 06/14/19 20:40 POC Glu Xm1 Tank Driver ID Melissa Jones 06/14/19 20:40 Plasma Lactic Acid Alejandro 1.2 mmol/L (0.7-2.0) 06/12/19 07:38 Calcium 8.7 mg/dL (8.4-10.2) 06/14/19 08:14 Magnesium 1.6 mg/dL (1.6-2.3) 06/14/19 08:14 Iron 17 ug/dL (65-175) L 06/13/19 08:48 TIBC 246 ug/dL (228-460) 06/13/19 08:48 Iron Saturation 6.91 (15.00-50.00) L 06/13/19 08:48 Ferritin 400.3 ng/mL (22.0-322.0) H 06/13/19 08:48 Total Bilirubin 0.4 mg/dL (0.2-1.3) 06/11/19 12:15 AST 23 U/L (17-59) 06/11/19 12:15 ALT 27 U/L (21-72) 06/11/19 12:15 Alkaline Phosphatase 176 U/L (38-126) H 06/11/19 12:15 Creatine Kinase <20 U/L (55-170) L 06/11/19 12:15 NT-Pro-B Natriuret Pep 8510 pg/mL 06/13/19 08:48 Total Protein 5.5 g/dL (6.3-8.2) L 06/11/19 12:15 Albumin 2.6 g/dL (3.5-5.0) L 06/11/19 12:15 Cortisol 18 ug/dL 06/12/19 07:38 Urine Color Light Yellow 06/11/19 12:20 Urine Appearance Clear (Clear) 06/11/19 12:20 Urine pH 5.0 (5.0-8.0) 06/11/19 12:20 Ur Specific [place] 1.007 (1.001-1.035) 06/11/19 12:20 Urine Protein Negative (Negative) 06/11/19 12:20 Urine Glucose (UA) Negative (Negative) 06/11/19 12:20 Urine Ketones Negative (Negative) 06/11/19 12:20 Urine Blood Negative (Negative) 06/11/19 12:20 Urine Nitrite Negative (Negative) 06/11/19 12:20 Urine Bilirubin Negative (Negative) 06/11/19 12:20 Urine Urobilinogen <2.0 mg/dL (<2.0) 06/11/19 12:20 Ur Leukocyte Esterase Trace (Negative) H 06/11/19 12:20 Urine RBC 1 /hpf (0-5) 06/11/19 12:20 Urine WBC 4 /hpf (0-5) 06/11/19 12:20 Urine Bacteria Rare /hpf (None) H 06/11/19 12:20 Hyaline Casts 8 /lpf (0-2) H 06/11/19 12:20 Urine Mucus Rare /hpf (None) H 06/11/19 12:20 Influenza Type A RNA Not Detected (Not Detectd) 06/11/19 15:45 Influenza Type B (PCR) Not Detected (Not Detectd) 06/11/19 15:45 Microbiology 06/11/19 13:57 Blood Blood Culture - Preliminary No Growth after 72 hours 06/11/19 20:35 Sputum Gram Stain - Final 06/11/19 20:35 Sputum Sputum Culture - Final Assessment and Plan (1) Hypothermia Current Visit: Yes Status: Acute Code(s): T68.XXXA - HYPOTHERMIA, INITIAL ENCOUNTER SNOMED Code(s): 226335136 (2) Pneumonia Narrative/Plan: 79-year-old male who has a compromised mental status has been having some difficulties with swallowing and maneuvers are utilized to help him eat. Relates his appetite is good but there is concerns for aspiration as etiology of the current worsening bilateral pneumonia. Admission he had hypothermia evidence of pneumonia dehydration and acute renal failure. He is now feeling somewhat better. However there is evidence of pancytopenia and platelets have precipitously dropped since the last admission. With this in the concerns pneumonia we'll alter from Zosyn to meropenem given the patient's hospitalization, concerns to aspiration, concerns to significant toxicity from the piperacillin tazobactam. Also meropenem is being utilize with concerns to resistant gram-negative bacilli and significant toxicity from Zosyn. Cultures are in process. Hypothermia has resolved and he has had this in the past Pulmonary critical care have been consulted. 06/14/2019 the patient is now considerably improved as far as his shortness of breath and wet cough. He is improved aeration in is comfortable. He is eating without difficulties. The rash is now much improved. Antibiotic therapy was altered to meropenem with concerns to gram-negative pneumonia and aspiration as well as the significant worsening thrombocytopenia. This is stabilized today. Overall treatment plan is being finalized. Current Visit: Yes Status: Acute Code(s): J18.9 - PNEUMONIA, UNSPECIFIED ORGANISM SNOMED Code(s): 878406137 (3) ARF (acute renal failure) Current Visit: No Status: Acute Code(s): N17.9 - ACUTE KIDNEY FAILURE, UNSPECIFIED SNOMED Code(s): 54390615
[2019-06-15] MEDS: MEROPENEM 1 GM in SODIUM CHLORIDE 0.9% 100 ML IVPB SCH ×2 (04:56→16:38)
[2019-06-15 07:10] LABS: Glucose,Whole Blood 59 mg/dL (75-99)
[2019-06-15 07:47] LABS: Glucose,Whole Blood 108 mg/dL (75-99)
[2019-06-15] MEDS: INSULIN ASPART (NovoLOG) 100 UNIT/ML VIAL SQ SCH ×7 (08:04→20:00)
[2019-06-15] MEDS: LACTOBACILLUS ACIDOPH & BULGAR 1 EACH PACKET PO SCH (08:19)
[2019-06-15] MEDS: URSODIOL 300 MG CAP PO SCH ×3 (08:19→18:09)
[2019-06-15] MEDS: DIVALPROEX ER 500 MG TAB.ER.24H PO SCH (08:20)
[2019-06-15] MEDS: NIFEdipine XL 30 MG TAB.ER.24 PO SCH (08:20)
[2019-06-15] MEDS: CHOLECALCIFEROL 1,000 UNIT TAB PO SCH (08:27)
[2019-06-15] MEDS: LISINOPRIL 5 MG TAB PO SCH (08:27)
[2019-06-15] MEDS: PANTOPRAZOLE 40 MG TABLET PO SCH (08:27)
[2019-06-15] MEDS: FERROUS SULFATE 325 MG TAB PO SCH ×2 (08:27→20:00)
[2019-06-15] MEDS: LEVOTHYROXINE 50 MCG TAB PO SCH (08:27)
[2019-06-15] MEDS: CYANOCOBALAMIN 500 MCG TAB PO SCH (08:27)
[2019-06-15] MEDS: SODIUM FERRIC GLUCONAT-SUCROSE 125 MG in SODIUM CHLORIDE 0.9% 100 ML IVPB SCH (08:28)
[2019-06-15] MEDS: TAMSULOSIN 0.4 MG CAP.ER.24H PO SCH (08:28)
[2019-06-15] MEDS: HEPARIN SODIUM,PORCINE 5,000 UNIT/ML 1 ML VIAL SQ SCH ×2 (08:28→20:00)
[2019-06-15] MEDS: NYSTATIN 100,000 UNIT/GM POWD 15 GM TOPICAL SCH ×2 (08:29→20:00)
[2019-06-15 08:47] LABS: Calcium 8.6 mg/dL (8.4-10.2); Magnesium 1.8 mg/dL (1.6-2.3); Potassium 3.9 mmol/L (3.5-5.1)
[2019-06-15] MEDS: ALBUTEROL NEBULIZED 2.5 MG/3 ML INHALATION SCH ×3 (09:10→20:28)
--- NOTE | 2019-06-15 11:07 | P.PN ---
Subjective Patient is seen in follow-up for acute kidney injury on chronic kidney disease. Patient is chronic kidney disease stage III with baseline creatinine in the range of 1.3-1.5. Renal function is stable. Denies chest pain or shortness of breath. He is nonoliguric. Has a Romero catheter. Blood sugar was low this morning. Vital signs are stable. General: The patient appeared well nourished and normally developed. HEENT: Head exam is unremarkable. Neck is without jugular venous distension. LUNGS: Lungs are clear to auscultation and percussion. Breath sounds decreased. HEART: Rate and Rhythm are regular. First and second heart sounds normal. No murmurs, rubs or gallops. ABDOMEN: Abdominal exam reveals normal bowel sounds. Non-tender and non- distended. No evidence of peritonitis. EXTREMITITES: No clubbing, cyanosis, or edema. Objective - Vital Signs Vital signs: Vital Signs Temp 97.6 F 06/15/19 09:00 Pulse 60 06/15/19 09:20 Resp 16 06/15/19 08:30 BP 151/72 06/15/19 08:30 Pulse Ox 95 06/15/19 08:30 Intake & Output 06/14/19 06/15/19 06/15/19 18:59 06:59 18:59 Intake Total 160 200 Output Total 900 700 Balance -740 -500 Intake: Intake, IV Titration 200 Amount Meropenem 1 gm In Sodium 200 Chloride 0.9% 100 ml @ 200 mls/hr IVPB Q12H [facility] Rx#:[id number] Oral 160 Output: Urine 900 700 Uretheral (Romero) 300 700 Other: Voiding Method Indwelling Catheter Indwelling Catheter Indwelling Catheter # Voids 1 # Bowel Movements 1 - Labs CBC & Chem 7: 06/14/19 08:14 06/15/19 06:56 Labs: Abnormal Lab Results - Last 24 Hours (Table) 06/14/19 06/14/19 06/14/19 Range/Units 11:09 17:01 20:40 Chloride (98-107) mmol/L Carbon Dioxide (22-30) mmol/L BUN (9-20) mg/dL Creatinine (0.66-1.25) mg/dL Glucose (74-99) mg/dL POC Glucose (mg/dL) 274 H 386 H 297 H (75-99) mg/dL 06/15/19 06/15/19 06/15/19 Range/Units 06:56 07:09 07:45 Chloride 111 H (98-107) mmol/L Carbon Dioxide 31 H (22-30) mmol/L BUN 28 H (9-20) mg/dL Creatinine 1.65 H (0.66-1.25) mg/dL Glucose 40 L* (74-99) mg/dL POC Glucose (mg/dL) 59 L 108 H (75-99) mg/dL Microbiology - Last 24 Hours (Table) 06/11/19 13:57 Blood Culture - Preliminary Blood No Growth after 72 hours 06/11/19 20:35 Gram Stain - Final Sputum Sputum Culture - Final Assessment and Plan Plan: Assessment: 1. Acute kidney injury mostly prerenal secondary to infection and diuresis. Renal function stable. Creatinine 1.65 today. UA benign. No evidence of hydronephrosis noted on kidney ultrasound. Right kidney noted to be small. 2. Pneumonia with concern for aspiration. Maintained on antibiotics. 3. Chronic kidney disease stage III secondary to nephrosclerosis with baseline creatinine in the range of 1.3-1.5. 4. Anemia of chronic kidney disease. Iron deficiency noted. 5. Insulin-dependent diabetes mellitus. 6. Hypertension with chronic kidney disease. 7. Chronic kidney disease mineral bone disease maintained on calcitriol. Plan: Encouraged oral intake. Remains off IV fluids. Avoid nephrotoxins. Can continue with lisinopril for now but to hold if systolic blood pressure less than 120. IV iron 3 doses. Second dose today.
[2019-06-15 11:17] LABS: Glucose,Whole Blood 217 mg/dL (75-99)
--- NOTE | 2019-06-15 11:27 | P.PN ---
Subjective Progress Note Date: 06/15/19 Principal diagnosis: Acute hypoxic respiratory failure secondary to aspiration pneumonia. This is a 79-year-old male patient with known history of developmental delay who is known to me from previous hospitalization. The patient lives in a [facility] and he got transferred again to our hospital for increased confusion, unable to obtain a temperature at home, cough and congestion. He came into the ED and the patient was given a chest x-ray when he was found to have some limited bibasilar pulmonary infiltrates and for that reason he was admitted to the hospital. Currently is on oxygen at 2 L per minute nasal cannula. No chest pain. He is more interactive today. He was seen by ID and he was placed on IV Merrem. During his last evaluation from April 2019, I have non-a swallow evaluation of this patient and the patient was found to have repeated transient penetration with thin consistency with and without a straw and bev aspiration likely from residuals without eliciting a cough reflex. during his earlier hospitalization, I saw this patient in the intensive care unit for sepsis. At that time he was having some swelling and erythema in his lower extremities and he was treated for lower extremity cellulitis and aspiration pneumonia left more than right. His comorbidities include diabetes mellitus type 2, stage III kidney disease, previous history of biliary cirrhosis with biopsy and chronic cholestasis and he has undergone a pancreatic stent insertion, hypertension, hyperlipidemia, CAD and previous AK, mentally handicapped and developmental de lay, CAD and stenting, bladder tumor and previous history of smoking. He has a full CODE STATUS. Patient was reevaluated today on 06/13/2019, remains on treatment for presumptive aspiration pneumonia, patient has many other medical problems including chronic kidney disease, coronary artery disease and previous stent placement, ischemic cardiomyopathy, bladder cancer, and history of indwelling Fo chan catheter, thrombocytopenia, hypertension, dyslipidemia, and medical debility. Patient is not a great historian. But he seems to be comfortable. Labs showed the risk of 7.2 hemoglobin is 9 lites are normal BUN is 34 creatinine is 1.65 has elevated BNP level of 8510. Chest x-ray is not suggest patria of interstitial edema, mostly has bibasilar infiltrates. Which seem to be worsening since admission. The patient is seen today 06/14/2019 in follow-up on the regular medical floor. He is awake and alert in no acute distress. Currently resting comfortably in bed. Maintaining good O2 saturations in the mid 90s on 2 L/m per nasal cannula. He is afebrile. Sputum culture reveals no growth. Blood culture reveals no growth. White count 2.7. Hemoglobin 8.1. Creatinine 1.67. He remains on bronchodilators and antibiotics in the form of meropenem. The patient is seen today 06/15/2018 in follow-up on the regular medical floor. He is currently resting comfortably in bed. Awake and alert in no acute distress. He denies any worsening shortness of breath, cough or congestion. He is maintaining good O2 saturations in the mid 90s on 2 L/m per nasal cannula. He's been afebrile. Hemodynamically stable. Blood and sputum cultures reveal no growth. Sodium 144. Potassium 3.9. Creatinine 1.65. He remains on meropenem. He did have an episode of hypoglycemia with a blood glucose of 40 earlier this morning. Currently to 217. Objective - Vital Signs Vital signs: Vital Signs Temp 97.6 F 06/15/19 09:00 Pulse 60 06/15/19 09:20 Resp 16 06/15/19 08:30 BP 151/72 06/15/19 08:30 Pulse Ox 95 06/15/19 08:30 Intake & Output 06/14/19 06/15/19 06/15/19 18:59 06:59 18:59 Intake Total 160 200 Output Total 900 700 Balance -740 -500 Intake: Intake, IV Titration 200 Amount Meropenem 1 gm In Sodium 200 Chloride 0.9% 100 ml @ 200 mls/hr IVPB Q12H [facility] Rx#:[id number] Oral 160 Output: Urine 900 700 Uretheral (Romero) 300 700 Other: Voiding Method Indwelling Catheter Indwelling Catheter Indwelling Catheter # Voids 1 # Bowel Movements 1 - Exam GENERAL EXAM: Alert, pleasant, 79-year-old gentleman currently on 2 L of oxygen with a pulse ox of 95% comfortable in no apparent distress. Head: Atraumatic, normocephalic. HEENT: PERRLA, EOMI, no icterus. Dry mucous membranes. No neck masses no JVD no stridor. CHEST: No chest wall deformity. Symmetrical expansion. LUNGS: Equal air entry with bilateral lower lobe crackles over posterior lower bases CVS: Regular rate and rhythm, normal S1 and S2, no gallops, no murmurs, no rubs ABDOMEN: Soft, nontender. No hepatosplenomegaly, normal bowel sounds, no guarding or rigidity. EXTREMITIES: No clubbing, no edema, no cyanosis, 2+ pulses and upper and lower extremities. MUSCULOSKELETAL: Muscle strength and tone normal. SPINE: No scoliosis or deformity SKIN: No rashes CENTRAL NERVOUS SYSTEM: Alert and oriented to self only. - Labs CBC & Chem 7: 06/14/19 08:14 06/15/19 06:56 Labs: Abnormal Lab Results - Last 24 Hours (Table) 06/14/19 06/14/19 06/15/19 Range/Units 17:01 20:40 06:56 Chloride 111 H (98-107) mmol/L Carbon Dioxide 31 H (22-30) mmol/L BUN 28 H (9-20) mg/dL Creatinine 1.65 H (0.66-1.25) mg/dL Glucose 40 L* (74-99) mg/dL POC Glucose (mg/dL) 386 H 297 H (75-99) mg/dL 06/15/19 06/15/19 Range/Units 07:09 07:45 Chloride (98-107) mmol/L Carbon Dioxide (22-30) mmol/L BUN (9-20) mg/dL Creatinine (0.66-1.25) mg/dL Glucose (74-99) mg/dL POC Glucose (mg/dL) 59 L 108 H (75-99) mg/dL Microbiology - Last 24 Hours (Table) 06/11/19 13:57 Blood Culture - Preliminary Blood No Growth after 72 hours 06/11/19 20:35 Gram Stain - Final Sputum Sputum Culture - Final Assessment and Plan Assessment: Impression: #1 Acute hypoxic respiratory failure secondary to suspected aspiration pneumonia. Currently on meropenem. #2 Chronic kidney disease, stage III. #4 Hypertension. #5 Hyperlipidemia. #6 Previous myocardial infarction. #7 History of positive anti-mitochondrial antibody. #8 History of bladder tumor. #9 Remote history of chronic tobacco dependence. Plan: The patient was seen and evaluated by Dr. Blakely. He is stable from the pulmonary standpoint. Okay for discharge once cleared medically. I, the cosigning physician, performed a history & physical examination of the patient. Lungs sounds with basilar crackles. Maintaining good O2 saturations in the 90s on 2 L/m per nasal cannula. I discussed the assessment and plan of care with my nurse practitioner, Donna Henning. I attest to the above note as dictated by her.
--- NOTE | 2019-06-15 15:38 | P.PN ---
Subjective Progress Note Date: 06/15/19 Principal diagnosis: This is a 79-year-old male who was recently admitted with bilateral pneumonia right more so than left with possible aspiration and also having features of urinary tract infection and is being closely monitored. Patient was also found to be hypothermic and had features of sepsis. Multiple medical consultations are following. No acute overnight issues. Awaiting report from repeat barium swallow that was done today. Patient denies any chest pain, shortness of breath, or palpitations at this time. Patient is afebrile. Patient denies any nausea or vomiting and was nothing by mouth until swallow eval was done. Patient was having a swallow eval done at the bedside and tolerating nectar thickened apple juice. Will await report. Guarded prognosis. 06/14/2019 Patient is sitting up in bed in no acute distress eating breakfast and tolerating well. Patient is currently still on IV antibiotics in the form of meropenem and will continue at this time. Currently patient denies any chest pain, shortness of breath, or palpitations. Patient is afebrile. Patient denies any nausea or vomiting and is tolerating diet. Pulmonary and nephrology are following closely. Patient is on IV iron infusion per nephrology recommendations and will be receiving 2 more doses. Patient had a repeat chest x-ray today which which shows no significant interval change from previous x- ray. Patient is currently still on oxygen via nasal cannula at 2 L. Will evie nue to monitor closely. No acute overnight issues. Speech pathology has seen the patient again today and patient is currently tolerating a dysphagia level III chopped diet with nectar thickened liquids and is to continue maintaining aspiration precautions. Patient did much better today with eating and tolerating. Will continue to monitor. Guarded prognosis. 06/15/2019 Patient is sitting up in bed in no acute distress. Patient is currently receiving iron infusions per nephrology recommendations on #2 of 3. [facility] [place] is at the bedside. Per nursing staff patient had low rectal times overnight with a repeat this morning showing 97.6F. Patient was put on a bear hugger for temp regulation and is being closely monitored. Pulmonary and nephrology are following. Patient had an episode of hypoglycemia this morning and was 40 and was rechecked after orange juice administration and was normal. Will continue to monitor closely. Patient is currently maintained on IV antibiotics and will continue at this time. Is denying any chest pain, shortness of breath, or palpitations at this time. Patient denies any nausea or vomiting and is tolerating diet. Patient is currently tolerating his nectar thickened liquids with no choking issues. Guarded prognosis. Objective - Vital Signs Vital signs: Vital Signs Temp 100 F H 06/15/19 12:09 Pulse 66 06/15/19 12:37 Resp 17 06/15/19 12:09 BP 128/62 06/15/19 12:09 Pulse Ox 93 L 06/15/19 12:09 Intake & Output 06/14/19 06/15/19 06/15/19 18:59 06:59 18:59 Intake Total 160 200 Output Total 900 700 100 Balance -740 -500 -100 Intake: Intake, IV Titration 200 Amount Meropenem 1 gm In Sodium 200 Chloride 0.9% 100 ml @ 200 mls/hr IVPB Q12H [facility] Rx#:[id number] Oral 160 Output: Urine 900 700 100 Uretheral (Romero) 300 700 100 Other: Voiding Method Indwelling Catheter Indwelling Catheter Indwelling Catheter # Voids 1 # Bowel Movements 1 - Exam Gen: This is a 79 year old male sitting up in bed in no acute distress. Vital signs are stable. Temp is 97.6F rectal, pulse is 72, respirations are 16, blood pressure is 151/72, oxygen saturation is 95% on 2 L of oxygen via nasal cannula. HEENT: Head is atraumatic, normocephalic. Pupils equal, round. Sclerae is anicteric. NECK: Supple. No JVD. No lymphadenopathy. No thyromegaly. LUNGS:Diminished breath sounds at the bases with expiratory wheezes noted. Scattered crackles noted at the bases. No intercostal retractions. Slight improvement from yesterday HEART: S1 and S2 muffled. ABDOMEN: Soft. Bowel sounds are present. No masses. No tenderness. EXTREMITIES: No pedal edema. No calf tenderness. NEUROLOGICAL: Patient is awake, alert and oriented x2-3. Cranial nerves 2 through 12 are grossly intact. - Labs CBC & Chem 7: 06/14/19 08:14 06/15/19 06:56 Labs: Abnormal Lab Results - Last 24 Hours (Table) 06/14/19 06/14/19 06/15/19 Range/Units 17:01 20:40 06:56 Chloride 111 H (98-107) mmol/L Carbon Dioxide 31 H (22-30) mmol/L BUN 28 H (9-20) mg/dL Creatinine 1.65 H (0.66-1.25) mg/dL Glucose 40 L* (74-99) mg/dL POC Glucose (mg/dL) 386 H 297 H (75-99) mg/dL 06/15/19 06/15/19 06/15/19 Range/Units 07:09 07:45 11:15 Chloride (98-107) mmol/L Carbon Dioxide (22-30) mmol/L BUN (9-20) mg/dL Creatinine (0.66-1.25) mg/dL Glucose (74-99) mg/dL POC Glucose (mg/dL) 59 L 108 H 217 H (75-99) mg/dL Microbiology - Last 24 Hours (Table) 06/11/19 13:57 Blood Culture - Preliminary Blood No Growth after 72 hours 06/11/19 20:35 Gram Stain - Final Sputum Sputum Culture - Final Assessment and Plan Assessment: Bilateral pneumonia, right more than the left, possibly aspiration, possibly hospital-acquired with early sepsis, present on admission Small bilateral pleural effusion Hypothermia, present on admission secondary to sepsis, improved Change in mental status, metabolic encephalopathy, acute on chronic Mental handicap history Mild pancytopenia of undetermined origin Increased creatinine with possible chronic kidney disease stage III History of recent left leg cellulitis History of recent acute hypoxic respiratory failure secondary to congestive heart failure acute exacerbation, acute on chronic systolic function, as well as aspiration pneumonia Diabetes mellitus type 2 Hypertension Hyperlipidemia history of myocardial infarction History of anti-mitochondrial antibody positive recently History of bladder tumor history of coronary artery disease/stent History of cataracts Remote history of nicotine dependence Full code Recommendations and discussion: Recommend to continue current medications, management, and symptomatic treatment. Will continue to monitor closely. Multiple medical consultations are following. Case management and social work are following as they are working with family about possible palliative care. Social work to follow-up with discharge plans as there may be issues with returning to the [facility] home where he was originally residing. Family is agreeable to palliative care per case management. Patient will also be discharged with home care. Resources have be en provided. Due to multiple complex medical issues, prognosis is extremely guarded and poor. Further recommendations to follow. Possible discharge in 24- 48 hours.
[2019-06-15 17:16] LABS: Glucose,Whole Blood 144 mg/dL (75-99)
[2019-06-15] MEDS: FLUCONAZOLE 100 MG TAB PO SCH (18:09)
[2019-06-15 19:37] LABS: Glucose,Whole Blood 166 mg/dL (75-99)
[2019-06-16] MEDS: MEROPENEM 1 GM in SODIUM CHLORIDE 0.9% 100 ML IVPB SCH ×2 (04:43→16:10)
[2019-06-16 07:41] LABS: Glucose,Whole Blood 78 mg/dL (75-99)
[2019-06-16] MEDS: ALBUTEROL NEBULIZED 2.5 MG/3 ML INHALATION SCH ×3 (08:00→20:04)
[2019-06-16] MEDS: SODIUM FERRIC GLUCONAT-SUCROSE 125 MG in SODIUM CHLORIDE 0.9% 100 ML IVPB SCH (09:28)
[2019-06-16] MEDS: HEPARIN SODIUM,PORCINE 5,000 UNIT/ML 1 ML VIAL SQ SCH ×2 (09:37→22:29)
[2019-06-16] MEDS: DIVALPROEX ER 500 MG TAB.ER.24H PO SCH (09:41)
[2019-06-16] MEDS: LEVOTHYROXINE 50 MCG TAB PO SCH (09:44)
[2019-06-16] MEDS: CALCITRIOL 0.25 MCG CAP PO SCH (09:44)
[2019-06-16] MEDS: PANTOPRAZOLE 40 MG TABLET PO SCH (09:44)
[2019-06-16] MEDS: URSODIOL 300 MG CAP PO SCH ×3 (09:44→17:27)
[2019-06-16] MEDS: NIFEdipine XL 30 MG TAB.ER.24 PO SCH (09:45)
[2019-06-16] MEDS: LISINOPRIL 5 MG TAB PO SCH (09:45)
[2019-06-16] MEDS: TAMSULOSIN 0.4 MG CAP.ER.24H PO SCH (09:45)
[2019-06-16] MEDS: CHOLECALCIFEROL 1,000 UNIT TAB PO SCH (09:45)
[2019-06-16] MEDS: FERROUS SULFATE 325 MG TAB PO SCH ×2 (09:45→22:28)
[2019-06-16] MEDS: CYANOCOBALAMIN 500 MCG TAB PO SCH (09:45)
[2019-06-16] MEDS: LACTOBACILLUS ACIDOPH & BULGAR 1 EACH PACKET PO SCH (09:46)
--- NOTE | 2019-06-16 10:07 | P.PN ---
Subjective Patient is seen in follow-up for acute kidney injury on chronic kidney disease. Patient is chronic kidney disease stage III with baseline creatinine in the range of 1.3-1.5. Renal function is stable. Denies chest pain or shortness of breath. He is nonoliguric. Has a Romero catheter. Feels tired this morning. Otherwise no active complaints. Vital signs are stable. General: The patient appeared well nourished and normally developed. HEENT: Head exam is unremarkable. Neck is without jugular venous distension. LUNGS: Lungs are clear to auscultation and percussion. Breath sounds decreased. HEART: Rate and Rhythm are regular. First and second heart sounds normal. No murmurs, rubs or gallops. ABDOMEN: Abdominal exam reveals normal bowel sounds. Non-tender and non- distended. No evidence of peritonitis. EXTREMITITES: No clubbing, cyanosis, or edema. Objective - Vital Signs Vital signs: Vital Signs Temp 97.4 F L 06/16/19 04:42 Pulse 53 L 06/16/19 04:42 Resp 16 06/16/19 04:42 BP 149/70 06/16/19 04:42 Pulse Ox 95 06/16/19 04:42 Intake & Output 06/15/19 06/16/19 06/16/19 18:59 06:59 18:59 Intake Total 240 100 Output Total 400 Balance -160 100 Intake: Intake, IV Titration 100 Amount Meropenem 1 gm In Sodium 100 Chloride 0.9% 100 ml @ 200 mls/hr IVPB Q12H [facility] Rx#:[id number] Oral 240 Output: Urine 400 Uretheral (Romero) 100 Other: Voiding Method Indwelling Catheter Indwelling Catheter # Voids 3 # Bowel Movements 2 - Labs CBC & Chem 7: 06/14/19 08:14 06/15/19 06:56 Labs: Abnormal Lab Results - Last 24 Hours (Table) 06/15/19 06/15/19 06/15/19 Range/Units 11:15 17:15 19:36 POC Glucose (mg/dL) 217 H 144 H 166 H (75-99) mg/dL Microbiology - Last 24 Hours (Table) 06/11/19 13:57 Blood Culture - Preliminary Blood No Growth after 96 hours Assessment and Plan Plan: Assessment: 1. Acute kidney injury mostly prerenal secondary to infection and diuresis. Renal function stable. Creatinine 1.65 as of yesterday . UA benign. No evidence of hydronephrosis noted on kidney ultrasound. Right kidney noted to be small. 2. Pneumonia with concern for aspiration. Maintained on antibiotics. 3. Chronic kidney disease stage III secondary to nephrosclerosis with baseline creatinine in the range of 1.3-1.5. 4. Anemia of chronic kidney disease. Iron deficiency noted. 5. Insulin-dependent diabetes mellitus. 6. Hypertension with chronic kidney disease. 7. Chronic kidney disease mineral bone disease maintained on calcitriol. Plan: Encouraged oral intake. Remains off IV fluids. Avoid nephrotoxins. Can continue with lisinopril for now but to hold if systolic blood pressure less than 120. IV iron 3 doses. Third dose today. Repeat electrolytes in the morning.
[2019-06-16] MEDS: INSULIN ASPART (NovoLOG) 100 UNIT/ML VIAL SQ SCH ×6 (10:18→22:29)
[2019-06-16] MEDS: NYSTATIN 100,000 UNIT/GM POWD 15 GM TOPICAL SCH ×2 (10:20→22:39)
--- NOTE | 2019-06-16 10:59 | P.PN ---
Subjective Progress Note Date: 06/16/19 Principal diagnosis: Acute hypoxic respiratory failure secondary to aspiration pneumonia. This is a 79-year-old male patient with known history of developmental delay who is known to me from previous hospitalization. The patient lives in a correction and he got transferred again to our hospital for increased confusion, unable to obtain a temperature at home, cough and congestion. He came into the ED and the patient was given a chest x-ray when he was found to have some limited bibasilar pulmonary infiltrates and for that reason he was admitted to the hospital. Currently is on oxygen at 2 L per minute nasal cannula. No chest pain. He is more interactive today. He was seen by ID and he was placed on IV Merrem. During his last evaluation from April 2019, I have non-a swallow evaluation of this patient and the patient was found to have repeated transient penetration with thin consistency with and without a straw and bev aspiration likely from residuals without eliciting a cough reflex. during his earlier hospitalization, I saw this patient in the intensive care unit for sepsis. At that time he was having some swelling and erythema in his lower extremities and he was treated for lower extremity cellulitis and aspiration pneumonia left more than right. 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 He has a full CODE STATUS. Patient was reevaluated today on 06/13/2019, remains on treatment for presumptive aspiration pneumonia, patient has many other medical problems including chronic kidney disease, coronary artery disease and previous stent placement, ischemic cardiomyopathy, bladder cancer, and history of indwelling Fo chan catheter, thrombocytopenia, hypertension, dyslipidemia, and medical debility. Patient is not a great historian. But he seems to be comfortable. Labs showed the risk of 7.2 hemoglobin is 9 lites are normal BUN is 34 creatinine is 1.65 has elevated BNP level of 8510. Chest x-ray is not suggest patria of interstitial edema, mostly has bibasilar infiltrates. Which seem to be worsening since admission. The patient is seen today 06/14/2019 in follow-up on the regular medical floor. He is awake and alert in no acute distress. Currently resting comfortably in bed. Maintaining good O2 saturations in the mid 90s on 2 L/m per nasal cannula. He is afebrile. Sputum culture reveals no growth. Blood culture reveals no growth. White count 2.7. Hemoglobin 8.1. Creatinine 1.67. He remains on bronchodilators and antibiotics in the form of meropenem. The patient is seen today 06/15/2018 in follow-up on the regular medical floor. He is currently resting comfortably in bed. Awake and alert in no acute distress. He denies any worsening shortness of breath, cough or congestion. He is maintaining good O2 saturations in the mid 90s on 2 L/m per nasal cannula. He's been afebrile. Hemodynamically stable. Blood and sputum cultures reveal no growth. Sodium 144. Potassium 3.9. Creatinine 1.65. He remains on meropenem. He did have an episode of hypoglycemia with a blood glucose of 40 earlier this morning. Currently to 217. The patient is seen today 06/16/2019 in follow-up on the regular medical floor. He is awake and alert in no acute distress. Sitting up in a chair at the bedside. Maintaining O2 saturations in the mid 90s on room air. He's been afebrile. Hemodynamically stable. Blood and sputum cultures reveal no growth. Currently on meropenem. Objective - Vital Signs Vital signs: Vital Signs Temp 97.5 F L 06/16/19 08:15 Pulse 58 L 06/16/19 08:15 Resp 16 06/16/19 10:53 BP 143/56 06/16/19 08:15 Pulse Ox 95 06/16/19 10:53 Intake & Output 06/15/19 06/16/19 06/16/19 18:59 06:59 18:59 Intake Total 240 100 360 Output Total 400 300 Balance -160 100 60 Intake: Intake, IV Titration 100 Amount Meropenem 1 gm In Sodium 100 Chloride 0.9% 100 ml @ 200 mls/hr IVPB Q12H [facility] Rx#:[id number] Oral 240 360 Output: Urine 400 300 Uretheral (Romero) 100 Other: Voiding Method Indwelling Catheter Indwelling Catheter Indwelling Catheter # Voids 3 3 # Bowel Movements 2 2 - Exam GENERAL EXAM: Alert, pleasant, 79-year-old gentleman currently on room air, comfortable in no apparent distress. Head: Atraumatic, normocephalic. HEENT: PERRLA, EOMI, no icterus. Dry mucous membranes. No neck masses no JVD no stridor. CHEST: No chest wall deformity. Symmetrical expansion. LUNGS: Equal air entry with bilateral lower lobe crackles over posterior lower bases CVS: Regular rate and rhythm, normal S1 and S2, no gallops, no murmurs, no rubs ABDOMEN: Soft, nontender. No hepatosplenomegaly, normal bowel sounds, no guarding or rigidity. EXTREMITIES: No clubbing, no edema, no cyanosis, 2+ pulses and upper and lower extremities. MUSCULOSKELETAL: Muscle strength and tone normal. SPINE: No scoliosis or deformity SKIN: No rashes CENTRAL NERVOUS SYSTEM: Alert and oriented to self only. - Labs CBC & Chem 7: 06/14/19 08:14 06/15/19 06:56 Labs: Abnormal Lab Results - Last 24 Hours (Table) 06/15/19 06/15/19 06/15/19 Range/Units 11:15 17:15 19:36 POC Glucose (mg/dL) 217 H 144 H 166 H (75-99) mg/dL Microbiology - Last 24 Hours (Table) 06/11/19 13:57 Blood Culture - Preliminary Blood No Growth after 96 hours Assessment and Plan Assessment: Impression: #1 Acute hypoxic respiratory failure secondary to suspected aspiration pneumonia. Currently on meropenem. #2 Chronic kidney disease, stage III. #4 Hypertension. #5 Hyperlipidemia. #6 Previous myocardial infarction. #7 History of positive anti-mitochondrial antibody. #8 History of bladder tumor. #9 Remote history of chronic tobacco dependence. Plan: The patient was seen and evaluated by Dr. Blakely. He is cleared for discharge from the pulmonary standpoint. He is receiving iron per nephrology. We'll see him on as-needed basis. I, the cosigning physician, performed a history & physical examination of the patient. Lungs sounds with basilar crackles. Maintaining good O2 saturations in the 90s on room air.. I discussed the assessment and plan of care with my nurse practitioner, Donna Henning. I attest to the above note as dictated by her.
[2019-06-16 11:22] LABS: Glucose,Whole Blood 307 mg/dL (75-99)
--- NOTE | 2019-06-16 13:50 | P.PN ---
Subjective Progress Note Date: 06/16/19 Principal diagnosis: This is a 79-year-old male who was recently admitted with bilateral pneumonia right more so than left with possible aspiration and also having features of urinary tract infection and is being closely monitored. Patient was also found to be hypothermic and had features of sepsis. Multiple medical consultations are following. No acute overnight issues. Awaiting report from repeat barium swallow that was done today. Patient denies any chest pain, shortness of breath, or palpitations at this time. Patient is afebrile. Patient denies any nausea or vomiting and was nothing by mouth until swallow eval was done. Patient was having a swallow eval done at the bedside and tolerating nectar thickened apple juice. Will await report. Guarded prognosis. 06/14/2019 Patient is sitting up in bed in no acute distress eating breakfast and tolerating well. Patient is currently still on IV antibiotics in the form of meropenem and will continue at this time. Currently patient denies any chest pain, shortness of breath, or palpitations. Patient is afebrile. Patient denies any nausea or vomiting and is tolerating diet. Pulmonary and nephrology are following closely. Patient is on IV iron infusion per nephrology recommendations and will be receiving 2 more doses. Patient had a repeat chest x-ray today which which shows no significant interval change from previous x- ray. Patient is currently still on oxygen via nasal cannula at 2 L. Will evie nue to monitor closely. No acute overnight issues. Speech pathology has seen the patient again today and patient is currently tolerating a dysphagia level III chopped diet with nectar thickened liquids and is to continue maintaining aspiration precautions. Patient did much better today with eating and tolerating. Will continue to monitor. Guarded prognosis. 06/15/2019 Patient is sitting up in bed in no acute distress. Patient is currently receiving iron infusions per nephrology recommendations on #2 of 3. [place] is at the bedside. Per nursing staff patient had low rectal times overnight with a repeat this morning showing 97.6F. Patient was put on a bear hugger for temp regulation and is being closely monitored. Pulmonary and nephrology are following. Patient had an episode of hypoglycemia this morning and was 40 and was rechecked after orange juice administration and was normal. Will continue to monitor closely. Patient is currently maintained on IV antibiotics and will continue at this time. Is denying any chest pain, shortness of breath, or palpitations at this time. Patient denies any nausea or vomiting and is tolerating diet. Patient is currently tolerating his nectar thickened liquids with no choking issues. Guarded prognosis. 06/16/2019 Patient is sitting up in the chair in no acute distress eating lunch and tolerating well. Patient is receiving his third dose of iron infusion today and will repeat labs in the morning. Patient's blood sugars have been fluctuating and will adjust medications accordingly. Patient denies any chest pain, sh ortness of breath, or palpitations at this time. Patient is afebrile. Patient is actually hypo-thermic and being closely monitored. No acute overnight issues. Will continue to monitor. Objective - Vital Signs Vital signs: Vital Signs Temp 94.4 F L 06/16/19 13:10 Pulse 52 L 06/16/19 12:11 Resp 16 06/16/19 12:11 BP 149/74 06/16/19 12:11 Pulse Ox 97 06/16/19 12:11 Intake & Output 06/15/19 06/16/19 06/16/19 18:59 06:59 18:59 Intake Total 240 100 360 Output Total 400 800 Balance -160 100 -440 Intake: Intake, IV Titration 100 Amount Meropenem 1 gm In Sodium 100 Chloride 0.9% 100 ml @ 200 mls/hr IVPB Q12H [facility] Rx#:[id number] Oral 240 360 Output: Urine 400 800 Uretheral (Romero) 100 Other: Voiding Method Indwelling Catheter Indwelling Catheter Indwelling Catheter # Voids 3 3 # Bowel Movements 2 2 - Exam Gen: This is a 79 year old male sitting up in bed in no acute distress. Vital signs are stable. Temp is 97.5F , pulse is 58, respirations are 16, blood pressure is 143/56, oxygen saturation is 94% on 2 L of oxygen via nasal cannula. HEENT: Head is atraumatic, normocephalic. Pupils equal, round. Sclerae is anicteric. NECK: Supple. No JVD. No lymphadenopathy. No thyromegaly. LUNGS:Diminished breath sounds at the bases with scattered crackles noted at the bases. No intercostal retractions. HEART: S1 and S2 muffled. ABDOMEN: Soft. Bowel sounds are present. No masses. No tenderness. EXTREMITIES: No pedal edema. No calf tenderness. NEUROLOGICAL: Patient is awake, alert and oriented x2-3. Cranial nerves 2 through 12 are grossly intact. - Labs CBC & Chem 7: 06/14/19 08:14 06/15/19 06:56 Labs: Abnormal Lab Results - Last 24 Hours (Table) 06/15/19 06/15/19 06/16/19 Range/Units 17:15 19:36 11:21 POC Glucose (mg/dL) 144 H 166 H 307 H (75-99) mg/dL Microbiology - Last 24 Hours (Table) 06/11/19 13:57 Blood Culture - Preliminary Blood No Growth after 96 hours Assessment and Plan Assessment: Bilateral pneumonia, right more than the left, possibly aspiration, possibly hospital-acquired with early sepsis, present on admission Small bilateral pleural effusion Hypothermia, present on admission secondary to sepsis, improved Change in mental status, metabolic encephalopathy, acute on chronic Mental handicap history Mild pancytopenia of undetermined origin Increased creatinine with possible chronic kidney disease stage III History of recent left leg cellulitis History of recent acute hypoxic respiratory failure secondary to congestive heart failure acute exacerbation, acute on chronic systolic function, as well as aspiration pneumonia Diabetes mellitus type 2 Hypertension Hyperlipidemia history of myocardial infarction History of anti-mitochondrial antibody positive recently History of bladder tumor history of coronary artery disease/stent History of cataracts Remote history of nicotine dependence Full code Recommendations and discussion: Recommend to continue current medications, management, and symptomatic treatment. Will continue to monitor closely. Patient received his third dose of iron infusions per nephrology recommendations today and will repeat labs in t he morning. Case management and social work are following as they are working with family about possible palliative care. Social work is working on discharge plans as there may be issues with returning to the [facility] home where he was originally residing. Family is agreeable to palliative care per case management. Patient will also be discharged with home care. Resources have been provided. Due to multiple complex medical issues, prognosis is extremely guarded and poor. Further recommendations to follow. Possible discharge in 24- 48 hours.
[2019-06-16 17:06] LABS: Glucose,Whole Blood 432 mg/dL (75-99)
[2019-06-16 20:18] LABS: Glucose,Whole Blood 291 mg/dL (75-99)
[2019-06-16] MEDS: FLUCONAZOLE 100 MG TAB PO SCH (22:28)
[2019-06-17] MEDS: MEROPENEM 1 GM in SODIUM CHLORIDE 0.9% 100 ML IVPB SCH ×2 (03:28→17:17)
[2019-06-17 06:30] LABS: Calcium 8.6 mg/dL (8.4-10.2); Magnesium 1.8 mg/dL (1.6-2.3); Potassium 5.2 mmol/L (3.5-5.1)
[2019-06-17 07:08] LABS: Glucose,Whole Blood 98 mg/dL (75-99)
[2019-06-17] MEDS: INSULIN ASPART (NovoLOG) 100 UNIT/ML VIAL SQ SCH ×6 (07:18→21:21)
[2019-06-17] MEDS: URSODIOL 300 MG CAP PO SCH ×3 (08:06→17:19)
[2019-06-17] MEDS: PANTOPRAZOLE 40 MG TABLET PO SCH (08:06)
--- NOTE | 2019-06-17 08:16 | P.PN ---
Subjective Patient is seen in follow-up for acute kidney injury on chronic kidney disease. Patient is chronic kidney disease stage III with baseline creatinine in the range of 1.3-1.5. Renal function is stable. Denies chest pain or shortness of breath. He is nonoliguric. Has a Romero catheter. No active complaints at this time. His body temperature checked rectally was low this morning. Vital signs are stable. General: The patient appeared well nourished and normally developed. HEENT: Head exam is unremarkable. Neck is without jugular venous distension. LUNGS: Lungs are clear to auscultation and percussion. Breath sounds decreased. HEART: Rate and Rhythm are regular. First and second heart sounds normal. No murmurs, rubs or gallops. ABDOMEN: Abdominal exam reveals normal bowel sounds. Non-tender and non- distended. No evidence of peritonitis. EXTREMITITES: No clubbing, cyanosis, or edema. Objective - Vital Signs Vital signs: Vital Signs Temp 97.7 F 06/17/19 05:00 Pulse 55 L 06/17/19 05:00 Resp 16 06/17/19 05:00 BP 137/62 06/17/19 05:00 Pulse Ox 96 06/17/19 05:00 Intake & Output 06/16/19 06/17/19 06/17/19 18:59 06:59 18:59 Intake Total 1760 750 Output Total 2050 1000 Balance -290 -250 Intake: Intake, IV Titration 200 100 Amount Meropenem 1 gm In Sodium 100 100 Chloride 0.9% 100 ml @ 200 mls/hr IVPB Q12H [facility] Rx#:[id number] Sodium Ferric Gluconat- 100 Sucrose 125 mg In Sodium Chloride 0.9% 100 ml @ 100 mls/hr IVPB DAILY [facility] Rx#:[id number] Oral 1560 650 Output: Urine 2049 1000 Other: Voiding Method Indwelling Catheter Indwelling Catheter # Voids 7 # Bowel Movements 2 - Labs CBC & Chem 7: 06/14/19 08:14 06/17/19 05:57 Labs: Abnormal Lab Results - Last 24 Hours (Table) 06/16/19 06/16/19 06/16/19 Range/Units 11:21 17:05 20:16 Potassium (3.5-5.1) mmol/L Chloride (98-107) mmol/L BUN (9-20) mg/dL Creatinine (0.66-1.25) mg/dL Glucose (74-99) mg/dL POC Glucose (mg/dL) 307 H 432 H 291 H (75-99) mg/dL 06/17/19 Range/Units 05:57 Potassium 5.2 H (3.5-5.1) mmol/L Chloride 113 H (98-107) mmol/L BUN 25 H (9-20) mg/dL Creatinine 1.55 H (0.66-1.25) mg/dL Glucose 71 L (74-99) mg/dL POC Glucose (mg/dL) (75-99) mg/dL Microbiology - Last 24 Hours (Table) 06/11/19 13:57 Blood Culture - Preliminary Blood No Growth after 120 hours Assessment and Plan Plan: Assessment: 1. Acute kidney injury mostly prerenal secondary to infection and diuresis. Renal function stable. Creatinine 1.55 today. UA benign. No evidence of hydronephrosis noted on kidney ultrasound. Right kidney noted to be small. 2. Pneumonia with concern for aspiration. Maintained on antibiotics. 3. Chronic kidney disease stage III secondary to nephrosclerosis with baseline creatinine in the range of 1.3-1.5. 4. Anemia of chronic kidney disease. Iron deficiency noted. Status post 3 doses of IV iron. 5. Insulin-dependent diabetes mellitus. 6. Hypertension with chronic kidney disease. 7. Chronic kidney disease mineral bone disease maintained on calcitriol. 8. Hypothermia. Possibly due to infection. Also check TSH. Plan: Encouraged oral intake. Remains off IV fluids. Avoid nephrotoxins. Can continue with lisinopril for now but to hold if systolic blood pressure less than 120. Check TSH.
[2019-06-17] MEDS: HEPARIN SODIUM,PORCINE 5,000 UNIT/ML 1 ML VIAL SQ SCH ×2 (08:47→21:22)
[2019-06-17] MEDS: TAMSULOSIN 0.4 MG CAP.ER.24H PO SCH (08:52)
[2019-06-17] MEDS: CHOLECALCIFEROL 1,000 UNIT TAB PO SCH (08:52)
[2019-06-17] MEDS: LEVOTHYROXINE 50 MCG TAB PO SCH (08:52)
[2019-06-17] MEDS: FERROUS SULFATE 325 MG TAB PO SCH ×2 (08:53→21:22)
[2019-06-17] MEDS: CYANOCOBALAMIN 500 MCG TAB PO SCH (08:53)
[2019-06-17] MEDS: NIFEdipine XL 30 MG TAB.ER.24 PO SCH (08:53)
[2019-06-17] MEDS: LISINOPRIL 5 MG TAB PO SCH (08:53)
[2019-06-17] MEDS: LACTOBACILLUS ACIDOPH & BULGAR 1 EACH PACKET PO SCH (08:53)
[2019-06-17] MEDS: ALBUTEROL NEBULIZED 2.5 MG/3 ML INHALATION SCH ×3 (09:12→20:07)
[2019-06-17 09:28] LABS: T4, Free (Free Thyroxine) 1.43 ng/dL (0.78-2.19)
[2019-06-17] MEDS: DIVALPROEX ER 500 MG TAB.ER.24H PO SCH (09:46)
[2019-06-17] MEDS: SODIUM FERRIC GLUCONAT-SUCROSE 125 MG in SODIUM CHLORIDE 0.9% 100 ML IVPB SCH (09:48)
[2019-06-17] MEDS: NYSTATIN 100,000 UNIT/GM POWD 15 GM TOPICAL SCH ×2 (10:20→21:28)
[2019-06-17 11:22] LABS: Glucose,Whole Blood 205 mg/dL (75-99)
[2019-06-17 11:35] VITALS: BMI 20.7
--- NOTE | 2019-06-17 12:23 | CDI ---
Documentation Clarification Form Date: 06/17/2019 12:11:58 PM From: Mary Grace Solis RN CCDS Admit Date: 06/11/2019 4:38:00 PM Patient Name: Nishant Perkins Visit Number: [id number] ATTENTION: The Clinical Documentation Specialists (CDI) and [facility] Coding Staff appreciate your assistance in clarifying documentation. Please respond to the clarification below the line at the bottom and electronically sign. The CDI & [facility] Coding staff will review the response and follow-up if needed. Please note: Queries are made part of the Legal Health Record. If you have any questions, please contact the author of this message via ITS. Dr. Isis Sloan History/Risk Factors: Pneumonia, hypothermia, and dehydration this admission, pt is dysphagia level 3 for aspiration Clinical Indicators: 06/14 ID progress note: "Gen: This is a 79-year-old male. Patient appears thin with muscle wasting to the extremities." Dietary Assessment: underweight Labs: Hgb 9/8.1, total protein 5.5, albumin 2.6 Current BMI: 20.8 Treatment: Dietary Consult: completed Pt is on a texture, carb, and mineral modified diet Supplements: Glucerna 1 can BID at home Lab monitoring: am Daily In your professional opinion, can you please clarify if these findings signify one of the following conditions? Mild Protein-Calorie Malnutrition Moderate Protein-Calorie Malnutrition Severe Protein-Calorie Malnutrition Other condition, please specify Unable to determine (Last Revision: February 2019) Mild Protein-Calorie Malnutrition MTDD
--- NOTE | 2019-06-17 16:02 | P.PN ---
Subjective Progress Note Date: 06/17/19 Principal diagnosis: This is a 79-year-old male who was recently admitted with bilateral pneumonia right more so than left with possible aspiration and also having features of urinary tract infection and is being closely monitored. Patient was also found to be hypothermic and had features of sepsis. Multiple medical consultations are following. No acute overnight issues. Awaiting report from repeat barium swallow that was done today. Patient denies any chest pain, shortness of breath, or palpitations at this time. Patient is afebrile. Patient denies any nausea or vomiting and was nothing by mouth until swallow eval was done. Patient was having a swallow eval done at the bedside and tolerating nectar thickened apple juice. Will await report. Guarded prognosis. 06/14/2019 Patient is sitting up in bed in no acute distress eating breakfast and tolerating well. Patient is currently still on IV antibiotics in the form of meropenem and will continue at this time. Currently patient denies any chest pain, shortness of breath, or palpitations. Patient is afebrile. Patient denies any nausea or vomiting and is tolerating diet. Pulmonary and nephrology are following closely. Patient is on IV iron infusion per nephrology recommendations and will be receiving 2 more doses. Patient had a repeat chest x-ray today which which shows no significant interval change from previous x- ray. Patient is currently still on oxygen via nasal cannula at 2 L. Will evie nue to monitor closely. No acute overnight issues. Speech pathology has seen the patient again today and patient is currently tolerating a dysphagia level III chopped diet with nectar thickened liquids and is to continue maintaining aspiration precautions. Patient did much better today with eating and tolerating. Will continue to monitor. Guarded prognosis. 06/15/2019 Patient is sitting up in bed in no acute distress. Patient is currently receiving iron infusions per nephrology recommendations on #2 of 3. Brother [place] is at the bedside. Per nursing staff patient had low rectal times overnight with a repeat this morning showing 97.6F. Patient was put on a bear hugger for temp regulation and is being closely monitored. Pulmonary and nephrology are following. Patient had an episode of hypoglycemia this morning and was 40 and was rechecked after orange juice administration and was normal. Will continue to monitor closely. Patient is currently maintained on IV antibiotics and will continue at this time. Is denying any chest pain, shortness of breath, or palpitations at this time. Patient denies any nausea or vomiting and is tolerating diet. Patient is currently tolerating his nectar thickened liquids with no choking issues. Guarded prognosis. 06/16/2019 Patient is sitting up in the chair in no acute distress eating lunch and tolerating well. Patient is receiving his third dose of iron infusion today and will repeat labs in the morning. Patient's blood sugars have been fluctuating and will adjust medications accordingly. Patient denies any chest pain, sh ortness of breath, or palpitations at this time. Patient is afebrile. Patient is actually hypo-thermic and being closely monitored. No acute overnight issues. Will continue to monitor. 06/17/2019 Patient is sitting up in bed in no acute distress currently under the bear hugger as he continues to be hypothermic with a rectal temp of 93.3F. No acute overnight issues. Patient's blood sugars continue to be fluctuating and running low in the early mornings and then spiking up into the 2 to 300s by 4-5 PM. Discussed with the nursing staff about continuing with sliding scale and also to continue with regimented timing of medications. Currently patient denies any chest pain, shortness of breath, or palpitations at this time. Patient denies any nausea or vomiting and is tolerating nectar thickened liquids with dysphagia 3 chopped diet with no issues of aspiration at this time. Met with [place], his brother and guardian along with [facility] and representatives from [facility] along with social work today and discussed possible options for discharge planning. Discussed at length about possible palliative or hospice care or a rehab placement upon discharge as some options and [place] stated he would like to discuss this with his and sister who are coguardian's. Social work will continue to follow. [place] briefly talked with [facility] hospice and fired them immediately as he felt uncomfortable with their presentation of hospice or palliative and would like to talk with somebody else. This will be arranged with social work. Nephrology is following closely. Will continue to monitor. Extremely guarded prognosis. REVIEW OF SYSTEMS: ENT: Reports no diminished vision or hearing. CARDIOVASCULAR: Denies chest pain or palpitations. RESPIRATORY: Denies any shortness of breath or cough GI: No nausea, vomiting or diarrhea. : No dysuria or retention. Chronic Romero catheter NERVOUS SYSTEM: No numbness MUSCULOSKELETAL: Reports generalized weakness. HEMATOLOGY/ONCOLOGY: history of anemia. ENDOCRINE: Reports diabetes and hypothyroidism. CONSTITUTIONAL: As mentioned earlier. Active Medications Acetaminophen (Tylenol Tab) 650 mg PO Q4HR PRN PRN Reason: Fever and/ or Pain Last Admin: 06/12/19 08:17 Dose: 650 mg Documented by: Albuterol Sulfate (Ventolin Nebulized) 2.5 mg INHALATION RT-TID [facility] Last Admin: 06/17/19 13:41 Dose: 2.5 mg Documented by: Calcitriol (Rocaltrol) 0.25 mcg PO Q48H [facility] Last Admin: 06/16/19 09:44 Dose: 0.25 mcg Documented by: Cholecalciferol (Vitamin D3 (25 Mcg = 1000 Iu)) 2,000 unit PO DAILY@0800 [facility] Last Admin: 06/17/19 08:52 Dose: 2,000 unit Documented by: Cyanocobalamin (Vitamin B-12) 1,000 mcg PO DAILY [facility] Last Admin: 06/17/19 08:53 Dose: 1,000 mcg Documented by: Divalproex Sodium (Depakote Er) 1,000 mg PO DAILY@0800 [facility] Last Admin: 06/17/19 09:46 Dose: 1,000 mg Documented by: Ferrous Sulfate (Feosol) 325 mg PO BID@0800,2100 [facility] Last Admin: 06/17/19 08:53 Dose: 325 mg Documented by: Fluconazole (Diflucan) 100 mg PO DAILY@2100 [facility] Last Admin: 06/16/19 22:28 Dose: 100 mg Documented by: Heparin Sodium (Porcine) (Heparin) 5,000 unit SQ Q12HR [facility] Last Admin: 06/17/19 08:47 Dose: 5,000 unit Documented by: Meropenem 1 gm/ Sodium (Chloride) 100 mls @ 200 mls/hr IVPB Q12H [facility]; Protocol Last Admin: 06/17/19 03:28 Dose: 200 mls/hr Documented by: Insulin Aspart (Novolog) 0 unit SQ ACHS [facility]; Protocol Last Admin: 06/17/19 12:49 Dose: 2 unit Documented by: Insulin Aspart (Novolog) 5 unit SQ AC-BID [facility] Last Admin: 06/17/19 08:05 Dose: 5 unit Documented by: Lactobacillus Acidoph/Bulgaricus (Lactinex) 1 each PO DAILY@0800 [facility] Last Admin: 06/17/19 08:53 Dose: 1 each Documented by: Levothyroxine Sodium (Synthroid) 50 mcg PO DAILY@0830 [facility] Last Admin: 06/17/19 08:52 Dose: 50 mcg Documented by: Lisinopril (Zestril) 5 mg PO DAILY@0800 [facility] Last Admin: 06/17/19 08:53 Dose: 5 mg Documented by: Miscellaneous Information (Pneumonia Protocol Utilized) 1 each PO ONCE PRN PRN Reason: Per Protocol Nifedipine (Procardia Xl) 30 mg PO DAILY@0800 [facility] Last Admin: 06/17/19 08:53 Dose: 30 mg Documented by: Nystatin (Mycostatin Powder) 1 applic TOPICAL BID@08,1999 [facility] Last Admin: 06/17/19 10:20 Dose: 1 applic Documented by: Pantoprazole Sodium (Protonix) 40 mg PO DAILY@0730 [facility] Last Admin: 06/17/19 08:06 Dose: 40 mg Documented by: Polyethylene Glycol (Miralax) 17 gm PO DAILY PRN PRN Reason: Constipation Senna (Senokot) 17.2 mg PO HS PRN PRN Reason: Constipation Tamsulosin HCl (Flomax) 0.4 mg PO DAILY@0800 [facility] Last Admin: 06/17/19 08:52 Dose: 0.4 mg Documented by: Ursodiol (Actigall) 300 mg PO AC-TID [facility] Last Admin: 06/17/19 12:31 Dose: 300 mg Documented by: Objective - Vital Signs Vital signs: Vital Signs Temp 96.4 F L 06/17/19 13:40 Pulse 68 06/17/19 13:42 Resp 17 06/17/19 12:13 BP 161/76 06/17/19 12:13 Pulse Ox 96 06/17/19 12:13 Intake & Output 06/16/19 06/17/19 06/17/19 18:59 06:59 18:59 Intake Total 1760 750 400 Output Total 2050 1000 400 Balance -290 -250 0 Weight 56.699 kg Intake: Intake, IV Titration 200 100 Amount Meropenem 1 gm In Sodium 100 100 Chloride 0.9% 100 ml @ 200 mls/hr IVPB Q12H [facility] Rx#:[id number] Sodium Ferric Gluconat- 100 Sucrose 125 mg In Sodium Chloride 0.9% 100 ml @ 100 mls/hr IVPB DAILY [facility] Rx#:[id number] Oral 1560 650 400 Output: Urine 2050 1000 Stool 400 Other: Voiding Method Indwelling Catheter Indwelling Catheter Indwelling Catheter # Voids 7 # Bowel Movements 2 4 - Exam Gen: This is a 79 year old male sitting up in bed in no acute distress. Vital signs are stable. Temp is 96.4 F rectal , pulse is steady for, respirations are 17, blood pressure is 161/76, oxygen saturation is 96% on room air. Patient is currently under the bear hugger for multiple readings of hypo-thermia rectally HEENT: Head is atraumatic, normocephalic. Pupils equal, round. Sclerae is anicteric. NECK: Supple. No JVD. No lymphadenopathy. No thyromegaly. LUNGS:Diminished breath sounds at the bases with a few scattered crackles noted at the bases. No intercostal retractions. HEART: S1 and S2 muffled. ABDOMEN: Soft. Bowel sounds are present. No masses. No tenderness. EXTREMITIES: No pedal edema. No calf tenderness. NEUROLOGICAL: Patient is awake, alert and oriented x2-3. Cranial nerves 2 through 12 are grossly intact. - Labs CBC & Chem 7: 06/14/19 08:14 06/17/19 05:57 Labs: Abnormal Lab Results - Last 24 Hours (Table) 06/16/19 06/16/19 06/17/19 Range/Units 17:05 20:16 05:57 Potassium 5.2 H (3.5-5.1) mmol/L Chloride 113 H (98-107) mmol/L BUN 25 H (9-20) mg/dL Creatinine 1.55 H (0.66-1.25) mg/dL Glucose 71 L (74-99) mg/dL POC Glucose (mg/dL) 432 H 291 H (75-99) mg/dL TSH (0.465-4.680) mIU/L 06/17/19 06/17/19 Range/Units 05:57 11:21 Potassium (3.5-5.1) mmol/L Chloride (98-107) mmol/L BUN (9-20) mg/dL Creatinine (0.66-1.25) mg/dL Glucose (74-99) mg/dL POC Glucose (mg/dL) 205 H (75-99) mg/dL TSH 5.810 H (0.465-4.680) mIU/L Microbiology - Last 24 Hours (Table) 06/11/19 13:57 Blood Culture - Preliminary Blood No Growth after 120 hours Assessment and Plan Assessment: Bilateral pneumonia, right more than the left, possibly aspiration, possibly hospital-acquired with early sepsis, present on admission Small bilateral pleural effusion Hypothermia, present on admission secondary to sepsis; patient is currently unde r a bear hugger for multiple readings of hypothermia, current rectal temp is 96.4F Change in mental status, metabolic encephalopathy, acute on chronic Mental handicap history Mild pancytopenia of undetermined origin Increased creatinine with possible chronic kidney disease stage III History of recent left leg cellulitis History of recent acute hypoxic respiratory failure secondary to congestive h eart failure acute exacerbation, acute on chronic systolic function, as well as aspiration pneumonia Diabetes mellitus type 2 Hypertension Hyperlipidemia history of myocardial infarction History of anti-mitochondrial antibody positive recently History of bladder tumor history of coronary artery disease/stent History of cataracts Remote history of nicotine dependence Full code Recommendations and discussion: Recommend to continue current medications, management, and symptomatic treatment. Will continue to monitor closely. Nephrology is following closely. Will continue on IV antibiotics in the form of meropenem. Patient continues to be hypothermic and currently under the bearhugger and being monitored closely. Patient's blood sugars continue to be uncontrolled with hypo-and hyperglycemia and will continue to be monitored closely. Case management and social work are following as they are working with family about possible palliative or hospice care upon discharge. Social work is working on discharge plans as there may be issues with returning to the [facility] home if an increase in nursing care is needed. Family is discussing discharge plans for possible subacute rehab or palliative or hospice care and return to [facility] after getting a second opinion from possible visiting [facility] as he had recently met with [facility] and fired them immediately. Brother, also legal guardian was told or under the assumption that if he chose hospice he would lose all of his guardian rights for his brother and was very upset by this. Case management and social worker health services following closely. Due to multiple complex medical issues, prognosis is extremely guarded and poor. Further recommendations to follow.
[2019-06-17 17:08] LABS: Glucose,Whole Blood 186 mg/dL (75-99)
[2019-06-17 19:56] LABS: Glucose,Whole Blood 161 mg/dL (75-99)
[2019-06-17] MEDS: FLUCONAZOLE 100 MG TAB PO SCH (21:22)
[2019-06-18] MEDS: MEROPENEM 1 GM in SODIUM CHLORIDE 0.9% 100 ML IVPB SCH ×2 (04:03→17:15)
[2019-06-18 07:06] LABS: Glucose,Whole Blood 81 mg/dL (75-99)
[2019-06-18] MEDS: INSULIN ASPART (NovoLOG) 100 UNIT/ML VIAL SQ SCH ×6 (07:11→22:43)
[2019-06-18] MEDS: ALBUTEROL NEBULIZED 2.5 MG/3 ML INHALATION SCH ×3 (07:29→19:35)
[2019-06-18] MEDS: HEPARIN SODIUM,PORCINE 5,000 UNIT/ML 1 ML VIAL SQ SCH ×2 (08:06→21:00)
[2019-06-18] MEDS: LACTOBACILLUS ACIDOPH & BULGAR 1 EACH PACKET PO SCH (08:06)
[2019-06-18] MEDS: CALCITRIOL 0.25 MCG CAP PO SCH (08:06)
[2019-06-18] MEDS: PANTOPRAZOLE 40 MG TABLET PO SCH (08:06)
[2019-06-18] MEDS: NIFEdipine XL 30 MG TAB.ER.24 PO SCH (08:06)
[2019-06-18] MEDS: CHOLECALCIFEROL 1,000 UNIT TAB PO SCH (08:06)
[2019-06-18] MEDS: LEVOTHYROXINE 50 MCG TAB PO SCH (08:07)
[2019-06-18] MEDS: TAMSULOSIN 0.4 MG CAP.ER.24H PO SCH (08:07)
[2019-06-18] MEDS: FERROUS SULFATE 325 MG TAB PO SCH ×2 (08:07→21:00)
[2019-06-18] MEDS: CYANOCOBALAMIN 500 MCG TAB PO SCH (08:07)
[2019-06-18] MEDS: URSODIOL 300 MG CAP PO SCH ×3 (08:07→17:15)
[2019-06-18] MEDS: DIVALPROEX ER 500 MG TAB.ER.24H PO SCH (08:07)
[2019-06-18 11:12] LABS: Glucose,Whole Blood 84 mg/dL (75-99)
[2019-06-18 11:31] LABS: Calcium 8.6 mg/dL (8.4-10.2); Potassium 5.8 mmol/L (3.5-5.1)
[2019-06-18] MEDS: LISINOPRIL 5 MG TAB PO SCH (11:40)
--- NOTE | 2019-06-18 13:46 | PN ---
PROGRESS NOTE The patient is seen for followup for acute kidney injury. He has been doing well. Renal function has been improving. Creatinine down to 1.5 from 1.7 peak. The patient has had good urine output. His potassium was mildly elevated yesterday. He is maintained on NIYA inhibitors. LABS: From today are pending. PHYSICAL EXAMINATION: This morning blood pressure was 173/73, heart rate 54 per minute, he is afebrile. Examination of the heart S1, S2. Examination of the lungs, bilateral breath sounds are heard. Abdomen is soft, nontender. Examination lower extremities shows no evidence of edema. SAFETY COUNSELOR exam grossly intact. Labs are pending from today. Creatinine was 1.5 yesterday, potassium was 5.2. ASSESSMENT: 1. Acute kidney injury, currently improved, mainly prerenal with benign urinalysis. No obstruction noted on ultrasound. 2. Pneumonia with possible aspiration pneumonia, maintained on antibiotics. 3. Chronic kidney disease stage 3 secondary to nephrosclerosis. Baseline creatinine 1.3-1.5. 4. Mild hyperkalemia associated with use of NIYA inhibitors and chronic kidney disease. Hold lisinopril until labs are done today. 5. Hypertension with chronic kidney disease. Blood pressure was elevated. The patient has just received his morning medications. 6. Chronic kidney disease mineral bone disorder, maintained on hyper Calcitriol. 7. Hypothermia which persists. TSH was slightly high. The patient is maintained on Synthroid. He is also maintained on antibiotics. No other major etiologies noted. MMODL / IJN: [id number] /
[2019-06-18] MEDS: NYSTATIN 100,000 UNIT/GM POWD 15 GM TOPICAL SCH ×2 (16:29→21:00)
[2019-06-18 16:55] LABS: Glucose,Whole Blood 46 mg/dL (75-99)
[2019-06-18 17:16] LABS: Glucose,Whole Blood 83 mg/dL (75-99)
[2019-06-18] MEDS ORDERED: SODIUM POLYSTYRENE SULFONATE 15 GM/60 ML BOTTLE PO STA (18:32)
[2019-06-18] MEDS ORDERED: INSULIN REGULAR 100 UNIT/ML VIAL IV ONE (18:32)
[2019-06-18] MEDS ORDERED: ALBUTEROL NEB (CONC) 2.5 MG/0.5 ML INHALATION ONE (18:34)
[2019-06-18] MEDS ORDERED: DEXTROSE 10 % IN WATER 250 ML IV ONE (18:34)
[2019-06-18 19:20] LABS: Glucose,Whole Blood 219 mg/dL (75-99)
[2019-06-18] MEDS: FLUCONAZOLE 100 MG TAB PO SCH (21:00)
[2019-06-18 21:20] LABS: Glucose,Whole Blood 162 mg/dL (75-99)
--- NOTE | 2019-06-18 22:59 | P.PN ---
Subjective Progress Note Date: 06/18/19 Principal diagnosis: Pneumonia Hypokalemia This is a 79-year-old male who was recently admitted with bilateral pneumonia right more so than left with possible aspiration and also having features of urinary tract infection and is being closely monitored. Patient was also found to be hypothermic and had features of sepsis. Multiple medical consultations are following. No acute overnight issues. Awaiting report from repeat barium swallow that was done today. Patient denies any chest pain, shortness of breath, or palpitations at this time. Patient is afebrile. Patient denies any nausea or vomiting and was nothing by mouth until swallow eval was done. Patient was having a swallow eval done at the bedside and tolerating nectar thickened apple juice. Will await report. Guarded prognosis. 06/14/2019 Patient is sitting up in bed in no acute distress eating breakfast and tolerating well. Patient is currently still on IV antibiotics in the form of meropenem and will continue at this time. Currently patient denies any chest pain, shortness of breath, or palpitations. Patient is afebrile. Patient denies any nausea or vomiting and is tolerating diet. Pulmonary and nephrology are following closely. Patient is on IV iron infusion per nephrology recommendations and will be receiving 2 more doses. Patient had a repeat chest x-ray today which which shows no significant interval change from previous x- ray. Patient is currently still on oxygen via nasal cannula at 2 L. Will continue to monitor closely. No acute overnight issues. Speech pathology has seen the patient again today and patient is currently tolerating a dysphagia level III chopped diet with nectar thickened liquids and is to continue maintaining aspiration precautions. Patient did much better today with eating and tolerating. Will continue to monitor. Guarded prognosis. 06/15/2019 Patient is sitting up in bed in no acute distress. Patient is currently receiving iron infusions per nephrology recommendations on #2 of 3. Brother [place] is at the bedside. Per nursing staff patient had low rectal times overnight with a repeat this morning showing 97.6F. Patient was put on a bear hugger for temp regulation and is being closely monitored. Pulmonary and nephrology are following. Patient had an episode of hypoglycemia this morning and was 40 and was rechecked after orange juice administration and was normal. Will continue to monitor closely. Patient is currently maintained on IV antibiotics and will continue at this time. Is denying any chest pain, shortness of breath, or palpitations at this time. Patient denies any nausea or vomiting and is tolerating diet. Patient is currently tolerating his nectar thickened liquids with no choking issues. Guarded prognosis. 06/16/2019 Patient is sitting up in the chair in no acute distress eating lunch and tolerating well. Patient is receiving his third dose of iron infusion today and will repeat labs in the morning. Patient's blood sugars have been fluctuating and will adjust medications accordingly. Patient denies any chest pain, shortness of breath, or palpitations at this time. Patient is afebrile. Bridgette ent is actually hypo-thermic and being closely monitored. No acute overnight issues. Will continue to monitor. 06/17/2019 Patient is sitting up in bed in no acute distress currently under the bear hugger as he continues to be hypothermic with a rectal temp of 93.3F. No acute overnight issues. Patient's blood sugars continue to be fluctuating and running low in the early mornings and then spiking up into the 2 to 300s by 4-5 PM. Discussed with the nursing staff about continuing with sliding scale and also to continue with regimented timing of medications. Currently patient denies any ch est pain, shortness of breath, or palpitations at this time. Patient denies any nausea or vomiting and is tolerating nectar thickened liquids with dysphagia 3 chopped diet with no issues of aspiration at this time. Met with [place], his brother and guardian along with [facility] and representatives from [facility] along with social work today and discussed possible options for discharge planning. Discussed at length about possible palliative or hospice care or a rehab placement upon discharge as some options and [place] stated he would like to discuss this with his and sister who are coguardian's. Social work will continue to follow. [place] briefly talked with [facility] hospice and fired them immediately as he felt uncomfortable with their presentation of hospice or palliative and would like to talk with somebody else. This will be arranged with social work. Nephrology is following closely. Will continue to monitor. Extremely guarded prognosis. 06/18/2019 Patient is awake alert and is sitting on the bed comfortably. Tolerated oral diet this afternoon. Currently on dysphagia diet. Temperature went up to 97.4. Otherwise blood sugar went down to 46 today afternoon. Denied any complaints of chest pain or shortness of breath. No nausea vomiting or abdominal pain. Patient's brother is his legal guardian. Awaiting to discuss with hospice care. REVIEW OF SYSTEMS: ENT: Reports no diminished vision or hearing. CARDIOVASCULAR: Denies chest pain or palpitations. RESPIRATORY: Denies any shortness of breath or cough GI: No nausea, vomiting or diarrhea. : No dysuria or retention. Chronic Romero catheter NERVOUS SYSTEM: No numbness MUSCULOSKELETAL: Reports generalized weakness. HEMATOLOGY/ONCOLOGY: history of anemia. ENDOCRINE: Reports diabetes and hypothyroidism. CONSTITUTIONAL: As mentioned earlier. Active Medications Acetaminophen (Tylenol Tab) 650 mg PO Q4HR PRN PRN Reason: Fever and/ or Pain Last Admin: 06/12/19 08:17 Dose: 650 mg Documented by: Albuterol Sulfate (Ventolin Nebulized) 2.5 mg INHALATION RT-TID [facility] Last Admin: 06/18/19 19:35 Dose: Not Given Documented by: Calcitriol (Rocaltrol) 0.25 mcg PO Q48H [facility] Last Admin: 06/18/19 08:06 Dose: 0.25 mcg Documented by: Cholecalciferol (Vitamin D3 (25 Mcg = 1000 Iu)) 2,000 unit PO DAILY@0800 [facility] Last Admin: 06/18/19 08:06 Dose: 2,000 unit Documented by: Cyanocobalamin (Vitamin B-12) 1,000 mcg PO DAILY [facility] Last Admin: 06/18/19 08:07 Dose: 1,000 mcg Documented by: Divalproex Sodium (Depakote Er) 1,000 mg PO DAILY@0800 [facility] Last Admin: 06/18/19 08:07 Dose: 1,000 mg Documented by: Ferrous Sulfate (Feosol) 325 mg PO BID@0800,2100 [facility] Last Admin: 06/18/19 21:00 Dose: 325 mg Documented by: Fluconazole (Diflucan) 100 mg PO DAILY@2100 [facility] Last Admin: 06/18/19 21:00 Dose: 100 mg Documented by: Heparin Sodium (Porcine) (Heparin) 5,000 unit SQ Q12HR [facility] Last Admin: 06/18/19 21:00 Dose: 5,000 unit Documented by: Meropenem 1 gm/ Sodium (Chloride) 100 mls @ 200 mls/hr IVPB Q12H [facility]; Protocol Last Admin: 06/18/19 17:15 Dose: 200 mls/hr Documented by: Insulin Aspart (Novolog) [address] [facility]; Protocol Last Admin: 06/18/19 22:43 Dose: Not Given Documented by: Insulin Aspart (Novolog) 3 unit SQ AC-TID [facility] Lactobacillus Acidoph/Bulgaricus (Lactinex) 1 each PO DAILY@0800 [facility] Last Admin: 06/18/19 08:06 Dose: 1 each Documented by: Levothyroxine Sodium (Synthroid) 50 mcg PO DAILY@0830 [facility] Last Admin: 06/18/19 08:07 Dose: 50 mcg Documented by: Lisinopril (Zestril) 5 mg PO DAILY@0800 [facility] Last Admin: 06/18/19 11:40 Dose: Not Given Documented by: Miscellaneous Information (Pneumonia Protocol Utilized) 1 each PO ONCE PRN PRN Reason: Per Protocol Nifedipine (Procardia Xl) 30 mg PO DAILY@0800 [facility] Last Admin: 06/18/19 08:06 Dose: 30 mg Documented by: Nystatin (Mycostatin Powder) 1 applic TOPICAL BID@08,1999 [facility] Last Admin: 06/18/19 21:00 Dose: 1 applic Documented by: Pantoprazole Sodium (Protonix) 40 mg PO DAILY@0730 [facility] Last Admin: 06/18/19 08:06 Dose: 40 mg Documented by: Polyethylene Glycol (Miralax) 17 gm PO DAILY PRN PRN Reason: Constipation Senna (Senokot) 17.2 mg PO HS PRN PRN Reason: Constipation Tamsulosin HCl (Flomax) 0.4 mg PO DAILY@0800 [facility] Last Admin: 06/18/19 08:07 Dose: 0.4 mg Documented by: Ursodiol (Actigall) 300 mg PO AC-TID [facility] Last Admin: 06/18/19 17:15 Dose: 300 mg Documented by: Objective - Vital Signs Vital signs: Vital Signs Temp 96.9 F L 06/18/19 05:00 Pulse 52 L 06/18/19 12:17 Resp 17 06/18/19 15:04 BP 170/89 06/18/19 12:17 Pulse Ox 96 06/18/19 12:17 Intake & Output 06/17/19 06/18/19 06/18/19 18:59 06:59 18:59 Intake Total 400 200 100 Output Total 400 700 Balance 0 -500 100 Weight 56.699 kg Intake: Intake, IV Titration 100 Amount Meropenem 1 gm In Sodium 100 Chloride 0.9% 100 ml @ 200 mls/hr IVPB Q12H [facility] Rx#:[id number] Oral 400 200 Output: Urine 300 Uretheral (Romero) 300 Stool 400 400 Other: Voiding Method Indwelling Catheter Indwelling Catheter Indwelling Catheter # Voids 1 # Bowel Movements 4 2 - Exam Gen: This is a 79 year old male sitting up in bed in no acute distress. Vital signs are stable. oxygen saturation is 96% on room air. Patient is currently under the bear hugger for multiple readings of hypo-thermia rectally HEENT: Head is atraumatic, normocephalic. Pupils equal, round. Sclerae is anicteric. NECK: Supple. No JVD. No lymphadenopathy. No thyromegaly. LUNGS:Diminished breath sounds at the bases with a few scattered crackles noted at the bases. No intercostal retractions. HEART: S1 and S2 muffled. ABDOMEN: Soft. Bowel sounds are present. No masses. No tenderness. EXTREMITIES: No pedal edema. No calf tenderness. NEUROLOGICAL: Patient is awake, alert and oriented x2-3. Cranial nerves 2 through 12 are grossly intact. - Labs CBC & Chem 7: 06/14/19 08:14 06/18/19 17:33 Labs: Abnormal Lab Results - Last 24 Hours (Table) 06/17/19 06/17/19 06/18/19 Range/Units 17:07 19:55 10:28 Potassium 5.8 H (3.5-5.1) mmol/L Chloride 114 H (98-107) mmol/L BUN 23 H (9-20) mg/dL Creatinine 1.64 H (0.66-1.25) mg/dL POC Glucose (mg/dL) 186 H 161 H (75-99) mg/dL Microbiology - Last 24 Hours (Table) 06/11/19 13:57 Blood Culture - Final Blood No Growth after 144 hours Assessment and Plan Assessment: Bilateral pneumonia, right more than the left, possibly aspiration, possibly hospital-acquired with early sepsis, present on admission Small bilateral pleural effusion Hypothermia, present on admission secondary to sepsis; patient is currently under a bear hugger for multiple readings of hypothermia, current rectal temp is 96.4F Change in mental status, metabolic encephalopathy, acute on chronic Mental handicap history Mild pancytopenia of undetermined origin Increased creatinine with possible chronic kidney disease stage III History of recent left leg cellulitis History of recent acute hypoxic respiratory failure secondary to congestive heart failure acute exacerbation, acute on chronic systolic function, as well as aspiration pneumonia Diabetes mellitus type 2 Hypertension Hyperlipidemia history of myocardial infarction History of anti-mitochondrial antibody positive recently History of bladder tumor history of coronary artery disease/stent History of cataracts Remote history of nicotine dependence Full code Recommendations and discussion: Recommend to continue current medications, management, and symptomatic treatment. Will continue to monitor closely. Nephrology is following closely. Will continue on IV antibiotics in the form of meropenem. Hypothermia improved. Patient was on bear hugger. Case management and social work are following as they are working with family about possible palliative or hospice care upon discharge. Social work is working on discharge plans as there may be issues with returning to the [facility] home if an increase in nursing care is needed. Family is discussing discharge plans for possible subacute rehab or palliative or hospice care and return to [facility] after getting a second opinion from possible visiting nurses [facility] as he had recently met with [facility] hospice and fired them immediately. Brother, also legal guardian was told or under the assumption that if he chose hospice he would lose all of his guardian rights for his brother and was very upset by this. Case management and social research assistant following closely. Due to multiple complex medical issues, prognosis is extremely guarded and poor. Further recommendations to follow. Time with Patient: Greater than 30
[2019-06-18 23:09] LABS: Glucose,Whole Blood 140 mg/dL (75-99)
[2019-06-19 01:09] LABS: Glucose,Whole Blood 126 mg/dL (75-99)
[2019-06-19 03:10] LABS: Glucose,Whole Blood 106 mg/dL (75-99)
[2019-06-19] MEDS: MEROPENEM 1 GM in SODIUM CHLORIDE 0.9% 100 ML IVPB SCH ×2 (04:07→17:17)
[2019-06-19 05:44] LABS: Glucose,Whole Blood 122 mg/dL (75-99)
[2019-06-19] MEDS: INSULIN ASPART (NovoLOG) 100 UNIT/ML VIAL SQ SCH ×7 (07:09→20:35)
[2019-06-19 07:10] LABS: Glucose,Whole Blood 123 mg/dL (75-99)
[2019-06-19] MEDS: ALBUTEROL NEBULIZED 2.5 MG/3 ML INHALATION SCH ×3 (07:12→18:52)
[2019-06-19] MEDS: LEVOTHYROXINE 50 MCG TAB PO SCH (07:36)
[2019-06-19] MEDS: CYANOCOBALAMIN 500 MCG TAB PO SCH (07:36)
[2019-06-19] MEDS: CHOLECALCIFEROL 1,000 UNIT TAB PO SCH (07:37)
[2019-06-19] MEDS: PANTOPRAZOLE 40 MG TABLET PO SCH (07:37)
[2019-06-19] MEDS: FERROUS SULFATE 325 MG TAB PO SCH ×2 (07:37→20:35)
[2019-06-19] MEDS: HEPARIN SODIUM,PORCINE 5,000 UNIT/ML 1 ML VIAL SQ SCH ×2 (07:37→20:35)
[2019-06-19] MEDS: LACTOBACILLUS ACIDOPH & BULGAR 1 EACH PACKET PO SCH (07:37)
[2019-06-19] MEDS: URSODIOL 300 MG CAP PO SCH ×3 (07:37→17:17)
[2019-06-19] MEDS: TAMSULOSIN 0.4 MG CAP.ER.24H PO SCH (07:37)
[2019-06-19] MEDS: DIVALPROEX ER 500 MG TAB.ER.24H PO SCH (07:37)
[2019-06-19] MEDS: NIFEdipine XL 30 MG TAB.ER.24 PO SCH (07:37)
[2019-06-19] MEDS: LISINOPRIL 5 MG TAB PO SCH (07:38)
[2019-06-19] MEDS: NYSTATIN 100,000 UNIT/GM POWD 15 GM TOPICAL SCH ×2 (07:38→20:35)
[2019-06-19 08:11] LABS: Calcium 8.3 mg/dL (8.4-10.2); Potassium 5.3 mmol/L (3.5-5.1)
[2019-06-19 11:11] LABS: Glucose,Whole Blood 345 mg/dL (75-99)
--- NOTE | 2019-06-19 11:41 | PN ---
PROGRESS NOTE The patient is seen for followup for acute kidney injury. Serum creatinine has been at about 1.6 mg/dL. Serum potassium was elevated yesterday to 5.8. The NIYA inhibitors are on hold. The patient received Kayexalate yesterday. Potassium is down to 5.3 today. The patient denies any significant complaints. PHYSICAL EXAMINATION: This morning blood pressure 156/67, heart rate 62 per minute, patient is afebrile. Examination of the heart S1, S2. Examination of the lungs, bilateral breath sounds are heard. ABDOMEN: Soft, nontender. Examination of lower extremities shows no evidence of edema. PHOTOVOLTAIC TESTING TECHNICIAN exam grossly intact. LAB: Show sodium 141, potassium 5.3, creatinine 1.6, BUN 21. ASSESSMENT: 1. Acute kidney injury, prerenal, currently improved. 2. Pneumonia with possible aspiration pneumonia maintained on antibiotics. 3. Chronic kidney disease stage 3 secondary to nephrosclerosis. 4. Hyperkalemia associated with acute kidney injury and use of NIYA inhibitors. Hold off on NIYA inhibitors for now. 5. Hypertension with chronic kidney disease, fair control. 6. Chronic kidney disease, mineral bone disorder. 7. Hypothermia, which is improved. PLAN: Maintain patient on low-potassium diet. DC lisinopril and repeat labs in a.m. Continue to encourage increased oral intake. MMODL / IJN: [id number] /
[2019-06-19 17:11] LABS: Glucose,Whole Blood 190 mg/dL (75-99)
[2019-06-19 19:56] LABS: Glucose,Whole Blood 187 mg/dL (75-99)
[2019-06-19] MEDS: FLUCONAZOLE 100 MG TAB PO SCH (20:35)
--- NOTE | 2019-06-19 23:20 | P.PN ---
Subjective Progress Note Date: 06/19/19 Principal diagnosis: Pneumonia Hypokalemia This is a 79-year-old male who was recently admitted with bilateral pneumonia right more so than left with possible aspiration and also having features of urinary tract infection and is being closely monitored. Patient was also found to be hypothermic and had features of sepsis. Multiple medical consultations are following. No acute overnight issues. Awaiting report from repeat barium swallow that was done today. Patient denies any chest pain, shortness of breath, or palpitations at this time. Patient is afebrile. Patient denies any nausea or vomiting and was nothing by mouth until swallow eval was done. Patient was having a swallow eval done at the bedside and tolerating nectar thickened apple juice. Will await report. Guarded prognosis. 06/14/2019 Patient is sitting up in bed in no acute distress eating breakfast and tolerating well. Patient is currently still on IV antibiotics in the form of meropenem and will continue at this time. Currently patient denies any chest pain, shortness of breath, or palpitations. Patient is afebrile. Patient denies any nausea or vomiting and is tolerating diet. Pulmonary and nephrology are following closely. Patient is on IV iron infusion per nephrology recommendations and will be receiving 2 more doses. Patient had a repeat chest x-ray today which which shows no significant interval change from previous x- ray. Patient is currently still on oxygen via nasal cannula at 2 L. Will continue to monitor closely. No acute overnight issues. Speech pathology has seen the patient again today and patient is currently tolerating a dysphagia level III chopped diet with nectar thickened liquids and is to continue maintaining aspiration precautions. Patient did much better today with eating and tolerating. Will continue to monitor. Guarded prognosis. 06/15/2019 Patient is sitting up in bed in no acute distress. Patient is currently receiving iron infusions per nephrology recommendations on #2 of 3. Brother [place] is at the bedside. Per nursing staff patient had low rectal times overnight with a repeat this morning showing 97.6F. Patient was put on a bear hugger for temp regulation and is being closely monitored. Pulmonary and nephrology are following. Patient had an episode of hypoglycemia this morning and was 40 and was rechecked after orange juice administration and was normal. Will continue to monitor closely. Patient is currently maintained on IV antibiotics and will continue at this time. Is denying any chest pain, shortness of breath, or palpitations at this time. Patient denies any nausea or vomiting and is tolerating diet. Patient is currently tolerating his nectar thickened liquids with no choking issues. Guarded prognosis. 06/16/2019 Patient is sitting up in the chair in no acute distress eating lunch and tolerating well. Patient is receiving his third dose of iron infusion today and will repeat labs in the morning. Patient's blood sugars have been fluctuating and will adjust medications accordingly. Patient denies any chest pain, shortness of breath, or palpitations at this time. Patient is afebrile. Bridgette ent is actually hypo-thermic and being closely monitored. No acute overnight issues. Will continue to monitor. 06/17/2019 Patient is sitting up in bed in no acute distress currently under the bear hugger as he continues to be hypothermic with a rectal temp of 93.3F. No acute overnight issues. Patient's blood sugars continue to be fluctuating and running low in the early mornings and then spiking up into the 2 to 300s by 4-5 PM. Discussed with the nursing staff about continuing with sliding scale and also to continue with regimented timing of medications. Currently patient denies any ch est pain, shortness of breath, or palpitations at this time. Patient denies any nausea or vomiting and is tolerating nectar thickened liquids with dysphagia 3 chopped diet with no issues of aspiration at this time. Met with [place], his brother and guardian along with [facility] and representatives from [facility] along with social work today and discussed possible options for discharge planning. Discussed at length about possible palliative or hospice care or a rehab placement upon discharge as some options and [place] stated he would like to discuss this with his and sister who are coguardian's. Social work will continue to follow. [place] briefly talked with [facility] hospice and fired them immediately as he felt uncomfortable with their presentation of hospice or palliative and would like to talk with somebody else. This will be arranged with social work. Nephrology is following closely. Will continue to monitor. Extremely guarded prognosis. 06/18/2019 Patient is awake alert and is sitting on the bed comfortably. Tolerated oral diet this afternoon. Currently on dysphagia diet. Temperature went up to 97.4. Otherwise blood sugar went down to 46 today afternoon. Denied any complaints of chest pain or shortness of breath. No nausea vomiting or abdominal pain. Patient's brother is his legal guardian. Awaiting to discuss with hospice care. 06/19/2019 Patient is awake and alert. Sitting in the bed comfortably. No hypothermia. Tolerating oral diet dysphagia diet. Currently on antibiotics for pneumonia. Laboratory data showed a creatinine level increased to 1.6 and slightly elevated potassium level at 5.3. Blood sugar is elevated is soft and is being continued on insulin sliding scale and with NovoLog 4 units 3 times a day before meals. Follow-up CBC and BMP tomorrow. Patient's brother who is the legal guardian would like to discuss with hospice care. REVIEW OF SYSTEMS: ENT: Reports no diminished vision or hearing. CARDIOVASCULAR: Denies chest pain or palpitations. RESPIRATORY: Denies any shortness of breath or cough GI: No nausea, vomiting or diarrhea. : No dysuria or retention. Chronic Romero catheter NERVOUS SYSTEM: No numbness MUSCULOSKELETAL: Reports generalized weakness. HEMATOLOGY/ONCOLOGY: history of anemia. ENDOCRINE: Reports diabetes and hypothyroidism. CONSTITUTIONAL: As mentioned earlier. Active Medications Acetaminophen (Tylenol Tab) 650 mg PO Q4HR PRN PRN Reason: Fever and/ or Pain Last Admin: 06/12/19 08:17 Dose: 650 mg Documented by: Albuterol Sulfate (Ventolin Nebulized) 2.5 mg INHALATION RT-TID COUNT INCLUDES THE [facility] Last Admin: 06/18/19 19:35 Dose: Not Given Documented by: Calcitriol (Rocaltrol) 0.25 mcg PO Q48H COUNT INCLUDES THE [facility] Last Admin: 06/18/19 08:06 Dose: 0.25 mcg Documented by: Cholecalciferol (Vitamin D3 (25 Mcg = 1000 Iu)) 2,000 unit PO DAILY@0800 COUNT INCLUDES THE [facility] Last Admin: 06/18/19 08:06 Dose: 2,000 unit Documented by: Cyanocobalamin (Vitamin B-12) 1,000 mcg PO DAILY COUNT INCLUDES THE [facility] Last Admin: 06/18/19 08:07 Dose: 1,000 mcg Documented by: Divalproex Sodium (Depakote Er) 1,000 mg PO DAILY@0800 COUNT INCLUDES THE [facility] Last Admin: 06/18/19 08:07 Dose: 1,000 mg Documented by: Ferrous Sulfate (Feosol) 325 mg PO BID@0800,2100 COUNT INCLUDES THE [facility] Last Admin: 06/18/19 21:00 Dose: 325 mg Documented by: Fluconazole (Diflucan) 100 mg PO DAILY@2100 COUNT INCLUDES THE [facility] Last Admin: 06/18/19 21:00 Dose: 100 mg Documented by: Heparin Sodium (Porcine) (Heparin) 5,000 unit SQ Q12HR COUNT INCLUDES THE [facility] Last Admin: 06/18/19 21:00 Dose: 5,000 unit Documented by: Meropenem 1 gm/ Sodium (Chloride) 100 mls @ 200 mls/hr IVPB Q12H COUNT INCLUDES THE [facility]; Protocol Last Admin: 06/18/19 17:15 Dose: 200 mls/hr Documented by: Insulin Aspart (Novolog) 0 unit SQ ACHS COUNT INCLUDES THE [facility]; Protocol Last Admin: 06/18/19 22:43 Dose: Not Given Documented by: Insulin Aspart (Novolog) 3 unit SQ AC-TID COUNT INCLUDES THE [facility] Lactobacillus Acidoph/Bulgaricus (Lactinex) 1 each PO DAILY@0800 COUNT INCLUDES THE [facility] Last Admin: 06/18/19 08:06 Dose: 1 each Documented by: Levothyroxine Sodium (Synthroid) 50 mcg PO DAILY@0830 COUNT INCLUDES THE [facility] Last Admin: 06/18/19 08:07 Dose: 50 mcg Documented by: Lisinopril (Zestril) 5 mg PO DAILY@0800 COUNT INCLUDES THE [facility] Last Admin: 06/18/19 11:40 Dose: Not Given Documented by: Miscellaneous Information (Pneumonia Protocol Utilized) 1 each PO ONCE PRN PRN Reason: Per Protocol Nifedipine (Procardia Xl) 30 mg PO DAILY@0800 COUNT INCLUDES THE [facility] Last Admin: 06/18/19 08:06 Dose: 30 mg Documented by: Nystatin (Mycostatin Powder) 1 applic TOPICAL BID@0800,1999 COUNT INCLUDES THE [facility] Last Admin: 06/18/19 21:00 Dose: 1 applic Documented by: Pantoprazole Sodium (Protonix) 40 mg PO DAILY@0730 COUNT INCLUDES THE [facility] Last Admin: 06/18/19 08:06 Dose: 40 mg Documented by: Polyethylene Glycol (Miralax) 17 gm PO DAILY PRN PRN Reason: Constipation Senna (Senokot) 17.2 mg PO HS PRN PRN Reason: Constipation Tamsulosin HCl (Flomax) 0.4 mg PO DAILY@0800 COUNT INCLUDES THE [facility] Last Admin: 06/18/19 08:07 Dose: 0.4 mg Documented by: Ursodiol (Actigall) 300 mg PO AC-TID COUNT INCLUDES THE [facility] Last Admin: 06/18/19 17:15 Dose: 300 mg Documented by: Objective - Vital Signs Vital signs: Vital Signs Temp 97 F L 06/19/19 12:03 Pulse 67 06/19/19 12:03 Resp 17 06/19/19 12:03 BP 145/74 06/19/19 12:03 Pulse Ox 94 L 06/19/19 12:03 Intake & Output 06/18/19 06/19/19 06/19/19 18:59 06:59 18:59 Intake Total 100 1310 100 Output Total 1300 Balance 100 10 100 Intake: Intake, IV Titration 100 450 100 Amount Dextrose 10 % in Water 250 250 ml @ 999 mls/hr IV ONCE ONE Rx#:[id number] Meropenem 1 gm In Sodium 100 200 100 Chloride 0.9% 100 ml @ 200 mls/hr IVPB Q12H COUNT INCLUDES THE [facility] Rx#:[id number] Oral 860 Output: Urine 900 Uretheral (Romero) 500 Stool 400 Other: Voiding Method Indwelling Catheter Indwelling Catheter Indwelling Catheter - Exam Gen: This is a 79 year old male sitting up in bed in no acute distress. Vital signs are stable. oxygen saturation is 96% on room air. Patient is currently under the bear hugger for multiple readings of hypo-thermia rectally HEENT: Head is atraumatic, normocephalic. Pupils equal, round. Sclerae is anicteric. NECK: Supple. No JVD. No lymphadenopathy. No thyromegaly. LUNGS:Diminished breath sounds at the bases with a few scattered crackles noted at the bases. No intercostal retractions. HEART: S1 and S2 muffled. ABDOMEN: Soft. Bowel sounds are present. No masses. No tenderness. EXTREMITIES: No pedal edema. No calf tenderness. NEUROLOGICAL: Patient is awake, alert and oriented x2-3. Cranial nerves 2 through 12 are grossly intact. - Labs CBC & Chem 7: 06/14/19 08:14 06/19/19 07:22 Labs: Abnormal Lab Results - Last 24 Hours (Table) 06/18/19 06/18/19 06/18/19 Range/Units 17:33 19:18 21:19 Potassium (3.5-5.1) mmol/L Chloride (98-107) mmol/L BUN (9-20) mg/dL Creatinine (0.66-1.25) mg/dL Glucose 73 L (74-99) mg/dL POC Glucose (mg/dL) 219 H 162 H (75-99) mg/dL Calcium (8.4-10.2) mg/dL 06/18/19 06/19/19 06/19/19 Range/Units 23:08 00:27 01:08 Potassium 5.2 H (3.5-5.1) mmol/L Chloride (98-107) mmol/L BUN (9-20) mg/dL Creatinine (0.66-1.25) mg/dL Glucose (74-99) mg/dL POC Glucose (mg/dL) 140 H 126 H (75-99) mg/dL Calcium (8.4-10.2) mg/dL 06/19/19 06/19/19 06/19/19 Range/Units 03:08 05:42 07:08 Potassium (3.5-5.1) mmol/L Chloride (98-107) mmol/L BUN (9-20) mg/dL Creatinine (0.66-1.25) mg/dL Glucose (74-99) mg/dL POC Glucose (mg/dL) 106 H 122 H 123 H (75-99) mg/dL Calcium (8.4-10.2) mg/dL 06/19/19 06/19/19 Range/Units 07:22 11:10 Potassium 5.3 H (3.5-5.1) mmol/L Chloride 112 H (98-107) mmol/L BUN 21 H (9-20) mg/dL Creatinine 1.61 H (0.66-1.25) mg/dL Glucose 115 H (74-99) mg/dL POC Glucose (mg/dL) 345 H (75-99) mg/dL Calcium 8.3 L (8.4-10.2) mg/dL Assessment and Plan Assessment: Bilateral pneumonia, right more than the left, possibly aspiration, possibly hospital-acquired with early sepsis, present on admission Small bilateral pleural effusion Hypothermia, present on admission secondary to sepsis; patient is currently under a bear hugger for multiple readings of hypothermia, current rectal temp is 96.4F Change in mental status, metabolic encephalopathy, acute on chronic Mental handicap history Mild pancytopenia of undetermined origin Increased creatinine with possible chronic kidney disease stage III History of recent left leg cellulitis History of recent acute hypoxic respiratory failure secondary to congestive heart failure acute exacerbation, acute on chronic systolic function, as well as aspiration pneumonia Diabetes mellitus type 2 Hypertension Hyperlipidemia history of myocardial infarction History of anti-mitochondrial antibody positive recently History of bladder tumor history of coronary artery disease/stent History of cataracts Remote history of nicotine dependence Full code Recommendations and discussion: Recommend to continue current medications, management, and symptomatic treatment. Will continue to monitor closely. Nephrology is following closely. Will continue on IV antibiotics in the form of meropenem. Hypothermia improved. Patient was on bear hugger. Case management and social work are following as they are working with family about possible palliative or hospice care upon discharge. Social work is working on discharge plans as there may be issues with returning to the [facility] home if an increase in nursing care is needed. Family is discussing discharge plans for possible subacute rehab or palliative or hospice care and return to [facility] after getting a second opinion from possible visiting [facility] as he had recently met with [facility] hospice and fired them immediately. Brother, also legal guardian was told or under the assumption that if he chose hospice he would lose all of his guardian rights for his brother and was very upset by this. Case management and psychiatric social worker supervisor following closely. Due to multiple complex medical issues, prognosis is extremely guarded and poor. Further recommendations to follow. Time with Patient: Greater than 30
[2019-06-20] MEDS: ALBUTEROL NEBULIZED 2.5 MG/3 ML INHALATION SCH ×3 (07:11→19:47)
[2019-06-20 07:18] LABS: Glucose,Whole Blood 58 mg/dL (75-99)
[2019-06-20 07:38] LABS: Glucose,Whole Blood 99 mg/dL (75-99)
[2019-06-20 07:42] LABS: Calcium 8.4 mg/dL (8.4-10.2)
[2019-06-20 07:51] LABS: Basophils % (A) 1 %; Eosinophils # (A) 0.1 k/uL (0-0.7); Eosinophils % (A) 2 %; HCT 23.3 % (39.0-53.0); HGB 7.5 gm/dL (13.0-17.5); Hypochromasia Moderate; Lymphocytes # (A) 0.7 k/uL (1.0-4.8); Lymphocytes % (A) 22 %; MCV 106.2 fL (80.0-100.0); Macrocytosis Moderate; Mean Platelet Volume 7.3; Monocytes # (A) 0.2 k/uL (0-1.0); Monocytes % (A) 4 %; Neutrophils # (A) 2.3 k/uL (1.3-7.7); Neutrophils % (A) 68 %; RDW 15.9 % (11.5-15.5); WBC 3.3 k/uL (3.8-10.6)
[2019-06-20 08:00] LABS: Platelet Count 69 k/uL (150-450)
[2019-06-20] MEDS: INSULIN ASPART (NovoLOG) 100 UNIT/ML VIAL SQ SCH ×7 (08:04→20:39)
[2019-06-20] MEDS: FERROUS SULFATE 325 MG TAB PO SCH ×2 (08:05→20:39)
[2019-06-20] MEDS: DIVALPROEX ER 500 MG TAB.ER.24H PO SCH (08:05)
[2019-06-20] MEDS: URSODIOL 300 MG CAP PO SCH ×3 (08:05→18:15)
[2019-06-20] MEDS: LISINOPRIL 5 MG TAB PO SCH (08:05)
[2019-06-20] MEDS: PANTOPRAZOLE 40 MG TABLET PO SCH (08:05)
[2019-06-20] MEDS: CHOLECALCIFEROL 1,000 UNIT TAB PO SCH (08:05)
[2019-06-20] MEDS: LACTOBACILLUS ACIDOPH & BULGAR 1 EACH PACKET PO SCH (08:07)
[2019-06-20] MEDS: CALCITRIOL 0.25 MCG CAP PO SCH (08:08)
[2019-06-20] MEDS: NYSTATIN 100,000 UNIT/GM POWD 15 GM TOPICAL SCH ×2 (08:08→21:03)
[2019-06-20] MEDS: NIFEdipine XL 30 MG TAB.ER.24 PO SCH (08:08)
[2019-06-20] MEDS: TAMSULOSIN 0.4 MG CAP.ER.24H PO SCH (08:08)
[2019-06-20] MEDS: LEVOTHYROXINE 50 MCG TAB PO SCH (08:08)
[2019-06-20] MEDS: CYANOCOBALAMIN 500 MCG TAB PO SCH (08:08)
[2019-06-20] MEDS: HEPARIN SODIUM,PORCINE 5,000 UNIT/ML 1 ML VIAL SQ SCH ×2 (08:09→20:39)
--- NOTE | 2019-06-20 10:32 | P.PN ---
Subjective Patient is seen in follow-up for acute kidney injury on chronic kidney disease. Patient is chronic kidney disease stage III with baseline creatinine in the range of 1.3-1.5. Renal function is stable. Patient just fell asleep. No changes overnight. Nurse present at bedside. Vital signs are stable. General: The patient appeared well nourished and normally developed. HEENT: Head exam is unremarkable. Neck is without jugular venous distension. LUNGS: Lungs are clear to auscultation and percussion. Breath sounds decreased. HEART: Rate and Rhythm are regular. First and second heart sounds normal. No murmurs, rubs or gallops. ABDOMEN: Abdominal exam reveals normal bowel sounds. Non-tender and non- distended. No evidence of peritonitis. EXTREMITITES: No clubbing, cyanosis, or edema. Objective - Vital Signs Vital signs: Vital Signs Temp 96.2 F L 06/20/19 04:27 Pulse 72 06/20/19 07:11 Resp 16 06/20/19 04:17 BP 146/68 06/20/19 04:17 Pulse Ox 97 06/20/19 04:17 Intake & Output 06/19/19 06/20/19 06/20/19 18:59 06:59 18:59 Intake Total 100 690 Output Total 450 500 Balance -350 190 Intake: Intake, IV Titration 100 Amount Meropenem 1 gm In Sodium 100 Chloride 0.9% 100 ml @ 200 mls/hr IVPB Q12H [facility] Rx#:[id number] Oral 690 Output: Urine 450 500 Uretheral (Romero) 500 Other: Voiding Method Indwelling Catheter Indwelling Catheter - Labs CBC & Chem 7: 06/20/19 06:43 06/20/19 06:43 Labs: Abnormal Lab Results - Last 24 Hours (Table) 06/19/19 06/19/19 06/19/19 Range/Units 11:10 17:10 19:55 WBC (3.8-10.6) k/uL RBC (4.30-5.90) m/uL Hgb (13.0-17.5) gm/dL Hct (39.0-53.0) % MCV (80.0-100.0) fL RDW (11.5-15.5) % Plt Count (150-450) k/uL Lymphocytes # (1.0-4.8) k/uL Chloride (98-107) mmol/L Creatinine (0.66-1.25) mg/dL Glucose (74-99) mg/dL POC Glucose (mg/dL) 345 H 190 H 187 H (75-99) mg/dL 06/20/19 06/20/19 06/20/19 Range/Units 06:43 06:43 07:16 WBC 3.3 L (3.8-10.6) k/uL RBC 2.20 L (4.30-5.90) m/uL Hgb 7.5 L (13.0-17.5) gm/dL Hct 23.3 L (39.0-53.0) % MCV 106.2 H (80.0-100.0) fL RDW 15.9 H (11.5-15.5) % Plt Count 69 L D (150-450) k/uL Lymphocytes # 0.7 L (1.0-4.8) k/uL Chloride 113 H (98-107) mmol/L Creatinine 1.55 H (0.66-1.25) mg/dL Glucose 46 L* (74-99) mg/dL POC Glucose (mg/dL) 58 L (75-99) mg/dL Assessment and Plan Plan: Assessment: 1. Acute kidney injury mostly prerenal secondary to infection and diuresis. Renal function stable. Creatinine 1.55 today. UA benign. No evidence of hydronephrosis noted on kidney ultrasound. Right kidney noted to be small. 2. Pneumonia with concern for aspiration. s/p antibiotics. 3. Chronic kidney disease stage III secondary to nephrosclerosis with baseline creatinine in the range of 1.3-1.5. 4. Anemia of chronic kidney disease. Iron deficiency noted. Status post 3 doses of IV iron. 5. Insulin-dependent diabetes mellitus. 6. Hypertension with chronic kidney disease. 7. Chronic kidney disease mineral bone disease maintained on calcitriol. 8. Hypothermia. Possibly due to infection. TSH only mildly elevated. Better. Plan: Encouraged oral intake. Remains off IV fluids. Avoid nephrotoxins. Discontinue lisinopril. Will increase the dose of nifedipine to 60 mg daily if blood pressure staying above 140/90. Add Aranesp.
[2019-06-20] MEDS ORDERED: DARBEPOETIN ALFA 40 MCG/0.4 ML SYRINGE SQ SCH (11:00)
[2019-06-20 11:17] LABS: Glucose,Whole Blood 208 mg/dL (75-99)
--- NOTE | 2019-06-20 15:12 | P.PN ---
Subjective Progress Note Date: 06/20/19 Principal diagnosis: This is a 79-year-old male who was recently admitted with bilateral pneumonia right more so than left with possible aspiration and also having features of urinary tract infection and is being closely monitored. Patient was also found to be hypothermic and had features of sepsis. Multiple medical consultations are following. No acute overnight issues. Awaiting report from repeat barium swallow that was done today. Patient denies any chest pain, shortness of breath, or palpitations at this time. Patient is afebrile. Patient denies any nausea or vomiting and was nothing by mouth until swallow eval was done. Patient was having a swallow eval done at the bedside and tolerating nectar thickened apple juice. Will await report. Guarded prognosis. 06/14/2019 Patient is sitting up in bed in no acute distress eating breakfast and tolerating well. Patient is currently still on IV antibiotics in the form of meropenem and will continue at this time. Currently patient denies any chest pain, shortness of breath, or palpitations. Patient is afebrile. Patient denies any nausea or vomiting and is tolerating diet. Pulmonary and nephrology are following closely. Patient is on IV iron infusion per nephrology recommendations and will be receiving 2 more doses. Patient had a repeat chest x-ray today which which shows no significant interval change from previous x- ray. Patient is currently still on oxygen via nasal cannula at 2 L. Will evie nue to monitor closely. No acute overnight issues. Speech pathology has seen the patient again today and patient is currently tolerating a dysphagia level III chopped diet with nectar thickened liquids and is to continue maintaining aspiration precautions. Patient did much better today with eating and tolerating. Will continue to monitor. Guarded prognosis. 06/15/2019 Patient is sitting up in bed in no acute distress. Patient is currently receiving iron infusions per nephrology recommendations on #2 of 3. Brother [place] is at the bedside. Per nursing staff patient had low rectal times overnight with a repeat this morning showing 97.6F. Patient was put on a bear hugger for temp regulation and is being closely monitored. Pulmonary and nephrology are following. Patient had an episode of hypoglycemia this morning and was 40 and was rechecked after orange juice administration and was normal. Will continue to monitor closely. Patient is currently maintained on IV antibiotics and will continue at this time. Is denying any chest pain, shortness of breath, or palpitations at this time. Patient denies any nausea or vomiting and is tolerating diet. Patient is currently tolerating his nectar thickened liquids with no choking issues. Guarded prognosis. 06/16/2019 Patient is sitting up in the chair in no acute distress eating lunch and tolerating well. Patient is receiving his third dose of iron infusion today and will repeat labs in the morning. Patient's blood sugars have been fluctuating and will adjust medications accordingly. Patient denies any chest pain, sh ortness of breath, or palpitations at this time. Patient is afebrile. Patient is actually hypo-thermic and being closely monitored. No acute overnight issues. Will continue to monitor. 06/17/2019 Patient is sitting up in bed in no acute distress currently under the bear hugger as he continues to be hypothermic with a rectal temp of 93.3F. No acute overnight issues. Patient's blood sugars continue to be fluctuating and running low in the early mornings and then spiking up into the 2 to 300s by 4-5 PM. Discussed with the nursing staff about continuing with sliding scale and also to continue with regimented timing of medications. Currently patient denies any chest pain, shortness of breath, or palpitations at this time. Patient denies any nausea or vomiting and is tolerating nectar thickened liquids with dysphagia 3 chopped diet with no issues of aspiration at this time. Met with [place], his brother and guardian along with [facility] and representatives from [facility] along with social work today and discussed possible options for discharge planning. Discussed at length about possible palliative or hospice care or a rehab placement upon discharge as some options and [place] stated he would like to discuss this with his and sister who are coguardian's. Social work will continue to follow. [place] briefly talked with [facility] hospice and fired them immediately as he felt uncomfortable with their presentation of hospice or palliative and would like to talk with somebody else. This will be arranged with social work. Nephrology is following closely. Will continue to monitor. Extremely guarded prognosis. REVIEW OF SYSTEMS: ENT: Reports no diminished vision or hearing. CARDIOVASCULAR: Denies chest pain or palpitations. RESPIRATORY: Denies any shortness of breath or cough GI: No nausea, vomiting or diarrhea. : No dysuria or retention. Chronic Romero catheter NERVOUS SYSTEM: No numbness MUSCULOSKELETAL: Reports generalized weakness. HEMATOLOGY/ONCOLOGY: history of anemia. ENDOCRINE: Reports diabetes and hypothyroidism. CONSTITUTIONAL: As mentioned earlier. Active Medications Acetaminophen (Tylenol Tab) 650 mg PO Q4HR PRN PRN Reason: Fever and/ or Pain Last Admin: 06/12/19 08:17 Dose: 650 mg Documented by: Albuterol Sulfate (Ventolin Nebulized) 2.5 mg INHALATION RT-TID [facility] Last Admin: 06/17/19 13:41 Dose: 2.5 mg Documented by: Calcitriol (Rocaltrol) 0.25 mcg PO Q48H [facility] Last Admin: 06/16/19 09:44 Dose: 0.25 mcg Documented by: Cholecalciferol (Vitamin D3 (25 Mcg = 1000 Iu)) 2,000 unit PO DAILY@0800 [facility] Last Admin: 06/17/19 08:52 Dose: 2,000 unit Documented by: Cyanocobalamin (Vitamin B-12) 1,000 mcg PO DAILY [facility] Last Admin: 06/17/19 08:53 Dose: 1,000 mcg Documented by: Divalproex Sodium (Depakote Er) 1,000 mg PO DAILY@0800 [facility] Last Admin: 06/17/19 09:46 Dose: 1,000 mg Documented by: Ferrous Sulfate (Feosol) 325 mg PO BID@0800,2100 [facility] Last Admin: 06/17/19 08:53 Dose: 325 mg Documented by: Fluconazole (Diflucan) 100 mg PO DAILY@2100 [facility] Last Admin: 06/16/19 22:28 Dose: 100 mg Documented by: Heparin Sodium (Porcine) (Heparin) 5,000 unit SQ Q12HR [facility] Last Admin: 06/17/19 08:47 Dose: 5,000 unit Documented by: Meropenem 1 gm/ Sodium (Chloride) 100 mls @ 200 mls/hr IVPB Q12H [facility]; Protocol Last Admin: 06/17/19 03:28 Dose: 200 mls/hr Documented by: Insulin Aspart (Novolog) 0 unit SQ ACHS [facility]; Protocol Last Admin: 06/17/19 12:49 Dose: 2 unit Documented by: Insulin Aspart (Novolog) 5 unit SQ AC-BID [facility] Last Admin: 06/17/19 08:05 Dose: 5 unit Documented by: Lactobacillus Acidoph/Bulgaricus (Lactinex) 1 each PO DAILY@0800 [facility] Last Admin: 06/17/19 08:53 Dose: 1 each Documented by: Levothyroxine Sodium (Synthroid) 50 mcg PO DAILY@0830 [facility] Last Admin: 06/17/19 08:52 Dose: 50 mcg Documented by: Lisinopril (Zestril) 5 mg PO DAILY@0800 [facility] Last Admin: 06/17/19 08:53 Dose: 5 mg Documented by: Miscellaneous Information (Pneumonia Protocol Utilized) 1 each PO ONCE PRN PRN Reason: Per Protocol Nifedipine (Procardia Xl) 30 mg PO DAILY@0800 [facility] Last Admin: 06/17/19 08:53 Dose: 30 mg Documented by: Nystatin (Mycostatin Powder) 1 applic TOPICAL BID@08,1999 [facility] Last Admin: 06/17/19 10:20 Dose: 1 applic Documented by: Pantoprazole Sodium (Protonix) 40 mg PO DAILY@0730 [facility] Last Admin: 06/17/19 08:06 Dose: 40 mg Documented by: Polyethylene Glycol (Miralax) 17 gm PO DAILY PRN PRN Reason: Constipation Senna (Senokot) 17.2 mg PO HS PRN PRN Reason: Constipation Tamsulosin HCl (Flomax) 0.4 mg PO DAILY@0800 [facility] Last Admin: 06/17/19 08:52 Dose: 0.4 mg Documented by: Ursodiol (Actigall) 300 mg PO AC-TID [facility] Last Admin: 06/17/19 12:31 Dose: 300 mg Documented by: 06/18/2019 Patient is awake alert and is sitting on the bed comfortably. Tolerated oral diet this afternoon. Currently on dysphagia diet. Temperature went up to 97.4. Otherwise blood sugar went down to 46 today afternoon. Denied any complaints of chest pain or shortness of breath. No nausea vomiting or abdominal pain. Patient's brother is his legal guardian. Awaiting to discuss with hospice care. 06/19/2019 Patient is awake and alert. Sitting in the bed comfortably. No hypothermia. Tolerating oral diet dysphagia diet. Currently on antibiotics for pneumonia. Laboratory data showed a creatinine level increased to 1.6 and slightly elevated potassium level at 5.3. Blood sugar is elevated is soft and is being continued on insulin sliding scale and with NovoLog 4 units 3 times a day before meals. Follow-up CBC and BMP tomorrow. Patient's brother who is the legal guardian would like to discuss with hospice care. 06/20/2019 Patient is sitting up in bed in no acute distress at this time. No acute overnight issues. Patient hypothermia has improved. Patient continues to have low and high blood glucose levels and is being closely monitored. Nephrology is following closely. Patient denies any shortness of breath, chest pain, or palpitations at this time. Patient is afebrile. Patient denies any nausea or vomiting and is tolerating diet. Patient is to continue with dysphasia diet and nectar thickened liquids. Discussed with case management and social work today in detail about possible discharge plans and guardian, [place], also his brother have made the decision that they do not want hospice at this time. [facility] home will not be able to take him back at this time due to his increased medical needs and patient will be looking for placement at an ECF home. Awaiting authorization for [facility] for long-term placement. Will continue to monitor closely. Guarded prognosis. REVIEW OF SYSTEMS: ENT: No diminished vision or hearing. CARDIOVASCULAR: Mentioned earlier. RESPIRATORY: As mentioned earlier. GI: No nausea, vomiting or diarrhea. : No dysuria or retention. Chronic Romero catheter NERVOUS SYSTEM: Reports generalized weakness. HEMATOLOGY/ONCOLOGY: Reports history of anemia. ENDOCRINE: Reports diabetes and hypothyroidism. CONSTITUTIONAL: No fatigue or fever. DERMATOLOGY: Negative. Active Medications Acetaminophen (Tylenol Tab) 650 mg PO Q4HR PRN PRN Reason: Fever and/ or Pain Last Admin: 06/12/19 08:17 Dose: 650 mg Documented by: Albuterol Sulfate (Ventolin Nebulized) 2.5 mg INHALATION RT-TID [facility] Last Admin: 06/20/19 12:10 Dose: 2.5 mg Documented by: Calcitriol (Rocaltrol) 0.25 mcg PO Q48H [facility] Last Admin: 06/20/19 08:08 Dose: 0.25 mcg Documented by: Cholecalciferol (Vitamin D3 (25 Mcg = 1000 Iu)) 2,000 unit PO DAILY@0800 [facility] Last Admin: 06/20/19 08:05 Dose: 2,000 unit Documented by: Cyanocobalamin (Vitamin B-12) 1,000 mcg PO DAILY [facility] Last Admin: 06/20/19 08:08 Dose: 1,000 mcg Documented by: Darbepoetin Robby (Aranesp) 40 mcg SQ Q7D [facility] Last Admin: 06/20/19 14:15 Dose: 40 mcg Documented by: Divalproex Sodium (Depakote Er) 1,000 mg PO DAILY@0800 [facility] Last Admin: 06/20/19 08:05 Dose: 1,000 mg Documented by: Ferrous Sulfate (Feosol) 325 mg PO BID@08,2099 [facility] Last Admin: 06/20/19 08:05 Dose: 325 mg Documented by: Fluconazole (Diflucan) 100 mg PO DAILY@2099 [facility] Last Admin: 06/19/19 20:35 Dose: 100 mg Documented by: Heparin Sodium (Porcine) (Heparin) 5,000 unit SQ Q12HR [facility] Last Admin: 06/20/19 08:09 Dose: 5,000 unit Documented by: Insulin Aspart (Novolog) 0 unit SQ ACHS [facility]; Protocol Last Admin: 06/20/19 12:44 Dose: 3 unit Documented by: Insulin Aspart (Novolog) 4 unit SQ AC-TID [facility] Last Admin: 06/20/19 12:44 Dose: 4 unit Documented by: Lactobacillus Acidoph/Bulgaricus (Lactinex) 1 each PO DAILY@0800 [facility] Last Admin: 06/20/19 08:07 Dose: 1 each Documented by: Levothyroxine Sodium (Synthroid) 50 mcg PO DAILY@0830 [facility] Last Admin: 06/20/19 08:08 Dose: 50 mcg Documented by: Miscellaneous Information (Pneumonia Protocol Utilized) 1 each PO ONCE PRN PRN Reason: Per Protocol Nifedipine (Procardia Xl) 30 mg PO DAILY@0800 [facility] Last Admin: 06/20/19 08:08 Dose: 30 mg Documented by: Nystatin (Mycostatin Powder) 1 applic TOPICAL BID@ [facility] Last Admin: 06/20/19 08:08 Dose: 1 applic Documented by: Pantoprazole Sodium (Protonix) 40 mg PO DAILY@0730 [facility] Last Admin: 06/20/19 08:05 Dose: 40 mg Documented by: Polyethylene Glycol (Miralax) 17 gm PO DAILY PRN PRN Reason: Constipation Senna (Senokot) 17.2 mg PO HS PRN PRN Reason: Constipation Tamsulosin HCl (Flomax) 0.4 mg PO DAILY@0800 [facility] Last Admin: 06/20/19 08:08 Dose: 0.4 mg Documented by: Ursodiol (Actigall) 300 mg PO AC-TID [facility] Last Admin: 06/20/19 12:44 Dose: 300 mg Documented by: Objective - Vital Signs Vital signs: Vital Signs Temp 97.4 F L 06/20/19 11:45 Pulse 68 06/20/19 12:20 Resp 20 06/20/19 11:45 BP 155/71 06/20/19 11:45 Pulse Ox 98 06/20/19 11:45 Intake & Output 06/19/19 06/20/19 06/20/19 18:59 06:59 18:59 Intake Total 100 690 480 Output Total 450 500 475 Balance -350 190 5 Intake: Intake, IV Titration 100 Amount Meropenem 1 gm In Sodium 100 Chloride 0.9% 100 ml @ 200 mls/hr IVPB Q12H [facility] Rx#:[id number] Oral 690 480 Output: Urine 450 500 475 Uretheral (Romero) 500 Other: Voiding Method Indwelling Catheter Indwelling Catheter Indwelling Catheter - Exam Gen: This is a 79 year old male sitting up in bed in no acute distress. Vital signs are stable. Temp is 97.4 F, pulse is 60, respirations are 20, blood pres sure is 155/71, oxygen saturation is 98% on room air. HEENT: Head is atraumatic, normocephalic. Pupils equal, round. Sclerae is anicteric. NECK: Supple. No JVD. No lymphadenopathy. No thyromegaly. LUNGS:Diminished breath sounds at the bases otherwise clear to auscultation. No intercostal retractions. HEART: S1 and S2 muffled. ABDOMEN: Soft. Bowel sounds are present. No masses. No tenderness. EXTREMITIES: No pedal edema. No calf tenderness. NEUROLOGICAL: Patient is awake, alert and oriented x2-3. Cranial nerves 2 through 12 are grossly intact. - Labs CBC & Chem 7: 06/20/19 06:43 06/20/19 06:43 Labs: Abnormal Lab Results - Last 24 Hours (Table) 06/19/19 06/19/19 06/20/19 Range/Units 17:10 19:55 06:43 WBC 3.3 L (3.8-10.6) k/uL RBC 2.20 L (4.30-5.90) m/uL Hgb 7.5 L (13.0-17.5) gm/dL Hct 23.3 L (39.0-53.0) % MCV 106.2 H (80.0-100.0) fL RDW 15.9 H (11.5-15.5) % Plt Count 69 L D (150-450) k/uL Lymphocytes # 0.7 L (1.0-4.8) k/uL Chloride (98-107) mmol/L Creatinine (0.66-1.25) mg/dL Glucose (74-99) mg/dL POC Glucose (mg/dL) 190 H 187 H (75-99) mg/dL 06/20/19 06/20/19 06/20/19 Range/Units 06:43 07:16 11:15 WBC (3.8-10.6) k/uL RBC (4.30-5.90) m/uL Hgb (13.0-17.5) gm/dL Hct (39.0-53.0) % MCV (80.0-100.0) fL RDW (11.5-15.5) % Plt Count (150-450) k/uL Lymphocytes # (1.0-4.8) k/uL Chloride 113 H (98-107) mmol/L Creatinine 1.55 H (0.66-1.25) mg/dL Glucose 46 L* (74-99) mg/dL POC Glucose (mg/dL) 58 L 208 H (75-99) mg/dL Assessment and Plan Assessment: Bilateral pneumonia, right more than the left, possibly aspiration, possibly hospital-acquired with early sepsis, present on admission Small bilateral pleural effusion Hypothermia, present on admission secondary to sepsis Change in mental status, metabolic encephalopathy, acute on chronic Mental handicap history Mild pancytopenia of undetermined origin Increased creatinine with possible chronic kidney disease stage III History of recent left leg cellulitis History of recent acute hypoxic respiratory failure secondary to congestive heart failure acute exacerbation, acute on chronic systolic function, as well as aspiration pneumonia Diabetes mellitus type 2 Hypertension Hyperlipidemia history of myocardial infarction History of anti-mitochondrial antibody positive recently History of bladder tumor history of coronary artery disease/stent History of cataracts Remote history of nicotine dependence Full code Recommendations and discussion: Recommend to continue current medications, management, and symptomatic treatmen t. Will continue to monitor closely. Nephrology is following closely. Patient's blood sugars continue to be uncontrolled with hypo-and hyperglycemia and will continue to be monitored closely. Case management and social work are following as they are working on permanent placement at a long-term care facility at [facility]. [facility] will not be able to accept the patient at this time due to his advanced medical needs as they are not licensed nor trained to handle these needs. Talked with patient's guardian [place] (brother) and they are refusing hospice or palliative care at this time and would like him to go to a long-term facility. Due to multiple complex medi reji issues, prognosis is extremely guarded and poor. Further recommendations to follow. Possible discharge in 24-48 hours once authorization has been obtained.
[2019-06-20 17:10] LABS: Glucose,Whole Blood 201 mg/dL (75-99)
[2019-06-20 20:05] LABS: Glucose,Whole Blood 174 mg/dL (75-99)
--- NOTE | 2019-06-20 20:11 | P.PN ---
Subjective Progress Note Date: 06/20/19 This is a 79-year-old male who resides at [facility] with the legal guardian which is his brother. 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 Patient had a recent ERCP and stenting at [facility] with findings of chronic pancreatitis and pseudocyst biliary stricture. 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 There is very minimal portal inflammation with mild periportal fibrosis. It was thought that the alkaline phosphatase most likely secondary to vascular or cardiac compromise rather than biliary cause. Patient also has underlying history of bladder cancer with chronic Romero catheter, diabetes mellitus type 2, intellectual delay. On previous admission to this, patient was found to have Klebsiella oxytoca bacteremia and positive urinary tract infection. He was transferred to [facility] and most likely completed course of antibiotics for this. Klebsiella oxytoca sepsis susceptible to ceftriaxone. In the recent past, patient has been treated at the intermediate for cellulitis of the left lower extremity with Bactrim and this was improving. He now presents with some increasing weakness, increasing shortness of breath and there were concerns pneumonia. He has abnormal chest x-ray and because of his history of a consult was requested. If this time the patient is sitting upright eating his lunch without great difficulties but does have a moist cough at times. He is doing much discomforts. He however is incontinent of stool. Nursing is concerned about rash. 06/14/2019 the patient is feeling somewhat better today. Sitting upright having his breathing treatment he is much less short of breath he has much less cough is more comfortable. 06/20/2019 patient is comfortable. The overall care plan has been in process. There was potential discussion about hospice but apparently that has not been going well. He is normally in a intermediate and with his increased medical illness it appears that he may not be a candidate to be admitted to that facility. Consequently transitioning to [facility] or different setting is being evaluated. Objective - Vital Signs Vital signs: Vital Signs Temp 97.4 F L 06/20/19 11:45 Pulse 67 06/20/19 19:59 Resp 20 06/20/19 11:45 BP 155/71 06/20/19 11:45 Pulse Ox 94 L 06/20/19 19:47 Intake & Output 06/20/19 06/20/19 06/21/19 06:59 18:59 06:59 Intake Total 690 480 Output Total 500 475 Balance 190 5 Intake: Oral 690 480 Output: Urine 500 475 Uretheral (Romero) 500 Other: Voiding Method Indwelling Catheter Indwelling Catheter - Exam Gen: This is a 79-year-old male. Patient appears thin with muscle wasting to the extremities. He appears to be in no acute distress. HEENT: Head is atraumatic, normocephalic. Pupils equal, round. Sclerae is anicteric. NECK: Supple. No JVD. No lymphadenopathy. No thyromegaly. LUNGS: They're symmetrical bilaterally entry however there are bibasilar crackles and some expiratory wheezes it is noted has a bit of a moist cough. Nursing staff does have him sitting upright he is able to talk without difficulty with his eating HEART: Regular rate and rhythm. Systolic murmur. ABDOMEN: Soft. Bowel sounds are present. No masses. No tenderness. Romero catheter draining akila urine. EXTREMITIES: No pedal edema. Dorsalis pedis +1 bilateral. Mild pretibial edema and erythema slightly worse to the left. No drainage noted. NEUROLOGICAL: Patient is awake, alert and oriented x2 Skin there is concerns to a rash in the perineum. This is markedly improved within the last day. Patient is more comfortable. - Labs CBC & Chem 7: 06/20/19 06:43 06/20/19 06:43 Labs: Abnormal Lab Results - Last 24 Hours (Table) 06/20/19 06/20/19 06/20/19 Range/Units 06:43 06:43 07:16 WBC 3.3 L (3.8-10.6) k/uL RBC 2.20 L (4.30-5.90) m/uL Hgb 7.5 L (13.0-17.5) gm/dL Hct 23.3 L (39.0-53.0) % MCV 106.2 H (80.0-100.0) fL RDW 15.9 H (11.5-15.5) % Plt Count 69 L D (150-450) k/uL Lymphocytes # 0.7 L (1.0-4.8) k/uL Chloride 113 H (98-107) mmol/L Creatinine 1.55 H (0.66-1.25) mg/dL Glucose 46 L* (74-99) mg/dL POC Glucose (mg/dL) 58 L (75-99) mg/dL 06/20/19 06/20/19 Range/Units 11:15 17:08 WBC (3.8-10.6) k/uL RBC (4.30-5.90) m/uL Hgb (13.0-17.5) gm/dL Hct (39.0-53.0) % MCV (80.0-100.0) fL RDW (11.5-15.5) % Plt Count (150-450) k/uL Lymphocytes # (1.0-4.8) k/uL Chloride (98-107) mmol/L Creatinine (0.66-1.25) mg/dL Glucose (74-99) mg/dL POC Glucose (mg/dL) 208 H 201 H (75-99) mg/dL Laboratory Results WBC 3.3 k/uL (3.8-10.6) L 06/20/19 06:43 RBC 2.20 m/uL (4.30-5.90) L 06/20/19 06:43 Hgb 7.5 gm/dL (13.0-17.5) L 06/20/19 06:43 Hct 23.3 % (39.0-53.0) L 06/20/19 06:43 MCV 106.2 fL (80.0-100.0) H 06/20/19 06:43 MCH 34.0 pg (25.0-35.0) 06/20/19 06:43 MCHC 32.0 g/dL (31.0-37.0) 06/20/19 06:43 RDW 15.9 % (11.5-15.5) H 06/20/19 06:43 Plt Count 69 k/uL (150-450) L D 06/20/19 06:43 Neutrophils % 68 % 06/20/19 06:43 Lymphocytes % 22 % 06/20/19 06:43 Monocytes % 4 % 06/20/19 06:43 Eosinophils % 2 % 06/20/19 06:43 Basophils % 1 % 06/20/19 06:43 Neutrophils # 2.3 k/uL (1.3-7.7) 06/20/19 06:43 Lymphocytes # 0.7 k/uL (1.0-4.8) L 06/20/19 06:43 Monocytes # 0.2 k/uL (0-1.0) 06/20/19 06:43 Eosinophils # 0.1 k/uL (0-0.7) 06/20/19 06:43 Basophils # 0.0 k/uL (0-0.2) 06/20/19 06:43 Manual Slide Review Performed 06/12/19 07:38 Hypochromasia Moderate 06/20/19 06:43 Poikilocytosis Slight 06/11/19 12:15 Anisocytosis Slight 06/13/19 08:48 Macrocytosis Moderate 06/20/19 06:43 Sodium 144 mmol/L (137-145) 06/20/19 06:43 Potassium 5.0 mmol/L (3.5-5.1) 06/20/19 06:43 Chloride 113 mmol/L (98-107) H 06/20/19 06:43 Carbon Dioxide 27 mmol/L (22-30) 06/20/19 06:43 Anion Gap 4 mmol/L 06/20/19 06:43 BUN 20 mg/dL (9-20) 06/20/19 06:43 Creatinine 1.55 mg/dL (0.66-1.25) H 06/20/19 06:43 Est GFR (CKD-EPI)AfAm 49 (>60 ml/min/1.73 sqM) 06/20/19 06:43 Est GFR (CKD-EPI)NonAf 43 (>60 ml/min/1.73 sqM) 06/20/19 06:43 Glucose 46 mg/dL (74-99) L* 06/20/19 06:43 POC Glucose (mg/dL) 201 mg/dL (75-99) H 06/20/19 17:08 POC Glu Account Executive Trainee ID Elizabeth Naqvi 06/20/19 17:08 Plasma Lactic Acid Alejandro 1.2 mmol/L (0.7-2.0) 06/12/19 07:38 Calcium 8.4 mg/dL (8.4-10.2) 06/20/19 06:43 Magnesium 1.8 mg/dL (1.6-2.3) 06/17/19 05:57 Iron 17 ug/dL (65-175) L 06/13/19 08:48 TIBC 246 ug/dL (228-460) 06/13/19 08:48 Iron Saturation 6.91 (15.00-50.00) L 06/13/19 08:48 Ferritin 400.3 ng/mL (22.0-322.0) H 06/13/19 08:48 Total Bilirubin 0.4 mg/dL (0.2-1.3) 06/11/19 12:15 AST 23 U/L (17-59) 06/11/19 12:15 ALT 27 U/L (21-72) 06/11/19 12:15 Alkaline Phosphatase 176 U/L (38-126) H 06/11/19 12:15 Creatine Kinase <20 U/L (55-170) L 06/11/19 12:15 NT-Pro-B Natriuret Pep 8510 pg/mL 06/13/19 08:48 Total Protein 5.5 g/dL (6.3-8.2) L 06/11/19 12:15 Albumin 2.6 g/dL (3.5-5.0) L 06/11/19 12:15 TSH 5.810 mIU/L (0.465-4.680) H 06/17/19 05:57 Free T4 1.43 ng/dL (0.78-2.19) 06/17/19 05:57 Cortisol 18 ug/dL 06/12/19 07:38 Urine Color Light Yellow 06/11/19 12:20 Urine Appearance Clear (Clear) 06/11/19 12:20 Urine pH 5.0 (5.0-8.0) 06/11/19 12:20 Ur Specific [place] 1.007 (1.001-1.035) 06/11/19 12:20 Urine Protein Negative (Negative) 06/11/19 12:20 Urine Glucose (UA) Negative (Negative) 06/11/19 12:20 Urine Ketones Negative (Negative) 06/11/19 12:20 Urine Blood Negative (Negative) 06/11/19 12:20 Urine Nitrite Negative (Negative) 06/11/19 12:20 Urine Bilirubin Negative (Negative) 06/11/19 12:20 Urine Urobilinogen <2.0 mg/dL (<2.0) 06/11/19 12:20 Ur Leukocyte Esterase Trace (Negative) H 06/11/19 12:20 Urine RBC 1 /hpf (0-5) 06/11/19 12:20 Urine WBC 4 /hpf (0-5) 06/11/19 12:20 Urine Bacteria Rare /hpf (None) H 06/11/19 12:20 Hyaline Casts 8 /lpf (0-2) H 06/11/19 12:20 Urine Mucus Rare /hpf (None) H 06/11/19 12:20 Influenza Type A RNA Not Detected (Not Detectd) 06/11/19 15:45 Influenza Type B (PCR) Not Detected (Not Detectd) 06/11/19 15:45 Microbiology 06/11/19 13:57 Blood Blood Culture - Final No Growth after 144 hours 06/11/19 20:35 Sputum Gram Stain - Final 06/11/19 20:35 Sputum Sputum Culture - Final Assessment and Plan (1) Hypothermia Current Visit: Yes Status: Acute Code(s): T68.XXXA - HYPOTHERMIA, INITIAL ENCOUNTER SNOMED Code(s): 761628396 (2) Pneumonia Narrative/Plan: 79-year-old male who has a compromised mental status has been having some difficulties with swallowing and maneuvers are utilized to help him eat. Relates his appetite is good but there is concerns for aspiration as etiology of the current worsening bilateral pneumonia. Admission he had hypothermia evidence of pneumonia dehydration and acute renal failure. He is now feeling somewhat better. However there is evidence of pancytopenia and platelets have precipitously dropped since the last admission. With this in the concerns pneumonia we'll alter from Zosyn to meropenem given the patient's hospitalizatio n, concerns to aspiration, concerns to significant toxicity from the piperacillin tazobactam. Also meropenem is being utilize with concerns to resistant gram-negative bacilli and significant toxicity from Zosyn. Cultures are in process. Hypothermia has resolved and he has had this in the past Pulmonary critical care have been consulted. 06/14/2019 the patient is now considerably improved as far as his shortness of breath and wet cough. He is improved aeration in is comfortable. He is eating without difficulties. The rash is now much improved. Antibiotic therapy was altered to meropenem with concerns to gram-negative pneumonia and aspiration as well as the significant worsening thrombocytopenia. This is stabilized today. Overall treatment plan is being finalized. 06/20/2019 the patient is improved on antibiotic therapy with meropenem. His platelets and started to improve and it does appear that he has a clinical improvement of his pneumonia. The care team is working out at discharge plan with her OB hospice, AFC home or extended care is certainly not clear. They're working with her brother to ensure that there is clear line of communication about all of the issues. Meropenem continues for now. Planning at least a 10 day course of therapy. Current Visit: Yes Status: Acute Code(s): J18.9 - PNEUMONIA, UNSPECIFIED ORGANISM SNOMED Code(s): 797678372 (3) ARF (acute renal failure) Current Visit: No Status: Acute Code(s): N17.9 - ACUTE KIDNEY FAILURE, UNSPECIFIED SNOMED Code(s): 37309552
[2019-06-20] MEDS: FLUCONAZOLE 100 MG TAB PO SCH (21:03)
[2019-06-20 21:30] VITALS: RESP 16
[2019-06-21 07:11] LABS: Glucose,Whole Blood 93 mg/dL (75-99)
[2019-06-21] MEDS: INSULIN ASPART (NovoLOG) 100 UNIT/ML VIAL SQ SCH ×4 (07:28→12:28)
[2019-06-21 08:24] VITALS: TEMP 97.5
[2019-06-21] MEDS: ALBUTEROL NEBULIZED 2.5 MG/3 ML INHALATION SCH ×2 (09:14→15:57)
[2019-06-21 10:32] VITALS: BP 182/71; PULSE 62
--- NOTE | 2019-06-21 10:48 | P.PN ---
Subjective Patient is seen in follow-up for acute kidney injury on chronic kidney disease. Patient is chronic kidney disease stage III with baseline creatinine in the range of 1.3-1.5. Renal function is stable. No changes overnight. Oral intake is good. Denies chest pain or shortness of breath. Vital signs are stable. General: The patient appeared well nourished and normally developed. HEENT: Head exam is unremarkable. Neck is without jugular venous distension. LUNGS: Lungs are clear to auscultation and percussion. Breath sounds decreased. HEART: Rate and Rhythm are regular. First and second heart sounds normal. No murmurs, rubs or gallops. ABDOMEN: Abdominal exam reveals normal bowel sounds. Non-tender and non- distended. No evidence of peritonitis. EXTREMITITES: No clubbing, cyanosis, or edema. Objective - Vital Signs Vital signs: Vital Signs Temp 97.5 F L 06/21/19 10:31 Pulse 62 06/21/19 10:31 Resp 16 06/21/19 08:22 BP 182/71 06/21/19 10:31 Pulse Ox 93 L 06/21/19 08:22 Intake & Output 06/20/19 06/21/19 06/21/19 18:59 06:59 18:59 Intake Total 480 80 Output Total 475 Balance 5 80 Intake: IV 80 ns@10 80 Oral 480 Output: Urine 475 Other: Voiding Method Indwelling Catheter Indwelling Catheter # Voids 2 # Bowel Movements 2 - Labs CBC & Chem 7: 06/20/19 06:43 06/20/19 06:43 Labs: Abnormal Lab Results - Last 24 Hours (Table) 06/20/19 06/20/19 06/20/19 Range/Units 11:15 17:08 20:04 POC Glucose (mg/dL) 208 H 201 H 174 H (75-99) mg/dL Assessment and Plan Plan: Assessment: 1. Acute kidney injury mostly prerenal secondary to infection and diuresis. Renal function stable. Creatinine 1.55 today. UA benign. No evidence of hydronephrosis noted on kidney ultrasound. Right kidney noted to be small. 2. Pneumonia with concern for aspiration. s/p antibiotics. 3. Chronic kidney disease stage III secondary to nephrosclerosis with baseline creatinine in the range of 1.3-1.5. 4. Anemia of chronic kidney disease. Iron deficiency noted. Status post 3 doses of IV iron. Maintained on Aranesp. 5. Insulin-dependent diabetes mellitus. 6. Hypertension with chronic kidney disease. 7. Chronic kidney disease mineral bone disease maintained on calcitriol. 8. Hypothermia. Possibly due to infection. TSH only mildly elevated. Better. Plan: Encouraged oral intake. Remains off IV fluids. Avoid nephrotoxins. Discontinued lisinopril due to hyperkalemia. Increase nifedipine to 60 mg once daily.
[2019-06-21 11:08] LABS: Glucose,Whole Blood 181 mg/dL (75-99)
[2019-06-21] MEDS: URSODIOL 300 MG CAP PO SCH ×2 (11:17→11:25)
[2019-06-21] MEDS: CYANOCOBALAMIN 500 MCG TAB PO SCH (11:25)
[2019-06-21] MEDS: FERROUS SULFATE 325 MG TAB PO SCH (11:25)
[2019-06-21] MEDS: LEVOTHYROXINE 50 MCG TAB PO SCH (11:26)
[2019-06-21] MEDS: DIVALPROEX ER 500 MG TAB.ER.24H PO SCH (11:26)
[2019-06-21] MEDS: NIFEdipine XL 30 MG TAB.ER.24 PO SCH (11:26)
[2019-06-21] MEDS: TAMSULOSIN 0.4 MG CAP.ER.24H PO SCH (11:26)
[2019-06-21] MEDS: PANTOPRAZOLE 40 MG TABLET PO SCH (11:26)
[2019-06-21] MEDS: CHOLECALCIFEROL 1,000 UNIT TAB PO SCH (11:26)
[2019-06-21] MEDS: LACTOBACILLUS ACIDOPH & BULGAR 1 EACH PACKET PO SCH (11:27)
[2019-06-21] MEDS: HEPARIN SODIUM,PORCINE 5,000 UNIT/ML 1 ML VIAL SQ SCH (11:27)
[2019-06-21] MEDS: NYSTATIN 100,000 UNIT/GM POWD 15 GM TOPICAL SCH (11:30)
--- NOTE | 2019-06-21 13:56 | P.DS ---
Providers Date of admission: 06/11/19 16:38 Expected date of discharge: 06/21/19 Attending physician: Isis Sloan Consults: 06/11/19 16:36 Consult Physician Routine Consulting Provider: Sona Acharya Consult Reason/Comments: Pneumonia, hypothermia Do you want consulting provider notified?: Already Contacted 06/11/19 17:07 Consult Physician Routine Consulting Provider: Francisco Lott Consult Reason/Comments: pneumonia Do you want consulting provider notified?: Yes 06/12/19 11:39 Consult Physician Routine Consulting Provider: Minh Becker Consult Reason/Comments: CHF Do you want consulting provider notified?: Yes 06/12/19 11:45 Consult Physician Routine Consulting Provider: Blayne Morales Consult Reason/Comments: BASSAM Do you want consulting provider notified?: Yes Primary care physician: Corinna Barrera Hospital Course: Final diagnosis Bilateral pneumonia, right more than the left, possibly aspiration, possibly hospital-acquired with early sepsis, present on admission Small bilateral pleural effusion Hypothermia, present on admission secondary to sepsis Change in mental status, metabolic encephalopathy, acute on chronic Mental handicap history Mild pancytopenia of undetermined origin Increased creatinine with possible chronic kidney disease stage III History of recent left leg cellulitis History of recent acute hypoxic respiratory failure secondary to congestive heart failure acute exacerbation, acute on chronic systolic function, as well as aspiration pneumonia Diabetes mellitus type 2 Hypertension Hyperlipidemia history of myocardial infarction History of anti-mitochondrial antibody positive recently History of bladder tumor history of coronary artery disease/stent History of cataracts Remote history of nicotine dependence Full code Discharge disposition Patient is being discharged in a stable condition with guarded prognosis to [facility]. Patient will follow-up with Guy Yusuf in June as scheduled. Patient will follow-up with primary care provider upon discharge. Per nephrology recommendations patient is continue with Aranesp subcutaneous injection 1 time per week. Patient will follow-up with nephrology in the outpatient setting upon discharge. Total time taken is 35 minutes. History of present illness This is a 79-year-old male who was recently admitted with bilateral pneumonia with possible aspiration and also having features of a urinary tract infection was being closely monitored. Patient was found to be hypothermic requiring the bear hugger for warming multiple times during hospitalization. Patient's blood sugars continue to fluctuate up and down and adjustments have been made to his insulin regimen. Patient is to continue Accu-Cheks before meals at bedtime and coverage with sliding scale along with additional insulin with meals. Patient continues to have low blood sugars in the morning and needs to be closely monitored. Patient is to continue on a dysphagia 3 chopped diet with nectar thickened liquids and maintain aspiration precautions. Patient has been tolerating this diet well. Currently patient denies any chest pain, shortness of breath, or palpitations at this time. Patient is afebrile at this time. Patient denies any nausea or vomiting and is tolerating diet. Patient to continue working with PT/OT for strength and mobility. Patient was a resident at [facility] home but due to multiple complex medical issues and an increase in his care they are unable to provide such services and patient will be going to [facility] today. Currently patient's condition is stable with much improvement and is ready for discharge. Guarded prognosis. His brother [place] who is also his legal guardian will be transporting to [facility]. On exam vital signs are stable. Temp is 97.5F, pulse is 62, respirations are 16, blood pressure is 182/71, oxygen saturation is 93% on 2 L. Cardio S1 and S2 are muffled. Respiratory system shows diminished breath sounds at the bases no wheezing noted. Abdomen is soft and nontender. Nervous system shows no focal deficits. Please refer to medication reconciliation sheet for a list of medications. Patient Condition at Discharge: Fair Plan - Discharge Summary New Discharge Prescriptions: New Darbepoetin Robby [Aranesp] 40 mcg SQ Q7D syringe Fluconazole [Diflucan] 100 mg PO DAILY@2100 tab INSULIN ASPART (NovoLOG) [NovoLOG (formulary)] 4 unit SQ AC-TID vial INSULIN ASPART (NovoLOG) [NovoLOG (formulary)] 0 unit SQ ACHS vial NIFEdipine XL [Procardia XL] 60 mg PO DAILY@0800 tab.er.24 Acetaminophen Tab [Tylenol] 650 mg PO Q4HR PRN tab PRN Reason: Fever And/ Or Pain Continue Cholecalciferol [Vitamin D3 (25 Mcg = 1000 Iu)] 2,000 unit PO DAILY@0800 Calcitriol [Rocaltrol] 0.25 mcg PO Q48H Tamsulosin [Flomax] 0.4 mg PO DAILY@0800 Ferrous Sulfate [Iron (65 MG Elemental)] 325 mg PO BID@0800,2100 Sennosides [Senna] 17.2 mg PO HS PRN PRN Reason: Constipation Divalproex Sodium [Divalproex Sodium ER] 1,000 mg PO DAILY@0800 Polyethylene Glycol 3350 [Miralax] 17 gm PO DAILY PRN PRN Reason: Constipation Cyanocobalamin (Vitamin B-12) [Vitamin B-12] 1,000 mcg PO DAILY Ursodiol 300 mg PO AC-TID Pantoprazole [Protonix] 40 mg PO DAILY@0730 L.acidoph,Paracasei, B.lactis [Probiotic] 1 cap PO DAILY@0800 Glucerna Shake 1 can PO BID@09,2099 Albuterol Sulfate [Proair Hfa] 2 puff INHALATION RT-TID PRN PRN Reason: Shortness Of Breath Levothyroxine Sodium [Synthroid] 50 mcg PO DAILY@0830 Nystatin 100,000 Unit/gm Powd [Mycostatin Powder] 1 applic TOPICAL BID@ Discontinued Insulin Aspart [NovoLOG Flexpen] 5 units SQ PC-TID NIFEdipine XL [Procardia Xl] 30 mg PO DAILY@08 Ciprofloxacin HCl [Cipro] 500 mg PO BID@ Furosemide [Lasix] 40 mg PO DAILY@08 Lisinopril [Zestril] 5 mg PO DAILY@0800 Discharge Medication List Calcitriol [Rocaltrol] 0.25 mcg PO Q48H 12/29/16 [History] Cholecalciferol [Vitamin D3 (25 Mcg = 1000 Iu)] 2,000 unit PO DAILY@0800 12/29/16 [History] Ferrous Sulfate [Iron (65 MG Elemental)] 325 mg PO BID@0800,2100 12/29/16 [History] Tamsulosin [Flomax] 0.4 mg PO DAILY@0800 12/29/16 [History] Divalproex Sodium [Divalproex Sodium ER] 1,000 mg PO DAILY@0800 03/19/19 [History] Polyethylene Glycol 3350 [Miralax] 17 gm PO DAILY PRN 03/19/19 [History] Sennosides [Senna] 17.2 mg PO HS PRN 03/19/19 [History] Cyanocobalamin (Vitamin B-12) [Vitamin B-12] 1,000 mcg PO DAILY 04/03/19 [History] Albuterol Sulfate [Proair Hfa] 2 puff INHALATION RT-TID PRN 05/28/19 [History] Glucerna Shake 1 can PO BID@0900,2100 05/28/19 [History] L.acidoph,Paracasei, B.lactis [Probiotic] 1 cap PO DAILY@0800 05/28/19 [History] Pantoprazole [Protonix] 40 mg PO DAILY@0730 05/28/19 [History] Ursodiol 300 mg PO AC-TID 05/28/19 [History] Levothyroxine Sodium [Synthroid] 50 mcg PO DAILY@0830 06/11/19 [History] Nystatin 100,000 Unit/gm Powd [Mycostatin Powder] 1 applic TOPICAL BID@0800,2000 06/11/19 [History] Acetaminophen Tab [Tylenol] 650 mg PO Q4HR PRN tab 06/21/19 [Rx] Darbepoetin Robby [Aranesp] 40 mcg SQ Q7D syringe 06/21/19 [Rx] Fluconazole [Diflucan] 100 mg PO DAILY@2100 tab 06/21/19 [Rx] INSULIN ASPART (NovoLOG) [NovoLOG (formulary)] 0 unit SQ ACHS vial 06/21/19 [Rx] INSULIN ASPART (NovoLOG) [NovoLOG (formulary)] 4 unit SQ AC-TID vial 06/21/19 [Rx] NIFEdipine XL [Procardia XL] 60 mg PO DAILY@0800 tab.er.24 06/21/19 [Rx] Follow up Appointment(s)/Referral(s): Corinna Barrera III, MD [Primary Care Provider] - 1-2 days [facility], [NON-STAFF] - 1 Week Ambulatory/Diagnostic Orders: Basic Metabolic Panel [LAB.AMB] Time Frame: 3 Days, Location: None Selected Complete Blood Count w/diff [LAB.AMB] Time Frame: 3 Days, Location: None Selected Activity/Diet/Wound Care/Special Instructions: Patient is going to [facility] Activity as tolerated Continue current diet of dysphagia 3, chopped, nectar thickened liquids Continue monitoring blood sugar before meals at bedtime Repeat labs in 3 days Discharge Disposition: TRANSFER TO SNF/ECF
--- NOTE | 2019-06-21 18:20 | P.PN ---
Subjective Progress Note Date: 06/21/19 This is a 79-year-old male who resides at [facility] with the legal guardian which is his brother. 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 Patient had a recent ERCP and stenting at [facility] with findings of chronic pancreatitis and pseudocyst biliary stricture. 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 There is very minimal portal inflammation with mild periportal fibrosis. It was thought that the alkaline phosphatase most likely secondary to vascular or cardiac compromise rather than biliary cause. Patient also has underlying history of bladder cancer with chronic Romero catheter, diabetes mellitus type 2, intellectual delay. On previous admission to this, patient was found to have Klebsiella oxytoca bacteremia and positive urinary tract infection. He was transferred to [facility] and most likely completed course of antibiotics for this. Klebsiella oxytoca sepsis susceptible to ceftriaxone. In the recent past, patient has been treated at the [facility] for cellulitis of the left lower extremity with Bactrim and this was improving. He now presents with some increasing weakness, increasing shortness of breath and there were concerns pneumonia. He has abnormal chest x-ray and because of his history of a consult was requested. If this time the patient is sitting upright eating his lunch without great difficulties but does have a moist cough at times. He is doing much discomforts. He however is incontinent of stool. Nursing is concerned about rash. 06/14/2019 the patient is feeling somewhat better today. Sitting upright having his breathing treatment he is much less short of breath he has much less cough is more comfortable. 06/20/2019 patient is comfortable. The overall care plan has been in process. There was potential discussion about hospice but apparently that has not been going well. He is normally in a [facility] and with his increased medical illness it appears that he may not be a candidate to be admitted to that facility. Consequently transitioning to [facility] or different setting is being evaluated. 06/21/2019 the patient is more comfortable. He be transferred to the extended care facility today. He has completed his course of intravenous antibiotic therapy for his aspiration pneumonia. Antibiotic Cipro completed for 24 hours and he is having no recurrent fever chills rigors or sweats. His pulmonary status is stable. Objective - Vital Signs Vital signs: Vital Signs Temp 97.5 F L 06/21/19 10:31 Pulse 62 06/21/19 10:31 Resp 16 06/21/19 08:22 BP 182/71 06/21/19 10:31 Pulse Ox 93 L 06/21/19 08:22 Intake & Output 06/20/19 06/21/19 06/21/19 18:59 06:59 18:59 Intake Total 480 80 480 Output Total 475 Balance 5 80 480 Intake: IV 80 ns@10 80 Oral 480 480 Output: Urine 475 Other: Voiding Method Indwelling Catheter Indwelling Catheter Indwelling Catheter # Voids 2 # Bowel Movements 2 1 - Exam Gen: This is a 79-year-old male. Patient appears thin with muscle wasting to the extremities. He appears to be in no acute distress. HEENT: Head is atraumatic, normocephalic. Pupils equal, round. Sclerae is anicteric. NECK: Supple. No JVD. No lymphadenopathy. No thyromegaly. LUNGS: They're symmetrical bilaterally entry however there are bibasilar crackles and some expiratory wheezes it is noted has a bit of a moist cough. Nursing staff does have him sitting upright he is able to talk without difficulty with his eating HEART: Regular rate and rhythm. Systolic murmur. ABDOMEN: Soft. Bowel sounds are present. No masses. No tenderness. Romero catheter draining akila urine. EXTREMITIES: No pedal edema. Dorsalis pedis +1 bilateral. Mild pretibial edema and erythema slightly worse to the left. No drainage noted. NEUROLOGICAL: Patient is awake, alert and oriented x2 Skin there is concerns to a rash in the perineum. This is markedly improved within the last day. Patient is more comfortable. - Labs CBC & Chem 7: 06/20/19 06:43 06/20/19 06:43 Labs: Abnormal Lab Results - Last 24 Hours (Table) 06/20/19 06/21/19 Range/Units 20:04 11:06 POC Glucose (mg/dL) 174 H 181 H (75-99) mg/dL Laboratory Results WBC 3.3 k/uL (3.8-10.6) L 06/20/19 06:43 RBC 2.20 m/uL (4.30-5.90) L 06/20/19 06:43 Hgb 7.5 gm/dL (13.0-17.5) L 06/20/19 06:43 Hct 23.3 % (39.0-53.0) L 06/20/19 06:43 MCV 106.2 fL (80.0-100.0) H 06/20/19 06:43 MCH 34.0 pg (25.0-35.0) 06/20/19 06:43 MCHC 32.0 g/dL (31.0-37.0) 06/20/19 06:43 RDW 15.9 % (11.5-15.5) H 06/20/19 06:43 Plt Count 69 k/uL (150-450) L D 06/20/19 06:43 Neutrophils % 68 % 06/20/19 06:43 Lymphocytes % 22 % 06/20/19 06:43 Monocytes % 4 % 06/20/19 06:43 Eosinophils % 2 % 06/20/19 06:43 Basophils % 1 % 06/20/19 06:43 Neutrophils # 2.3 k/uL (1.3-7.7) 06/20/19 06:43 Lymphocytes # 0.7 k/uL (1.0-4.8) L 06/20/19 06:43 Monocytes # 0.2 k/uL (0-1.0) 06/20/19 06:43 Eosinophils # 0.1 k/uL (0-0.7) 06/20/19 06:43 Basophils # 0.0 k/uL (0-0.2) 06/20/19 06:43 Manual Slide Review Performed 06/12/19 07:38 Hypochromasia Moderate 06/20/19 06:43 Poikilocytosis Slight 06/11/19 12:15 Anisocytosis Slight 06/13/19 08:48 Macrocytosis Moderate 06/20/19 06:43 Sodium 144 mmol/L (137-145) 06/20/19 06:43 Potassium 5.0 mmol/L (3.5-5.1) 06/20/19 06:43 Chloride 113 mmol/L (98-107) H 06/20/19 06:43 Carbon Dioxide 27 mmol/L (22-30) 06/20/19 06:43 Anion Gap 4 mmol/L 06/20/19 06:43 BUN 20 mg/dL (9-20) 06/20/19 06:43 Creatinine 1.55 mg/dL (0.66-1.25) H 06/20/19 06:43 Est GFR (CKD-EPI)AfAm 49 (>60 ml/min/1.73 sqM) 06/20/19 06:43 Est GFR (CKD-EPI)NonAf 43 (>60 ml/min/1.73 sqM) 06/20/19 06:43 Glucose 46 mg/dL (74-99) L* 06/20/19 06:43 POC Glucose (mg/dL) 181 mg/dL (75-99) H 06/21/19 11:06 POC Glu Instrument Lens Inspector ID Elizabeth Naqvi 06/21/19 11:06 Plasma Lactic Acid Alejandro 1.2 mmol/L (0.7-2.0) 06/12/19 07:38 Calcium 8.4 mg/dL (8.4-10.2) 06/20/19 06:43 Magnesium 1.8 mg/dL (1.6-2.3) 06/17/19 05:57 Iron 17 ug/dL (65-175) L 06/13/19 08:48 TIBC 246 ug/dL (228-460) 06/13/19 08:48 Iron Saturation 6.91 (15.00-50.00) L 06/13/19 08:48 Ferritin 400.3 ng/mL (22.0-322.0) H 06/13/19 08:48 Total Bilirubin 0.4 mg/dL (0.2-1.3) 06/11/19 12:15 AST 23 U/L (17-59) 06/11/19 12:15 ALT 27 U/L (21-72) 06/11/19 12:15 Alkaline Phosphatase 176 U/L (38-126) H 06/11/19 12:15 Creatine Kinase <20 U/L (55-170) L 06/11/19 12:15 NT-Pro-B Natriuret Pep 8510 pg/mL 06/13/19 08:48 Total Protein 5.5 g/dL (6.3-8.2) L 06/11/19 12:15 Albumin 2.6 g/dL (3.5-5.0) L 06/11/19 12:15 TSH 5.810 mIU/L (0.465-4.680) H 06/17/19 05:57 Free T4 1.43 ng/dL (0.78-2.19) 06/17/19 05:57 Cortisol 18 ug/dL 06/12/19 07:38 Urine Color Light Yellow 06/11/19 12:20 Urine Appearance Clear (Clear) 06/11/19 12:20 Urine pH 5.0 (5.0-8.0) 06/11/19 12:20 Ur Specific [place] 1.007 (1.001-1.035) 06/11/19 12:20 Urine Protein Negative (Negative) 06/11/19 12:20 Urine Glucose (UA) Negative (Negative) 06/11/19 12:20 Urine Ketones Negative (Negative) 06/11/19 12:20 Urine Blood Negative (Negative) 06/11/19 12:20 Urine Nitrite Negative (Negative) 06/11/19 12:20 Urine Bilirubin Negative (Negative) 06/11/19 12:20 Urine Urobilinogen <2.0 mg/dL (<2.0) 06/11/19 12:20 Ur Leukocyte Esterase Trace (Negative) H 06/11/19 12:20 Urine RBC 1 /hpf (0-5) 06/11/19 12:20 Urine WBC 4 /hpf (0-5) 06/11/19 12:20 Urine Bacteria Rare /hpf (None) H 06/11/19 12:20 Hyaline Casts 8 /lpf (0-2) H 06/11/19 12:20 Urine Mucus Rare /hpf (None) H 06/11/19 12:20 Influenza Type A RNA Not Detected (Not Detectd) 06/11/19 15:45 Influenza Type B (PCR) Not Detected (Not Detectd) 06/11/19 15:45 Microbiology 06/11/19 13:57 Blood Blood Culture - Final No Growth after 144 hours 06/11/19 20:35 Sputum Gram Stain - Final 06/11/19 20:35 Sputum Sputum Culture - Final Assessment and Plan (1) Hypothermia Status: Acute Code(s): T68.XXXA - HYPOTHERMIA, INITIAL ENCOUNTER SNOMED Code(s): 184763262 (2) Pneumonia Narrative/Plan: 79-year-old male who has a compromised mental status has been having some difficulties with swallowing and maneuvers are utilized to help him eat. Relates his appetite is good but there is concerns for aspiration as etiology of the current worsening bilateral pneumonia. Admission he had hypothermia evidence of pneumonia dehydration and acute renal failure. He is now feeling somewhat better. However there is evidence of pancytopenia and platelets have precipitously dropped since the last admission. With this in the concerns pneumonia we'll alter from Zosyn to meropenem given the patient's hospitalization, concerns to aspiration, concerns to significant toxicity from the piperacillin tazobactam. Also meropenem is being utilize with concerns to resistant gram-negative bacilli and significant toxicity from Zosyn. Cultures are in process. Hypothermia has resolved and he has had this in the past Pulmonary critical care have been consulted. 06/14/2019 the patient is now considerably improved as far as his shortness of breath and wet cough. He is improved aeration in is comfortable. He is eating without difficulties. The rash is now much improved. Antibiotic therapy was altered to meropenem with concerns to gram-negative pneumonia and aspiration as well as the significant worsening thrombocytopenia. This is stabilized today. Overall treatment plan is being finalized. 06/20/2019 the patient is improved on antibiotic therapy with meropenem. His platelets and started to improve and it does appear that he has a clinical improvement of his pneumonia. The care team is working out at discharge plan with her OB hospice, [facility] home or extended care is certainly not clear. They're working with her brother to ensure that there is clear line of communication about all of the issues. Meropenem continues for now. Planning a 10 day course of therapy. 06/21/2019 the patient remains improved. He has no fever. His pulmonary status is improved. He has no complaints, is eating well and drinking thicken fluids without difficulties. As noted on the exam is respirations have improved and his chest exam is improved. He has now completed his course of intravenous antibiotic therapy with meropenem for his aspiration pneumonia. He is without fever with antibiotics being done now for the last day. He is ready for transfer to the extended care facility where he receive ongoing care he'll longer can be cared for in the fpc due to his complex medical issues. Status: Acute Code(s): J18.9 - PNEUMONIA, UNSPECIFIED ORGANISM SNOMED Code(s): 025186307 (3) ARF (acute renal failure) Status: Acute Code(s): N17.9 - ACUTE KIDNEY FAILURE, UNSPECIFIED SNOMED Code(s): 76818872
== END 2019-06-21 15:15 | DRG 871 ==
LOC: EC 11:54 → 3NMEDONC 16:38
PROVIDERS: ADMIT Hospitalist; ATTEND Hospitalist
DX: A41.9 Sepsis, unspecified organism (principal); G93.41 Metabolic encephalopathy; J15.6 Pneumonia due to other Gram-negative bacteria; J69.0 Pneumonitis due to inhalation of food and vomit; J96.01 Acute respiratory failure with hypoxia; D61.818 Other pancytopenia; I13.0 Hypertensive heart and chronic kidney disease with heart failure and stage 1 through stage 4 chronic kidney disease, or unspecified chronic kidney disease; I50.22 Chronic systolic (congestive) heart failure; N17.9 Acute kidney failure, unspecified; E44.1 Mild protein-calorie malnutrition; D63.1 Anemia in chronic kidney disease; E11.22 Type 2 diabetes mellitus with diabetic chronic kidney disease; E11.51 Type 2 diabetes mellitus with diabetic peripheral angiopathy without gangrene; E11.649 Type 2 diabetes mellitus with hypoglycemia without coma; E61.1 Iron deficiency; E78.5 Hyperlipidemia, unspecified; E86.0 Dehydration; E87.5 Hyperkalemia; E87.6 Hypokalemia; I25.10 Atherosclerotic heart disease of native coronary artery without angina pectoris; I25.2 Old myocardial infarction; I25.5 Ischemic cardiomyopathy; I27.20 Pulmonary hypertension, unspecified; N25.0 Renal osteodystrophy; N18.3 Chronic kidney disease, stage 3 (moderate); R13.10 Dysphagia, unspecified; Z79.4 Long term (current) use of insulin; Z79.890 Hormone replacement therapy; Z79.899 Other long term (current) drug therapy; Z82.5 Family history of asthma and other chronic lower respiratory diseases; Z85.51 Personal history of malignant neoplasm of bladder; Z87.891 Personal history of nicotine dependence; Z95.5 Presence of coronary angioplasty implant and graft; Z68.20 Body mass index [BMI] 20.0-20.9, adult
CPT/HCPCS: 36415; 71045; 71046; 76770; 80048; 80053; 81001; 82533; 82550; 82728; 82947; 83540; 83550; 83605; 83735; 83880; 84132; 84439; 84443; 85025; 87040; 87070; 87205; 87502; 93005; 94640; 94644; 94760; 96374; 99285

== ENCOUNTER 2019-06-27 04:13 | Inpatient (IN) | payer MEDICARE, OTHER ==
[2019-06-27] MEDS ORDERED: NALOXONE 0.4 MG/ML 1 ML VIAL IV PRN (04:25)
[2019-06-27] MEDS ORDERED: ACETAMINOPHEN SUPPOSITORY 650 MG SUPP RECTAL PRN (04:25)
[2019-06-27] MEDS ORDERED: MORPHINE SULFATE 2 MG/ML SYRINGE IV PRN (04:25)
[2019-06-27] MEDS ORDERED: SODIUM CHLORIDE 0.9% 1,000 ML IV SCH (04:30)
--- NOTE | 2019-06-27 04:40 | ED ---
GI Bleed HPI - General Stated complaint: GI Bleed Time Seen by Provider: 06/27/19 04:14 Limitations: altered mental status (Patient unable to give history, is intubated.) - History of Present Illness Initial comments: This patient is 79-year-old man who is transferred here from [facility] to have ICU admission. It is noted that the patient had been admitted here on June 11 for us per Brandt failure and suspected pneumonia. He had been an inpatient here and following discharge had gone to jail. The transfer paperwork from the other facilities incomplete but reportedly the patient had been discharged to jail to have continuing care. From the jail the patient developed vomiting of coffee-ground material, was found to be hypotensive, and had low pulse oximetry numbers. Vital signs before leaving the jail are reported to be a pulse of 47, blood pressure 75/48, respiratory rate 16, pulse oximetry reading 72%, and the patient's temperature reportedly too low to register. Temperature subsequent only found to be 85 at the other facility. Workup at the other facility included CBC which found hemoglobin of 6.9. The patient was being given transfusion. They reportedly had placed the patient on BiPAP to increase his oxygen saturations and he then had an episode of coffee-ground emesis and they suspect that he had aspiration. The patient was intubated at the other facility. The patient did reportedly received 2 units of packed red blood cells. The patient had a central line placed and arrives here on IV Protonix, IV pressor or, sedation, and IV fentanyl. Appears that the other labs have not accompanied the patient's transfer work, and being repeated here. It is reported that the patient's brother had wished that patient have all resuscitative measures but not defibrillation, though there is accompanying paperwork from jail which raises the question that the patient may have at some point express wishes for no code complaint: coffee ground emesis -: days(s) - Related Data Home Medications Medication Instructions Recorded Confirmed Calcitriol [Rocaltrol] 0.25 mcg PO Q48H 12/29/16 06/27/19 Cholecalciferol [Vitamin D3 (25 2,000 unit PO DAILY@0800 12/29/16 06/27/19 Mcg = 1000 Iu)] Ferrous Sulfate [Iron (65 MG 325 mg PO DAILY 12/29/16 06/27/19 Elemental)] Tamsulosin [Flomax] 0.4 mg PO DAILY 12/29/16 06/27/19 Divalproex Sodium [Divalproex 1,000 mg PO DAILY 03/19/19 06/27/19 Sodium ER] Polyethylene Glycol 3350 [Miralax] 17 gm PO DAILY PRN 03/19/19 06/27/19 Sennosides [Senna] 17.2 mg PO HS 03/19/19 06/27/19 Albuterol Sulfate [Proair Hfa] 2 puff INHALATION RT-TID@,,05/28/19 06/27/19 L.acidoph,Paracasei, B.lactis 1 cap PO DAILY 05/28/19 06/27/19 [Probiotic] Pantoprazole [Protonix] 40 mg PO DAILY 05/28/19 06/27/19 Ursodiol 300 mg PO AC-TID 05/28/19 06/27/19 Levothyroxine Sodium [Synthroid] 50 mcg PO DAILY@0600 06/11/19 06/27/19 Darbepoetin Robby [Aranesp] 40 mcg SQ WE 06/27/19 06/27/19 Fluconazole [Diflucan] 100 mg PO HS 06/27/19 06/27/19 Insulin Aspart [NovoLOG Flexpen] 2 units SQ HS 06/27/19 06/27/19 Insulin Aspart [NovoLOG Flexpen] 4 unit SQ AC-TID 06/27/19 06/27/19 Previous Rx's Medication Instructions Recorded Acetaminophen Tab [Tylenol] 650 mg PO Q4HR PRN tab 06/21/19 NIFEdipine XL [Procardia XL] 60 mg PO DAILY@0800 tab.er.24 06/21/19 Allergies Allergy/AdvReac Type Severity Reaction Status Date / Time lithium Allergy Unknown Verified 06/27/19 07:55 Review of Systems ROS Statement: Those systems with pertinent positive or pertinent negative responses have been documented in the HPI. ROS Other: All systems not noted in ROS Statement are negative. Limitations: ROS unobtainable due to patients medical condition (No history available as patient is intubated) Past Medical History Past Medical History: Cancer, Diabetes Mellitus, Hyperlipidemia, Hypertension, Myocardial Infarction (SC) Additional Past Medical History / Comment(s): Mental handicap-approx capacity at age 9.,bladder Ca approx 2013,elevated potassium Last Myocardial Infarction Date:: 2009 History of Any Multi-Drug Resistant Organisms: None Reported Past Surgical History: Heart Catheterization With Stent Additional Past Surgical History / Comment(s): bladder tumors removed; Cataract R eye, stent place in pancreatic duct Past Anesthesia/Blood Transfusion Reactions: No Reported Reaction Date of Last Stent Placement:: 2009 Past Psychological History: No Psychological Hx Reported Additional Psychological History / Comment(s): mentally handicapped Smoking Status: Never smoker Past Alcohol Use History: None Reported Additional Past Alcohol Use History / Comment(s): quit smoking 2009,1ppd Past Drug Use History: None Reported - Past Family History Father Family Medical History: Cancer Additional Family Medical History / Comment(s): lung Mother Family Medical History: COPD Additional Family Medical History / Comment(s): bowel surgeries Brother(s) Family Medical History: Diabetes Mellitus, Hyperlipidemia Additional Family Medical History / Comment(s): Dr Menon is his PCP & [facility] Sister(s) Family Medical History: Cancer Additional Family Medical History / Comment(s): Lung CA with part of her lung r emoved General Exam General appearance: other (Patient is sedated, unresponsive, and intubated) Head exam: Present: atraumatic, normocephalic, normal inspection Eye exam: Present: PERRL, other (Pupils approximately 3 mm and slowly reactive.). Absent: scleral icterus, conjunctival injection, periorbital swell ing, periorbital tenderness Pupils: Present: miosis ENT exam: Present: other (There is an orotracheal tube secured in place with bite block.) Neck exam: Present: normal inspection, other. Absent: tenderness Respiratory exam: Present: rhonchi (Evident deformity or step-off.), other (The breath sounds on the ventilator reveal scattered rhonchi.). Absent: wheezes, rales, stridor Cardiovascular Exam: Present: bradycardia, normal heart sounds. Absent: systolic murmur, diastolic murmur, rubs, gallop GI/Abdominal exam: Present: soft. Absent: distended, tenderness, guarding, rebound, mass exam: Present: other (There is a Romero catheter present with clear yellow urine draining.) Extremities exam: Present: normal inspection, normal capillary refill Neurological exam: Present: altered (Patient is sedated and is not responsive.) Skin exam: Present: warm, dry, intact, normal color. Absent: rash Course Vital Signs 06/27/19 06/27/19 06/27/19 04:16 04:21 04:30 Temperature Pulse Rate 60 59 L 54 L Respiratory 20 22 19 Rate Blood Pressure 82/49 101/53 101/53 O2 Sat by Pulse 99 98 98 Oximetry 06/27/19 06/27/19 06/27/19 04:40 04:50 04:58 Temperature 94.6 F L 87.3 F L Pulse Rate 55 L 60 63 Respiratory 25 H 23 22 Rate Blood Pressure 74/60 82/49 123/54 O2 Sat by Pulse 99 99 100 Oximetry 06/27/19 06/27/19 06/27/19 05:00 05:10 05:20 Temperature 95.2 F L 95.3 F L Pulse Rate 63 61 60 Respiratory 24 27 H 31 H Rate Blood Pressure 123/54 122/56 130/67 O2 Sat by Pulse 99 99 98 Oximetry 06/27/19 06/27/19 06/27/19 05:30 05:40 05:50 Temperature Pulse Rate 60 62 65 Respiratory 18 21 24 Rate Blood Pressure 130/67 125/65 127/59 O2 Sat by Pulse 99 99 99 Oximetry 06/27/19 06/27/19 06/27/19 06:00 06:10 06:20 Temperature 96.6 F L 96.8 F L 96.8 F L Pulse Rate 62 62 64 Respiratory 21 25 H 26 H Rate Blood Pressure 127/59 126/59 124/58 O2 Sat by Pulse 99 100 100 Oximetry 06/27/19 06/27/19 06/27/19 06:30 07:15 07:30 Temperature 96.8 F L 96.3 F L Pulse Rate 63 64 67 Respiratory 25 H 27 H 12 Rate Blood Pressure 124/58 111/55 71/29 O2 Sat by Pulse 100 98 94 L Oximetry - Reevaluation(s) Reevaluation #1: 06/27/19 05:40 The case is discussed with unemployment examiner on-call, Dr. Menon, for transfer to the ICU. Medical Decision Making - Medical Decision Making Patient is 79-year-old man transferred here from [facility]. I did speak with the patient's brother and legal guardian, India Perkins, who states that family has discussed this situation and they would like the patient to be full code at this time. I did express that he the patient is critically ill with extremely guarded prognosis. - Lab Data Result diagrams: 06/28/19 05:00 06/28/19 05:00 - EKG Data -: EKG Interpreted by Me EKG shows normal: sinus rhythm (With premature complex.), axis (Normal), intervals (Normal), QRS complexes (Low-voltage QRS complex. Old septal infarct.) Rate: normal (Rate approximate 62 bpm) Critical Care Time Critical Care Time: Yes (35 minutes) Disposition Clinical Impression: GI bleed, Pneumonia, Anemia, Neutropenia Disposition: ADMITTED IP TO THIS [facility] Condition: Critical
[2019-06-27] MEDS ORDERED: PROPOFOL 1,000 MG in EMPTY BAG 1 BAG IV ONE (04:44)
[2019-06-27] MEDS ORDERED: MIDAZOLAM HCL 50 MG in SODIUM CHLORIDE 0.9% 40 ML IV SCH (04:45)
[2019-06-27] MEDS: NOREPINEPHRINE 32 MG in SODIUM CHLORIDE 0.9% 218 ML IV SCH ×2 (04:54→16:07)
[2019-06-27] MEDS ORDERED: fentaNYL (PF) 1,000 MCG in SODIUM CHLORIDE 0.9% 80 ML IV SCH (05:00)
[2019-06-27 05:02] LABS: ABG Base Excess -5.2 mmol/L; ABG HCO3 22 mmol/L (21-25); ABG PCO2 46 mmHg (35-45); ABG PH 7.28 (7.35-7.45); ABG PO2 103 mmHg (83-108); ABG TCO2 23 mmol/L (19-24); Allen Test Performed? Yes
[2019-06-27 06:16] LABS: Anisocytosis Slight; HCT 26.6 % (39.0-53.0); HGB 8.9 gm/dL (13.0-17.5); Hypochromasia Slight; MCH 33.4 pg (25.0-35.0); MCHC 33.5 g/dL (31.0-37.0); Macrocytosis Moderate; Mean Platelet Volume 7.5; Poikilocytosis Moderate; RBC 2.66 m/uL (4.30-5.90); RDW 19.1 % (11.5-15.5)
[2019-06-27 06:21] LABS: MCV 99.9 fL (80.0-100.0); VBG PH 7.37 (7.31-7.41); WBC 0.2 k/uL (3.8-10.6)
[2019-06-27 06:22] LABS: INR 1.1 (<1.2); Partial Thromboplastin Time 32.4 sec (22.0-30.0); Prothrombin Time 11.7 sec (9.0-12.0)
[2019-06-27 06:34] LABS: Albumin 1.9 g/dL (3.5-5.0); Calcium 7.3 mg/dL (8.4-10.2); Magnesium 1.9 mg/dL (1.6-2.3); Phosphorus 4.8 mg/dL (2.5-4.5); Potassium 4.2 mmol/L (3.5-5.1); Total Bilirubin 0.8 mg/dL (0.2-1.3); Total Protein 4.2 g/dL (6.3-8.2)
[2019-06-27 06:39] LABS: Anisocytosis (M) Present; Platelet Count 70 k/uL (150-450); Poikilocytosis (M) Present; Polychromasia Present
[2019-06-27] MEDS ORDERED: PROPOFOL 1,000 MG in EMPTY BAG 1 BAG IV SCH (06:45)
--- NOTE | 2019-06-27 06:56 | XR ---
EXAMINATION TYPE: XR chest 1V portable DATE OF EXAM: 06/27/2019 COMPARISON: 06/14/2019 HISTORY: Short of breath TECHNIQUE: Single frontal view of the chest is obtained. FINDINGS: Endotracheal tube is 4 cm from the osman. There is nasogastric tube in good position. The re is right jugular catheter with the tip in the superior vena cava. There is severe pulmonary airspa ce edema. There are chest leads. IMPRESSION: Increased pulmonary edema compared to last exam and suggestive of RDS.
[2019-06-27] MEDS ORDERED: INSULIN ASPART (NovoLOG) 100 UNIT/ML VIAL SQ SCH (07:00)
[2019-06-27] MEDS ORDERED: LEVOFLOXACIN 750MG-D5W PMX 750 MG in DEXTROSE/WATER 1 150ML.BAG IVPB SCH (07:00)
[2019-06-27 07:29] LABS: Glucose,Whole Blood 119 mg/dL (75-99)
[2019-06-27] MEDS ORDERED: ARTIFICIAL TEARS-HYPROMELLOSE DROPS 15 ML BTL BOTH EYES PRN (08:00)
[2019-06-27] MEDS ORDERED: SODIUM CHLORIDE 0.9% 1,000 ML IV ONE ×4 (08:47→13:44)
[2019-06-27] MEDS: PIPERACILLIN-TAZOBACTAM 3.375 GM in SODIUM CHLORIDE 0.9% 100 ML IVPB SCH ×3 (08:58→23:01)
[2019-06-27] MEDS: HEPARIN SODIUM,PORCINE 5,000 UNIT/ML 1 ML VIAL SQ SCH ×3 (08:58→23:01)
[2019-06-27] MEDS ORDERED: PANTOPRAZOLE 40 MG/10 ML VIAL IV SCH (09:00)
[2019-06-27] MEDS: CHLORHEXIDINE GLUCONATE 15 ML CUP MUCOUS MEM SCH ×2 (09:46→21:15)
[2019-06-27] MEDS ORDERED: PANTOPRAZOLE 40 MG TABLET PO SCH (10:15)
[2019-06-27 11:08] VITALS: BMI 22.8
[2019-06-27] MEDS ORDERED: IV FLUID CONTINUATION 1,000 ML IV ONE (11:46)
[2019-06-27] MEDS: ALBUTEROL NEBULIZED 2.5 MG/3 ML INHALATION SCH ×3 (12:07→19:48)
[2019-06-27 12:08] LABS: Glucose,Whole Blood 105 mg/dL (75-99)
[2019-06-27] MEDS: FILGRASTIM-SNDZ 480 MCG/0.8 ML SYRINGE SQ SCH (12:10)
[2019-06-27] MEDS: PROPOFOL 1,000 MG in EMPTY BAG 1 BAG IV SCH ×3 (12:11→22:47)
[2019-06-27] MEDS: INSULIN ASPART (NovoLOG) 100 UNIT/ML VIAL SQ SCH ×2 (12:12→19:07)
[2019-06-27] MEDS ORDERED: CISATRACURIUM 2 MG/ML 5 ML VIAL IV ONE (12:15)
[2019-06-27] MEDS: SODIUM CHLORIDE 0.9% 1,000 ML IV SCH ×4 (13:49→21:04)
[2019-06-27] MEDS: URSODIOL 300 MG CAP PO SCH ×2 (13:58→17:38)
[2019-06-27] MEDS: FOLIC ACID 1 MG TAB PO SCH (14:01)
--- NOTE | 2019-06-27 15:27 | HP ---
HISTORY AND PHYSICAL DATE OF SERVICE: 06/27/2019. CHIEF COMPLAINTS: Hematoma, GI bleed and acute respiratory failure. HISTORY OF PRESENT ILLNESS: This 79-year-old gentleman with a past medical history of multiple medical problems including diabetes, hypertension, family history of myocardial infarction history of migraine headache, history of coronary artery disease/stent, history of bladder tumor removal, being followed by Dr. Barrera in the outpatient setting, was recently admitted to [facility] with features of bilateral pneumonia. The patient also had early sepsis. Patient also had hyperthermia, bilateral pleural effusion and multiple other medical problems. Patient was confused also. The patient was treated with IV antibiotics. Patient improved significantly. The culture showed multiple organisms during that admission including Klebsiella oxytoca, Pseudomonas aeruginosa, Enterobacter cloacae. The patient improved significantly. Patient was sent to the [facility] rehab at this time. In the rehab, the patient apparently had vomiting of coffee-ground material. The patient was found to be hypotensive and no pulse ox. The patient also had some bradycardia, hypotension, the pulse ox is 72 percent. The patient was hypothermic as well. The patient was taken to [facility] because of acute respiratory failure. The patient mechanically intubated and monitored in ICU at this time. Levophed drip was also initiated. Patient was given IV boluses up to 3 L. The patient being closely monitored. Patient mechanically ventilated. Settings are noted. Patient started on broad-spectrum IV antibiotics. The chest x-ray showed possible bilateral pneumonia as well. Infectious Disease also has been consulted. The patient had acute respiratory acidosis. Detailed history could not be taken from the patient because the patient is mechanically sedated and ventilated as mentioned earlier. Most of the history taken from my discussion with staff and review of chart at this time. PAST MEDICAL HISTORY: History of recent bilateral pneumonia, history of diabetes type 2, hypertension, hyperlipidemia, myocardial infarction, mental handicap, CAD/stent. MEDICATIONS: Home medications are: 1. Protonix 40 mg p.o. daily. 2. Isordil 300 mg a.c. t.i.d. 3. MiraLAX 17 g daily p.r.n. 4. ProAir 2 puffs t.i.d. 5. Tylenol 650 q.4 p.r.n. 6. Flomax 0.4 daily. 7. Senna 17.2 q.h.s. 8. NovoLog FlexPen 4 units a.c. t.i.d. 9. Procardia XL 60 mg p.o. daily. 10.Rocaltrol 0.25 mg q.48h. 11.Synthroid 50 mcg p.o. daily. 12.Probiotic 1 p.o. daily. 13.NovoLog FlexPen 2 units subcu q.h.s. 14.Iron 320 mg p.o. daily. 15.Depakote 1000 mg p.o. daily. 16.Diflucan 100 mg p.o. q.h.s. 17.Aranesp 40 mg subcu. 18.Vitamin D3 25 mcg 2000 daily. ALLERGIES: LITHIUM. FAMILY HISTORY: Lung cancer. SOCIAL HISTORY: REVIEW OF SYSTEMS: Could not be taken because the patient is mechanically intubated. PHYSICAL EXAM: Pulse 71, blood pressure 120/45, respiration 16, temperature 98.2, pulse ox 94% on 80% mechanical ventilation. Vent settings are noted. HEENT: Conjunctivae normal. Oral mucosa moist. Neck is no jugular venous distention. No carotid bruit. No lymph node enlargement. CARDIOVASCULAR S1-S2 muffled. RESPIRATION: Breath sounds diminished in the bases. A few scattered rhonchi and crackles. ABDOMEN: Soft, nontender. No mass palpable. LEGS: No edema. NERVOUS SYSTEM: The patient mechanically ventilated and sedated. SKIN: No ulcers, rashes or bleeding. JOINTS: No active deforming arthropathy. LABS: WBC 6.2, hemoglobin is 8.2, platelets 70, and INR is 1.1. Sodium 143, potassium 4.2. Creatinine is 1.61. The baseline creatinine was 1.5. Albumin is 1.9. ASSESSMENT: 1. Hematemesis, possible acute upper gastrointestinal bleeding with acute blood loss anemia. 2. Possible acute bilateral pneumonia possibly aspiration with acute hypoxic respiratory failure on mechanical ventilation with failure of outpatient treatment with severe sepsis and septic shock and hypotension. 3. Pancytopenia of undetermined origin. 4. Severe neutropenia. 5. Increased creatinine with chronic kidney disease stage III. 6. Hypoalbuminemia with mild to moderate protein calorie malnutrition. 7. History of recent bilateral pneumonia. 8. Hyperthermia. 9. History of previous left leg cellulitis. 10.History of previous respiratory failure possibly secondary to congestive heart failure acute exacerbation with acute on chronic systolic dysfunction. 11.Diabetes mellitus type 2. 12.Hypertension. 13.Hyperlipidemia. 14.Myocardial infarction. 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 16.History of bladder tumor. 17.History of coronary artery disease/stent. 18.History of cataracts. 19.Remote history of nicotine dependence. 20.FULL CODE. DISCUSSION AND RECOMMENDATIONS: In this 79-year-old gentleman who presented with multiple complex medical issues, we will monitor the patient closely. We will continue to monitor. Currently hemoglobin is 8.9. I would recommend broad-spectrum IV antibiotics. Obtain the cultures. I will obtain Gastroenterology consultation for possible endoscopes. Closely monitor with Dr. Acharya in the ICU. Levophed drip. I would also recommend Infectious Disease evaluation. The patient is started on Zosyn and Levaquin. I would also recommend Hematology/Oncology evaluation by Dr. Vasquez because of the severe neutropenia and pancytopenia. Overall prognosis guarded because of multiple complex medical issues. Further recommendations to follow. A copy of dictation being forwarded to Dr. Barrera who is the primary physician. OXANA / RACHEL: [id number] /
--- NOTE | 2019-06-27 15:29 | P.CNPUL ---
History of Present Illness Consult date: 06/27/19 Reason for consult: dyspnea, hypoxemia History of present illness: A 79-year-old male patient admitted to the intensive care unit because of an acute respiratory failure. The patient was intubated in the emergency department. According to the transfer paperwork from the other facility, the patient was a retirement and he developed emesis with coffee-ground material and he was found to be hypotensive with a low pulse ox. Vital signs before leaving the retirement were abnormal with a pulse of 47, blood pressure of 75 of 48, respiratory rate of 16 with a pulse oximeter of 72%. The patient was also hypothermic. Temperature subsequently was found to be 85F. Workup included an abnormal hemoglobin of 6.9. He was transfused. He was placed on a BiPAP and he did have an episode of coffee-ground emesis on the Route which she aspirated. The patient's was intubated and other facility. He did receive a total of 2 units of packed RBC. He was started on IV Protonix. He was started on IV fluids. He was started on IV pressors. He was given IV fentanyl. After arriving to our hospital, the patient was found to be pancytopenic with a white cell count 0.8 with a hemoglobin of 8.9 and the platelet count 70,000. The blood. While the patient a mechanical ventilator showed a pH of 7.28 with a pCO2 of 46 and pO2 of 103 and this was on assist control mode of ventilation at the rate of 12 with tidal volume of 450 and FiO2 of 80% and PEEP of 5. This morning, the patient is sedated with propofol which is running at 20 g per KG per minute. The patient is currently receiving IV fluid at the rate of 100 mL an hour. His CVP is somewhat between 1 and 2 mmHg. The patient has received a total of 2 L of IV fluid bolus. The patient is on pressors with norepinephrine infusion running at 0.5 g per KG per minute. The patient had a temperature of 37F. The patient is producing urine output. The patient is covered with a combination of Zosyn and Levaquin. The patient is known to me from previous admissions. The patient has history of developmental delay. The patient also has an intellect of a seven-day there. He has history of hypertension, hyperlipidemia, diabetes mellitus, coronary artery disease, previous myocardial infarction, bladder cancer, and history of chronic pancreatitis receiving a stent in the pancreatic duct, and he is mentally handicapped. The patient was in our intensive care unit approximately a month ago for acute hypoxic respiratory failure and pneumonia and lower extremity swelling/cellulitis. He also has stage III chronic kidney disease and pancytopenia probably related to some degree of liver cirrhosis as the patient has had a previous liver biopsy indicating chronic cholestatic changes Past Medical History Past Medical History: Cancer, Diabetes Mellitus, Hyperlipidemia, Hypertension, Myocardial Infarction (OK) Additional Past Medical History / Comment(s): Mental handicap, History of aspiration with pneumonia, chronic systolic heart failure, diabetes mellitus type 2, chronic stage III kidney disease, chronic pancytopenia, chronic liver cirrhosis with previous biopsies indicating cholestatic picture, hypertension, hyperlipidemia, coronary artery disease and previous [place], macular degeneration/developmental delay, coronary artery disease with previous coronary stents, history of bladder tumor, Last Myocardial Infarction Date:: 2009 History of Any Multi-Drug Resistant Organisms: None Reported Past Surgical History: Heart Catheterization With Stent Additional Past Surgical History / Comment(s): bladder tumors removed; Cataract R eye, stent place in pancreatic duct Past Anesthesia/Blood Transfusion Reactions: No Reported Reaction Date of Last Stent Placement:: 2009 Past Psychological History: No Psychological Hx Reported Additional Psychological History / Comment(s): mentally handicapped Smoking Status: Never smoker Past Alcohol Use History: None Reported Additional Past Alcohol Use History / Comment(s): quit smoking 2009,1ppd Past Drug Use History: None Reported - Past Family History Father Family Medical History: Cancer Additional Family Medical History / Comment(s): lung Mother Family Medical History: COPD Additional Family Medical History / Comment(s): bowel surgeries Medications and Allergies Home Medications Medication Instructions Recorded Confirmed Type Calcitriol [Rocaltrol] 0.25 mcg PO Q48H 12/29/16 06/27/19 History Cholecalciferol [Vitamin D3 (25 2,000 unit PO DAILY@0800 12/29/16 06/27/19 History Mcg = 1000 Iu)] Ferrous Sulfate [Iron (65 MG 325 mg PO DAILY 12/29/16 06/27/19 History Elemental)] Tamsulosin [Flomax] 0.4 mg PO DAILY 12/29/16 06/27/19 History Divalproex Sodium [Divalproex 1,000 mg PO DAILY 03/19/19 06/27/19 History Sodium ER] Polyethylene Glycol 3350 [Miralax] 17 gm PO DAILY PRN 03/19/19 06/27/19 History Sennosides [Senna] 17.2 mg PO HS 03/19/19 06/27/19 History Albuterol Sulfate [Proair Hfa] 2 puff INHALATION RT-TID@08,12,18 05/28/19 11/0 12/10 History L.acidoph,Paracasei, B.lactis 1 cap PO DAILY 05/28/19 06/27/19 History [Probiotic] Pantoprazole [Protonix] 40 mg PO DAILY 05/28/19 06/27/19 History Ursodiol 300 mg PO AC-TID 05/28/19 06/27/19 History Levothyroxine Sodium [Synthroid] 50 mcg PO DAILY@0600 06/11/19 06/27/19 History Acetaminophen Tab [Tylenol] 650 mg PO Q4HR PRN tab 06/21/19 06/27/19 Rx NIFEdipine XL [Procardia XL] 60 mg PO DAILY@0800 tab.er.24 06/21/19 06/27/19 Rx Darbepoetin Robby [Aranesp] 40 mcg SQ WE 06/27/19 06/27/19 History Fluconazole [Diflucan] 100 mg PO HS 06/27/19 06/27/19 History Insulin Aspart [NovoLOG Flexpen] 2 units SQ HS 06/27/19 06/27/19 History Insulin Aspart [NovoLOG Flexpen] 4 unit SQ AC-TID 06/27/19 06/27/19 History Allergies Allergy/AdvReac Type Severity Reaction Status Date / Time lithium Allergy Unknown Verified 06/27/19 07:55 Physical Exam Vitals: Vital Signs Temp Pulse Resp BP Pulse Ox 06/27/19 13:00 98.4 F 71 16 126/45 94 L 06/27/19 12:45 73 25 H 126/46 95 06/27/19 12:36 73 06/27/19 12:30 71 25 H 116/57 95 06/27/19 12:15 76 26 H 115/49 94 L 06/27/19 12:00 99.0 F 71 24 118/52 96 06/27/19 11:45 72 23 123/58 96 06/27/19 11:30 70 20 124/53 96 06/27/19 11:15 70 26 H 123/52 97 06/27/19 11:00 98.6 F 70 20 115/49 98 06/27/19 10:45 70 24 92/49 97 06/27/19 10:30 74 23 121/50 98 06/27/19 10:15 72 26 H 103/62 97 06/27/19 10:00 98.6 F 74 27 H 136/58 98 06/27/19 09:45 77 26 H 152/60 97 06/27/19 09:30 74 26 H 73/43 96 06/27/19 09:15 74 27 H 105/53 95 06/27/19 09:00 98.2 F 77 25 H 116/52 95 06/27/19 08:45 75 25 H 122/55 96 06/27/19 08:30 97.5 F L 73 26 H 134/49 98 06/27/19 08:15 97.9 F 70 24 131/52 98 06/27/19 08:00 97.7 F 71 27 H 103/60 98 06/27/19 07:45 97.0 F L 71 30 H 86/48 96 06/27/19 07:30 96.3 F L 67 12 71/29 94 L 06/27/19 07:15 64 27 H 111/55 98 06/27/19 06:30 96.8 F L 63 25 H 124/58 100 06/27/19 06:20 96.8 F L 64 26 H 124/58 100 06/27/19 06:10 96.8 F L 62 25 H 126/59 100 06/27/19 06:00 96.6 F L 62 21 127/59 99 06/27/19 05:50 65 24 127/59 99 06/27/19 05:40 62 21 125/65 99 06/27/19 05:30 60 18 130/67 99 06/27/19 05:20 60 31 H 130/67 98 06/27/19 05:10 95.3 F L 61 27 H 122/56 99 06/27/19 05:00 95.2 F L 63 24 123/54 99 06/27/19 04:58 87.3 F L 63 22 123/54 100 06/27/19 04:50 60 23 82/49 99 06/27/19 04:40 94.6 F L 55 L 25 H 74/60 99 06/27/19 04:30 54 L 19 101/53 98 06/27/19 04:21 59 L 22 101/53 98 06/27/19 04:16 60 20 82/49 99 Intake and Output 06/27/19 06/27/19 06/27/19 06:59 14:59 22:59 Intake Total 3877.998 Output Total 11 Balance 3866.998 Intake: IV 29 Normal Saline Pressure 9 Bag Intake, IV Titration 3848.998 Amount Levofloxacin 750Mg-D5w 100 Pmx 750 mg In Dextrose/ Water 1 150ml.bag @ 100 mls/hr IVPB Q24H [facility] Rx#: [id number] Norepinephrine 32 mg In 101.132 Sodium Chloride 0.9% 218 ml @ 0.05 MCG/KG/MIN 1. 758 mls/hr IV .Q24H [facility] Rx#:[id number] Piperacillin-Tazobactam 3 100 .375 gm In Sodium Chloride 0.9% 100 ml @ 25 mls/hr IVPB Q8HR [facility] Rx# :[id number] Propofol 1,000 mg In 25.617 Empty Bag 1 bag @ Titrate IV .Q0M [facility] Rx#: [id number] Propofol 1,000 mg In 22.249 Empty Bag 1 bag @ Titrate IV .Q0M [facility] Rx#: [id number] Sodium Chloride 0.9% 1, 500 000 ml @ 100 mls/hr IV . Q10H [facility] Rx#:[id number] Sodium Chloride 0.9% 1, 3000 000 ml @ 999 mls/hr IV . Q1H1M [facility] Rx#:[id number] Output: Urine 11 Other: Voiding Method Indwelling Catheter Weight 68.039 kg 68.039 kg ABP, PAP, CO, CI - Last 8 Hours Arterial Blood Pressure 129/41 Arterial Blood Pressure 123/42 Arterial Blood Pressure 149/56 GENERAL EXAM: Patient is intubated on the mechanical ventilator, comfortable sedated with propofol. HEAD: Normocephalic/atraumatic. Orogastric and orotracheal tube are both in place. EYES: Normal reaction of pupils, equal size. Conjunctiva pink, sclera white. NOSE: Clear with pink turbinates. THROAT: No erythema or exudates. NECK: No masses, no JVD, no thyroid enlargement, no adenopathy. CHEST: No chest wall deformity. Symmetrical expansion. LUNGS: Equal air entry with bilateral lower lobe crackles over posterior lower bases CVS: Regular rate and rhythm, normal S1 and S2, no gallops, no murmurs, no rubs ABDOMEN: Soft, nontender. No hepatosplenomegaly, normal bowel sounds, no guarding or rigidity. EXTREMITIES: No clubbing, no edema, no cyanosis, 2+ pulses and upper and lower extremities. MUSCULOSKELETAL: Muscle strength and tone normal. SPINE: No scoliosis or deformity SKIN: Examination of the skin revealed no evidence of significant rashes, suspicious appearing nevi or other concerning lesions. CENTRAL NERVOUS SYSTEM: Sedated. We will dose to painful stimulation all 4 extremities. The rest of neurologic exam is nonfocal. Pupils are equal and reactive to light. No facial asymmetry. PSYCHIATRIC: Inactive unable to assess due to sedation. Results - Laboratory Findings CBC and BMP: 06/27/19 05:43 06/27/19 05:43 ABG ABG pH 7.28 (7.35-7.45) L 06/27/19 04:58 ABG pCO2 46 mmHg (35-45) H 06/27/19 04:58 ABG pO2 103 mmHg (83-108) 06/27/19 04:58 ABG O2 Saturation 97.0 % (94-97) 06/27/19 04:58 PT/INR, D-dimer PT 11.7 sec (9.0-12.0) 06/27/19 05:43 INR 1.1 (<1.2) 06/27/19 05:43 Abnormal lab findings: Abnormal Labs 06/27/19 06/27/19 06/27/19 04:58 05:43 05:43 WBC 0.2 L* RBC 2.66 L Hgb 8.9 L Hct 26.6 L RDW 19.1 H Plt Count 70 L APTT ABG pH 7.28 L ABG pCO2 46 H VBG pCO2 VBG HCO3 Chloride 116 H Carbon Dioxide 20 L BUN 37 H Creatinine 1.61 H Glucose 120 H POC Glucose (mg/dL) Calcium 7.3 L Phosphorus 4.8 H Total Protein 4.2 L Albumin 1.9 L 06/27/19 06/27/19 06/27/19 05:43 05:43 07:26 WBC RBC Hgb Hct RDW Plt Count APTT 32.4 H ABG pH ABG pCO2 VBG pCO2 36 L VBG HCO3 20 L Chloride Carbon Dioxide BUN Creatinine Glucose POC Glucose (mg/dL) 119 H Calcium Phosphorus Total Protein Albumin 06/27/19 12:07 WBC RBC Hgb Hct RDW Plt Count APTT ABG pH ABG pCO2 VBG pCO2 VBG HCO3 Chloride Carbon Dioxide BUN Creatinine Glucose POC Glucose (mg/dL) 105 H Calcium Phosphorus Total Protein Albumin - Diagnostic Findings Chest x-ray: image reviewed Assessment and Plan Plan: 1 acute hypoxic respiratory failure with diffuse bilateral patchy infiltrates/pneumonia most likely secondary to aspiration, cannot rule out underlying component of ARDS. 2 acute ventilator-dependent respiratory failure secondary to above 3 aspiration of coffee ground material, consider upper GI bleed 4 suspect upper GI bleeding as the patient presented with coffee-ground emesis and subsequent aspiration. Hemoglobin was low at the other facility and the patient got transfused with a total of 2 units of packed RBC and the current h emoglobin is above 8 5 coronary artery disease with previous [place] 6 hypotension, acute, most likely septic in nature although a component of hypovolemic hypotension cannot be completely excluded . The patient's CVP is low. The patient will need a combination of fluids and pressors for now. He has received a total of 2 units of packed RBCs. 7 acute on chronic anemia, consider blood loss anemia, post transfusion with packed RBCs 8 chronic systolic heart failure , with an ejection fraction of 45-50% with segmental wall motion abnormalities based on echocardiogram that was done in April 2019 9 hypertension 10 hyperlipidemia 11 diabetes mellitus 12 bladder cancer 13 history of liver cirrhosis, previous liver biopsy indicating Patchy sinusoidal dilatation with perisinusoidal fibrosis, suggestive of chronic venous outflow obstruction. No significant inflammation or evidence of primary biliary cholangitis. Mild periportal fibrosis 14 pancytopenia with a combination of anemia neutropenia and thrombocytopenia all related to liver disease 15 acute hypothermia, improved 16 Mentally challenged/mental retardation with developmental delay 17 history of chronic pancreatitis post insertion of a pancreatic duct stenting 18 chronic stage III kidney disease Plan The patient has a low CVP. The patient would benefit from additional fluids. The patient will be given an additional 2 L of IV fluid in the form of normal saline in the maintenance rate will be increased up to 150 mL an hour. Continue Zosyn and Levaquin for now. Obtain an art line catheter to monitor the blood pressure. We'll proceed with a bronchoscopy and therapy care was suctioning and bronchial lavage. Clinically suspect aspiration. The patient also may have had a upper GI bleed. The patient had a low hemoglobin and the patient got transfused with packed RBC. The patient will be placed on IV Protonix. Platelet count is at 70 which probably contributed to the upper GI bleeding. White cell count is low. The patient's absolute neutrophil count is low. The patient will be given Zarxio and will monitor the white cell count. Continue vent support for now. Increase the respiratory rate up to 25. Gradually wean down the FiO2 as tolerated to maintain a saturation above 90%. Monitor hemodyn amics. Monitor hemoglobin. Keep pressors for now. Obtain echocardiogram. External warming. We'll continue to follow. Condition is critical and prognosis poor baseline above-mentioned comorbidities. Time with Patient: Greater than 30
[2019-06-27 18:01] LABS: Anisocytosis Slight; HGB 9.5 gm/dL (13.0-17.5); Hypochromasia Moderate; MCH 33.3 pg (25.0-35.0); MCHC 32.7 g/dL (31.0-37.0); MCV 102.1 fL (80.0-100.0); Macrocytosis Moderate; Mean Platelet Volume 8.3; Poikilocytosis Moderate; RBC 2.84 m/uL (4.30-5.90); RDW 18.9 % (11.5-15.5)
[2019-06-27 18:05] LABS: WBC 0.6 k/uL (3.8-10.6)
[2019-06-27 18:06] LABS: Glucose,Whole Blood 80 mg/dL (75-99)
[2019-06-27 18:07] LABS: Platelet Count 99 k/uL (150-450)
[2019-06-27 18:16] LABS: Polychromasia Present
[2019-06-27] MEDS ORDERED: Magnesium Replacement Protocol 1 EACH MISC MISCELLANE PRN (19:13)
[2019-06-27] MEDS ORDERED: Potassium Replacement Protocol 1 EACH MISC MISCELLANE PRN (19:13)
--- NOTE | 2019-06-27 20:20 | P.CONS ---
History of Present Illness - Reason for Consult Consult date: 06/27/19 - Chief Complaint shortness of breath - History of Present Illness 79-year-old male with a history of developmental delay has had several hospitalizations was recently at this facility where he had evidence of pneumonia and acute hypoxic respiratory failure. He was treated for pneumonia and was cared for an extended care facility. Apparently there is a sudden change in his status where he came acutely ill with a bout of emesis that apparently was coffee-ground in nature. The patient was noted to be hypotensive and hypothermic. He was transferred to an outside hospital where he was found to be with a temperature of 85, hemoglobin was low at 6.9 he had hypotension. We see some fluid resuscitation was transferred to our emergency center. It is noted at the outside facility he did receive 2 units of packed red cells for his significant anemia. It was thought that he was having gastrointestinal bleeding. He required intubation time of his arrival and also required norep inephrine for his hypotension. A warming blanket was utilized with his prior cultures she was treated with Zosyn and Levaquin. The patient remains on the ventilator. He is intubated sedated and mechanically ventilated and is on a lower dose of vasopressors and he was. He is receiving his sixth liter of IV fluids in addition to his 2 units of packed red cells. He continues to have poor urinary output. It is noticed that he also has worsening of his pancytopenia at this time. Review of Systems ROS unobtainable: due to endotracheal tube Past Medical History Past Medical History: Cancer, Diabetes Mellitus, Hyperlipidemia, Hypertension, Myocardial Infarction (RI) Additional Past Medical History / Comment(s): Mental handicap "now he is the age of a 5year old (found out about 5 years ago), History of aspiration with pneumonia, chronic systolic heart failure, diabetes mellitus type 2, chronic stage III kidney disease, chronic pancytopenia, chronic liver cirrhosis with previous biopsies indicating cholestatic, coronary artery disease and previous RI, , coronary artery disease with previous coronary stents, history of bladder tumor, Last Myocardial Infarction Date:: 2009 History of Any Multi-Drug Resistant Organisms: None Reported Past Surgical History: Heart Catheterization With Stent Additional Past Surgical History / Comment(s): bladder tumors removed; Cataract R eye 2017, stent place in pancreatic duct Past Anesthesia/Blood Transfusion Reactions: No Reported Reaction Date of Last Stent Placement:: 2010 Past Psychological History: No Psychological Hx Reported Additional Psychological History / Comment(s): mentally handicapped (age is 5 years old) Smoking Status: Former smoker Past Alcohol Use History: None Reported Additional Past Alcohol Use History / Comment(s): quit smoking 2010,1ppd Past Drug Use History: None Reported - Past Family History Father Family Medical History: Cancer Additional Family Medical History / Comment(s): lung Mother Family Medical History: COPD Additional Family Medical History / Comment(s): bowel surgeries Brother(s) Family Medical History: Diabetes Mellitus, Hyperlipidemia Additional Family Medical History / Comment(s): Dr Menon is his PCP & [facility] Sister(s) Family Medical History: Cancer Additional Family Medical History / Comment(s): Lung CA with part of her lung removed Medications and Allergies Home Medications and Allergies Comment(s): Current Medications Acetaminophen (Tylenol Suppository) 650 mg RECTAL Q4HR PRN PRN Reason: Fever And/ Or Mild Pain Albuterol Sulfate (Ventolin Nebulized) 2.5 mg INHALATION RT-QID [facility] Last Admin: 06/27/19 19:48 Dose: 2.5 mg Documented by: Artificial Tears (Artificial Tear Drops) 1 drops BOTH EYES Q4HR PRN PRN Reason: Dry Eye(s) Calcitriol (Rocaltrol) 0.25 mcg PO Q48H [facility] Chlorhexidine Gluconate (Peridex) 15 ml MUCOUS MEM BID [facility] Last Admin: 06/27/19 09:46 Dose: 15 ml Documented by: Cholecalciferol (Vitamin D3 (25 Mcg = 1000 Iu)) 2,000 unit PO DAILY@0800 [facility] Darbepoetin Robby (Aranesp) 40 mcg SQ WE [facility] Divalproex Sodium (Depakote Er) 1,000 mg PO DAILY [facility] Ferrous Sulfate (Feosol) 325 mg PO DAILY [facility] Filgrastim (Zarxio) 480 mcg SQ DAILY [facility] Last Admin: 06/27/19 12:10 Dose: 480 mcg Documented by: Folic Acid (Folic Acid) 2 mg PO DAILY [facility] Last Admin: 06/27/19 14:01 Dose: 2 mg Documented by: Heparin Sodium (Porcine) (Heparin) 5,000 unit SQ Q8HR [facility] Last Admin: 06/27/19 17:37 Dose: 5,000 unit Documented by: Norepinephrine Bitartrate 32 (mg/ Sodium Chloride) 250 mls @ 1.758 mls/hr IV .Q24H [facility]; Protocol Last Titration: 06/27/19 16:30 Dose: 0.65 mcg/kg/min, 22.852 mls/hr Documented by: Piperacillin Sod/Tazobactam (Sod 3.375 gm/ Sodium Chloride) 100 mls @ 25 mls/hr IVPB Q8HR [facility] Last Admin: 06/27/19 17:28 Dose: 25 mls/hr Documented by: Propofol 1,000 mg/ IV Solution 100 mls @ 0 mls/hr IV .Q0M [facility]; Protocol Last Titration: 06/27/19 14:00 Dose: 25 mcg/kg/min, 10.206 mls/hr Documented by: Sodium Chloride (Saline 0.9%) 1,000 mls @ 150 mls/hr IV .Q6H40M [facility] Last Admin: 06/27/19 13:49 Dose: 150 mls/hr Documented by: Levofloxacin 750 mg/ IV (Solution) 150 mls @ 100 mls/hr IVPB Q48H [facility] Magnesium Sulfate/Dextrose 1 (gm/ IV Solution) 100 mls @ 100 mls/hr IVPB Q1H [facility] Stop: 06/27/19 22:59 Insulin Aspart (Novolog) 0 unit SQ Q6H [facility]; Protocol Last Admin: 06/27/19 19:07 Dose: Not Given Documented by: Levothyroxine Sodium (Synthroid) 50 mcg PO DAILY@0600 [facility] Miscellaneous Information (Magnesium Per Protocol) 1 each MISCELLANE DAILY PRN; Protocol PRN Reason: Per Protocol Miscellaneous Information (Potassium Per Protocol) 1 each MISCELLANE DAILY PRN; Protocol PRN Reason: Per Protocol Morphine Sulfate (Morphine Sulfate (Inj)) 2 mg IV Q2HR PRN PRN Reason: Pain Scale 4 to 5 Naloxone HCl (Narcan) 0.2 mg IV Q2M PRN PRN Reason: Opioid Reversal Pantoprazole Sodium (Protonix) 40 mg IV DAILY [facility] Last Admin: 06/27/19 09:46 Dose: 40 mg Documented by: Tamsulosin HCl (Flomax) 0.4 mg PO DAILY [facility] Ursodiol (Actigall) 300 mg PO AC-TID [facility] Last Admin: 06/27/19 17:38 Dose: 300 mg Documented by: Home Medications Medication Instructions Recorded Confirmed Type Calcitriol [Rocaltrol] 0.25 mcg PO Q48H 12/29/16 06/27/19 History Cholecalciferol [Vitamin D3 (25 2,000 unit PO DAILY@0800 12/29/16 06/27/19 History Mcg = 1000 Iu)] Ferrous Sulfate [Iron (65 MG 325 mg PO DAILY 12/29/16 06/27/19 History Elemental)] Tamsulosin [Flomax] 0.4 mg PO DAILY 12/29/16 06/27/19 History Divalproex Sodium [Divalproex 1,000 mg PO DAILY 03/19/19 06/27/19 History Sodium ER] Polyethylene Glycol 3350 [Miralax] 17 gm PO DAILY PRN 03/19/19 06/27/19 History Sennosides [Senna] 17.2 mg PO HS 03/19/19 06/27/19 History Albuterol Sulfate [Proair Hfa] 2 puff INHALATION RT-TID@08,12,18 05/28/19 06/27/19 History L.acidoph,Paracasei, B.lactis 1 cap PO DAILY 05/28/19 06/27/19 History [Probiotic] Pantoprazole [Protonix] 40 mg PO DAILY 05/28/19 06/27/19 History Ursodiol 300 mg PO AC-TID 05/28/19 06/27/19 History Levothyroxine Sodium [Synthroid] 50 mcg PO DAILY@0600 06/11/19 06/27/19 History Acetaminophen Tab [Tylenol] 650 mg PO Q4HR PRN tab 06/21/19 06/27/19 Rx NIFEdipine XL [Procardia XL] 60 mg PO DAILY@0800 tab.er.24 06/21/19 06/27/19 Rx Darbepoetin Robby [Aranesp] 40 mcg SQ WE 06/27/19 06/27/19 History Fluconazole [Diflucan] 100 mg PO HS 06/27/19 06/27/19 History Insulin Aspart [NovoLOG Flexpen] 2 units SQ HS 06/27/19 06/27/19 History Insulin Aspart [NovoLOG Flexpen] 4 unit SQ AC-TID 06/27/19 06/27/19 History Allergies Allergy/AdvReac Type Severity Reaction Status Date / Time lithium Allergy Unknown Verified 06/27/19 07:55 Physical Exam Vitals: Vital Signs Temp Pulse Resp BP Pulse Ox 06/27/19 19:00 36.7 F L 75 17 109/64 95 06/27/19 18:30 77 20 123/56 95 06/27/19 18:00 98.4 F 80 15 122/48 90 L 06/27/19 17:30 77 18 119/46 96 06/27/19 17:00 98.1 F 75 16 114/55 95 06/27/19 16:30 75 19 116/53 95 06/27/19 16:02 72 06/27/19 16:00 97.0 F L 73 12 119/48 96 06/27/19 15:46 74 06/27/19 15:30 73 18 120/55 94 L 06/27/19 15:00 97.5 F L 76 15 132/50 94 L 06/27/19 14:30 78 18 136/55 94 L 06/27/19 14:00 98.1 F 75 19 141/52 93 L 06/27/19 13:30 75 20 140/55 94 L 06/27/19 13:00 98.4 F 71 16 126/45 94 L 06/27/19 12:45 73 25 H 126/46 95 06/27/19 12:36 73 06/27/19 12:30 71 25 H 116/57 95 06/27/19 12:15 76 26 H 115/49 94 L 06/27/19 12:00 99.0 F 71 24 118/52 96 06/27/19 11:45 72 23 123/58 96 06/27/19 11:30 70 20 124/53 96 06/27/19 11:15 70 26 H 123/52 97 06/27/19 11:00 98.6 F 70 20 115/49 98 06/27/19 10:45 70 24 92/49 97 06/27/19 10:30 74 23 121/50 98 06/27/19 10:15 72 26 H 103/62 97 06/27/19 10:00 98.6 F 74 27 H 136/58 98 06/27/19 09:45 77 26 H 152/60 97 06/27/19 09:30 74 26 H 73/43 96 06/27/19 09:15 74 27 H 105/53 95 06/27/19 09:00 98.2 F 77 25 H 116/52 95 06/27/19 08:45 75 25 H 122/55 96 06/27/19 08:30 97.5 F L 73 26 H 134/49 98 06/27/19 08:15 97.9 F 70 24 131/52 98 06/27/19 08:00 97.7 F 71 27 H 103/60 98 06/27/19 07:45 97.0 F L 71 30 H 86/48 96 06/27/19 07:30 96.3 F L 67 12 71/29 94 L 06/27/19 07:15 64 27 H 111/55 98 06/27/19 06:30 96.8 F L 63 25 H 124/58 100 06/27/19 06:20 96.8 F L 64 26 H 124/58 100 06/27/19 06:10 96.8 F L 62 25 H 126/59 100 06/27/19 06:00 96.6 F L 62 21 127/59 99 06/27/19 05:50 65 24 127/59 99 06/27/19 05:40 62 21 125/65 99 06/27/19 05:30 60 18 130/67 99 06/27/19 05:20 60 31 H 130/67 98 06/27/19 05:10 95.3 F L 61 27 H 122/56 99 06/27/19 05:00 95.2 F L 63 24 123/54 99 06/27/19 04:58 87.3 F L 63 22 123/54 100 06/27/19 04:50 60 23 82/49 99 06/27/19 04:40 94.6 F L 55 L 25 H 74/60 99 06/27/19 04:30 54 L 19 101/53 98 06/27/19 04:21 59 L 22 101/53 98 06/27/19 04:16 60 20 82/49 99 Intake and Output 06/27/19 06/27/19 06/27/19 06:59 14:59 22:59 Intake Total 5099.248 3002.519 Output Total 25 32 Balance 5074.248 2970.519 Intake: IV 44 30 Normal Saline Pressure 24 30 Bag Intake, IV Titration 5055.248 2942.519 Amount Levofloxacin 750Mg-D5w 100 Pmx 750 mg In Dextrose/ Water 1 150ml.bag @ 100 mls/hr IVPB Q24H [facility] Rx#: [id number] Norepinephrine 32 mg In 157.382 92.519 Sodium Chloride 0.9% 218 ml @ 0.05 MCG/KG/MIN 1. 758 mls/hr IV .Q24H [facility] Rx#:[id number] Piperacillin-Tazobactam 3 100 100 .375 gm In Sodium Chloride 0.9% 100 ml @ 25 mls/hr IVPB Q8HR [facility] Rx# :[id number] Propofol 1,000 mg In 25.617 Empty Bag 1 bag @ Titrate IV .Q0M [facility] Rx#: [id number] Propofol 1,000 mg In 22.249 Empty Bag 1 bag @ Titrate IV .Q0M [facility] Rx#: [id number] Sodium Chloride 0.9% 1, 500 000 ml @ 100 mls/hr IV . Q10H [facility] Rx#:[id number] Sodium Chloride 0.9% 1, 150 750 000 ml @ 150 mls/hr IV . Q6H40M [facility] Rx#:[id number] Sodium Chloride 0.9% 1, 3000 000 ml @ 999 mls/hr IV . Q1H1M [facility] Rx#:[id number] Sodium Chloride 0.9% 1, 1000 2000 000 ml @ 999 mls/hr IV . Q1H1M [facility] Rx#:[id number] Tube Feeding 30 Output: Urine 25 32 Other: Voiding Method Indwelling Catheter Indwelling Catheter Weight 68.039 kg 66.5 kg ABP, PAP, CO, CI - Last 8 Hours Arterial Blood Pressure 122/51 Arterial Blood Pressure 126/51 Arterial Blood Pressure 137/54 Arterial Blood Pressure 106/41 Arterial Blood Pressure 126/43 Arterial Blood Pressure 118/42 Arterial Blood Pressure 119/41 Arterial Blood Pressure 121/40 Arterial Blood Pressure 91/53 Arterial Blood Pressure 0/0 Arterial Blood Pressure 120/43 Arterial Blood Pressure 129/41 Arterial Blood Pressure 123/42 Arterial Blood Pressure 149/56 79-year-old male intubated sedated mechanically ventilated and on vasopressor therapy HEENT: Anicteric conjunctiva are pale but moist nasal mucosa grossly intact without significant lesions, there is no thrush is visual around the oral endotracheal tube no bleeding of oral cavity Neck: The neck is supple without significant lymphadenopathy or thyromegaly. Lungs: Symmetrical bilaterally entry bibasilar crackles greater on the right Heart: mildly irregular positive [id number] is no significant murmur click or rub, PMI was nondisplaced. Abdomen: Positive bowel sounds soft and nontender without palpable masses or organomegaly. There was no guarding or rebound. Extremities: The upper extremities have excellent pulses they are symmetric, no significant petechiae or telangiectasia. No splinter hemorrhages were noted. choice have trace edema The left foot has no acute abnormality. The right foot is evidence of some injury with a wound to the lateral surface of the fifth metatarsal head, full-thickness without drainage. There is eschar on the dorsum of the toes 3 and 4 without erythema. Neuro: sedated and intubated Results CBC & Chem 7: 06/27/19 17:09 06/27/19 05:43 Labs: Abnormal Lab Results - Last 24 Hours (Table) 06/27/19 06/27/19 06/27/19 Range/Units 04:58 05:43 05:43 WBC 0.2 L* (3.8-10.6) k/uL RBC 2.66 L (4.30-5.90) m/uL Hgb 8.9 L (13.0-17.5) gm/dL Hct 26.6 L (39.0-53.0) % MCV (80.0-100.0) fL RDW 19.1 H (11.5-15.5) % Plt Count 70 L (150-450) k/uL APTT (22.0-30.0) sec ABG pH 7.28 L (7.35-7.45) ABG pCO2 46 H (35-45) mmHg VBG pCO2 (37-51) mmHg VBG HCO3 (24-28) mmol/L Chloride 116 H (98-107) mmol/L Carbon Dioxide 20 L (22-30) mmol/L BUN 37 H (9-20) mg/dL Creatinine 1.61 H (0.66-1.25) mg/dL Glucose 120 H (74-99) mg/dL POC Glucose (mg/dL) (75-99) mg/dL Calcium 7.3 L (8.4-10.2) mg/dL Phosphorus 4.8 H (2.5-4.5) mg/dL Total Protein 4.2 L (6.3-8.2) g/dL Albumin 1.9 L (3.5-5.0) g/dL 06/27/19 06/27/19 06/27/19 Range/Units 05:43 05:43 07:26 WBC (3.8-10.6) k/uL RBC (4.30-5.90) m/uL Hgb (13.0-17.5) gm/dL Hct (39.0-53.0) % MCV (80.0-100.0) fL RDW (11.5-15.5) % Plt Count (150-450) k/uL APTT 32.4 H (22.0-30.0) sec ABG pH (7.35-7.45) ABG pCO2 (35-45) mmHg VBG pCO2 36 L (37-51) mmHg VBG HCO3 20 L (24-28) mmol/L Chloride (98-107) mmol/L Carbon Dioxide (22-30) mmol/L BUN (9-20) mg/dL Creatinine (0.66-1.25) mg/dL Glucose (74-99) mg/dL POC Glucose (mg/dL) 119 H (75-99) mg/dL Calcium (8.4-10.2) mg/dL Phosphorus (2.5-4.5) mg/dL Total Protein (6.3-8.2) g/dL Albumin (3.5-5.0) g/dL 06/27/19 06/27/19 Range/Units 12:07 17:09 WBC 0.6 L* (3.8-10.6) k/uL RBC 2.84 L (4.30-5.90) m/uL Hgb 9.5 L (13.0-17.5) gm/dL Hct 29.0 L (39.0-53.0) % MCV 102.1 H (80.0-100.0) fL RDW 18.9 H (11.5-15.5) % Plt Count 99 L (150-450) k/uL APTT (22.0-30.0) sec ABG pH (7.35-7.45) ABG pCO2 (35-45) mmHg VBG pCO2 (37-51) mmHg VBG HCO3 (24-28) mmol/L Chloride (98-107) mmol/L Carbon Dioxide (22-30) mmol/L BUN (9-20) mg/dL Creatinine (0.66-1.25) mg/dL Glucose (74-99) mg/dL POC Glucose (mg/dL) 105 H (75-99) mg/dL Calcium (8.4-10.2) mg/dL Phosphorus (2.5-4.5) mg/dL Total Protein (6.3-8.2) g/dL Albumin (3.5-5.0) g/dL Microbiology - Last 24 Hours (Table) 06/27/19 04:46 Gram Stain - Preliminary Sputum Sputum Culture - Preliminary Laboratory Results WBC 0.6 k/uL (3.8-10.6) L* 06/27/19 17:09 RBC 2.84 m/uL (4.30-5.90) L 06/27/19 17:09 Hgb 9.5 gm/dL (13.0-17.5) L 06/27/19 17:09 Hct 29.0 % (39.0-53.0) L 06/27/19 17:09 MCV 102.1 fL (80.0-100.0) H 06/27/19 17:09 MCH 33.3 pg (25.0-35.0) 06/27/19 17:09 MCHC 32.7 g/dL (31.0-37.0) 06/27/19 17:09 RDW 18.9 % (11.5-15.5) H 06/27/19 17:09 Plt Count 99 k/uL (150-450) L 06/27/19 17:09 Differential Comment 06/27/19 17:09 Manual Slide Review Performed 06/27/19 17:09 Polychromasia Present 06/27/19 17:09 Hypochromasia Moderate 06/27/19 17:09 Poikilocytosis Moderate 06/27/19 17:09 Poikilocytosis (manual Present 06/27/19 05:43 Anisocytosis Slight 06/27/19 17:09 Anisocytosis (manual) Present 06/27/19 05:43 Macrocytosis Moderate 06/27/19 17:09 PT 11.7 sec (9.0-12.0) 06/27/19 05:43 INR 1.1 (<1.2) 06/27/19 05:43 APTT 32.4 sec (22.0-30.0) H 06/27/19 05:43 Sample Site rrad 06/27/19 04:58 ABG pH 7.28 (7.35-7.45) L 06/27/19 04:58 ABG pCO2 46 mmHg (35-45) H 06/27/19 04:58 ABG pO2 103 mmHg (83-108) 06/27/19 04:58 ABG HCO3 22 mmol/L (21-25) 06/27/19 04:58 ABG Total CO2 23 mmol/L (19-24) 06/27/19 04:58 ABG O2 Saturation 97.0 % (94-97) 06/27/19 04:58 ABG Base Excess -5.2 mmol/L 06/27/19 04:58 Aston Test Yes 06/27/19 04:58 VBG pH 7.37 (7.31-7.41) 06/27/19 05:43 VBG pCO2 36 mmHg (37-51) L 06/27/19 05:43 VBG HCO3 20 mmol/L (24-28) L 06/27/19 05:43 FiO2 100 % 06/27/19 04:58 Sodium 143 mmol/L (137-145) 06/27/19 05:43 Potassium 4.2 mmol/L (3.5-5.1) 06/27/19 05:43 Chloride 116 mmol/L (98-107) H 06/27/19 05:43 Carbon Dioxide 20 mmol/L (22-30) L 06/27/19 05:43 Anion Gap 7 mmol/L 06/27/19 05:43 BUN 37 mg/dL (9-20) H 06/27/19 05:43 Creatinine 1.61 mg/dL (0.66-1.25) H 06/27/19 05:43 Est GFR (CKD-EPI)AfAm 47 (>60 ml/min/1.73 sqM) 06/27/19 05:43 Est GFR (CKD-EPI)NonAf 41 (>60 ml/min/1.73 sqM) 06/27/19 05:43 Glucose 120 mg/dL (74-99) H 06/27/19 05:43 POC Glucose (mg/dL) 80 mg/dL (75-99) 06/27/19 18:05 POC Glu [employer] In[employer] ID Faustina Reeder 06/27/19 18:05 Plasma Lactic Acid Alejandro 1.1 mmol/L (0.7-2.0) 06/27/19 05:18 Calcium 7.3 mg/dL (8.4-10.2) L 06/27/19 05:43 Phosphorus 4.8 mg/dL (2.5-4.5) H 06/27/19 05:43 Magnesium 1.9 mg/dL (1.6-2.3) 06/27/19 05:43 Total Bilirubin 0.8 mg/dL (0.2-1.3) 06/27/19 05:43 AST 20 U/L (17-59) 06/27/19 05:43 ALT 21 U/L (21-72) 06/27/19 05:43 Alkaline Phosphatase 118 U/L (38-126) 06/27/19 05:43 Total Protein 4.2 g/dL (6.3-8.2) L 06/27/19 05:43 Albumin 1.9 g/dL (3.5-5.0) L 06/27/19 05:43 Microbiology 06/27/19 04:46 Sputum Gram Stain - Preliminary 06/27/19 04:46 Sputum Sputum Culture - Preliminary Assessment and Plan (1) Aspiration pneumonia Narrative/Plan: 79-year-old male who was recently hospitalized which point in time he had hypoxic respiratory failure and with treatment and antibiotic therapy he had improvement. He was sent to rehabilitation to try to improve his strength however it appears that he had significant gastrointestinal bleeding resulting in hypotension coffee-ground emesis which resulted in aspiration. He then suffered respiratory failure and is now in the intensive care unit intubated sedated and mechanically ventilated. He is requiring vasopressor therapy but after his sixth liter of fluids he is having a downward titration of his vasopressor therapy. He is also 2 units of packed red cells. Patient has prior recent culture Zosyn and Levaquin are adequate choices. If he has any further decrease of his platelets within transitioned Zosyn to meropenem to be less impact on his platelets. Blood cultures are process, sputum culture from the bronchoscopy that was performed today are also pending. Bronchoscopy was for toileting given what appeared to be a large aspiration event. Overall his prognosis is very poor. The nursing staff has requested a family meeting to clarify his status given his current very poor prognosis. Current Visit: Yes Status: Acute Code(s): J69.0 - PNEUMONITIS DUE TO I NHALATION OF FOOD AND VOMIT SNOMED Code(s): 138136854 (2) Pancytopenia Current Visit: Yes Status: Acute Code(s): D61.818 - OTHER PANCYTOPENIA SNOMED Code(s): 984049456 (3) Hypothermia Current Visit: Yes Status: Acute Code(s): T68.XXXA - HYPOTHERMIA, INITIAL ENCOUNTER SNOMED Code(s): 512187381
--- NOTE | 2019-06-27 20:53 | P.CONS ---
History of Present Illness - Reason for Consult Consult date: 06/27/19 GI bleed Requesting physician: Isis Sloan - History of Present Illness 79-year-old male with a medical history significant for hypertension, hyperlipidemia, diabetes mellitus, coronary artery disease, bladder cancer, chronic pancreatitis status post ERCP with stent placement at [facility], developmental delay, from outside hospital for concerns over coffee-ground emesis, hypotension and hypoxia. Concerns or initially of episodes of coffee- ground emesis and suspicion for aspiration. Patient has been admitted to the ICU. He is intubated and sedated. Previously the patient has also been worked up for elevated liver enzymes with positive testing for antimitochondrial antibody. At that time patient did have a liver biopsy with findings of venous congestion sent to [facility] and felt to be secondary to underlying cardiac or vascular etiology with no evidence of primary biliary cholangitis on biopsy. Since admission to the hospital patient has had no further episodes of vomiting or melena or blood per rectum. Currently he is on broad-spectrum antibiotic coverage and receiving supportive care. Review of Systems ROS unobtainable: due to endotracheal tube (Currently intubated and sedated in the intensive care unit) Past Medical History Past Medical History: Cancer, Diabetes Mellitus, Hyperlipidemia, Hypertension, Myocardial Infarction (MD) Additional Past Medical History / Comment(s): Mental handicap "now he is the age of a 5year old (found out about 5 years ago), History of aspiration with pneumonia, chronic systolic heart failure, diabetes mellitus type 2, chronic stage III kidney disease, chronic pancytopenia, chronic liver cirrhosis with p revious biopsies indicating cholestatic, coronary artery disease and previous MD, , coronary artery disease with previous coronary stents, history of bladder tumor, Last Myocardial Infarction Date:: 2009 History of Any Multi-Drug Resistant Organisms: None Reported Past Surgical History: Heart Catheterization With Stent Additional Past Surgical History / Comment(s): bladder tumors removed; Cataract R eye 2017, stent place in pancreatic duct Past Anesthesia/Blood Transfusion Reactions: No Reported Reaction Date of Last Stent Placement:: 2009 Past Psychological History: No Psychological Hx Reported Additional Psychological History / Comment(s): mentally handicapped (age is 5 years old) Smoking Status: Former smoker Past Alcohol Use History: None Reported Additional Past Alcohol Use History / Comment(s): quit smoking 2009,1ppd Past Drug Use History: None Reported - Past Family History Father Family Medical History: Cancer Additional Family Medical History / Comment(s): lung Mother Family Medical History: COPD Additional Family Medical History / Comment(s): bowel surgeries Brother(s) Family Medical History: Diabetes Mellitus, Hyperlipidemia Additional Family Medical History / Comment(s): Dr Menon is his PCP & [facility] Sister(s) Family Medical History: Cancer Additional Family Medical History / Comment(s): Lung CA with part of her lung removed Medications and Allergies Home Medications Medication Instructions Recorded Confirmed Type Calcitriol [Rocaltrol] 0.25 mcg PO Q48H 12/29/16 06/27/19 History Cholecalciferol [Vitamin D3 (25 2,000 unit PO DAILY@0800 12/29/16 06/27/19 History Mcg = 1000 Iu)] Ferrous Sulfate [Iron (65 MG 325 mg PO DAILY 12/29/16 06/27/19 History Elemental)] Tamsulosin [Flomax] 0.4 mg PO DAILY 12/29/16 06/27/19 History Divalproex Sodium [Divalproex 1,000 mg PO DAILY 03/19/19 06/27/19 History Sodium ER] Polyethylene Glycol 3350 [Miralax] 17 gm PO DAILY PRN 03/19/19 06/27/19 History Sennosides [Senna] 17.2 mg PO HS 03/19/19 06/27/19 History Albuterol Sulfate [Proair Hfa] 2 puff INHALATION RT-TID@08,12,18 05/28/19 06/27/19 History L.acidoph,Paracasei, B.lactis 1 cap PO DAILY 05/28/19 06/27/19 History [Probiotic] Pantoprazole [Protonix] 40 mg PO DAILY 05/28/19 06/27/19 History Ursodiol 300 mg PO AC-TID 05/28/19 06/27/19 History Levothyroxine Sodium [Synthroid] 50 mcg PO DAILY@0600 06/11/19 06/27/19 History Acetaminophen Tab [Tylenol] 650 mg PO Q4HR PRN tab 06/21/19 06/27/19 Rx NIFEdipine XL [Procardia XL] 60 mg PO DAILY@0800 tab.er.24 06/21/19 06/27/19 Rx Darbepoetin Robby [Aranesp] 40 mcg SQ WE 06/27/19 06/27/19 History Fluconazole [Diflucan] 100 mg PO HS 06/27/19 06/27/19 History Insulin Aspart [NovoLOG Flexpen] 2 units SQ HS 06/27/19 06/27/19 History Insulin Aspart [NovoLOG Flexpen] 4 unit SQ AC-TID 06/27/19 06/27/19 History Allergies Allergy/AdvReac Type Severity Reaction Status Date / Time lithium Allergy Unknown Verified 06/27/19 07:55 Physical Exam Vitals: Vital Signs Temp Pulse Resp BP Pulse Ox 06/27/19 20:06 78 06/27/19 19:50 76 06/27/19 19:00 36.7 F L 75 17 109/64 95 06/27/19 18:30 77 20 123/56 95 06/27/19 18:00 98.4 F 80 15 122/48 90 L 06/27/19 17:30 77 18 119/46 96 06/27/19 17:00 98.1 F 75 16 114/55 95 06/27/19 16:30 75 19 116/53 95 06/27/19 16:02 72 06/27/19 16:00 97.0 F L 73 12 119/48 96 06/27/19 15:46 74 06/27/19 15:30 73 18 120/55 94 L 06/27/19 15:00 97.5 F L 76 15 132/50 94 L 06/27/19 14:30 78 18 136/55 94 L 06/27/19 14:00 98.1 F 75 19 141/52 93 L 06/27/19 13:30 75 20 140/55 94 L 06/27/19 13:00 98.4 F 71 16 126/45 94 L 06/27/19 12:45 73 25 H 126/46 95 06/27/19 12:36 73 06/27/19 12:30 71 25 H 116/57 95 06/27/19 12:15 76 26 H 115/49 94 L 06/27/19 12:00 99.0 F 71 24 118/52 96 06/27/19 11:45 72 23 123/58 96 06/27/19 11:30 70 20 124/53 96 06/27/19 11:15 70 26 H 123/52 97 06/27/19 11:00 98.6 F 70 20 115/49 98 06/27/19 10:45 70 24 92/49 97 06/27/19 10:30 74 23 121/50 98 06/27/19 10:15 72 26 H 103/62 97 06/27/19 10:00 98.6 F 74 27 H 136/58 98 06/27/19 09:45 77 26 H 152/60 97 06/27/19 09:30 74 26 H 73/43 96 06/27/19 09:15 74 27 H 105/53 95 06/27/19 09:00 98.2 F 77 25 H 116/52 95 06/27/19 08:45 75 25 H 122/55 96 06/27/19 08:30 97.5 F L 73 26 H 134/49 98 06/27/19 08:15 97.9 F 70 24 131/52 98 06/27/19 08:00 97.7 F 71 27 H 103/60 98 06/27/19 07:45 97.0 F L 71 30 H 86/48 96 06/27/19 07:30 96.3 F L 67 12 71/29 94 L 06/27/19 07:15 64 27 H 111/55 98 06/27/19 06:30 96.8 F L 63 25 H 124/58 100 06/27/19 06:20 96.8 F L 64 26 H 124/58 100 06/27/19 06:10 96.8 F L 62 25 H 126/59 100 06/27/19 06:00 96.6 F L 62 21 127/59 99 06/27/19 05:50 65 24 127/59 99 06/27/19 05:40 62 21 125/65 99 06/27/19 05:30 60 18 130/67 99 06/27/19 05:20 60 31 H 130/67 98 06/27/19 05:10 95.3 F L 61 27 H 122/56 99 06/27/19 05:00 95.2 F L 63 24 123/54 99 06/27/19 04:58 87.3 F L 63 22 123/54 100 06/27/19 04:50 60 23 82/49 99 06/27/19 04:40 94.6 F L 55 L 25 H 74/60 99 06/27/19 04:30 54 L 19 101/53 98 06/27/19 04:21 59 L 22 101/53 98 06/27/19 04:16 60 20 82/49 99 Intake and Output 06/27/19 06/27/19 06/27/19 06:59 14:59 22:59 Intake Total 5099.248 3002.519 Output Total 25 32 Balance 5074.248 2970.519 Intake: IV 44 30 Normal Saline Pressure 24 30 Bag Intake, IV Titration 5055.248 2942.519 Amount Levofloxacin 750Mg-D5w 100 Pmx 750 mg In Dextrose/ Water 1 150ml.bag @ 100 mls/hr IVPB Q24H [facility] Rx#: [id number] Norepinephrine 32 mg In 157.382 92.519 Sodium Chloride 0.9% 218 ml @ 0.05 MCG/KG/MIN 1. 758 mls/hr IV .Q24H [facility] Rx#:[id number] Piperacillin-Tazobactam 3 100 100 .375 gm In Sodium Chloride 0.9% 100 ml @ 25 mls/hr IVPB Q8HR [facility] Rx# :[id number] Propofol 1,000 mg In 25.617 Empty Bag 1 bag @ Titrate IV .Q0M [facility] Rx#: [id number] Propofol 1,000 mg In 22.249 Empty Bag 1 bag @ Titrate IV .Q0M [facility] Rx#: [id number] Sodium Chloride 0.9% 1, 500 000 ml @ 100 mls/hr IV . Q10H [facility] Rx#:[id number] Sodium Chloride 0.9% 1, 150 750 000 ml @ 150 mls/hr IV . Q6H40M [facility] Rx#:[id number] Sodium Chloride 0.9% 1, 3000 000 ml @ 999 mls/hr IV . Q1H1M ONE Rx#:[id number] Sodium Chloride 0.9% 1, 1000 2000 000 ml @ 999 mls/hr IV . Q1H1M [facility] Rx#:[id number] Tube Feeding 30 Output: Urine 25 32 Other: Voiding Method Indwelling Catheter Indwelling Catheter Weight 68.039 kg 66.5 kg ABP, PAP, CO, CI - Last 8 Hours Arterial Blood Pressure 122/51 Arterial Blood Pressure 126/51 Arterial Blood Pressure 137/54 Arterial Blood Pressure 106/41 Arterial Blood Pressure 126/43 Arterial Blood Pressure 118/42 Arterial Blood Pressure 119/41 Arterial Blood Pressure 121/40 Arterial Blood Pressure 91/53 Arterial Blood Pressure 0/0 Arterial Blood Pressure 120/43 Arterial Blood Pressure 129/41 Arterial Blood Pressure 123/42 On physical examination, patient appears comfortable in no apparent distress. HEAD: Normocephalic, atraumatic. EYES: No scleral icterus. No conjunctival injection. MOUTH: No lesions, tongue midline endotracheal tube implants. NECK: Trachea midline, no gross abnormalities. CHEST: Coarse respiratory noises in all lung key. HEART: S1-S2 appreciated. ABDOMEN: Soft, soft and nontender. Bowel sounds are positive. No organomegaly. No guarding or rigidity. EXTREMITIES: Minimal bilateral pedal edema. SKIN: No rashes, no jaundice. NEUROLOGIC: Intubated and sedated. Results CBC & Chem 7: 06/27/19 17:09 06/27/19 05:43 Labs: Abnormal Lab Results - Last 24 Hours (Table) 06/27/19 06/27/19 06/27/19 Range/Units 04:58 05:43 05:43 WBC 0.2 L* (3.8-10.6) k/uL RBC 2.66 L (4.30-5.90) m/uL Hgb 8.9 L (13.0-17.5) gm/dL Hct 26.6 L (39.0-53.0) % MCV (80.0-100.0) fL RDW 19.1 H (11.5-15.5) % Plt Count 70 L (150-450) k/uL APTT (22.0-30.0) sec ABG pH 7.28 L (7.35-7.45) ABG pCO2 46 H (35-45) mmHg VBG pCO2 (37-51) mmHg VBG HCO3 (24-28) mmol/L Chloride 116 H (98-107) mmol/L Carbon Dioxide 20 L (22-30) mmol/L BUN 37 H (9-20) mg/dL Creatinine 1.61 H (0.66-1.25) mg/dL Glucose 120 H (74-99) mg/dL POC Glucose (mg/dL) (75-99) mg/dL Calcium 7.3 L (8.4-10.2) mg/dL Phosphorus 4.8 H (2.5-4.5) mg/dL Total Protein 4.2 L (6.3-8.2) g/dL Albumin 1.9 L (3.5-5.0) g/dL 06/27/19 06/27/19 06/27/19 Range/Units 05:43 05:43 07:26 WBC (3.8-10.6) k/uL RBC (4.30-5.90) m/uL Hgb (13.0-17.5) gm/dL Hct (39.0-53.0) % MCV (80.0-100.0) fL RDW (11.5-15.5) % Plt Count (150-450) k/uL APTT 32.4 H (22.0-30.0) sec ABG pH (7.35-7.45) ABG pCO2 (35-45) mmHg VBG pCO2 36 L (37-51) mmHg VBG HCO3 20 L (24-28) mmol/L Chloride (98-107) mmol/L Carbon Dioxide (22-30) mmol/L BUN (9-20) mg/dL Creatinine (0.66-1.25) mg/dL Glucose (74-99) mg/dL POC Glucose (mg/dL) 119 H (75-99) mg/dL Calcium (8.4-10.2) mg/dL Phosphorus (2.5-4.5) mg/dL Total Protein (6.3-8.2) g/dL Albumin (3.5-5.0) g/dL 06/27/19 06/27/19 Range/Units 12:07 17:09 WBC 0.6 L* (3.8-10.6) k/uL RBC 2.84 L (4.30-5.90) m/uL Hgb 9.5 L (13.0-17.5) gm/dL Hct 29.0 L (39.0-53.0) % MCV 102.1 H (80.0-100.0) fL RDW 18.9 H (11.5-15.5) % Plt Count 99 L (150-450) k/uL APTT (22.0-30.0) sec ABG pH (7.35-7.45) ABG pCO2 (35-45) mmHg VBG pCO2 (37-51) mmHg VBG HCO3 (24-28) mmol/L Chloride (98-107) mmol/L Carbon Dioxide (22-30) mmol/L BUN (9-20) mg/dL Creatinine (0.66-1.25) mg/dL Glucose (74-99) mg/dL POC Glucose (mg/dL) 105 H (75-99) mg/dL Calcium (8.4-10.2) mg/dL Phosphorus (2.5-4.5) mg/dL Total Protein (6.3-8.2) g/dL Albumin (3.5-5.0) g/dL Microbiology - Last 24 Hours (Table) 06/27/19 04:46 Gram Stain - Preliminary Sputum Sputum Culture - Preliminary Chest x-ray: report reviewed (Findings of increased respiratory edema on chest x-ray) Assessment and Plan (1) GI bleed Narrative/Plan: 79-year-old male with multiple medical comorbidities was transferred from outside hospital where he initially presented due to concerns over coffee-ground emesis and is currently intubated on broad-spectrum antibiotic therapy proceeding mechanical ventilation and sedation due to concerns over aspiration. Hemoglobin is stable status post transfusion with the patient also has a history of macrocytic anemia and pancytopenia. No further signs or symptoms of GI bleeding at this time with minimal output from NG tube. Continue supportive care. Current Visit: Yes Status: Acute Code(s): K92.2 - GASTROINTESTINAL HEMORRHAGE, UNSPECIFIED SNOMED Code(s): 20103808 (2) Aspiration pneumonia Current Visit: Yes Status: Acute Code(s): J69.0 - PNEUMONITIS DUE TO INHALATION OF FOOD AND VOMIT SNOMED Code(s): 714326573 (3) Pancytopenia Current Visit: Yes Status: Acute Code(s): D61.818 - OTHER PANCYTOPENIA SNOMED Code(s): 266930975 (4) Chronic pancreatitis Narrative/Plan: Prior ERCP with stent placement with findings concerning for pseudocyst and evidence of chronic pancreatitis. Current Visit: No Status: Acute Code(s): K86.1 - OTHER CHRONIC PANCREATITIS SNOMED Code(s): 090598531 (5) Elevated liver enzymes Narrative/Plan: Antimitochondrial antibody positive with biopsies suggestive of venous congestion felt to be secondary to cardiac or vascular etiology, reviewed by pathologist as to [facility] with no evidence of primary biliary cholangitis on biopsy. Current Visit: No Status: Acute Code(s): R74.8 - ABNORMAL LEVELS OF OTHER SERUM ENZYMES SNOMED Code(s): 961205615 (6) History of biliary stent insertion Current Visit: No Status: Acute Code(s): Z98.890 - OTHER SPECIFIED POSTPROCEDURAL STATES SNOMED Code(s): 216874933 Plan: Supportive care Nothing by mouth Protonix increased to twice daily IV Appreciate recommendations from infectious disease and critical care service Continue broad-spectrum antibiotic therapy Continue to monitor CBC, CMP and other labs No plans for endoscopic evaluation at this time the patient is a no further signs or symptoms of GI bleeding and will continue on acid suppression therapy with plans to reevaluate if further evidence of bleeding or fall in hemoglobin Thank you for allowing us to participate in the care of the patient we will continue to follow closely during his hospitalization
[2019-06-27] MEDS: PANTOPRAZOLE 40 MG/10 ML VIAL IV SCH (21:15)
[2019-06-27] MEDS: MAGNESIUM SULFATE-D5W PMX 1 GM in DEXTROSE/WATER 1 100ML.BAG IVPB SCH ×2 (21:16→22:49)
--- NOTE | 2019-06-27 21:49 | P.CONS ---
History of Present Illness - Reason for Consult Consult date: 06/27/19 Pancytopenia - History of Present Illness The patient is a 79-year-old white male with multiple medical problems. The patient was admitted this time from [facility], with hypothermia with temperature 85F, low heart rate in the 40s, systolic blood pressure in the 70s, occurring after fairly acute onset of weakness and vomiting of coffee-grounds. The patient had to be intubated and was transferred to the ICU where he is been placed on pressors, IV fluids and antibiotics. On admission it was noted that his WBC was 0.2, with hemoglobin in the 8 range and platelets of 70,000. Consult was therefore placed for further evaluation and recommendations No history could be obtained from the patient was indicated. It was obtained from multiple recurrent in the EMR. The patient has had several admissions, since even 03/11. He has a history of chronic elevation of liver enzymes with imaging initially indicating possible liver mass. MRI in 04/11-year-old out same. The patient had an attempted ERCP locally which was unsuccessful being transferred to [facility] unsuccessful stent placement. He also underwent a liver core biopsy in 04/11 for suspicion of primary be very cirrhosis. However consult at the [facility] rule out the same and etiology was felt to be due to venous outflow o bstruction versus increased venous pressure such as due to cardiac compromise. The patient was admitted last month for sepsis, pneumonia and cellulitis. The patient is also on Depakote. Review of multiple labs show development of pancytopenia, though WBC has been in the safe range, during his previous admission, in association with acute illness, followed by improvement presumably once the acute situation improved. For reference WBC on 06/20/19 had improved into the 3000 range, versus 2000 range during his admission in 06/11. There was no prior history of underlying hematologic disorder. He does have a history of bladder cancer presumably superficial. He also has a history of being developmentally challenged, with markedly reduced intellectual age. In addition he has extensive coronary artery disease Review of Systems obtained from EMR ROS unobtainable: due to endotracheal tube Constitutional: Reports fatigue, Reports poor appetite, Reports weakness, Reports weight loss Eyes: denies blurred vision, denies pain Ears: deny: decreased hearing, ear discharge, earache, tinnitus Ears, nose, mouth and throat: Denies headache, Denies sore throat Cardiovascular: Reports as per HPI, Reports shortness of breath Respiratory: Reports congestion, Reports dyspnea Gastrointestinal: Reports coffee ground emesis, Reports nausea, Reports vomiting Genitourinary: Reports as per HPI Musculoskeletal: Reports muscle weakness Integumentary: Denies pruritus, Denies rash Neurological: Reports as per HPI, Reports weakness Psychiatric: Reports as per HPI (developmentally challenged) Endocrine: Reports fatigue, Reports weight change Hematologic/Lymphatic: Reports as per HPI Past Medical History Past Medical History: Cancer, Diabetes Mellitus, Hyperlipidemia, Hypertension, Myocardial Infarction ([place]) Additional Past Medical History / Comment(s): Mental handicap "now he is the age of a 5year old (found out about 5 years ago), History of aspiration with pneumonia, chronic systolic heart failure, diabetes mellitus type 2, chronic stage III kidney disease, chronic pancytopenia, chronic liver cirrhosis with previous biopsies indicating cholestatic, coronary artery disease and previous [place], , coronary artery disease with previous coronary stents, history of bladder tumor, Last Myocardial Infarction Date:: 2009 History of Any Multi-Drug Resistant Organisms: None Reported Past Surgical History: Heart Catheterization With Stent Additional Past Surgical History / Comment(s): bladder tumors removed; Cataract R eye 2017, stent place in pancreatic duct Past Anesthesia/Blood Transfusion Reactions: No Reported Reaction Date of Last Stent Placement:: 2009 Past Psychological History: No Psychological Hx Reported Additional Psychological History / Comment(s): mentally handicapped (age is 5 years old) Smoking Status: Former smoker Past Alcohol Use History: None Reported Additional Past Alcohol Use History / Comment(s): quit smoking 2009,1ppd Past Drug Use History: None Reported - Past Family History Father Family Medical History: Cancer Additional Family Medical History / Comment(s): lung Mother Family Medical History: COPD Additional Family Medical History / Comment(s): bowel surgeries Brother(s) Family Medical History: Diabetes Mellitus, Hyperlipidemia Additional Family Medical History / Comment(s): Dr Menon is his PCP & [facility] Sister(s) Family Medical History: Cancer Additional Family Medical History / Comment(s): Lung CA with part of her lung removed Medications and Allergies Home Medications Medication Instructions Recorded Confirmed Type Calcitriol [Rocaltrol] 0.25 mcg PO Q48H 12/29/16 06/27/19 History Cholecalciferol [Vitamin D3 (25 2,000 unit PO DAILY@0800 12/29/16 06/27/19 History Mcg = 1000 Iu)] Ferrous Sulfate [Iron (65 MG 325 mg PO DAILY 12/29/16 06/27/19 History Elemental)] Tamsulosin [Flomax] 0.4 mg PO DAILY 12/29/16 06/27/19 History Divalproex Sodium [Divalproex 1,000 mg PO DAILY 03/19/19 06/27/19 History Sodium ER] Polyethylene Glycol 3350 [Miralax] 17 gm PO DAILY PRN 03/19/19 06/27/19 History Sennosides [Senna] 17.2 mg PO HS 03/19/19 06/27/19 History Albuterol Sulfate [Proair Hfa] 2 puff INHALATION RT-TID@,,05/28/19 06/27/19 History L.acidoph,Paracasei, B.lactis 1 cap PO DAILY 05/28/19 06/27/19 History [Probiotic] Pantoprazole [Protonix] 40 mg PO DAILY 05/28/19 06/27/19 History Ursodiol 300 mg PO AC-TID 05/28/19 06/27/19 History Levothyroxine Sodium [Synthroid] 50 mcg PO DAILY@0600 06/11/19 06/27/19 History Acetaminophen Tab [Tylenol] 650 mg PO Q4HR PRN tab 06/21/19 06/27/19 Rx NIFEdipine XL [Procardia XL] 60 mg PO DAILY@0800 tab.er.24 06/21/19 06/27/19 Rx Darbepoetin Robby [Aranesp] 40 mcg SQ WE 06/27/19 06/27/19 History Fluconazole [Diflucan] 100 mg PO HS 06/27/19 06/27/19 History Insulin Aspart [NovoLOG Flexpen] 2 units SQ HS 06/27/19 06/27/19 History Insulin Aspart [NovoLOG Flexpen] 4 unit SQ AC-TID 06/27/19 06/27/19 History Allergies Allergy/AdvReac Type Severity Reaction Status Date / Time lithium Allergy Unknown Verified 06/27/19 07:55 Physical Exam Vitals: Vital Signs Temp Pulse Resp BP Pulse Ox 06/27/19 20:06 78 06/27/19 19:50 76 06/27/19 19:00 36.7 F L 75 17 109/64 95 06/27/19 18:30 77 20 123/56 95 06/27/19 18:00 98.4 F 80 15 122/48 90 L 06/27/19 17:30 77 18 119/46 96 06/27/19 17:00 98.1 F 75 16 114/55 95 06/27/19 16:30 75 19 116/53 95 06/27/19 16:02 72 06/27/19 16:00 97.0 F L 73 12 119/48 96 06/27/19 15:46 74 06/27/19 15:30 73 18 120/55 94 L 06/27/19 15:00 97.5 F L 76 15 132/50 94 L 06/27/19 14:30 78 18 136/55 94 L 06/27/19 14:00 98.1 F 75 19 141/52 93 L 06/27/19 13:30 75 20 140/55 94 L 06/27/19 13:00 98.4 F 71 16 126/45 94 L 06/27/19 12:45 73 25 H 126/46 95 06/27/19 12:36 73 06/27/19 12:30 71 25 H 116/57 95 06/27/19 12:15 76 26 H 115/49 94 L 06/27/19 12:00 99.0 F 71 24 118/52 96 06/27/19 11:45 72 23 123/58 96 06/27/19 11:30 70 20 124/53 96 06/27/19 11:15 70 26 H 123/52 97 06/27/19 11:00 98.6 F 70 20 115/49 98 06/27/19 10:45 70 24 92/49 97 06/27/19 10:30 74 23 121/50 98 06/27/19 10:15 72 26 H 103/62 97 06/27/19 10:00 98.6 F 74 27 H 136/58 98 06/27/19 09:45 77 26 H 152/60 97 06/27/19 09:30 74 26 H 73/43 96 06/27/19 09:15 74 27 H 105/53 95 06/27/19 09:00 98.2 F 77 25 H 116/52 95 06/27/19 08:45 75 25 H 122/55 96 06/27/19 08:30 97.5 F L 73 26 H 134/49 98 06/27/19 08:15 97.9 F 70 24 131/52 98 06/27/19 08:00 97.7 F 71 27 H 103/60 98 06/27/19 07:45 97.0 F L 71 30 H 86/48 96 06/27/19 07:30 96.3 F L 67 12 71/29 94 L 06/27/19 07:15 64 27 H 111/55 98 06/27/19 06:30 96.8 F L 63 25 H 124/58 100 06/27/19 06:20 96.8 F L 64 26 H 124/58 100 06/27/19 06:10 96.8 F L 62 25 H 126/59 100 06/27/19 06:00 96.6 F L 62 21 127/59 99 06/27/19 05:50 65 24 127/59 99 06/27/19 05:40 62 21 125/65 99 06/27/19 05:30 60 18 130/67 99 06/27/19 05:20 60 31 H 130/67 98 06/27/19 05:10 95.3 F L 61 27 H 122/56 99 06/27/19 05:00 95.2 F L 63 24 123/54 99 06/27/19 04:58 87.3 F L 63 22 123/54 100 06/27/19 04:50 60 23 82/49 99 06/27/19 04:40 94.6 F L 55 L 25 H 74/60 99 06/27/19 04:30 54 L 19 101/53 98 06/27/19 04:21 59 L 22 101/53 98 06/27/19 04:16 60 20 82/49 99 Intake and Output 06/27/19 06/27/19 06/27/19 06:59 14:59 22:59 Intake Total 5099.248 3002.519 Output Total 25 32 Balance 5074.248 2970.519 Intake: IV 44 30 Normal Saline Pressure 24 30 Bag Intake, IV Titration 5055.248 2942.519 Amount Levofloxacin 750Mg-D5w 100 Pmx 750 mg In Dextrose/ Water 1 150ml.bag @ 100 mls/hr IVPB Q24H [facility] Rx#: [id number] Norepinephrine 32 mg In 157.382 92.519 Sodium Chloride 0.9% 218 ml @ 0.05 MCG/KG/MIN 1. 758 mls/hr IV .Q24H [facility]AR Rx#:[id number] Piperacillin-Tazobactam 3 100 100 .375 gm In Sodium Chloride 0.9% 100 ml @ 25 mls/hr IVPB Q8HR [facility] Rx# :[id number] Propofol 1,000 mg In 25.617 Empty Bag 1 bag @ Titrate IV .Q0M [facility]AR Rx#: [id number] Propofol 1,000 mg In 22.249 Empty Bag 1 bag @ Titrate IV .Q0M [facility]AR Rx#: [id number] Sodium Chloride 0.9% 1, 500 000 ml @ 100 mls/hr IV . Q10H [facility] Rx#:[id number] Sodium Chloride 0.9% 1, 150 750 000 ml @ 150 mls/hr IV . Q6H40M [facility]AR Rx#:[id number] Sodium Chloride 0.9% 1, 3000 000 ml @ 999 mls/hr IV . Q1H1M ONE Rx#:[id number] Sodium Chloride 0.9% 1, 1000 2000 000 ml @ 999 mls/hr IV . Q1H1M [facility]AR Rx#:[id number] Tube Feeding 30 Output: Urine 25 32 Other: Voiding Method Indwelling Catheter Indwelling Catheter Weight 68.039 kg 66.5 kg ABP, PAP, CO, CI - Last 8 Hours Arterial Blood Pressure 122/51 Arterial Blood Pressure 126/51 Arterial Blood Pressure 137/54 Arterial Blood Pressure 106/41 Arterial Blood Pressure 126/43 Arterial Blood Pressure 118/42 Arterial Blood Pressure 119/41 Arterial Blood Pressure 121/40 Arterial Blood Pressure 91/53 Arterial Blood Pressure 0/0 Arterial Blood Pressure 120/43 sedated on Vent - Constitutional General appearance: no acute distress - EENT Eyes: PERRLA ENT: other (ET tube in situ) - Neck Neck: no lymphadenopathy Thyroid: bilateral: normal size - Respiratory Respiratory: bilateral: CTA - Cardiovascular Rhythm: regular Heart sounds: normal: S1, S2 - Gastrointestinal General gastrointestinal: decreased bowel sounds, hepatomegaly (uestionable, maximum once fingerbreadths below costal margin), soft - Integumentary Integumentary: normal - Neurologic sedated on vent Reflexes 1+ symmetric - Musculoskeletal sedated on vent Musculoskeletal: generalized weakness Results CBC & Chem 7: 06/27/19 17:09 06/27/19 05:43 Labs: Abnormal Lab Results - Last 24 Hours (Table) 06/27/19 06/27/19 06/27/19 Range/Units 04:58 05:43 05:43 WBC 0.2 L* (3.8-10.6) k/uL RBC 2.66 L (4.30-5.90) m/uL Hgb 8.9 L (13.0-17.5) gm/dL Hct 26.6 L (39.0-53.0) % MCV (80.0-100.0) fL RDW 19.1 H (11.5-15.5) % Plt Count 70 L (150-450) k/uL APTT (22.0-30.0) sec ABG pH 7.28 L (7.35-7.45) ABG pCO2 46 H (35-45) mmHg VBG pCO2 (37-51) mmHg VBG HCO3 (24-28) mmol/L Chloride 116 H (98-107) mmol/L Carbon Dioxide 20 L (22-30) mmol/L BUN 37 H (9-20) mg/dL Creatinine 1.61 H (0.66-1.25) mg/dL Glucose 120 H (74-99) mg/dL POC Glucose (mg/dL) (75-99) mg/dL Calcium 7.3 L (8.4-10.2) mg/dL Phosphorus 4.8 H (2.5-4.5) mg/dL Total Protein 4.2 L (6.3-8.2) g/dL Albumin 1.9 L (3.5-5.0) g/dL 06/27/19 06/27/19 06/27/19 Range/Units 05:43 05:43 07:26 WBC (3.8-10.6) k/uL RBC (4.30-5.90) m/uL Hgb (13.0-17.5) gm/dL Hct (39.0-53.0) % MCV (80.0-100.0) fL RDW (11.5-15.5) % Plt Count (150-450) k/uL APTT 32.4 H (22.0-30.0) sec ABG pH (7.35-7.45) ABG pCO2 (35-45) mmHg VBG pCO2 36 L (37-51) mmHg VBG HCO3 20 L (24-28) mmol/L Chloride (98-107) mmol/L Carbon Dioxide (22-30) mmol/L BUN (9-20) mg/dL Creatinine (0.66-1.25) mg/dL Glucose (74-99) mg/dL POC Glucose (mg/dL) 119 H (75-99) mg/dL Calcium (8.4-10.2) mg/dL Phosphorus (2.5-4.5) mg/dL Total Protein (6.3-8.2) g/dL Albumin (3.5-5.0) g/dL 06/27/19 06/27/19 Range/Units 12:07 17:09 WBC 0.6 L* (3.8-10.6) k/uL RBC 2.84 L (4.30-5.90) m/uL Hgb 9.5 L (13.0-17.5) gm/dL Hct 29.0 L (39.0-53.0) % MCV 102.1 H (80.0-100.0) fL RDW 18.9 H (11.5-15.5) % Plt Count 99 L (150-450) k/uL APTT (22.0-30.0) sec ABG pH (7.35-7.45) ABG pCO2 (35-45) mmHg VBG pCO2 (37-51) mmHg VBG HCO3 (24-28) mmol/L Chloride (98-107) mmol/L Carbon Dioxide (22-30) mmol/L BUN (9-20) mg/dL Creatinine (0.66-1.25) mg/dL Glucose (74-99) mg/dL POC Glucose (mg/dL) 105 H (75-99) mg/dL Calcium (8.4-10.2) mg/dL Phosphorus (2.5-4.5) mg/dL Total Protein (6.3-8.2) g/dL Albumin (3.5-5.0) g/dL Microbiology - Last 24 Hours (Table) 06/27/19 04:46 Gram Stain - Preliminary Sputum Sputum Culture - Preliminary Comments: echocardiogram results reviewed Pathology results reviewed Procedure note reviewed Chest x-ray: report reviewed CT scan - abdomen: report reviewed CT scan - pelvis: report reviewed US - abdomen: report reviewed MRI - abdomen: report reviewed Assessment and Plan (1) Pancytopenia Narrative/Plan: This is actually not a new finding for this patient. It has been present on previous admissions in association with his other acute illnesses, with improvement noted with resolution of the underlying problem. During this admission the degree of leukocytopenia has been more severe At this time the most likely etiology is underlying marrow compromise due to chronic liver disease, and/or Depakote effect. In addition there is also likely inflammatory suppression from his multiple recent medical events. - Recommend aggressive supportive treatment at this time. Patient has been started on filgrastim. Hemoglobin and platelets are in a safe range. Continue to monitor and transfuse for hemoglobin less than 7, and platelets less than 10 as long as there is no active bleeding - Pancytopenia workup will be ordered - Start folic acid 2 mg to counteract possible Depakote effect - I will also check DIC workup for the low platelets - Assuming above workup is negative, expectoration will be improvement of his counts to baseline as his acute situation improves. If not, then additional workup would be recommended Current Visit: Yes Status: Acute Code(s): D61.818 - OTHER PANCYTOPENIA SNOMED Code(s): 403985442 (2) Sepsis Narrative/Plan: The patient had presented with multiple future the same, including hypotension and hypothermia, along with acute respiratory failure. He is being aggressively supported at this time with ventilator assisted bleeding, IV fluids, pressors and antibiotic. Continue management per [facility] and other physicians Current Visit: Yes Status: Acute Code(s): A41.9 - SEPSIS, UNSPECIFIED ORGANISM SNOMED Code(s): 03214864 Plan: Therefore to the admitting service and other consultants for management of his other medical problems
[2019-06-28 00:02] LABS: Glucose,Whole Blood 70 mg/dL (75-99)
[2019-06-28] MEDS: INSULIN ASPART (NovoLOG) 100 UNIT/ML VIAL SQ SCH ×3 (00:07→12:41)
[2019-06-28 00:51] LABS: Protein, Total 5.2 g/dL (6.2-8.2)
[2019-06-28 01:35] LABS: % Iron Saturation 4.69 (15.00-50.00); Ferritin 699.7 ng/mL (22.0-322.0)
[2019-06-28 02:46] LABS: Appearance,Urine Cloudy (Clear); Bacteria,Urine Rare /hpf; Bilirubin,Urine Negative (Negative); Blood,Urine Moderate (Negative); Budding Yeast,Urine Occasional /hpf; Color,Urine Yellow; Glucose,Urine (UA) Negative (Negative); Hyaline Casts,Urine 27 /lpf (0-2); Ketones,Urine Negative (Negative); Leukocyte Esterase,Urine Trace (Negative); Mucus,Urine Rare /hpf; Nitrite,Urine Negative (Negative); Protein,Urine 1+ (Negative); RBC,Urine 66 /hpf (0-5); Specific Gravity,Urine 1.016 (1.001-1.035); Squamous Epithelial Cell,Urine 1 /hpf (0-4); Urobilinogen,Urine <2.0 mg/dL (<2.0)
[2019-06-28] MEDS: SODIUM CHLORIDE 0.9% 1,000 ML IV SCH ×2 (04:43→09:40)
[2019-06-28] MEDS: NOREPINEPHRINE 32 MG in SODIUM CHLORIDE 0.9% 218 ML IV SCH ×2 (04:44→10:05)
[2019-06-28 04:58] LABS: ABG Base Excess -15.1 mmol/L; ABG HCO3 14 mmol/L (21-25); ABG Oxygen Saturation 97.6 % (94-97); ABG PCO2 46 mmHg (35-45); ABG PO2 127 mmHg (83-108); ABG TCO2 16 mmol/L (19-24)
[2019-06-28 05:03] LABS: ABG PH 7.11 (7.35-7.45)
[2019-06-28 05:03] LABS: Glucose,Whole Blood 61 mg/dL (75-99)
[2019-06-28 05:04] LABS: Allen Test Performed? no
[2019-06-28 05:35] LABS: Anisocytosis Slight; HCT 33.7 % (39.0-53.0); HGB 10.6 gm/dL (13.0-17.5); Hypochromasia Marked; MCHC 31.4 g/dL (31.0-37.0); MCV 104.9 fL (80.0-100.0); Macrocytosis Marked; Mean Platelet Volume 8.1; Poikilocytosis Moderate; RBC 3.22 m/uL (4.30-5.90); RDW 18.8 % (11.5-15.5)
[2019-06-28 05:40] LABS: Glucose,Whole Blood 62 mg/dL (75-99)
[2019-06-28 05:41] LABS: Ionized Calcium 4.6 mg/dL (4.5-5.3)
[2019-06-28 05:49] LABS: Albumin 1.9 g/dL (3.5-5.0); Calcium 6.7 mg/dL (8.4-10.2); Phosphorus 6.7 mg/dL (2.5-4.5); Total Bilirubin 0.3 mg/dL (0.2-1.3); Total Protein 4.3 g/dL (6.3-8.2)
[2019-06-28] MEDS ORDERED: DEXTROSE 10 % IN WATER 250 ML IV ONE (05:55)
[2019-06-28] MEDS ORDERED: LEVOTHYROXINE 50 MCG TAB PO SCH (06:00)
[2019-06-28 06:06] LABS: Glucose,Whole Blood 102 mg/dL (75-99)
--- NOTE | 2019-06-28 06:09 | PCN ---
PROCEDURE NOTE PREOPERATIVE DIAGNOSIS: Acute hypoxic respiratory failure. POSTOPERATIVE DIAGNOSIS: Acute bilateral pneumonia, consider aspiration. PROCEDURE: Flex. bronchoscopy and bronchoalveolar lavage of the right middle lobe. PROCEDURE: This procedure was done in the intensive care unit. The patient was already intubated on a mechanical ventilator. The patient was being oxygenated and the patient was given a dose of Nimbex 10 mg for paralysis and the patient was already maintained on propofol infusion for sedation. An adapter was attached to oral tracheal tube. Following that, a flexible bronchoscope was advanced into the oral tracheal tube. It was advanced to the lower trachea. The distal trachea was within normal limits in terms of structure. However, there was copious amount of thick purulent respiratory secretions that were dark beige in color. Therapeutic airway suctioning was done. Respiratory secretions were suctioned out from the distal trachea and bilateral mainstem bronchi. A full examination of the airway was done. The airway examination included distal trachea, bilateral mainstem bronchi, right upper lobe bronchus, bronchus intermedius, right middle lobe bronchus and right lower lobe bronchus along with various segments and sub- segments. Examination of left side included left mainstem bronchus, left upper lobe bronchus, left lower lobe bronchus along with various segments and sub- segments. There was some coffee-ground material in the posterior segment of the right upper lobe and the superior segment of the right lower lobe. As such, I suspected aspiration of gastric material. Ultimately, after clearing the patient's airway from all the secretions, the bronchoscope was wedged in the right middle lobe and the bronchioalveolar lavage was done. A total of 60 mL of fluid was infused and 25 mL was suctioned back without any difficulties. Bronchoscope was ultimately removed after doing a therapeutic airway suctioning. Procedure was terminated. No oxygen desaturations or hemodynamic changes during the procedure. MMODL / IJN: [id number] / MAR
--- NOTE | 2019-06-28 06:15 | PCN ---
PROCEDURE NOTE PROCEDURE: Insertion of an arterial line catheter. PREOPERATIVE DIAGNOSIS: Acute hypoxic respiratory failure/bilateral pneumonia. POSTOPERATIVE DIAGNOSIS: Acute hypoxic respiratory failure/bilateral pneumonia. ARTERIAL LINE PLACEMENT: Indications: Hemodynamic monitoring. A time-out was completed verifying correct patient, procedure, site, positioning, and implant(s) or special equipment if applicable. Aston's test was performed to ensure adequate perfusion. The patient's left wrist was prepped and draped in sterile fashion. 1% Lidocaine was used to anesthetize the area. An 18G Arrow arterial line was introduced into the left radial artery. The catheter was threaded over the guide wire and the needle was removed with appropriate pulsatile blood return. Blood loss was minimal. The catheter was then sutured in place to the skin and a sterile dressing applied. Perfusion to the extremity distal to the point of catheter insertion was checked and found to be adequate. The patient tolerated the procedure well and there were no complications. No bedside complications or bleeding. MMODL / IJN: [id number] /
[2019-06-28 06:36] LABS: Platelet Count 98 k/uL (150-450)
[2019-06-28] MEDS: URSODIOL 300 MG CAP PO SCH ×2 (06:53→14:00)
[2019-06-28] MEDS: ALBUTEROL NEBULIZED 2.5 MG/3 ML INHALATION SCH ×3 (07:07→15:21)
--- NOTE | 2019-06-28 07:51 | XR ---
EXAMINATION TYPE: XR chest 1V portable DATE OF EXAM: 06/28/2019 COMPARISON: Prior chest x-ray 06/27/2019 HISTORY: Intubated TECHNIQUE: Single frontal view of the chest is obtained. FINDINGS: Endotracheal tube, NG tube are overlying appropriate positions, distal tip of the NG tube not included on exam. Right-sided jugular central venous catheter shows the distal tip overlying the right atrium. There are overlying cardiac leads. There is no evident pneumothorax. Bibasilar increase d density is present, the left hemidiaphragm and right hemidiaphragm are obscured, there is blunting of the right costophrenic angle. Patient is rotated. Heart is obscured. Suspect bilateral airspace di sease has progressed. Aorta is dense and possibly ectatic. IMPRESSION: Correlate for congestive heart failure versus pneumonia, ARDS. Possible aortic aneurysm. There are likely pleural effusions.
[2019-06-28] MEDS ORDERED: CHOLECALCIFEROL 1,000 UNIT TAB PO SCH (08:00)
[2019-06-28 08:09] LABS: Band Neutrophils % 6 %; Lymphocytes # (M) 0.26 k/uL (1.0-4.8); Metamyelocytes # (M) 0.05 k/uL (0); Metamyelocytes % 4 %; Monocytes # (M) 0.05 k/uL (0-1.0); Myelocytes # (M) 0.02 k/uL (0); Myelocytes % 2 %; Neutrophils % (M) 62 %; Nucleated Red Blood Cells 9 /100 WBC (0-0); Total Cells Counted 100; WBC 1.2 k/uL (3.8-10.6)
[2019-06-28] MEDS: PROPOFOL 1,000 MG in EMPTY BAG 1 BAG IV SCH (08:13)
[2019-06-28] MEDS ORDERED: DIVALPROEX ER 500 MG TAB.ER.24H PO SCH (09:00)
[2019-06-28] MEDS ORDERED: FERROUS SULFATE 325 MG TAB PO SCH (09:00)
--- NOTE | 2019-06-28 09:27 | P.PN ---
Subjective Progress Note Date: 06/28/19 On today's evaluation of 06/28/2000 milligrams seeing this patient for a follow- up. This morning the patient is sedated with propofol at a dose of 25 g per KG per minute. The patient is was sedated. He is deeply sedated. He does not withdraw to deep painful stimulation and the dose needs to be adjusted. Meanwhile, the patient is on a mechanical ventilator. This morning, he was assist-control mode rate of 12 with a tidal volume of 450 and FiO2 of 70% with a PEEP of 5. Morning blood gases showed a pH of 7.11 with a pCO2 of 46 and pO2 of 127 and this is consistent with severe respiratory and metabolic acidosis. The chest x-ray from today showed diffuse bilateral pulmonary infiltrates compatible to yesterday. ET tube is in a good location. NG tube is in a good location. There is a right IJ triple-lumen catheter in place. There is no evidence of any pneumonias. There is diffuse bilateral pulmonary infiltrates left more than right. Noted the patient underwent a bronchoscopy yesterday. Therapeutic airway suctioning was done. The bronchioloalveolar lavage of the right middle lobe was collected and the cultures still negative for now. I strongly suspect aspiration as be found some coffee-ground material within the patient's lung at a time of the bronchoscope. He is not having any GI bleeding. His hemoglobin is stable for now at 10.6. The patient is currently receiving enteral feeding for nutritional support and the patient is receiving vital high protein which is running at the rate of 20 mL an hour. No abdominal distention. No significant residuals. The patient was seen by infectious disease. I've ordered to start this patient on Zosyn and Levaquin dose was adjusted. The patient was given filgrastim and the white cell count is improved slightly is up to 1.2. Platelet counts remain above 50,000 and this morning it is at 90 8K and a hemoglobin is at 10.6. All of the cultures are negative thus far. The patient remains on high-dose pressors and norepinephrine infusion is running at 0.76 g per KG per minute. He was aggressively resuscitated with IV fluids. The patient was given a total of 6-1/2 L yesterday and the CVP is up to 10. The neck fluid balance for yesterday has been approximately 10 L positive. The patient has been aggressively resuscitated IV fluids. Echocardiogram from recent hospitalization showed an ejection fraction of 45% and the patient had only a mild component of CHF. A folic acid was started regarding his chronic Depakote use. DIC workup has also been ordered. The patient was seen by hematology oncology and infectio us disease. Objective - Vital Signs Vital signs: Vital Signs Temp 98.4 F 06/28/19 08:00 Pulse 74 06/28/19 09:00 Resp 12 06/28/19 09:00 BP 94/55 06/28/19 06:15 Pulse Ox 96 06/28/19 09:00 Intake & Output 06/27/19 06/28/19 06/28/19 18:59 06:59 18:59 Intake Total 7935.767 2701.988 765.410 Output Total 52 45 13 Balance 7883.767 2656.988 752.410 Weight 66.5 kg Intake: IV 68 2021 568 Magnesium Sulfate-D5w Pmx 200 1 gm In Dextrose/Water 1 100ml.bag @ 100 mls/hr IVPB Q1H [facility] Rx#: [id number] Normal Saline Pressure 48 72 18 Bag Piperacillin-Tazobactam 3 100 100 .375 gm In Sodium Chloride 0.9% 100 ml @ 25 mls/hr IVPB Q8HR [facility] Rx# :[id number] Sodium Chloride 0.9% 1, 1650 450 000 ml @ 150 mls/hr IV . Q6H40M [facility] Rx#:[id number] Intake, IV Titration 7847.767 529.988 107.410 Amount Levofloxacin 750Mg-D5w 100 Pmx 750 mg In Dextrose/ Water 1 150ml.bag @ 100 mls/hr IVPB Q24H [facility] Rx#: [id number] Norepinephrine 32 mg In 249.901 292.235 11.133 Sodium Chloride 0.9% 218 ml @ 0.05 MCG/KG/MIN 1. 758 mls/hr IV .Q24H [facility] Rx#:[id number] Piperacillin-Tazobactam 3 200 .375 gm In Sodium Chloride 0.9% 100 ml @ 25 mls/hr IVPB Q8HR [facility] Rx# :[id number] Propofol 1,000 mg In 25.617 Empty Bag 1 bag @ Titrate IV .Q0M [facility] Rx#: [id number] Propofol 1,000 mg In 22.249 87.753 96.277 Empty Bag 1 bag @ Titrate IV .Q0M [facility] Rx#: [id number] Sodium Chloride 0.9% 1, 500 000 ml @ 100 mls/hr IV . Q10H [facility] Rx#:[id number] Sodium Chloride 0.9% 1, 750 150 000 ml @ 150 mls/hr IV . Q6H40M [facility] Rx#:[id number] Sodium Chloride 0.9% 1, 3000 000 ml @ 999 mls/hr IV . Q1H1M [facility] Rx#:[id number] Sodium Chloride 0.9% 1, 3000 000 ml @ 999 mls/hr IV . Q1H1M [facility] Rx#:[id number] Tube Feeding 20 90 60 Other 60 30 Output: Urine 52 45 13 Other: Voiding Method Indwelling Catheter Indwelling Catheter ABP, PAP, CO, CI - Last Documented Arterial Blood Pressure 118/46 - Exam GENERAL EXAM: Patient is intubated on the mechanical ventilator, comfortable sedated with propofol. HEAD: Normocephalic/atraumatic. Orogastric and orotracheal tube are both in place. EYES: Normal reaction of pupils, equal size. Conjunctiva pink, sclera white. NOSE: Clear with pink turbinates. THROAT: No erythema or exudates. NECK: No masses, no JVD, no thyroid enlargement, no adenopathy. CHEST: No chest wall deformity. Symmetrical expansion. LUNGS: Equal air entry with bilateral lower lobe crackles over posterior lower bases CVS: Regular rate and rhythm, normal S1 and S2, no gallops, no murmurs, no rubs ABDOMEN: Soft, nontender. No hepatosplenomegaly, normal bowel sounds, no guarding or rigidity. EXTREMITIES: No clubbing, no edema, no cyanosis, 2+ pulses and upper and lower extremities. MUSCULOSKELETAL: Muscle strength and tone normal. SPINE: No scoliosis or deformity SKIN: Examination of the skin revealed no evidence of significant rashes, suspicious appearing nevi or other concerning lesions. CENTRAL NERVOUS SYSTEM: Sedated. We will dose to painful stimulation all 4 extremities. The rest of neurologic exam is nonfocal. Pupils are equal and reactive to light. No facial asymmetry. PSYCHIATRIC: Inactive unable to assess due to sedation. - Labs CBC & Chem 7: 06/28/19 05:00 06/28/19 05:00 Labs: Abnormal Lab Results - Last 24 Hours (Table) 06/27/19 06/27/19 06/27/19 Range/Units 12:07 17:09 17:09 WBC 0.6 L* (3.8-10.6) k/uL RBC 2.84 L (4.30-5.90) m/uL Hgb 9.5 L (13.0-17.5) gm/dL Hct 29.0 L (39.0-53.0) % MCV 102.1 H (80.0-100.0) fL RDW 18.9 H (11.5-15.5) % Plt Count 99 L (150-450) k/uL Neutrophils # (Manual) (1.3-7.7) k/uL Lymphocytes # (Manual) (1.0-4.8) k/uL Metamyelocytes # (Man) (0) k/uL Myelocytes # (Manual) (0) k/uL Nucleated RBCs (0-0) /100 WBC Macrocytosis ABG pH (7.35-7.45) ABG pCO2 (35-45) mmHg ABG pO2 (83-108) mmHg ABG HCO3 (21-25) mmol/L ABG Total CO2 (19-24) mmol/L ABG O2 Saturation (94-97) % Chloride (98-107) mmol/L Carbon Dioxide (22-30) mmol/L BUN (9-20) mg/dL Creatinine (0.66-1.25) mg/dL Glucose (74-99) mg/dL POC Glucose (mg/dL) 105 H (75-99) mg/dL Calcium (8.4-10.2) mg/dL Phosphorus (2.5-4.5) mg/dL Iron 9 L (65-175) ug/dL TIBC 192 L (228-460) ug/dL % Saturation 4.69 L (15.00-50.00) Ferritin 699.7 H (22.0-322.0) ng/mL Total Protein (6.3-8.2) g/dL Total Protein (PEP) (6.2-8.2) g/dL Albumin (3.5-5.0) g/dL Vitamin B12 3425.0 H (200.0-944.0) pg/mL Urine Protein (Negative) Urine Blood (Negative) Ur Leukocyte Esterase (Negative) Urine RBC (0-5) /hpf Urine WBC (0-5) /hpf Urine Bacteria (None) /hpf Hyaline Casts (0-2) /lpf Urine Mucus (None) /hpf Urine Yeast (Budding) (None) /hpf 06/27/19 06/27/19 06/28/19 Range/Units 17:09 23:00 00:01 WBC (3.8-10.6) k/uL RBC (4.30-5.90) m/uL Hgb (13.0-17.5) gm/dL Hct (39.0-53.0) % MCV (80.0-100.0) fL RDW (11.5-15.5) % Plt Count (150-450) k/uL Neutrophils # (Manual) (1.3-7.7) k/uL Lymphocytes # (Manual) (1.0-4.8) k/uL Metamyelocytes # (Man) (0) k/uL Myelocytes # (Manual) (0) k/uL Nucleated RBCs (0-0) /100 WBC Macrocytosis ABG pH (7.35-7.45) ABG pCO2 (35-45) mmHg ABG pO2 (83-108) mmHg ABG HCO3 (21-25) mmol/L ABG Total CO2 (19-24) mmol/L ABG O2 Saturation (94-97) % Chloride (98-107) mmol/L Carbon Dioxide (22-30) mmol/L BUN (9-20) mg/dL Creatinine (0.66-1.25) mg/dL Glucose (74-99) mg/dL POC Glucose (mg/dL) 70 L (75-99) mg/dL Calcium (8.4-10.2) mg/dL Phosphorus (2.5-4.5) mg/dL Iron (65-175) ug/dL TIBC (228-460) ug/dL % Saturation (15.00-50.00) Ferritin (22.0-322.0) ng/mL Total Protein (6.3-8.2) g/dL Total Protein (PEP) 5.2 L (6.2-8.2) g/dL Albumin (3.5-5.0) g/dL Vitamin B12 (200.0-944.0) pg/mL Urine Protein 1+ H (Negative) Urine Blood Moderate H (Negative) Ur Leukocyte Esterase Trace H (Negative) Urine RBC 66 H (0-5) /hpf Urine WBC 19 H (0-5) /hpf Urine Bacteria Rare H (None) /hpf Hyaline Casts 27 H (0-2) /lpf Urine Mucus Rare H (None) /hpf Urine Yeast (Budding) Occasional H (None) /hpf 06/28/19 06/28/19 06/28/19 Range/Units 04:56 05:00 05:00 WBC 1.2 L* (3.8-10.6) k/uL RBC 3.22 L (4.30-5.90) m/uL Hgb 10.6 L (13.0-17.5) gm/dL Hct 33.7 L (39.0-53.0) % MCV 104.9 H (80.0-100.0) fL RDW 18.8 H (11.5-15.5) % Plt Count 98 L (150-450) k/uL Neutrophils # (Manual) 0.80 L (1.3-7.7) k/uL Lymphocytes # (Manual) 0.26 L (1.0-4.8) k/uL Metamyelocytes # (Man) 0.05 H (0) k/uL Myelocytes # (Manual) 0.02 H (0) k/uL Nucleated RBCs 9 H (0-0) /100 WBC Macrocytosis Marked A ABG pH 7.11 L* (7.35-7.45) ABG pCO2 46 H (35-45) mmHg ABG pO2 127 H (83-108) mmHg ABG HCO3 14 L (21-25) mmol/L ABG Total CO2 16 L (19-24) mmol/L ABG O2 Saturation 97.6 H (94-97) % Chloride 119 H (98-107) mmol/L Carbon Dioxide 16 L (22-30) mmol/L BUN 38 H (9-20) mg/dL Creatinine 2.29 H (0.66-1.25) mg/dL Glucose 58 L (74-99) mg/dL POC Glucose (mg/dL) (75-99) mg/dL Calcium 6.7 L (8.4-10.2) mg/dL Phosphorus 6.7 H (2.5-4.5) mg/dL Iron (65-175) ug/dL TIBC (228-460) ug/dL % Saturation (15.00-50.00) Ferritin (22.0-322.0) ng/mL Total Protein 4.3 L (6.3-8.2) g/dL Total Protein (PEP) (6.2-8.2) g/dL Albumin 1.9 L (3.5-5.0) g/dL Vitamin B12 (200.0-944.0) pg/mL Urine Protein (Negative) Urine Blood (Negative) Ur Leukocyte Esterase (Negative) Urine RBC (0-5) /hpf Urine WBC (0-5) /hpf Urine Bacteria (None) /hpf Hyaline Casts (0-2) /lpf Urine Mucus (None) /hpf Urine Yeast (Budding) (None) /hpf 06/28/19 06/28/19 06/28/19 Range/Units 05:01 05:38 06:05 WBC (3.8-10.6) k/uL RBC (4.30-5.90) m/uL Hgb (13.0-17.5) gm/dL Hct (39.0-53.0) % MCV (80.0-100.0) fL RDW (11.5-15.5) % Plt Count (150-450) k/uL Neutrophils # (Manual) (1.3-7.7) k/uL Lymphocytes # (Manual) (1.0-4.8) k/uL Metamyelocytes # (Man) (0) k/uL Myelocytes # (Manual) (0) k/uL Nucleated RBCs (0-0) /100 WBC Macrocytosis ABG pH (7.35-7.45) ABG pCO2 (35-45) mmHg ABG pO2 (83-108) mmHg ABG HCO3 (21-25) mmol/L ABG Total CO2 (19-24) mmol/L ABG O2 Saturation (94-97) % Chloride (98-107) mmol/L Carbon Dioxide (22-30) mmol/L BUN (9-20) mg/dL Creatinine (0.66-1.25) mg/dL Glucose (74-99) mg/dL POC Glucose (mg/dL) 61 L 62 L 102 H (75-99) mg/dL Calcium (8.4-10.2) mg/dL Phosphorus (2.5-4.5) mg/dL Iron (65-175) ug/dL TIBC (228-460) ug/dL % Saturation (15.00-50.00) Ferritin (22.0-322.0) ng/mL Total Protein (6.3-8.2) g/dL Total Protein (PEP) (6.2-8.2) g/dL Albumin (3.5-5.0) g/dL Vitamin B12 (200.0-944.0) pg/mL Urine Protein (Negative) Urine Blood (Negative) Ur Leukocyte Esterase (Negative) Urine RBC (0-5) /hpf Urine WBC (0-5) /hpf Urine Bacteria (None) /hpf Hyaline Casts (0-2) /lpf Urine Mucus (None) /hpf Urine Yeast (Budding) (None) /hpf Microbiology - Last 24 Hours (Table) 06/27/19 05:55 Blood Culture - Preliminary Blood No Growth after 24 hours 06/27/19 12:13 Gram Stain - Preliminary Bronchial Washings - Right Bronchial Washings Culture - Preliminary 06/27/19 12:13 Acid Fast Bacilli Culture - Preliminary Bronchial Washings - Right 06/27/19 12:13 Fungal Culture - Preliminary Bronchial Washings - Right 06/27/19 04:46 Gram Stain - Preliminary Sputum Sputum Culture - Preliminary Assessment and Plan Plan: 1 acute hypoxic respiratory failure with diffuse bilateral patchy infiltrates/pneumonia most likely secondary to aspiration, cannot rule out underlying component of ARDS. Issues chest x-ray remains unchanged and the patient has dense bilateral pulmonary infiltrates consistent with bilateral pneumonia. Bronchoscopy and lavage was done and the cultures still pending for now., 2 acute ventilator-dependent respiratory failure secondary to above, the blood gas shows a component of respiratory and metabolic acidosis and the necessity ventilator changes were done 3 aspiration of coffee ground material, consider upper GI bleed.The patient was seen by GI. No plans for endoscopy for today. Patient remains on IV Protonix. Hemoglobin is stable. 4 suspect upper GI bleeding as the patient presented with coffee-ground emesis and subsequent aspiration. Hemoglobin was low at the other facility and the patient got transfused with a total of 2 units of packed RBC and the current hemoglobin is above 8 5 coronary artery disease with previous DE 6 hypotension, acute, most likely septic in nature although a component of hypovolemic hypotension cannot be completely excluded . The hypovolemic component has been resuscitated aggressively and the patient has been in a positive fluid balance and his been in a positive fluid balance of 10 L compared to yesterday and the patient CVP is up to 10. Urine output is low. Creatinine is up to 2.3 consistent with an acute kidney injury. Remains on high-dose press ors for now and norepinephrine infusion is running at 0.76 kg per KG per minute. 7 acute on chronic anemia, consider blood loss anemia, post transfusion with packed RBCs 8 chronic systolic heart failure , with an ejection fraction of 45-50% with segmental wall motion abnormalities based on echocardiogram that was done in April 2019 9 hypertension 10 hyperlipidemia 11 diabetes mellitus 12 bladder cancer 13 history of liver cirrhosis, previous liver biopsy indicating Patchy sinusoidal dilatation with perisinusoidal fibrosis, suggestive of chronic venous outflow obstruction. No significant inflammation or evidence of primary biliary cholangitis. Mild periportal fibrosis 14 pancytopenia with a combination of anemia neutropenia and thrombocytopenia all related to liver disease, see discussion above 15 acute hypothermia, improved 16 Mentally challenged/mental retardation with developmental delay 17 history of chronic pancreatitis post insertion of a pancreatic duct stenting 18 acute kidney injury on top of chronic stage III kidney disease patient remains oliguric and the urine output is in the order of less than 10 mL an hour. Plan 80 vent support. Dropped FiO2 down to 60%. Increased respiratory rate up to 20. I do not see the need for a bicarb drip. We'll repeat the blood has and decide on further events he thinks. Meanwhile, the patient will be kept on normal saline infusion at the rate of 1 50 mL an hour. The patient will be kept on his sedation knowing that he has been aggressively sedated and will titrate for a gentle sedation for now. Continue enteral feeding for nutritional support. Continue pressors and norepinephrine infusion is pretty much maxed out at this point in time and will add vasopressin for hemodynamic support and hopefully this will be able to allow us to cut down the norepinephrine infusion. This will be started at physiologic dose of 0.03 units per minute. Meanwhile, we'll check a serum cortisol level at baseline. Continue the zarxio white cell count. As a broad-spectrum antibiotics. Continue enteral feeding for history and support. We met with the family yesterday and they are kind have a family meeting today and make further decisions regarding the plan of care. The patient had any resuscitate. The family is considering possibly withdrawing from point. A critically care evaluation that was done and more than 30 minutes. Time with Patient: Greater than 30
[2019-06-28] MEDS: CALCITRIOL 0.25 MCG CAP PO SCH ×2 (09:34→09:49)
[2019-06-28] MEDS: CHLORHEXIDINE GLUCONATE 15 ML CUP MUCOUS MEM SCH (09:34)
[2019-06-28] MEDS: HEPARIN SODIUM,PORCINE 5,000 UNIT/ML 1 ML VIAL SQ SCH (09:35)
[2019-06-28] MEDS: TAMSULOSIN 0.4 MG CAP.ER.24H PO SCH ×2 (09:37→09:47)
[2019-06-28] MEDS: FOLIC ACID 1 MG TAB PO SCH (09:38)
[2019-06-28] MEDS: PIPERACILLIN-TAZOBACTAM 3.375 GM in SODIUM CHLORIDE 0.9% 100 ML IVPB SCH (09:39)
[2019-06-28] MEDS: PANTOPRAZOLE 40 MG/10 ML VIAL IV SCH (09:39)
[2019-06-28] MEDS: FILGRASTIM-SNDZ 480 MCG/0.8 ML SYRINGE SQ SCH (09:47)
[2019-06-28] MEDS ORDERED: SODIUM CHLORIDE 0.9% 50 ML with VASOPRESSIN 20 UNIT IVPB SCH ×2 (10:00)
[2019-06-28 10:12] VITALS: RESP 20; TEMP 98.8
[2019-06-28 12:08] LABS: ABG Base Excess -15.7 mmol/L; ABG HCO3 13 mmol/L (21-25); ABG Oxygen Saturation 96.5 % (94-97); ABG PCO2 37 mmHg (35-45); ABG PO2 96 mmHg (83-108); ABG TCO2 14 mmol/L (19-24); Allen Test Performed? Yes
[2019-06-28 12:10] LABS: ABG PH 7.16 (7.35-7.45)
[2019-06-28 12:23] LABS: Free Kappa Lt Chain Qnt, Serum 7.14 mg/dL (0.33-1.94)
[2019-06-28 12:42] LABS: Glucose,Whole Blood 92 mg/dL (75-99)
[2019-06-28 14:09] VITALS: BP 114/53
[2019-06-28] MEDS ORDERED: MORPHINE SULFATE 2 MG/ML SYRINGE IV PRN (14:29)
[2019-06-28] MEDS ORDERED: LORazepam 2 MG/ML INJ IV PRN (14:29)
[2019-06-28] MEDS ORDERED: ATROPINE OPHTH SOLN 1% 5ML BTL SUBLINGUAL PRN (14:29)
[2019-06-28] MEDS ORDERED: SCOPOLAMINE 1.5MG/72HR PATCH TRANSDERM SCH (14:30)
[2019-06-28] MEDS ORDERED: MORPHINE SULFATE (100 MG/2 ML) 100 MG in SODIUM CHLORIDE 0.9% 100 ML IV SCH (14:30)
[2019-06-28 15:03] VITALS: PULSE 70
--- NOTE | 2019-06-28 22:27 | P.PN ---
Subjective Progress Note Date: 06/28/19 79-year-old male with a history of developmental delay has had several hospitalizations was recently at this facility where he had evidence of pneumonia and acute hypoxic respiratory failure. He was treated for pneumonia and was cared for an extended care facility. Apparently there is a sudden change in his status where he came acutely ill with a bout of emesis that apparently was coffee-ground in nature. The patient was noted to be hypotensive and hypothermic. He was transferred to an outside hospital where he was found to be with a temperature of 85, hemoglobin was low at 6.9 he had hypotension. We see some fluid resuscitation was transferred to our emergency center. It is noted at the outside facility he did receive 2 units of packed red cells for his significant anemia. It was thought that he was having gastrointestinal bleeding. He required intubation time of his arrival and also required norepinephrine for his hypotension. A warming blanket was utilized with his prior cultures she was treated with Zosyn and Levaquin. The patient remains on the ventilator. He is intubated sedated and mechanically ventilated and is on a lower dose of vasopressors and he was. He is receiving his sixth liter of IV fluids in addition to his 2 units of packed red cells. He continues to have poor urinary output. It is noticed that he also has worsening of his pancytopenia at this time. 06/28/2019 patient's status has continued to decline. He has required the addition of vasopressin to the norepinephrine. He has progressive acidosis and increasing difficulties with ventilation. He has poor urinary output and has evidence of overwhelming sepsis as noted by the significant neutropenia. Objective - Vital Signs Vital signs: Vital Signs Temp 98.8 F 06/28/19 12:15 Pulse 70 06/28/19 16:00 Resp 20 06/28/19 16:00 BP 114/53 06/28/19 14:00 Pulse Ox 94 L 06/28/19 16:00 Intake & Output 06/28/19 06/28/19 06/29/19 06:59 18:59 06:59 Intake Total 2701.988 2018.075 Output Total 45 1164 Balance 2656.988 854.075 Weight 72.8 kg Intake: IV 2021 1504 Magnesium Sulfate-D5w Pmx 200 1 gm In Dextrose/Water 1 100ml.bag @ 100 mls/hr IVPB Q1H [facility] Rx#: [id number] Normal Saline Pressure 72 54 Bag Piperacillin-Tazobactam 3 100 100 .375 gm In Sodium Chloride 0.9% 100 ml @ 25 mls/hr IVPB Q8HR [facility] Rx# :[id number] Sodium Chloride 0.9% 1, 1650 1350 000 ml @ 150 mls/hr IV . Q6H40M [facility] Rx#:[id number] Intake, IV Titration 529.988 284.075 Amount Norepinephrine 32 mg In 292.235 164.562 Sodium Chloride 0.9% 218 ml @ 0.05 MCG/KG/MIN 1. 758 mls/hr IV .Q24H [facility] Rx#:[id number] Propofol 1,000 mg In 87.753 119.513 Empty Bag 1 bag @ Titrate IV .Q0M [facility] Rx#: [id number] Sodium Chloride 0.9% 1, 150 000 ml @ 150 mls/hr IV . Q6H40M [facility] Rx#:[id number] Tube Feeding 90 170 Other 60 60 Output: Gastric Drainage 1100 Urine 45 64 Other: Voiding Method Indwelling Catheter Indwelling Catheter ABP, PAP, CO, CI - Last Documented Arterial Blood Pressure 126/50 - Exam 79-year-old male intubated sedated mechanically ventilated and on multiple vasopressor therapy HEENT: Anicteric conjunctiva are pale but moist nasal mucosa grossly intact without significant lesions, there is no thrush is visual around the oral endotracheal tube no bleeding of oral cavity Neck: The neck is supple without significant lymphadenopathy or thyromegaly. Lungs: Symmetrical bilaterally entry bibasilar crackles greater on the right Heart: mildly irregular positive [id number] is no significant murmur click or rub, PMI was nondisplaced. Abdomen: Positive bowel sounds soft and nontender without palpable masses or organomegaly. There was no guarding or rebound. Extremities: The upper extremities have excellent pulses they are symmetric, no significant petechiae or telangiectasia. No splinter hemorrhages were noted. choice have trace edema The left foot has no acute abnormality. The right foot is evidence of some injury with a wound to the lateral surface of the fifth metatarsal head, full-thickness without drainage. There is eschar on the dorsum of the toes 3 and 4 without erythema. Neuro: sedated and intubated - Labs CBC & Chem 7: 06/28/19 05:00 06/28/19 05:00 Labs: Abnormal Lab Results - Last 24 Hours (Table) 06/27/19 06/27/19 06/27/19 Range/Units 17:09 17:09 17:09 WBC (3.8-10.6) k/uL RBC (4.30-5.90) m/uL Hgb (13.0-17.5) gm/dL Hct (39.0-53.0) % MCV (80.0-100.0) fL RDW (11.5-15.5) % Plt Count (150-450) k/uL Neutrophils # (Manual) (1.3-7.7) k/uL Lymphocytes # (Manual) (1.0-4.8) k/uL Metamyelocytes # (Man) (0) k/uL Myelocytes # (Manual) (0) k/uL Nucleated RBCs (0-0) /100 WBC Macrocytosis ABG pH (7.35-7.45) ABG pCO2 (35-45) mmHg ABG pO2 (83-108) mmHg ABG HCO3 (21-25) mmol/L ABG Total CO2 (19-24) mmol/L ABG O2 Saturation (94-97) % Chloride (98-107) mmol/L Carbon Dioxide (22-30) mmol/L BUN (9-20) mg/dL Creatinine (0.66-1.25) mg/dL Glucose (74-99) mg/dL POC Glucose (mg/dL) (75-99) mg/dL Calcium (8.4-10.2) mg/dL Phosphorus (2.5-4.5) mg/dL Iron 9 L (65-175) ug/dL TIBC 192 L (228-460) ug/dL % Saturation 4.69 L (15.00-50.00) Ferritin 699.7 H (22.0-322.0) ng/mL Total Protein (6.3-8.2) g/dL Total Protein (PEP) 5.2 L (6.2-8.2) g/dL Albumin (3.5-5.0) g/dL Vitamin B12 3425.0 H (200.0-944.0) pg/mL RBC Folate 1,036 H (280 - 791) ng/mL Urine Protein (Negative) Urine Blood (Negative) Ur Leukocyte Esterase (Negative) Urine RBC (0-5) /hpf Urine WBC (0-5) /hpf Urine Bacteria (None) /hpf Hyaline Casts (0-2) /lpf Urine Mucus (None) /hpf Urine Yeast (Budding) (None) /hpf Free Council LC, Quant 7.14 H (0.33-1.94) mg/dL Free Lambda LC, Quant 3.04 H (0.57-2.63) mg/dL 06/27/19 06/28/19 06/28/19 Range/Units 23:00 00:01 04:56 WBC (3.8-10.6) k/uL RBC (4.30-5.90) m/uL Hgb (13.0-17.5) gm/dL Hct (39.0-53.0) % MCV (80.0-100.0) fL RDW (11.5-15.5) % Plt Count (150-450) k/uL Neutrophils # (Manual) (1.3-7.7) k/uL Lymphocytes # (Manual) (1.0-4.8) k/uL Metamyelocytes # (Man) (0) k/uL Myelocytes # (Manual) (0) k/uL Nucleated RBCs (0-0) /100 WBC Macrocytosis ABG pH 7.11 L* (7.35-7.45) ABG pCO2 46 H (35-45) mmHg ABG pO2 127 H (83-108) mmHg ABG HCO3 14 L (21-25) mmol/L ABG Total CO2 16 L (19-24) mmol/L ABG O2 Saturation 97.6 H (94-97) % Chloride (98-107) mmol/L Carbon Dioxide (22-30) mmol/L BUN (9-20) mg/dL Creatinine (0.66-1.25) mg/dL Glucose (74-99) mg/dL POC Glucose (mg/dL) 70 L (75-99) mg/dL Calcium (8.4-10.2) mg/dL Phosphorus (2.5-4.5) mg/dL Iron (65-175) ug/dL TIBC (228-460) ug/dL % Saturation (15.00-50.00) Ferritin (22.0-322.0) ng/mL Total Protein (6.3-8.2) g/dL Total Protein (PEP) (6.2-8.2) g/dL Albumin (3.5-5.0) g/dL Vitamin B12 (200.0-944.0) pg/mL RBC Folate (280 - 791) ng/mL Urine Protein 1+ H (Negative) Urine Blood Moderate H (Negative) Ur Leukocyte Esterase Trace H (Negative) Urine RBC 66 H (0-5) /hpf Urine WBC 19 H (0-5) /hpf Urine Bacteria Rare H (None) /hpf Hyaline Casts 27 H (0-2) /lpf Urine Mucus Rare H (None) /hpf Urine Yeast (Budding) Occasional H (None) /hpf Free Council LC, Quant (0.33-1.94) mg/dL Free Lambda LC, Quant (0.57-2.63) mg/dL 06/28/19 06/28/19 06/28/19 Range/Units 05:00 05:00 05:01 WBC 1.2 L* (3.8-10.6) k/uL RBC 3.22 L (4.30-5.90) m/uL Hgb 10.6 L (13.0-17.5) gm/dL Hct 33.7 L (39.0-53.0) % MCV 104.9 H (80.0-100.0) fL RDW 18.8 H (11.5-15.5) % Plt Count 98 L (150-450) k/uL Neutrophils # (Manual) 0.80 L (1.3-7.7) k/uL Lymphocytes # (Manual) 0.26 L (1.0-4.8) k/uL Metamyelocytes # (Man) 0.05 H (0) k/uL Myelocytes # (Manual) 0.02 H (0) k/uL Nucleated RBCs 9 H (0-0) /100 WBC Macrocytosis Marked A ABG pH (7.35-7.45) ABG pCO2 (35-45) mmHg ABG pO2 (83-108) mmHg ABG HCO3 (21-25) mmol/L ABG Total CO2 (19-24) mmol/L ABG O2 Saturation (94-97) % Chloride 119 H (98-107) mmol/L Carbon Dioxide 16 L (22-30) mmol/L BUN 38 H (9-20) mg/dL Creatinine 2.29 H (0.66-1.25) mg/dL Glucose 58 L (74-99) mg/dL POC Glucose (mg/dL) 61 L (75-99) mg/dL Calcium 6.7 L (8.4-10.2) mg/dL Phosphorus 6.7 H (2.5-4.5) mg/dL Iron (65-175) ug/dL TIBC (228-460) ug/dL % Saturation (15.00-50.00) Ferritin (22.0-322.0) ng/mL Total Protein 4.3 L (6.3-8.2) g/dL Total Protein (PEP) (6.2-8.2) g/dL Albumin 1.9 L (3.5-5.0) g/dL Vitamin B12 (200.0-944.0) pg/mL RBC Folate (280 - 791) ng/mL Urine Protein (Negative) Urine Blood (Negative) Ur Leukocyte Esterase (Negative) Urine RBC (0-5) /hpf Urine WBC (0-5) /hpf Urine Bacteria (None) /hpf Hyaline Casts (0-2) /lpf Urine Mucus (None) /hpf Urine Yeast (Budding) (None) /hpf Free Council LC, Quant (0.33-1.94) mg/dL Free Lambda LC, Quant (0.57-2.63) mg/dL 06/28/19 06/28/19 06/28/19 Range/Units 05:38 06:05 12:06 WBC (3.8-10.6) k/uL RBC (4.30-5.90) m/uL Hgb (13.0-17.5) gm/dL Hct (39.0-53.0) % MCV (80.0-100.0) fL RDW (11.5-15.5) % Plt Count (150-450) k/uL Neutrophils # (Manual) (1.3-7.7) k/uL Lymphocytes # (Manual) (1.0-4.8) k/uL Metamyelocytes # (Man) (0) k/uL Myelocytes # (Manual) (0) k/uL Nucleated RBCs (0-0) /100 WBC Macrocytosis ABG pH 7.16 L* (7.35-7.45) ABG pCO2 (35-45) mmHg ABG pO2 (83-108) mmHg ABG HCO3 13 L (21-25) mmol/L ABG Total CO2 14 L (19-24) mmol/L ABG O2 Saturation (94-97) % Chloride (98-107) mmol/L Carbon Dioxide (22-30) mmol/L BUN (9-20) mg/dL Creatinine (0.66-1.25) mg/dL Glucose (74-99) mg/dL POC Glucose (mg/dL) 62 L 102 H (75-99) mg/dL Calcium (8.4-10.2) mg/dL Phosphorus (2.5-4.5) mg/dL Iron (65-175) ug/dL TIBC (228-460) ug/dL % Saturation (15.00-50.00) Ferritin (22.0-322.0) ng/mL Total Protein (6.3-8.2) g/dL Total Protein (PEP) (6.2-8.2) g/dL Albumin (3.5-5.0) g/dL Vitamin B12 (200.0-944.0) pg/mL RBC Folate (280 - 791) ng/mL Urine Protein (Negative) Urine Blood (Negative) Ur Leukocyte Esterase (Negative) Urine RBC (0-5) /hpf Urine WBC (0-5) /hpf Urine Bacteria (None) /hpf Hyaline Casts (0-2) /lpf Urine Mucus (None) /hpf Urine Yeast (Budding) (None) /hpf Free Council LC, Quant (0.33-1.94) mg/dL Free Lambda LC, Quant (0.57-2.63) mg/dL Microbiology - Last 24 Hours (Table) 06/27/19 12:13 Acid Fast Bacilli Smear - Final Bronchial Washings - Right Acid Fast Bacilli Culture - Preliminary 06/27/19 12:13 Gram Stain - Preliminary Bronchial Washings - Right Bronchial Washings Culture - Preliminary 06/27/19 23:00 Urine Culture - Preliminary Urine,Voided 06/27/19 05:55 Blood Culture - Preliminary Blood No Growth after 24 hours 06/27/19 12:13 Fungal Culture - Preliminary Bronchial Washings - Right Laboratory Results WBC 1.2 k/uL (3.8-10.6) L* 06/28/19 05:00 RBC 3.22 m/uL (4.30-5.90) L 06/28/19 05:00 Hgb 10.6 gm/dL (13.0-17.5) L 06/28/19 05:00 Hct 33.7 % (39.0-53.0) L 06/28/19 05:00 MCV 104.9 fL (80.0-100.0) H 06/28/19 05:00 MCH 33.0 pg (25.0-35.0) 06/28/19 05:00 MCHC 31.4 g/dL (31.0-37.0) 06/28/19 05:00 RDW 18.8 % (11.5-15.5) H 06/28/19 05:00 Plt Count 98 k/uL (150-450) L 06/28/19 05:00 Neutrophils % (Manual) 62 % 06/28/19 05:00 Band Neutrophils % 6 % 06/28/19 05:00 Lymphocytes % (Manual) 22 % 06/28/19 05:00 Monocytes % (Manual) 4 % 06/28/19 05:00 Metamyelocytes % 4 % 06/28/19 05:00 Myelocytes % 2 % 06/28/19 05:00 Other Cells % % 06/28/19 05:00 Neutrophils # (Manual) 0.80 k/uL (1.3-7.7) L 06/28/19 05:00 Lymphocytes # (Manual) 0.26 k/uL (1.0-4.8) L 06/28/19 05:00 Monocytes # (Manual) 0.05 k/uL (0-1.0) 06/28/19 05:00 Metamyelocytes # (Man) 0.05 k/uL (0) H 06/28/19 05:00 Myelocytes # (Manual) 0.02 k/uL (0) H 06/28/19 05:00 Nucleated RBCs 9 /100 WBC (0-0) H 06/28/19 05:00 Differential Comment 06/27/19 17:09 Manual Slide Review Performed 06/27/19 17:09 Polychromasia Present 06/27/19 17:09 Hypochromasia Marked 06/28/19 05:00 Poikilocytosis Moderate 06/28/19 05:00 Poikilocytosis (manual Present 06/27/19 05:43 Anisocytosis Slight 06/28/19 05:00 Anisocytosis (manual) Present 06/27/19 05:43 Macrocytosis Marked A 06/28/19 05:00 PT 11.7 sec (9.0-12.0) 06/27/19 05:43 INR 1.1 (<1.2) 06/27/19 05:43 APTT 32.4 sec (22.0-30.0) H 06/27/19 05:43 Sample Site taty 06/28/19 12:06 ABG pH 7.16 (7.35-7.45) L* 06/28/19 12:06 ABG pCO2 37 mmHg (35-45) 06/28/19 12:06 ABG pO2 96 mmHg (83-108) 06/28/19 12:06 ABG HCO3 13 mmol/L (21-25) L 06/28/19 12:06 ABG Total CO2 14 mmol/L (19-24) L 06/28/19 12:06 ABG O2 Saturation 96.5 % (94-97) 06/28/19 12:06 ABG Base Excess -15.7 mmol/L 06/28/19 12:06 Aston Test Yes 06/28/19 12:06 ABG Lactic Acid 1.5 mmol/L (0.5-1.6) 06/28/19 05:35 VBG pH 7.37 (7.31-7.41) 06/27/19 05:43 VBG pCO2 36 mmHg (37-51) L 06/27/19 05:43 VBG HCO3 20 mmol/L (24-28) L 06/27/19 05:43 FiO2 60 % 06/28/19 12:06 Sodium 142 mmol/L (137-145) 06/28/19 05:00 Potassium 5.0 mmol/L (3.5-5.1) 06/28/19 05:00 Chloride 119 mmol/L (98-107) H 06/28/19 05:00 Carbon Dioxide 16 mmol/L (22-30) L 06/28/19 05:00 Anion Gap 7 mmol/L 06/28/19 05:00 BUN 38 mg/dL (9-20) H 06/28/19 05:00 Creatinine 2.29 mg/dL (0.66-1.25) H 06/28/19 05:00 Est GFR (CKD-EPI)AfAm 31 (>60 ml/min/1.73 sqM) 06/28/19 05:00 Est GFR (CKD-EPI)NonAf 27 (>60 ml/min/1.73 sqM) 06/28/19 05:00 Glucose 58 mg/dL (74-99) L 06/28/19 05:00 POC Glucose (mg/dL) 92 mg/dL (75-99) 06/28/19 12:40 POC Glu Building [employer] Hel[employer] Jannie Waters 06/28/19 12:40 Plasma Lactic Acid Alejandro 1.1 mmol/L (0.7-2.0) 06/27/19 05:18 Calcium 6.7 mg/dL (8.4-10.2) L 06/28/19 05:00 Ionized Calcium Maya 4.6 mg/dL (4.5-5.3) 06/28/19 05:00 Phosphorus 6.7 mg/dL (2.5-4.5) H 06/28/19 05:00 Magnesium 2.0 mg/dL (1.6-2.3) 06/28/19 05:00 Iron 9 ug/dL (65-175) L 06/27/19 17:09 TIBC 192 ug/dL (228-460) L 06/27/19 17:09 % Saturation 4.69 (15.00-50.00) L 06/27/19 17:09 Ferritin 699.7 ng/mL (22.0-322.0) H 06/27/19 17:09 Total Bilirubin 0.3 mg/dL (0.2-1.3) 06/28/19 05:00 AST 25 U/L (17-59) 06/28/19 05:00 ALT 23 U/L (21-72) 06/28/19 05:00 Alkaline Phosphatase 118 U/L (38-126) 06/28/19 05:00 Total Protein 4.3 g/dL (6.3-8.2) L 06/28/19 05:00 Total Protein (PEP) 5.2 g/dL (6.2-8.2) L 06/27/19 17:09 Albumin 1.9 g/dL (3.5-5.0) L 06/28/19 05:00 Vitamin B12 3425.0 pg/mL (200.0-944.0) H 06/27/19 17:09 RBC Folate 1,036 ng/mL (280 - 791) H 06/27/19 17:09 Cortisol 21 ug/dL 06/28/19 05:00 Urine Color Yellow 06/27/19 23:00 Urine Appearance Cloudy (Clear) 06/27/19 23:00 Urine pH 5.0 (5.0-8.0) 06/27/19 23:00 Ur Specific Hickman 1.016 (1.001-1.035) 06/27/19 23:00 Urine Protein 1+ (Negative) H 06/27/19 23:00 Urine Glucose (UA) Negative (Negative) 06/27/19 23:00 Urine Ketones Negative (Negative) 06/27/19 23:00 Urine Blood Moderate (Negative) H 06/27/19 23:00 Urine Nitrite Negative (Negative) 06/27/19 23:00 Urine Bilirubin Negative (Negative) 06/27/19 23:00 Urine Urobilinogen <2.0 mg/dL (<2.0) 06/27/19 23:00 Ur Leukocyte Esterase Trace (Negative) H 06/27/19 23:00 Urine RBC 66 /hpf (0-5) H 06/27/19 23:00 Urine WBC 19 /hpf (0-5) H 06/27/19 23:00 Ur Squamous Epith Cells 1 /hpf (0-4) 06/27/19 23:00 Urine Bacteria Rare /hpf (None) H 06/27/19 23:00 Hyaline Casts 27 /lpf (0-2) H 06/27/19 23:00 Urine Mucus Rare /hpf (None) H 06/27/19 23:00 Urine Yeast (Budding) Occasional /hpf (None) H 06/27/19 23:00 Rheumatoid Factor 8 IU/mL (0-15) 06/27/19 17:09 DANILO Screen NEGATIVE (NEGATIVE) 06/27/19 17: Free Council LC, Quant 7.14 mg/dL (0.33-1.94) H 06/27/19 17:09 Free Lambda LC, Quant 3.04 mg/dL (0.57-2.63) H 06/27/19 17:09 Microbiology 06/27/19 12:13 Bronchial Washings - Right Acid Fast Bacilli Smear - Final 06/27/19 12:13 Bronchial Washings - Right Acid Fast Bacilli Culture - Preliminary 06/27/19 12:13 Bronchial Washings - Right Gram Stain - Preliminary 06/27/19 12:13 Bronchial Washings - Right Bronchial Washings Culture - Preliminary 06/27/19 23:00 Urine,Voided Urine Culture - Preliminary 06/27/19 05:55 Blood Blood Culture - Preliminary No Growth after 24 hours 06/27/19 12:13 Bronchial Washings - Right Fungal Culture - Preliminary 06/27/19 04:46 Sputum Gram Stain - Preliminary 06/27/19 04:46 Sputum Sputum Culture - Preliminary Assessment and Plan (1) Aspiration pneumonia Narrative/Plan: 79-year-old male who was recently hospitalized which point in time he had hypoxic respiratory failure and with treatment and antibiotic therapy he had improvement. He was sent to rehabilitation to try to improve his strength however it appears that he had significant gastrointestinal bleeding resulting in hypotension coffee-ground emesis which resulted in aspiration. He then suffered respiratory failure and is now in the intensive care unit intubated sedated and mechanically ventilated. He is requiring vasopressor therapy but after his sixth liter of fluids he is having a downward titration of his vasopressor therapy. He is also 2 units of packed red cells. Patient has prior recent culture Zosyn and Levaquin are adequate choices. If he has any further decrease of his platelets within transitioned Zosyn to meropenem to be less impact on his platelets. Blood cultures are process, sputum culture from the bronchoscopy that was performed today are also pending. Bronchoscopy was for toileting given what appeared to be a large aspiration event. Overall his prognosis is very poor. The nursing staff has requested a family m eeting to clarify his status given his current very poor prognosis. 06/28/2019 the patient is continued to decline. He is now on multiple vasopressors and not having a good response. He remains profoundly acidotic and difficulty with oxygenation is occurring. Nursing staff relates that family is coming and will be transitioned to comfort care which is truly appropriate at this time. Current Visit: Yes Status: Acute Code(s): J69.0 - PNEUMONITIS DUE TO INHALATION OF FOOD AND VOMIT SNOMED Code(s): 017853913 (2) Pancytopenia Current Visit: Yes Status: Acute Code(s): D61.818 - OTHER PANCYTOPENIA SNOMED Code(s): 017046410 (3) Hypothermia Current Visit: Yes Status: Acute Code(s): T68.XXXA - HYPOTHERMIA, INITIAL ENCOUNTER SNOMED Code(s): 615194392
--- NOTE | 2019-06-28 22:31 | PN ---
PROGRESS NOTE DATE OF SERVICE: 06/28/2019. This 79-year-old gentleman who was admitted with bilateral aspiration pneumonia with acute hypoxic respiratory mechanical ventilation. Patient has history of hematemesis, also. The patient continues to be acidotic and features of acute respiratory failure. The patient is being closely monitored in ICU. Dr. Acharya and multiple consultants are following the patient closely. The cultures are negative so far. PAST MEDICAL HISTORY: Past medical history reviewed. REVIEW OF SYSTEMS: Could not be taken because the patient mechanically intubated. MEDICATIONS: Current medications are noted. 1. Isopto. 2. Ativan. 3. Morphine. 4. Peridex. 5. Rocaltrol. 6. Aranesp. 7. Depakote. 8. Iron sulfate. 9. OxyIR. 10.Folic acid. 11.Heparin. 12.Levaquin. 13.Doses are reviewed. PHYSICAL EXAM: Patient on mechanical ventilation. Pulse 68, blood pressure 132/50, respiration 20, temperature normal, pulse ox 94% on room air. HEENT: Conjunctivae normal. Oral mucosa moist. NECK is no jugular venous distention. No carotid bruit. No lymph node enlargement. Mechanical ventilation. Settings are noted. Cardiovascular system: S1, S2. No S3, no S4. RESPIRATIONS: Breath sounds diminished in the bases. No rhonchi. No crackles. ABDOMEN: Soft, nontender. NERVOUS SYSTEM: Patient is mechanically ventilated and sedated. LABS: WBC 1.2, hemoglobin 10.6. ASSESSMENT: 1. Acute bilateral pneumonia possibly aspiration with acute hypoxic respiratory failure on mechanical ventilation with failure of outpatient treatment, severe sepsis and septic shock and hypotension, present on admission. 2. Hematemesis with possible acute upper gastrointestinal bleeding with acute blood loss anemia. 3. Pancytopenia, undetermined etiology. 4. Severe neutropenia. 5. Increased creatinine with chronic kidney stage 3. 6. Hypoalbuminemia with mild to moderate protein calorie malnutrition. 7. History of recent bilateral pneumonia. 8. Hypothermia. 9. History of previous left leg cellulitis. 10.History of previous respiratory failure possibly secondary to congestive heart failure acute exacerbation with acute on chronic systolic dysfunction. 11.Diabetes mellitus type 2. 12.Hypertension. 13.Hyperlipidemia. 14.History of myocardial infarction. 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 16.History of bladder tumor. 17.History of coronary artery disease, stent. 18.History of cataracts. 19.Remote history of depression. RECOMMENDATIONS AND DISCUSSION: Recommend to continue current medications, monitoring and symptomatic treatment. Otherwise, continue with the bronchodilators, antibiotics. Continue the proton pump inhibitors. Guarded prognosis because of multiple complex medical issues. managed per Pulmonary and discussed with the family at length. Further recommendations to follow. The family also discussed the information for the options including hospice also. Prognosis guarded. Once again, we will discuss with Dr. Acharya. OXANA / RACHEL: [id number] / MAR
[2019-06-29] MEDS ORDERED: LEVOFLOXACIN 750MG-D5W PMX 750 MG in DEXTROSE/WATER 1 150ML.BAG IVPB SCH (08:00)
[2019-06-29] MEDS ORDERED: DARBEPOETIN ALFA 40 MCG/0.4 ML SYRINGE SQ SCH (09:00)
[2019-06-29 09:24] LABS: Methylmalonic Acid 0.34 umol/L (<0.40)
--- NOTE | 2019-06-29 22:43 | DS ---
DISCHARGE SUMMARY PRELIMINARY CAUSE OF : Bilateral aspiration pneumonia. OTHER DIAGNOSES: 1. Acute hypoxic respiratory failure, on mechanical ventilation with failure of outpatient treatment. 2. Severe sepsis and septic shock and hypotension, present on admission. 3. Hematemesis as well as upper gastrointestinal bleeding with acute blood loss anemia. 4. Pancytopenia of undetermined etiology. 5. Severe neutropenia. 6. Increased creatinine with chronic kidney disease, stage III. 7. Hypoalbuminemia with mild to moderate protein-calorie malnutrition. 8. History of recent bilateral pneumonia. 9. Hypothermia. 10.History of previous left leg cellulitis. 11.History of previous respiratory failure, possibly secondary to congestive heart failure, acute exacerbation, as well as acute on chronic systolic dysfunction. 12.Diabetes mellitus, type 2. 13.Hypertension. 14.Hyperlipidemia. 15.History of myocardial infarction. 16.History of anti-mitochondrial antibody positive recently. 17.History of bladder tumor. 18.History of coronary artery disease, stent. 19.History of cataracts. 20.History of depression. HISTORY OF PRESENT ILLNESS: This 79-year-old gentleman with a past medical history of multiple medical problems was admitted with acute bilateral pneumonia, aspiration after an episode of hematemesis and coffee-grounds emesis. The patient also had features of acute hypoxic respiratory failure. Patient was mechanically ventilated. The patient's condition continued to be grave. The case was discussed with the family at length. Dr. Acharya evaluated the patient closely and hospice was recommended. The patient was transitioned to hospice care and succumbed to his above-mentioned multiple complex medical issues. The prognosis was extremely guarded throughout the hospital stay, which was discussed with the family on multiple occasions. Please refer to the multiple consultations and progress reports for further details. MMODL / IJN: [id number] / MAR
[2019-06-30 09:22] LABS: Albumin 2.33 g/dL (3.80-4.90); Gamma Globulin 0.92 g/dL (0.70-1.50)
== END 2019-06-28 16:26 | disposition expired | DRG 871 ==
LOC: EC 04:13 → 2SICU 04:32
PROVIDERS: ADMIT Hospitalist; ATTEND Hospitalist
PROC: 0B978ZZ Drainage of Left Main Bronchus, Via Natural or Artificial Opening Endoscopic (ICD-10-PCS; 2019-06-27)
PROC: 0B918ZZ Drainage of Trachea, Via Natural or Artificial Opening Endoscopic (ICD-10-PCS; 2019-06-27)
PROC: 0B938ZZ Drainage of Right Main Bronchus, Via Natural or Artificial Opening Endoscopic (ICD-10-PCS; 2019-06-27)
PROC: 0B9D8ZX Drainage of Right Middle Lung Lobe, Via Natural or Artificial Opening Endoscopic, Diagnostic (ICD-10-PCS; 2019-06-27)
PROC: 03HY32Z Insertion of Monitoring Device into Upper Artery, Percutaneous Approach (ICD-10-PCS; 2019-06-27)
PROC: 4A133B1 Monitoring of Arterial Pressure, Peripheral, Percutaneous Approach (ICD-10-PCS; 2019-06-27)
PROC: 4A133J1 Monitoring of Arterial Pulse, Peripheral, Percutaneous Approach (ICD-10-PCS; 2019-06-27)
PROC: 0D9670Z Drainage of Stomach with Drainage Device, Via Natural or Artificial Opening (ICD-10-PCS; 2019-06-27)
PROC: 3E0G76Z Introduction of Nutritional Substance into Upper GI, Via Natural or Artificial Opening (ICD-10-PCS; 2019-06-27)
PROC: 5A1945Z Respiratory Ventilation, 24-96 Consecutive Hours (ICD-10-PCS; principal; 2019-06-27 11:30)
DX: A41.9 Sepsis, unspecified organism (principal); R65.21 Severe sepsis with septic shock; J69.0 Pneumonitis due to inhalation of food and vomit; J96.01 Acute respiratory failure with hypoxia; E87.4 Mixed disorder of acid-base balance; D62 Acute posthemorrhagic anemia; E44.1 Mild protein-calorie malnutrition; I13.0 Hypertensive heart and chronic kidney disease with heart failure and stage 1 through stage 4 chronic kidney disease, or unspecified chronic kidney disease; K92.0 Hematemesis; K86.1 Other chronic pancreatitis; D61.818 Other pancytopenia; N17.9 Acute kidney failure, unspecified; I50.22 Chronic systolic (congestive) heart failure; Z66 Do not resuscitate; Z51.5 Encounter for palliative care; E11.22 Type 2 diabetes mellitus with diabetic chronic kidney disease; D70.3 Neutropenia due to infection; N18.3 Chronic kidney disease, stage 3 (moderate); K74.60 Unspecified cirrhosis of liver; I25.10 Atherosclerotic heart disease of native coronary artery without angina pectoris; R76.0 Raised antibody titer; E78.5 Hyperlipidemia, unspecified; H35.30 Unspecified macular degeneration; F89 Unspecified disorder of psychological development; I25.2 Old myocardial infarction; Z68.24 Body mass index [BMI] 24.0-24.9, adult; Z79.4 Long term (current) use of insulin; Z79.890 Hormone replacement therapy; Z79.899 Other long term (current) drug therapy; Z86.69 Personal history of other diseases of the nervous system and sense organs; Z95.5 Presence of coronary angioplasty implant and graft; Z90.6 Acquired absence of other parts of urinary tract; Z98.41 Cataract extraction status, right eye; Z96.89 Presence of other specified functional implants; Z87.891 Personal history of nicotine dependence; Z86.59 Personal history of other mental and behavioral disorders; Z85.51 Personal history of malignant neoplasm of bladder; Z88.8 Allergy status to other drugs, medicaments and biological substances; Z80.1 Family history of malignant neoplasm of trachea, bronchus and lung; Z82.5 Family history of asthma and other chronic lower respiratory diseases; Z83.79 Family history of other diseases of the digestive system; Z82.49 Family history of ischemic heart disease and other diseases of the circulatory system; Z83.3 Family history of diabetes mellitus; Z83.49 Family history of other endocrine, nutritional and metabolic diseases
CPT/HCPCS: 31624; 36600; 71045; 80053; 81001; 82330; 82533; 82607; 82728; 82747; 82803; 82805; 83540; 83550; 83605; 83735; 83883; 83921; 84100; 84165; 85025; 85610; 85730; 86038; 86334; 86431; 87040; 87070; 87086; 87102; 87116; 87205; 87206; 87252; 93005; 94002; 94003; 94640; 96365; 96366; 99285